=== PATIENT | male | born 1950 | race Caucasian/White ===

== ENCOUNTER 2016-09-24 12:22 | Emergency (ER) | payer OTHER ==
[2016-09-24] VITALS (16 sets, daily range): BP systolic 147–208; BP diastolic 94–175; PULSE 93–100; TEMP 36.8; O2SAT 94–99; Ht 172.7 cm; Wt 95.0 kg
[~2016-09-24] VITALS: Ht 172.7 cm; Wt 95.0 kg
[~2016-09-24 12:22] MED LIST: ACET-1256 PO; CARB25TA16 PO; CLON0.5T3 PO; CYAN10004 PO; DTRSR4 PO; FERR1TAB13 PO; FISHOIL PO; LISI-461 PO; METO25TA56 PO; NIAC500T8 PO; PRLSR20 PO; ROPI1TAB72 PO; ROPI4TAB3 PO; SNM/25100 PO; TAMS0.4C38 PO
[2016-09-24] MEDS ORDERED: SODIUM CHLORIDE 0.9% 500ML 500 ML IV STA (13:05)
[2016-09-24] MEDS ORDERED: PROPOFOL IV EMULSION 10 MG/ML 20 ML VIAL IV STA (13:05)
[2016-09-24] MEDS ORDERED: METOCLOPRAMIDE HCL INJ 5 MG/ML 2 ML VIAL IV STA (13:05)
[2016-09-24] MEDS ORDERED: FENTANYL CITRATE INJ 50 MCG/1 ML 2 ML VIAL IV STA ×2 (13:24→13:25)
--- NOTE | 2016-09-24 13:29 | DIAGNOSTIC IMAGING REPORT ---
RIGHT SHOULDER MIN 2 VIEWS ROUTINE CLINICAL HISTORY: Right shoulder pain COMPARISON: 08/23/2016 DISCUSSION: There is an anterior dislocation of the right shoulder. No fractures are visualized the provided images. IMPRESSION: Anterior dislocation. Electronically signed by: Sam Jordan M.D. 09/24/2016 1:27 PM Dictated Date/Time: 09/24/2016 1:25 PM
--- NOTE | 2016-09-24 13:33 | DIAGNOSTIC IMAGING REPORT ---
UPRIGHT AP CHEST RADIOGRAPH CLINICAL HISTORY: Right shoulder pain. Right shoulder dislocation COMPARISON STUDY: Chest radiograph June 27, 2016. FINDINGS: Electronic device is noted within the left hemithorax. Lung volumes are mildly diminished. No pneumothorax or pleural effusion is present. Cardiomediastinal silhouette is stable. A hiatal hernia is noted. There is no evidence of pulmonary edema. A suspected anterior right shoulder dislocation is better depicted on the right shoulder radiographs. IMPRESSION: 1. No acute cardiopulmonary findings. 2. Suspected anterior right shoulder dislocation, better depicted on the right shoulder radiographs. 3. Large hiatal hernia. Electronically signed by: Nilay Perdomo M.D. 09/24/2016 1:31 PM Dictated Date/Time: 09/24/2016 1:29 PM
--- NOTE | 2016-09-24 14:19 | DIAGNOSTIC IMAGING REPORT ---
RIGHT SHOULDER 1 VIEW CLINICAL HISTORY: POST REDUCTION Right. Right shoulder dislocation. COMPARISON STUDY: Right shoulder 09/24/2016. FINDINGS: Persistent anterior dislocation at the right shoulder. Large defect at the humeral head consistent with a Hill-Sachs impaction fracture remains unchanged. This is considered to be chronic. The clavicle is intact. IMPRESSION: No change in the right anterior shoulder dislocation. Electronically signed by: Sanket Kilpatrick M.D. 09/24/2016 2:17 PM Dictated Date/Time: 09/24/2016 2:15 PM
--- NOTE | 2016-09-24 14:29 | DIAGNOSTIC IMAGING REPORT ---
RIGHT SHOULDER 1 VIEW CLINICAL HISTORY: Pt c/o Rt shoulder pain Right. Postreduction. COMPARISON STUDY: Right shoulder 09/24/2016. FINDINGS: Status post reduction of the right anterior shoulder dislocation. Alignment is anatomic. There is a chronic Hill-Sachs impaction fracture. The right clavicle is intact. IMPRESSION: Status post reduction of the right anterior shoulder dislocation. Alignment is anatomic at this time. Electronically signed by: Sanket Kilpatrick M.D. 09/24/2016 2:27 PM Dictated Date/Time: 09/24/2016 2:26 PM
--- NOTE | 2016-09-24 14:38 | EMERGENCY ROOM VISIT NOTE ---
ED Visit Note I was asked by Dr. Maharaj to perform right shoulder reduction to an anterior dislocation. Dr. Maharaj provided conscious sedation. The patient was placed in a supine position. With scapular manipulation and manipulation of the arm, the shoulder was reduced. And initial post reduction film indicated that the shoulder was dislocated. An attempt was made again and the shoulder was easily reduced with manual manipulation. The patient tolerated the procedure well.
--- NOTE | 2016-10-29 18:18 | EMERGENCY ROOM VISIT NOTE ---
Post-Moderate Sedation Plan General Date of Moderate Sedation Sep 24, 2016. Review - Discharge Plan Post Moderate Sedation Plan: On clinical assessment, the patient appears to have tolerated the conscious sedation without complications. Patient is recovering as anticipated. Patient will continue to be monitored by nursing and may be discharged when conscious sedation discharge criteria are met.
--- NOTE | 2016-10-29 18:18 | EMERGENCY ROOM VISIT NOTE ---
Pre-Mod Sedation Assessment General Date of Moderate Sedation: Sep 24, 2016. Review Cardiovascular: regular rate, rhythm, no edema, no gallop, no JVD, no murmur, normal peripheral pulses Abdomen: normal bowel sounds, non tender, soft, no organomegaly, no pulsatile mass, normal rectal exam, occult blood negative Lungs: chest non-tender, lungs clear, normal breath sounds, no respiratory distress, no accessory muscle use Pre-Sedation Airway Assessment Oral Cavity: WNL Short Thick Neck: No Hx of Sleep Apnea: No Smoking Status: Unknown if Ever Smoked Mallampati Classification: Class I (Sft palate,uvula,fauces,pillar) ASA Classification: Class I Procedure Planning Contraindications-for Mod Sed: None Yes Notes The planned sedation has been discussed with the patient and consent obtained. I have identified the patient, determined the appropriateness of sedation and have assessed the patient immediately prior to the procedure. All medicine(s) and interventions are by my order.
--- NOTE | 2016-10-29 18:19 | EMERGENCY ROOM VISIT NOTE ---
History Report prepared by Oma: Fanny Arita Under the Supervision of: Dr. Karl Maharaj M.D. First contact with patient: 12:54 Chief Complaint: SHOULDER DISLOCATION Stated Complaint: DISLOCATED SHOULDER History of Present Illness The patient is a 66 year old male who presents to the Emergency Room for evaluation of a possible shoulder dislocation after propping his arm up on the refrigerator 2 hours prior to arrival. Currently, he rates his discomfort as an 8/10, and he is unable to move his right arm secondary to his discomfort. At the time of onset, the patient was leaning with his right arm propped up on the refrigerator when it suddenly gave out on him and felt like it dislocated from the socket. He has previously dislocated his right shoulder 4 other times, and his symptoms feel similar to that time. Patient has followed up with Dr. Man for his recurring shoulder dislocations but is not able to get an MRI secondary to stimulator placement for hx of Parkinson's. Patient denies other injuries or complaints at this time. 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 A total of 10 systems reviewed and were otherwise negative. Past Medical & Surgical Medical Problems: (1) COPD (chronic obstructive pulmonary disease) (2) Parkinson disease Family History Hypertension Kidney disease Kidney stones Social History Smoking Status: Former Smoker Alcohol Use: none Drug Use: none Housing Status: lives with family Occupation Status: disabled Current/Historical Medications Scheduled Clonazepam (Klonopin), 1 MG PO HS Cyanocobalamin (Vitamin B-12 1000 Mcg), 2,000 MCG PO DAILY Ferrous Sulfate (Kp Ferrous Sulfate), 1 TAB PO DAILY Fish Oil ([place]ine-3), 1 CAP PO BID Levodopa/Carbidopa (Sinemet 25MG/100MG), 1.5 TABS PO 6XD Levodopa/Carbidopa (Sinemet Cr 25MG/100MG), 1 TAB PO HS Lisinopril (Zestril), 10 MG PO DAILY Metoprolol Tartrate (Lopressor) (Lopressor), 25 MG PO BID Niacin (Niacin), 500 MG PO DAILY Omeprazole (Prilosec), 20 MG PO DAILY Ropinirole (Requip), 4 MG PO QID Ropinirole Hydrochloride (Ropinirole Er), 12 MG PO HS Tamsulosin Hcl (Flomax), 0.4 MG PO HS Tolterodine Tartrate (Detrol LA), 4 MG PO HS Scheduled PRN Acetaminophen (Tylenol), 1,000 MG PO Q6H PRN for Pain Allergies Coded Allergies: No Known Allergies (Unverified , 09/24/16) Physical Exam Vital Signs Date Time Temp Pulse Resp B/P Pulse Ox O2 Delivery O2 Flow Rate FiO2 09/24/16 15:04 99 18 161/101 94 Room Air 09/24/16 14:53 99 28 167/108 95 Room Air 09/24/16 14:48 98 28 173/105 98 Nasal Cannula 4.0 09/24/16 14:43 97 31 178/102 99 Nasal Cannula 4.0 09/24/16 14:38 98 26 164/107 99 Nasal Cannula 4.0 09/24/16 14:38 178/102 09/24/16 14:33 164/107 09/24/16 14:33 96 32 171/108 98 Nasal Cannula 4.0 09/24/16 14:29 171/108 09/24/16 14:28 97 32 147/98 97 Nasal Cannula 4.0 09/24/16 14:23 99 30 155/94 97 Nasal Cannula 4.0 09/24/16 14:23 147/98 09/24/16 14:22 98 22 97 09/24/16 14:18 95 34 156/98 96 Nasal Cannula 4.0 09/24/16 14:18 155/94 09/24/16 14:13 156/98 09/24/16 14:13 95 36 156/98 96 Nasal Cannula 4.0 09/24/16 14:08 95 30 168/101 96 Nasal Cannula 4.0 09/24/16 14:08 170/106 09/24/16 14:03 96 28 174/103 97 Nasal Cannula 4.0 09/24/16 14:03 168/101 09/24/16 14:01 174/103 09/24/16 13:58 98 24 208/175 95 Nasal Cannula 4.0 09/24/16 13:57 208/175 09/24/16 13:53 100 22 180/144 96 Nasal Cannula 4.0 09/24/16 13:52 102 40 180/144 95 09/24/16 13:50 70 09/24/16 13:43 166/99 09/24/16 13:43 93 36 166/99 97 Nasal Cannula 4.0 09/24/16 13:34 36.8 93 33 178/107 98 2.0 09/24/16 12:27 36.2 89 36 142/92 93 Room Air Physical Exam GENERAL: Patient is an elderly appearing 66 year old male. HEAD: Normocephalic atraumatic EYES: Ocular movements intact pupils equal and react to light OROPHARYNX mucous membranes are moist no exudates present no erythema or edema present NECK: Supple no nuchal rigidity CHEST: Good equal expansion LUNGS: Clear and equal to auscultation CARDIAC: Normal S1 and S2 ABDOMEN: Soft nontender no guarding BACK: No CVA tenderness EXTREMITIES: Right shoulder dislocated. NVI at the wrist. Good range of motion of the elbow and wrist. NEURO: Patient is following commands is answering questions appropriately. Alert and oriented x3 Cranial Nerves 2-12 grossly intact Medical Decision & Procedures ER Provider Diagnostic Interpretation: X-ray results as stated below per interpretation by me and the radiologist: RIGHT SHOULDER MIN 2 VIEWS ROUTINE CLINICAL HISTORY: Right shoulder pain COMPARISON: 08/23/2016 DISCUSSION: There is an anterior dislocation of the right shoulder. No fractures are visualized the provided images. IMPRESSION: Anterior dislocation. Electronically signed by: Sam Jordan M.D. 09/24/2016 1:27 PM Dictated Date/Time: 09/24/2016 1:25 PM UPRIGHT AP CHEST RADIOGRAPH CLINICAL HISTORY: Right shoulder pain. Right shoulder dislocation COMPARISON STUDY: Chest radiograph June 27, 2016. FINDINGS: Electronic device is noted within the left hemithorax. Lung volumes are mildly diminished. No pneumothorax or pleural effusion is present. Cardiomediastinal silhouette is stable. A hiatal hernia is noted. There is no evidence of pulmonary edema. A suspected anterior right shoulder dislocation is better depicted on the right shoulder radiographs. IMPRESSION: 1. No acute cardiopulmonary findings. 2. Suspected anterior right shoulder dislocation, better depicted on the right shoulder radiographs. 3. Large hiatal hernia. Electronically signed by: Nilay Perdomo M.D. 09/24/2016 1:31 PM Dictated Date/Time: 09/24/2016 1:29 PM RIGHT SHOULDER 1 VIEW CLINICAL HISTORY: POST REDUCTION Right. Right shoulder dislocation. COMPARISON STUDY: Right shoulder 09/24/2016. FINDINGS: Persistent anterior dislocation at the right shoulder. Large defect at the humeral head consistent with a Hill-Sachs impaction fracture remains unchanged. This is considered to be chronic. The clavicle is intact. IMPRESSION: No change in the right anterior shoulder dislocation. Electronically signed by: Sanket Kilpatrick M.D. 09/24/2016 2:17 PM Dictated Date/Time: 09/24/2016 2:15 PM RIGHT SHOULDER 1 VIEW CLINICAL HISTORY: Pt c/o Rt shoulder pain Right. Postreduction. COMPARISON STUDY: Right shoulder 09/24/2016. FINDINGS: Status post reduction of the right anterior shoulder dislocation. Alignment is anatomic. There is a chronic Hill-Sachs impaction fracture. The right clavicle is intact. IMPRESSION: Status post reduction of the right anterior shoulder dislocation. Alignment is anatomic at this time. Electronically signed by: Sanket Kilpatrick M.D. 09/24/2016 2:27 PM Dictated Date/Time: 09/24/2016 2:26 PM Medications Administered Medications (Trade) Dose Ordered Sig/Luz Route Start Time Stop Time Status Last Admin Dose Admin Metoclopramide HCl 10 mg 10 mg NOW STAT IV 09/24/16 13:05 09/24/16 13:07 DC 09/24/16 13:44 10 MG Sodium Chloride (Nss 500ml) 500 ml @ 999 mls/hr Q31M STAT IV 09/24/16 13:05 09/24/16 13:35 DC 09/24/16 13:45 999 MLS/HR Fentanyl Citrate (Fentanyl Inj) 100 mcg NOW STAT IV 09/24/16 13:25 09/24/16 13:27 DC 09/24/16 13:44 100 MCG Procedure Procedural Sedation Indication Shoulder dislocation. Total time: 30 minutes. Written consent was obtained after the risks and benefits were explained to the patient and , including, but not limited to aspiration, allergic reaction, breathing difficulties, cardiac complications, vomiting, pain, event recall, bleeding, and/or infection. Pre-sedation examination and paperwork completed. The patient was on 100% oxygen via NRB prior to the procedure. Continous end tidal CO2 monitoring, pulse oximetry, and cardiac monitoring were utilized. Suction, airway equipment, medications, respiratory equipment, and appropriate personnel were prepared prior to the initiation of the procedure. A time out was taken. Sedation was achieved utilizing 260 mg of Propofol in tritiated dosages of 20 mg. After I observed the patient had reached the appropriate level of sedation the main procedure was performed without complication. Sedation was discontinued and the monitoring continued. The patient recovered quickly from the effects of the medication without complication or adverse event. ED Course 1255: Past medical records reviewed. The patient was evaluated in room C8. A complete history and physical examination was performed. 1305: I discussed the reduction procedure and risks of conscious sedation with the patient and his . They verbalized their understanding and agreement with this. NSS 500 ml @ 999 mls/hr IV and Reglan 10 mg IV and Propofol 50 mg IV were ordered. 1324: Fentanyl Citrate 50 mcg IV and Fentanyl Citrate 100 mcg IV were ordered. 1345: Patient was consciously sedated at this time, and reduction was preformed with the help of Mary Russell PA-C. Refer to her note for procedure detail as well. 1420: Patient's shoulder was successfully reduced. Final x-rays will be obtained to make sure it is in proper place. 1430: I updated the patient on the results of his radiology reports. Additional discharge instructions were also discussed. He will be referred to orthopedics as an outpatient. He verbalized his understanding and agreement with the treatment plan, and he is now ready for disposition. Medical Decision Differential diagnosis: Etiologies such as fracture, dislocation, neurovascular compromise, compartment syndrome, soft tissue injury, as well as others were entertained. This is a 66-year-old male who presents emergency department complaining of. The shoulder was reduced by Mary Russell under conscious sedation as above. Please see her note. Patient will follow-up with orthopedics. Patient was in agreement with the treatment plan. Impression Primary Impression: Dislocation of right shoulder joint Scribe Attestation The scribe's documentation has been prepared under my direction and personally reviewed by me in its entirety. I confirm that the note above accurately reflects all work, treatment, procedures, and medical decision making performed by me. Departure Information Dispostion Home / Self-Care Referrals Miguel Angel Curran D.O. (PCP) Forms HOME CARE DOCUMENTATION FORM, IMPORTANT VISIT INFORMATION Patient Instructions My [facility] Additional Instructions Follow up with DR Vazquez's office You received narcotic or benzodiazepene medication while in the emergency room today. Do not drive, operate heavy machinery, or drink alcohol under the influence of this medication. You have been examined and treated today on an emergency basis only. This is not a substitute for, or an effort to provide, complete comprehensive medical care. It is impossible to recognize and treat all injuries or illnesses in a single emergency department visit. It is therefore important that you follow up closely with Dr Curran. Call as soon as possible for an appointment. Thank you for your time and consideration. I look forward to speaking with you again soon. Please don't hesitate to call us if you have any questions. Problem Qualifiers Primary Impression: Dislocation of right shoulder joint Encounter type: initial encounter Qualified Codes: S43.004A - Unspecified dislocation of right shoulder joint, initial encounter
[2016-12-10] MEDS ORDERED: CPR500 PO ×2 (14:24→14:25)
[2016-12-10] MEDS ORDERED: LCTX PO ×2 (14:24→14:25)
[2016-12-10] MEDS ORDERED: FLM4 PO ×2 (14:24→14:25)
[2017-03-21] MEDS ORDERED: VNCS250 PO (17:28)
[2017-03-21] MEDS ORDERED: CLON0.5T3 PO (17:28)
[2017-03-21] MEDS ORDERED: OXYC10SO PO (17:28)
[2017-03-21] MEDS ORDERED: LORA1TAB13 PO (17:28)
[2017-03-21] MEDS ORDERED: MLXC PO (17:28)
[2017-03-21] MEDS ORDERED: SCOP1DIS14 TD (17:28)
[2017-03-21] MEDS ORDERED: CLCUDL PO (17:28)
== END 2016-09-24 15:10 | disposition home or self-care (01) ==
LOC: C.EDB 12:24 → C.ED 15:10
DX: S43.004A Unspecified dislocation of right shoulder joint, initial encounter (principal); J44.9 Chronic obstructive pulmonary disease, unspecified; G20 Parkinson's disease; Z79.899 Other long term (current) drug therapy; Z87.891 Personal history of nicotine dependence; Z82.49 Family history of ischemic heart disease and other diseases of the circulatory system; Z84.1 Family history of disorders of kidney and ureter; X58.XXXA Exposure to other specified factors, initial encounter; Y99.8 Other external cause status

== ENCOUNTER 2016-12-08 11:27 | Inpatient (IN) | payer OTHER ==
[~2016-12-08] VITALS: Ht 172.7 cm; Wt 96.0 kg
[2016-12-08 12:22] LABS: BASO % 0.1 %; BASO ABS # 0.02 K/uL (0-0.2); COMPLETE YES; EOS % 0.6 %; HEMATOCRIT 35.3 % (42-52); IG% 0.3 %; LYMPH % 10.5 %; MEAN CELL VOLUME 80.6 fL (80-100); MEAN CORPUSCULAR HEMOGLOBIN 25.8 pg (25-34); MEAN PLATELET VOLUME 9.9 fL (7.4-10.4); MONO % 6.6 %; NEUT % 81.9 %; PLATELET COUNT 269 K/uL (130-400); RED BLOOD COUNT 4.38 M/uL (4.7-6.1); WHITE BLOOD COUNT 14.27 K/uL (4.8-10.8)
[2016-12-08 12:40] LABS: BUN/CREATININE RATIO 15.9 (10-20); CALCIUM 8.4 mg/dl (8.5-10.1); POTASSIUM 3.9 mmol/L (3.5-5.1)
[2016-12-08 13:36] LABS: URINE APPEARANCE CLOUDY (CLEAR); URINE BILIRUBIN NEG (NEG); URINE COLOR YELLOW; URINE EPITHELIAL CELL AUTO 0-5 /lpf (0-5); URINE NITRITE POS (NEG); UROBILINOGEN NEG (NEG); ZZUR CULT IF INDIC CLEAN CATCH YES
[2016-12-08] MEDS ORDERED: SODIUM CHLORIDE 0.9% 1000ML 1,000 ML IV STA (13:41)
[2016-12-08 13:57] LABS: MANUAL MICROSCOPIC REQUIRED? NO; REVIEW REQ? NO
[2016-12-08] MEDS ORDERED: CEFTRIAXONE SOD INJ 1 GM ADDVIAL IV STA (14:23)
--- NOTE | 2016-12-08 14:23 | DIAGNOSTIC IMAGING REPORT ---
CT OF THE ABDOMEN AND PELVIS WITHOUT CONTRAST, STONE PROTOCOL CLINICAL HISTORY: Inability to void. Dark urine. COMPARISON STUDY: CT of the abdomen and pelvis August 19, 2012. TECHNIQUE: Helical axial images of the abdomen and pelvis were obtained without IV or oral contrast according to renal stone protocol. FINDINGS: A moderate sized hiatal hernia is noted. Left renal calculi measure up to 2 mm. There are no ureteral calculi. There is a 2 mm calculus within the dependent aspect of the bladder. There is minimal infiltration adjacent to the bladder wall. Evaluation of the abdomen and pelvis is suboptimal on this unenhanced exam. A water attenuation 9.8 cm lesion arising from the lower pole of the left kidney likely reflects a cyst. Unenhanced images of the adrenal glands, liver, spleen and pancreas are normal. There is a small diverticulum arising from the second portion of the duodenum. There is no evidence for a bowel obstruction. There is colonic diverticulosis without evidence for acute diverticulitis. A 3 cm x 1.7 cm tubular fat containing structure along the anterior aspect of the mid descending colon is noted. There is a small fat-containing umbilical hernia. There is no lymphadenopathy. Note is made of a 1.1 cm diverticulum arising from the left lateral aspect of the bladder. No suspicious osseous lesions are present. IMPRESSION: 1. Punctate left renal calculi. No ureteral calculi or hydronephrosis. 2 mm bladder calculus. 2. 9.8 cm water attenuation left renal lesion. Although suboptimally assessed on this unenhanced exam, this likely reflects a cyst. 3. 3 cm x 1.7 cm tubular fat-containing abnormality along the anterior aspect of the mid descending colon. This represents epiploic appendagitis which may be subacute. 4. Minimal infiltration/irregularity of the bladder wall which could be correlated with urinalysis. Electronically signed by: Nilay Perdomo M.D. 12/08/2016 2:22 PM Dictated Date/Time: 12/08/2016 2:13 PM
--- NOTE | 2016-12-08 15:16 | EMERGENCY ROOM VISIT NOTE ---
History Report prepared by Oma: Manan Duarte Under the Supervision of: Dr. Hugo Evans M.D. First contact with patient: 11:38 Chief Complaint: UNABLE TO VOID Stated Complaint: CANNOT URINATE History of Present Illness The patient is a 66 year old male who presents to the Emergency Room with complaints of persistent difficulty urinating since yesterday. The patient has only been able to put out a few oz. of urine despite drinking a lot of fluid. The small amount of urine was dark. The patient's states that he drank 48 oz. of fluid since 0500 today. The patient has been feeling the urge to urinate but does not currently feel that way. The patient has never had trouble voiding before. He denies any recent bladder infections, UTIs, or urinary catheterizations. He is short of breath at baseline and has lymphedema at baseline per his . The patient denies any history of heart disease. He does have a history of Parkinson's. The patient follows up with [facility]. Patient denies LOC, headache, fevers, chills, diaphoresis, visual changes, neck pain, chest pain, breathing difficulties, nausea, vomiting, abdominal pain, back pain, melena, hematochezia, numbness, weakness, lymphadenopathy, rash, or other complaints. Source of History: patient, spouse/significant other Onset: yesterday Position: other (urinary ) Quality: other (difficulty voiding) Timing: other (persistent) Associated Symptoms: + urinary symptoms (dark) Review of Systems See HPI for pertinent positives and negatives. A total of ten systems were reviewed and were otherwise negative. Past Medical & Surgical Medical Problems: (1) COPD (chronic obstructive pulmonary disease) (2) Parkinson disease Family History Hypertension Kidney disease Kidney stones Social History Smoking Status: Former Smoker Alcohol Use: none Drug Use: none Housing Status: lives with family Occupation Status: disabled Current/Historical Medications Scheduled Clonazepam (Klonopin), 1 MG PO HS Cyanocobalamin (Vitamin B-12 1000 Mcg), 2,000 MCG PO DAILY Fish Oil ([place]-3), 1 CAP PO BID Levodopa/Carbidopa (Sinemet 25MG/100MG), 1.5 TABS PO 6XD Levodopa/Carbidopa (Sinemet Cr 25MG/100MG), 1 TAB PO HS Lisinopril (Zestril), 10 MG PO DAILY Metoprolol Tartrate (Lopressor) (Lopressor), 25 MG PO BID Niacin (Niacin), 500 MG PO DAILY Omeprazole (Prilosec), 20 MG PO DAILY Ropinirole (Requip), 4 MG PO QID Ropinirole Hydrochloride (Ropinirole Er), 12 MG PO HS Tamsulosin Hcl (Flomax), 0.4 MG PO HS Tolterodine Tartrate (Detrol LA), 4 MG PO HS Scheduled PRN Acetaminophen (Tylenol), 1,000 MG PO Q6H PRN for Pain Allergies Coded Allergies: Sulindac (Unverified Adverse Reaction, Intermediate, STOMACH IRRATION, ) Physical Exam Vital Signs Date Time Temp Pulse Resp B/P Pulse Ox O2 Delivery O2 Flow Rate FiO2 12/08/16 14:47 76 18 118/71 96 Room Air 12/08/16 13:56 86 20 125/74 96 Room Air 12/08/16 12:56 84 18 128/77 97 Room Air 12/08/16 11:33 37.0 95 22 130/67 93 Room Air Physical Exam GENERAL: Awake, alert, well-appearing, in no distress HENT: Normocephalic, atraumatic. Oropharynx unremarkable. EYES: Normal conjunctiva. Sclera non-icteric. NECK: Supple. No nuchal rigidity. FROM. No JVD. RESPIRATORY: Clear to auscultation. CARDIAC: Regular rate, normal rhythm. Extremities warm and well perfused. Pulses equal. ABDOMEN: Soft, non-distended. No tenderness to palpation. No rebound or guarding. No masses. RECTAL: Deferred. MUSCULOSKELETAL: Chest examination reveals no tenderness. The back is symmetrical on inspection without obvious abnormality. There is no CVA tenderness to palpation. No joint edema. LOWER EXTREMITIES: 1+ lower extremity edema. Calves are equal size bilaterally and non-tender. No discoloration. NEURO: Normal sensorium. No sensory or motor deficits noted. SKIN: No rash or jaundice noted. Medical Decision & Procedures ER Provider Diagnostic Interpretation: Radiology results as stated below per my review and radiologist interpretation CT OF THE ABDOMEN AND PELVIS WITHOUT CONTRAST, STONE PROTOCOL CLINICAL HISTORY: Inability to void. Dark urine. COMPARISON STUDY: CT of the abdomen and pelvis August 19, 2012. TECHNIQUE: Helical axial images of the abdomen and pelvis were obtained without IV or oral contrast according to renal stone protocol. FINDINGS: A moderate sized hiatal hernia is noted. Left renal calculi measure up to 2 mm. There are no ureteral calculi. There is a 2 mm calculus within the dependent aspect of the bladder. There is minimal infiltration adjacent to the bladder wall. Evaluation of the abdomen and pelvis is suboptimal on this unenhanced exam. A water attenuation 9.8 cm lesion arising from the lower pole of the left kidney likely reflects a cyst. Unenhanced images of the adrenal glands, liver, spleen and pancreas are normal. There is a small diverticulum arising from the second portion of the duodenum. There is no evidence for a bowel obstruction. There is colonic diverticulosis without evidence for acute diverticulitis. A 3 cm x 1.7 cm tubular fat containing structure along the anterior aspect of the mid descending colon is noted. There is a small fat-containing umbilical hernia. There is no lymphadenopathy. Note is made of a 1.1 cm diverticulum arising from the left lateral aspect of the bladder. No suspicious osseous lesions are present. IMPRESSION: 1. Punctate left renal calculi. No ureteral calculi or hydronephrosis. 2 mm bladder calculus. 2. 9.8 cm water attenuation left renal lesion. Although suboptimally assessed on this unenhanced exam, this likely reflects a cyst. 3. 3 cm x 1.7 cm tubular fat-containing abnormality along the anterior aspect of the mid descending colon. This represents epiploic appendagitis which may be subacute. 4. Minimal infiltration/irregularity of the bladder wall which could be correlated with urinalysis. Electronically signed by: Nilay Perdomo M.D. 12/08/2016 2:22 PM Dictated Date/Time: 12/08/2016 2:13 PM Laboratory Results 12/08/16 12:00 Red Blood Count 4.38, Mean Corpuscular Volume 80.6, Mean Corpuscular Hemoglobin 25.8, Mean Corpuscular Hemoglobin Concent 32.0, Mean Platelet Volume 9.9, Neutrophils (%) (Auto) 81.9, Lymphocytes (%) (Auto) 10.5, Monocytes (%) (Auto) 6.6, Eosinophils (%) (Auto) 0.6, Basophils (%) (Auto) 0.1, Neutrophils # (Auto) 11.69, Lymphocytes # (Auto) 1.50, Monocytes # (Auto) 0.94, Eosinophils # (Auto) 0.08, Basophils # (Auto) 0.02 12/08/16 12:00 Test 12/08/16 12:00 12/08/16 13:00 White Blood Count 14.27 K/uL (4.8-10.8) Red Blood Count 4.38 M/uL (4.7-6.1) Hemoglobin 11.3 g/dL (14.0-18.0) Hematocrit 35.3 % (42-52) Mean Corpuscular Volume 80.6 fL (80-100) Mean Corpuscular Hemoglobin 25.8 pg (25-34) Mean Corpuscular Hemoglobin Concent 32.0 g/dl (32-36) Platelet Count 269 K/uL (130-400) Mean Platelet Volume 9.9 fL (7.4-10.4) Neutrophils (%) (Auto) 81.9 % Lymphocytes (%) (Auto) 10.5 % Monocytes (%) (Auto) 6.6 % Eosinophils (%) (Auto) 0.6 % Basophils (%) (Auto) 0.1 % Neutrophils # (Auto) 11.69 K/uL (1.4-6.5) Lymphocytes # (Auto) 1.50 K/uL (1.2-3.4) Monocytes # (Auto) 0.94 K/uL (0.11-0.59) Eosinophils # (Auto) 0.08 K/uL (0-0.5) Basophils # (Auto) 0.02 K/uL (0-0.2) RDW Standard Deviation 47.3 fL (36.4-46.3) RDW Coefficient of Variation 16.2 % (11.5-14.5) Immature Granulocyte % (Auto) 0.3 % Immature Granulocyte # (Auto) 0.04 K/uL (0.00-0.02) Anion Gap 6.0 mmol/L (3-11) Est Creatinine Clear Calc Drug Dose 83.8 ml/min Estimated GFR () 91.8 Estimated GFR (Non- 79.2 BUN/Creatinine Ratio 15.9 (10-20) Calcium Level 8.4 mg/dl (8.5-10.1) Total Bilirubin 0.9 mg/dl (0.2-1) Direct Bilirubin 0.2 mg/dl (0-0.2) Aspartate Amino Transf (AST/SGOT) 24 U/L (15-37) Alanine Aminotransferase (ALT/SGPT) 11 U/L (12-78) Alkaline Phosphatase 56 U/L (45-117) Total Creatine Kinase 396 U/L (39-308) Total Protein 6.9 gm/dl (6.4-8.2) Albumin 3.3 gm/dl (3.4-5.0) Lipase 86 U/L (73-393) Urine Color YELLOW Urine Appearance CLOUDY (CLEAR) Urine pH 5.0 (4.5-7.5) Urine Specific [place] 1.020 (1.000-1.030) Urine Protein TRACE (NEG) Urine Glucose (UA) NEG (NEG) Urine Ketones TRACE (NEG) Urine Occult Blood NEG (NEG) Urine Nitrite POS (NEG) Urine Bilirubin NEG (NEG) Urine Urobilinogen NEG (NEG) Urine Leukocyte Esterase LARGE (NEG) Urine WBC (Auto) >30 /hpf (0-5) Urine RBC (Auto) 0-4 /hpf (0-4) Urine Hyaline Casts (Auto) 10-30 /lpf (0-5) Urine Epithelial Cells (Auto) 0-5 /lpf (0-5) Urine Bacteria (Auto) 4+ (NEG) Laboratory results reviewed by me Medications Administered Medications (Trade) Dose Ordered Sig/Luz Route Start Time Stop Time Status Last Admin Dose Admin Sodium Chloride (Nss 1000ml) 1,000 ml @ 200 mls/hr Q5H STAT IV 12/08/16 13:41 12/08/16 18:40 12/08/16 13:54 200 MLS/HR Ceftriaxone Sodium (Rocephin Inj) 1 gm NOW STAT IV 12/08/16 14:23 12/08/16 14:24 DC 12/08/16 14:43 1 GM ED Course 1154: The patient was evaluated in room C12b. A complete history and physical exam was performed. 1200: Portable ultrasound performed. 1341: NSS 1000 ml @ 200 mls/hr. 1400: Patient refused a catheter. 1423: Rocephin 1 gm IV. 1454: Discussed the case with Julienne Mejia PA-C, [facility] Hospitalist. The patient will be evaluated. Medical Decision Triage Nursing notes reviewed. The patient's presentation and history were concerning for inability urinate. Etiologies such as UTI, prostatitis, urinary retention, renal colic, kidney stone, obstruction, electrolyte abnormality, as well as others were entertained. The patient was evaluated. A bladder scan was performed and did not reveal a significant amount of urine. I did do a bedside ultrasound and there was some urine in the bladder. It was difficult to say the exact volume. The patient had a 14,000 white count on CBC. His kidney function was normal. His urinalysis was obtained and the patient had findings very concerning for infection. CT was performed and showed the cystitis as well as possible epiploic appendagitis. The bladder was mildly distended. The patient was refusing catheter drainage. He was only able to urinate small amounts in the Emergency Room. He was hydrated. He was given IV Rocephin. Due to the findings further management was felt to be appropriate in the hospital. Consultation was made with internal medicine. The patient was evaluated. T he chart was completed utilizing [employer] Speech voice recognition software. Grammatical errors, random word insertions, pronoun errors, and incomplete sentences are an occasional consequence of this system due to software limitations, ambient noise, and hardware issues. Any formal questions or concerns about the content, text, or information contained within the body of this dictation should be directly addressed to the physician for clarification. Consults Time Called: 1450 Consulting Physician: Julienne Mejia PA-C, [facility] Returned Call: [phone]: Discussed the case with Julienne Mejia PA-C, [facility]. The patient will be evaluated. Impression Primary Impression: UTI (urinary tract infection) Additional Impression: Urinary retention Scribe Attestation The scribe's documentation has been prepared under my direction and personally reviewed by me in its entirety. I confirm that the note above accurately reflects all work, treatment, procedures, and medical decision making performed by me. Departure Information Dispostion Being Evaluated By Hospitalist Referrals Miguel Angel Curran D.O. (PCP) Patient Instructions My [facility] Problem Qualifiers
[2016-12-08] MEDS ORDERED: ONDANSETRON INJ 2 MG/ML 2 ML VIAL IV PRN (15:45)
[2016-12-08] MEDS ORDERED: ACETAMINOPHEN 325 MG TAB PO PRN (15:45)
[2016-12-08] MEDS ORDERED: IV FLUIDS COMPLETED PRN (16:00)
[2016-12-08] MEDS ORDERED: METR0.7527 EXT (16:01)
--- NOTE | 2016-12-08 16:02 | Progress Note ---
Progress Note Date of Service Dec 08, 2016. Progress Note ATTENDING ADDENDUM care coordinated with ROS Mejia please refer to her notes for full details, I agree with her notes patient seen and examined, records reviewed by myself as well on exam, patient seen resting in bed, comfortable denies abdominal pain, nausea no chest pain, dyspnea respiration at baseline no other symptoms VS noted and reviewed oriented x 3, not in distress, speaks in sentences with no effort nor accessory muscle use normal rate, regular rhythm, no murmurs clear breath sounds bilaterally non distended, soft, nontender grade 1 lower leg edema, NO erythema, warmth no neuro deficits WBC 14.2 Crea 1.0 UA: indicative of UTI ASSESSMENT/PLAN> 66 year old male with history of Parkinson, Hypertension, BPH presenting with "not producing enough urine since yesterday". POSSIBLE UTI no previous cultures ff up urine cultures empiric Ceftriaxone IV OLIGURIA, STRAINING HISTORY OF BPH r/o URINARY RETENTION Bladder scan QS PRN Straight Cath HOLD Detrol start Flomax consult Urology (patient requesting [facility]) other diagnoses and plan of care as per ROS Mejia's notes John Villanueva MD
[2016-12-08] MEDS ORDERED: CARBIDOPA/LEVODOPA 25/100MG TAB PO SCH (16:15)
--- NOTE | 2016-12-08 16:36 | History and Physical ---
History & Physical Date & Time of Service: Dec 08, 2016 at 16:04 Chief Complaint: Cannot Urinate Primary Care Physician: Miguel Angel Curran D.O. History of Present Illness Source: patient, family, clinic records This is a 66 year old male with PMH of Parkinson's disease, HTN, venous insufficiency, history of overactive bladder, BPH, and other problems listed below who presents to the ED with oliguria starting yesterday. Patient reports baseline hesitancy and nocturia every hour while wearing compression devices for lymphedema. Then since yesterday is producing minimal urine. Has produced total of 4 oz since yesterday. Has associated dysuria, urgency, darkened urine. He refused catheterization in the ER. No worsening of chronic SOB and chronic BLLE edema from baseline. Has chronic slurred speech unchanged from baseline. Patient is wheelchair bound since June when he dislocated his right shoulder and could no longer use a walker. Has appointment with [facility] for shoulder. Patient denies fever, chills, dizziness, weakness, confusion, cough, chest pain, abdominal pain, flank pain, decreased appetite, N/V, diarrhea, hematuria. Denies history of prior UTI. States prior kidney stone passed spontaneously. He takes Detrol for OAB. Not on any BPH medications. Has seen Dr. Arthur back in 2014. Past Medical/Surgical History Medical Problems: (1) BPH (benign prostatic hypertrophy) Status: Chronic (2) Dyslipidemia Status: Chronic (3) GERD (gastroesophageal reflux disease) Status: Chronic (4) History of kidney stones Status: Chronic (5) HTN (hypertension) Status: Chronic (6) Iron deficiency anemia Status: Chronic (7) Overactive bladder Status: Chronic (8) Parkinson disease Status: Chronic (9) Venous insufficiency Status: Chronic Surgical Problems: (1) H/O inguinal hernia repair Status: Chronic (2) S/P deep brain stimulator placement Status: Chronic (3) S/p tonsil surgery Status: Chronic Family History Diabetes mellitus MOTHER FH: asthma FATHER FH: prostate cancer FATHER Hypertension FATHER SISTER Kidney disease Kidney stones Social History Smoking Status: Former Smoker (smoked as a teenager) Alcohol Use: none Drug Use: none Marital Status: Housing status: lives with significant other ( is his caretakers. has been able to care for him without issues.) Occupational Status: disabled Multi-Drug Resistant Organisms History of MDRO: No Allergies Coded Allergies: Sulindac (Unverified Adverse Reaction, Intermediate, STOMACH IRRATION, ) Home Medications Scheduled Clonazepam (Klonopin), 1 MG PO HS Cyanocobalamin (Vitamin B-12 1000 Mcg), 1,000 MCG PO DAILY Fish Oil ([place]-3), 1 CAP PO BID Levodopa/Carbidopa (Sinemet 25MG/100MG), 1.5 TABS PO 6XD Levodopa/Carbidopa (Sinemet Cr 25MG/100MG), 1 TAB PO HS Lisinopril (Zestril), 10 MG PO DAILY Metoprolol Tartrate (Lopressor) (Lopressor), 25 MG PO BID Metronidazole (Topical) (Metrogel), 1 APPLN EXT DAILY Niacin (Niacin), 500 MG PO DAILY Omeprazole (Prilosec), 20 MG PO DAILY Ropinirole (Requip), 4 MG PO QID Ropinirole Hydrochloride (Ropinirole Er), 12 MG PO HS Tolterodine Tartrate (Detrol LA), 4 MG PO HS Review of Systems Ten point ROS performed with pertinent positives and negatives noted in HPI. Physical Exam Vital Signs Date Time Temp Pulse Resp B/P Pulse Ox O2 Delivery O2 Flow Rate FiO2 12/08/16 14:47 76 18 118/71 96 Room Air 12/08/16 13:56 86 20 125/74 96 Room Air 12/08/16 12:56 84 18 128/77 97 Room Air 12/08/16 11:33 37.0 95 22 130/67 93 Room Air General Appearance: WD/WN, no apparent distress, + pertinent finding (pleasant alert 66 year old male, no distress) Head: normocephalic, atraumatic Eyes: normal inspection, PERRL, sclerae normal ENT: pharynx normal, + pertinent finding (hearing aids present) Neck: supple, trachea midline Respiratory/Chest: lungs clear, normal breath sounds, no respiratory distress, no accessory muscle use Cardiovascular: regular rate, rhythm, no murmur Abdomen/GI: normal bowel sounds, non tender, soft Back: no CVA tenderness Extremities/Musculoskelatal: no calf tenderness, + pedal edema (trace pretibial edema bilaterally), + pertinent finding (right upper extremity in sling) Neurologic/Psych: alert, normal mood/affect, oriented x 3, + pertinent finding (mildly slurred speech- at baseline per . no focal motor deficit.) Skin: normal color, warm/dry Diagnostics Laboratory Results Results Past 24 Hours Test 12/08/16 12:00 12/08/16 13:00 Range/Units White Blood Count 14.27 4.8-10.8 K/uL Red Blood Count 4.38 4.7-6.1 M/uL Hemoglobin 11.3 14.0-18.0 g/dL Hematocrit 35.3 42-52 % Mean Corpuscular Volume 80.6 80-100 fL Mean Corpuscular Hemoglobin 25.8 25-34 pg Mean Corpuscular Hemoglobin Concent 32.0 32-36 g/dl Platelet Count 269 130-400 K/uL Mean Platelet Volume 9.9 7.4-10.4 fL Neutrophils (%) (Auto) 81.9 % Lymphocytes (%) (Auto) 10.5 % Monocytes (%) (Auto) 6.6 % Eosinophils (%) (Auto) 0.6 % Basophils (%) (Auto) 0.1 % Neutrophils # (Auto) 11.69 1.4-6.5 K/uL Lymphocytes # (Auto) 1.50 1.2-3.4 K/uL Monocytes # (Auto) 0.94 0.11-0.59 K/uL Eosinophils # (Auto) 0.08 0-0.5 K/uL Basophils # (Auto) 0.02 0-0.2 K/uL RDW Standard Deviation 47.3 36.4-46.3 fL RDW Coefficient of Variation 16.2 11.5-14.5 % Immature Granulocyte % (Auto) 0.3 % Immature Granulocyte # (Auto) 0.04 0.00-0.02 K/uL Sodium Level 136 136-145 mmol/L Potassium Level 3.9 3.5-5.1 mmol/L Chloride Level 101 98-107 mmol/L Carbon Dioxide Level 29 21-32 mmol/L Anion Gap 6.0 3-11 mmol/L Blood Urea Nitrogen 16 7-18 mg/dl Creatinine 1.00 0.60-1.40 mg/dl Est Creatinine Clear Calc Drug Dose 83.8 ml/min Estimated GFR () 91.8 Estimated GFR (Non- 79.2 BUN/Creatinine Ratio 15.9 10-20 Random Glucose 99 70-99 mg/dl Calcium Level 8.4 8.5-10.1 mg/dl Total Bilirubin 0.9 0.2-1 mg/dl Direct Bilirubin 0.2 0-0.2 mg/dl Aspartate Amino Transf (AST/SGOT) 24 15-37 U/L Alanine Aminotransferase (ALT/SGPT) 11 12-78 U/L Alkaline Phosphatase 56 45-117 U/L Total Creatine Kinase 396 39-308 U/L Total Protein 6.9 6.4-8.2 gm/dl Albumin 3.3 3.4-5.0 gm/dl Lipase 86 73-393 U/L Urine Color YELLOW Urine Appearance CLOUDY CLEAR Urine pH 5.0 4.5-7.5 Urine Specific [place] 1.020 1.000-1.030 Urine Protein TRACE NEG Urine Glucose (UA) NEG NEG Urine Ketones TRACE NEG Urine Occult Blood NEG NEG Urine Nitrite POS NEG Urine Bilirubin NEG NEG Urine Urobilinogen NEG NEG Urine Leukocyte Esterase LARGE NEG Urine WBC (Auto) >30 0-5 /hpf Urine RBC (Auto) 0-4 0-4 /hpf Urine Hyaline Casts (Auto) 10-30 0-5 /lpf Urine Epithelial Cells (Auto) 0-5 0-5 /lpf Urine Bacteria (Auto) 4+ NEG Microbiology Results 12/08/16 Urine Culture, Received Pending Diagnostic Radiology CT OF THE ABDOMEN AND PELVIS WITHOUT CONTRAST, STONE PROTOCOL CLINICAL HISTORY: Inability to void. Dark urine. COMPARISON STUDY: CT of the abdomen and pelvis August 19, 2012. TECHNIQUE: Helical axial images of the abdomen and pelvis were obtained without IV or oral contrast according to renal stone protocol. FINDINGS: A moderate sized hiatal hernia is noted. Left renal calculi measure up to 2 mm. There are no ureteral calculi. There is a 2 mm calculus within the dependent aspect of the bladder. There is minimal infiltration adjacent to the bladder wall. Evaluation of the abdomen and pelvis is suboptimal on this unenhanced exam. A water attenuation 9.8 cm lesion arising from the lower pole of the left kidney likely reflects a cyst. Unenhanced images of the adrenal glands, liver, spleen and pancreas are normal. There is a small diverticulum arising from the second portion of the duodenum. There is no evidence for a bowel obstruction. There is colonic diverticulosis without evidence for acute diverticulitis. A 3 cm x 1.7 cm tubular fat containing structure along the anterior aspect of the mid descending colon is noted. There is a small fat-containing umbilical hernia. There is no lymphadenopathy. Note is made of a 1.1 cm diverticulum arising from the left lateral aspect of the bladder. No suspicious osseous lesions are present. IMPRESSION: 1. Punctate left renal calculi. No ureteral calculi or hydronephrosis. 2 mm bladder calculus. 2. 9.8 cm water attenuation left renal lesion. Although suboptimally assessed on this unenhanced exam, this likely reflects a cyst. 3. 3 cm x 1.7 cm tubular fat-containing abnormality along the anterior aspect of the mid descending colon. This represents epiploic appendagitis which may be subacute. 4. Minimal infiltration/irregularity of the bladder wall which could be correlated with urinalysis. Impression Assessment and Plan PROBABLE UTI UA + nitrite, large leuk esterase, WBC >30, bacteria 4+ Afebrile; + leukocytosis (WBC 14k); HR and BP stable Rocephin given in ER Continue empiric Rocephin Urine culture pending No prior cultures available OLIGURIA/ HESITANCY/ HX OF BPH Possible urinary retention CT a/p noted above Bladder scan QS; straight cath PRN Hold Detrol Start Flomax Consult urology- [facility] HYPERTENSION BP is stable Continue lisinopril and metoprolol PARKINSON'S DISEASE Continue Sinemet GERD Continue PPI DVT PROPHYLAXIS Lovenox SQ FULL CODE DISPOSITION Lives with who is his peoplesoft developer Follows with Dr. Miguel Angel Curran for primary care Patient seen in collaboration with Dr. Villanueva. Please see his addendum. VTE Prophylaxis VTE Risk Assessment Done? Y/N: Yes Risk Level: Moderate
[2016-12-08 16:38] LABS: INR 1.1 (0.9-1.1); PARTIAL THROMBOPLASTIN RATIO 1.2; PROTHROMBIN TIME (PATIENT) 11.3 SECONDS (9.0-12.0)
[2016-12-08 17:26] VITALS: BP 133/82; PULSE 73; TEMP 37.8; O2SAT 94; Ht 172.7 cm; Wt 96.0 kg
[2016-12-08] MEDS: SODIUM CHLORIDE 0.9% 1000ML 1,000 ML IV SCH (18:25)
[2016-12-08] MEDS: ROPINIROLE HCL 1 MG TAB PO SCH (18:26)
[2016-12-08] MEDS: CARBIDOPA/LEVODOPA 25/100MG TAB PO SCH (18:28)
[2016-12-08] MEDS: CLONAZEPAM 0.5 MG TAB PO SCH (21:29)
[2016-12-08] MEDS: TAMSULOSIN HCL 0.4 MG CAP PO SCH (21:29)
[2016-12-08] MEDS: METOPROLOL TARTRATE 25 MG TAB PO SCH (21:30)
[2016-12-08] MEDS: OMEGA-3 (PURIFIED FISH OIL) 1 GM CAP PO SCH (21:30)
[2016-12-08] MEDS: CARBIDOPA/LEVODOPA 25/100MG EXT REL TAB PO SCH (21:31)
[2016-12-08] MEDS: ENOXAPARIN 40 MG/0.4 ML SYR SQ SCH (21:32)
[2016-12-08 23:43] VITALS: BP 107/67; PULSE 62; TEMP 37; O2SAT 93
[2016-12-09] MEDS: SODIUM CHLORIDE 0.9% 1000ML 1,000 ML IV SCH (01:33)
[2016-12-09] MEDS: CARBIDOPA/LEVODOPA 25/100MG TAB PO SCH ×5 (05:26→16:49)
[2016-12-09] MEDS: ROPINIROLE HCL 1 MG TAB PO SCH ×4 (05:26→16:50)
[2016-12-09 07:11] VITALS: BP 118/74; PULSE 71; TEMP 36.5; O2SAT 94
[2016-12-09] MEDS: METOPROLOL TARTRATE 25 MG TAB PO SCH ×2 (08:57→20:46)
[2016-12-09] MEDS: NIACIN 500 MG TAB IMMEDIATE RELEASE PO SCH (08:57)
[2016-12-09] MEDS: OMEGA-3 (PURIFIED FISH OIL) 1 GM CAP PO SCH ×2 (08:57→20:46)
[2016-12-09] MEDS: PANTOprazole SOD 40 MG TAB PO SCH (08:59)
[2016-12-09] MEDS: CYANOCOBALAMIN 500 MCG TAB (VIT B-12) PO SCH (08:59)
[2016-12-09] MEDS: METRONIDAZOLE 0.75% TOPICAL GEL 45 GM TUBE TOP SCH (09:00)
[2016-12-09] MEDS: LISINOPRIL 10 MG TAB PO SCH (09:33)
[2016-12-09] MEDS: CEFTRIAXONE SOD INJ 1 GM in DEXTROSE 5% ADD-VANTAGE 50ML 50 ML IV SCH (13:29)
--- NOTE | 2016-12-09 13:56 | Urology Consultation ---
History General Date of Service: Dec 09, 2016. Chief Complaint: UTI Primary Care Physician: Miguel Angel Curran D.O. Pt seen a urologist before?: Yes (Dr. Arthur) History of Present Illness 66 yo male presents today presents to [facility] with c/o "dark urine" and difficulty urinating. consulted for this issue. The pt denies hx of UTI in the past. He has seen Dr. Arthur in the past for what sounds like BPH, but I do not have these records to review. Denies dysuria or gross hematuria. Denies baseline weak stream or hesitancy. + occasional urgency. Preliminary UC&S is growing e coli. He is currently on ceftriaxone. Last PVR noted to be 45ml. He has been started on Flomax. The pt reports a family hx of prostate cancer. Denies a recent PSA. He also reports a hx of nephrolithiasis. CT scan showing punctate left renal calculi. No ureteral stones or hydro seen. Also noted to have a large 9.8cm left renal cyst in addition to a small bladder diverticulum and bladder stone. Imaging Imaging: CT Laboratory Labs are available in the chart and at [facility] Problem List Medical Problems: (1) Anterior shoulder dislocation Status: Acute (2) Dehydration Status: Acute (3) Frequent falls Status: Acute (4) Hill Sachs deformity Status: Acute (5) Nausea, vomiting, and diarrhea Status: Acute (6) Urinary retention Status: Acute (7) UTI (urinary tract infection) Status: Acute Past History BPH, GERD, high cholesterol, hypertension, kidney stones, other (iron deficiency , anemia, OAB, Parkinson's Disease, venous insufficiency) Past Surgical History: tonsillectomy, other (inguinal hernia repair, deep brain stimulator placement) Family History Diabetes mellitus MOTHER FH: asthma FATHER FH: prostate cancer FATHER Hypertension FATHER SISTER Kidney disease Kidney stones Social History Hx Tobacco Use In Past Year?: No Smoking: other (former sloker as a teenager) Marital status: Housing status: lives with significant other ( is his caretakers. has been able to care for him without issues.) Occupation status: disabled History of MDRO No Allergies Coded Allergies: Sulindac (Unverified Adverse Reaction, Intermediate, STOMACH IRRATION, ) Medications Home Medications: Home Meds and Scripts Medications Dose Route/Sig Max Daily Dose Days Date Category Dose Instructions Metrogel (Metronidazole (Topical)) 0.75 % Gel 1 Appln EXT DAILY 12/08/16 Reported 1 application to face daily Detrol LA (Tolterodine Tartrate) 4 Mg Capcr 4 Mg PO HS 90 08/23/16 Reported Prilosec (Omeprazole) 20 Mg Capcr 20 Mg PO DAILY 08/23/16 Reported Zestril (Lisinopril) 10 Mg Tab 10 Mg PO DAILY 06/27/16 Reported Requip (Ropinirole HCl) 4 Mg Tab 4 Mg PO QID 06/27/16 Reported Ropinirole Er (Ropinirole Hydrochloride) 4 Mg Tab 12 Mg PO HS 06/27/16 Reported Lopressor (Metoprolol Tartrate) 25 Mg Tab 25 Mg PO BID 90 04/14/15 Reported Vitamin B-12 1000 Mcg (Cyanocobalamin) 1,000 Mcg Tab 1,000 Mcg PO DAILY 08/19/12 Reported Niacin 500 Mg Tab 500 Mg PO DAILY 08/19/12 Reported [place]-3 (Fish Oil) Oil 1 Cap PO BID 08/19/12 Reported Sinemet Cr 25MG/100MG (Carbidopa/Levodopa) 1 Ea Tabcr 1 Tab PO HS 08/19/12 Reported Sinemet 25MG/100MG (Carbidopa/Levodopa) 1 Ea Tab 1.5 Tabs PO 6XD 08/19/12 Reported Klonopin (Clonazepam) 0.5 Mg Tab 1 Mg PO HS 08/19/12 Reported Inpatient Medications: Current Inpatient Medications Medications (Trade) Dose Ordered Sig/Luz Route Start Time Stop Time Status Last Admin Dose Admin Enoxaparin Sodium (Lovenox Inj) 40 mg QPM SQ 12/08/16 21:00 01/07/17 15:44 12/08/16 21:32 40 MG Acetaminophen (Tylenol Tab) 650 mg Q4H PRN PO 12/08/16 15:45 01/07/17 15:44 Ondansetron HCl (Zofran Inj) 4 mg Q6H PRN IV 12/08/16 15:45 01/07/17 15:44 Miscellaneous 1 ea 1 ea PRN PRN N/A 12/08/16 16:00 12/08/17 15:59 Ceftriaxone Sodium/Dextrose (Rocephin Inj/ Dextrose Add-[place] 50ML) 50 ml @ 100 mls/hr Q24H IV 12/09/16 14:00 12/17/16 14:29 Clonazepam (Klonopin Tab) 1 mg HS PO 12/08/16 21:00 01/07/17 20:59 12/08/16 21:29 1 MG Cyanocobalamin (Vitamin B-12 Tab) 1,000 mcg DAILY PO 12/09/16 09:00 01/08/17 08:59 12/09/16 08:59 1,000 MCG Fish Oil ([place]-3 (Purified Fish Oil) Cap) 1 gm BID PO 12/08/16 21:00 01/07/17 20:59 12/09/16 08:57 1 GM Carbidopa/Levodopa (Sinemet Cr 25/ 100MG Tab) 1 tab HS PO 12/08/16 21:00 01/07/17 20:59 12/08/16 21:31 1 TAB Lisinopril (Zestril Tab) 10 mg DAILY PO 12/09/16 09:00 01/08/17 08:59 12/09/16 09:33 10 MG Metoprolol Tartrate (Lopressor Tab) 25 mg BID PO 12/08/16 21:00 01/07/17 20:59 12/09/16 08:57 25 MG Metronidazole HCl (Metrogel Topical Gel) 1 appln DAILY TOP 12/09/16 09:00 12/19/16 08:59 12/09/16 09:00 1 APPLN Niacin (Niacin Tab) 500 mg DAILY PO 12/09/16 09:00 01/08/17 08:59 12/09/16 08:57 500 MG Ropinirole HCl (Requip Tab) 4 mg QID@0500,0900,1300,1700 PO 12/08/16 18:00 01/07/17 17:59 12/09/16 08:58 4 MG Miscellaneous Information (Order Awaiting Action) 1 ea QS N/A 12/08/16 18:00 01/07/17 17:59 Pantoprazole Sodium (Protonix Tab) 40 mg QAM PO 12/09/16 09:00 01/08/17 08:59 12/09/16 08:59 40 MG Tamsulosin HCl (Flomax Cap) 0.4 mg HS PO 12/08/16 21:00 01/07/17 20:59 12/08/16 21:29 0.4 MG Carbidopa/Levodopa (Sinemet 25/ 100MG Tab) 1.5 tab 0500,0800,1100,1400,1700 PO 12/08/16 18:00 01/07/17 17:59 12/09/16 11:29 1.5 TAB Review of Systems Review of Systems Constitutional: No chills, No fever Eyes: No double vision Neurological: No dizzy Endocrine: No excessive thirst Gastrointestinal: No abdominal pain, No nausea, No vomiting Cardiovascular: No chest pain Respiratory: No shortness of breath Skin: No rash Musculoskeletal: + arthritis Male : No blood in urine, No painful urination Physical Exam Vital Signs: Vital Signs Past 12 Hours Date Time Temp Pulse Resp B/P Pulse Ox O2 Delivery O2 Flow Rate FiO2 12/09/16 07:45 Room Air 12/09/16 07:11 36.5 71 16 118/74 94 Room Air Physical Exam: General Appearance: no apparent distress Eyes: bilateral eyes normal inspection ENT: hearing grossly normal Neck: no JVD Respiratory/Chest: no respiratory distress, no accessory muscle use Cardiovascular: no JVD Extremities: normal inspection Neurologic/Psychiatric: alert, normal mood/affect, oriented x 3 Skin: normal color ( ) Assessment & Plan Assessment & Plan A/P: UTI, incomplete bladder emptying, bladder diverticulum, bladder calculus, nephrolithiasis, left renal cyst 1. UTI Continue ceftriaxone pending culture sensitivities. Would then consider treating the pt for possible prostatitis with 4 weeks of Bactrim DS or Cipro if sensitive. 2. Incomplete bladder emptying Continue Flomax. Continue to check PVRs qshift. Place mathews catheter for PVR >250ml. Will also check a PSA. 3. Nephrolithiasis Punctate stones on CT. Will observe for now. 3. Bladder calculus and bladder diverticulum Recommend outpatient cysto for further evaluation. 4. Left renal cyst Lesion appears most consistent with a cyst on CT. Consider a renal u/s or repeat CT in 6-12 months to check for stability. Thanks for the consult. Will continue to follow along with primary service at this time.
[2016-12-09 15:04] VITALS: BP 155/74; PULSE 72; TEMP 38.3; O2SAT 95
[2016-12-09 15:15] VITALS: BP 136/61; PULSE 78; TEMP 37.1; O2SAT 96
[2016-12-09 17:49] VITALS: BP 150/78; TEMP 37.3
--- NOTE | 2016-12-09 18:28 | Progress Note ---
Internal Med Progress Note Date of Service: Dec 09, 2016. Provider Documentation: SUBJECTIVE: denies any abdominal pain or pain while micturating afebrile eating ok no sob or cough wants to go home' OBJECTIVE: Vital Signs-as noted below Exam: General-alert and oriented Not in distress ENT-normal hearing Neck-no neck masses Lungs-cta b/l no wheezing no crackles Heart-s1 and s2 heard regular rate and rhythm no murmurs' Abdomen-soft bowel sounds present non tender no distension Extremities-no edema no erythema Neuro-alert and awake moves extremities Lab data as noted below. ASSESSMENT & PLAN: PROBABLE UTI e.coli await final cx' on Rocephin will continue opal OLIGURIA/ HESITANCY/ HX OF BPH Possible urinary retention CT a/p epiploic appendagitis and possible cystitis Bladder scan QS and straight cath PRN Holding Detrol Started Flomax Consulted urology- patient requests [facility] u[facility] HYPERTENSION BP is stable Continue lisinopril and metoprolol PARKINSON'S DISEASE Continue Sinemet GERD Continue PPI DVT PROPHYLAXIS Lovenox SQ FULL CODE DVT PROPHYLAXIS Lovenox DISPOSITION to be determined Vital Signs: Date Time Temp Pulse Resp B/P Pulse Ox O2 Delivery O2 Flow Rate FiO2 12/09/16 17:49 37.3 150/78 12/09/16 15:30 Room Air 12/09/16 15:04 38.3 72 18 155/74 95 Room Air 12/09/16 07:45 Room Air 12/09/16 07:11 36.5 71 16 118/74 94 Room Air 12/08/16 23:55 Room Air 12/08/16 23:43 37.0 62 16 107/67 93 Room Air Lab Results: Results Past 24 Hours Test 12/09/16 13:07 Range/Units Prostate Specific Antigen 18.200 0.000-4.000 ng/ml
[2016-12-09] MEDS: CLONAZEPAM 0.5 MG TAB PO SCH (20:43)
[2016-12-09] MEDS: CARBIDOPA/LEVODOPA 25/100MG EXT REL TAB PO SCH (20:44)
[2016-12-09] MEDS: ENOXAPARIN 40 MG/0.4 ML SYR SQ SCH (20:45)
[2016-12-09] MEDS: TAMSULOSIN HCL 0.4 MG CAP PO SCH (20:45)
[2016-12-09] MEDS ORDERED: ROPINIROLE HCL 12 MG PO SCH (21:00)
[2016-12-09 23:25] VITALS: BP 129/74; PULSE 73; TEMP 37.2; O2SAT 96
[2016-12-10] MEDS: ROPINIROLE HCL 1 MG TAB PO SCH ×3 (05:12→13:25)
[2016-12-10] MEDS: CARBIDOPA/LEVODOPA 25/100MG TAB PO SCH ×4 (05:12→13:25)
[2016-12-10 06:52] LABS: BASO % 0.2 %; BASO ABS # 0.01 K/uL (0-0.2); COMPLETE YES; EOS % 2.4 %; IG% 0.3 %; LYMPH % 13.1 %; LYMPH ABS # 0.87 K/uL (1.2-3.4); MEAN CELL VOLUME 82.9 fL (80-100); MEAN CORPUSCULAR HEMOGLOBIN 26.3 pg (25-34); MEAN CORPUSCULAR HGB CONC 31.8 g/dl (32-36); MEAN PLATELET VOLUME 10.2 fL (7.4-10.4); MONO % 16.8 %; NEUT % 67.2 %; PLATELET COUNT 244 K/uL (130-400); WHITE BLOOD COUNT 6.65 K/uL (4.8-10.8)
[2016-12-10 07:36] LABS: BUN/CREATININE RATIO 9.1 (10-20); CALCIUM 8.2 mg/dl (8.5-10.1); CREATININE 0.86 mg/dl (0.60-1.40); MAGNESIUM 2.2 mg/dl (1.8-2.4); POTASSIUM 3.6 mmol/L (3.5-5.1)
[2016-12-10 07:43] VITALS: BP 152/84; PULSE 68; TEMP 36.6; O2SAT 94
[2016-12-10] MEDS: LISINOPRIL 10 MG TAB PO SCH (08:36)
[2016-12-10] MEDS: PANTOprazole SOD 40 MG TAB PO SCH (08:36)
[2016-12-10] MEDS: CYANOCOBALAMIN 500 MCG TAB (VIT B-12) PO SCH (08:37)
[2016-12-10] MEDS: NIACIN 500 MG TAB IMMEDIATE RELEASE PO SCH (08:37)
[2016-12-10] MEDS: OMEGA-3 (PURIFIED FISH OIL) 1 GM CAP PO SCH (08:37)
[2016-12-10] MEDS: METOPROLOL TARTRATE 25 MG TAB PO SCH (08:37)
[2016-12-10] MEDS: METRONIDAZOLE 0.75% TOPICAL GEL 45 GM TUBE TOP SCH (08:38)
[2016-12-10 08:45] VITALS: O2SAT 94
--- NOTE | 2016-12-10 09:07 | Progress Note ---
Subjective Date of Service: Dec 10, 2016. (Marija Rodrigues CRNP) Subjective Pt evaluation today including: conversation w/ patient, chart review, lab review Voiding: no voiding problems 66 year old male admitted with UTI sepsis. Reviewed records - pt did have fever yesterday around 1500. Afebrile since then. Ecoli UTI receiving IV ceftriaxone. preliminary sensitivities - ricketts sensitive PSA was 18.02- could be elevated due to prostatitis. He has been voiding on his own with PVR 45 ml White count has normalized. Creatinine normal. Pt reports he is felling well. Vivian his fever broke and he is doing much better. Denies bothersome urinary symptoms. (Marija Rodrigues CRNP) Problem List Medical Problems: (1) Anterior shoulder dislocation Status: Acute (2) Dehydration Status: Acute (3) Frequent falls Status: Acute (4) Hill Sachs deformity Status: Acute (5) Nausea, vomiting, and diarrhea Status: Acute (6) Urinary retention Status: Acute (7) UTI (urinary tract infection) Status: Acute (Marija Rodrigues CRNP) Review of Systems Constitutional: No chills, No fever Eyes: No worsening of vision ENT: No hearing loss Respiratory: + shortness of breath (normal for pt), No cough Cardiac: No chest pain Abdomen: No constipation, No nausea, No pain Male : + see HPI, No dysuria, No hematuria, No incontinence, No urinary frequency Psychiatric: No depression symptoms Heme: No abnormal bleeding/bruising Endo: No fatigue (Marija Rodrigues CRNP) Objective Vital Signs Date Time Temp Pulse Resp B/P Pulse Ox O2 Delivery O2 Flow Rate FiO2 12/10/16 08:45 94 Room Air 12/10/16 07:43 36.6 68 31 152/84 94 Room Air 12/09/16 23:25 37.2 73 17 129/74 96 Room Air 12/09/16 23:20 Room Air 12/09/16 17:49 37.3 150/78 12/09/16 15:30 Room Air 12/09/16 15:04 38.3 72 18 155/74 95 Room Air (Marija Rodrigues CRNP) Physical Exam General Appearance: WD/WN, no apparent distress ENT: hearing grossly normal Respiratory/Chest: no respiratory distress, no accessory muscle use Abdomen: soft Neurologic/Psychiatric: alert, normal mood/affect, oriented x 3 Skin: normal color, warm/dry, no rash (Marija Rodrigues CRNP) Laboratory Results Last 24 Hours Test 12/09/16 13:07 12/10/16 06:08 Prostate Specific Antigen 18.200 ng/ml White Blood Count 6.65 K/uL Red Blood Count 4.10 M/uL Hemoglobin 10.8 g/dL Hematocrit 34.0 % Mean Corpuscular Volume 82.9 fL Mean Corpuscular Hemoglobin 26.3 pg Mean Corpuscular Hemoglobin Concent 31.8 g/dl Platelet Count 244 K/uL Mean Platelet Volume 10.2 fL Neutrophils (%) (Auto) 67.2 % Lymphocytes (%) (Auto) 13.1 % Monocytes (%) (Auto) 16.8 % Eosinophils (%) (Auto) 2.4 % Basophils (%) (Auto) 0.2 % Neutrophils # (Auto) 4.47 K/uL Lymphocytes # (Auto) 0.87 K/uL Monocytes # (Auto) 1.12 K/uL Eosinophils # (Auto) 0.16 K/uL Basophils # (Auto) 0.01 K/uL RDW Standard Deviation 49.9 fL RDW Coefficient of Variation 16.4 % Immature Granulocyte % (Auto) 0.3 % Immature Granulocyte # (Auto) 0.02 K/uL Sodium Level 140 mmol/L Potassium Level 3.6 mmol/L Chloride Level 103 mmol/L Carbon Dioxide Level 30 mmol/L Anion Gap 7.0 mmol/L Blood Urea Nitrogen 8 mg/dl Creatinine 0.86 mg/dl Est Creatinine Clear Calc Drug Dose 97.5 ml/min Estimated GFR () 106.2 Estimated GFR (Non- 91.6 BUN/Creatinine Ratio 9.1 Random Glucose 115 mg/dl Calcium Level 8.2 mg/dl Magnesium Level 2.2 mg/dl (Marija Rodrigues CRNP) Assessment and Plan 1. UTI Continue IV ceftriaxone until afebrile for 24 hours. Recommend treating the pt for possible prostatitis with 4 weeks of Bactrim DS or Cipro if sensitive. PSA of 18- will recheck in 2 months. Continue flomax as outpt. PVRs have been fine. No need for mathews. 2. Nephrolithiasis Punctate stones on CT. No acute treatment needed. Will follow up as outpt. 3. Bladder calculus and bladder diverticulum Recommend outpatient cysto for further evaluation. Our office to call and schedule. 4.. Left renal cyst Lesion appears most consistent with a cyst on CT. Consider a renal u/s or repeat CT in 6-12 months to check for stability. (Marija Rodrigues, EVANS) elevated psa suggests acute prostatitis and pt will need fu after 4 weeks of antibiotics with repeat psa (Jeronimo Hernandez M.D.)
[2016-12-10] MEDS ORDERED: CIPROFLOXACIN 500 MG TAB PO STA (12:41)
[2016-12-10] MEDS: CEFTRIAXONE SOD INJ 1 GM in DEXTROSE 5% ADD-VANTAGE 50ML 50 ML IV SCH (13:25)
[2016-12-10] MEDS ORDERED: FLM4 PO ×2 (14:24→14:25)
[2016-12-10] MEDS ORDERED: CPR500 PO ×2 (14:24→14:25)
[2016-12-10] MEDS ORDERED: LCTX PO ×2 (14:24→14:25)
--- NOTE | 2016-12-10 14:29 | Discharge Instructions ---
Discharge Instructions Date of Service Dec 10, 2016. Admission Reason for Admission: Urinary Retention, Uti Discharge Discharge Diagnosis / Problem: UTI, URINARY RETENTION Discharge Goals Goal(s): Decrease discomfort, Improve function Activity Recommendations Activity Limitations: resume your previous activity . Instructions / Follow-Up Instructions / Follow-Up FOLLOWUP WITH FAMILY DOCTOR Miguel Angel Sykes ON December AT 1:10PM FOLLOWUP WITH UROLOGY IN 2-3 WEEKS FOR PROSTATITIS AND BLADDER STONE AND DIVERTICULUM AND ELEVATED PSA REPEAT CT ABDOMEN/PELVIS OR RENAL ULTRASOUND IN 6-12 MONTHS FOR LEFT RENAL CYST Current Hospital Diet Patient's current hospital diet: AHA Diet (Heart Healthy) Discharge Diet Recommended Diet: AHA Diet (Heart Healthy) Pending Studies Studies pending at discharge: no Medical Emergencies . Who to Call and When: Medical Emergencies: If at any time you feel your situation is an emergency, please call 911 immediately. . Non-Emergent Contact Non-Emergency issues call your: Primary Care Provider . . "Provider Documentation" section prepared by Curry Wynn. VTE Core Measure Inpt VTE Proph given/why not?: Enoxaparin (Lovenox)SQ
[2016-12-10 14:53] VITALS: BP 131/73; PULSE 97; TEMP 37.2; O2SAT 93
--- NOTE | 2016-12-10 18:47 | Progress Note ---
Internal Med Progress Note Date of Service: Dec 10, 2016. Provider Documentation: SUBJECTIVE: resting comfortably afebrile eating fine no nausea or abdominal pain wants to go home. OBJECTIVE: Vital Signs-as noted below Exam: General-alert and oriented Not in distress ENT-normal hearing Neck-no neck masses Lungs-cta b/l no wheezing no crackles Heart-s1 and s2 heard regular rate and rhythm no murmurs' Abdomen-soft bowel sounds present non tender no distension Extremities-no edema no erythema Neuro-alert and awake moves extremities Lab data as noted below. ASSESSMENT & PLAN: PROBABLE UTI Prostatitis e.coli await final cx' on Rocephin ricketts sensitive e.coli discharged on 4 weeks of cipr per urology recommendation psa 18. elevated mostly from prostatitis and urology plans to repeat it later OLIGURIA/ HESITANCY/ HX OF BPH Possible urinary retention CT a/p epiploic appendagitis and possible cystitis Bladder scan QS and straight cath PRN Holding Detrol Started Flomax Consulted urology- patient requests [facility] [place] urology urology to follow up as out patient Left kidney cyst needs to followup with ct abd/pelvis or renal ultrasound in 6-12 months HYPERTENSION BP is stable Continue lisinopril and metoprolol PARKINSON'S DISEASE Continue Sinemet GERD Continue PPI Discharged home Vital Signs: Date Time Temp Pulse Resp B/P Pulse Ox O2 Delivery O2 Flow Rate FiO2 12/10/16 14:53 37.2 97 18 131/73 93 Room Air 12/10/16 14:37 36.6 68 31 94 Room Air 12/10/16 08:45 94 Room Air 12/10/16 07:45 Room Air 12/10/16 07:43 36.6 68 31 152/84 94 Room Air 12/09/16 23:25 37.2 73 17 129/74 96 Room Air 12/09/16 23:20 Room Air Lab Results: Results Past 24 Hours Test 12/10/16 06:08 Range/Units White Blood Count 6.65 4.8-10.8 K/uL Red Blood Count 4.10 4.7-6.1 M/uL Hemoglobin 10.8 14.0-18.0 g/dL Hematocrit 34.0 42-52 % Mean Corpuscular Volume 82.9 80-100 fL Mean Corpuscular Hemoglobin 26.3 25-34 pg Mean Corpuscular Hemoglobin Concent 31.8 32-36 g/dl Platelet Count 244 130-400 K/uL Mean Platelet Volume 10.2 7.4-10.4 fL Neutrophils (%) (Auto) 67.2 % Lymphocytes (%) (Auto) 13.1 % Monocytes (%) (Auto) 16.8 % Eosinophils (%) (Auto) 2.4 % Basophils (%) (Auto) 0.2 % Neutrophils # (Auto) 4.47 1.4-6.5 K/uL Lymphocytes # (Auto) 0.87 1.2-3.4 K/uL Monocytes # (Auto) 1.12 0.11-0.59 K/uL Eosinophils # (Auto) 0.16 0-0.5 K/uL Basophils # (Auto) 0.01 0-0.2 K/uL RDW Standard Deviation 49.9 36.4-46.3 fL RDW Coefficient of Variation 16.4 11.5-14.5 % Immature Granulocyte % (Auto) 0.3 % Immature Granulocyte # (Auto) 0.02 0.00-0.02 K/uL Sodium Level 140 136-145 mmol/L Potassium Level 3.6 3.5-5.1 mmol/L Chloride Level 103 98-107 mmol/L Carbon Dioxide Level 30 21-32 mmol/L Anion Gap 7.0 3-11 mmol/L Blood Urea Nitrogen 8 7-18 mg/dl Creatinine 0.86 0.60-1.40 mg/dl Est Creatinine Clear Calc Drug Dose 97.5 ml/min Estimated GFR () 106.2 Estimated GFR (Non- 91.6 BUN/Creatinine Ratio 9.1 10-20 Random Glucose 115 70-99 mg/dl Calcium Level 8.2 8.5-10.1 mg/dl Magnesium Level 2.2 1.8-2.4 mg/dl
--- NOTE | 2016-12-10 19:32 | Discharge Summary ---
Discharge Summary Date of Service Dec 10, 2016. Discharge Summary Admission Date: Dec 09, 2016 at 15:56 Discharge Date: Dec 10, 2016 Discharge Disposition: Home Principal Diagnosis: UTI PROSTATITIS URINARY RETENTION Secondary Diagnoses/Problems: (1) BPH (benign prostatic hypertrophy) Status: Chronic (2) Dyslipidemia Status: Chronic (3) GERD (gastroesophageal reflux disease) Status: Chronic (4) History of kidney stones Status: Chronic (5) HTN (hypertension) Status: Chronic (6) Iron deficiency anemia Status: Chronic (7) Overactive bladder Status: Chronic (8) Parkinson disease Status: Chronic (9) Venous insufficiency Status: Chronic Procedures: CT ABD/PELVIS: 1. Punctate left renal calculi. No ureteral calculi or hydronephrosis. 2 mm bladder calculus. 2. 9.8 cm water attenuation left renal lesion. Although suboptimally assessed on this unenhanced exam, this likely reflects a cyst. 3. 3 cm x 1.7 cm tubular fat-containing abnormality along the anterior aspect of the mid descending colon. This represents epiploic appendagitis which may be subacute. 4. Minimal infiltration/irregularity of the bladder wall which could be correlated with urinalysis. Consultations: UROLOGY Medication Reconciliation New Medications: Lactobacillus Acidophilus (Lactinex) Tab 1 TAB PO BID, #60 TAB Ciprofloxacin (Ciprofloxacin HCl) 500 Mg Tab 500 MG PO BID for 30 Days, #60 TAB Tamsulosin HCl (Tamsulosin HCl) 0.4 Mg Cap 0.4 MG PO HS for 30 Days, #30 CAP 1 Refill Continued Medications: Clonazepam (Klonopin) 0.5 Mg Tab 1 MG PO HS, TAB Cyanocobalamin (Vitamin B-12 1000 Mcg) 1,000 Mcg Tab 1000 MCG PO DAILY, TAB Fish Oil ([place]-3) Oil 1 CAP PO BID, CAP Levodopa/Carbidopa (Sinemet 25MG/100MG) 1 Ea Tab 1.5 TABS PO 6XD, TAB Levodopa/Carbidopa (Sinemet Cr 25MG/100MG) 1 Ea Tabcr 1 TAB PO HS, TAB Lisinopril (Zestril) 10 Mg Tab 10 MG PO DAILY, TAB Metoprolol Tartrate (Lopressor) (Lopressor) 25 Mg Tab 25 MG PO BID for 90 Days, #180 TAB 1 Refill Metronidazole (Topical) (Metrogel) 0.75 % Gel 1 APPLN EXT DAILY 1 application to face daily Niacin (Niacin) 500 Mg Tab 500 MG PO DAILY, TAB Omeprazole (Prilosec) 20 Mg Capcr 20 MG PO DAILY, CAP Ropinirole (Requip) 4 Mg Tab 4 MG PO QID, TAB Ropinirole Hydrochloride (Ropinirole Er) 4 Mg Tab 12 MG PO HS Tolterodine Tartrate (Detrol LA) 4 Mg Capcr 4 MG PO HS for 90 Days, CAP 3 Refills Admission Information HPI (per Admitting provider): This is a 66 year old male with PMH of Parkinson's disease, HTN, venous insufficiency, history of overactive bladder, BPH, and other problems listed below who presents to the ED with oliguria starting yesterday. Patient reports baseline hesitancy and nocturia every hour while wearing compression devices for lymphedema. Then since yesterday is producing minimal urine. Has produced total of 4 oz since yesterday. Has associated dysuria, urgency, darkened urine. He refused catheterization in the ER. No worsening of chronic SOB and chronic BLLE edema from baseline. Has chronic slurred speech unchanged from baseline. Patient is wheelchair bound since June when he dislocated his right shoulder and could no longer use a walker. Has appointment with [facility] for shoulder. Patient denies fever, chills, dizziness, weakness, confusion, cough, chest pain, abdominal pain, flank pain, decreased appetite, N/V, diarrhea, hematuria. Denies history of prior UTI. States prior kidney stone passed spontaneously. He takes Detrol for OAB. Not on any BPH medications. Has seen Dr. Arthur back in 2014. Physical Exam (per Admitting): General Appearance: WD/WN, no apparent distress, + pertinent finding ( pleasant alert 66 year old male, no distress) Head: normocephalic, atraumatic Eyes: normal inspection, PERRL, sclerae normal ENT: pharynx normal, + pertinent finding (hearing aids present) Neck: supple, trachea midline Respiratory/Chest: lungs clear, normal breath sounds, no respiratory distress, no accessory muscle use Cardiovascular: regular rate, rhythm, no murmur Abdomen/GI: normal bowel sounds, non tender, soft Back: no CVA tenderness Extremities/Musculoskelatal: no calf tenderness, + pedal edema (trace pretibial edema bilaterally), + pertinent finding (right upper extremity in sling) Neurologic/Psych: alert, normal mood/affect, oriented x 3, + pertinent finding (mildly slurred speech- at baseline per . no focal motor deficit.) Skin: normal color, warm/dry Hospital Course PROBABLE UTI Prostatitis e.coli await final cx' on Rocephin ricketts sensitive e.coli discharged on 4 weeks of cipr per urology recommendation psa 18. elevated mostly from prostatitis and urology plans to repeat it later OLIGURIA/ HESITANCY/ HX OF BPH Possible urinary retention CT a/p epiploic appendagitis and possible cystitis Bladder scan QS and straight cath PRN Holding Detrol Started Flomax Consulted urology- patient requests [facility] urology urology to follow up as out patient Left kidney cyst needs to followup with ct abd/pelvis or renal ultrasound in 6-12 months HYPERTENSION BP is stable Continue lisinopril and metoprolol PARKINSON'S DISEASE Continue Sinemet GERD Continue PPI Discharged home Total time spent on discharge = 35MINUTES This includes examination of the patient, discharge planning, medication reconciliation, and communication with other providers. Discharge Instructions Discharge Instructions Date of Service Dec 10, 2016. Admission Reason for Admission: Urinary Retention, Uti Discharge Discharge Diagnosis / Problem: UTI, URINARY RETENTION Discharge Goals Goal(s): Decrease discomfort, Improve function Activity Recommendations Activity Limitations: resume your previous activity . Instructions / Follow-Up Instructions / Follow-Up FOLLOWUP WITH FAMILY DOCTOR Miguel Angel Sykes ON December AT 1:10PM FOLLOWUP WITH UROLOGY IN 2-3 WEEKS FOR PROSTATITIS AND BLADDER STONE AND DIVERTICULUM AND ELEVATED PSA REPEAT CT ABDOMEN/PELVIS OR RENAL ULTRASOUND IN 6-12 MONTHS FOR LEFT RENAL CYST Current Hospital Diet Patient's current hospital diet: AHA Diet (Heart Healthy) Discharge Diet Recommended Diet: AHA Diet (Heart Healthy) Pending Studies Studies pending at discharge: no Medical Emergencies . Who to Call and When: Medical Emergencies: If at any time you feel your situation is an emergency, please call 911 immediately. . Non-Emergent Contact Non-Emergency issues call your: Primary Care Provider
[2016-12-10] MEDS ORDERED: CIPROFLOXACIN 500 MG TAB PO SCH (21:00)
[2017-03-21] MEDS ORDERED: CLCUDL PO (17:28)
[2017-03-21] MEDS ORDERED: VNCS250 PO (17:28)
[2017-03-21] MEDS ORDERED: OXYC10SO PO (17:28)
[2017-03-21] MEDS ORDERED: CLON0.5T3 PO (17:28)
[2017-03-21] MEDS ORDERED: MLXC PO (17:28)
[2017-03-21] MEDS ORDERED: SCOP1.5D2 TD (17:28)
[2017-03-21] MEDS ORDERED: LORA1TAB13 PO (17:28)
[2017-07-13] MEDS ORDERED: DXY100 PO (13:11)
[2017-07-13] MEDS ORDERED: PRD10 PO (13:11)
[2017-07-13] MEDS ORDERED: LCTX PO (13:11)
== END 2016-12-10 15:05 | disposition home or self-care (01) | DRG 690 ==
LOC: ENRESERVDT → ENRESERVTM → C.EDB 11:28 → C.MSW 15:40 → OBSVTOIN 12-09 15:56
PROVIDERS: ADMIT Internal Medicine; ATTEND Internal Medicine
DX: N39.0 Urinary tract infection, site not specified (principal); G20 Parkinson's disease; K21.9 Gastro-esophageal reflux disease without esophagitis; N20.0 Calculus of kidney; N40.1 Benign prostatic hyperplasia with lower urinary tract symptoms; B96.20 Unspecified Escherichia coli [E. coli] as the cause of diseases classified elsewhere; D72.829 Elevated white blood cell count, unspecified; D50.9 Iron deficiency anemia, unspecified; J44.9 Chronic obstructive pulmonary disease, unspecified; E78.5 Hyperlipidemia, unspecified; I10 Essential (primary) hypertension; R33.9 Retention of urine, unspecified; N28.1 Cyst of kidney, acquired; E78.00 Pure hypercholesterolemia, unspecified; R34 Anuria and oliguria; N32.81 Overactive bladder; I87.2 Venous insufficiency (chronic) (peripheral); N41.9 Inflammatory disease of prostate, unspecified; Z87.891 Personal history of nicotine dependence; Z99.3 Dependence on wheelchair; Z79.899 Other long term (current) drug therapy

== ENCOUNTER 2016-12-24 19:24 | Emergency (ER) | payer OTHER ==
[2016-12-24] VITALS (8 sets, daily range): BP systolic 130–177; BP diastolic 65–100; PULSE 71–84; TEMP 37.2; O2SAT 91–98
[~2016-12-24 19:24] MED LIST changes: -ACET-1256 PO; +CPR500 PO; -FERR1TAB13 PO; +FLM4 PO; +LCTX PO; +METR0.7527 EXT; -TAMS0.4C38 PO
--- NOTE | 2016-12-24 19:52 | EMERGENCY ROOM VISIT NOTE ---
History Report prepared by Oma: Fabricio Corbett Under the Supervision of: Dr. Alex Kulkarni D.O. First contact with patient: 19:46 Chief Complaint: SHOULDER PAIN Stated Complaint: DISLOCATED R SHOULDER History of Present Illness The patient is a 66 year old male who presents to the Emergency Room with complaints of constant right shoulder pain secondary to a shoulder dislocation that occurred just [employer]IST[employer]. He rates his pain a 10/10 in severity. The patient states he was standing up from the commode when his shoulder popped out of place. He has an extensive history of shoulder dislocations. Patient denies numbness, weakness, or any additional associated symptoms. Source of History: patient Onset: [employer] Position: shoulder (right) Symptom Intensity: 10/10 Timing: constant Modifying Factors (Relieving): other (None) Associated Symptoms: No numbness, No weakness Review of Systems See HPI for pertinent positives & negatives. A total of 10 systems reviewed and were otherwise negative. Past Medical & Surgical Medical Problems: (1) BPH (benign prostatic hypertrophy) (2) Dyslipidemia (3) GERD (gastroesophageal reflux disease) (4) History of kidney stones (5) HTN (hypertension) (6) Iron deficiency anemia (7) Overactive bladder (8) Parkinson disease (9) Venous insufficiency Surgical Problems: (1) H/O inguinal hernia repair (2) S/P deep brain stimulator placement (3) S/p tonsil surgery Family History Diabetes mellitus MOTHER FH: asthma FATHER FH: prostate cancer FATHER Hypertension FATHER SISTER Kidney disease Kidney stones Social History Smoking Status: Never Smoker Alcohol Use: none Drug Use: none Marital Status: Housing Status: lives with family Occupation Status: disabled Current/Historical Medications Scheduled Ciprofloxacin Hcl (Cipro), 500 MG PO BID Clonazepam (Klonopin), 1 MG PO HS Cyanocobalamin (Vitamin B-12 1000 Mcg), 1,000 MCG PO DAILY Fish Oil (Fish Oil), 1 GM PO DAILY Lactobacillus Acidophilus (Lactinex), 1 TAB PO BID Levodopa/Carbidopa (Sinemet 25MG/100MG), 1.5 TABS PO 6X DAILY Levodopa/Carbidopa (Sinemet Cr 25MG/100MG), 1 TAB PO HS Lisinopril (Zestril), 10 MG PO DAILY Metoprolol Tartrate (Lopressor) (Lopressor), 25 MG PO BID Metronidazole (Topical) (Metrogel), 1 APPLN EXT DAILY Niacin (Niacin), 500 MG PO DAILY Omeprazole (Prilosec), 20 MG PO DAILY Ropinirole (Requip), 4 MG PO QID Ropinirole Hydrochloride (Ropinirole Er), 12 MG PO HS Tamsulosin HCl (Tamsulosin HCl), 0.4 MG PO HS Allergies Coded Allergies: Sulindac (Verified Adverse Reaction, Intermediate, STOMACH IRRATION, ) Physical Exam Vital Signs Date Time Temp Pulse Resp B/P Pulse Ox O2 Delivery O2 Flow Rate FiO2 12/24/16 23:09 37.2 84 20 149/85 91 12/24/16 22:20 84 20 149/85 91 Room Air 12/24/16 22:15 160/76 12/24/16 22:10 83 24 157/82 91 12/24/16 22:05 147/81 12/24/16 22:00 163/85 12/24/16 21:55 163/92 12/24/16 21:50 161/89 12/24/16 21:45 158/85 12/24/16 21:40 79 22 157/86 89 12/24/16 21:35 162/84 12/24/16 21:30 163/89 12/24/16 21:25 172/83 12/24/16 21:25 79 20 172/83 94 Room Air 12/24/16 21:20 172/106 12/24/16 21:15 160/96 12/24/16 21:11 177/82 12/24/16 21:10 76 18 177/82 94 Room Air 12/24/16 21:10 76 91 12/24/16 21:05 75 20 130/77 93 Room Air 12/24/16 21:04 75 24 93 12/24/16 21:00 125/71 12/24/16 20:59 75 28 98 12/24/16 20:56 77 12/24/16 20:55 73 22 130/76 97 Nasal Cannula 2.0 12/24/16 20:55 130/76 12/24/16 20:54 73 25 97 12/24/16 20:52 72 20 138/75 97 Room Air 12/24/16 20:50 138/75 12/24/16 20:49 75 19 96 12/24/16 20:48 75 18 148/65 93 Nasal Cannula 4.0 12/24/16 20:47 148/65 12/24/16 20:44 79 22 95 12/24/16 20:43 74 20 157/74 95 Nasal Cannula 2.0 12/24/16 20:41 157/74 12/24/16 20:39 73 31 95 12/24/16 20:34 73 35 96 12/24/16 20:29 70 24 98 12/24/16 20:24 70 25 98 12/24/16 20:21 37.2 71 22 160/100 98 Room Air 12/24/16 20:20 160/100 12/24/16 19:44 36.6 67 20 168/95 95 Room Air Physical Exam GENERAL: Patient is awake and alert, but uncomfortable appearing. He appears to be experiencing moderate amount of pain. EYES: The conjunctivae are clear. The pupils are round and reactive. EARS, NOSE, MOUTH AND THROAT: The nose is without any evidence of any deformity. Mucous membranes are moist tongue is midline NECK: The neck is nontender and supple. RESPIRATORY: Normal respiratory effort is noted there is no evidence of wheezing rhonchi or rales CARDIOVASCULAR: Regular rate and rhythm noted there no murmurs rubs or gallops normal S1 normal S2 GASTROINTESTINAL: The abdomen is soft. Bowel sounds are present in all quadrants. Abdomen is nontender MUSCULOSKELETAL/EXTREMITIES: Right upper extremity held in internal rotation. Deltoid step off with anterior fullness noted, consisted with right shoulder dislocation. SKIN: Pedal edema noted bilaterally. There is no obvious evidence of any rash. There are no petechiae, pallor or cyanosis noted. NEUROLOGIC: Patient is awake alert and oriented x3. Appears at baseline per significant other. Medical Decision & Procedures ER Provider Diagnostic Interpretation: X-ray results as stated below per interpretation by me and the radiologist. RIGHT SHOULDER 3 VIEWS CLINICAL HISTORY: Postreduction examination. FINDINGS: 3 portable views of the right shoulder are compared to study dated 09/24/2016. The skeletal structures are osteopenic. There is a Hill-Sachs lesion identified in the humeral head, new from previous. No additional fracture is identified. Productive degenerative change is seen at the acromioclavicular joint. The glenohumeral articulation is in anatomic alignment. The overlying soft tissues are within normal limits. The visualized right lung parenchyma appears clear. IMPRESSION: 1. The glenohumeral articulation is in anatomic alignment. 2. There is a large Hill-Sachs lesion in the humeral head, new from 09/24/2016. 3. No additional acute fracture is identified. Electronically signed by: Jignesh Hernández M.D. 12/24/2016 9:34 PM Dictated Date/Time: 12/24/2016 9:32 PM Medications Administered Medications (Trade) Dose Ordered Sig/Luz Route Start Time Stop Time Status Last Admin Dose Admin Ondansetron HCl (Zofran Inj) 4 mg NOW STAT IV 12/24/16 20:05 12/24/16 20:07 DC 12/24/16 20:31 4 MG Morphine Sulfate 4 mg 4 mg Q15M PRN IV 12/24/16 20:15 12/24/16 23:22 DC 12/24/16 20:31 4 MG Sodium Chloride (Nss 1000ml) 1,000 ml @ 125 mls/hr Q8H STAT IV 12/24/16 20:05 12/24/16 23:22 DC 12/24/16 20:31 125 MLS/HR Propofol (Diprivan Iv Emulsion 20ml Vial) 200 mg STK-MED ONCE IV 12/24/16 20:31 12/24/16 20:32 DC 12/24/16 20:48 50 MG Procedure Procedural Sedation Indication Shoulder dislocation. Total time: 12 minutes. Written consent was obtained after the risks and benefits were explained to the patient and his , including, but not limited to aspiration, allergic reaction, breathing difficulties, cardiac complications, vomiting, pain, event recall, bleeding, and/or infection. Pre-sedation examination and paperwork completed. The patient was on 100% oxygen via NRB prior to the procedure. Continous end tidal CO2 monitoring, pulse oximetry, and cardiac monitoring were utilized. Suction, airway equipment, medications, respiratory equipment, and appropriate personnel were prepared prior to the initiation of the procedure. A time out was taken. Sedation was achieved utilizing 100 mg of Propofol. After I observed the patient had reached the appropriate level of sedation the main procedure was performed without complication. Sedation was discontinued and the monitoring continued. The patient recovered quickly from the effects of the medication without complication or adverse event. Anterior Shoulder Dislocation Reduction Indication: Right shoulder dislocation Verbal consent obtained. Risks and benefits were explained with the usual customary discussion. A time out was taken. Neurovascular examination before the procedure revealed symmetric pulses. The right shoulder glenohumeral dislocation was reduced by placing the patient prone and applying gentle downward inline traction on the humerus, with the elbow flexed at 90 degrees, while scapula manipulation was applied. This resulted in an easy reduction without complication. Neurovascular examination after the procedure revealed no change. The patient had significant pain relief and tolerated the procedure well. ED Course 1948: The patient was evaluated in room A9A. A complete history and physical examination were performed. 2005: Ordered Sodium Chloride 1,000 ml @ 125 mls/hr IV, Zofran Injection 4 mg IV. 2014: Ordered Propofol 1 dose IV, Morphine Sulfate 4 mg IV. 2039: I performed Procedural Sedation and Anterior Shoulder Dislocation Reduction procedures. Please see above procedure notes. 2100: Upon reevaluation, the patient is feeling much better. 2114: Upon reevaluation, the patient is resting more comfortably. I discussed the results and treatment plan with the patient and his . They verbalized agreement of the treatment plan. The patient was discharged home. Medical Decision Differential diagnosis: Etiologies such as fracture, dislocation, neurovascular compromise, compartment syndrome, soft tissue injury, as well as others were entertained. Nursing notes reviewed. Patient's previous electronic medical records reviewed. The patient is a 66-year-old male who presented to emergency department for evaluation of right shoulder pain. The patient had a history of physical exam consistent with an anterior right shoulder dislocation. Attempts are made to reduce the shoulder dislocation without sedation however the patient was able to tolerate this. For this reason he was given moderate sedation and using traction countertraction the shoulder was reduced without difficulty. Post reduction x-rays did reveal a significant Hill-Sachs deformity. The patient was placed in a shoulder immobilizer. He was encouraged to rest and avoid any strenuous activity. He was treated with IV pain medication IV fluids and IV antiemetics. On subsequent reevaluation he was feeling much better. He was encouraged to call his family to schedule a follow-up appointment as well as his primary orthopedic physician. Otherwise he was encouraged to return to the emergency department immediately if symptoms change worsen or the need arises. Impression Primary Impression: Anterior dislocation of right shoulder Scribe Attestation The scribe's documentation has been prepared under my direction and personally reviewed by me in its entirety. I confirm that the note above accurately reflects all work, treatment, procedures, and medical decision making performed by me. Departure Information Dispostion Home / Self-Care Referrals Miguel Angel Curran D.O. (PCP) Forms HOME CARE DOCUMENTATION FORM, IMPORTANT VISIT INFORMATION Patient Instructions [facility] Additional Instructions Continue to use your immobilizer as directed. Continue all medications as prescribed. Follow-up with your family DrIrasema as well as her primary orthopedic doctor soon as possible. I would recommend a clear liquid diet until morning. Problem Qualifiers Primary Impression: Anterior dislocation of right shoulder Encounter type: initial encounter Qualified Codes: S43.014A - Anterior dislocation of right humerus, initial encounter
[2016-12-24] MEDS ORDERED: SODIUM CHLORIDE 0.9% 1000ML 1,000 ML IV STA (20:05)
[2016-12-24] MEDS ORDERED: ONDANSETRON INJ 2 MG/ML 2 ML VIAL IV STA (20:05)
[2016-12-24] MEDS ORDERED: PROPOFOL IV EMULSION 10 MG/ML 100 ML VIAL IV PRN (20:15)
[2016-12-24] MEDS ORDERED: MoRPHine SULFATE 4 MG/ML 1 ML CARP\\VIAL IV PRN (20:15)
[2016-12-24] MEDS ORDERED: PROPOFOL IV EMULSION 10 MG/ML 20 ML VIAL IV ONE (20:31)
[2016-12-24] MEDS ORDERED: OMG3 PO (20:34)
[2016-12-24] MEDS ORDERED: FLM4 PO (20:34)
[2016-12-24] MEDS ORDERED: CIPR-255 PO (20:34)
[2016-12-24] MEDS ORDERED: LCTX PO (20:34)
--- NOTE | 2016-12-24 21:36 | DIAGNOSTIC IMAGING REPORT ---
RIGHT SHOULDER 3 VIEWS CLINICAL HISTORY: Postreduction examination. FINDINGS: 3 portable views of the right shoulder are compared to study dated 09/24/2016. The skeletal structures are osteopenic. There is a Hill-Sachs lesion identified in the humeral head, new from previous. No additional fracture is identified. Productive degenerative change is seen at the acromioclavicular joint. The glenohumeral articulation is in anatomic alignment. The overlying soft tissues are within normal limits. The visualized right lung parenchyma appears clear. IMPRESSION: 1. The glenohumeral articulation is in anatomic alignment. 2. There is a large Hill-Sachs lesion in the humeral head, new from 09/24/2016. 3. No additional acute fracture is identified. Electronically signed by: Jignesh Hernández M.D. 12/24/2016 9:34 PM Dictated Date/Time: 12/24/2016 9:32 PM
[2017-03-21] MEDS ORDERED: MLXC PO (17:28)
[2017-03-21] MEDS ORDERED: OXYC10SO PO (17:28)
[2017-03-21] MEDS ORDERED: CLON0.5T3 PO (17:28)
[2017-03-21] MEDS ORDERED: VNCS250 PO (17:28)
[2017-03-21] MEDS ORDERED: SCOP1.5D2 TD (17:28)
[2017-03-21] MEDS ORDERED: CLCUDL PO (17:28)
[2017-03-21] MEDS ORDERED: LORA1TAB13 PO (17:28)
[2017-07-13] MEDS ORDERED: DXY100 PO (13:11)
[2017-07-13] MEDS ORDERED: LCTX PO (13:11)
[2017-07-13] MEDS ORDERED: PRD10 PO (13:11)
== END 2016-12-24 23:11 | disposition home or self-care (01) ==
LOC: C.EDB 19:26 → C.EDA 23:11
DX: S43.014A Anterior dislocation of right humerus, initial encounter (principal); X58.XXXA Exposure to other specified factors, initial encounter; I10 Essential (primary) hypertension; E78.5 Hyperlipidemia, unspecified; K21.9 Gastro-esophageal reflux disease without esophagitis; N40.0 Benign prostatic hyperplasia without lower urinary tract symptoms; G20 Parkinson's disease; N32.81 Overactive bladder; Z87.442 Personal history of urinary calculi; Z98.890 Other specified postprocedural states; Z79.899 Other long term (current) drug therapy; Z88.8 Allergy status to other drugs, medicaments and biological substances; Z83.3 Family history of diabetes mellitus; Z82.49 Family history of ischemic heart disease and other diseases of the circulatory system; Z84.1 Family history of disorders of kidney and ureter; Z80.42 Family history of malignant neoplasm of prostate

== ENCOUNTER 2017-03-11 09:45 | Inpatient (IN) | payer OTHER ==
[~2017-03-11] VITALS: Ht 170.2 cm; Wt 93.3 kg
[~2017-03-11 09:45] MED LIST changes: +CIPR-255 PO; -CPR500 PO; -DTRSR4 PO; -FISHOIL PO; +OMG3 PO
--- NOTE | 2017-03-11 10:32 | EMERGENCY ROOM VISIT NOTE ---
History Report prepared by Oma: Ana Wilson Under the Supervision of: Dr. Derrick Hope M.D. First contact with patient: 10:09 Chief Complaint: HYPOTENSION Stated Complaint: LOW BLOOD PRESSURE History of Present Illness The patient is a 66 year old male who presents to the Emergency Room with complaints of constant hypotension beginning this morning. states that the patient's blood pressure was 73/28 and 80/46 at home today. The patient is complaining of feeling lightheaded. His notes that yesterday his blood pressure was elevated. He has been taking all of his medications as prescribed. The patient has been eating and drinking normally. He denies feeling short of breath. He has swelling in his legs that his states is chronic. The patient was at [facility] 6 days ago for urinary symptoms. He was started on an antibiotic for a suspected UTI at that time. He was called 4 days ago and told to discontinue the antibiotic because his urine cultures were negative. The patient denies any other recent changes to his medications. Source of History: patient Onset: this morning Position: other (global) Symptom Intensity: BP 73/28 Quality: other (hypotension) Timing: constant Associated Symptoms: No SOB Note: Pt notes lightheadedness. Review of Systems All systems have been listed, reviewed, and are negative other than those previously mentioned. Please see Additional Medical History Sheet. Past Medical & Surgical Medical Problems: (1) BPH (benign prostatic hypertrophy) (2) Dyslipidemia (3) GERD (gastroesophageal reflux disease) (4) History of kidney stones (5) HTN (hypertension) (6) Iron deficiency anemia (7) Overactive bladder (8) Parkinson disease (9) Venous insufficiency Surgical Problems: (1) H/O inguinal hernia repair (2) H/O shoulder surgery (3) S/P deep brain stimulator placement (4) S/p tonsil surgery Family History Diabetes mellitus MOTHER FH: asthma FATHER FH: prostate cancer FATHER Hypertension FATHER SISTER Kidney disease Kidney stones Social History Smoking Status: Former Smoker Alcohol Use: none Drug Use: none Marital Status: Housing Status: lives with family Occupation Status: disabled Current/Historical Medications Scheduled Carbidopa/Levodopa (Sinemet 25MG/100MG), 1.5 TAB PO 5XD Clonazepam (Klonopin), 1 MG PO HS Cyanocobalamin (Vitamin B-12 1000 Mcg), 1,000 MCG PO DAILY Fish Oil (Fish Oil), 1 GM PO DAILY Lactobacillus Acidophilus (Lactinex), 1 TAB PO BID Levodopa/Carbidopa (Sinemet Cr 25MG/100MG), 1 TAB PO HS Lisinopril (Zestril), 10 MG PO DAILY Metoprolol Tartrate (Lopressor) (Lopressor), 25 MG PO BID Niacin (Niacin), 500 MG PO DAILY Omeprazole (Prilosec), 20 MG PO DAILY Ropinirole (Requip), 4 MG PO QID Ropinirole Hydrochloride (Requip Xl), 12 MG PO HS Tamsulosin HCl (Tamsulosin HCl), 0.4 MG PO HS Allergies Coded Allergies: Sulindac (Verified Adverse Reaction, Intermediate, STOMACH IRRATION, ) Physical Exam Vital Signs Date Time Temp Pulse Resp B/P (MAP) Pulse Ox O2 Delivery O2 Flow Rate FiO2 03/11/17 11:45 77 24 146/95 94 Room Air 03/11/17 10:19 80 116/69 78 119/75 80 111/67 03/11/17 10:12 79 03/11/17 09:47 36.9 76 34 97/55 93 Room Air Physical Exam GENERAL: Patient awake, alert, oriented x 3, responsive. Speech is unclear due to some dysarthria. Patient follows commands. Patient does not appear toxic. Patient is adequately hydrated and well-nourished. SKIN: No erythema, pallor, cyanosis or rash HEENT: Normal head, pupils equal, reactive to light and accommodation. Oral cavity and posterior pharynx appear normal. Neck: Without adenopathy, no neck vein distention. LUNGS: Clear to auscultation. No wheezes, no rales, no rhonchi. HEART: No murmurs. No gallops. No rubs ABDOMEN: No masses, no rebound, no hepatomegaly or splenomegaly. EXTREMITIES: No signs of trauma. Patient has 3+ pitting edema. No calf or thigh tenderness. NEUROLOGIC: Cranial nerves II-XII within normal limits. No gross motor sensory function deficits. Medical Decision & Procedures ER Provider Diagnostic Interpretation: Radiology results as stated below per my review and radiologist interpretation: CHEST ONE VIEW PORTABLE CLINICAL HISTORY: Shortness of breath. Hypotension. COMPARISON STUDY: Chest radiograph September 24, 2016. FINDINGS: An electronic device projects over the left hemithorax. There is a right shoulder arthroplasty. Positioning on this exam was difficult. Elevation of the right hemidiaphragm is unchanged. A large hiatal hernia is again noted. Cardiac size is at the upper limits of normal. There is no pneumothorax or pleural effusion. There is no evidence of pulmonary edema. Mild left basilar opacity favors atelectasis. IMPRESSION: 1. No acute cardiopulmonary findings. No significant change in appearance of the chest. 2. Study compromised by motion artifact and difficulty positioning. Electronically signed by: Nilay Perdomo M.D. 03/11/2017 10:47 AM Dictated Date/Time: 03/11/2017 10:45 AM Laboratory Results 03/11/17 10:35 Red Blood Count 4.02, Mean Corpuscular Volume 79.1, Mean Corpuscular Hemoglobin 24.4, Mean Corpuscular Hemoglobin Concent 30.8, Mean Platelet Volume 9.2, Neutrophils (%) (Auto) 76.7, Lymphocytes (%) (Auto) 8.4, Monocytes (%) (Auto) 13.2, Eosinophils (%) (Auto) 1.2, Basophils (%) (Auto) 0.2, Neutrophils # (Auto ) 6.76, Lymphocytes # (Auto) 0.74, Monocytes # (Auto) 1.16, Eosinophils # (Auto ) 0.11, Basophils # (Auto) 0.02 03/11/17 10:35 Test 03/11/17 10:35 03/11/17 10:36 White Blood Count 8.82 K/uL (4.8-10.8) Red Blood Count 4.02 M/uL (4.7-6.1) Hemoglobin 9.8 g/dL (14.0-18.0) Hematocrit 31.8 % (42-52) Mean Corpuscular Volume 79.1 fL (80-100) Mean Corpuscular Hemoglobin 24.4 pg (25-34) Mean Corpuscular Hemoglobin Concent 30.8 g/dl (32-36) Platelet Count 325 K/uL (130-400) Mean Platelet Volume 9.2 fL (7.4-10.4) Neutrophils (%) (Auto) 76.7 % Lymphocytes (%) (Auto) 8.4 % Monocytes (%) (Auto) 13.2 % Eosinophils (%) (Auto) 1.2 % Basophils (%) (Auto) 0.2 % Neutrophils # (Auto) 6.76 K/uL (1.4-6.5) Lymphocytes # (Auto) 0.74 K/uL (1.2-3.4) Monocytes # (Auto) 1.16 K/uL (0.11-0.59) Eosinophils # (Auto) 0.11 K/uL (0-0.5) Basophils # (Auto) 0.02 K/uL (0-0.2) RDW Standard Deviation 45.4 fL (36.4-46.3) RDW Coefficient of Variation 15.4 % (11.5-14.5) Immature Granulocyte % (Auto) 0.3 % Immature Granulocyte # (Auto) 0.03 K/uL (0.00-0.02) Prothrombin Time 12.0 SECONDS (9.0-12.0) Prothromb Time International Ratio 1.1 (0.9-1.1) Activated Partial Thromboplast Time 27.2 SECONDS (21.0-31.0) Partial Thromboplastin Ratio 1.0 Anion Gap 3.0 mmol/L (3-11) Est Creatinine Clear Calc Drug Dose 86.3 ml/min Estimated GFR () 97.7 Estimated GFR (Non- 84.3 BUN/Creatinine Ratio 10.7 (10-20) Calcium Level 8.5 mg/dl (8.5-10.1) Total Bilirubin 0.5 mg/dl (0.2-1) Aspartate Amino Transf (AST/SGOT) 27 U/L (15-37) Alanine Aminotransferase (ALT/SGPT) 11 U/L (12-78) Alkaline Phosphatase 78 U/L (45-117) Troponin I 0.091 ng/ml (0-0.045) Total Protein 6.8 gm/dl (6.4-8.2) Albumin 3.1 gm/dl (3.4-5.0) Globulin 3.7 gm/dl (2.5-4.0) Albumin/Globulin Ratio 0.8 (0.9-2) Urine Color YELLOW Urine Appearance CLEAR (CLEAR) Urine pH 7.0 (4.5-7.5) Urine Specific [place] 1.015 (1.000-1.030) Urine Protein 2+ (NEG) Urine Glucose (UA) NEG (NEG) Urine Ketones NEG (NEG) Urine Occult Blood NEG (NEG) Urine Nitrite NEG (NEG) Urine Bilirubin NEG (NEG) Urine Urobilinogen NEG (NEG) Urine Leukocyte Esterase NEG (NEG) Urine WBC (Auto) 5-10 /hpf (0-5) Urine RBC (Auto) 0-4 /hpf (0-4) Urine Hyaline Casts (Auto) 5-10 /lpf (0-5) Urine Epithelial Cells (Auto) 10-20 /lpf (0-5) Urine Bacteria (Auto) NEG (NEG) Urine Renal Epithelial Cells /lpf (0-5) Urine Crystals CALCIUM OXALATE (NONE Urine Pathogenic Casts /lpf (0) Urine Mucus PRESENT (NONE PRSENT) Laboratory results as stated above per my review. ECG Indication: other (hypotension) Rate (beats per minute): 81 Rhythm: sinus rhythm Findings: PAC, no acute ischemic change, other (artifact due to stimulator ) ED Course 1009: Past medical records reviewed. The patient was evaluated in room A10. A complete history and physical examination was performed. 1208: I reassessed the patient at this time. He is resting comfortably. I discussed the results and treatment plan with the patient and his . I answered all pertaining questions that they had. They expressed understanding and verbalized agreement. 1218: I spoke with EVANS Rodriges. We discussed the patient's results and treatment plan. The patient will be evaluated by the [facility] for further management. 1234: I discussed the patient's case with Dr. Garber. Medical Decision Differential diagnoses includes hypotension, autonomic dysequilibrium, metabolic disorder, dehydration, orthostasis, CHF. The patient has a long history of Parkinson's disease he also has chronic peripheral edema. He is here today with documented hypotension. On arrival the blood pressure has already begun to rise. Multiple labs, EKG and imaging were obtained. Please see above. The patient's troponin is elevated. His hemoglobin/hematocrit are lower than they have been in the past. Blood pressure was managed with additional IV fluids. I discussed care with the patient, his and the hospitalist. In light of the patient's elevated troponin, low hemoglobin and multiple comorbid problems I believe that he requires further evaluation in the hospital. Medication Reconciliation: I attest that I have personally reviewed the patient' s current medication list. Blood Pressure Screening: Patient was found to have an elevated blood pressure and will need further management with the hospitalist service. Consults Time Called: 1212 Consulting Physician: EVANS Rodriges Returned Call: 1218 I spoke with EVANS Rodriges. We discussed the patient's results and treatment plan. The patient will be evaluated by the [facility] Group for further management. Additional Consults: Time Called: 1234 Consulted Physician: Dr. Garber Returned Call: 1234 Additional Comments: I discussed the patient's case with Dr. Garber. Impression Primary Impression: Elevated troponin Additional Impressions: Hypotension Anemia Hyponatremia Scribe Attestation The scribe's documentation has been prepared under my direction and personally reviewed by me in its entirety. I confirm that the note above accurately reflects all work, treatment, procedures, and medical decision making performed by me. Departure Information Dispostion Being Evaluated By Hospitalist Referrals Miguel Angel Curran, D.OIrasema (PCP) Patient Instructions [facility] Problem Qualifiers Additional Impressions: Hypotension Hypotension type: unspecified hypotension type Qualified Codes: I95.9 - Hypotension, unspecified Anemia Anemia type: unspecified type Qualified Codes: D64.9 - Anemia, unspecified
[2017-03-11 10:48] LABS: BASO % 0.2 %; BASO ABS # 0.02 K/uL (0-0.2); COMPLETE YES; EOS % 1.2 %; HEMATOCRIT 31.8 % (42-52); IG% 0.3 %; LYMPH % 8.4 %; LYMPH ABS # 0.74 K/uL (1.2-3.4); MEAN CELL VOLUME 79.1 fL (80-100); MEAN CORPUSCULAR HEMOGLOBIN 24.4 pg (25-34); MEAN CORPUSCULAR HGB CONC 30.8 g/dl (32-36); MEAN PLATELET VOLUME 9.2 fL (7.4-10.4); MONO % 13.2 %; NEUT % 76.7 %; PLATELET COUNT 325 K/uL (130-400); RED BLOOD COUNT 4.02 M/uL (4.7-6.1); WHITE BLOOD COUNT 8.82 K/uL (4.8-10.8)
--- NOTE | 2017-03-11 10:48 | DIAGNOSTIC IMAGING REPORT ---
CHEST ONE VIEW PORTABLE CLINICAL HISTORY: Shortness of breath. Hypotension. COMPARISON STUDY: Chest radiograph September 24, 2016. FINDINGS: An electronic device projects over the left hemithorax. There is a right shoulder arthroplasty. Positioning on this exam was difficult. Elevation of the right hemidiaphragm is unchanged. A large hiatal hernia is again noted. Cardiac size is at the upper limits of normal. There is no pneumothorax or pleural effusion. There is no evidence of pulmonary edema. Mild left basilar opacity favors atelectasis. IMPRESSION: 1. No acute cardiopulmonary findings. No significant change in appearance of the chest. 2. Study compromised by motion artifact and difficulty positioning. Electronically signed by: Nilay Perdomo M.D. 03/11/2017 10:47 AM Dictated Date/Time: 03/11/2017 10:45 AM
[2017-03-11 10:55] LABS: URINE APPEARANCE CLEAR (CLEAR); URINE BILIRUBIN NEG (NEG); URINE COLOR YELLOW; URINE NITRITE NEG (NEG); URINE SPECIFIC GRAVITY 1.015 (1.000-1.030); UROBILINOGEN NEG (NEG); ZZUR CULT IF INDIC CLEAN CATCH NO
[2017-03-11 10:57] LABS: INR 1.1 (0.9-1.1)
[2017-03-11 11:05] LABS: BUN/CREATININE RATIO 10.7 (10-20); CREATININE 0.95 mg/dl (0.60-1.40); POTASSIUM 4.7 mmol/L (3.5-5.1)
[2017-03-11 11:05] LABS: MANUAL MICROSCOPIC REQUIRED? NO; REVIEW REQ? YES
[2017-03-11 11:25] LABS: URINE MUCUS PRESENT (NONE PRSENT)
[2017-03-11 11:27] LABS: ALB/GLOB RATIO 0.8 (0.9-2); CALCIUM 8.5 mg/dl (8.5-10.1)
[2017-03-11 12:45] VITALS: O2SAT 94; Ht 170.2 cm; Wt 93.3 kg
[2017-03-11] MEDS ORDERED: ACETAMINOPHEN 325 MG TAB PO PRN (13:15)
[2017-03-11] MEDS ORDERED: ONDANSETRON INJ 2 MG/ML 2 ML VIAL IV PRN (13:15)
[2017-03-11] MEDS ORDERED: ROPI12TA PO (13:27)
[2017-03-11 13:54] VITALS: BP 146/88; PULSE 79; TEMP 36.9; O2SAT 93
[2017-03-11] MEDS ORDERED: IV FLUIDS COMPLETED PRN (14:00)
[2017-03-11] MEDS ORDERED: CARB25TA12 PO (14:33)
[2017-03-11 15:23] VITALS: BP 112/69; PULSE 87; TEMP 36.8; O2SAT 95
--- NOTE | 2017-03-11 15:51 | History and Physical ---
History & Physical Date & Time of Service: Mar 11, 2017 ~ 13:00 Chief Complaint: Low Blood Pressure Primary Care Physician: Miguel Angel Curran D.O. History of Present Illness 66 year old male who presents to the ER with low blood pressure. Patient has advanced Parkinson's disease, some history is obtained from the . She reports that the patient underwent right shoulder surgery about 8 weeks ago. She reports home health nursing has been in place since the surgery. She reports that they monitor his blood pressure during each visit. She reports that the past two days his blood pressure has been running high, around 170 systolically. Today the patient felt lightheaded and dizzy and his systolic blood pressure was in the 70s. No syncopal event. Patient denies chest pain, shortness of breath, nausea, and diaphoresis. Patient was seen at primary care about one week ago for UTI symptoms (dark urine with foul odor). He was placed on Cipro however culture was negative so the antibiotic has been stopped. Urine symptoms have resolved. reports the patient is wheelchair bound. He has not ambulated for the past 6 months due to right shoulder problems. reports that since he has had the surgery he has been working with therapy to start walking again. He is scheduled to have a brace made for his LLE. Patient reports his appetite has been good. He has chronic lower extremity edema which is unchanged. No abdominal pain, vomiting, or diarrhea. He denies fever or chills. In the ER, patient's BP has been improving on its own. Initial BP was 97 /55 and most recently was 148/88. Initial troponin 0.091. No EKG changes. Past Medical/Surgical History Medical Problems: (1) BPH (benign prostatic hypertrophy) Status: Chronic (2) Dyslipidemia Status: Chronic (3) GERD (gastroesophageal reflux disease) Status: Chronic (4) History of kidney stones Status: Chronic (5) HTN (hypertension) Status: Chronic (6) Iron deficiency anemia Status: Chronic (7) Overactive bladder Status: Chronic (8) Parkinson disease Status: Chronic (9) Venous insufficiency Status: Chronic Surgical Problems: (1) H/O inguinal hernia repair Status: Chronic (2) H/O shoulder surgery Status: Chronic (3) S/P deep brain stimulator placement Status: Chronic (4) S/p tonsil surgery Status: Chronic Family History Diabetes mellitus MOTHER FH: asthma FATHER FH: prostate cancer FATHER Hypertension FATHER SISTER Kidney disease Kidney stones Social History Smoking Status: Former Smoker Alcohol Use: none Marital Status: Housing status: lives with significant other Immunizations History of Influenza Vaccine: Yes Influenza Vaccine Date: Jul 27, 2016 History of Tetanus Vaccine?: Yes Tetanus Immunization Date: Jul 27, 2016 History of Pneumococcal: Yes Pneumococcal Date: Dec 15, 2012 Multi-Drug Resistant Organisms History of MDRO: No Allergies Coded Allergies: Sulindac (Verified Adverse Reaction, Intermediate, STOMACH IRRATION, ) Home Medications Scheduled Carbidopa/Levodopa (Sinemet 25MG/100MG), 1.5 TAB PO 5XD Clonazepam (Klonopin), 1 MG PO HS Cyanocobalamin (Vitamin B-12 1000 Mcg), 1,000 MCG PO DAILY Fish Oil (Fish Oil), 1 GM PO DAILY Lactobacillus Acidophilus (Lactinex), 1 TAB PO BID Levodopa/Carbidopa (Sinemet Cr 25MG/100MG), 1 TAB PO HS Lisinopril (Zestril), 10 MG PO DAILY Metoprolol Tartrate (Lopressor) (Lopressor), 25 MG PO BID Niacin (Niacin), 500 MG PO DAILY Omeprazole (Prilosec), 20 MG PO DAILY Ropinirole Hydrochloride (Requip Xl), 12 MG PO HS Tamsulosin HCl (Tamsulosin HCl), 0.4 MG PO HS Review of Systems ROS per HPI, all other systems reviewed and negative Physical Exam Vital Signs Date Time Temp Pulse Resp B/P (MAP) Pulse Ox O2 Delivery O2 Flow Rate FiO2 03/11/17 13:23 81 22 148/88 94 Room Air 03/11/17 12:45 94 Room Air 03/11/17 12:44 81 03/11/17 11:45 77 24 146/95 94 Room Air 03/11/17 10:19 80 116/69 78 119/75 80 111/67 03/11/17 10:12 79 03/11/17 09:47 36.9 76 34 97/55 93 Room Air General Appearance: no apparent distress Head: normocephalic Eyes: normal inspection ENT: hearing grossly normal Neck: supple, no JVD Respiratory/Chest: no respiratory distress, + decreased breath sounds Cardiovascular: regular rate, rhythm, + pertinent finding (+1-2 pitting edema BLLE) Abdomen/GI: normal bowel sounds, non tender, soft Extremities/Musculoskelatal: normal inspection, no calf tenderness Neurologic/Psych: alert, normal mood/affect, oriented x 3, + pertinent finding (flat affect, dysarthria, strong BLUE and BLLE ) Skin: normal color, warm/dry Diagnostics Laboratory Results Results Past 24 Hours Test 03/11/17 10:35 03/11/17 10:36 Range/Units White Blood Count 8.82 4.8-10.8 K/uL Red Blood Count 4.02 4.7-6.1 M/uL Hemoglobin 9.8 14.0-18.0 g/dL Hematocrit 31.8 42-52 % Mean Corpuscular Volume 79.1 80-100 fL Mean Corpuscular Hemoglobin 24.4 25-34 pg Mean Corpuscular Hemoglobin Concent 30.8 32-36 g/dl Platelet Count 325 130-400 K/uL Mean Platelet Volume 9.2 7.4-10.4 fL Neutrophils (%) (Auto) 76.7 % Lymphocytes (%) (Auto) 8.4 % Monocytes (%) (Auto) 13.2 % Eosinophils (%) (Auto) 1.2 % Basophils (%) (Auto) 0.2 % Neutrophils # (Auto) 6.76 1.4-6.5 K/uL Lymphocytes # (Auto) 0.74 1.2-3.4 K/uL Monocytes # (Auto) 1.16 0.11-0.59 K/uL Eosinophils # (Auto) 0.11 0-0.5 K/uL Basophils # (Auto) 0.02 0-0.2 K/uL RDW Standard Deviation 45.4 36.4-46.3 fL RDW Coefficient of Variation 15.4 11.5-14.5 % Immature Granulocyte % (Auto) 0.3 % Immature Granulocyte # (Auto) 0.03 0.00-0.02 K/uL Prothrombin Time 12.0 9.0-12.0 SECONDS Prothromb Time International Ratio 1.1 0.9-1.1 Activated Partial Thromboplast Time 27.2 21.0-31.0 SECONDS Partial Thromboplastin Ratio 1.0 Sodium Level 131 136-145 mmol/L Potassium Level 4.7 3.5-5.1 mmol/L Chloride Level 94 98-107 mmol/L Carbon Dioxide Level 34 21-32 mmol/L Anion Gap 3.0 3-11 mmol/L Blood Urea Nitrogen 10 7-18 mg/dl Creatinine 0.95 0.60-1.40 mg/dl Est Creatinine Clear Calc Drug Dose 86.3 ml/min Estimated GFR () 97.7 Estimated GFR (Non- 84.3 BUN/Creatinine Ratio 10.7 10-20 Random Glucose 80 70-99 mg/dl Calcium Level 8.5 8.5-10.1 mg/dl Total Bilirubin 0.5 0.2-1 mg/dl Aspartate Amino Transf (AST/SGOT) 27 15-37 U/L Alanine Aminotransferase (ALT/SGPT) 11 12-78 U/L Alkaline Phosphatase 78 45-117 U/L Troponin I 0.091 0-0.045 ng/ml Total Protein 6.8 6.4-8.2 gm/dl Albumin 3.1 3.4-5.0 gm/dl Globulin 3.7 2.5-4.0 gm/dl Albumin/Globulin Ratio 0.8 0.9-2 Urine Color YELLOW Urine Appearance CLEAR CLEAR Urine pH 7.0 4.5-7.5 Urine Specific [place] 1.015 1.000-1.030 Urine Protein 2+ NEG Urine Glucose (UA) NEG NEG Urine Ketones NEG NEG Urine Occult Blood NEG NEG Urine Nitrite NEG NEG Urine Bilirubin NEG NEG Urine Urobilinogen NEG NEG Urine Leukocyte Esterase NEG NEG Urine WBC (Auto) 5-10 0-5 /hpf Urine RBC (Auto) 0-4 0-4 /hpf Urine Hyaline Casts (Auto) 5-10 0-5 /lpf Urine Epithelial Cells (Auto) 10-20 0-5 /lpf Urine Bacteria (Auto) NEG NEG Urine Renal Epithelial Cells 0-5 /lpf Urine Crystals CALCIUM OXALATE NONE PRSENT Urine Pathogenic Casts 0 /lpf Urine Mucus PRESENT NONE PRSENT Diagnostic Radiology CXR IMPRESSION: 1. No acute cardiopulmonary findings. No significant change in appearance of the chest. 2. Study compromised by motion artifact and difficulty positioning. Impression Assessment and Plan EPISODIC HYPOTENSION, LIGHTHEADEDNESS - admit to tele - patient presenting with reported hypotension at home with systolic blood pressure in the 70s with associated lightheadedness and dizziness; upon arrival to the ER BP was 97/55 and improved to 148/88 without any intervention - suspect some component of autonomic dysfunction from Parkinson's - orthostatic BPs negative - no signs of infection or dehydration - continue to check orthostatic BPs - for now will continue home doses of Lisinopril and metoprolol - make adjustments as needed ELEVATED TROPONIN - suspect due to demand ischemia from hypotension - no reports of chest pain, EKG without acute ST changes - will check echo to evaluate for wall motion abnormalities ANEMIA - microcytic - chronic per review of outpatient chart - no obvious signs of bleeding - will check iron studies PARKINSON'S - brain stimulator in place - continue Sinemet and ropinirole DVT PROPHYLAXIS - SQ Lovenox CODE STATUS - Patient is a full code as per my discussion with him. DISPO - In my clinical judgment this beneficiary meets acute admission criteria, established by [facility], that includes being hospitalized through two midnights. ATTENDING ADDENDUM: I have seen and examined the patient above and agree with the assessment and plan as stated. Jcarlos, DO Advanced Directives Existing Living Will: Yes Existing Power of Back Wedger: Yes VTE Prophylaxis VTE Risk Assessment Done? Y/N: Yes Risk Level: Moderate
[2017-03-11 16:00] VITALS: O2SAT 94
[2017-03-11] MEDS ORDERED: REQUIP XL - ORDER AWAITING ACTION SCH (16:00)
[2017-03-11] MEDS ORDERED: CARBIDOPA/LEVODOPA 25/100MG TAB PO SCH (16:00)
[2017-03-11 16:38] LABS: FERRITIN 14.2 ng/ml (8.0-388.0)
[2017-03-11] MEDS: ROPINIROLE HCL 1 MG TAB PO SCH ×2 (16:58→20:32)
[2017-03-11] MEDS: CARBIDOPA/LEVODOPA 25/100MG TAB PO SCH (16:58)
[2017-03-11] MEDS ORDERED: NURSING VERBAL MED ORDER ONE (17:15)
[2017-03-11 18:52] VITALS: BP_SYST 122; BP_SYST 130; BP_DIAS 65; BP_DIAS 74; PULSE 80; TEMP 36.9; O2SAT 95
[2017-03-11] MEDS ORDERED: KETAMINE HCL INJ 50 MG/ML 10 ML VIAL IV ONE (19:37)
[2017-03-11] MEDS ORDERED: ROCURONIUM BROMIDE 10 MG/ML 10 ML VIAL IV ONE (19:37)
[2017-03-11 20:00] VITALS: O2SAT 87
[2017-03-11] MEDS: ENOXAPARIN 40 MG/0.4 ML SYR SC SCH (20:32)
[2017-03-11] MEDS: METOPROLOL TARTRATE 25 MG TAB PO SCH (20:33)
[2017-03-11] MEDS: TAMSULOSIN HCL 0.4 MG CAP PO SCH (20:34)
[2017-03-11] MEDS: CARBIDOPA/LEVODOPA 25/100MG EXT REL TAB PO SCH (20:34)
[2017-03-11] MEDS: LACTOBACILLUS ACIDOPHILUS (FLORANEX) TAB PO SCH (20:34)
[2017-03-11] MEDS: CLONAZEPAM 0.5 MG TAB PO SCH (20:40)
[2017-03-11] MEDS: ROPINIROLE HYDROCHLORIDE PO SCH (20:55)
[2017-03-12] VITALS (7 sets, daily range): BP systolic 105–160; BP diastolic 63–91; PULSE 65–95; TEMP 36.5–37.3; O2SAT 93–98
[2017-03-12] MEDS: CARBIDOPA/LEVODOPA 25/100MG TAB PO SCH ×5 (05:14→16:40)
[2017-03-12 06:30] LABS: HEMATOCRIT 30.3 % (42-52); MEAN CELL VOLUME 80.6 fL (80-100); MEAN CORPUSCULAR HEMOGLOBIN 23.9 pg (25-34); MEAN CORPUSCULAR HGB CONC 29.7 g/dl (32-36); MEAN PLATELET VOLUME 9.2 fL (7.4-10.4); PLATELET COUNT 314 K/uL (130-400); RED BLOOD COUNT 3.76 M/uL (4.7-6.1); WHITE BLOOD COUNT 5.12 K/uL (4.8-10.8)
[2017-03-12 07:03] LABS: BUN/CREATININE RATIO 10.9 (10-20); CALCIUM 8.3 mg/dl (8.5-10.1); CREATININE 0.86 mg/dl (0.60-1.40); POTASSIUM 4.6 mmol/L (3.5-5.1)
[2017-03-12] MEDS: LACTOBACILLUS ACIDOPHILUS (FLORANEX) TAB PO SCH ×2 (08:29→21:49)
[2017-03-12] MEDS: LISINOPRIL 10 MG TAB PO SCH (08:29)
[2017-03-12] MEDS: CYANOCOBALAMIN 500 MCG TAB (VIT B-12) PO SCH (08:29)
[2017-03-12] MEDS: PANTOprazole SOD 40 MG TAB PO SCH (08:30)
[2017-03-12] MEDS: OMEGA-3 (PURIFIED FISH OIL) 1 GM CAP PO SCH (08:30)
[2017-03-12] MEDS: NIACIN 500 MG TAB IMMEDIATE RELEASE PO SCH (08:30)
[2017-03-12] MEDS: METOPROLOL TARTRATE 25 MG TAB PO SCH ×2 (08:30→21:49)
[2017-03-12] MEDS ORDERED: ROPI4TAB3 PO (08:37)
[2017-03-12] MEDS ORDERED: ROPINIROLE HCL 1 MG TAB PO SCH (09:00)
[2017-03-12] MEDS ORDERED: NURSING VERBAL MED ORDER ONE (10:15)
[2017-03-12] MEDS: ROPINIROLE HCL 1 MG TAB PO SCH ×2 (13:00→16:40)
[2017-03-12] MEDS ORDERED: OPTIRAY 320 IV PRN (13:30)
--- NOTE | 2017-03-12 14:33 | DIAGNOSTIC IMAGING REPORT ---
CT ANGIOGRAPHY OF THE CHEST, PULMONARY EMBOLUS PROTOCOL CLINICAL HISTORY: Elevated d-dimer and hypoxia. COMPARISON STUDY: Chest radiograph March 11, 2017. TECHNIQUE: Following IV administration of 93 mL of Optiray-320, helical axial images of the chest were obtained utilizing the pulmonary embolus protocol. Maximal intensity projections and sagittal and coronal reformats were viewed on an independent 3D workstation. IV contrast was administered without complication. CT DOSE: 676.69 mGy.cm FINDINGS: No pulmonary emboli are identified. The heart is mildly enlarged. There is no evidence of thoracic aortic dissection. There is a moderate sized hiatal hernia. No pneumothorax is present. There are trace bilateral pleural effusions. There is no consolidation to suggest pneumonia. Subpleural opacities represent atelectasis or scarring. Bony thorax is remarkable. Mild bronchial wall thickening is noted, most evident within the lower lobes. Visualized portions of the upper abdomen are unremarkable. IMPRESSION: 1. No pulmonary emboli identified. 2. Trace bilateral pleural effusions. 3. Subpleural opacities suggestive of atelectasis or scarring. No consolidation to suggest pneumonia. Mild bronchial wall thickening. 3. Moderate sized hiatal hernia. 4. Mild cardiomegaly. No thoracic aortic dissection. Electronically signed by: Nilay Perdomo M.D. 03/12/2017 2:31 PM Dictated Date/Time: 03/12/2017 2:22 PM
--- NOTE | 2017-03-12 18:25 | Progress Note ---
Medicine Progress Note Date & Time of Visit: Mar 12, 2017 at 11:56. Subjective 66 yo M with severe Parkinson's disease who is s/p shoulder surgery presenting with episodic hypotension and lightheadedness -pt denies any symptoms, including no lightheadedness, chest pain or SOB -he is mentating at baseline per who is at bedside -he is tolerating PO Objective Last 8 Hrs Date Time Temp Pulse Resp B/P (MAP) Pulse Ox O2 Delivery O2 Flow Rate FiO2 03/12/17 08:00 Nasal Cannula 2.0 03/12/17 07:36 37.3 95 19 141/83 (102) 93 Nasal Cannula 2.0 03/12/17 04:00 Nasal Cannula 2.0 Physical Exam: GEN: WNWD, in no acute distress, alert and appropriate HEENT: NC/AT, normal sclerae CARDIO: reg rate, S1/2 heard without m/g/r LUNGS: CTA bilaterally, no crackles, rales or wheezes, good diaphragmatic excursion ABD: soft, non-tender, non-distended, no rebound or guarding, +BS EXTREMITY: warm and well-perfused NEURO: no acute focal deficit is apparent, speech is garbled (chronic) SKIN: warm and dry Laboratory Results: 03/12/17 05:31 03/12/17 05:31 Test 03/11/17 10:35 03/11/17 10:36 03/11/17 16:05 03/11/17 16:06 Immature Granulocyte % (Auto) 0.3 % White Blood Count 8.82 K/uL (4.8-10.8) Red Blood Count 4.02 M/uL (4.7-6.1) Hemoglobin 9.8 g/dL (14.0-18.0) Hematocrit 31.8 % (42-52) Mean Corpuscular Volume 79.1 fL (80-100) Mean Corpuscular Hemoglobin 24.4 pg (25-34) Mean Corpuscular Hemoglobin Concent 30.8 g/dl (32-36) Platelet Count 325 K/uL (130-400) Mean Platelet Volume 9.2 fL (7.4-10.4) Neutrophils (%) (Auto) 76.7 % Lymphocytes (%) (Auto) 8.4 % Monocytes (%) (Auto) 13.2 % Eosinophils (%) (Auto) 1.2 % Basophils (%) (Auto) 0.2 % Neutrophils # (Auto) 6.76 K/uL (1.4-6.5) Lymphocytes # (Auto) 0.74 K/uL (1.2-3.4) Monocytes # (Auto) 1.16 K/uL (0.11-0.59) Eosinophils # (Auto) 0.11 K/uL (0-0.5) Basophils # (Auto) 0.02 K/uL (0-0.2) Immature Granulocyte # (Auto) 0.03 K/uL (0.00-0.02) Prothrombin Time 12.0 SECONDS (9.0-12.0) Prothromb Time International Ratio 1.1 (0.9-1.1) Activated Partial Thromboplast Time 27.2 SECONDS (21.0-31.0) Partial Thromboplastin Ratio 1.0 Total Bilirubin 0.5 mg/dl (0.2-1) Aspartate Amino Transf (AST/SGOT) 27 U/L (15-37) Alanine Aminotransferase (ALT/SGPT) 11 U/L (12-78) Alkaline Phosphatase 78 U/L (45-117) Total Protein 6.8 gm/dl (6.4-8.2) Albumin 3.1 gm/dl (3.4-5.0) Globulin 3.7 gm/dl (2.5-4.0) Albumin/Globulin Ratio 0.8 (0.9-2) Urine Color YELLOW Urine Appearance CLEAR (CLEAR) Urine pH 7.0 (4.5-7.5) Urine Specific [place] 1.015 (1.000-1.030) Urine Protein 2+ (NEG) Urine Glucose (UA) NEG (NEG) Urine Ketones NEG (NEG) Urine Occult Blood NEG (NEG) Urine Nitrite NEG (NEG) Urine Bilirubin NEG (NEG) Urine Urobilinogen NEG (NEG) Urine Leukocyte Esterase NEG (NEG) Urine WBC (Auto) 5-10 /hpf (0-5) Urine RBC (Auto) 0-4 /hpf (0-4) Urine Hyaline Casts (Auto) 5-10 /lpf (0-5) Urine Epithelial Cells (Auto) 10-20 /lpf (0-5) Urine Bacteria (Auto) NEG (NEG) Urine Renal Epithelial Cells /lpf (0-5) Urine Crystals CALCIUM OXALATE (NONE Urine Pathogenic Casts /lpf (0) Urine Mucus PRESENT (NONE PRSENT) Absolute Reticulocyte Count 0.04 10^6/uL (0.02-0.10) Percent Reticulocyte Count 0.9 % (0.5-2.0) Iron Level 13 mcg/dl (35-175) Total Iron Binding Capacity 375 mcg/dl (250-450) Transferrin 272 mg/dl (200-360) Transferrin % Saturation 3 % (20-50) Ferritin 14.2 ng/ml (8.0-388.0) Vitamin B12 Level 1355 pg/mL (211-911) Folate > 24.00 ng/mL (>5.38) Test 03/11/17 22:00 03/11/17 22:18 03/12/17 05:31 03/12/17 12:07 Creatine Kinase MB Ratio (0-3.0) Creatine Kinase MB 3.0 ng/ml (0.5-3.6) Troponin I 0.042 ng/ml (0-0.045) Red Blood Count 3.76 M/uL (4.7-6.1) Mean Corpuscular Volume 80.6 fL (80-100) Mean Corpuscular Hemoglobin 23.9 pg (25-34) Mean Corpuscular Hemoglobin Concent 29.7 g/dl (32-36) RDW Standard Deviation 46.1 fL (36.4-46.3) RDW Coefficient of Variation 15.7 % (11.5-14.5) Mean Platelet Volume 9.2 fL (7.4-10.4) Anion Gap 3.0 mmol/L (3-11) Est Creatinine Clear Calc Drug Dose 96.1 ml/min Estimated GFR () 106.2 Estimated GFR (Non- 91.6 BUN/Creatinine Ratio 10.9 (10-20) Calcium Level 8.3 mg/dl (8.5-10.1) D-Dimer 1370 ug/L FEU (0-500) Last 24 Hours Test 03/11/17 15:36 03/11/17 16:05 03/11/17 16:06 03/11/17 22:00 Transferrin % Saturation % 3 % Absolute Reticulocyte Count 0.04 10^6/uL Percent Reticulocyte Count 0.9 % Iron Level 13 mcg/dl Total Iron Binding Capacity 375 mcg/dl Transferrin 272 mg/dl Ferritin 14.2 ng/ml Creatine Kinase MB 3.3 ng/ml Creatine Kinase MB Ratio Troponin I 0.060 ng/ml Vitamin B12 Level 1355 pg/mL Folate > 24.00 ng/mL Test 03/11/17 22:18 03/12/17 05:31 03/12/17 11:43 Creatine Kinase MB 3.0 ng/ml Troponin I 0.042 ng/ml White Blood Count 5.12 K/uL Red Blood Count 3.76 M/uL Hemoglobin 9.0 g/dL Hematocrit 30.3 % Mean Corpuscular Volume 80.6 fL Mean Corpuscular Hemoglobin 23.9 pg Mean Corpuscular Hemoglobin Concent 29.7 g/dl RDW Standard Deviation 46.1 fL RDW Coefficient of Variation 15.7 % Platelet Count 314 K/uL Mean Platelet Volume 9.2 fL Sodium Level 136 mmol/L Potassium Level 4.6 mmol/L Chloride Level 97 mmol/L Carbon Dioxide Level 36 mmol/L Anion Gap 3.0 mmol/L Blood Urea Nitrogen 9 mg/dl Creatinine 0.86 mg/dl Est Creatinine Clear Calc Drug Dose 96.1 ml/min Estimated GFR () 106.2 Estimated GFR (Non- 91.6 BUN/Creatinine Ratio 10.9 Random Glucose 86 mg/dl Calcium Level 8.3 mg/dl Assessment & Plan 66 yo M with severe Parkinson's disease who is s/p shoulder surgery presenting with episodic hypotension and lightheadedness 1. Hypotension-BP has remained stable during admission, and lightheadedness has resolved. Orthostatics are difficult on him as he is bedbound and wheelchair bound and is not weight bearing at this time. No signis of infection or dehydration. Poss autonomic dysfunction contributing. With persistent hypoxia in sedentary post op state, PE workup was performed and was negative. Cont home BP meds. 2. Hypoxia-persistent, likely 2/2 atelectasis in setting of chronic shallow breathing "from my Parkinson's". Workup negative for PE. Need dispo plan and poss outpatient follow-up. Appreciate pulmonary evaluation prior to discharge. 3. Elevated troponin-mild elevation that resolved to normal levels. TTE performed this morning-awaiting reading. No CP or SOB was ever present. EKGs reveal sinus rhythm. One with reading of afib but suspect this was error 2/2 artifact from neurostimulator. 4. Microcytic anemia-iron deficient on labwork. Will start iron supplementation. Needs outpatient follow-up. 5. Parkinson's-chronic, stable, cont Sinemet and Ropironole DVT PROPHYLAXIS - SQ Lovenox CODE STATUS: FULL DISPO-cont tele overnight, awaiting formal PT recs. DO [facility] Hospitalist Consultants: Pulm Current Inpatient Medications: Current Inpatient Medications Medications (Trade) Dose Ordered Sig/Luz Route Start Time Stop Time Status Last Admin Dose Admin Enoxaparin Sodium (Lovenox Inj) 40 mg Q24H SC 03/11/17 21:00 04/10/17 20:59 03/11/17 20:32 40 MG Acetaminophen (Tylenol Tab) 650 mg Q4H PRN PO 03/11/17 13:15 04/10/17 13:14 Ondansetron HCl (Zofran Inj) 4 mg Q6H PRN IV 03/11/17 13:15 04/10/17 13:14 Miscellaneous (Iv Fluids Completed) 1 ea PRN PRN N/A 03/11/17 14:00 03/11/18 13:59 Clonazepam (Klonopin Tab) 1 mg HS PO 03/11/17 21:00 04/10/17 20:59 03/11/17 20:40 0.5 MG Cyanocobalamin (Vitamin B-12 Tab) 1,000 mcg DAILY PO 03/12/17 09:00 04/11/17 08:59 03/12/17 08:29 1,000 MCG Fish Oil ([place]-3 (Purified Fish Oil) Cap) 1 gm DAILY PO 03/12/17 09:00 04/11/17 08:59 03/12/17 08:30 1 GM Lactobacillus Acidophilus (Floranex Tab) 1 tab BID PO 03/11/17 21:00 04/10/17 20:59 03/12/17 08:29 1 TAB Carbidopa/Levodopa (Sinemet Cr 25/ 100MG Tab) 1 tab HS PO 03/11/17 21:00 04/10/17 20:59 03/11/17 20:34 1 TAB Lisinopril (Zestril Tab) 10 mg DAILY PO 03/12/17 09:00 04/11/17 08:59 03/12/17 08:29 10 MG Metoprolol Tartrate (Lopressor Tab) 25 mg BID PO 03/11/17 21:00 04/10/17 20:59 03/12/17 08:30 25 MG Niacin (Niacin Tab) 500 mg DAILY PO 03/12/17 09:00 04/11/17 08:59 03/12/17 08:30 500 MG Tamsulosin HCl (Flomax Cap) 0.4 mg HS PO 03/11/17 21:00 04/10/17 20:59 03/11/17 20:34 0.4 MG Pantoprazole Sodium (Protonix Tab) 40 mg DAILY PO 03/12/17 09:00 04/11/17 08:59 03/12/17 08:30 40 MG Carbidopa/Levodopa (Sinemet 25/ 100MG Tab) 1.5 tab 0500,0800,1100,1400,1700 PO 03/11/17 17:00 04/10/17 16:59 03/12/17 11:20 1.5 TAB Ropinirole HCl (Ropinirole Er) 12 mg HS PO 03/11/17 21:00 04/10/17 20:59 03/11/17 20:55 12 MG Ropinirole HCl (Requip Tab) 4 mg QID@0500,0900,1300,1700 PO 03/12/17 13:00 04/11/17 12:59
--- NOTE | 2017-03-12 21:46 | DIAGNOSTIC IMAGING REPORT ---
BILATERAL LOWER EXTREMITY VENOUS DOPPLER CLINICAL HISTORY: Elevated d-dimer. COMPARISON STUDY: No previous studies for comparison. TECHNIQUE: Sonography of the deep venous system of the bilateral lower extremities was performed. Compression and augmentation were evaluated. FINDINGS: This exam was compromised due to difficulty positioning. The common femoral, superficial femoral and popliteal veins were compressible. Augmentation was normal. Flow was shown within the deep calf vessels. IMPRESSION: Technically difficult exam but no evidence of deep venous thrombus within the bilateral lower extremities. Electronically signed by: Nilay Perdomo M.D. 03/12/2017 9:45 PM Dictated Date/Time: 03/12/2017 9:44 PM
[2017-03-12] MEDS: ENOXAPARIN 40 MG/0.4 ML SYR SC SCH (21:49)
[2017-03-12] MEDS: CARBIDOPA/LEVODOPA 25/100MG EXT REL TAB PO SCH (21:50)
[2017-03-12] MEDS: TAMSULOSIN HCL 0.4 MG CAP PO SCH (21:50)
[2017-03-12] MEDS: ROPINIROLE HYDROCHLORIDE PO SCH (21:50)
[2017-03-12] MEDS: CLONAZEPAM 0.5 MG TAB PO SCH (21:52)
[2017-03-13] VITALS (12 sets, daily range): BP systolic 119–159; BP diastolic 68–92; PULSE 65–88; TEMP 36.3–36.9; O2SAT 85–100
[2017-03-13] MEDS ORDERED: LORAZEPAM 2 MG/ML 1 ML VIAL ONE ×2 (02:09→15:14)
[2017-03-13] MEDS ORDERED: LORAZEPAM 2 MG/ML 1 ML VIAL IV ONE (02:15)
[2017-03-13] MEDS ORDERED: ALBUT/IPRATROP 3MG/0.5MG NEB 3 ML VIAL INH ONE (04:43)
[2017-03-13] MEDS ORDERED: ALBUT/IPRATROP 3MG/0.5MG NEB 3 ML VIAL INH PRN (04:45)
[2017-03-13] MEDS: ROPINIROLE HCL 1 MG TAB PO SCH ×5 (05:00→17:00)
[2017-03-13] MEDS: CARBIDOPA/LEVODOPA 25/100MG TAB PO SCH ×7 (05:00→20:32)
--- NOTE | 2017-03-13 07:39 | Pulmonary Consultation ---
History General Date of Service: Mar 13, 2017. Stated Complaint: Hypotension HPI The patient is a 66 year old male who presents to [facility] with complaints of Hypotension. The patient's primary care provider is Miguel Angel Curran D.O.. He came to the emergency room on March 11. It had been noticed that his blood pressure at home was much lower than normal. Usually he has some hypertension. 2 days before admission his blood pressure systolically have been 170 and on the day of admission at home his blood pressure had been as low as 73/28. The patient was relatively asymptomatic. He was having some lightheadedness and dizziness slightly. There was no report of any true syncopal episode. The patient does have Parkinson's disease and has been essentially wheelchair bound without ambulation for about 6 months. Pulmonary consultation is requested regarding hypoxia. His oxygen saturation in the emergency room on room air had been 87%. He has been placed on oxygen since admission. On a number of occasions the staff had taken the oxygen off to see how his saturations would be. They were intermittently running as low as the mid 80s. The patient himself does not complain of any shortness of breath. He is a poor historian however. He is actually quite difficult to understand his speech due to his Parkinson's disease. He does breathe with rapid rates intermittently. In spite of this he doesn't seem to complain. He states that he does cough. He indicates this occurs especially with swallowing. The patient was asked by myself if he had difficulty swallowing liquids and his answer was "somewhat". He gave me the same answer for swallowing solids and he actually gave me that answer for many questions and thus I am not certain about how valid his history is. He denied coughing up any phlegm. He doesn't feel like he has a cold. He denies having chest pains. There is been no hemoptysis. He denied having prior pulmonary problems. Apparently he used to smoke in the past. I could not determine from him when he quit or how much she used to smoke. To the best of my knowledge he has not been on any breathing medicines at home. No family members were present when I was examining him. As part of his workup the patient had a chest x-ray on March 11 that showed no active findings. He did undergo a CT angiogram of the chest on March 12. This showed no evidence of pulmonary embolic disease. There were trace effusions noted bilaterally. There were areas of subpleural atelectasis or scars especially at the left lung base. He has at least a moderate sized hiatal hernia with part of the stomach being in the chest. Review of Systems The review of systems was extremely difficult to obtain. The patient is not a good historian. His speech is very garbled. The patient did admit that his legs feel somewhat weak. Otherwise the review of systems was only as noted in my history of present illness. I could simply not getting answers to many questions associated with the multiple systems. Past Medical History Past Medical History: BPH Kidney stones Hyperlipidemia GERD Hypertension Anemia related to iron deficiency Parkinson's disease Venous insufficiency Past Medical History: BPH, GERD, high cholesterol, hypertension, kidney stones , other Past Surgical History: Hernia repair Right shoulder surgery approximately 2 months ago Insertion of a brain stimulator Tonsillectomy Past Surgical History: tonsillectomy, other Family History Diabetes mellitus MOTHER FH: asthma FATHER FH: prostate cancer FATHER Hypertension FATHER SISTER Kidney disease Kidney stones Social History Hx Tobacco Use In Past Year?: No Smoking Status: Former Smoker Marital status: Housing status: lives with significant other Immunizations History of Influenza Vaccine: Yes Influenza Vaccine Date: Jul 27, 2016 History of Tetanus Vaccine?: Yes Tetanus Immunization Date: Jul 27, 2016 History of Pneumococcal: Yes Pneumococcal Date: Dec 15, 2012 History of MDRO History of MDRO: No Allergies Coded Allergies: Sulindac (Verified Adverse Reaction, Intermediate, STOMACH IRRATION, ) Current Medications Reported Home Medications Medications Dose Route/Sig Max Daily Dose Days Date Category Requip (Ropinirole HCl) 4 Mg Tab 4 Mg PO QID 03/12/17 Reported Sinemet 25MG/100MG (Carbidopa/Levodopa) Tab 1.5 Tab PO 5XD 03/11/17 Reported Requip Xl (Ropinirole Hydrochloride) 12 Mg Tab 12 Mg PO HS 03/11/17 Reported Tamsulosin HCl 0.4 Mg Cap 0.4 Mg PO HS 12/24/16 Reported Lactinex (Lactobacillus Acidophilus) Tab 1 Tab PO BID 12/24/16 Reported Fish Oil 1 Gm Cap 1 Gm PO DAILY 12/24/16 Reported Prilosec (Omeprazole) 20 Mg Capcr 20 Mg PO DAILY 08/23/16 Reported Zestril (Lisinopril) 10 Mg Tab 10 Mg PO DAILY 06/27/16 Reported Lopressor (Metoprolol Tartrate) 25 Mg Tab 25 Mg PO BID 90 04/14/15 Reported Vitamin B-12 1000 Mcg (Cyanocobalamin) 1,000 Mcg Tab 1,000 Mcg PO DAILY 08/19/12 Reported Niacin 500 Mg Tab 500 Mg PO DAILY 08/19/12 Reported Sinemet Cr 25MG/100MG (Carbidopa/Levodopa) 1 Ea Tabcr 1 Tab PO HS 08/19/12 Reported Klonopin (Clonazepam) 0.5 Mg Tab 1 Mg PO HS 08/19/12 Reported Physical Physical Exam Vital Signs: Date Time Temp Pulse Resp B/P (MAP) Pulse Ox O2 Delivery O2 Flow Rate FiO2 03/13/17 04:00 Room Air 03/13/17 03:32 36.8 73 26 124/68 (86) 92 Nasal Cannula 2.0 03/13/17 00:00 Room Air 03/12/17 23:48 36.9 71 16 116/72 (87) 94 2.0 03/12/17 20:00 Nasal Cannula 2.0 03/12/17 19:16 36.5 75 26 154/89 (110) 98 Nasal Cannula 3.0 03/12/17 16:00 Nasal Cannula 2.0 03/12/17 15:33 36.9 80 24 160/91 (114) 98 Nasal Cannula 2.0 03/12/17 12:14 36.7 74 19 105/64 (78) 96 Nasal Cannula 2.0 03/12/17 12:00 Nasal Cannula 2.0 03/12/17 08:00 Nasal Cannula 2.0 03/12/17 07:36 37.3 95 19 141/83 (102) 93 Nasal Cannula 2.0 The patient is a 66-year-old male who was awake and fairly alert. He was cooperative. His speech was garbled. He did follow commands. He did not appear in any distress. Pupils were reactive to light. Nasal passages were mildly congested. Nasal cannula oxygen was in place. Mouth exam revealed that he has numerous teeth missing. Pharynx was a malum pottery grade 2. Palpation of the neck reveals no lymph nodes or masses. His face had some degree of asymmetry. The chest showed a mild kyphosis. The cardiac rhythm was irregularly irregular. Cardiac rate was 73 bpm. Blood pressure this morning is 124/68. The patient has a very irregular breathing pattern. At times his respiratory rates will be 30+ per minute and then he will suddenly slowed down. I did not notice episodes of apnea but he was awake. Nursing staff did not specifically note apnea during the nighttime as per my conversation with them. Auscultation of the lung chacon reveals end-expiratory wheezing. This was heard with the patient sitting in the upright position and taking deeper breaths. There was no accessory muscle use. The abdomen was soft. Bowel sounds were well heard. There was no tenderness to palpation, masses, or organomegaly. The right leg appeared slightly larger than the left leg. There was no definitive edema cyanosis or clubbing. Diagnostics Labs Results Past 24 Hours Test 03/12/17 12:07 Range/Units D-Dimer 1370 0-500 ug/L FEU White blood cell count done March 12 is 5.12. The hemoglobin is 9.0. Hematocrit is 30.3. Platelets are 314,000. Coags are normal urinalysis showed +2 protein with 5-10 WBCs. No bacteria was seen. Electrolytes showed a sodium of 136 potassium 4.6 chloride 97 and bicarbonate 36. The patient's admission troponin have been slightly elevated at 0.091. Follow-up was 0.060. Impression Assessment and Plan Impression: #1 hypoxia-uncertain etiology #2 wheezing heard on exam-rule out underlying chronic lung disease #3 elevated carbon dioxide on electrolytes-rule out hypercarbia #4 mild basilar atelectasis #5 severe Parkinson's disease #6 possible aspiration/dysphagia Comments and recommendations: The patient does not seem clinically ill. However he has mild wheezing on examination. He has hypoxia. He has an elevated CO2 on electrolytes. It could be that he has underlying chronic lung disease that has not been appreciated. Certainly the patient would not be able to do pulmonary function testing I don't believe. The CTA has ruled out pulmonary embolism. He clearly has an irregular breathing pattern. I suspect this may be related to his Parkinson's disease. It would not be totally unsuspected that the patient could have sleep apnea. For now I would like to do an arterial blood gas to determine the actual levels of his arterial PCO2. I will initiate nebulizer treatments on a regular basis rather than just when necessary. He does have an irregular rhythm. The exact underlying rhythm is not determined. Hopefully the bronchodilators will not precipitate a worsening arrhythmia.
[2017-03-13 08:34] LABS: ALLEN TEST POS (POS); ARTERIAL BLD GAS O2 SATURATION 93.3 % (90-95); ARTERIAL BLOOD GAS BASE EXCESS 10.7 mEq/L (-9-1.8); ARTERIAL BLOOD GAS HCO3 39 mmol/L (19-24); ARTERIAL BLOOD GAS PO2 80 mm/Hg (80-95); ARTERIAL BLOOD GAS pH 7.31 (7.35-7.45); O2 ADMINISTRATION 2 L
[2017-03-13] MEDS: FERROUS SULFATE 325 MG TAB PO SCH ×3 (08:44→16:45)
[2017-03-13] MEDS: LACTOBACILLUS ACIDOPHILUS (FLORANEX) TAB PO SCH ×2 (08:44→20:33)
[2017-03-13] MEDS: NIACIN 500 MG TAB IMMEDIATE RELEASE PO SCH (08:44)
[2017-03-13] MEDS: CYANOCOBALAMIN 500 MCG TAB (VIT B-12) PO SCH (08:45)
[2017-03-13] MEDS: LISINOPRIL 10 MG TAB PO SCH (08:46)
[2017-03-13] MEDS: PANTOprazole SOD 40 MG TAB PO SCH (08:47)
[2017-03-13] MEDS: OMEGA-3 (PURIFIED FISH OIL) 1 GM CAP PO SCH (08:47)
[2017-03-13] MEDS: METOPROLOL TARTRATE 25 MG TAB PO SCH ×2 (08:47→20:33)
--- NOTE | 2017-03-13 09:30 | ECHOCARDIOGRAM REPORT ---
*NOTICE TO RECEIVING CONSTITUTION PARTY AGENCY This information is strictly Confidential and protected under [place] law. [place] law prohibits you from making any further disclosure of this information unless further disclosure is expressly permitted by the written consent of the person to whom it pertains or is authorized by law. A general authorization for the release of medical or other information is not sufficient for this purpose. Hospital accepts no responsibility if the information is made available to any other person, INCLUDING THE PATIENT. Interpretation Summary * Name: FELIBERTO VASQUEZ Study Date: 03/12/2017 01:13 PM BP: 112/68 mmHg * Patient Location: .2T\S\E219\S\1 HR: 82 * : 1950 (M/d/yyy) Gender: Male Height: 67 in * Age: 66 yrs Ethnicity: CA Weight: 209 lb * Ordering Physician: Jenny Dalal * Referring Physician: Self, Referred * Performed By: Raf Germain RDCS * * Reason For Study: Elevated troponin * BSA: 2.1 m2 * -- Conclusions -- * The left ventricle is normal in size. * Left ventricular systolic function is normal. * Ejection Fraction = 60-65%. * The right ventricular systolic function is normal. * The left atrial size is normal. * Right atrial size is normal. * There is moderate tricuspid regurgitation. Procedure Details * A complete two-dimensional transthoracic echocardiogram was performed (2D, M-mode, Doppler and color flow Doppler). * The study was technically difficult. * There were technical limitations due to patient'sbody habitus * A contrast injection of Definity was performed to improve assessment of LV function. * Contrast was injected into an intravenous site in the left arm. * One vial of Definity ultrasound contrast was diluted in normal saline to a total volume of 10 ml. A total of '6' ml of solution was administered during imaging. * Lot # [id number] of Definity utilized for procedure. * Expiration date UL. * The attending nurse who injected the contrast agent was DENNY Lee. Left Ventricle * The left ventricle is normal in size. * There is normal left ventricular wall thickness. * Left ventricular systolic function is normal. * Ejection Fraction = 60-65%. * The left ventricular wall motion is normal. Right Ventricle * The right ventricle is normal size. * The right ventricular systolic function is normal. Atria * The left atrial size is normal. * Right atrial size is normal. * The interatrial septum is intact with no evidence for an atrial septal defect. Mitral Valve * The mitral valve is grossly normal. * Significant mitral regurgitation is absent. Tricuspid Valve * The tricuspid valve anatomy is normal. * There is moderate tricuspid regurgitation. Aortic Valve * The aortic valve is trileaflet. * Trace aortic regurgitation. Pulmonic Valve * The pulmonic valve is not well visualized. Great Vessels * The aortic root and proximal ascending aorta are normal sized. Pericardium/Pleural * There is no pericardial effusion. MMode 2D Measurements and Calculations IVSd 1.1 cm IVSs 1.7 cm LVIDd 5.0 cm LVIDs 2.9 cm LVPWd 1.1 cm LVPWs 1.8 cm IVS/LVPW 0.97 FS 41.2 % EDV(Teich) 119.1 ml ESV(Teich) 33.5 ml EF(Teich) 71.9 % EDV(cubed) 126.1 ml ESV(cubed) 25.6 ml EF(cubed) 79.7 % % IVS thick 62.5 % % LVPW thick 59.3 % LV mass(C)d 204.7 grams LV mass(C)dI 99.4 grams/m\S\2 LV mass(C)s 202.0 grams LV mass(C)sI 98.0 grams/m\S\2 SV(Teich) 85.6 ml SI(Teich) 41.5 ml/m\S\2 SV(cubed) 100.5 ml SI(cubed) 48.8 ml/m\S\2 EPSS 0.69 cm Ao root diam 3.1 cm Ao root area 7.4 cm\S\2 ACS 2.1 cm LA dimension 3.7 cm asc Aorta Diam 3.9 cm LA/Ao 1.2 LVOT diam 2.1 cm LVOT area 3.5 cm\S\2 LVAd ap4 34.6 cm\S\2 LVLd ap4 8.3 cm EDV(MOD-sp4) 121.0 ml LVAs ap4 18.5 cm\S\2 LVLs ap4 6.0 cm ESV(MOD-sp4) 46.0 ml EF(MOD-sp4) 62.0 % LVAd ap2 34.1 cm\S\2 LVLd ap2 7.9 cm EDV(MOD-sp2) 124.0 ml LVAs ap2 17.8 cm\S\2 LVLs ap2 5.8 cm ESV(MOD-sp2) 46.0 ml EF(MOD-sp2) 62.9 % SV(MOD-sp4) 75.0 ml SI(MOD-sp4) 36.4 ml/m\S\2 SV(MOD-sp2) 78.0 ml SI(MOD-sp2) 37.9 ml/m\S\2 Doppler Measurements and Calculations MV E max avery 130.2 cm/sec MV A max avery 100.6 cm/sec MV E/A 1.3 MV dec time 0.17 sec Ao V2 max 203.0 cm/sec Ao max PG 16.5 mmHg Ao max PG (full) 7.4 mmHg MAU(V,A) 2.6 cm\S\2 MAU(V,D) 2.6 cm\S\2 AI max avery 324.0 cm/sec AI max PG 42.0 mmHg AI dec slope 155.0 cm/sec\S\2 AI P1/2t 612.2 msec LV V1 max PG 9.0 mmHg LV V1 max 150.4 cm/sec TR max avery 333.0 cm/sec
[2017-03-13] MEDS: ALBUT/IPRATROP 3MG/0.5MG NEB 3 ML VIAL INH SCH ×4 (11:12→19:26)
[2017-03-13] MEDS ORDERED: LORAZEPAM 2 MG/ML 1 ML VIAL IV STA (15:12)
[2017-03-13 15:49] LABS: ARTERIAL BLD GAS O2 SATURATION 85.5 % (90-95); ARTERIAL BLOOD GAS BASE EXCESS 12.5 mEq/L (-9-1.8); ARTERIAL BLOOD GAS HCO3 40 mmol/L (19-24); ARTERIAL BLOOD GAS PO2 55 mm/Hg (80-95); ARTERIAL BLOOD GAS pH 7.34 (7.35-7.45)
[2017-03-13 15:51] LABS: ALLEN TEST POS (POS); O2 ADMINISTRATION 2 LITERS O2
--- NOTE | 2017-03-13 17:33 | Progress Note ---
Medicine Progress Note Date & Time of Visit: Mar 13, 2017 at 17:21. Subjective 66 yo M with severe Parkinson's disease who is s/p shoulder surgery presenting with episodic hypotension and lightheadedness, which has resolved. Now with hypoxia and CO2 retention requiring oxygen. -BIPAP trial started -on initial exam patient appeared oriented and stated that he didn't want the BIPAP but would think about it -denies any pain or other issues. -agitated overnight requiring 2mg Ativan with good response -pt was up and walking the floors after being wheelchair-bound 6 months ago. Objective Last 8 Hrs Date Time Temp Pulse Resp B/P (MAP) Pulse Ox O2 Delivery O2 Flow Rate FiO2 03/13/17 16:00 Nasal Cannula 2.0 BiPAP 03/13/17 15:56 36.5 88 24 119/72 (88) 100 Nasal Cannula 2.0 03/13/17 15:11 72 28 85 Room Air 03/13/17 12:00 Nasal Cannula 2.0 BiPAP 03/13/17 11:48 66 96 40 03/13/17 11:24 36.9 65 20 150/92 (111) 92 03/13/17 11:13 66 22 Nasal Cannula 2.0 Physical Exam: GEN: WNWD, delirious and states that he wants to leave, oxygen is off, is at bedside and states that she won't take him home, agitated and pulling off clothes and wires. HEENT: NC/AT, normal sclerae CARDIO: reg rate, S1/2 heard without m/g/r LUNGS: CTA bilaterally, no crackles, rales or wheezes, good diaphragmatic excursion ABD: soft, non-tender, non-distended, no rebound or guarding, +BS EXTREMITY: warm and well-perfused NEURO: no acute focal deficit is apparent, speech is garbled (chronic) SKIN: warm and dry Laboratory Results: 03/12/17 05:31 03/12/17 05:31 Test 03/11/17 10:35 03/11/17 10:36 03/11/17 16:05 03/11/17 16:06 Immature Granulocyte % (Auto) 0.3 % White Blood Count 8.82 K/uL (4.8-10.8) Red Blood Count 4.02 M/uL (4.7-6.1) Hemoglobin 9.8 g/dL (14.0-18.0) Hematocrit 31.8 % (42-52) Mean Corpuscular Volume 79.1 fL (80-100) Mean Corpuscular Hemoglobin 24.4 pg (25-34) Mean Corpuscular Hemoglobin Concent 30.8 g/dl (32-36) Platelet Count 325 K/uL (130-400) Mean Platelet Volume 9.2 fL (7.4-10.4) Neutrophils (%) (Auto) 76.7 % Lymphocytes (%) (Auto) 8.4 % Monocytes (%) (Auto) 13.2 % Eosinophils (%) (Auto) 1.2 % Basophils (%) (Auto) 0.2 % Neutrophils # (Auto) 6.76 K/uL (1.4-6.5) Lymphocytes # (Auto) 0.74 K/uL (1.2-3.4) Monocytes # (Auto) 1.16 K/uL (0.11-0.59) Eosinophils # (Auto) 0.11 K/uL (0-0.5) Basophils # (Auto) 0.02 K/uL (0-0.2) Immature Granulocyte # (Auto) 0.03 K/uL (0.00-0.02) Prothrombin Time 12.0 SECONDS (9.0-12.0) Prothromb Time International Ratio 1.1 (0.9-1.1) Activated Partial Thromboplast Time 27.2 SECONDS (21.0-31.0) Partial Thromboplastin Ratio 1.0 Total Bilirubin 0.5 mg/dl (0.2-1) Aspartate Amino Transf (AST/SGOT) 27 U/L (15-37) Alanine Aminotransferase (ALT/SGPT) 11 U/L (12-78) Alkaline Phosphatase 78 U/L (45-117) Total Protein 6.8 gm/dl (6.4-8.2) Albumin 3.1 gm/dl (3.4-5.0) Globulin 3.7 gm/dl (2.5-4.0) Albumin/Globulin Ratio 0.8 (0.9-2) Urine Color YELLOW Urine Appearance CLEAR (CLEAR) Urine pH 7.0 (4.5-7.5) Urine Specific G[place]ard 1.015 (1.000-1.030) Urine Protein 2+ (NEG) Urine Glucose (UA) NEG (NEG) Urine Ketones NEG (NEG) Urine Occult Blood NEG (NEG) Urine Nitrite NEG (NEG) Urine Bilirubin NEG (NEG) Urine Urobilinogen NEG (NEG) Urine Leukocyte Esterase NEG (NEG) Urine WBC (Auto) 5-10 /hpf (0-5) Urine RBC (Auto) 0-4 /hpf (0-4) Urine Hyaline Casts (Auto) 5-10 /lpf (0-5) Urine Epithelial Cells (Auto) 10-20 /lpf (0-5) Urine Bacteria (Auto) NEG (NEG) Urine Renal Epithelial Cells /lpf (0-5) Urine Crystals CALCIUM OXALATE (NONE Urine Pathogenic Casts /lpf (0) Urine Mucus PRESENT (NONE PRSENT) Absolute Reticulocyte Count 0.04 10^6/uL (0.02-0.10) Percent Reticulocyte Count 0.9 % (0.5-2.0) Iron Level 13 mcg/dl (35-175) Total Iron Binding Capacity 375 mcg/dl (250-450) Transferrin 272 mg/dl (200-360) Transferrin % Saturation 3 % (20-50) Ferritin 14.2 ng/ml (8.0-388.0) Vitamin B12 Level 1355 pg/mL (211-911) Folate > 24.00 ng/mL (>5.38) Test 03/11/17 22:00 03/11/17 22:18 03/12/17 05:31 03/12/17 12:07 Creatine Kinase MB Ratio (0-3.0) Creatine Kinase MB 3.0 ng/ml (0.5-3.6) Troponin I 0.042 ng/ml (0-0.045) Red Blood Count 3.76 M/uL (4.7-6.1) Mean Corpuscular Volume 80.6 fL (80-100) Mean Corpuscular Hemoglobin 23.9 pg (25-34) Mean Corpuscular Hemoglobin Concent 29.7 g/dl (32-36) RDW Standard Deviation 46.1 fL (36.4-46.3) RDW Coefficient of Variation 15.7 % (11.5-14.5) Mean Platelet Volume 9.2 fL (7.4-10.4) Anion Gap 3.0 mmol/L (3-11) Est Creatinine Clear Calc Drug Dose 96.1 ml/min Estimated GFR () 106.2 Estimated GFR (Non- 91.6 BUN/Creatinine Ratio 10.9 (10-20) Calcium Level 8.3 mg/dl (8.5-10.1) D-Dimer 1370 ug/L FEU (0-500) Test 03/13/17 15:41 Arterial Blood pH 7.34 (7.35-7.45) Arterial Blood Partial Pressure CO2 76 mmHg (35-46) Arterial Blood Partial Pressure O2 55 mm/Hg (80-95) Arterial Blood HCO3 40 mmol/L (19-24) Arterial Blood Oxygen Saturation 85.5 % (90-95) Arterial Blood Base Excess 12.5 mEq/L (-9-1.8) Arterial Blood Gas Delivery 2 LITERS O2 Luigi Test POS (POS) Last 24 Hours Test 03/13/17 07:42 03/13/17 15:41 Arterial Blood pH 7.31 7.34 Arterial Blood Partial Pressure CO2 79 mmHg 76 mmHg Arterial Blood Partial Pressure O2 80 mm/Hg 55 mm/Hg Arterial Blood HCO3 39 mmol/L 40 mmol/L Arterial Blood Oxygen Saturation 93.3 % 85.5 % Arterial Blood Base Excess 10.7 mEq/L 12.5 mEq/L Arterial Blood Gas Delivery 2 L 2 LITERS O2 Luigi Test POS POS Assessment & Plan 66 yo M with severe Parkinson's disease who is s/p shoulder surgery presenting with episodic hypotension and lightheadedness 1. Acute respiratory failure with CO2 retention and hypoxia-the patient is agitated likely from CO2 retention and will not keep BIPAP in place. ABG after a couple hours of BIPAP was not changed very much, and it is possible that he is a chronic CO2 retainer poss 2/2 YOON. He has poor posture and shallow breathing from the Parkinson's and is on alot of sedating medication, especially the ropirinole. Gave Ativan for agitation overnight with good response, and will give again now. Recheck ABG reveals CO2 76 and O2 level 55. Pt fell asleep in response to the medication and the BIPAP was placed on him again. Will make him NPO for now until he calms down. was at bedside and agrees with current plan. BIPAP qHS. Atelectasis likely contributing to hypoxia. Apprec pulm recs. 2. Hypotension-BP has remained stable during admission, and lightheadedness has resolved. Cont home BP meds. 3. Elevated troponin-mild elevation that resolved to normal levels. TTE performed yesterday with no acute wall motion abnormalities. 4. Microcytic anemia-iron deficient on labwork. Will start iron supplementation. Needs outpatient follow-up. 5. Parkinson's-chronic, stable, cont Sinemet and Ropironole. Of note, patient was up and walking around last night after being bedbound and wheelchair bound for 6 months. Cont PT DVT PROPHYLAXIS - SQ Lovenox CODE STATUS: FULL DISPO-cont tele overnight, awaiting formal PT recs. [facility] Hospital[facility] Consultants: Pulm Current Inpatient Medications: Current Inpatient Medications Medications (Trade) Dose Ordered Sig/Lzu Route Start Time Stop Time Status Last Admin Dose Admin Enoxaparin Sodium (Lovenox Inj) 40 mg Q24H SC 03/11/17 21:00 04/10/17 20:59 03/12/17 21:49 40 MG Acetaminophen (Tylenol Tab) 650 mg Q4H PRN PO 03/11/17 13:15 04/10/17 13:14 Ondansetron HCl (Zofran Inj) 4 mg Q6H PRN IV 03/11/17 13:15 04/10/17 13:14 Miscellaneous (Iv Fluids Completed) 1 ea PRN PRN N/A 03/11/17 14:00 03/11/18 13:59 Clonazepam (Klonopin Tab) 1 mg HS PO 03/11/17 21:00 04/10/17 20:59 03/12/17 21:52 0.5 MG Cyanocobalamin (Vitamin B-12 Tab) 1,000 mcg DAILY PO 03/12/17 09:00 04/11/17 08:59 03/13/17 08:45 1,000 MCG Fish Oil ([place]-3 (Purified Fish Oil) Cap) 1 gm DAILY PO 03/12/17 09:00 04/11/17 08:59 03/13/17 08:47 1 GM Lactobacillus Acidophilus (Floranex Tab) 1 tab BID PO 03/11/17 21:00 04/10/17 20:59 03/13/17 08:44 1 TAB Carbidopa/Levodopa (Sinemet Cr 25/ 100MG Tab) 1 tab HS PO 03/11/17 21:00 04/10/17 20:59 03/12/17 21:50 1 TAB Lisinopril (Zestril Tab) 10 mg DAILY PO 03/12/17 09:00 04/11/17 08:59 03/13/17 08:46 10 MG Metoprolol Tartrate (Lopressor Tab) 25 mg BID PO 03/11/17 21:00 04/10/17 20:59 03/13/17 08:47 25 MG Niacin (Niacin Tab) 500 mg DAILY PO 03/12/17 09:00 04/11/17 08:59 03/13/17 08:44 500 MG Tamsulosin HCl (Flomax Cap) 0.4 mg HS PO 03/11/17 21:00 04/10/17 20:59 03/12/17 21:50 0.4 MG Pantoprazole Sodium (Protonix Tab) 40 mg DAILY PO 03/12/17 09:00 04/11/17 08:59 03/13/17 08:47 40 MG Carbidopa/Levodopa (Sinemet 25/ 100MG Tab) 1.5 tab 0500,0800,1100,1400,1700 PO 03/11/17 17:00 04/10/17 16:59 03/13/17 14:25 1.5 TAB Ropinirole HCl (Ropinirole Er) 12 mg HS PO 03/11/17 21:00 04/10/17 20:59 03/12/17 21:50 12 MG Ropinirole HCl (Requip Tab) 4 mg QID@0500,0900,1300,1700 PO 03/12/17 13:00 04/11/17 12:59 03/13/17 14:00 4 MG Ioversol (Optiray 320) 111 ml UD PRN IV 03/12/17 13:30 03/16/17 13:29 Ferrous Sulfate (Feosol Tab) 325 mg TIDM PO 03/13/17 07:30 04/12/17 07:29 03/13/17 11:30 325 MG Albuterol/ Ipratropium (Duoneb) 3 ml Q2H PRN INH 03/13/17 04:45 04/12/17 04:44 Albuterol/ Ipratropium (Duoneb) 3 ml QIDR INH 03/13/17 08:00 04/12/17 07:59 03/13/17 15:11 3 ML
[2017-03-13] MEDS: TAMSULOSIN HCL 0.4 MG CAP PO SCH (20:32)
[2017-03-13] MEDS: CLONAZEPAM 0.5 MG TAB PO SCH (20:33)
[2017-03-13] MEDS: CARBIDOPA/LEVODOPA 25/100MG EXT REL TAB PO SCH ×2 (20:34→20:42)
[2017-03-13] MEDS: ROPINIROLE HYDROCHLORIDE PO SCH (20:35)
[2017-03-13] MEDS: ENOXAPARIN 40 MG/0.4 ML SYR SC SCH (20:35)
[2017-03-14] VITALS (67 sets, daily range): BP systolic 63–173; BP diastolic 43–118; PULSE 67–116; TEMP 35.5–38.4; O2SAT 80–100
[2017-03-14] MEDS ORDERED: LEVALBUTEROL/IPRATROPIUM NEB INH STA (04:44)
[2017-03-14] MEDS ORDERED: LEVALBUTEROL/IPRATROPIUM NEB INH PRN (04:45)
[2017-03-14] MEDS ORDERED: RAPID SEQUENCE INDUCTION BAG ONE ×2 (04:57→13:09)
[2017-03-14] MEDS ORDERED: LEVALBUTEROL 1.25MG/0.5ML NEB INH STA (04:59)
[2017-03-14] MEDS ORDERED: IPRATROPIUM BROMIDE NEB SOLN 0.02% 2.5 ML VIAL INH STA (04:59)
[2017-03-14] MEDS: ROPINIROLE HCL 1 MG TAB PO SCH (05:00)
[2017-03-14] MEDS ORDERED: LEVALBUTEROL 1.25MG/0.5ML NEB INH PRN (05:00)
[2017-03-14] MEDS ORDERED: IPRATROPIUM BROMIDE NEB SOLN 0.02% 2.5 ML VIAL INH PRN (05:00)
[2017-03-14] MEDS ORDERED: METHYLPREDNISOLONE IV 40 MG in SYRINGE 0 ML IV ONE (05:05)
--- NOTE | 2017-03-14 05:11 | Progress Note ---
Internal Med Progress Note Date of Service: Mar 14, 2017. Provider Documentation: SUBJECTIVE: Made aware by RN around 440AM of decreased patient responsiveness. Px was was found to have O2 sats 80s on nasal cannula. PX patient noted to be hypothermic. As per RN account, BiPAP had to be removed earlier around 12:45 AM after a period of emesis. BiPAP re-applied promptly by staff w/ note of px obtunded state. Neb treatment given.. Patient noted to be apneic despite BiPAP. CODE BLUE called. Ambu bagging initiated. OBJECTIVE: Vital Signs-as noted below Exam: General-responds to suctioning, obese HEENT -pale palp conjunctivae, dried oral secretions over the mouth Neck-supple Lungs-rhonchi left Heart-tachycardic Abdomen-distension Extremities-min LE edema, no tenderness NE decreased responsiveness CXR infiltrate left ABG pH. 7, pCO2 130s, pO2 76 on 80% A/P Respiratory arrest secondary to worsening hypoxemic, hypercapnic respiratory failure secondary to aspiration pneumonia Respiratory acidosis secondary to above possible sepsis 2 to aspiration pneumonia Emergent endotracheal intubation via Glidescope done at bedside by SCOTT Paige. ICU transfer Vent management Solu-Medrol 1 dose Cultures, check lactic acid Zosyn. Upon arrival at the ICU, I was notified by RN of hypotension SBP 60s. IVF bolus given. hold anti HTN meds Add Vancomycin to Zosyn for possible severe sepsis. Dr. Potter inside sales account manager control panel assembler was made aware of ICU admission. Attempted to update patient's of developments over the phone over the phone. No answer. Left message for call back. Total critical care time was 50 minutes. Vital Signs: Date Time Temp Pulse Resp B/P (MAP) Pulse Ox O2 Delivery O2 Flow Rate FiO2 03/14/17 06:04 97 20 147/92 100 03/14/17 05:39 110 20 102/68 100 03/14/17 05:20 80 03/14/17 05:14 36.6 116 20 79/50 (60) 99 Mechanical Ventilator 80 63/43 (50) 03/14/17 04:50 102 92 80 03/14/17 04:50 102 14 92 BiPAP/CPAP 80 03/14/17 04:04 35.5 102 22 135/61 (85) 86 Nasal Cannula 4.0 03/14/17 03:47 37.2 112 18 135/61 (85) 80 Nasal Cannula 3.0 03/14/17 00:30 96 BiPAP 03/14/17 00:18 36.9 67 18 130/65 (86) 94 BiPAP 03/13/17 23:24 72 95 40 03/13/17 20:00 96 BiPAP 03/13/17 19:35 73 94 40 03/13/17 19:34 73 30 94 BiPAP/CPAP 40 03/13/17 19:18 36.8 80 24 159/81 (107) 96 BiPAP 03/13/17 16:00 Nasal Cannula 2.0 BiPAP 03/13/17 15:56 36.5 88 24 119/72 (88) 100 Nasal Cannula 2.0 03/13/17 15:11 72 28 85 Room Air 03/13/17 12:00 Nasal Cannula 2.0 BiPAP 03/13/17 11:48 66 96 40 03/13/17 11:24 36.9 65 20 150/92 (111) 92 03/13/17 11:13 66 22 Nasal Cannula 2.0 03/13/17 08:11 Nasal Cannula 2.0 03/13/17 07:18 36.3 83 24 153/88 (109) 91 2.0 Lab Results: Results Past 24 Hours Test 03/13/17 07:42 03/13/17 15:41 03/14/17 04:36 03/14/17 05:11 Range/Units Arterial Blood pH 7.31 7.34 7.35-7.45 Arterial Blood Partial Pressure CO2 79 76 35-46 mmHg Arterial Blood Partial Pressure O2 80 55 80-95 mm/Hg Arterial Blood HCO3 39 40 19-24 mmol/L Arterial Blood Oxygen Saturation 93.3 85.5 90-95 % Arterial Blood Base Excess 10.7 12.5 -9-1.8 mEq/L Arterial Blood Gas Delivery 2 L 2 LITERS O2 Luigi Test POS POS POS Bedside Glucose 170 70-99 mg/dl Activated Partial Thromboplast Time 26.3 21.0-31.0 SECONDS Partial Thromboplastin Ratio 1.0 Sodium Level 137 136-145 mmol/L Potassium Level 5.9 3.5-5.1 mmol/L Chloride Level 95 98-107 mmol/L Carbon Dioxide Level 43 21-32 mmol/L Anion Gap -1.0 3-11 mmol/L Blood Urea Nitrogen 12 7-18 mg/dl Creatinine 1.00 0.60-1.40 mg/dl Est Creatinine Clear Calc Drug Dose 81.5 ml/min Estimated GFR () 91.8 Estimated GFR (Non- 79.2 BUN/Creatinine Ratio 11.9 10-20 Random Glucose 172 70-99 mg/dl Calcium Level 8.2 8.5-10.1 mg/dl Magnesium Level 2.5 1.8-2.4 mg/dl Test 03/14/17 06:01 Range/Units Blood Gas Sample Site R Radial Bedside Blood Gas pH (LAB) 7.36 7.35-7.45 Bedside Blood Gas pCO2 (LAB) 71 35-46 mmHg Bedside Blood Gas pO2 (LAB) 61 80-95 mmHg Bedside Blood Gas HCO3 (LAB) 40 19-24 meq/L Bedside Blood Gas Total CO2 > 40 24-31 mEq/l Bedside Blood Gas Base Excess (LAB) 15.0 -9-1.8 meq/L Bedside Blood Gas O2 Saturation 89.0 90-95 % Luigi Test Pass Oxygen Delivery Device Ventilator Bedside Oxygen Rate (breaths/min) 20 Blood Gas Minute Ventilation 9.5 Bedside FiO2 80 % Blood Gas Tidal Volume 500 Blood Gas PEEP 5 Lactic Acid Level 0.8 0.4-2.0 mmol/L Microbiology Results 03/14/17 Blood Culture, Received Pending 03/14/17 Blood Culture, Received Pending 03/14/17 MRSA DNA Surveillance Screen, Received Pending
[2017-03-14] MEDS ORDERED: PIPERACILLIN/TAZOBACTAM 4.5 GM/100ML D5W IV STA (05:20)
--- NOTE | 2017-03-14 05:21 | EMERGENCY ROOM VISIT NOTE ---
ED Visit Note Code Hansel was called as Pt stopped breathing. I presented to bedside. Patient never lost pulses. He is apneic and being bagged. Oral airway in place. Intermittent vomiting. Per report from nursing staff patient is a full code. As he was unresponsive in the decision to intubate him. Last potassium the i- STAT was 5.8. 1.2 mg/kg of Carlos along with 2mg/kg of ketamine as the patient was clearly not protecting his airway and was apneic. GEN: Unresponsive, ill-appearing OROPHARYNX: oral airway in place with dark vomit CHEST: good chest rise w/ bagging HEART: +S1/+S2 UPPER Extremity: laceration over right shoulder EM PROCEDURE NOTE - Endotracheal Intubation PROCEDURE NOTE: Informed consent was not obtained by the patient. Verify Correct Patient: yes Procedure: Endotracheal intubation Indication: resp failure The procedure was done emergently. Description of the Procedure: The patient was seen and properly identified. The patient was pre-oxygenated and intubated after rapid sequence induction with meds: Carlos and ketamine. Intubation was performed using glidescope 3 blade. The tube was visualized going through the cords and secured with the 23cm dane at the lips. The patient had good bilateral breath sounds in the axillae with good chest rise. Proper ET tube placement was confirmed by end tidal CO2 detector. The patient tolerated the procedure well. Dr. Diaz will follow up on CXR which we did call for.
[2017-03-14] MEDS ORDERED: CONSULT PHARMACY STA (05:27)
[2017-03-14] MEDS ORDERED: SODIUM CHLORIDE 0.9% 1000ML 1,000 ML IV STA (05:27)
[2017-03-14] MEDS ORDERED: PIPERACILL/TAZOBAC CONSULT ACTIVE PRN (05:30)
[2017-03-14] MEDS: LEValbuterol HFA 15GM INHALER INH SCH ×4 (05:42→19:30)
[2017-03-14] MEDS: IPRATROPIUM BROMIDE HFA INHALER INH SCH ×4 (05:42→19:30)
[2017-03-14 05:46] LABS: BUN/CREATININE RATIO 11.9 (10-20); CALCIUM 8.2 mg/dl (8.5-10.1); MAGNESIUM 2.5 mg/dl (1.8-2.4); POTASSIUM 5.9 mmol/L (3.5-5.1)
[2017-03-14] MEDS: FAMOTIDINE IV INJ 20 MG in DEXTROSE 5% 100ML 100 ML IV SCH ×2 (05:53→17:05)
[2017-03-14] MEDS ORDERED: VANCOMYCIN CONSULT ACTIVE PRN (06:00)
[2017-03-14] MEDS ORDERED: VANCOMYCIN INJ 2,300 MG in SODIUM CHLORIDE 0.9% 500ML 500 ML IV ONE (06:00)
[2017-03-14] MEDS ORDERED: VANCOMYCIN INJ 2,300 MG in SODIUM CHLORIDE 0.9% 500ML 500 ML IV SCH (06:00)
[2017-03-14 06:12] LABS: ISTAT ALLEN TEST Pass; ISTAT ARTERIAL BLOOD GAS HCO3 40 meq/L (19-24); ISTAT ARTERIAL BLOOD GAS PCO2 71 mmHg (35-46); ISTAT ARTERIAL BLOOD GAS PO2 61 mmHg (80-95); ISTAT ARTERIAL BLOOD GAS pH 7.36 (7.35-7.45); ISTAT CARBON DIOXIDE > 40 mEq/l (24-31); ISTAT DELIVERY SYSTEM Ventilator; ISTAT FIO2 80 %; ISTAT PEEP 5; ISTAT RATE 20; ISTAT SITE R Radial; VE 9.5; Vt 500
[2017-03-14] MEDS ORDERED: INSULIN GLARGINE SOLOSTAR 100 UNITS/ML 3 ML PEN SC ONE (06:15)
[2017-03-14] MEDS ORDERED: CALCIUM GLUCONATE 10% 1,000 MG in SODIUM CHLORIDE 0.9% 50ML 50 ML IV ONE (06:30)
[2017-03-14] MEDS ORDERED: SODIUM CHLORIDE 0.9% 1000ML 1,000 ML IV SCH ×2 (06:30→06:45)
[2017-03-14] MEDS ORDERED: LANTUS PER UNIT CHARGE SQ ONE (06:30)
[2017-03-14 07:33] LABS: HEMATOCRIT 34.4 % (42-52); MEAN CELL VOLUME 86.6 fL (80-100); MEAN CORPUSCULAR HEMOGLOBIN 24.2 pg (25-34); MEAN CORPUSCULAR HGB CONC 27.9 g/dl (32-36); MEAN PLATELET VOLUME 9.6 fL (7.4-10.4); PLATELET COUNT 358 K/uL (130-400); RED BLOOD COUNT 3.97 M/uL (4.7-6.1); WHITE BLOOD COUNT 11.64 K/uL (4.8-10.8)
[2017-03-14] MEDS: LORAZEPAM 2 MG/ML 1 ML VIAL IV PRN ×3 (07:49→13:01)
--- NOTE | 2017-03-14 07:55 | DIAGNOSTIC IMAGING REPORT ---
CHEST ONE VIEW PORTABLE CLINICAL HISTORY: Respiratory failure COMPARISON STUDY: 03/14/2017 FINDINGS: There is an endotracheal tube 23 mm above the cory. There is left lung volume loss. There is a developing left paramediastinal upper lung zone opacity. There is a probable left pleural effusion with left basilar atelectasis/consolidation. There is a left-sided generator pack with electrodes extending cephalad. This likely represents a neurostimulator. IMPRESSION: 1. Interval placement of endotracheal tube 23 mm above the cory 2. Progressive left-sided volume loss with a developing left para mediastinal lung zone opacity Electronically signed by: Sam Jordan M.D. 03/14/2017 7:53 AM Dictated Date/Time: 03/14/2017 7:49 AM
[2017-03-14] MEDS: ROPINIROLE HCL 1 MG TAB NG SCH ×4 (07:58→20:11)
[2017-03-14] MEDS ORDERED: PHARMACY GLYCEMIC MGMT CONSULT PRN (08:42)
[2017-03-14] MEDS ORDERED: DEXTROSE 50% 50 ML SYR IV PRN (08:45)
[2017-03-14] MEDS ORDERED: GLUCOSE 10 TABS/TUBE PO PRN (08:45)
[2017-03-14] MEDS ORDERED: GLUCOSE 40% GEL 15 GM TUBE PO PRN (08:45)
[2017-03-14] MEDS ORDERED: GLUCAGON FOR INJ 1 MG VIAL SQ PRN (08:45)
[2017-03-14] MEDS: INSULIN ASPART 100 UNITS/ML 3 ML PEN SC SCH ×4 (09:00→23:36)
[2017-03-14] MEDS ORDERED: LEVALBUTEROL/IPRATROPIUM NEB INH SCH (09:00)
[2017-03-14] MEDS ORDERED: IPRATROPIUM BROMIDE NEB SOLN 0.02% 2.5 ML VIAL INH SCH (09:00)
[2017-03-14] MEDS ORDERED: LEVALBUTEROL 1.25MG/0.5ML NEB INH SCH (09:00)
[2017-03-14 09:10] LABS: ANISOCYTOSIS PRESENT; BASO % 0.2 %; BASO ABS # 0.02 K/uL (0-0.2); COMPLETE YES; EOS % 0.7 %; HYPOCHROMIA PRESENT; IG% 0.3 %; LYMPH % 6.4 %; LYMPH ABS # 0.74 K/uL (1.2-3.4); MONO % 5.2 %; NEUT % 87.2 %; POLYCHROMASIA 1+; STOMATOCYTE 1+
--- NOTE | 2017-03-14 09:26 | Pharmacy Progress Note ---
Pharmacy Abx Initial Consult Date of Service Mar 14, 2017. Pharmacy Dosing Scope Date of Consult: 03/14/17 Consultation requested by: Dr. Yang Pharmacy is consulted to initiate Vancomycin/Zosyn IV dosing therapy, order appropriate labs and adjust drug dose/frequency. Subjective The patient is a 66 year old male admitted on Mar 11, 2017 at 12:37. Objective Height (Feet): 5 Height (Inches): 7.00 Weight (Kilograms): 95.300 Vital Signs (Past 12Hrs) Vital Signs Past 12 Hours Date Time Temp Pulse Resp B/P (MAP) Pulse Ox O2 Delivery O2 Flow Rate FiO2 03/14/17 07:10 100 03/14/17 06:04 97 20 147/92 100 03/14/17 05:39 110 20 102/68 100 03/14/17 05:20 80 03/14/17 05:14 36.6 116 20 79/50 (60) 99 Mechanical Ventilator 80 63/43 (50) 03/14/17 04:50 102 92 80 03/14/17 04:50 102 14 92 BiPAP/CPAP 80 03/14/17 04:04 35.5 102 22 135/61 (85) 86 Nasal Cannula 4.0 03/14/17 03:47 37.2 112 18 135/61 (85) 80 Nasal Cannula 3.0 03/14/17 00:30 96 BiPAP 03/14/17 00:18 36.9 67 18 130/65 (86) 94 BiPAP 03/13/17 23:24 72 95 40 Lab Results (24Hrs) Laboratory Tests (24 Hours) Test 03/14/17 05:11 03/14/17 06:01 White Blood Count 11.64 K/uL (4.8-10.8) H Red Blood Count 3.97 M/uL (4.7-6.1) L Hemoglobin 9.6 g/dL (14.0-18.0) L Hematocrit 34.4 % (42-52) L Mean Corpuscular Volume 86.6 fL (80-100) # Mean Corpuscular Hemoglobin 24.2 pg (25-34) L Mean Corpuscular Hemoglobin Concent 27.9 g/dl (32-36) L Platelet Count 358 K/uL (130-400) Mean Platelet Volume 9.6 fL (7.4-10.4) Neutrophils (%) (Auto) 87.2 % Lymphocytes (%) (Auto) 6.4 % Monocytes (%) (Auto) 5.2 % Eosinophils (%) (Auto) 0.7 % Basophils (%) (Auto) 0.2 % Neutrophils # (Auto) 10.16 K/uL (1.4-6.5) H Lymphocytes # (Auto) 0.74 K/uL (1.2-3.4) L Monocytes # (Auto) 0.61 K/uL (0.11-0.59) H Eosinophils # (Auto) 0.08 K/uL (0-0.5) Basophils # (Auto) 0.02 K/uL (0-0.2) Lactic Acid Level 0.8 mmol/L (0.4-2.0) Micro Results Date/Time Source Procedure Growth Status 03/14/17 06:01 Blood Blood Culture Pending Received 03/14/17 05:58 Blood Blood Culture Pending Received 03/14/17 05:19 Nasal MRSA DNA Surveillance Screen - Final Specimen Positive for MRSA by DNA Probe Complete Risk Factors for Resistance * Antimicrobial use within the last 90 days: Cipro PO for suspected UTI ( discontinued half way through course due to negative cultures) Assessment & Plan Assessment 66 year old male initiated on Vancomycin/Zosyn IV for suspected aspiration pneumonia. Blood cultures pending. MRSA swab positive. Bronch planned in the next 24 hrs. Plan Vancomycin IV * Loading dose: 2300 mg (25 mg/kg) * Maintenance dose: 1500 mg IV (15 mg/kg) every 12 hours * Goal trough level for pulmonary source: 15 to 20 mcg/mL * Trough level ordered for 03/16/17 prior to the 0600 dose. * Need to watch Scr closely and change dosing if necessary Piperacillin/tazobactam * 4.5 g bolus administered over 30 minutes, then 3.375 g IV extended infusion every 8 hours for CrCl greater than 20 mL/min Pharmacy will continue to follow and will adjust dose/frequency as necessary. Thank you.
--- NOTE | 2017-03-14 09:27 | DIAGNOSTIC IMAGING REPORT ---
CHEST ONE VIEW PORTABLE CLINICAL HISTORY: ogo tube tube position COMPARISON STUDY: 03/14/2017 5:26 AM FINDINGS: The left hemithorax is now opacified. Minimal infiltrative change right midlung. Endotracheal tube 2 cm both cory. Placement of a nasogastric tube which follows a somewhat tortuous course and most likely is inferior to the diaphragm the gastric fundus. IMPRESSION: 1. Interval opacification left hemithorax. 2. Cardiomediastinal silhouette shift to the left presumably on a compensatory basis. 3. Endotracheal tube 2 cm below the cory. 4. Nasogastric tube most likely within the gastric fundus Electronically signed by: Yobany Hernandez M.D. 03/14/2017 9:26 AM Dictated Date/Time: 03/14/2017 9:24 AM
--- NOTE | 2017-03-14 09:37 | Pharmacy Progress Note ---
Glycemic Control Intl Consult Date of Service Mar 14, 2017. Scope Glycemic Pharmacist consulted by Dr Birch on 03/14/17 for glycemic control and to write orders per [facility] inpatient glycemic control protocol Objective Weight (Kilograms): 95.300 Accuchecks BSG (last 24hrs): Test 03/14/17 04:36 03/14/17 05:11 Bedside Glucose 170 mg/dl (70-99) Random Glucose 172 mg/dl (70-99) Laboratory Data (last 24hrs) Test 03/14/17 05:11 03/14/17 08:00 Anion Gap -1.0 mmol/L BUN/Creatinine Ratio 11.9 Blood Urea Nitrogen 12 mg/dl Creatinine 1.00 mg/dl Potassium Level 5.9 mmol/L Sodium Level 137 mmol/L White Blood Count 11.64 K/uL Red Blood Count 3.97 M/uL Hemoglobin 9.6 g/dL Hematocrit 34.4 % Mean Corpuscular Volume 86.6 fL Mean Corpuscular Hemoglobin 24.2 pg Mean Corpuscular Hemoglobin Concent 27.9 g/dl Platelet Count 358 K/uL Mean Platelet Volume 9.6 fL Neutrophils (%) (Auto) 87.2 % Lymphocytes (%) (Auto) 6.4 % Monocytes (%) (Auto) 5.2 % Eosinophils (%) (Auto) 0.7 % Basophils (%) (Auto) 0.2 % Neutrophils # (Auto) 10.16 K/uL Lymphocytes # (Auto) 0.74 K/uL Monocytes # (Auto) 0.61 K/uL Eosinophils # (Auto) 0.08 K/uL Basophils # (Auto) 0.02 K/uL Recent Pertinent Medications Outpatient Anti-diabetic Regimen: * N/A The patient is currently receiving: * Basal insulin: Lantus 5 units X 1 per MD this AM Risk Factors for Insulin Resistance: * Steroids: Solumedrol 40 mg IV X 1 given this AM; no plans to continue steroids * Infection: Vancomycin + Zosyn for lung source * Diet: Initiating Tube feeds this AM * Mechanical Ventilation: YES Assessment & Plan ASSESSMENT: * 66 yo M admitted to ICU s/p respiratory failure/code blue * Pt now mechanically ventilated and initiated on Vancomycin/Zosyn for aspiration pneumonia * Solumedrol 40 mg IV X 1 given during code, but no plans to continue this AM * Overnight MD gave Lantus 5 units X 1 this AM for BSG 170 mg/dL * Patient is not a known diabetic, will follow up with A1c tomorrow * My plan will be to hold any further basal insulin until sustained BSGs >180 and continue with correctional Novolog only * Tube feeds to start today at trickle rate which may increase insulin needs- continue to monitor * ADA & AACE recommend a goal blood sugar range 140-180 mg/dl for the majority of critically ill & non-critically ill patients. However, more stringent targets may be selected in individual cases. PLAN FOR INPATIENT GLYCEMIC CONTROL: * Correctional Insulin with NOVOLOG per scale ACHS or Q6hrs while NPO * Goal Range: Low 140 mg/dL - High 180 mg/dL * Correction Factor: 25 mg/dL/unit * Nutritional / Prandial insulin per carb ratio of 1 unit per -- grams CHO consumed * Please note that the plan above was derived based on current level of insulin resistance and hospital stress. These recommendations are appropriate for inpatient admission only. Plan of care upon discharge will need to be reassessed to avoid potential outpatient hypo/hyperglycemia. Thank you.
[2017-03-14] MEDS: MIDAZOLAM HCL 1 MG/ML 2ML VIAL IV PRN ×3 (09:49→23:36)
[2017-03-14] MEDS: PIPERACILL/TAZOBAC IV 3.375 GM in DEXTROSE 5% 100ML IV SCH ×2 (09:49→18:16)
[2017-03-14] MEDS: MULTIVITAMINS W/MINERALS 15ML UDP NG SCH (09:49)
--- NOTE | 2017-03-14 10:51 | DIAGNOSTIC IMAGING REPORT ---
CHEST ONE VIEW PORTABLE CLINICAL HISTORY: low o2 COMPARISON STUDY: Chest CT 03/12/2017, Chest radiograph 03/11/2017 TECHNIQUE: Upright AP view of the chest. FINDINGS: A battery pack electronic device of the left hemithorax is redemonstrated. Cardiac silhouette is mildly enlarged. The lungs are hypoinflated. There is no pneumothorax. Small layering pleural effusions are present bilaterally. Large hiatal hernia is redemonstrated. There is mild pulmonary vascular congestion with scattered perihilar and left upper lobe alveolar opacities which have slightly progressed. Prior right shoulder arthroplasty. IMPRESSION: 1. Slight progression of alveolar opacities within the left upper lobe may reflect atelectasis or pneumonia. 2. Remainder of the exam appears unchanged. Electronically signed by: Marek Malhotra 03/14/2017 8:19 AM Dictated Date/Time: 03/14/2017 8:01 AM
[2017-03-14] MEDS: CARBIDOPA/LEVODOPA 25/100MG TAB NG SCH ×4 (11:18→20:11)
[2017-03-14] MEDS: FENTANYL CITRATE INJ 50 MCG/1 ML 2 ML VIAL IV PRN ×3 (11:35→23:36)
[2017-03-14] MEDS ORDERED: PROPOFOL IV EMULSION 10 MG/ML 100 ML VIAL IV ONE (12:45)
--- NOTE | 2017-03-14 13:44 | Procedure Note ---
Procedure Note Date of Service Mar 14, 2017. Procedure Note Procedure date: 03/14/2017 Procedure: fiberoptic bronchoscopy Pre-procedure Diagnosis: Respiratory failure, left lobe pneumonia Post-procedure Diagnosis: same as above Prior to Procedure: Informed Consent: The risks, benefits, indications, potential complications, and alternatives were explained to the patient/family and informed consent obtained. Attending Staff: Catrachita Birch DO Resident/APC: Not applicable Skin Prep: Not applicable Anesthesia: Continuous IV sedation Indications: Patient is a 66-year-old male with possible neurologic disorder breathing secondary to Parkinson's, and hypercarbic hypoxic respiratory failure who aspirated gastric contents while being on noninvasive ventilation.. The identity of the patient was confirmed and a bedside time out was performed. Description of Procedure: Fiberoptic bronchoscopy was performed via endotracheal tube. Bronchioalveolar lavage of the left lower lobe was performed. Findings included: Thick white purulent secretions in the left upper and lower lobes primarily. Right lung appeared grossly normal Complications: None Specimens: Bronchial washings sent for culture and Gram stain, cytology, fungal elements, and AFB stain and culture. Estimated blood loss: Zero
[2017-03-14] MEDS: FIBERSOURCE HN 1000ML BAG PO PRN ×2 (13:52)
[2017-03-14] MEDS ORDERED: NURSING VERBAL MED ORDER ONE (14:00)
[2017-03-14] MEDS ORDERED: ROCURONIUM BROMIDE 10 MG/ML 10 ML VIAL IV ONE (14:15)
[2017-03-14] MEDS ORDERED: FENTANYL CITRATE INJ 50 MCG/1 ML 2 ML VIAL IV ONE (14:15)
[2017-03-14] MEDS ORDERED: ACETAMINOPHEN IV 100 ML IV PRN (14:15)
--- NOTE | 2017-03-14 14:31 | Progress Note ---
Medicine Progress Note Date & Time of Visit: Mar 14, 2017 at 0900. Subjective 66 yo M with severe Parkinson's disease who is s/p shoulder surgery presenting with episodic hypotension and lightheadedness. He never became hypotensive during this admission, but was hypoxic and unable to be weaned off. He underwent a CT PE in light of bedbound status and recent shoulder surgery 8 weeks ago, which was negative for PE with some atelectasis present. The following morning, pulm saw him and an ABG revealed hypercapnia with a CO2 79. BIPAP was started but he couldn't tolerate so he was taken off. A few hours later he became agitated and trying to leave his room, puling off his oxygen, etc. A repeat ABG revealed persistent CO2 of 76 and he was given Ativan and put back on the BIPAP and made NPO. Around 8pm he was taken off BIPAP per resp and after one hour of normal mentation and proving he could swallow pills, the nurse requested food for him and he was allowed to eat. Later that night he was put back on the BIPAP and vomited with aspiration and subsequent intubation. He remains in the ICU and is awake off sedation. Plan is for bronchoscopy. -unable to obtain ROS today as pt intubated, however, he shakes his head no when asked if in pain -he is able to squeeze my fingers on command. Objective Last 8 Hrs Date Time Temp Pulse Resp B/P (MAP) Pulse Ox O2 Delivery O2 Flow Rate FiO2 03/14/17 13:50 38.4 03/14/17 11:40 36.7 96 20 135/77 (96) 96 Mechanical Ventilator 100 03/14/17 11:30 100 03/14/17 11:30 Mechanical Ventilator 100 03/14/17 11:30 100 03/14/17 10:00 94 20 104/76 92 03/14/17 09:31 92 20 113/61 92 03/14/17 09:30 110 20 83 03/14/17 09:30 35.5 89 20 158/101 (120) 96 Mechanical Ventilator 100 03/14/17 09:01 91 20 99/61 91 03/14/17 09:00 97 20 92 03/14/17 08:31 85 20 110/73 93 03/14/17 08:30 87 20 90 03/14/17 08:01 94 20 155/100 03/14/17 08:00 86 20 03/14/17 07:31 88 20 173/107 96 03/14/17 07:30 37.1 89 20 166/118 (134) 96 Mechanical Ventilator 100 03/14/17 07:30 77 20 99 03/14/17 07:30 100 03/14/17 07:30 100 Mechanical Ventilator 4.0 100 03/14/17 07:30 Mechanical Ventilator 100 03/14/17 07:10 100 03/14/17 07:01 94 20 166/118 100 03/14/17 07:00 87 20 100 Physical Exam: GEN: intubated, partially sedated, WNWD in no acute distress HEENT: NC/AT, ETT in place CARDIO: reg rate, S1/2 heard without m/g/r LUNGS: crackles heard bilaterally ABD: soft, non-tender, non-distended, no rebound or guarding, +BS EXTREMITY: warm and well-perfused SKIN: warm and dry Laboratory Results: 03/14/17 05:11 Red Blood Count 3.97, Mean Corpuscular Volume 86.6 #, Mean Corpuscular Hemoglobin 24.2, Mean Corpuscular Hemoglobin Concent 27.9, Mean Platelet Volume 9.6, Neutrophils (%) (Auto) 87.2, Lymphocytes (%) (Auto) 6.4, Monocytes (%) ( Auto) 5.2, Eosinophils (%) (Auto) 0.7, Basophils (%) (Auto) 0.2, Neutrophils # ( Auto) 10.16, Lymphocytes # (Auto) 0.74, Monocytes # (Auto) 0.61, Eosinophils # ( Auto) 0.08, Basophils # (Auto) 0.02 03/14/17 05:11 03/14/17 11:15 Test 03/11/17 10:35 03/11/17 10:36 03/11/17 16:05 03/11/17 16:06 Prothrombin Time 12.0 SECONDS (9.0-12.0) Prothromb Time International Ratio 1.1 (0.9-1.1) Total Bilirubin 0.5 mg/dl (0.2-1) Aspartate Amino Transf (AST/SGOT) 27 U/L (15-37) Alanine Aminotransferase (ALT/SGPT) 11 U/L (12-78) Alkaline Phosphatase 78 U/L (45-117) Total Protein 6.8 gm/dl (6.4-8.2) Albumin 3.1 gm/dl (3.4-5.0) Globulin 3.7 gm/dl (2.5-4.0) Albumin/Globulin Ratio 0.8 (0.9-2) Urine Color YELLOW Urine Appearance CLEAR (CLEAR) Urine pH 7.0 (4.5-7.5) Urine Specific [place] 1.015 (1.000-1.030) Urine Protein 2+ (NEG) Urine Glucose (UA) NEG (NEG) Urine Ketones NEG (NEG) Urine Occult Blood NEG (NEG) Urine Nitrite NEG (NEG) Urine Bilirubin NEG (NEG) Urine Urobilinogen NEG (NEG) Urine Leukocyte Esterase NEG (NEG) Urine WBC (Auto) 5-10 /hpf (0-5) Urine RBC (Auto) 0-4 /hpf (0-4) Urine Hyaline Casts (Auto) 5-10 /lpf (0-5) Urine Epithelial Cells (Auto) 10-20 /lpf (0-5) Urine Bacteria (Auto) NEG (NEG) Urine Renal Epithelial Cells /lpf (0-5) Urine Crystals CALCIUM OXALATE (NONE Urine Pathogenic Casts /lpf (0) Urine Mucus PRESENT (NONE PRSENT) Absolute Reticulocyte Count 0.04 10^6/uL (0.02-0.10) Percent Reticulocyte Count 0.9 % (0.5-2.0) Iron Level 13 mcg/dl (35-175) Total Iron Binding Capacity 375 mcg/dl (250-450) Transferrin 272 mg/dl (200-360) Transferrin % Saturation 3 % (20-50) Ferritin 14.2 ng/ml (8.0-388.0) Vitamin B12 Level 1355 pg/mL (211-911) Folate > 24.00 ng/mL (>5.38) Test 03/11/17 22:00 03/11/17 22:18 03/12/17 12:07 03/13/17 15:41 Creatine Kinase MB Ratio (0-3.0) Creatine Kinase MB 3.0 ng/ml (0.5-3.6) Troponin I 0.042 ng/ml (0-0.045) D-Dimer 1370 ug/L FEU (0-500) Arterial Blood pH 7.34 (7.35-7.45) Arterial Blood Partial Pressure CO2 76 mmHg (35-46) Arterial Blood Partial Pressure O2 55 mm/Hg (80-95) Arterial Blood HCO3 40 mmol/L (19-24) Arterial Blood Oxygen Saturation 85.5 % (90-95) Arterial Blood Base Excess 12.5 mEq/L (-9-1.8) Arterial Blood Gas Delivery 2 LITERS O2 Luigi Test POS (POS) Test 03/14/17 05:11 03/14/17 06:01 03/14/17 09:23 White Blood Count 11.64 K/uL (4.8-10.8) Red Blood Count 3.97 M/uL (4.7-6.1) Hemoglobin 9.6 g/dL (14.0-18.0) Hematocrit 34.4 % (42-52) Mean Corpuscular Volume 86.6 fL (80-100) Mean Corpuscular Hemoglobin 24.2 pg (25-34) Mean Corpuscular Hemoglobin Concent 27.9 g/dl (32-36) Platelet Count 358 K/uL (130-400) Mean Platelet Volume 9.6 fL (7.4-10.4) Neutrophils (%) (Auto) 87.2 % Lymphocytes (%) (Auto) 6.4 % Monocytes (%) (Auto) 5.2 % Eosinophils (%) (Auto) 0.7 % Basophils (%) (Auto) 0.2 % Neutrophils # (Auto) 10.16 K/uL (1.4-6.5) Lymphocytes # (Auto) 0.74 K/uL (1.2-3.4) Monocytes # (Auto) 0.61 K/uL (0.11-0.59) Eosinophils # (Auto) 0.08 K/uL (0-0.5) Basophils # (Auto) 0.02 K/uL (0-0.2) RDW Standard Deviation 51.2 fL (36.4-46.3) RDW Coefficient of Variation 16.0 % (11.5-14.5) Immature Granulocyte % (Auto) 0.3 % Immature Granulocyte # (Auto) 0.03 K/uL (0.00-0.02) Polychromasia 1+ Hypochromasia PRESENT Basophilic Stippling 1+ Anisocytosis PRESENT Stomatocytes 1+ Activated Partial Thromboplast Time 26.3 SECONDS (21.0-31.0) Partial Thromboplastin Ratio 1.0 Anion Gap -1.0 mmol/L (3-11) Est Creatinine Clear Calc Drug Dose 81.5 ml/min Estimated GFR () 91.8 Estimated GFR (Non- 79.2 BUN/Creatinine Ratio 11.9 (10-20) Calcium Level 8.2 mg/dl (8.5-10.1) Magnesium Level 2.5 mg/dl (1.8-2.4) Blood Gas Sample Site R Radial Bedside Blood Gas pH (LAB) 7.36 (7.35-7.45) Bedside Blood Gas pCO2 (LAB) 71 mmHg (35-46) Bedside Blood Gas pO2 (LAB) 61 mmHg (80-95) Bedside Blood Gas HCO3 (LAB) 40 meq/L (19-24) Bedside Blood Gas Total CO2 > 40 mEq/l (24-31) Bedside Blood Gas Base Excess (LAB) 15.0 meq/L (-9-1.8) Bedside Blood Gas O2 Saturation 89.0 % (90-95) Luigi Test Pass Oxygen Delivery Device Ventilator Bedside Oxygen Rate (breaths/min) 20 Blood Gas Minute Ventilation 9.5 Bedside FiO2 80 % Blood Gas Tidal Volume 500 Blood Gas PEEP 5 Lactic Acid Level 0.8 mmol/L (0.4-2.0) Bedside Glucose 131 mg/dl (70-99) Date/Time Source Procedure Growth Status 03/14/17 06:01 Blood Blood Culture Pending Received 03/14/17 05:19 Nasal MRSA DNA Surveillance Screen - Final Specimen Positive for MRSA by DNA Probe Complete 03/14/17 00:00 Bronchial Washings Left Lower Lobe Acid Fast Stain Pending Received 03/14/17 00:00 Bronchial Washings Left Lower Lobe Mycobacterial Culture Pending Received Last 24 Hours Test 03/13/17 15:41 03/14/17 04:36 03/14/17 05:11 03/14/17 06:01 Arterial Blood pH 7.34 Arterial Blood Partial Pressure CO2 76 mmHg Arterial Blood Partial Pressure O2 55 mm/Hg Arterial Blood HCO3 40 mmol/L Arterial Blood Oxygen Saturation 85.5 % Arterial Blood Base Excess 12.5 mEq/L Arterial Blood Gas Delivery 2 LITERS O2 Luigi Test POS Pass Bedside Glucose 170 mg/dl White Blood Count 11.64 K/uL Red Blood Count 3.97 M/uL Hemoglobin 9.6 g/dL Hematocrit 34.4 % Mean Corpuscular Volume 86.6 fL Mean Corpuscular Hemoglobin 24.2 pg Mean Corpuscular Hemoglobin Concent 27.9 g/dl Platelet Count 358 K/uL Mean Platelet Volume 9.6 fL Neutrophils (%) (Auto) 87.2 % Lymphocytes (%) (Auto) 6.4 % Monocytes (%) (Auto) 5.2 % Eosinophils (%) (Auto) 0.7 % Basophils (%) (Auto) 0.2 % Neutrophils # (Auto) 10.16 K/uL Lymphocytes # (Auto) 0.74 K/uL Monocytes # (Auto) 0.61 K/uL Eosinophils # (Auto) 0.08 K/uL Basophils # (Auto) 0.02 K/uL RDW Standard Deviation 51.2 fL RDW Coefficient of Variation 16.0 % Immature Granulocyte % (Auto) 0.3 % Immature Granulocyte # (Auto) 0.03 K/uL Polychromasia 1+ Hypochromasia PRESENT Basophilic Stippling 1+ Anisocytosis PRESENT Stomatocytes 1+ Activated Partial Thromboplast Time 26.3 SECONDS Partial Thromboplastin Ratio 1.0 Sodium Level 137 mmol/L Potassium Level 5.9 mmol/L Chloride Level 95 mmol/L Carbon Dioxide Level 43 mmol/L Anion Gap -1.0 mmol/L Blood Urea Nitrogen 12 mg/dl Creatinine 1.00 mg/dl Est Creatinine Clear Calc Drug Dose 81.5 ml/min Estimated GFR () 91.8 Estimated GFR (Non- 79.2 BUN/Creatinine Ratio 11.9 Random Glucose 172 mg/dl Calcium Level 8.2 mg/dl Magnesium Level 2.5 mg/dl Blood Gas Sample Site R Radial Bedside Blood Gas pH (LAB) 7.36 Bedside Blood Gas pCO2 (LAB) 71 mmHg Bedside Blood Gas pO2 (LAB) 61 mmHg Bedside Blood Gas HCO3 (LAB) 40 meq/L Bedside Blood Gas Total CO2 > 40 mEq/l Bedside Blood Gas Base Excess (LAB) 15.0 meq/L Bedside Blood Gas O2 Saturation 89.0 % Oxygen Delivery Device Ventilator Bedside Oxygen Rate (breaths/min) 20 Blood Gas Minute Ventilation 9.5 Bedside FiO2 80 % Blood Gas Tidal Volume 500 Blood Gas PEEP 5 Lactic Acid Level 0.8 mmol/L Test 03/14/17 09:23 03/14/17 11:15 Bedside Glucose 131 mg/dl Potassium Level 4.8 mmol/L Date/Time Source Procedure Growth Status 03/14/17 06:01 Blood Blood Culture Pending Received 03/14/17 05:58 Blood Blood Culture Pending Received 03/14/17 05:19 Nasal MRSA DNA Surveillance Screen - Final Specimen Positive for MRSA by DNA Probe Complete 03/14/17 00:00 Bronchial Washings Left Lower Lobe Acid Fast Stain Pending Received 03/14/17 00:00 Bronchial Washings Left Lower Lobe Mycobacterial Culture Pending Received 03/14/17 00:00 Bronchial Washings Left Lower Lobe Gram Stain Pending Received 03/14/17 00:00 Bronchial Washings Left Lower Lobe Bronchoalveolar Lavage Culture Pending Received Diagnostic Imaging: CHEST ONE VIEW PORTABLE CLINICAL HISTORY: ogo tube tube position COMPARISON STUDY: 03/14/2017 5:26 AM FINDINGS: The left hemithorax is now opacified. Minimal infiltrative change right midlung. Endotracheal tube 2 cm both cory. Placement of a nasogastric tube which follows a somewhat tortuous course and most likely is inferior to the diaphragm the gastric fundus. IMPRESSION: 1. Interval opacification left hemithorax. 2. Cardiomediastinal silhouette shift to the left presumably on a compensatory basis. 3. Endotracheal tube 2 cm below the cory. 4. Nasogastric tube most likely within the gastric fundus Assessment & Plan 66 yo M with severe Parkinson's disease who is s/p shoulder surgery presenting with episodic hypotension and lightheadedness. He never became hypotensive during this admission, but was hypoxic and unable to be weaned off. He underwent a CT PE in light of bedbound status and recent shoulder surgery 8 weeks ago, which was negative for PE with some atelectasis present. The following morning, pulm saw him and an ABG revealed hypercapnia with a CO2 79. BIPAP was started but he couldn't tolerate so he was taken off. A few hours later he became agitated and trying to leave his room, puling off his oxygen, etc. A repeat ABG revealed persistent CO2 of 76 and he was given Ativan and put back on the BIPAP and made NPO. Around 8pm he was taken off BIPAP per resp and after one hour of normal mentation and proving he could swallow pills, the nurse requested food for him and he was allowed to eat. Later that night he was put back on the BIPAP and vomited with aspiration and subsequent intubation. He remains in the ICU and is awake off sedation. Plan is for bronchoscopy. 1. Acute hypercarbic respiratory failure-pt remains intubated in the ICU. With recent aspiration, the plan is for him to undergo a bronch later today Cont per ICU team. 2. Aspiration pneumonia-cont ventilatory support and Vanc, Zosyn per ICU team. 3. Hypertension-off antihypertensives at this time and on sedation in ICU. Cont to monitor. 4. Elevated troponin-mild elevation that resolved to normal levels. TTE performed this admission with no acute wall motion abnormalities. 5. Microcytic anemia-iron deficient on labwork. Iron supplementation was started this admission but held in light of intubation. Needs outpatient follow -up. 6. Parkinson's-chronic, stable, cont Sinemet and Requip. DVT PROPHYLAXIS - SQ Lovenox GI prophylaxis -Pepcid CODE STATUS: FULL DISPO-cont ICU while intubated. DO [facility] Hospitalist Consultants: Pulm, ICU Current Inpatient Medications: Current Inpatient Medications Medications (Trade) Dose Ordered Sig/Luz Route Start Time Stop Time Status Last Admin Dose Admin Enoxaparin Sodium (Lovenox Inj) 40 mg Q24H SC 03/11/17 21:00 04/10/17 20:59 03/13/17 20:35 40 MG Lorazepam (Ativan Inj) 1 mg UD PRN IV 03/14/17 05:30 04/13/17 05:29 03/14/17 13:01 1 MG Famotidine 20 mg/ Dextrose 102 ml @ 200 mls/hr Q12@0600,1800 IV 03/14/17 06:00 04/13/17 05:59 03/14/17 05:53 200 MLS/HR Piperacillin Sod/ Tazobactam Sod (Consult) 1 ea UD PRN N/A 03/14/17 05:30 04/13/17 05:29 Levalbuterol (Xopenex Hfa Inhaler) 4 puffs Q6R INH 03/14/17 06:00 04/13/17 05:59 03/14/17 07:19 4 PUFFS Ipratropium [place] (Atrovent Hfa Inhaler) 4 puffs Q6R INH 03/14/17 06:00 04/13/17 05:59 03/14/17 07:19 4 PUFFS Vancomycin HCl 1500 mg/Sodium Chloride 530 ml @ 200 mls/hr Q12H IV 03/14/17 18:00 03/21/17 17:59 Vancomycin HCl (Consult) 1 ea UD PRN N/A 03/14/17 06:00 04/13/17 05:59 Carbidopa/Levodopa (Sinemet 25/ 100MG Tab) 1.5 tab 0500,0800,1100,1400,1700 NG 03/14/17 11:00 04/10/17 10:59 03/14/17 11:18 1.5 TAB Ropinirole HCl (Requip Tab) 4 mg QID@0500,0900,1300,1700 NG 03/14/17 09:00 04/11/17 12:59 03/14/17 07:58 4 MG Carbidopa/Levodopa (Sinemet 25/ 100MG Tab) 1 tab HS NG 03/14/17 21:00 04/13/17 20:59 Piperacillin Sod/ Tazobactam Sod 3.375 gm/Dextrose 115 ml @ 28.75 mls/ hr Q8H IV 03/14/17 10:00 03/21/17 09:59 03/14/17 09:49 28.75 MLS/HR Ropinirole HCl (Requip Tab) 6 mg HS NG 03/14/17 21:00 04/13/17 20:59 Enteral Nutritional Formula (Fibersource HN) 1,000 ml DAILY PRN PO 03/14/17 09:00 04/13/17 08:59 03/14/17 13:52 1,000 ML Insulin Aspart (novoLOG ASPART) SLIDING SCALE Q6 SC 03/14/17 09:00 04/13/17 08:59 Glucose (Glucose 40% Gel) 15-30 GRAMS 15 GRAMS... UD PRN PO 03/14/17 08:45 04/13/17 08:44 Glucose (Glucose Chew Tab) 4-8 Tablets 4 Tabl... UD PRN PO 03/14/17 08:45 04/13/17 08:44 Dextrose (Dextrose 50% 50ML Syringe) 25-50ML OF 50% DW IV FOR... UD PRN IV 03/14/17 08:45 04/13/17 08:44 Glucagon (Glucagon Inj) 1 mg UD PRN SQ 03/14/17 08:45 04/13/17 08:44 Miscellaneous Information (Consult Glycemic Management Pharmacy) 1 ea UD PRN N/A 03/14/17 08:42 04/13/17 08:41 Multivitamins Therapeutic (Cerovite Liquid) 15 ml QAM NG 03/14/17 09:00 04/13/17 08:59 03/14/17 09:49 15 ML Midazolam HCl (Versed Inj) 2 mg Q2H PRN IV 03/14/17 09:00 04/13/17 08:59 03/14/17 11:17 2 MG Fentanyl Citrate (Fentanyl Inj) 50 mcg Q2H PRN IV 03/14/17 09:00 03/28/17 08:59 03/14/17 11:35 50 MCG Propofol (Diprivan Iv Emulsion 100ml Vial) 1 dose UD IV 03/14/17 13:30 03/17/17 13:29 Acetaminophen 100 ml @ 400 mls/hr Q8H PRN IV 03/14/17 14:15 04/13/17 14:14 UNV
[2017-03-14] MEDS: PROPOFOL IV EMULSION 10 MG/ML 100 ML VIAL IV SCH (15:28)
--- NOTE | 2017-03-14 15:59 | Critical Care Consultation ---
Critical Care Consultation Date of Consultation: Mar 14, 2017. Attending Physician: Estephania Garber DO Reason for Consultation: Hypoxic hypercarbic respiratory failure requiring intubation, aspiration History of Present Illness History is as obtained from prior medical records and the attending hospitalist. Patient is a 66-year-old male with significant past medical history of end- stage Parkinson's disease status post deep brain stimulator. The patient underwent right shoulder surgery about 8 weeks ago. He was seen by his primary care physician about one week ago and placed on Cipro, however he had a culture negative urinalysis and this was stopped. She reported that he has not ambulated in 6 months due to right shoulder problems and underwent surgery in hopes to start walking again. He presents to the emergency department because he felt lightheaded and dizzy and had a low systolic blood pressure in the 70s. Normally his blood pressure had been running high up into the 170s systolic. While in the hospital he was found to have hypoxic respiratory failure. He had bilateral basilar atelectasis, elevated carbon dioxide on his basic metabolic panel, wheezing on exam, and possible aspiration secondary to Parkinson's disease. Patient received a CTA which largely ruled out pulmonary embolism, pulmonary [place] he has an irregular breathing pattern. Structural lung disease cannot be excluded at this time. Patient was placed on noninvasive ventilation overnight. Nose report that the BiPAP had to be removed at approximately 12:45 AM after an episode of emesis. Ultimately patient was a CODE BLUE secondary to respiratory arrest at approximately 0440 this morning. He was transferred to the ICU for further stabilization. I have reviewed the chest x-ray, in the interval and OG tube had been placed and a repeat chest x- ray was performed, findings indicated worsening atelectasis and infiltrates of the left lung field. Patient underwent a bronchoscopy for mucous removal and organism identification Family History Diabetes mellitus MOTHER FH: asthma FATHER FH: prostate cancer FATHER Hypertension FATHER SISTER Kidney disease Kidney stones Social History Smoking Status: Former Smoker Alcohol Use: none Marital Status: Housing Status: lives with family Allergies Coded Allergies: Sulindac (Verified Adverse Reaction, Intermediate, STOMACH IRRATION, ) Home Medications Scheduled Carbidopa/Levodopa (Sinemet 25MG/100MG), 1.5 TAB PO 5XD Clonazepam (Klonopin), 1 MG PO HS Cyanocobalamin (Vitamin B-12 1000 Mcg), 1,000 MCG PO DAILY Fish Oil (Fish Oil), 1 GM PO DAILY Lactobacillus Acidophilus (Lactinex), 1 TAB PO BID Levodopa/Carbidopa (Sinemet Cr 25MG/100MG), 1 TAB PO HS Lisinopril (Zestril), 10 MG PO DAILY Metoprolol Tartrate (Lopressor) (Lopressor), 25 MG PO BID Niacin (Niacin), 500 MG PO DAILY Omeprazole (Prilosec), 20 MG PO DAILY Ropinirole (Requip), 4 MG PO QID Ropinirole Hydrochloride (Requip Xl), 12 MG PO HS Tamsulosin HCl (Tamsulosin HCl), 0.4 MG PO HS Current Inpatient Medications Current Inpatient Medications Medications (Trade) Dose Ordered Sig/Luz Route Start Time Stop Time Status Last Admin Dose Admin Enoxaparin Sodium (Lovenox Inj) 40 mg Q24H SC 03/11/17 21:00 04/10/17 20:59 03/13/17 20:35 40 MG Lorazepam (Ativan Inj) 1 mg UD PRN IV 03/14/17 05:30 04/13/17 05:29 03/14/17 13:01 1 MG Famotidine 20 mg/ Dextrose 102 ml @ 200 mls/hr Q12@0600,1800 IV 03/14/17 06:00 04/13/17 05:59 03/14/17 05:53 200 MLS/HR Piperacillin Sod/ Tazobactam Sod (Consult) 1 ea UD PRN N/A 03/14/17 05:30 04/13/17 05:29 Levalbuterol (Xopenex Hfa Inhaler) 4 puffs Q6R INH 03/14/17 06:00 04/13/17 05:59 03/14/17 13:25 4 PUFFS Ipratropium Rosalie (Atrovent Hfa Inhaler) 4 puffs Q6R INH 03/14/17 06:00 04/13/17 05:59 03/14/17 13:25 4 PUFFS Vancomycin HCl 1500 mg/Sodium Chloride 530 ml @ 200 mls/hr Q12H IV 03/14/17 18:00 03/21/17 17:59 Vancomycin HCl (Consult) 1 ea UD PRN N/A 03/14/17 06:00 04/13/17 05:59 Carbidopa/Levodopa (Sinemet 25/ 100MG Tab) 1.5 tab 0500,0800,1100,1400,1700 NG 03/14/17 11:00 04/10/17 10:59 03/14/17 14:57 1.5 TAB Ropinirole HCl (Requip Tab) 4 mg QID@0500,0900,1300,1700 NG 03/14/17 09:00 04/11/17 12:59 03/14/17 14:58 4 MG Carbidopa/Levodopa (Sinemet 25/ 100MG Tab) 1 tab HS NG 03/14/17 21:00 04/13/17 20:59 Piperacillin Sod/ Tazobactam Sod 3.375 gm/Dextrose 115 ml @ 28.75 mls/ hr Q8H IV 03/14/17 10:00 03/21/17 09:59 03/14/17 09:49 28.75 MLS/HR Ropinirole HCl (Requip Tab) 6 mg HS NG 03/14/17 21:00 04/13/17 20:59 Enteral Nutritional Formula (Fibersource HN) 1,000 ml DAILY PRN PO 03/14/17 09:00 04/13/17 08:59 03/14/17 13:52 1,000 ML Insulin Aspart (novoLOG ASPART) SLIDING SCALE Q6 SC 03/14/17 09:00 04/13/17 08:59 Glucose (Glucose 40% Gel) 15-30 GRAMS 15 GRAMS... UD PRN PO 03/14/17 08:45 04/13/17 08:44 Glucose (Glucose Chew Tab) 4-8 Tablets 4 Tabl... UD PRN PO 03/14/17 08:45 04/13/17 08:44 Dextrose (Dextrose 50% 50ML Syringe) 25-50ML OF 50% DW IV FOR... UD PRN IV 03/14/17 08:45 04/13/17 08:44 Glucagon (Glucagon Inj) 1 mg UD PRN SQ 03/14/17 08:45 04/13/17 08:44 Miscellaneous Information (Consult Glycemic Management Pharmacy) 1 ea UD PRN N/A 03/14/17 08:42 04/13/17 08:41 Multivitamins Therapeutic (Cerovite Liquid) 15 ml QAM NG 03/14/17 09:00 8/2/17 08:59 03/14/17 09:49 15 ML Midazolam HCl (Versed Inj) 2 mg Q2H PRN IV 03/14/17 09:00 04/13/17 08:59 03/14/17 11:17 2 MG Fentanyl Citrate (Fentanyl Inj) 50 mcg Q2H PRN IV 03/14/17 09:00 03/28/17 08:59 03/14/17 11:35 50 MCG Propofol (Diprivan Iv Emulsion 100ml Vial) 1 dose UD IV 03/14/17 13:30 03/17/17 13:29 03/14/17 15:28 1 DOSE Acetaminophen 100 ml @ 400 mls/hr Q8H PRN IV 03/14/17 14:15 04/13/17 14:14 03/14/17 14:49 400 MLS/HR Review of Systems Unable to be obtained secondary to patient condition Physical Exam Date Time Temp Pulse Resp B/P (MAP) Pulse Ox O2 Delivery O2 Flow Rate FiO2 03/14/17 15:35 70 03/14/17 14:35 87 20 100 03/14/17 14:30 88 20 116/71 100 03/14/17 14:20 86 20 100 03/14/17 14:15 86 20 115/71 100 03/14/17 14:05 90 20 99 03/14/17 14:05 100 03/14/17 14:00 88 20 110/64 99 03/14/17 13:50 38.4 03/14/17 13:50 89 20 99 03/14/17 13:45 88 20 106/65 99 03/14/17 13:40 86 20 104/63 99 03/14/17 13:26 88 20 103/60 100 03/14/17 13:23 91 20 103/55 100 03/14/17 13:20 89 4 87/54 03/14/17 13:18 96 20 117/69 100 03/14/17 13:15 103 20 96/66 98 03/14/17 13:14 95 20 105/62 99 03/14/17 13:11 94 20 120/70 98 03/14/17 13:08 100 20 111/58 98 03/14/17 13:00 88 20 98 03/14/17 12:51 93 20 134/76 97 03/14/17 12:45 98 20 96 03/14/17 12:30 94 20 139/86 95 03/14/17 12:15 89 20 96 03/14/17 12:00 95 20 134/80 96 03/14/17 11:45 92 20 96 03/14/17 11:40 36.7 96 20 135/77 (96) 96 Mechanical Ventilator 100 03/14/17 11:31 93 14 138/84 95 03/14/17 11:30 100 03/14/17 11:30 Mechanical Ventilator 100 03/14/17 11:30 90 14 99 03/14/17 11:30 100 03/14/17 10:00 94 20 104/76 92 03/14/17 09:31 92 20 113/61 92 03/14/17 09:30 110 20 83 03/14/17 09:30 35.5 89 20 158/101 (120) 96 Mechanical Ventilator 100 03/14/17 09:01 91 20 99/61 91 03/14/17 09:00 97 20 92 03/14/17 08:31 85 20 110/73 93 03/14/17 08:30 87 20 90 03/14/17 08:01 94 20 155/100 03/14/17 08:00 86 20 03/14/17 07:31 88 20 173/107 96 03/14/17 07:30 37.1 89 20 166/118 (134) 96 Mechanical Ventilator 100 03/14/17 07:30 77 20 99 03/14/17 07:30 100 03/14/17 07:30 100 Mechanical Ventilator 4.0 100 03/14/17 07:30 Mechanical Ventilator 100 03/14/17 07:10 100 03/14/17 07:01 94 20 166/118 100 03/14/17 07:00 87 20 100 03/14/17 06:04 97 20 147/92 100 03/14/17 05:39 110 20 102/68 100 03/14/17 05:20 80 03/14/17 05:14 36.6 116 20 79/50 (60) 99 Mechanical Ventilator 80 63/43 (50) 03/14/17 04:50 102 92 80 03/14/17 04:50 102 14 92 BiPAP/CPAP 80 03/14/17 04:04 35.5 102 22 135/61 (85) 86 Nasal Cannula 4.0 03/14/17 03:47 37.2 112 18 135/61 (85) 80 Nasal Cannula 3.0 03/14/17 00:30 96 BiPAP 03/14/17 00:18 36.9 67 18 130/65 (86) 94 BiPAP 03/13/17 23:24 72 95 40 03/13/17 20:00 96 BiPAP 03/13/17 19:35 73 94 40 03/13/17 19:34 73 30 94 BiPAP/CPAP 40 03/13/17 19:18 36.8 80 24 159/81 (107) 96 BiPAP 03/13/17 16:00 Nasal Cannula 2.0 BiPAP 03/13/17 15:56 36.5 88 24 119/72 (88) 100 Nasal Cannula 2.0 General Appearance: WD/WN, uncomfortable Head: normocephalic, atraumatic Eyes: PERRLA ENT: other (endotracheal tube present) Respiratory: rhonchi, other (dullness and crackles in left lung field) Cardiovasular: irregular rate (tachycardic) Abdomen: non tender, no masses Genitourinary - Male: other (Oliver present) Neuro: alert (not following commands GCS 9T) Laboratory Results Last 24 Hours Test 03/14/17 04:36 03/14/17 05:11 03/14/17 06:01 03/14/17 09:23 Bedside Glucose 170 mg/dl 131 mg/dl White Blood Count 11.64 K/uL Red Blood Count 3.97 M/uL Hemoglobin 9.6 g/dL Hematocrit 34.4 % Mean Corpuscular Volume 86.6 fL Mean Corpuscular Hemoglobin 24.2 pg Mean Corpuscular Hemoglobin Concent 27.9 g/dl Platelet Count 358 K/uL Mean Platelet Volume 9.6 fL Neutrophils (%) (Auto) 87.2 % Lymphocytes (%) (Auto) 6.4 % Monocytes (%) (Auto) 5.2 % Eosinophils (%) (Auto) 0.7 % Basophils (%) (Auto) 0.2 % Neutrophils # (Auto) 10.16 K/uL Lymphocytes # (Auto) 0.74 K/uL Monocytes # (Auto) 0.61 K/uL Eosinophils # (Auto) 0.08 K/uL Basophils # (Auto) 0.02 K/uL RDW Standard Deviation 51.2 fL RDW Coefficient of Variation 16.0 % Immature Granulocyte % (Auto) 0.3 % Immature Granulocyte # (Auto) 0.03 K/uL Polychromasia 1+ Hypochromasia PRESENT Basophilic Stippling 1+ Anisocytosis PRESENT Stomatocytes 1+ Activated Partial Thromboplast Time 26.3 SECONDS Partial Thromboplastin Ratio 1.0 Sodium Level 137 mmol/L Potassium Level 5.9 mmol/L Chloride Level 95 mmol/L Carbon Dioxide Level 43 mmol/L Anion Gap -1.0 mmol/L Blood Urea Nitrogen 12 mg/dl Creatinine 1.00 mg/dl Est Creatinine Clear Calc Drug Dose 81.5 ml/min Estimated GFR () 91.8 Estimated GFR (Non- 79.2 BUN/Creatinine Ratio 11.9 Random Glucose 172 mg/dl Calcium Level 8.2 mg/dl Magnesium Level 2.5 mg/dl Blood Gas Sample Site R Radial Bedside Blood Gas pH (LAB) 7.36 Bedside Blood Gas pCO2 (LAB) 71 mmHg Bedside Blood Gas pO2 (LAB) 61 mmHg Bedside Blood Gas HCO3 (LAB) 40 meq/L Bedside Blood Gas Total CO2 > 40 mEq/l Bedside Blood Gas Base Excess (LAB) 15.0 meq/L Bedside Blood Gas O2 Saturation 89.0 % Luigi Test Pass Oxygen Delivery Device Ventilator Bedside Oxygen Rate (breaths/min) 20 Blood Gas Minute Ventilation 9.5 Bedside FiO2 80 % Blood Gas Tidal Volume 500 Blood Gas PEEP 5 Lactic Acid Level 0.8 mmol/L Test 03/14/17 11:15 Potassium Level 4.8 mmol/L Diagnostic Results I reviewed the x-rays dated 03/14/2017 as well as the independent radiology report, I reviewed the report for the venous Doppler study as well as the CTA dated 03/12/2017. I have reviewed the echo results from this admission. Assessment & Plan Reason Critically Ill: Hypoxic respiratory failure PLAN: Neuro: Severe Parkinson's disease * Continue Parkinson's medication * Immediate release form ordered via OG tube Resp: Hypoxic respiratory failure with hypercarbia * I suspect there is a chronic component to this given the elevation of the bicarbonate * I suspect there is a neuromuscular component * Broad-spectrum antibiotics to cover aspiration organisms * Bronchoscopy today, weaning FiO2 and ventilatory requirements * Patient at increased risk for a tracheostomy given a neuromuscular disease CV: Sinus tachycardia on monitor for arrhythmias Fluids/Renal: Monitor GFR, hyaline casts seen on UA. * Potassium rechecked and was 4.8 within normal limits, suspect technique of lab draw causing air previously ID: Left lobe pneumonia, probable aspiration * Continue Zosyn and vancomycin GI/Nutrition: Start tube feeds and continue oral medications * Fiber source 1.2, goal 45 ML's Heme: Microcytic anemia, likely anemia of chronic disease reviewed anemia studies * DVT prophylaxis with Lovenox 40 mg Endocrine: Patient given one time dose of steroids, will hold additional steroids at this point CODE STATUS: Full resuscitation I have personally spent 65 minutes of critical care time in the direct management of this patient. This is a life/limb threatening event. This includes time spent evaluating patient, direct bedside care, chart review, placing orders, interpretation of diagnostic studies, discussion with consultants, patient, and family members, as well as other required patient management activities. This time is exclusive of all separately billable procedures, and teaching time and separate from and in addition to any other critical care service time.
--- NOTE | 2017-03-14 16:24 | Critical Care Progress Note ---
Critical Care Progress Note Date of Service Mar 14, 2017. ICU Day ICU Day Number: [address] Birch Subjective No significant complaint, no chest pain feels much improved compared to yesterday Objective General: Well-nourished well-developed HEENT: Pupils are equally round and reactive to light, no scleral icterus, oral mucosa moist. Neck: No adenopathy, no bruits Heart: regular, no murmurs noted Abdomen: No hepatosplenomegaly, no tenderness to palpation Neuro: CAM assessment is negative Current SOFA Score SOFA Score Response (Comments) Value SaO2 / FIO2 221 - 301 1 Platelets (x10) > 150 0 Bilirubin (mg/dL) < 1.2 0 Chema Coma Score 15 0 Level of Hypotension No Hypotension 0 Creatinine (mg/dL) < 1.2 0 Total 1 Assessment & Plan Plan: Neuro: Morphine for pain. Continue neuro checks. Pulmonary: Significant improvement with treatments yesterday, doubts pneumonia higher in the differential is acute flash pulmonary edema Cardiovascular: Went to the [facility] with cardiology, concern for worsening disease. Cardiology will attempt to transfer to higher level of care. Infectious disease: The procalcitonin is elevated at 3.42, we will treat with a total of 5 days of Levaquin for possible community-acquired pneumonia. GI: Maintain nothing by mouth status with the exception of medications until after cardiac catheterization. Proton pump inhibitor for GI prophylaxis. When necessary Zofran. Renal: Follow electrolytes and continue diuresis. Appropriate dose medications and avoid nephrotoxins. Endocrine: Sliding scale insulin Heme: Subcutaneous heparin for DVT prophylaxis for now. Anticipate transfer to [facility] where patient had prior procedures completed Consults & Procedures Consultants: Cardiology: Dr. Waller Procedures: Cardiac catheterization: 03/14/2017 Data Medications: Current Inpatient Medications Medications (Trade) Dose Ordered Sig/Luz Route Start Time Stop Time Status Last Admin Dose Admin Enoxaparin Sodium (Lovenox Inj) 40 mg Q24H SC 03/11/17 21:00 04/10/17 20:59 03/13/17 20:35 40 MG Lorazepam (Ativan Inj) 1 mg UD PRN IV 03/14/17 05:30 04/13/17 05:29 03/14/17 13:01 1 MG Famotidine 20 mg/ Dextrose 102 ml @ 200 mls/hr Q12@0600,1800 IV 03/14/17 06:00 04/13/17 05:59 03/14/17 05:53 200 MLS/HR Piperacillin Sod/ Tazobactam Sod (Consult) 1 ea UD PRN N/A 03/14/17 05:30 04/13/17 05:29 Levalbuterol (Xopenex Hfa Inhaler) 4 puffs Q6R INH 03/14/17 06:00 04/13/17 05:59 03/14/17 13:25 4 PUFFS Ipratropium Magna (Atrovent Hfa Inhaler) 4 puffs Q6R INH 03/14/17 06:00 04/13/17 05:59 03/14/17 13:25 4 PUFFS Vancomycin HCl 1500 mg/Sodium Chloride 530 ml @ 200 mls/hr Q12H IV 03/14/17 18:00 03/21/17 17:59 Vancomycin HCl (Consult) 1 ea UD PRN N/A 03/14/17 06:00 04/13/17 05:59 Carbidopa/Levodopa (Sinemet 25/ 100MG Tab) 1.5 tab 0500,0800,1100,1400,1700 NG 03/14/17 11:00 04/10/17 10:59 03/14/17 14:57 1.5 TAB Ropinirole HCl (Requip Tab) 4 mg QID@0500,0900,1300,1700 NG 03/14/17 09:00 04/11/17 12:59 03/14/17 14:58 4 MG Carbidopa/Levodopa (Sinemet 25/ 100MG Tab) 1 tab HS NG 03/14/17 21:00 04/13/17 20:59 Piperacillin Sod/ Tazobactam Sod 3.375 gm/Dextrose 115 ml @ 28.75 mls/ hr Q8H IV 03/14/17 10:00 03/21/17 09:59 03/14/17 09:49 28.75 MLS/HR Ropinirole HCl (Requip Tab) 6 mg HS NG 03/14/17 21:00 04/13/17 20:59 Enteral Nutritional Formula (Fibersource HN) 1,000 ml DAILY PRN PO 03/14/17 09:00 04/13/17 08:59 03/14/17 13:52 1,000 ML Insulin Aspart (novoLOG ASPART) SLIDING SCALE Q6 SC 03/14/17 09:00 04/13/17 08:59 Glucose (Glucose 40% Gel) 15-30 GRAMS 15 GRAMS... UD PRN PO 03/14/17 08:45 04/13/17 08:44 Glucose (Glucose Chew Tab) 4-8 Tablets 4 Tabl... UD PRN PO 03/14/17 08:45 04/13/17 08:44 Dextrose (Dextrose 50% 50ML Syringe) 25-50ML OF 50% DW IV FOR... UD PRN IV 03/14/17 08:45 04/13/17 08:44 Glucagon (Glucagon Inj) 1 mg UD PRN SQ 03/14/17 08:45 04/13/17 08:44 Miscellaneous Information (Consult Glycemic Management Pharmacy) 1 ea UD PRN N/A 03/14/17 08:42 04/13/17 08:41 Multivitamins Therapeutic (Cerovite Liquid) 15 ml QAM NG 03/14/17 09:00 04/13/17 08:59 03/14/17 09:49 15 ML Midazolam HCl (Versed Inj) 2 mg Q2H PRN IV 03/14/17 09:00 04/13/17 08:59 03/14/17 11:17 2 MG Fentanyl Citrate (Fentanyl Inj) 50 mcg Q2H PRN IV 03/14/17 09:00 03/28/17 08:59 03/14/17 11:35 50 MCG Propofol (Diprivan Iv Emulsion 100ml Vial) 1 dose UD IV 03/14/17 13:30 03/17/17 13:29 03/14/17 15:28 1 DOSE Acetaminophen 100 ml @ 400 mls/hr Q8H PRN IV 03/14/17 14:15 04/13/17 14:14 03/14/17 14:49 400 MLS/HR I & O: 24-Hour Column 03/15/17 08:00 Intake Total 1656 ml Output Total 750 ml Balance 906 ml Vital Signs: Date Time Temp Pulse Resp B/P (MAP) Pulse Ox O2 Delivery O2 Flow Rate FiO2 03/14/17 15:35 70 03/14/17 14:35 87 20 100 03/14/17 14:30 88 20 116/71 100 03/14/17 14:20 86 20 100 03/14/17 14:15 86 20 115/71 100 03/14/17 14:05 90 20 99 03/14/17 14:05 100 03/14/17 14:00 88 20 110/64 99 03/14/17 13:50 38.4 03/14/17 13:50 89 20 99 03/14/17 13:45 88 20 106/65 99 03/14/17 13:40 86 20 104/63 99 03/14/17 13:26 88 20 103/60 100 03/14/17 13:23 91 20 103/55 100 03/14/17 13:20 89 4 87/54 03/14/17 13:18 96 20 117/69 100 03/14/17 13:15 103 20 96/66 98 03/14/17 13:14 95 20 105/62 99 03/14/17 13:11 94 20 120/70 98 03/14/17 13:08 100 20 111/58 98 03/14/17 13:00 88 20 98 03/14/17 12:51 93 20 134/76 97 03/14/17 12:45 98 20 96 03/14/17 12:30 94 20 139/86 95 03/14/17 12:15 89 20 96 03/14/17 12:00 95 20 134/80 96 03/14/17 11:45 92 20 96 03/14/17 11:40 36.7 96 20 135/77 (96) 96 Mechanical Ventilator 100 03/14/17 11:31 93 14 138/84 95 03/14/17 11:30 100 03/14/17 11:30 Mechanical Ventilator 100 03/14/17 11:30 90 14 99 03/14/17 11:30 100 03/14/17 10:00 94 20 104/76 92 03/14/17 09:31 92 20 113/61 92 03/14/17 09:30 110 20 83 03/14/17 09:30 35.5 89 20 158/101 (120) 96 Mechanical Ventilator 100 03/14/17 09:01 91 20 99/61 91 03/14/17 09:00 97 20 92 03/14/17 08:31 85 20 110/73 93 03/14/17 08:30 87 20 90 03/14/17 08:01 94 20 155/100 03/14/17 08:00 86 20 03/14/17 07:31 88 20 173/107 96 03/14/17 07:30 37.1 89 20 166/118 (134) 96 Mechanical Ventilator 100 03/14/17 07:30 77 20 99 03/14/17 07:30 100 03/14/17 07:30 100 Mechanical Ventilator 4.0 100 03/14/17 07:30 Mechanical Ventilator 100 03/14/17 07:10 100 03/14/17 07:01 94 20 166/118 100 03/14/17 07:00 87 20 100 03/14/17 06:04 97 20 147/92 100 03/14/17 05:39 110 20 102/68 100 03/14/17 05:20 80 03/14/17 05:14 36.6 116 20 79/50 (60) 99 Mechanical Ventilator 80 63/43 (50) 03/14/17 04:50 102 92 80 03/14/17 04:50 102 14 92 BiPAP/CPAP 80 03/14/17 04:04 35.5 102 22 135/61 (85) 86 Nasal Cannula 4.0 03/14/17 03:47 37.2 112 18 135/61 (85) 80 Nasal Cannula 3.0 03/14/17 00:30 96 BiPAP 03/14/17 00:18 36.9 67 18 130/65 (86) 94 BiPAP 03/13/17 23:24 72 95 40 03/13/17 20:00 96 BiPAP 03/13/17 19:35 73 94 40 03/13/17 19:34 73 30 94 BiPAP/CPAP 40 03/13/17 19:18 36.8 80 24 159/81 (107) 96 BiPAP Laboratory Results: Last 24 Hours Test 03/14/17 04:36 03/14/17 05:11 03/14/17 06:01 03/14/17 09:23 Bedside Glucose 170 mg/dl 131 mg/dl White Blood Count 11.64 K/uL Red Blood Count 3.97 M/uL Hemoglobin 9.6 g/dL Hematocrit 34.4 % Mean Corpuscular Volume 86.6 fL Mean Corpuscular Hemoglobin 24.2 pg Mean Corpuscular Hemoglobin Concent 27.9 g/dl Platelet Count 358 K/uL Mean Platelet Volume 9.6 fL Neutrophils (%) (Auto) 87.2 % Lymphocytes (%) (Auto) 6.4 % Monocytes (%) (Auto) 5.2 % Eosinophils (%) (Auto) 0.7 % Basophils (%) (Auto) 0.2 % Neutrophils # (Auto) 10.16 K/uL Lymphocytes # (Auto) 0.74 K/uL Monocytes # (Auto) 0.61 K/uL Eosinophils # (Auto) 0.08 K/uL Basophils # (Auto) 0.02 K/uL RDW Standard Deviation 51.2 fL RDW Coefficient of Variation 16.0 % Immature Granulocyte % (Auto) 0.3 % Immature Granulocyte # (Auto) 0.03 K/uL Polychromasia 1+ Hypochromasia PRESENT Basophilic Stippling 1+ Anisocytosis PRESENT Stomatocytes 1+ Activated Partial Thromboplast Time 26.3 SECONDS Partial Thromboplastin Ratio 1.0 Sodium Level 137 mmol/L Potassium Level 5.9 mmol/L Chloride Level 95 mmol/L Carbon Dioxide Level 43 mmol/L Anion Gap -1.0 mmol/L Blood Urea Nitrogen 12 mg/dl Creatinine 1.00 mg/dl Est Creatinine Clear Calc Drug Dose 81.5 ml/min Estimated GFR () 91.8 Estimated GFR (Non- 79.2 BUN/Creatinine Ratio 11.9 Random Glucose 172 mg/dl Calcium Level 8.2 mg/dl Magnesium Level 2.5 mg/dl Blood Gas Sample Site R Radial Bedside Blood Gas pH (LAB) 7.36 Bedside Blood Gas pCO2 (LAB) 71 mmHg Bedside Blood Gas pO2 (LAB) 61 mmHg Bedside Blood Gas HCO3 (LAB) 40 meq/L Bedside Blood Gas Total CO2 > 40 mEq/l Bedside Blood Gas Base Excess (LAB) 15.0 meq/L Bedside Blood Gas O2 Saturation 89.0 % Luigi Test Pass Oxygen Delivery Device Ventilator Bedside Oxygen Rate (breaths/min) 20 Blood Gas Minute Ventilation 9.5 Bedside FiO2 80 % Blood Gas Tidal Volume 500 Blood Gas PEEP 5 Lactic Acid Level 0.8 mmol/L Test 03/14/17 11:15 Potassium Level 4.8 mmol/L
[2017-03-14] MEDS: VANCOMYCIN INJ 1,500 MG in SODIUM CHLORIDE 0.9% 500ML 500 ML IV SCH (17:05)
[2017-03-14] MEDS: ENOXAPARIN 40 MG/0.4 ML SYR SC SCH (20:11)
[2017-03-14] MEDS ORDERED: ROPINIROLE HYDROCHLORIDE PO SCH (21:00)
[2017-03-14] MEDS ORDERED: CARBIDOPA/LEVODOPA 25-250 1 EA TAB PO SCH (21:00)
[2017-03-15] VITALS (33 sets, daily range): BP systolic 96–147; BP diastolic 59–86; PULSE 61–82; TEMP 36.6–37.4; O2SAT 92–99
[2017-03-15] MEDS: PROPOFOL IV EMULSION 10 MG/ML 100 ML VIAL IV SCH ×6 (00:52→22:43)
[2017-03-15] MEDS: PIPERACILL/TAZOBAC IV 3.375 GM in DEXTROSE 5% 100ML IV SCH ×3 (01:35→20:00)
[2017-03-15] MEDS: LEValbuterol HFA 15GM INHALER INH SCH ×4 (02:34→19:41)
[2017-03-15] MEDS: IPRATROPIUM BROMIDE HFA INHALER INH SCH ×4 (02:34→19:41)
[2017-03-15] MEDS: FAMOTIDINE IV INJ 20 MG in DEXTROSE 5% 100ML 100 ML IV SCH ×2 (05:20→16:59)
[2017-03-15] MEDS: VANCOMYCIN INJ 1,500 MG in SODIUM CHLORIDE 0.9% 500ML 500 ML IV SCH ×2 (05:20→16:59)
[2017-03-15] MEDS: INSULIN ASPART 100 UNITS/ML 3 ML PEN SC SCH ×4 (05:21→23:11)
[2017-03-15] MEDS: ROPINIROLE HCL 1 MG TAB NG SCH ×5 (05:58→20:00)
[2017-03-15] MEDS: CARBIDOPA/LEVODOPA 25/100MG TAB NG SCH ×6 (05:58→20:00)
[2017-03-15] MEDS: FENTANYL CITRATE INJ 50 MCG/1 ML 2 ML VIAL IV PRN ×5 (05:58→23:11)
[2017-03-15] MEDS: MIDAZOLAM HCL 1 MG/ML 2ML VIAL IV PRN (05:58)
[2017-03-15 07:31] LABS: BUN/CREATININE RATIO 14.2 (10-20); CALCIUM 8.1 mg/dl (8.5-10.1); CREATININE 0.92 mg/dl (0.60-1.40); PHOSPHORUS 1.6 mg/dl (2.5-4.9); POTASSIUM 3.8 mmol/L (3.5-5.1)
[2017-03-15 07:57] LABS: HEMATOCRIT 27.9 % (42-52); MEAN CELL VOLUME 77.5 fL (80-100); MEAN CORPUSCULAR HEMOGLOBIN 23.9 pg (25-34); MEAN CORPUSCULAR HGB CONC 30.8 g/dl (32-36); MEAN PLATELET VOLUME 9.6 fL (7.4-10.4); PLATELET COUNT 295 K/uL (130-400); WHITE BLOOD COUNT 10.66 K/uL (4.8-10.8)
[2017-03-15 07:58] LABS: ESTIMATED AVERAGE GLUCOSE 140 mg/dl; HA1C FLAG Normal (Normal)
[2017-03-15] MEDS: MULTIVITAMINS W/MINERALS 15ML UDP NG SCH (08:18)
[2017-03-15 08:23] LABS: BASO % 0.2 %; BASO ABS # 0.02 K/uL (0-0.2); COMPLETE YES; IG% 0.2 %; LYMPH % 7.2 %; LYMPH ABS # 0.77 K/uL (1.2-3.4); NEUT % 83.4 %; POIKILOCYTOSIS PRESENT
[2017-03-15] MEDS ORDERED: NORMOSOL R 1,000 ML IV SCH (08:45)
--- NOTE | 2017-03-15 08:47 | Critical Care Progress Note ---
Critical Care Progress Note Date of Service Mar 15, 2017. ICU Day ICU Day Number: [address] Birch Subjective Intubated and sedated, spontaneous breathing trial attempted this morning, patient became tachycardic and decreased sats into the high 80s. Objective General Appearance: WD/WN, uncomfortable Head: normocephalic, atraumatic Eyes: PERRLA ENT: other (endotracheal tube present) Respiratory: rhonchi, other (dullness and crackles in left lung field) Cardiovascular: Regular rate and rhythm Abdomen: non tender, no masses Genitourinary - Male: other (Oliver present) Current SOFA Score SOFA Score Response (Comments) Value Platelets (x10) > 150 0 Bilirubin (mg/dL) < 1.2 0 [place] Coma Score 6 - 9 (9T) 3 Level of Hypotension No Hypotension 0 Creatinine (mg/dL) < 1.2 0 Total 3 Assessment & Plan Reason Critically Ill: Hypoxic respiratory failure PLAN: Neuro: Severe Parkinson's disease * Continue Parkinson's medication * Immediate release form ordered via OG tube * Sedation with propofol, may transition to precedex and 24 hours for possible extubation Resp: Hypoxic respiratory failure with hypercarbia * Left lung infiltrates consistent with pneumonia * Broad-spectrum antibiotics to cover aspiration organisms * Lavage culture still pending * Improved aeration via chest x-ray * Patient at increased risk for a tracheostomy given a neuromuscular disease CV: Sinus tachycardia on monitor for arrhythmias Fluids/Renal: Monitor GFR, hyaline casts seen on UA. * Likely euvolemic * Adding additional phosphorus, tubes feeds should reach goal today ID: Left lobe pneumonia, probable aspiration * Continue Zosyn and vancomycin GI/Nutrition: Start tube feeds and continue oral medications * Fiber source 1.2, goal 45 ML's Heme: Microcytic anemia, likely anemia of chronic disease reviewed anemia studies * DVT prophylaxis with Lovenox 40 mg Endocrine: Patient given one time dose of steroids, will hold additional steroids at this point CODE STATUS: Full resuscitation Patient still has considerable secretion burden, would anticipate improvement with another 24 hours of antibiotics. Will de-escalate as soon as organism identified off BAL. Continue present care I have personally spent 40 minutes of critical care time in the direct management of this patient. This is a life/limb threatening event. This includes time spent evaluating patient, direct bedside care, chart review, placing orders, interpretation of diagnostic studies, discussion with consultants, patient, and family members, as well as other required patient management activities. This time is exclusive of all separately billable procedures, and teaching time and separate from and in addition to any other critical care service time. Consults & Procedures Consultants: Pulmonary: Dr. conklin Procedures: Bronchoscopy March 14 Data Medications: Current Inpatient Medications Medications (Trade) Dose Ordered Sig/Luz Route Start Time Stop Time Status Last Admin Dose Admin Enoxaparin Sodium (Lovenox Inj) 40 mg Q24H SC 03/11/17 21:00 04/10/17 20:59 03/14/17 20:11 40 MG Lorazepam (Ativan Inj) 1 mg UD PRN IV 03/14/17 05:30 04/13/17 05:29 03/14/17 13:01 1 MG Famotidine 20 mg/ Dextrose 102 ml @ 200 mls/hr Q12@0600,1800 IV 03/14/17 06:00 04/13/17 05:59 03/15/17 05:20 200 MLS/HR Piperacillin Sod/ Tazobactam Sod (Consult) 1 ea UD PRN N/A 03/14/17 05:30 04/13/17 05:29 Levalbuterol (Xopenex Hfa Inhaler) 4 puffs Q6R INH 03/14/17 06:00 04/13/17 05:59 03/15/17 07:15 4 PUFFS Ipratropium [place] (Atrovent Hfa Inhaler) 4 puffs Q6R INH 03/14/17 06:00 04/13/17 05:59 03/15/17 07:14 4 PUFFS Vancomycin HCl 1500 mg/Sodium Chloride 530 ml @ 200 mls/hr Q12H IV 03/14/17 18:00 03/21/17 17:59 03/15/17 05:20 200 MLS/HR Vancomycin HCl (Consult) 1 ea UD PRN N/A 03/14/17 06:00 04/13/17 05:59 Carbidopa/Levodopa (Sinemet 25/ 100MG Tab) 1.5 tab 0500,0800,1100,1400,1700 NG 03/14/17 11:00 04/10/17 10:59 03/15/17 08:18 1.5 TAB Ropinirole HCl (Requip Tab) 4 mg QID@0500,0900,1300,1700 NG 03/14/17 09:00 04/11/17 12:59 03/15/17 08:18 4 MG Carbidopa/Levodopa (Sinemet 25/ 100MG Tab) 1 tab HS NG 03/14/17 21:00 04/13/17 20:59 03/14/17 20:11 1 TAB Piperacillin Sod/ Tazobactam Sod 3.375 gm/Dextrose 115 ml @ 28.75 mls/ hr Q8H IV 03/14/17 10:00 03/21/17 09:59 03/15/17 01:35 28.75 MLS/HR Ropinirole HCl (Requip Tab) 6 mg HS NG 03/14/17 21:00 04/13/17 20:59 03/14/17 20:11 6 MG Enteral Nutritional Formula (Fibersource HN) 1,000 ml DAILY PRN PO 03/14/17 09:00 04/13/17 08:59 03/14/17 13:52 1,000 ML Insulin Aspart (novoLOG ASPART) SLIDING SCALE Q6 SC 03/14/17 09:00 04/13/17 08:59 Glucose (Glucose 40% Gel) 15-30 GRAMS 15 GRAMS... UD PRN PO 03/14/17 08:45 04/13/17 08:44 Glucose (Glucose Chew Tab) 4-8 Tablets 4 Tabl... UD PRN PO 03/14/17 08:45 04/13/17 08:44 Dextrose (Dextrose 50% 50ML Syringe) 25-50ML OF 50% DW IV FOR... UD PRN IV 03/14/17 08:45 04/13/17 08:44 Glucagon (Glucagon Inj) 1 mg UD PRN SQ 03/14/17 08:45 04/13/17 08:44 Miscellaneous Information (Consult Glycemic Management Pharmacy) 1 ea UD PRN N/A 03/14/17 08:42 04/13/17 08:41 Multivitamins Therapeutic (Cerovite Liquid) 15 ml QAM NG 03/14/17 09:00 04/13/17 08:59 03/15/17 08:18 15 ML Midazolam HCl (Versed Inj) 2 mg Q2H PRN IV 03/14/17 09:00 04/13/17 08:59 03/15/17 05:58 2 MG Fentanyl Citrate (Fentanyl Inj) 50 mcg Q2H PRN IV 03/14/17 09:00 03/28/17 08:59 03/15/17 05:58 50 MCG Propofol (Diprivan Iv Emulsion 100ml Vial) 1 dose UD IV 03/14/17 13:30 03/17/17 13:29 03/15/17 08:23 1 DOSE Acetaminophen 100 ml @ 400 mls/hr Q8H PRN IV 03/14/17 14:15 04/13/17 14:14 03/14/17 14:49 400 MLS/HR Vital Signs: Date Time Temp Pulse Resp B/P (MAP) Pulse Ox O2 Delivery O2 Flow Rate FiO2 03/15/17 07:15 30 03/15/17 07:01 76 20 118/77 93 03/15/17 06:00 79 20 96/59 95 03/15/17 05:42 30 03/15/17 05:00 81 20 124/80 95 03/15/17 04:01 80 20 116/79 95 03/15/17 04:00 30 03/15/17 04:00 36.9 03/15/17 04:00 94 Mechanical Ventilator 30 03/15/17 03:01 77 20 112/61 93 03/15/17 02:34 30 03/15/17 02:01 70 20 130/75 96 03/15/17 01:01 69 20 132/75 95 03/15/17 00:00 73 20 114/76 93 03/14/17 23:59 30 03/14/17 23:59 95 Mechanical Ventilator 30 03/14/17 23:59 36.6 03/14/17 23:30 75 20 92 03/14/17 23:02 40 03/14/17 23:00 71 20 130/76 95 03/14/17 22:30 68 20 95 03/14/17 22:01 68 20 116/66 95 03/14/17 21:31 77 20 119/71 94 03/14/17 21:00 70 20 123/72 95 03/14/17 20:30 85 20 131/97 96 03/14/17 20:01 80 20 125/88 92 03/14/17 20:00 36.6 03/14/17 20:00 40 03/14/17 20:00 96 Mechanical Ventilator 40 03/14/17 19:31 79 20 112/72 92 73/17 19:30 40 7/17 19:01 80 20 126/69 95 7/17 18:01 37.6 85 20 122/72 96 7/17 18:00 80 20 96 7/17 17:57 40 717 17:55 70 717 17:30 85 20 131/71 99 717 17:00 88 20 126/84 100 73/17 16:30 82 20 132/85 99 7/17 16:00 83 20 132/86 99 17 15:35 70 7 15:30 37.3 83 20 134/76 (95) 99 Mechanical Ventilator 70 03/14/17 15:30 70 03/14/17 15:30 Mechanical Ventilator 100 03/14/17 14:35 87 20 100 03/14/17 14:30 88 20 116/71 100 03/14/17 14:20 86 20 100 03/14/ 14:15 86 20 115/71 100 03/14/ 14:05 90 20 99 03/14/ 14:05 100 03/14/17 14:00 88 20 110/64 99 03/14/ 13:50 38.4 03/14/17 13:50 89 20 99 //17 13:45 88 20 106/65 99 //17 13:40 86 20 104/63 99 03/14/17 13:26 88 20 103/60 100 03/14/17 13:23 91 20 103/55 100 03/14/17 13:20 89 4 87/54 03/14/17 13:18 96 20 117/69 100 3/17 13:15 103 20 96/66 98 3/17 13:14 95 20 105/62 99 /3/17 13:11 94 20 120/70 98 3/17 13:08 100 20 111/58 98 /3/17 13:00 88 20 98 /3/17 12:51 93 20 134/76 97 03/14/17 12:45 98 20 96 73/17 12:30 94 20 139/86 95 7/3/17 12:15 89 20 96 03/14/17 12:00 95 20 134/80 96 03/14/17 11:45 92 20 96 03/14/17 11:40 36.7 96 20 135/77 (96) 96 Mechanical Ventilator 100 03/14/17 11:31 93 14 138/84 95 03/14/17 11:30 100 03/14/17 11:30 Mechanical Ventilator 100 03/14/17 11:30 90 14 99 03/14/17 11:30 100 03/14/17 10:00 94 20 104/76 92 03/14/17 09:31 92 20 113/61 92 03/14/17 09:30 110 20 83 03/14/17 09:30 35.5 89 20 158/101 (120) 96 Mechanical Ventilator 100 03/14/17 09:01 91 20 99/61 91 03/14/17 09:00 97 20 92 Laboratory Results: Last 24 Hours Test 03/14/17 09:23 03/14/17 11:15 03/14/17 11:23 03/14/17 15:37 Bedside Glucose 131 mg/dl 129 mg/dl 129 mg/dl Potassium Level 4.8 mmol/L Test 03/14/17 23:28 03/15/17 05:19 03/15/17 06:45 Bedside Glucose 120 mg/dl 100 mg/dl White Blood Count 10.66 K/uL Red Blood Count 3.60 M/uL Hemoglobin 8.6 g/dL Hematocrit 27.9 % Mean Corpuscular Volume 77.5 fL Mean Corpuscular Hemoglobin 23.9 pg Mean Corpuscular Hemoglobin Concent 30.8 g/dl Platelet Count 295 K/uL Mean Platelet Volume 9.6 fL Neutrophils (%) (Auto) 83.4 % Lymphocytes (%) (Auto) 7.2 % Monocytes (%) (Auto) 8.0 % Eosinophils (%) (Auto) 1.0 % Basophils (%) (Auto) 0.2 % Neutrophils # (Auto) 8.89 K/uL Lymphocytes # (Auto) 0.77 K/uL Monocytes # (Auto) 0.85 K/uL Eosinophils # (Auto) 0.11 K/uL Basophils # (Auto) 0.02 K/uL RDW Standard Deviation 45.8 fL RDW Coefficient of Variation 16.0 % Immature Granulocyte % (Auto) 0.2 % Immature Granulocyte # (Auto) 0.02 K/uL Poikilocytosis PRESENT Sodium Level 137 mmol/L Potassium Level 3.8 mmol/L Chloride Level 101 mmol/L Carbon Dioxide Level 32 mmol/L Anion Gap 4.0 mmol/L Blood Urea Nitrogen 13 mg/dl Creatinine 0.92 mg/dl Est Creatinine Clear Calc Drug Dose 90.2 ml/min Estimated GFR () 101.5 Estimated GFR (Non- 87.6 BUN/Creatinine Ratio 14.2 Random Glucose 109 mg/dl Estimated Average Glucose 140 mg/dl Hemoglobin A1c 6.5 % Calcium Level 8.1 mg/dl Phosphorus Level 1.6 mg/dl Magnesium Level 2.0 mg/dl
--- NOTE | 2017-03-15 10:00 | DIAGNOSTIC IMAGING REPORT ---
SINGLE VIEW CHEST CLINICAL HISTORY: Respiratory failure. Intubation. FINDINGS: An AP, portable, upright chest radiograph is compared to study dated 03/14/2017 and correlated with chest CT dated 03/12/2017. The examination is significantly degraded by portable technique and patient rotation. Endotracheal and enteric tubes are unchanged in position. An electronic device largely obscures the left mid chest with leads extending the neck. This is unchanged from previous. The heart is enlarged and there is atherosclerotic calcification of the thoracic aorta. Pulmonary vascular congestion persists. There are layering pleural effusions, left larger than right with bibasilar consolidation. There is significant improved aeration of the left lung as compared to yesterday. No pneumothorax is seen. The skeletal structures are osteopenic. The bony thorax is grossly intact. A right shoulder arthroplasty is in place. IMPRESSION: 1. Stable lines and tubes. 2. There is significantly improved aeration of the left lung as compared to yesterday. 3. Cardiomegaly with evidence of mild pulmonary vascular congestion. 4. Layering pleural effusions with bibasilar consolidation. This likely represents atelectasis. Clinical correlation will be required. Electronically signed by: Jignesh Hernández M.D. 03/15/2017 9:59 AM Dictated Date/Time: 03/15/2017 9:55 AM
--- NOTE | 2017-03-15 11:49 | Progress Note ---
Internal Med Progress Note Date of Service: Mar 15, 2017. Provider Documentation: SUBJECTIVE: Patient remains intubated. Unable to wean off today Sedated OBJECTIVE: Vital Signs-as noted below Exam: General Appearance: Sedated Head: normocephalic, atraumatic Eyes: PERRLA ENT: other (endotracheal tube present) Respiratory: rhonchi, other (dullness and crackles in left lung field) Cardiovascular: Regular rate and rhythm Abdomen: non tender, no masses Genitourinary - Male: other (Oliver present) Lab data as noted below. ASSESSMENT & PLAN: 66 year old M with severe Parkinson's disease who is S/P Shoulder surgery presenting with episodic hypotension and lightheadedness. He never became hypotensive during this admission, but was hypoxic and unable to be weaned off. He underwent a CT PE in light of bedbound status and recent shoulder surgery 8 weeks ago, which was negative for PE with some atelectasis present. The following morning, pulm saw him and an ABG revealed hypercapnia with a CO2 79. BIPAP was started but he couldn't tolerate so he was taken off. A few hours later he became agitated and trying to leave his room, puling off his oxygen, etc. A repeat ABG revealed persistent CO2 of 76 and he was given Ativan and put back on the BIPAP and made NPO. Around 8pm he was taken off BIPAP per resp and after one hour of normal mentation and proving he could swallow pills, the nurse requested food for him and he was allowed to eat. Later that night he was put back on the BIPAP and vomited with aspiration and subsequent intubation. ASSESSMENT AND PLAN : ACUTE HYPERCAPNIC RESPIRATORY FAILURE : -Secondary to pneumonia, left sided, probably aspiration -S/P Intubation -S/P Bronchoscopy - secretions + cultures sent -IV antibiotics - Vancomycin, Zosyn -Work up- CXR, cultures -Appreciate pulmonary inputs ELEVATED TROPONIN Mild elevation, trended down. Likely demand ischemia -TTE- no acute wall motion abnormalities MICROCYTIC ANEMIA- Iron deficient -On iron supplement which were started this admission PARKINSONS DISEASE, CHRONIC - On Sinemet and Requip. DVT PROPHYLAXIS - SQ Lovenox GI PROPHYLAXIS -Pepcid CODE STATUS: FULL DISPOSITION Continue with ICU monitoring Manager Web on board Vital Signs: Date Time Temp Pulse Resp B/P (MAP) Pulse Ox O2 Delivery O2 Flow Rate FiO2 03/15/17 11:20 36.6 78 20 128/73 (91) 95 Mechanical Ventilator 30 03/15/17 11:20 30 03/15/17 11:20 Mechanical Ventilator 30 03/15/17 11:17 30 03/15/17 11:00 78 20 130/86 97 03/15/17 10:00 72 20 128/73 94 03/15/17 09:37 73 20 116/70 (85) 96 Mechanical Ventilator 30 03/15/17 09:01 74 20 116/70 96 03/15/17 09:00 71 20 96 03/15/17 08:01 70 20 127/78 93 03/15/17 08:00 72 20 92 03/15/17 07:30 36.9 68 20 127/78 (94) 96 Mechanical Ventilator 30 03/15/17 07:30 30 03/15/17 07:30 Mechanical Ventilator 30 03/15/17 07:15 30 03/15/17 07:01 76 20 118/77 93 03/15/17 07:01 76 20 118/77 93 03/15/17 07:00 77 20 93 03/15/17 06:00 79 20 96/59 95 03/15/17 05:42 30 03/15/17 05:00 81 20 124/80 95 03/15/17 04:01 80 20 116/79 95 03/15/17 04:00 30 03/15/17 04:00 36.9 03/15/17 04:00 94 Mechanical Ventilator 30 03/15/17 03:01 77 20 112/61 93 03/15/17 02:34 30 03/15/17 02:01 70 20 130/75 96 03/15/17 01:01 69 20 132/75 95 03/15/17 00:00 73 20 114/76 93 03/14/17 23:59 30 03/14/17 23:59 95 Mechanical Ventilator 30 03/14/17 23:59 36.6 03/14/17 23:30 75 20 92 03/14/17 23:02 40 03/14/17 23:00 71 20 130/76 95 03/14/17 22:30 68 20 95 03/14/17 22:01 68 20 116/66 95 03/14/17 21:31 77 20 119/71 94 03/14/17 21:00 70 20 123/72 95 03/14/17 20:30 85 20 131/97 96 03/14/17 20:01 80 20 125/88 92 03/14/17 20:00 36.6 03/14/17 20:00 40 03/14/17 20:00 96 Mechanical Ventilator 40 03/14/17 19:31 79 20 112/72 92 03/14/17 19:30 40 03/14/17 19:01 80 20 126/69 95 03/14/17 18:01 37.6 85 20 122/72 96 03/14/17 18:00 80 20 96 03/14/17 17:57 40 03/14/17 17:55 70 03/14/17 17:30 85 20 131/71 99 03/14/17 17:00 88 20 126/84 100 03/14/17 16:30 82 20 132/85 99 03/14/17 16:00 83 20 132/86 99 03/14/17 15:35 70 03/14/17 15:30 37.3 83 20 134/76 (95) 99 Mechanical Ventilator 70 03/14/17 15:30 70 03/14/17 15:30 Mechanical Ventilator 100 03/14/17 14:35 87 20 100 03/14/17 14:30 88 20 116/71 100 03/14/17 14:20 86 20 100 03/14/17 14:15 86 20 115/71 100 03/14/17 14:05 90 20 99 03/14/17 14:05 100 03/14/17 14:00 88 20 110/64 99 03/14/17 13:50 38.4 03/14/17 13:50 89 20 99 03/14/17 13:45 88 20 106/65 99 03/14/17 13:40 86 20 104/63 99 03/14/17 13:26 88 20 103/60 100 03/14/17 13:23 91 20 103/55 100 03/14/17 13:20 89 4 87/54 03/14/17 13:18 96 20 117/69 100 03/14/17 13:15 103 20 96/66 98 03/14/17 13:14 95 20 105/62 99 03/14/17 13:11 94 20 120/70 98 03/14/17 13:08 100 20 111/58 98 7/3/17 13:00 88 20 98 03/14/17 12:51 93 20 134/76 97 03/14/17 12:45 98 20 96 03/14/17 12:30 94 20 139/86 95 03/14/17 12:15 89 20 96 03/14/17 12:00 95 20 134/80 96 03/14/17 11:45 92 20 96 03/14/17 11:40 36.7 96 20 135/77 (96) 96 Mechanical Ventilator 100 Lab Results: Results Past 24 Hours Test 03/14/17 15:37 03/14/17 23:28 03/15/17 05:19 03/15/17 06:45 Range/Units Bedside Glucose 129 120 100 70-99 mg/dl White Blood Count 10.66 4.8-10.8 K/uL Red Blood Count 3.60 4.7-6.1 M/uL Hemoglobin 8.6 14.0-18.0 g/dL Hematocrit 27.9 42-52 % Mean Corpuscular Volume 77.5 80-100 fL Mean Corpuscular Hemoglobin 23.9 25-34 pg Mean Corpuscular Hemoglobin Concent 30.8 32-36 g/dl Platelet Count 295 130-400 K/uL Mean Platelet Volume 9.6 7.4-10.4 fL Neutrophils (%) (Auto) 83.4 % Lymphocytes (%) (Auto) 7.2 % Monocytes (%) (Auto) 8.0 % Eosinophils (%) (Auto) 1.0 % Basophils (%) (Auto) 0.2 % Neutrophils # (Auto) 8.89 1.4-6.5 K/uL Lymphocytes # (Auto) 0.77 1.2-3.4 K/uL Monocytes # (Auto) 0.85 0.11-0.59 K/uL Eosinophils # (Auto) 0.11 0-0.5 K/uL Basophils # (Auto) 0.02 0-0.2 K/uL RDW Standard Deviation 45.8 36.4-46.3 fL RDW Coefficient of Variation 16.0 11.5-14.5 % Immature Granulocyte % (Auto) 0.2 % Immature Granulocyte # (Auto) 0.02 0.00-0.02 K/uL Poikilocytosis PRESENT Sodium Level 137 136-145 mmol/L Potassium Level 3.8 3.5-5.1 mmol/L Chloride Level 101 98-107 mmol/L Carbon Dioxide Level 32 21-32 mmol/L Anion Gap 4.0 3-11 mmol/L Blood Urea Nitrogen 13 7-18 mg/dl Creatinine 0.92 0.60-1.40 mg/dl Est Creatinine Clear Calc Drug Dose 90.2 ml/min Estimated GFR () 101.5 Estimated GFR (Non- 87.6 BUN/Creatinine Ratio 14.2 10-20 Random Glucose 109 70-99 mg/dl Estimated Average Glucose 140 mg/dl Hemoglobin A1c 6.5 4.5-5.6 % Calcium Level 8.1 8.5-10.1 mg/dl Phosphorus Level 1.6 2.5-4.9 mg/dl Magnesium Level 2.0 1.8-2.4 mg/dl Test 03/15/17 10:55 Range/Units Bedside Glucose 108 70-99 mg/dl
[2017-03-15] MEDS: FIBERSOURCE HN 1000ML BAG PO PRN ×2 (16:31)
[2017-03-15] MEDS: ENOXAPARIN 40 MG/0.4 ML SYR SC SCH (20:00)
[2017-03-16] VITALS (30 sets, daily range): BP systolic 103–199; BP diastolic 62–113; PULSE 59–90; TEMP 36.6–37.3; O2SAT 90–100
[2017-03-16] MEDS: PIPERACILL/TAZOBAC IV 3.375 GM in DEXTROSE 5% 100ML IV SCH ×2 (00:58→10:19)
[2017-03-16] MEDS: PROPOFOL IV EMULSION 10 MG/ML 100 ML VIAL IV SCH ×6 (02:01→22:00)
[2017-03-16] MEDS: LEValbuterol HFA 15GM INHALER INH SCH ×4 (02:35→19:51)
[2017-03-16] MEDS: IPRATROPIUM BROMIDE HFA INHALER INH SCH ×4 (02:35→19:51)
[2017-03-16] MEDS: FAMOTIDINE IV INJ 20 MG in DEXTROSE 5% 100ML 100 ML IV SCH ×2 (05:11→18:26)
[2017-03-16] MEDS: CARBIDOPA/LEVODOPA 25/100MG TAB NG SCH ×6 (05:11→20:53)
[2017-03-16] MEDS: ROPINIROLE HCL 1 MG TAB NG SCH ×5 (05:11→20:53)
[2017-03-16] MEDS ORDERED: VANCOMYCIN TROUGH SCH (05:30)
[2017-03-16] MEDS: INSULIN ASPART 100 UNITS/ML 3 ML PEN SC SCH ×3 (05:40→18:00)
[2017-03-16] MEDS: VANCOMYCIN INJ 1,500 MG in SODIUM CHLORIDE 0.9% 500ML 500 ML IV SCH (05:40)
[2017-03-16 05:53] LABS: BASO % 0.2 %; BASO ABS # 0.02 K/uL (0-0.2); COMPLETE YES; EOS % 2.1 %; HEMATOCRIT 29.1 % (42-52); IG% 0.3 %; LYMPH % 12.9 %; LYMPH ABS # 1.17 K/uL (1.2-3.4); MEAN CELL VOLUME 76.8 fL (80-100); MEAN CORPUSCULAR HEMOGLOBIN 23.7 pg (25-34); MEAN CORPUSCULAR HGB CONC 30.9 g/dl (32-36); MEAN PLATELET VOLUME 9.1 fL (7.4-10.4); MONO % 9.3 %; NEUT % 75.2 %; PLATELET COUNT 298 K/uL (130-400); RED BLOOD COUNT 3.79 M/uL (4.7-6.1); WHITE BLOOD COUNT 9.04 K/uL (4.8-10.8)
[2017-03-16 06:02] LABS: ISTAT ALLEN TEST Pass; ISTAT ARTERIAL BLOOD GAS HCO3 30 meq/L (19-24); ISTAT ARTERIAL BLOOD GAS PCO2 43 mmHg (35-46); ISTAT ARTERIAL BLOOD GAS PO2 67 mmHg (80-95); ISTAT ARTERIAL BLOOD GAS pH 7.46 (7.35-7.45); ISTAT CARBON DIOXIDE 31 mEq/l (24-31); ISTAT DELIVERY SYSTEM Ventilator; ISTAT FIO2 30 %; ISTAT PEEP 5; ISTAT RATE 20; ISTAT SITE R Radial; VE 9.3; Vt 500
[2017-03-16 06:30] LABS: BUN/CREATININE RATIO 10.8 (10-20); CALCIUM 8.2 mg/dl (8.5-10.1); MAGNESIUM 2.3 mg/dl (1.8-2.4); PHOSPHORUS 1.8 mg/dl (2.5-4.9); POTASSIUM 3.9 mmol/L (3.5-5.1)
[2017-03-16] MEDS ORDERED: SODIUM PHOSPHATE 3 MMOL/1 ML INFUSION IV STA (06:44)
--- NOTE | 2017-03-16 06:53 | DIAGNOSTIC IMAGING REPORT ---
CHEST ONE VIEW PORTABLE CLINICAL HISTORY: Respiratory failure COMPARISON STUDY: 03/15/2017 FINDINGS: There is an endotracheal tube is in addition approximate 5 cm above the cory. There is a nasogastric tube which passes into the stomach. The heart is enlarged. There are bilateral pleural effusions with associated bibasal airspace opacities. There is radiographic evidence of congestive failure. The generator pack projects over the left chest. This likely is secondary to a neurostimulator. Postsurgical changes involve the right shoulder.[ IMPRESSION: Congestive heart failure pattern. Bilateral pleural effusions with associated bibasal airspace opacities. Electronically signed by: Sam Jordan M.D. 03/16/2017 6:51 AM Dictated Date/Time: 03/16/2017 6:50 AM
[2017-03-16] MEDS ORDERED: SODIUM PHOSPHATE INJ 21 MMOL in SODIUM CHLORIDE 0.9% 500ML 500 ML IV SCH (07:00)
[2017-03-16] MEDS: MULTIVITAMINS W/MINERALS 15ML UDP NG SCH (08:06)
[2017-03-16] MEDS: FENTANYL CITRATE INJ 50 MCG/1 ML 2 ML VIAL IV PRN ×4 (08:46→21:59)
[2017-03-16] MEDS ORDERED: DexMEDEtomidine IV DRIP IV STA (08:54)
[2017-03-16] MEDS ORDERED: DOCUSATE SODIUM 100 MG/10 ML UDC PO PRN (09:00)
[2017-03-16] MEDS ORDERED: PEPTAMEN INTENSE VHP 1000ML BAG OG PRN (09:15)
[2017-03-16] MEDS: METOPROLOL TARTRATE 25 MG TAB PO SCH ×2 (10:19→20:53)
--- NOTE | 2017-03-16 10:39 | Procedure Note ---
Procedure Note Date of Service Mar 16, 2017. Procedure Note Procedure date: 03/16/2017 Procedure: fiberoptic bronchoscopy Pre-procedure Diagnosis: Hypoxic respiratory failure, left lung pneumonia Post-procedure Diagnosis: same as above Prior to Procedure: Informed Consent: The risks, benefits, indications, potential complications, and alternatives were explained to the patient/family and informed consent obtained. Attending Staff: Catrachita Birch DO Resident/APC: Not applicable Skin Prep: Not applicable Anesthesia: Propofol infusion, 100 mg of lidocaine instilled down the endotracheal tube Indications: Persistent hypoxic respiratory failure, concern for mucous impaction. The identity of the patient was confirmed and a bedside time out was performed. Description of Procedure: Fiberoptic bronchoscopy was performed via endotracheal tube. Bronchioalveolar lavage was not performed. Findings included : Thick tenacious mucoid secretions in the proximal airways were suctioned, examination of the lower airways revealed largely unremarkable distal airways. Complications: None Specimens: None Estimated blood loss: Zero
--- NOTE | 2017-03-16 10:46 | Critical Care Progress Note ---
Critical Care Progress Note Date of Service Mar 16, 2017. ICU Day ICU Day Number: [address] Birch Subjective Intubated and sedated, failed spontaneous breathing trial this morning: Became agitated fighting tube desaturations and tachycardia Objective General Appearance: WD/WN, Head: normocephalic, atraumatic Eyes: PERRLA ENT: other (endotracheal tube present) Respiratory: rhonchi, scattered Cardiovascular: Regular rate and rhythm Abdomen: non tender, no masses Genitourinary - Male: other (Oliver present) Current SOFA Score SOFA Score Response (Comments) Value Platelets (x10) > 150 0 Bilirubin (mg/dL) < 1.2 0 Ramer Coma Score 6 - 9 (9T) 3 Level of Hypotension No Hypotension 0 Creatinine (mg/dL) < 1.2 0 Total 3 Previous SOFA Scores 3 03/15/2017 Assessment & Plan Reason Critically Ill: Hypoxic respiratory failure PLAN: Neuro: Severe Parkinson's disease * Continue Parkinson's medication * Immediate release form ordered via OG tube * Transition to precedex for better sedation leading to liver aeration from mechanical ventilation Resp: Hypoxic respiratory failure with hypercarbia * Probable aspiration * Lavage culture: Light normal lauren * Patient at increased risk for a tracheostomy given a neuromuscular disease CV: Sinus rhythm with occasional PVC on monitor for arrhythmias Fluids/Renal: Monitor GFR, hyaline casts seen on UA. * Likely euvolemic ID: Left lobe pneumonia, probable aspiration * Continue Zosyn and vancomycin * Will discontinue antibiotics given light normal lauren, and lack of findings on repeat bronchoscopy in distal airways GI/Nutrition: Start tube feeds and continue oral medications * Converting to Peptamen per nutrition for higher protein concent Heme: Microcytic anemia, likely anemia of chronic disease reviewed anemia studies * DVT prophylaxis with Lovenox 40 mg Endocrine: Patient given one time dose of steroids, will hold additional steroids at this point CODE STATUS: Full resuscitation Hypoxia likely related to aspiration pneumonitis, we will discontinue antibiotics I have personally spent 40 minutes of critical care time in the direct management of this patient. This is a life/limb threatening event. This includes time spent evaluating patient, direct bedside care, chart review, placing orders, interpretation of diagnostic studies, discussion with consultants, patient, and family members, as well as other required patient management activities. This time is exclusive of all separately billable procedures, and teaching time and separate from and in addition to any other critical care service time. Consults & Procedures Consultants: Pulmonary: Cable Procedures: Bronchoscopy March 14, March 16 Data Medications: Current Inpatient Medications Medications (Trade) Dose Ordered Sig/Luz Route Start Time Stop Time Status Last Admin Dose Admin Enoxaparin Sodium (Lovenox Inj) 40 mg Q24H SC 03/11/17 21:00 04/10/17 20:59 03/15/17 20:00 40 MG Famotidine 20 mg/ Dextrose 102 ml @ 200 mls/hr Q12@0600,1800 IV 03/14/17 06:00 04/13/17 05:59 03/16/17 05:11 200 MLS/HR Piperacillin Sod/ Tazobactam Sod (Consult) 1 ea UD PRN N/A 03/14/17 05:30 04/13/17 05:29 Levalbuterol (Xopenex Hfa Inhaler) 4 puffs Q6R INH 03/14/17 06:00 04/13/17 05:59 03/16/17 07:25 4 PUFFS Ipratropium [place] (Atrovent Hfa Inhaler) 4 puffs Q6R INH 03/14/17 06:00 04/13/17 05:59 03/16/17 07:25 4 PUFFS Vancomycin HCl 1500 mg/Sodium Chloride 530 ml @ 200 mls/hr Q12H IV 03/14/17 18:00 03/21/17 17:59 03/16/17 05:40 200 MLS/HR Vancomycin HCl (Consult) 1 ea UD PRN N/A 03/14/17 06:00 04/13/17 05:59 Carbidopa/Levodopa (Sinemet 25/ 100MG Tab) 1.5 tab 0500,0800,1100,1400,1700 NG 03/14/17 11:00 04/10/17 10:59 03/16/17 10:19 1.5 TAB Ropinirole HCl (Requip Tab) 4 mg QID@0500,0900,1300,1700 NG 03/14/17 09:00 04/11/17 12:59 03/16/17 08:06 4 MG Carbidopa/Levodopa (Sinemet 25/ 100MG Tab) 1 tab HS NG 03/14/17 21:00 04/13/17 20:59 03/15/17 20:00 1 TAB Piperacillin Sod/ Tazobactam Sod 3.375 gm/Dextrose 115 ml @ 28.75 mls/ hr Q8H IV 03/14/17 10:00 03/21/17 09:59 03/16/17 10:19 28.75 MLS/HR Ropinirole HCl (Requip Tab) 6 mg HS NG 03/14/17 21:00 04/13/17 20:59 03/15/17 20:00 6 MG Insulin Aspart (novoLOG ASPART) SLIDING SCALE Q6 SC 03/14/17 09:00 04/13/17 08:59 Glucose (Glucose 40% Gel) 15-30 GRAMS 15 GRAMS... UD PRN PO 03/14/17 08:45 04/13/17 08:44 Glucose (Glucose Chew Tab) 4-8 Tablets 4 Tabl... UD PRN PO 03/14/17 08:45 04/13/17 08:44 Dextrose (Dextrose 50% 50ML Syringe) 25-50ML OF 50% DW IV FOR... UD PRN IV 03/14/17 08:45 04/13/17 08:44 Glucagon (Glucagon Inj) 1 mg UD PRN SQ 03/14/17 08:45 04/13/17 08:44 Miscellaneous Information (Consult Glycemic Management Pharmacy) 1 ea UD PRN N/A 03/14/17 08:42 04/13/17 08:41 Multivitamins Therapeutic (Cerovite Liquid) 15 ml QAM NG 03/14/17 09:00 04/13/17 08:59 03/16/17 08:06 15 ML Fentanyl Citrate (Fentanyl Inj) 50 mcg Q2H PRN IV 03/14/17 09:00 03/28/17 08:59 03/16/17 08:46 50 MCG Propofol (Diprivan Iv Emulsion 100ml Vial) 1 dose UD IV 03/14/17 13:30 03/17/17 13:29 03/16/17 08:05 1 DOSE Acetaminophen 100 ml @ 400 mls/hr Q8H PRN IV 03/14/17 14:15 04/13/17 14:14 03/14/17 14:49 400 MLS/HR Dexmedetomidine HCl 200 mcg/ Sodium Chloride 50 ml @ 0 mls/hr Q0M PRN IV 03/16/17 09:00 03/20/17 08:59 Metoprolol Tartrate (Lopressor Tab) 25 mg BID PO 03/16/17 09:00 04/15/17 08:59 03/16/17 10:19 25 MG Docusate Sodium (coLACE SYRUP) 100 mg BID PRN PO 03/16/17 09:00 04/15/17 08:59 03/16/17 10:20 100 MG Enteral Nutritional Formula (Peptamen Intense VHP) 1,000 ml UD PRN OG 03/16/17 09:15 04/15/17 09:14 Vital Signs: Date Time Temp Pulse Resp B/P (MAP) Pulse Ox O2 Delivery O2 Flow Rate FiO2 03/16/17 07:25 30 03/16/17 06:01 71 20 146/76 97 03/16/17 05:14 30 03/16/17 05:01 75 20 150/97 100 03/16/17 04:01 87 20 130/86 95 03/16/17 04:00 36.8 03/16/17 04:00 95 Mechanical Ventilator 30 03/16/17 04:00 30 03/16/17 03:01 75 20 112/75 95 03/16/17 02:35 40 03/16/17 02:01 73 20 134/82 91 03/16/17 01:14 78 20 110/80 97 03/16/17 00:01 81 20 103/62 90 03/15/17 23:59 30 03/15/17 23:59 96 Mechanical Ventilator 30 03/15/17 23:59 36.8 03/15/17 23:01 79 20 116/75 97 03/15/17 22:25 30 03/15/17 22:01 61 20 147/76 93 03/15/17 21:01 66 20 123/73 93 03/15/17 20:00 79 20 138/75 95 03/15/17 20:00 99 Mechanical Ventilator 30 03/15/17 20:00 36.9 03/15/17 20:00 30 03/15/17 19:41 30 03/15/17 19:01 79 20 124/66 95 03/15/17 15:16 30 03/15/17 15:16 36.6 78 20 128/73 (91) 99 Mechanical Ventilator 30 03/15/17 15:16 Mechanical Ventilator 30 03/15/17 15:00 65 20 128/70 97 03/15/17 14:10 30 03/15/17 14:01 82 20 106/65 93 03/15/17 14:00 82 20 93 03/15/17 13:52 37.4 74 20 127/72 (90) 99 Mechanical Ventilator 30 03/15/17 13:01 77 20 127/72 95 03/15/17 13:00 76 20 95 03/15/17 12:00 68 20 122/76 95 03/15/17 11:20 36.6 78 20 128/73 (91) 95 Mechanical Ventilator 30 03/15/17 11:20 30 03/15/17 11:20 Mechanical Ventilator 30 03/15/17 11:17 30 03/15/17 11:00 78 20 130/86 97 03/15/17 11:00 78 20 130/86 97 Laboratory Results: Last 24 Hours Test 03/15/17 10:55 03/15/17 16:06 03/16/17 05:36 03/16/17 05:39 Bedside Glucose 108 mg/dl 110 mg/dl 119 mg/dl White Blood Count 9.04 K/uL Red Blood Count 3.79 M/uL Hemoglobin 9.0 g/dL Hematocrit 29.1 % Mean Corpuscular Volume 76.8 fL Mean Corpuscular Hemoglobin 23.7 pg Mean Corpuscular Hemoglobin Concent 30.9 g/dl Platelet Count 298 K/uL Mean Platelet Volume 9.1 fL Neutrophils (%) (Auto) 75.2 % Lymphocytes (%) (Auto) 12.9 % Monocytes (%) (Auto) 9.3 % Eosinophils (%) (Auto) 2.1 % Basophils (%) (Auto) 0.2 % Neutrophils # (Auto) 6.79 K/uL Lymphocytes # (Auto) 1.17 K/uL Monocytes # (Auto) 0.84 K/uL Eosinophils # (Auto) 0.19 K/uL Basophils # (Auto) 0.02 K/uL RDW Standard Deviation 45.4 fL RDW Coefficient of Variation 16.3 % Immature Granulocyte % (Auto) 0.3 % Immature Granulocyte # (Auto) 0.03 K/uL Sodium Level 142 mmol/L Potassium Level 3.9 mmol/L Chloride Level 107 mmol/L Carbon Dioxide Level 31 mmol/L Anion Gap 4.0 mmol/L Blood Urea Nitrogen 11 mg/dl Creatinine 1.00 mg/dl Est Creatinine Clear Calc Drug Dose 82.8 ml/min Estimated GFR () 91.8 Estimated GFR (Non- 79.2 BUN/Creatinine Ratio 10.8 Random Glucose 104 mg/dl Calcium Level 8.2 mg/dl Phosphorus Level 1.8 mg/dl Magnesium Level 2.3 mg/dl Vancomycin Level Trough 17.8 mcg/ml Test 03/16/17 05:50 03/16/17 10:26 Blood Gas Sample Site R Radial Bedside Blood Gas pH (LAB) 7.46 Bedside Blood Gas pCO2 (LAB) 43 mmHg Bedside Blood Gas pO2 (LAB) 67 mmHg Bedside Blood Gas HCO3 (LAB) 30 meq/L Bedside Blood Gas Total CO2 31 mEq/l Bedside Blood Gas Base Excess (LAB) 6.0 meq/L Bedside Blood Gas O2 Saturation 94.0 % Luigi Test Pass Oxygen Delivery Device Ventilator Bedside Oxygen Rate (breaths/min) 20 Blood Gas Minute Ventilation 9.3 Bedside FiO2 30 % Blood Gas Tidal Volume 500 Blood Gas PEEP 5
--- NOTE | 2017-03-16 11:49 | Progress Note ---
Internal Med Progress Note Date of Service: Mar 16, 2017. Provider Documentation: SUBJECTIVE: Patient remains intubated. Unable to wean off Sedated- changed to IV Precedex OBJECTIVE: Vital Signs-as noted below Exam: General Appearance: Sedated Head: normocephalic, atraumatic Eyes: PERRLA ENT: other (endotracheal tube present) Respiratory: rhonchi, other (dullness and crackles in left lung field) Cardiovascular: Regular rate and rhythm Abdomen: non tender, no masses Genitourinary - Male: other (Oliver present) Lab data as noted below. ASSESSMENT & PLAN: 66 year old M with severe Parkinson's disease who is S/P Shoulder surgery presenting with episodic hypotension and lightheadedness. He never became hypotensive during this admission, but was hypoxic and unable to be weaned off. He underwent a CT PE in light of bedbound status and recent shoulder surgery 8 weeks ago, which was negative for PE with some atelectasis present. The following morning, pulm saw him and an ABG revealed hypercapnia with a CO2 79. BIPAP was started but he couldn't tolerate so he was taken off. A few hours later he became agitated and trying to leave his room, puling off his oxygen, etc. A repeat ABG revealed persistent CO2 of 76 and he was given Ativan and put back on the BIPAP and made NPO. Around 8pm he was taken off BIPAP per resp and after one hour of normal mentation and proving he could swallow pills, the nurse requested food for him and he was allowed to eat. Later that night he was put back on the BIPAP and vomited with aspiration and subsequent intubation. ASSESSMENT AND PLAN : ACUTE HYPERCAPNIC RESPIRATORY FAILURE : -Secondary to pneumonia, left sided, probably aspiration in setting of chronic parkinsons disease -S/P Intubation - difficult to wean him off. May need to consider tracheostomy -S/P Bronchoscopy - secretions + cultures sent x 2. Last one today 03/16/17 -IV antibiotics - Vancomycin, Zosyn- discontinued as cultures from bronchoscopy negative -Work up- CXR, cultures- negative so far -Appreciate pulmonary inputs ELEVATED TROPONIN Mild elevation, trended down. Likely demand ischemia -TTE- no acute wall motion abnormalities MICROCYTIC ANEMIA- Iron deficient -On iron supplement which were started this admission PARKINSONS DISEASE, CHRONIC - On Sinemet and Requip. DVT PROPHYLAXIS - SQ Lovenox GI PROPHYLAXIS -Pepcid CODE STATUS: FULL DISPOSITION Continue with ICU monitoring Bobbin Dumper on board. Discussed with him Vital Signs: Date Time Temp Pulse Resp B/P (MAP) Pulse Ox O2 Delivery O2 Flow Rate FiO2 03/16/17 11:01 30 03/16/17 07:25 30 03/16/17 06:01 71 20 146/76 97 03/16/17 05:14 30 03/16/17 05:01 75 20 150/97 100 03/16/17 04:01 87 20 130/86 95 03/16/17 04:00 36.8 03/16/17 04:00 95 Mechanical Ventilator 30 03/16/17 04:00 30 03/16/17 03:01 75 20 112/75 95 03/16/17 02:35 40 03/16/17 02:01 73 20 134/82 91 03/16/17 01:14 78 20 110/80 97 03/16/17 00:01 81 20 103/62 90 03/15/17 23:59 30 03/15/17 23:59 96 Mechanical Ventilator 30 03/15/17 23:59 36.8 03/15/17 23:01 79 20 116/75 97 03/15/17 22:25 30 03/15/17 22:01 61 20 147/76 93 03/15/17 21:01 66 20 123/73 93 03/15/17 20:00 79 20 138/75 95 03/15/17 20:00 99 Mechanical Ventilator 30 03/15/17 20:00 36.9 03/15/17 20:00 30 03/15/17 19:41 30 03/15/17 19:01 79 20 124/66 95 03/15/17 15:16 30 03/15/17 15:16 36.6 78 20 128/73 (91) 99 Mechanical Ventilator 30 03/15/17 15:16 Mechanical Ventilator 30 03/15/17 15:00 65 20 128/70 97 03/15/17 14:10 30 03/15/17 14:01 82 20 106/65 93 03/15/17 14:00 82 20 93 03/15/17 13:52 37.4 74 20 127/72 (90) 99 Mechanical Ventilator 30 03/15/17 13:01 77 20 127/72 95 03/15/17 13:00 76 20 95 03/15/17 12:00 68 20 122/76 95 Lab Results: Results Past 24 Hours Test 03/15/17 16:06 03/16/17 05:36 03/16/17 05:39 03/16/17 05:50 Range/Units Bedside Glucose 110 119 70-99 mg/dl White Blood Count 9.04 4.8-10.8 K/uL Red Blood Count 3.79 4.7-6.1 M/uL Hemoglobin 9.0 14.0-18.0 g/dL Hematocrit 29.1 42-52 % Mean Corpuscular Volume 76.8 80-100 fL Mean Corpuscular Hemoglobin 23.7 25-34 pg Mean Corpuscular Hemoglobin Concent 30.9 32-36 g/dl Platelet Count 298 130-400 K/uL Mean Platelet Volume 9.1 7.4-10.4 fL Neutrophils (%) (Auto) 75.2 % Lymphocytes (%) (Auto) 12.9 % Monocytes (%) (Auto) 9.3 % Eosinophils (%) (Auto) 2.1 % Basophils (%) (Auto) 0.2 % Neutrophils # (Auto) 6.79 1.4-6.5 K/uL Lymphocytes # (Auto) 1.17 1.2-3.4 K/uL Monocytes # (Auto) 0.84 0.11-0.59 K/uL Eosinophils # (Auto) 0.19 0-0.5 K/uL Basophils # (Auto) 0.02 0-0.2 K/uL RDW Standard Deviation 45.4 36.4-46.3 fL RDW Coefficient of Variation 16.3 11.5-14.5 % Immature Granulocyte % (Auto) 0.3 % Immature Granulocyte # (Auto) 0.03 0.00-0.02 K/uL Sodium Level 142 136-145 mmol/L Potassium Level 3.9 3.5-5.1 mmol/L Chloride Level 107 98-107 mmol/L Carbon Dioxide Level 31 21-32 mmol/L Anion Gap 4.0 3-11 mmol/L Blood Urea Nitrogen 11 7-18 mg/dl Creatinine 1.00 0.60-1.40 mg/dl Est Creatinine Clear Calc Drug Dose 82.8 ml/min Estimated GFR () 91.8 Estimated GFR (Non- 79.2 BUN/Creatinine Ratio 10.8 10-20 Random Glucose 104 70-99 mg/dl Calcium Level 8.2 8.5-10.1 mg/dl Phosphorus Level 1.8 2.5-4.9 mg/dl Magnesium Level 2.3 1.8-2.4 mg/dl Vancomycin Level Trough 17.8 SEE COMMENT mcg/ml Blood Gas Sample Site R Radial Bedside Blood Gas pH (LAB) 7.46 7.35-7.45 Bedside Blood Gas pCO2 (LAB) 43 35-46 mmHg Bedside Blood Gas pO2 (LAB) 67 80-95 mmHg Bedside Blood Gas HCO3 (LAB) 30 19-24 meq/L Bedside Blood Gas Total CO2 31 24-31 mEq/l Bedside Blood Gas Base Excess (LAB) 6.0 -9-1.8 meq/L Bedside Blood Gas O2 Saturation 94.0 90-95 % Luigi Test Pass Oxygen Delivery Device Ventilator Bedside Oxygen Rate (breaths/min) 20 Blood Gas Minute Ventilation 9.3 Bedside FiO2 30 % Blood Gas Tidal Volume 500 Blood Gas PEEP 5 Test 03/16/17 10:26 Range/Units
[2017-03-16] MEDS: DexMEDEtomidine HCL INJ 200 MCG in SODIUM CHLORIDE 0.9% 50ML 48 ML IV PRN ×3 (12:22→17:24)
[2017-03-16] MEDS: HydrALAZINE HCL 20 MG/ML VIAL IV. PRN ×3 (16:04→22:21)
[2017-03-16] MEDS ORDERED: FENTANYL CITRATE INJ 50 MCG/1 ML 2 ML VIAL IV PRN (17:00)
[2017-03-16] MEDS ORDERED: NURSING VERBAL MED ORDER ONE ×3 (17:00→18:45)
[2017-03-16] MEDS ORDERED: PROPOFOL IV EMULSION 10 MG/ML 100 ML VIAL IV ONE (17:27)
[2017-03-16] MEDS ORDERED: DexMEDEtomidine HCL INJ 1,000 MCG in SODIUM CHLORIDE 0.9% 250ML 240 ML IV PRN (19:00)
--- NOTE | 2017-03-16 19:53 | DIAGNOSTIC IMAGING REPORT ---
CHEST ONE VIEW PORTABLE CLINICAL HISTORY: Aspiration. COMPARISON STUDY: Chest radiograph March 16, 2017 6:29 AM. FINDINGS: The tip of the endotracheal tube is 3.8 cm above the cory. The tip of the nasogastric tube is slightly coiled and projects over the gastroesophageal junction. There is no pneumothorax. Electronic device projects of the left hemithorax. There are persistent bilateral pleural effusions with bibasilar opacities. Interstitial thickening persists. Cardiomediastinal silhouette is stable. IMPRESSION: 1. Satisfactory positioning of the endotracheal tube. 2. Tip of nasogastric tube is slightly coiled and projects over the gastroesophageal junction. 3. Findings suggestive of persistent pulmonary edema with bilateral pleural effusions and bibasilar opacities which could reflect consolidation or atelectasis. Electronically signed by: Nilay Perdomo M.D. 03/16/2017 7:51 PM Dictated Date/Time: 03/16/2017 7:49 PM
[2017-03-16] MEDS: ENOXAPARIN 40 MG/0.4 ML SYR SC SCH (20:55)
[2017-03-16] MEDS ORDERED: HydrALAZINE HCL 20 MG/ML VIAL IV. STA (22:15)
[2017-03-17] VITALS (19 sets, daily range): BP systolic 91–158; BP diastolic 57–90; PULSE 55–96; TEMP 36.6–37.2; O2SAT 92–97
[2017-03-17] MEDS: PROPOFOL IV EMULSION 10 MG/ML 100 ML VIAL IV SCH ×4 (01:13→11:51)
[2017-03-17] MEDS: LEValbuterol HFA 15GM INHALER INH SCH ×4 (01:28→21:00)
[2017-03-17] MEDS: IPRATROPIUM BROMIDE HFA INHALER INH SCH ×4 (01:28→21:00)
[2017-03-17] MEDS: CARBIDOPA/LEVODOPA 25/100MG TAB NG SCH ×6 (04:47→17:02)
[2017-03-17] MEDS: FAMOTIDINE IV INJ 20 MG in DEXTROSE 5% 100ML 100 ML IV SCH (04:48)
[2017-03-17] MEDS: ROPINIROLE HCL 1 MG TAB NG SCH ×6 (04:48→21:00)
[2017-03-17 05:21] LABS: BASO % 0.3 %; BASO ABS # 0.02 K/uL (0-0.2); EOS % 3.5 %; IG% 0.1 %; LYMPH % 10.9 %; LYMPH ABS # 0.74 K/uL (1.2-3.4); MEAN CELL VOLUME 74.9 fL (80-100); MEAN CORPUSCULAR HGB CONC 30.6 g/dl (32-36); MEAN PLATELET VOLUME 9.2 fL (7.4-10.4); MONO % 10.2 %; PLATELET COUNT 331 K/uL (130-400); RED BLOOD COUNT 4.27 M/uL (4.7-6.1); WHITE BLOOD COUNT 6.79 K/uL (4.8-10.8)
[2017-03-17 05:47] LABS: BUN/CREATININE RATIO 11.2 (10-20); CALCIUM 7.8 mg/dl (8.5-10.1); COMPLETE YES; CREATININE 0.88 mg/dl (0.60-1.40); ECHINOCYTES 1+; MAGNESIUM 2.2 mg/dl (1.8-2.4); OVALOCYTES 1+; POTASSIUM 3.8 mmol/L (3.5-5.1)
[2017-03-17 05:48] LABS: PHOSPHORUS 3.2 mg/dl (2.5-4.9)
[2017-03-17] MEDS: INSULIN ASPART 100 UNITS/ML 3 ML PEN SC SCH ×3 (05:59→18:00)
--- NOTE | 2017-03-17 07:03 | DIAGNOSTIC IMAGING REPORT ---
CHEST ONE VIEW PORTABLE CLINICAL HISTORY: intubation tube position COMPARISON STUDY: 03/16/2017 FINDINGS: Endotracheal tube 3 cm above the cory. Nasogastric tube remains at the gastroesophageal junction. Bilateral pleural effusions similar as compared to the prior study. Mild bilateral lower lobe consolidative changes also similar. Components of cardiac failure versus pulmonary edema are similar. IMPRESSION: Similar study. Endotracheal tube 3 cm above the cory. Radiographic findings of pulmonary edema unchanged Electronically signed by: Yobany Hernandez M.D. 03/17/2017 7:02 AM Dictated Date/Time: 03/17/2017 6:56 AM
[2017-03-17] MEDS ORDERED: BISACODYL 5 MG TABEC PO PRN (08:00)
[2017-03-17] MEDS ORDERED: MAGNESIUM HYDROXIDE SUSP 30 ML UDC PO PRN (08:00)
[2017-03-17] MEDS ORDERED: BISACODYL 5 MG TABEC PO ONE (08:00)
[2017-03-17] MEDS: MULTIVITAMINS W/MINERALS 15ML UDP NG SCH (08:36)
[2017-03-17] MEDS: METOPROLOL TARTRATE 25 MG TAB PO SCH ×2 (08:37→21:59)
--- NOTE | 2017-03-17 08:46 | Critical Care Progress Note ---
Critical Care Progress Note Date of Service Mar 17, 2017. ICU Day ICU Day Number: [address] Birch Subjective Intubated and sedated, no significant events overnight Objective General Appearance: WD/WN, Head: normocephalic, atraumatic Eyes: PERRLA ENT: other (endotracheal tube present) Respiratory: rhonchi, scattered Cardiovascular: Regular rate and rhythm Abdomen: non tender, no masses Genitourinary - Male: other (Oliver present) Current SOFA Score SOFA Score Response (Comments) Value Platelets (x10) > 150 0 Bilirubin (mg/dL) < 1.2 0 [place] Coma Score 6 - 9 (9T) 3 Level of Hypotension No Hypotension 0 Creatinine (mg/dL) < 1.2 0 Total 3 Previous SOFA Scores 3 03/15/2017 Assessment & Plan Reason Critically Ill: Hypoxic respiratory failure PLAN: Neuro: Severe Parkinson's disease * Continue Parkinson's medication * Immediate release form ordered via OG tube * Precedex did not supply adequate sedation, converted back to propofol * Sedation holiday and likely terminal extubation today Resp: Hypoxic respiratory failure with hypercarbia * Probable aspiration * Lavage culture: Light normal lauren * Patient at increased risk for a tracheostomy given a neuromuscular disease * Had long discussion with the patient's , will likely attempts extubation today and base goals of care on progress of respiratory status CV: Sinus rhythm with occasional PVC on monitor for arrhythmias Fluids/Renal: * Starting maintenance fluids half NSS with 20 in each Q potassium at 75 ML's per hour ID: Aspiration pneumonitis * Discontinued antibiotics based on bronchoscopy findings of distal airways and negative pro calcitonin GI/Nutrition: Possible aspiration yesterday, tube feeds on hold pending extubation today Heme: Microcytic anemia, likely anemia of chronic disease reviewed anemia studies * DVT prophylaxis with Lovenox 40 mg Endocrine: Blood glucose within acceptable limits CODE STATUS: Full resuscitation, will have additional discussion with [facility] and regarding goals of care. Currently she reports the patient has been wheelchair bound for 6 months and this is predominantly an unacceptable life to him. He underwent soled shoulder surgery in attempts to regain mobility which has not occurred. He has made numerous statements that he does not want to be kept alive dominant machines, and has recently told his family and several physicians that he is on the way out. This point I think it is reasonable to intent extubation and not reintubate for future respiratory failure. I have personally spent 50 minutes of critical care time in the direct management of this patient. This is a life/limb threatening event. This includes time spent evaluating patient, direct bedside care, chart review, placing orders, interpretation of diagnostic studies, discussion with consultants, patient, and family members, as well as other required patient management activities. This time is exclusive of all separately billable procedures, and teaching time and separate from and in addition to any other critical care service time. I had an extensive discussion with the patient's , stepdaughter, and patient 's sister regarding his current medical status, goals of care, and living will. It is clear the patient does not want to be kept alive by her relative or artificial means, this includes feeding tubes and ventilators. It appears that the patient is an end-stage Parkinson's disease which is now affecting his ability to swallow and adequately ventilate. Patient recently aspirated and continues to have issues with aspiration. In attempting to liberate him from the ventilator he becomes very agitated with lightening of sedation and am unable to adequately tell his parameters to see if he would be able to safely extubate and clear his secretions. Additionally I think his ability to clear secretions will be compromised by his Parkinson's disease. Options for terminal extubation after his optimization and excepting the results if he proceeds to respiratory failure and allow natural versus a tracheostomy as a temporizing procedure to safely liberate the patient from the mechanical ventilator were discussed. All are in agreement is not in accordance with the patient's wishes to undergo a tracheostomy as this will not correct his underlying neuromuscular disorder and will continue to be at risk for subsequent aspiration and pneumonia's. Accordingly I believe the patient is an end-stage condition without a reasonable chance and meaningful recovery that would be acceptable to the patient. We will extubate the patient after his optimization today, with the understanding we will not replace the breathing tube should he fail. His CODE STATUS has been updated to DO NOT RESUSCITATE and DO NOT INTUBATE. At this point were waiting for the patient's daughter to arrive and any additional family members. Patient's is appropriately grieving and has additional family members for support. I discussed this case with the hospitalist Dr. Carter Consults & Procedures Consultants: Pulmonary: Cable Procedures: Bronchoscopy March 14, March 16 Data Medications: Current Inpatient Medications Medications (Trade) Dose Ordered Sig/Luz Route Start Time Stop Time Status Last Admin Dose Admin Enoxaparin Sodium (Lovenox Inj) 40 mg Q24H SC 03/11/17 21:00 04/10/17 20:59 03/16/17 20:55 40 MG Famotidine 20 mg/ Dextrose 102 ml @ 200 mls/hr Q12@0600,1800 IV 03/14/17 06:00 04/13/17 05:59 03/17/17 04:48 200 MLS/HR Piperacillin Sod/ Tazobactam Sod (Consult) 1 ea UD PRN N/A 03/14/17 05:30 04/13/17 05:29 Future Hold Levalbuterol (Xopenex Hfa Inhaler) 4 puffs Q6R INH 03/14/17 06:00 04/13/17 05:59 03/17/17 07:17 4 PUFFS Ipratropium [place] (Atrovent Hfa Inhaler) 4 puffs Q6R INH 03/14/17 06:00 04/13/17 05:59 03/17/17 07:17 4 PUFFS Vancomycin HCl 1500 mg/Sodium Chloride 530 ml @ 200 mls/hr Q12H IV 03/14/17 18:00 03/21/17 17:59 Future Hold 03/16/17 05:40 200 MLS/HR Vancomycin HCl (Consult) 1 [facility] PRN N/A 03/14/17 06:00 04/13/17 05:59 Future Hold Carbidopa/Levodopa (Sinemet 25/ 100MG Tab) 1.5 tab 0500,0800,1100,1400,1700 NG 03/14/17 11:00 04/10/17 10:59 03/17/17 04:47 1.5 TAB Ropinirole HCl (Requip Tab) 4 mg QID@0500,0900,1300,1700 NG 03/14/17 09:00 04/11/17 12:59 03/17/17 04:48 4 MG Carbidopa/Levodopa (Sinemet 25/ 100MG Tab) 1 tab HS NG 03/14/17 21:00 04/13/17 20:59 03/16/17 20:53 1 TAB Piperacillin Sod/ Tazobactam Sod 3.375 gm/Dextrose 115 ml @ 28.75 mls/ hr Q8H IV 03/14/17 10:00 03/21/17 09:59 Future Hold 03/16/17 10:19 28.75 MLS/HR Ropinirole HCl (Requip Tab) 6 mg HS NG 03/14/17 21:00 04/13/17 20:59 03/16/17 20:53 6 MG Insulin Aspart (novoLOG ASPART) SLIDING SCALE Q6 SC 03/14/17 09:00 04/13/17 08:59 Glucose (Glucose 40% Gel) 15-30 GRAMS 15 GRAMS... UD PRN PO 03/14/17 08:45 04/13/17 08:44 Glucose (Glucose Chew Tab) 4-8 Tablets 4 Tabl... UD PRN PO 03/14/17 08:45 04/13/17 08:44 Dextrose (Dextrose 50% 50ML Syringe) 25-50ML OF 50% DW IV FOR... UD PRN IV 03/14/17 08:45 04/13/17 08:44 Glucagon (Glucagon Inj) 1 mg UD PRN SQ 03/14/17 08:45 04/13/17 08:44 Miscellaneous Information (Consult Glycemic Management Pharmacy) 1 ea UD PRN N/A 03/14/17 08:42 04/13/17 08:41 Multivitamins Therapeutic (Cerovite Liquid) 15 ml QAM NG 03/14/17 09:00 04/13/17 08:59 03/16/17 08:06 15 ML Fentanyl Citrate (Fentanyl Inj) 50 mcg Q2H PRN IV 03/14/17 09:00 03/28/17 08:59 03/16/17 21:59 50 MCG Acetaminophen 100 ml @ 400 mls/hr Q8H PRN IV 03/14/17 14:15 04/13/17 14:14 03/14/17 14:49 400 MLS/HR Metoprolol Tartrate (Lopressor Tab) 25 mg BID PO 03/16/17 09:00 04/15/17 08:59 03/16/17 20:53 25 MG Docusate Sodium (coLACE SYRUP) 100 mg BID PRN PO 03/16/17 09:00 04/15/17 08:59 03/16/17 10:20 100 MG Enteral Nutritional Formula (Peptamen Intense VHP) 1,000 ml UD PRN OG 03/16/17 09:15 04/15/17 09:14 Hydralazine HCl (HydrALAZINE INJ) 10 mg Q6 PRN IV. 03/16/17 15:00 04/15/17 14:59 03/16/17 22:21 10 MG Propofol (Diprivan Iv Emulsion 100ml Vial) 1 dose UD IV 03/16/17 17:45 03/19/17 17:44 03/17/17 05:19 1 DOSE Dexmedetomidine HCl 1000 mcg/ Sodium Chloride 250 ml @ 0 mls/hr Q0M PRN IV 03/16/17 19:00 03/20/17 18:59 03/16/17 19:24 35.7 MLS/HR Bisacodyl (Dulcolax Tab) 5 mg BID PRN PO 03/17/17 08:00 04/16/17 07:59 Magnesium Hydroxide (Milk Of Magnesia Susp) 30 ml Q6H PRN PO 03/17/17 08:00 04/16/17 07:59 Vital Signs: Date Time Temp Pulse Resp B/P (MAP) Pulse Ox O2 Delivery O2 Flow Rate FiO2 03/17/17 07:18 30 03/17/17 05:03 30 03/17/17 04:16 56 20 128/57 (80) 95 Mechanical Ventilator 03/17/17 04:01 36.6 55 20 108/71 (83) 95 Mechanical Ventilator 03/17/17 04:00 95 Mechanical Ventilator 03/17/17 04:00 30 03/17/17 03:46 56 20 96/63 (74) 94 Mechanical Ventilator 03/17/17 03:31 61 20 107/58 (74) 95 Mechanical Ventilator 03/17/17 03:16 61 20 94/57 (69) 95 Mechanical Ventilator 03/17/17 03:05 69 26 114/64 (81) 96 Mechanical Ventilator 03/17/17 02:46 64 23 98/62 (74) 96 Mechanical Ventilator 03/17/17 02:37 63 22 93/59 (70) 96 Mechanical Ventilator 03/17/17 02:16 55 20 106/69 (81) 96 Mechanical Ventilator 03/17/17 02:01 55 20 91/78 (82) 95 Mechanical Ventilator 03/17/17 01:55 55 20 92/63 (73) 95 Mechanical Ventilator 30 03/17/17 01:28 30 03/17/17 01:09 63 20 106/70 (82) 94 Mechanical Ventilator 30 03/17/17 00:01 30 03/17/17 00:01 95 Mechanical Ventilator 30 03/17/17 00:01 36.6 59 20 122/70 (87) 92 Mechanical Ventilator 30 03/16/17 23:01 59 20 122/70 (87) 91 Mechanical Ventilator 30 03/16/17 22:38 30 03/16/17 22:32 61 20 135/79 (97) 92 Mechanical Ventilator 30 03/16/17 22:12 61 20 178/98 (124) 94 Mechanical Ventilator 30 03/16/17 22:01 59 20 184/102 (129) 96 Mechanical Ventilator 30 03/16/17 21:44 62 20 183/99 (127) 96 Mechanical Ventilator 30 03/16/17 21:01 61 20 188/101 (130) 95 Mechanical Ventilator 30 03/16/17 20:01 36.7 64 20 181/100 (127) 95 Mechanical Ventilator 30 03/16/17 20:00 30 03/16/17 20:00 95 Mechanical Ventilator 30 03/16/17 19:51 30 03/16/17 19:09 66 20 177/104 (128) 93 Mechanical Ventilator 30 03/16/17 19:01 65 20 176/100 (125) 93 Mechanical Ventilator 30 03/16/17 18:35 67 20 174/100 (124) 93 03/16/17 18:01 68 20 170/111 (130) 93 03/16/17 18:00 68 20 93 03/16/17 17:38 30 03/16/17 17:01 73 20 129/71 (90) 93 03/16/17 17:00 73 20 94 03/16/17 16:18 68 20 154/96 (115) 95 03/16/17 16:01 66 20 191/113 (139) 98 03/16/17 16:00 64 20 98 03/16/17 16:00 30 03/16/17 16:00 37.3 90 20 199/110 (139) 97 Mechanical Ventilator 30 03/16/17 16:00 97 Mechanical Ventilator 30 03/16/17 14:32 30 03/16/17 12:00 30 03/16/17 12:00 36.6 62 20 151/93 (112) 97 Mechanical Ventilator 30 03/16/17 12:00 97 Mechanical Ventilator 30 03/16/17 11:01 30 03/16/17 10:01 74 20 122/71 (88) 95 Laboratory Results: Last 24 Hours Test 03/16/17 10:26 03/16/17 12:17 03/16/17 18:20 03/17/17 00:06 Procalcitonin 0.21 ng/ml Bedside Glucose 103 mg/dl 105 mg/dl 99 mg/dl Test 03/17/17 02:20 03/17/17 04:49 03/17/17 05:58 Troponin I 0.016 ng/ml White Blood Count 6.79 K/uL Red Blood Count 4.27 M/uL Hemoglobin 9.8 g/dL Hematocrit 32.0 % Mean Corpuscular Volume 74.9 fL Mean Corpuscular Hemoglobin 23.0 pg Mean Corpuscular Hemoglobin Concent 30.6 g/dl Platelet Count 331 K/uL Mean Platelet Volume 9.2 fL Neutrophils (%) (Auto) 75.0 % Lymphocytes (%) (Auto) 10.9 % Monocytes (%) (Auto) 10.2 % Eosinophils (%) (Auto) 3.5 % Basophils (%) (Auto) 0.3 % Neutrophils # (Auto) 5.09 K/uL Lymphocytes # (Auto) 0.74 K/uL Monocytes # (Auto) 0.69 K/uL Eosinophils # (Auto) 0.24 K/uL Basophils # (Auto) 0.02 K/uL RDW Standard Deviation 44.8 fL RDW Coefficient of Variation 16.4 % Immature Granulocyte % (Auto) 0.1 % Immature Granulocyte # (Auto) 0.01 K/uL Ovalocytes 1+ Echinocytes 1+ Sodium Level 143 mmol/L Potassium Level 3.8 mmol/L Chloride Level 109 mmol/L Carbon Dioxide Level 27 mmol/L Anion Gap 7.0 mmol/L Blood Urea Nitrogen 10 mg/dl Creatinine 0.88 mg/dl Est Creatinine Clear Calc Drug Dose 94.1 ml/min Estimated GFR () 105.2 Estimated GFR (Non- 90.8 BUN/Creatinine Ratio 11.2 Random Glucose 84 mg/dl Calcium Level 7.8 mg/dl Phosphorus Level 3.2 mg/dl Magnesium Level 2.2 mg/dl Procalcitonin 0.16 ng/ml Bedside Glucose 96 mg/dl
[2017-03-17] MEDS: SODIUM CHLOR 0.45% + 20MEQ KCL 1,000 ML IV SCH ×2 (10:11→22:16)
--- NOTE | 2017-03-17 10:30 | Palliative Care Consultation ---
Consultation Date of Consultation: Mar 17, 2017. Requesting Physician: Dr. Birch Attending Physician: Dr. Martha Carter Reason for Consultation: Goals of care History of Present Illness This 66 year old male patient presented to the ED with c/o low blood pressure. Patient has a history of advanced Parkinson's disease with deep brain stimulator and others listed below. He recently had shoulder surgery in attempt to increase his mobility, as recently he has been essentially wheelchair bound with an overall decline in condition. Here in hospital, patient noted to be in respiratory failure and had an episode a few days ago possibly related to aspiration secondary to Parkinson's, and was ultimately a code blue with intubation. The patient was difficult to wean from sedation and ventilatory, likely due to neuromuscular disease with some potential underlying chronic respiratory disease. There was discussion of trach, PEG, and aggressive treatment. Palliative consulted and present for extensive family meeting between patient's Dominique, sister Emma, [id number] Fernando and step-daughter/POA Flavia Medina. Dr. Birch discussed at length the patient's medical conditions (see critical care progress note) and potential treatments. We reviewed the patient's living will with all family present in which he was quite clear that he would not want to be kept alive by machines or feeding tube. Ultimately, the family made the decision to make patient a DNR/DNI, wean sedation, extubate patient, and given supportive care. If patient declined, they would make him comfort measures only. Past Medical/Surgical History Medical History: BPH (benign prostatic hypertrophy) Dyslipidemia GERD (gastroesophageal reflux disease) History of kidney stones HTN (hypertension) Iron deficiency anemia Overactive bladder Parkinson disease Venous insufficiency Surgical Problems: H/O inguinal hernia repair H/O shoulder surgery S/P deep brain stimulator placement S/p tonsil surgery Social History Smoking Status: Former Smoker History of Alcohol Use: No Marital Status: Housing Status: lives with significant other Review of Systems unable to obtain Allergies Coded Allergies: Sulindac (Verified Adverse Reaction, Intermediate, STOMACH IRRATION, ) Medications Current Inpatient Medications Medications (Trade) Dose Ordered Sig/Luz Route Start Time Stop Time Status Last Admin Dose Admin Enoxaparin Sodium (Lovenox Inj) 40 mg Q24H SC 03/11/17 21:00 04/10/17 20:59 03/16/17 20:55 40 MG Famotidine 20 mg/ Dextrose 102 ml @ 200 mls/hr Q12@0600,1800 IV 03/14/17 06:00 04/13/17 05:59 03/17/17 04:48 200 MLS/HR Levalbuterol (Xopenex Hfa Inhaler) 4 puffs Q6R INH 03/14/17 06:00 04/13/17 05:59 03/17/17 07:17 4 PUFFS Ipratropium [place] (Atrovent Hfa Inhaler) 4 puffs Q6R INH 03/14/17 06:00 04/13/17 05:59 03/17/17 07:17 4 PUFFS Carbidopa/Levodopa (Sinemet 25/ 100MG Tab) 1.5 tab 0500,0800,1100,1400,1700 NG 03/14/17 11:00 04/10/17 10:59 03/17/17 08:36 1.5 TAB Ropinirole HCl (Requip Tab) 4 mg QID@0500,0900,1300,1700 NG 03/14/17 09:00 04/11/17 12:59 03/17/17 08:36 4 MG Carbidopa/Levodopa (Sinemet 25/ 100MG Tab) 1 tab HS NG 03/14/17 21:00 04/13/17 20:59 03/16/17 20:53 1 TAB Ropinirole HCl (Requip Tab) 6 mg HS NG 03/14/17 21:00 04/13/17 20:59 03/16/17 20:53 6 MG Glucose (Glucose 40% Gel) 15-30 GRAMS 15 GRAMS... UD PRN PO 03/14/17 08:45 04/13/17 08:44 Glucose (Glucose Chew Tab) 4-8 Tablets 4 Tabl... UD PRN PO 03/14/17 08:45 04/13/17 08:44 Dextrose (Dextrose 50% 50ML Syringe) 25-50ML OF 50% DW IV FOR... UD PRN IV 03/14/17 08:45 04/13/17 08:44 Glucagon (Glucagon Inj) 1 mg UD PRN SQ 03/14/17 08:45 04/13/17 08:44 Miscellaneous Information (Consult Glycemic Management Pharmacy) 1 ea UD PRN N/A 03/14/17 08:42 04/13/17 08:41 Multivitamins Therapeutic (Cerovite Liquid) 15 ml QAM NG 03/14/17 09:00 04/13/17 08:59 03/17/17 08:36 15 ML Fentanyl Citrate (Fentanyl Inj) 50 mcg Q2H PRN IV 03/14/17 09:00 03/28/17 08:59 03/16/17 21:59 50 MCG Acetaminophen 100 ml @ 400 mls/hr Q8H PRN IV 03/14/17 14:15 04/13/17 14:14 03/14/17 14:49 400 MLS/HR Metoprolol Tartrate (Lopressor Tab) 25 mg BID PO 03/16/17 09:00 04/15/17 08:59 03/17/17 08:37 25 MG Docusate Sodium (coLACE SYRUP) 100 mg BID PRN PO 03/16/17 09:00 04/15/17 08:59 03/16/17 10:20 100 MG Enteral Nutritional Formula (Peptamen Intense VHP) 1,000 ml UD PRN OG 03/16/17 09:15 04/15/17 09:14 Hydralazine HCl (HydrALAZINE INJ) 10 mg Q6 PRN IV. 03/16/17 15:00 04/15/17 14:59 03/16/17 22:21 10 MG Propofol (Diprivan Iv Emulsion 100ml Vial) 1 dose UD IV 03/16/17 17:45 03/19/17 17:44 03/17/17 08:47 1 DOSE Bisacodyl (Dulcolax Tab) 5 mg BID PRN PO 03/17/17 08:00 04/16/17 07:59 Magnesium Hydroxide (Milk Of Magnesia Susp) 30 ml Q6H PRN PO 03/17/17 08:00 04/16/17 07:59 Potassium Chloride/Sodium Chloride 1,000 ml @ 75 mls/hr [id number] IV 03/17/17 08:45 04/16/17 08:44 03/17/17 10:11 75 MLS/HR Insulin Aspart (novoLOG ASPART) SLIDING SCALE Q12H SC 03/17/17 18:00 04/16/17 17:59 Physical Exam Date Time Temp Pulse Resp B/P (MAP) Pulse Ox O2 Delivery O2 Flow Rate FiO2 03/17/17 07:18 30 03/17/17 05:03 30 03/17/17 04:16 56 20 128/57 (80) 95 Mechanical Ventilator 30 03/17/17 04:01 36.6 55 20 108/71 (83) 95 Mechanical Ventilator 03/17/17 04:00 95 Mechanical Ventilator 03/17/17 04:00 30 03/17/17 03:46 56 20 96/63 (74) 94 Mechanical Ventilator 03/17/17 03:31 61 20 107/58 (74) 95 Mechanical Ventilator 30 03/17/17 03:16 61 20 94/57 (69) 95 Mechanical Ventilator 30 03/17/17 03:05 69 26 114/64 (81) 96 Mechanical Ventilator 30 03/17/17 02:46 64 23 98/62 (74) 96 Mechanical Ventilator 03/17/17 02:37 63 22 93/59 (70) 96 Mechanical Ventilator 03/17/17 02:16 55 20 106/69 (81) 96 Mechanical Ventilator 03/17/17 02:01 55 20 91/78 (82) 95 Mechanical Ventilator 03/17/17 01:55 55 20 92/63 (73) 95 Mechanical Ventilator 03/17/17 01:28 30 03/17/17 01:09 63 20 106/70 (82) 94 Mechanical Ventilator 03/17/17 00:01 30 03/17/17 00:01 95 Mechanical Ventilator 03/17/17 00:01 36.6 59 20 122/70 (87) 92 Mechanical Ventilator 03/16/17 23:01 59 20 122/70 (87) 91 Mechanical Ventilator 03/16/17 22:38 30 03/16/17 22:32 61 20 135/79 (97) 92 Mechanical Ventilator 03/16/17 22:12 61 20 178/98 (124) 94 Mechanical Ventilator 03/16/17 22:01 59 20 184/102 (129) 96 Mechanical Ventilator 03/16/17 21:44 62 20 183/99 (127) 96 Mechanical Ventilator 03/16/17 21:01 61 20 188/101 (130) 95 Mechanical Ventilator 03/16/17 20:01 36.7 64 20 181/100 (127) 95 Mechanical Ventilator 03/16/17 20:00 30 03/16/17 20:00 95 Mechanical Ventilator 30 03/16/17 19:51 30 03/16/17 19:09 66 20 177/104 (128) 93 Mechanical Ventilator 30 03/16/17 19:01 65 20 176/100 (125) 93 Mechanical Ventilator 30 03/16/17 18:35 67 20 174/100 (124) 93 03/16/17 18:01 68 20 170/111 (130) 93 03/16/17 18:00 68 20 93 03/16/17 17:38 30 03/16/17 17:01 73 20 129/71 (90) 93 03/16/17 17:00 73 20 94 03/16/17 16:18 68 20 154/96 (115) 95 03/16/17 16:01 66 20 191/113 (139) 98 03/16/17 16:00 64 20 98 03/16/17 16:00 30 03/16/17 16:00 37.3 90 20 199/110 (139) 97 Mechanical Ventilator 30 03/16/17 16:00 97 Mechanical Ventilator 30 03/16/17 14:32 30 03/16/17 12:00 30 03/16/17 12:00 36.6 62 20 151/93 (112) 97 Mechanical Ventilator 30 03/16/17 12:00 97 Mechanical Ventilator 30 03/16/17 11:01 30 General Appearance: no apparent distress Neck: no JVD Respiratory: + rhonchi (coarse throughout), + pertinent finding (mechanically ventilated at this time) Cardiovascular: regular rate, rhythm (with PACs, PVCs) Abdomen: normal bowel sounds, + distended Neurologic/Psychiatric: + pertinent finding (sedated, intubated) Skin: normal color Laboratory Results Last 24 Hours Test 03/16/17 12:17 03/16/17 18:20 03/17/17 00:06 03/17/17 02:20 Bedside Glucose 103 mg/dl 105 mg/dl 99 mg/dl Troponin I 0.016 ng/ml Test 03/17/17 04:49 03/17/17 05:58 White Blood Count 6.79 K/uL Red Blood Count 4.27 M/uL Hemoglobin 9.8 g/dL Hematocrit 32.0 % Mean Corpuscular Volume 74.9 fL Mean Corpuscular Hemoglobin 23.0 pg Mean Corpuscular Hemoglobin Concent 30.6 g/dl Platelet Count 331 K/uL Mean Platelet Volume 9.2 fL Neutrophils (%) (Auto) 75.0 % Lymphocytes (%) (Auto) 10.9 % Monocytes (%) (Auto) 10.2 % Eosinophils (%) (Auto) 3.5 % Basophils (%) (Auto) 0.3 % Neutrophils # (Auto) 5.09 K/uL Lymphocytes # (Auto) 0.74 K/uL Monocytes # (Auto) 0.69 K/uL Eosinophils # (Auto) 0.24 K/uL Basophils # (Auto) 0.02 K/uL RDW Standard Deviation 44.8 fL RDW Coefficient of Variation 16.4 % Immature Granulocyte % (Auto) 0.1 % Immature Granulocyte # (Auto) 0.01 K/uL Ovalocytes 1+ Echinocytes 1+ Sodium Level 143 mmol/L Potassium Level 3.8 mmol/L Chloride Level 109 mmol/L Carbon Dioxide Level 27 mmol/L Anion Gap 7.0 mmol/L Blood Urea Nitrogen 10 mg/dl Creatinine 0.88 mg/dl Est Creatinine Clear Calc Drug Dose 94.1 ml/min Estimated GFR () 105.2 Estimated GFR (Non- 90.8 BUN/Creatinine Ratio 11.2 Random Glucose 84 mg/dl Calcium Level 7.8 mg/dl Phosphorus Level 3.2 mg/dl Magnesium Level 2.2 mg/dl Procalcitonin 0.16 ng/ml Bedside Glucose 96 mg/dl Assessment & Plan Palliative Performance Scale: 10 % Problem list: Hypotension with lightheadedness Elevated troponin SOB upon arrival to hospital Anemia Parkinson's, advanced/end-stage Dysphagia and aspiration Respiratory failure 2/2 aspiration, s/p intubation Aspiration pneumonia Goals of care (Z51.5) Palliative care recommendations: -After long discussion between Dr. Birch, patient's Dominique, sister Emma, [id number] Bill, step-daughter/POA Flavia Adam, and myself, the decision was made to make patient a DNR/DNI. This decision was made based on the acute events, the patient's end-stage Parkinson's now with dysphagia/ aspiration/respiratory failure, and the fact that his living will very clearly outlines his wishes to not receive any heroic measures once he is at end-stage disease. He specifically would not want CPR, intubation, artificial hydration/ nutrition, dialysis and others. Copy of living will is on chart. -Family is all in agreement that they would like the sedation weaned off, patient to be extubated, with no plans of reintubation or trach. No feeding tube. Thank you kindly this consult. I will follow.
--- NOTE | 2017-03-17 10:39 | Pharmacy Progress Note ---
Glycemic: Assessment & Plan Date of Service Mar 17, 2017. Assessment & Plan Assessment: * The patient is currently receiving 0 units of insulin per day. BSGs ranging 84 - 119 mg/dl over the past 24hrs. * Current Regimen: * Bolus Insulin: * NovoLog Correction per scale every 6 hours while NPO - Goal Range: Low 140 mg/dL - High 180 mg/dL - Correction Factor: 25 mg/dL/unit - carb ratio of 1 unit per -- grams CHO consumed Plan: * BSGs continue to below goal range without insulin administration. * Plan for extubation (and thus stopping of tube feeds today). * Likely no insulin will be required so will reduce Accu-checks to q12 hours for comfort of patient. * Pharmacy will continue to monitor patient daily and write orders per [facility] inpatient glycemic control protocol. Thanks. * Please note that the plan above was derived based on current level of insulin resistance and hospital stress. These recommendations are appropriate for inpatient admission only. Plan of care upon discharge will need to be reassessed to avoid potential outpatient hypo/hyperglycemia.
[2017-03-17] MEDS ORDERED: METOCLOPRAMIDE HCL INJ 5 MG/ML 2 ML VIAL IV STA (10:44)
[2017-03-17] MEDS ORDERED: AZITHROMYCIN IV 250 MG in DEXTROSE 5% 250ML 250 ML IV ONE (11:00)
--- NOTE | 2017-03-17 11:02 | Progress Note ---
Internal Med Progress Note Date of Service: Mar 17, 2017. Provider Documentation: SUBJECTIVE : Patient remains intubated and sedated. Unable to wean off OBJECTIVE: Vital Signs-as noted below Exam: General Appearance: Sedated Head: normocephalic, atraumatic Eyes: PERRLA ENT: other (endotracheal tube present) Respiratory: rhonchi, other (dullness and crackles in left lung field) Cardiovascular: Regular rate and rhythm Abdomen: non tender, no masses Genitourinary - Male: other (Oliver present) Lab data as noted below. ASSESSMENT & PLAN: 66 year old M with severe Parkinson's disease who is S/P Shoulder surgery presenting with episodic hypotension and lightheadedness. He never became hypotensive during this admission, but was hypoxic and unable to be weaned off. He underwent a CT PE in light of bedbound status and recent shoulder surgery 8 weeks ago, which was negative for PE with some atelectasis present. The following morning, pulm saw him and an ABG revealed hypercapnia with a CO2 79. BIPAP was started but he couldn't tolerate so he was taken off. A few hours later he became agitated and trying to leave his room, puling off his oxygen, etc. A repeat ABG revealed persistent CO2 of 76 and he was given Ativan and put back on the BIPAP and made NPO. Around 8pm he was taken off BIPAP per resp and after one hour of normal mentation and proving he could swallow pills, the nurse requested food for him and he was allowed to eat. Later that night he was put back on the BIPAP and vomited with aspiration and subsequent intubation. ASSESSMENT AND PLAN : ACUTE HYPERCAPNIC RESPIRATORY FAILURE : -Secondary to pneumonia, left sided, probably aspiration in setting of chronic end stage parkinsons disease -S/P Intubation - difficult to wean him off with End stage parkinsons disease -S/P Bronchoscopy - secretions + cultures sent x 2. Last one 03/16/17 -S/P IV antibiotics - Vancomycin, Zosyn- discontinued as cultures from bronchoscopy negative -Work up- CXR, cultures- negative so far -Discussed with Assistive Technology Trainer. Had a family meeting with patient's , palliative care about terminal extubation vs tracheostomy given his end stage parkinsons disease and ongoing issues with swallowing/aspiration. Family leaning towards it but awaiting family members to help make her decision. ELEVATED TROPONIN Mild elevation, trended down. Likely demand ischemia -TTE- no acute wall motion abnormalities MICROCYTIC ANEMIA- Iron deficient PARKINSONS DISEASE, CHRONIC - On Sinemet and Requip at home. DVT PROPHYLAXIS - SQ Lovenox GI PROPHYLAXIS -Pepcid CODE STATUS: FULL DISPOSITION Continue with ICU monitoring Assistive Technology Trainer on board. Discussed with him Decision about terminal extubation vs tracheostomy pending Vital Signs: Date Time Temp Pulse Resp B/P (MAP) Pulse Ox O2 Delivery O2 Flow Rate FiO2 03/17/17 07:18 30 03/17/17 05:03 30 03/17/17 04:16 56 20 128/57 (80) 95 Mechanical Ventilator 03/17/17 04:01 36.6 55 20 108/71 (83) 95 Mechanical Ventilator 03/17/17 04:00 95 Mechanical Ventilator 03/17/17 04:00 03/17/17 03:46 56 20 96/63 (74) 94 Mechanical Ventilator 03/17/17 03:31 61 20 107/58 (74) 95 Mechanical Ventilator 03/17/17 03:16 61 20 94/57 (69) 95 Mechanical Ventilator 03/17/17 03:05 69 26 114/64 (81) 96 Mechanical Ventilator 03/17/17 02:46 64 23 98/62 (74) 96 Mechanical Ventilator 03/17/17 02:37 63 22 93/59 (70) 96 Mechanical Ventilator 03/17/17 02:16 55 20 106/69 (81) 96 Mechanical Ventilator 03/17/17 02:01 55 20 91/78 (82) 95 Mechanical Ventilator 03/17/17 01:55 55 20 92/63 (73) 95 Mechanical Ventilator 03/17/17 01:28 30 03/17/17 01:09 63 20 106/70 (82) 94 Mechanical Ventilator 03/17/17 00:01 30 03/17/17 00:01 95 Mechanical Ventilator 03/17/17 00:01 36.6 59 20 122/70 (87) 92 Mechanical Ventilator 03/16/17 23:01 59 20 122/70 (87) 91 Mechanical Ventilator 03/16/17 22:38 30 03/16/17 22:32 61 20 135/79 (97) 92 Mechanical Ventilator 03/16/17 22:12 61 20 178/98 (124) 94 Mechanical Ventilator 30 03/16/17 22:01 59 20 184/102 (129) 96 Mechanical Ventilator 30 03/16/17 21:44 62 20 183/99 (127) 96 Mechanical Ventilator 30 03/16/17 21:01 61 20 188/101 (130) 95 Mechanical Ventilator 30 03/16/17 20:01 36.7 64 20 181/100 (127) 95 Mechanical Ventilator 30 03/16/17 20:00 30 03/16/17 20:00 95 Mechanical Ventilator 30 03/16/17 19:51 30 03/16/17 19:09 66 20 177/104 (128) 93 Mechanical Ventilator 30 03/16/17 19:01 65 20 176/100 (125) 93 Mechanical Ventilator 30 03/16/17 18:35 67 20 174/100 (124) 93 03/16/17 18:01 68 20 170/111 (130) 93 03/16/17 18:00 68 20 93 03/16/17 17:38 30 03/16/17 17:01 73 20 129/71 (90) 93 03/16/17 17:00 73 20 94 03/16/17 16:18 68 20 154/96 (115) 95 03/16/17 16:01 66 20 191/113 (139) 98 03/16/17 16:00 64 20 98 03/16/17 16:00 30 03/16/17 16:00 37.3 90 20 199/110 (139) 97 Mechanical Ventilator 30 03/16/17 16:00 97 Mechanical Ventilator 30 03/16/17 14:32 30 03/16/17 12:00 30 03/16/17 12:00 36.6 62 20 151/93 (112) 97 Mechanical Ventilator 30 03/16/17 12:00 97 Mechanical Ventilator 30 03/16/17 11:01 30 Lab Results: Results Past 24 Hours Test 03/16/17 12:17 03/16/17 18:20 03/17/17 00:06 03/17/17 02:20 Range/Units Bedside Glucose 103 105 99 70-99 mg/dl Troponin I 0.016 0-0.045 ng/ml Test 03/17/17 04:49 03/17/17 05:58 Range/Units White Blood Count 6.79 4.8-10.8 K/uL Red Blood Count 4.27 4.7-6.1 M/uL Hemoglobin 9.8 14.0-18.0 g/dL Hematocrit 32.0 42-52 % Mean Corpuscular Volume 74.9 80-100 fL Mean Corpuscular Hemoglobin 23.0 25-34 pg Mean Corpuscular Hemoglobin Concent 30.6 32-36 g/dl Platelet Count 331 130-400 K/uL Mean Platelet Volume 9.2 7.4-10.4 fL Neutrophils (%) (Auto) 75.0 % Lymphocytes (%) (Auto) 10.9 % Monocytes (%) (Auto) 10.2 % Eosinophils (%) (Auto) 3.5 % Basophils (%) (Auto) 0.3 % Neutrophils # (Auto) 5.09 1.4-6.5 K/uL Lymphocytes # (Auto) 0.74 1.2-3.4 K/uL Monocytes # (Auto) 0.69 0.11-0.59 K/uL Eosinophils # (Auto) 0.24 0-0.5 K/uL Basophils # (Auto) 0.02 0-0.2 K/uL RDW Standard Deviation 44.8 36.4-46.3 fL RDW Coefficient of Variation 16.4 11.5-14.5 % Immature Granulocyte % (Auto) 0.1 % Immature Granulocyte # (Auto) 0.01 0.00-0.02 K/uL Ovalocytes 1+ Echinocytes 1+ Sodium Level 143 136-145 mmol/L Potassium Level 3.8 3.5-5.1 mmol/L Chloride Level 109 98-107 mmol/L Carbon Dioxide Level 27 21-32 mmol/L Anion Gap 7.0 3-11 mmol/L Blood Urea Nitrogen 10 7-18 mg/dl Creatinine 0.88 0.60-1.40 mg/dl Est Creatinine Clear Calc Drug Dose 94.1 ml/min Estimated GFR () 105.2 Estimated GFR (Non- 90.8 BUN/Creatinine Ratio 11.2 10-20 Random Glucose 84 70-99 mg/dl Calcium Level 7.8 8.5-10.1 mg/dl Phosphorus Level 3.2 2.5-4.9 mg/dl Magnesium Level 2.2 1.8-2.4 mg/dl Procalcitonin 0.16 0-0.5 ng/ml Bedside Glucose 96 70-99 mg/dl
[2017-03-17] MEDS: FENTANYL CITRATE INJ 50 MCG/1 ML 2 ML VIAL IV PRN (12:30)
[2017-03-17] MEDS: SCOPOLAMINE 1.5 MG TDSY TD SCH (14:25)
--- NOTE | 2017-03-17 15:23 | Critical Care Progress Note ---
Critical Care Progress Note Date of Service Mar 17, 2017. Critical Care Progress Note The patient has been successfully extubated. He is having some difficulty bringing up his secretions and requires occasional suctioning. I discussed the patient's prognosis, treatment plan, and advanced directives with him, his , his sister, his step daughter, and son all present at the bedside. He is resolute in his decision to not want feeding tubes nor tracheostomy. Additionally he initially refused reintubation, however, was brought to my attention later that he was reconsidering reintubation if necessary. When I went to the patient's bedside and discussed the particulars of the case, the increased risk of pneumonia associated with tracheostomy, the fact it won't preclude aspiration into the airways nor help with his neuromuscular breathing disorder he reaffirmed that he does not want reintubation in event of respiratory events. His focus is on quality of life remaining and not quantity of life. Accordingly he is a DNR/DNI. I discussed this with the hospitalist and the patient will be transitioned to palliative care and is stable for downgrade out of intensive care.
[2017-03-17] MEDS: CHECK SCOPOLAMINE PATCH PLACEMENT SCH (16:22)
[2017-03-17] MEDS ORDERED: NURSING VERBAL MED ORDER ONE ×2 (16:45→20:45)
[2017-03-17] MEDS: LORAZEPAM INJ 0.5 MG in SYRINGE 0.75 ML IV PRN (17:13)
[2017-03-17] MEDS ORDERED: CARBIDOPA/LEVODOPA 25/100MG EXT REL TAB PO SCH (21:45)
[2017-03-17] MEDS ORDERED: ROPINIROLE HYDROCHLORIDE PO ONE (22:15)
[2017-03-18] VITALS (8 sets, daily range): BP systolic 165–178; BP diastolic 84–93; PULSE 82–98; TEMP 36.8; O2SAT 94–98
[2017-03-18] MEDS: CHECK SCOPOLAMINE PATCH PLACEMENT SCH ×3 (00:01→15:43)
[2017-03-18] MEDS: LEValbuterol HFA 15GM INHALER INH SCH (03:00)
[2017-03-18] MEDS: IPRATROPIUM BROMIDE HFA INHALER INH SCH (03:00)
[2017-03-18] MEDS: ALBUT/IPRATROP 3MG/0.5MG NEB 3 ML VIAL INH SCH ×5 (04:07→19:15)
[2017-03-18] MEDS: ROPINIROLE HCL 1 MG TAB NG SCH ×6 (05:17→20:21)
[2017-03-18] MEDS: CARBIDOPA/LEVODOPA 25/100MG TAB NG SCH ×6 (05:18→17:00)
[2017-03-18] MEDS: INSULIN ASPART 100 UNITS/ML 3 ML PEN SC SCH (06:00)
[2017-03-18] MEDS: MULTIVITAMINS W/MINERALS 15ML UDP NG SCH (08:11)
[2017-03-18] MEDS: VANCOMYCIN HCL 250 MG/5 ML SOLN PO SCH ×4 (08:11→20:21)
[2017-03-18] MEDS: METOPROLOL TARTRATE 25 MG TAB PO SCH ×2 (08:12→20:21)
[2017-03-18] MEDS: RASPBERRY SYRUP 5 ML UDP PO SCH ×4 (08:14→20:21)
[2017-03-18] MEDS ORDERED: LEValbuterol HFA 15GM INHALER INH SCH (09:00)
[2017-03-18] MEDS ORDERED: IPRATROPIUM BROMIDE HFA INHALER INH SCH (09:00)
[2017-03-18] MEDS: SODIUM CHLOR 0.45% + 20MEQ KCL 1,000 ML IV SCH (09:52)
[2017-03-18] MEDS ORDERED: NURSING VERBAL MED ORDER ONE (10:00)
--- NOTE | 2017-03-18 11:22 | Progress Note ---
Internal Med Progress Note Date of Service: Mar 18, 2017. Provider Documentation: SUBJECTIVE : Patient is off oxymask and on nasal cannula at 5 L. Breathing fast, but it is near his baseline now. Able to do non verbal conversations but not much verbal Able to comprehend and express himself non verbally OBJECTIVE: Vital Signs-as noted below Exam: General Appearance: Awake, difficult to communicate verbally Head: normocephalic, atraumatic Respiratory: AEBE decreased, Rhonchi +, Crackles + Cardiovascular: Regular rate and rhythm Abdomen: non tender, no masses Genitourinary - Male: other (Oliver present) Lab data as noted below. ASSESSMENT & PLAN: 66 year old M with severe Parkinson's disease who is S/P Shoulder surgery presenting with episodic hypotension and lightheadedness. He never became hypotensive during this admission, but was hypoxic and unable to be weaned off. He underwent a CT PE in light of bedbound status and recent shoulder surgery 8 weeks ago, which was negative for PE with some atelectasis present. The following morning, pulm saw him and an ABG revealed hypercapnia with a CO2 79. BIPAP was started but he couldn't tolerate so he was taken off. A few hours later he became agitated and trying to leave his room, puling off his oxygen, etc. A repeat ABG revealed persistent CO2 of 76 and he was given Ativan and put back on the BIPAP and made NPO. Around 8pm he was taken off BIPAP per resp and after one hour of normal mentation and proving he could swallow pills, the nurse requested food for him and he was allowed to eat. Later that night he was put back on the BIPAP and vomited with aspiration and subsequent intubation. Unable to wean him off the ventilator. Palliative care was consulted--family decided to make him comfort care, no re intubation. ASSESSMENT AND PLAN : HOSPICE CARE Patient remained intubated, unable to wean him off. Discussion by Continuous Washer Operator, Palliative care with family on 03/17/17- tracheostomy vs terminal extubation. Poor prognosis given end stage parkinsons disease, continuous risk of aspiration as parkinsons to the extent that unable to swallow. Family opted for hospice care -Continue with suctioning as needed -Oxygen as needed -Not in pain ACUTE HYPERCAPNIC RESPIRATORY FAILURE : -Secondary to pneumonia, left sided, probably aspiration in setting of chronic end stage parkinsons disease -S/P Intubation - difficult to wean him off with End stage parkinsons disease -- > Decision was made to terminally extubate and not re intubate which patient/ were agreeable to. Palliative care consulted. Family decided to go for hospice care. -S/P Bronchoscopy - secretions + cultures sent x 2. Last one 03/16/17 -S/P IV antibiotics - Vancomycin, Zosyn- discontinued as cultures from bronchoscopy negative -Work up- CXR, cultures- negative. C DIFF COLITIS Developed diarrhea overnight, C diff came back positive -Vancomycin QID started (Day 09/21) ELEVATED TROPONIN Mild elevation, trended down. Likely demand ischemia -TTE- no acute wall motion abnormalities MICROCYTIC ANEMIA- Iron deficient PARKINSONS DISEASE, CHRONIC (END STAGE) With a poor baseline as mentioned below - On Sinemet and Requip at home. DVT PROPHYLAXIS - SQ Lovenox- discontinued with hospice care GI PROPHYLAXIS -Pepcid CODE STATUS: FULL DISPOSITION Hospice care. Discussed with by bedside, would want hospice care at a facility SS involved. OKAY TO DISCHARGE FROM MEDICAL POINT OF VIEW. AWAITING PLACEMENT Vital Signs: Date Time Temp Pulse Resp B/P (MAP) Pulse Ox O2 Delivery O2 Flow Rate FiO2 03/18/17 08:00 98 Diffusion Mask 10.0 03/18/17 07:21 36.8 97 36 178/93 (121) 98 03/18/17 06:54 93 26 95 Diffusion Mask 10.0 03/18/17 04:08 95 28 98 Diffusion Mask 13.0 03/17/17 23:45 Oxymask 12.0 03/17/17 22:50 37.1 93 26 158/90 (112) 97 Oxymask 12.0 03/17/17 16:00 Oxymask 12.0 03/17/17 14:46 96 20 94 Mask 10.0 03/17/17 12:00 30 03/17/17 12:00 96 Mechanical Ventilator 30 03/17/17 12:00 36.9 83 24 141/87 (105) 96 Mechanical Ventilator Lab Results: Results Past 24 Hours Test 03/17/17 18:16 03/18/17 06:04 Range/Units Bedside Glucose 107 124 70-99 mg/dl Microbiology Results 03/18/17 C.difficile Toxin B Gene (PCR) - Final, Complete Positive for C. difficile toxin B gene
[2017-03-18] MEDS ORDERED: ALUMINUM/MAGNESIUM SUSP 30 ML UDC ONE (11:29)
[2017-03-18] MEDS: LORAZEPAM INJ 0.5 MG in SYRINGE 0.75 ML IV PRN ×2 (16:25→20:51)
[2017-03-18] MEDS: MoRPHine SULFATE 2 MG/ML CARP IV PRN ×2 (18:15→22:46)
[2017-03-19 01:00] VITALS: PULSE 96; O2SAT 96
[2017-03-19] MEDS: MoRPHine SULFATE 2 MG/ML CARP IV PRN (03:50)
[2017-03-19] MEDS: CARBIDOPA/LEVODOPA 25/100MG TAB NG SCH ×5 (05:00→16:39)
[2017-03-19] MEDS: ROPINIROLE HCL 1 MG TAB NG SCH ×5 (05:00→21:13)
[2017-03-19] MEDS: ALUMINUM/MAGNESIUM SUSP 30 ML UDC PO PRN ×3 (05:13→23:14)
[2017-03-19] MEDS: LORAZEPAM INJ 0.5 MG in SYRINGE 0.75 ML IV PRN ×3 (05:19→17:16)
[2017-03-19 07:04] VITALS: PULSE 96; O2SAT 93
[2017-03-19] MEDS: ALBUT/IPRATROP 3MG/0.5MG NEB 3 ML VIAL INH SCH (07:04)
[2017-03-19 07:19] VITALS: BP 155/80; PULSE 96; TEMP 37.1; O2SAT 93
[2017-03-19] MEDS: RASPBERRY SYRUP 5 ML UDP PO SCH ×4 (08:14→21:12)
[2017-03-19] MEDS: VANCOMYCIN HCL 250 MG/5 ML SOLN PO SCH ×4 (08:14→21:13)
[2017-03-19] MEDS: MULTIVITAMINS W/MINERALS 15ML UDP NG SCH ×2 (08:15→10:46)
[2017-03-19] MEDS: METOPROLOL TARTRATE 25 MG TAB PO SCH ×3 (08:15→22:08)
[2017-03-19] MEDS: CHECK SCOPOLAMINE PATCH PLACEMENT SCH ×4 (08:16→23:41)
--- NOTE | 2017-03-19 09:50 | Progress Note ---
Internal Med Progress Note Date of Service: Mar 19, 2017. Provider Documentation: SUBJECTIVE : Patient is doing much better. On 3 L oxygen. Fast and shallow breathing + Able to do non verbal conversations but not much verbal Able to comprehend and express himself non verbally OBJECTIVE: Vital Signs-as noted below Exam: General Appearance: Awake, difficult to communicate verbally Head: normocephalic, atraumatic Respiratory: AEBE decreased, Rhonchi +, Crackles + Cardiovascular: Regular rate and rhythm Abdomen: non tender, no masses Genitourinary - Male: other (Oliver present) Lab data as noted below. ASSESSMENT & PLAN: 66 year old M with severe Parkinson's disease who is S/P Shoulder surgery presenting with episodic hypotension and lightheadedness. He never became hypotensive during this admission, but was hypoxic and unable to be weaned off. CT for PE came back negative. Following morning, pulmonary evaluated patient, ABGs were ordered - showed acute respiratory acidosis. BIPAP was started, but could not tolerate it. Later aspirated, went in to acute respiratory distress requiring intubation. Transferred to ICU. Unable to wean him off due to continuous aspiration/End stage parkinsons disease. Family meeting done by Paper Ruler/Palliative care. Family decided to terminally extubate, not re intubate and opted for hospice care. Patient was later transferred to floor with hospice care. ASSESSMENT AND PLAN : HOSPICE CARE Patient was intubated, unable to wean him off. Discussion by Paper Ruler, Palliative care with family on 03/17/17- tracheostomy vs terminal extubation. Poor prognosis given end stage parkinsons disease, continuous risk of aspiration as parkinsons to the extent that unable to swallow. Family opted for hospice care. -Continue with suctioning as needed -Oxygen as needed -IV morphine PRN -IV Ativan PRN ACUTE HYPERCAPNIC RESPIRATORY FAILURE : -Secondary to pneumonia, left sided, probably aspiration in setting of chronic end stage parkinsons disease -S/P Intubation - difficult to wean him off with End stage parkinsons disease -- > Decision was made to terminally extubate and not re intubate which patient/ were agreeable to. Palliative care consulted. Family decided to go for hospice care. -S/P Bronchoscopy - secretions + cultures sent x 2. Last one 03/16/17 -S/P IV antibiotics - Vancomycin, Zosyn- discontinued as cultures from bronchoscopy negative -Work up- CXR, cultures- negative. C DIFF COLITIS Developed diarrhea overnight, C diff came back positive -Vancomycin QID started (Day 10/22) ELEVATED TROPONIN Mild elevation, trended down. Likely demand ischemia -TTE- no acute wall motion abnormalities MICROCYTIC ANEMIA- Iron deficient PARKINSONS DISEASE, CHRONIC (END STAGE) With a poor baseline as mentioned below - On Sinemet and Requip at home. DVT PROPHYLAXIS - SQ Lovenox- discontinued with hospice care GI PROPHYLAXIS -Pepcid CODE STATUS: FULL DISPOSITION Hospice care. Discussed with by bedside, would want hospice care at a facility SS involved OKAY TO DISCHARGE FROM MEDICAL POINT OF VIEW. AWAITING PLACEMENT- Likely [facility] with hospice care on Tuesday Vital Signs: Date Time Temp Pulse Resp B/P (MAP) Pulse Ox O2 Delivery O2 Flow Rate FiO2 03/19/17 07:19 37.1 96 24 155/80 (105) 93 Nasal Cannula 3.0 03/19/17 07:04 96 22 93 Nasal Cannula 2.0 03/19/17 01:00 96 96 Nasal Cannula 3.0 03/19/17 00:35 Nasal Cannula 3.0 03/18/17 19:15 98 24 96 Nasal Cannula 3.0 03/18/17 16:00 Nasal Cannula 2.0 03/18/17 15:23 92 30 94 Nasal Cannula 2.0 03/18/17 13:00 165/84 (111) 03/18/17 11:28 82 26 97 Nasal Cannula 5.0
[2017-03-19 10:40] VITALS: BP 160/78; PULSE 96
[2017-03-19] MEDS ORDERED: ALBUT/IPRATROP 3MG/0.5MG NEB 3 ML VIAL INH PRN (12:00)
[2017-03-19 22:08] VITALS: BP 133/79; PULSE 87
[2017-03-19 23:02] VITALS: BP 136/67; PULSE 66; TEMP 36.7; O2SAT 91
[2017-03-20] MEDS: ONDANSETRON 4MG OD TAB PO PRN ×3 (01:26→14:18)
[2017-03-20] MEDS: ROPINIROLE HCL 1 MG TAB NG SCH ×5 (05:12→22:18)
[2017-03-20] MEDS: CARBIDOPA/LEVODOPA 25/100MG TAB NG SCH ×5 (05:12→16:51)
[2017-03-20] MEDS: MULTIVITAMINS W/MINERALS 15ML UDP NG SCH (08:26)
[2017-03-20] MEDS: METOPROLOL TARTRATE 25 MG TAB PO SCH ×2 (08:27→22:22)
[2017-03-20] MEDS: VANCOMYCIN HCL 250 MG/5 ML SOLN PO SCH ×4 (08:28→22:22)
[2017-03-20] MEDS: RASPBERRY SYRUP 5 ML UDP PO SCH ×4 (08:28→22:22)
[2017-03-20 08:29] VITALS: BP 120/77; PULSE 91
[2017-03-20] MEDS: CHECK SCOPOLAMINE PATCH PLACEMENT SCH ×3 (08:55→23:02)
--- NOTE | 2017-03-20 09:50 | Progress Note ---
Internal Med Progress Note Date of Service: Mar 20, 2017. Provider Documentation: SUBJECTIVE : Patient is doing much better. On 3 L oxygen. Able to do non verbal conversations but not much verbal Able to comprehend and express himself non verbally OBJECTIVE: Vital Signs-as noted below Exam: General Appearance: Awake, difficult to communicate verbally Head: normocephalic, atraumatic Respiratory: AEBE decreased, Rhonchi +, Crackles + Cardiovascular: Regular rate and rhythm Abdomen: non tender, no masses Genitourinary - Male: other (Oliver present) Lab data as noted below. ASSESSMENT & PLAN: 66 year old M with severe Parkinson's disease who is S/P Shoulder surgery presenting with episodic hypotension and lightheadedness. He never became hypotensive during this admission, but was hypoxic and unable to be weaned off. CT for PE came back negative. Following morning, pulmonary evaluated patient, ABGs were ordered - showed acute respiratory acidosis. BIPAP was started, but could not tolerate it. Later aspirated, went in to acute respiratory distress requiring intubation. Transferred to ICU. Unable to wean him off due to continuous aspiration/End stage parkinsons disease. Family meeting done by Inspector Multifocal Lens/Palliative care. Family decided to terminally extubate, not re intubate and opted for hospice care. Patient was later transferred to floor with hospice care. ASSESSMENT AND PLAN : HOSPICE CARE Patient was intubated, unable to wean him off. Discussion by Inspector Multifocal Lens, Palliative care with family on 03/17/17- tracheostomy vs terminal extubation. Poor prognosis given end stage parkinsons disease, continuous risk of aspiration as parkinsons to the extent that unable to swallow. Family opted for hospice care. -Continue with suctioning as needed -Oxygen as needed -IV morphine PRN -IV Ativan PRN ACUTE HYPERCAPNIC RESPIRATORY FAILURE : -Secondary to pneumonia, left sided, probably aspiration in setting of chronic end stage parkinsons disease -S/P Intubation - difficult to wean him off with End stage parkinsons disease -- > Decision was made to terminally extubate and not re intubate which patient/ were agreeable to. Palliative care consulted. Family decided to go for hospice care. -S/P Bronchoscopy - secretions + cultures sent x 2. Last one 03/16/17 -S/P IV antibiotics - Vancomycin, Zosyn- discontinued as cultures from bronchoscopy negative -Work up- CXR, cultures- negative. C DIFF COLITIS Developed diarrhea overnight, C diff came back positive -Vancomycin QID started (Day 10/22) ELEVATED TROPONIN Mild elevation, trended down. Likely demand ischemia -TTE- no acute wall motion abnormalities MICROCYTIC ANEMIA- Iron deficient PARKINSONS DISEASE, CHRONIC (END STAGE) With a poor baseline as mentioned below - On Sinemet and Requip at home. DVT PROPHYLAXIS - SQ Lovenox- discontinued with hospice care GI PROPHYLAXIS -Pepcid CODE STATUS: FULL DISPOSITION Hospice care. Discussed with by bedside. SS involved OKAY TO DISCHARGE FROM MEDICAL POINT OF VIEW. AWAITING PLACEMENT- Likely [facility] with hospice care on Tuesday Vital Signs: Date Time Temp Pulse Resp B/P (MAP) Pulse Ox O2 Delivery O2 Flow Rate FiO2 03/20/17 08:29 91 120/77 (91) 03/20/17 08:00 Nasal Cannula 3.0 03/20/17 00:00 Nasal Cannula 3.0 03/19/17 22:08 87 133/79 (97) 03/19/17 20:00 Nasal Cannula 3.0 03/19/17 16:00 Nasal Cannula 3.0 03/19/17 10:40 96 160/78 (105)
[2017-03-20] MEDS: SCOPOLAMINE 1.5 MG TDSY TD SCH (11:16)
[2017-03-20] MEDS ORDERED: FENTANYL CITRATE INJ 50 MCG/1 ML 2 ML VIAL IV ONE (19:41)
[2017-03-20] MEDS ORDERED: VECURONIUM BROMIDE 10 MG VIAL IV ONE (19:41)
[2017-03-20] MEDS: LORAZEPAM INJ 0.5 MG in SYRINGE 0.75 ML IV PRN (22:22)
[2017-03-20 22:28] VITALS: BP 113/70; PULSE 83; TEMP 37.2; O2SAT 95
[2017-03-21] VITALS: O2SAT 95
[2017-03-21] MEDS ORDERED: hydrOXYzine HCL 25 MG TAB PO STA (02:40)
[2017-03-21] MEDS: ROPINIROLE HCL 1 MG TAB NG SCH ×4 (05:31→16:43)
[2017-03-21] MEDS: CARBIDOPA/LEVODOPA 25/100MG TAB NG SCH ×5 (05:32→16:44)
[2017-03-21] MEDS: LORAZEPAM INJ 0.5 MG in SYRINGE 0.75 ML IV PRN ×3 (06:30→17:49)
[2017-03-21 06:54] VITALS: BP 123/73; PULSE 90; TEMP 37.4; O2SAT 92
[2017-03-21] MEDS: ONDANSETRON 4MG OD TAB PO PRN ×2 (07:39→16:51)
[2017-03-21] MEDS: RASPBERRY SYRUP 5 ML UDP PO SCH ×3 (08:09→16:45)
[2017-03-21] MEDS: VANCOMYCIN HCL 250 MG/5 ML SOLN PO SCH ×3 (08:09→16:45)
[2017-03-21] MEDS: METOPROLOL TARTRATE 25 MG TAB PO SCH (08:10)
[2017-03-21] MEDS: MULTIVITAMINS W/MINERALS 15ML UDP NG SCH (08:11)
[2017-03-21] MEDS: CHECK SCOPOLAMINE PATCH PLACEMENT SCH ×2 (08:18→15:55)
--- NOTE | 2017-03-21 09:19 | Progress Note ---
Internal Med Progress Note Date of Service: Mar 21, 2017. Provider Documentation: SUBJECTIVE : Patient more agitated today. At night had a fall, did not hit head. Able to do non verbal conversations but not much verbal Able to comprehend and express himself non verbally OBJECTIVE: Vital Signs-as noted below Exam: General Appearance: Awake, difficult to communicate verbally Head: normocephalic, atraumatic Respiratory: AEBE decreased, Rhonchi +, Crackles + Cardiovascular: Regular rate and rhythm Abdomen: non tender, no masses Genitourinary - Male: other (Oliver present) Lab data as noted below. ASSESSMENT & PLAN: 66 year old M with severe Parkinson's disease who is S/P Shoulder surgery presenting with episodic hypotension and lightheadedness. He never became hypotensive during this admission, but was hypoxic and unable to be weaned off. CT for PE came back negative. Following morning, pulmonary evaluated patient, ABGs were ordered - showed acute respiratory acidosis. BIPAP was started, but could not tolerate it. Later aspirated, went in to acute respiratory distress requiring intubation. Transferred to ICU. Unable to wean him off due to continuous aspiration/End stage parkinsons disease. Family meeting done by Compounding Technician/Palliative care. Family decided to terminally extubate, not re intubate and opted for hospice care. Patient was later transferred to floor with hospice care. ASSESSMENT AND PLAN : HOSPICE CARE Patient was intubated, unable to wean him off. Discussion by Compounding Technician, Palliative care with family on 03/17/17- tracheostomy vs terminal extubation. Poor prognosis given end stage parkinsons disease, continuous risk of aspiration as parkinsons to the extent that unable to swallow. Family opted for hospice care. -Continue with suctioning as needed -Oxygen as needed -IV morphine PRN -IV Ativan PRN ACUTE HYPERCAPNIC RESPIRATORY FAILURE : -Secondary to pneumonia, left sided, probably aspiration in setting of chronic end stage parkinsons disease -S/P Intubation - difficult to wean him off with End stage parkinsons disease -- > Decision was made to terminally extubate and not re intubate which patient/ were agreeable to. Palliative care consulted. Family decided to go for hospice care. -S/P Bronchoscopy - secretions + cultures sent x 2. Last one 03/16/17 -S/P IV antibiotics - Vancomycin, Zosyn- discontinued as cultures from bronchoscopy negative -Work up- CXR, cultures- negative. C DIFF COLITIS Developed diarrhea overnight, C diff came back positive -Vancomycin QID started (Day 12/20) ELEVATED TROPONIN Mild elevation, trended down. Likely demand ischemia -TTE- no acute wall motion abnormalities MICROCYTIC ANEMIA- Iron deficient PARKINSONS DISEASE, CHRONIC (END STAGE) With a poor baseline as mentioned below - On Sinemet and Requip at home. DVT PROPHYLAXIS - SQ Lovenox- discontinued with hospice care GI PROPHYLAXIS -Pepcid CODE STATUS: FULL DISPOSITION Hospice care. Discussed with by bedside. SS involved OKAY TO DISCHARGE FROM MEDICAL POINT OF VIEW. AWAITING PLACEMENT- Likely [facility] with hospice care on Tuesday Vital Signs: Date Time Temp Pulse Resp B/P (MAP) Pulse Ox O2 Delivery O2 Flow Rate FiO2 03/21/17 06:54 37.4 90 20 123/73 (90) 92 Nasal Cannula 3.0 03/21/17 00:00 95 Nasal Cannula 3.0 30 03/20/17 22:28 37.2 83 20 113/70 (84) 95 3.0 03/20/17 16:00 Nasal Cannula 3.0
[2017-03-21 13:07] VITALS: BP 130/79; PULSE 86; TEMP 37; O2SAT 95
[2017-03-21] MEDS ORDERED: NURSING VERBAL MED ORDER ONE (13:15)
[2017-03-21] MEDS ORDERED: LORA1TAB13 PO (17:28)
[2017-03-21] MEDS ORDERED: MLXC PO (17:28)
[2017-03-21] MEDS ORDERED: OXYC10SO PO (17:28)
[2017-03-21] MEDS ORDERED: VNCS250 PO (17:28)
[2017-03-21] MEDS ORDERED: CLCUDL PO (17:28)
[2017-03-21] MEDS ORDERED: SCOP1DIS14 TD (17:28)
[2017-03-21] MEDS ORDERED: CLON0.5T3 PO (17:28)
--- NOTE | 2017-03-21 17:30 | Discharge Instructions ---
Discharge Instructions Date of Service Mar 21, 2017. Admission Reason for Admission: Hypotension Discharge Discharge Diagnosis / Problem: 1. Acute hypoxic respiratory failure 2 . Pneumonia 3. End stage parkinson Discharge Goals Goal(s): Decrease discomfort Activity Recommendations Activity Limitations: resume your previous activity (bedridden) . Instructions / Follow-Up Instructions / Follow-Up HOSPICE CARE -Needs frequent suctioning for increased secretions -Pleasure feeds as tolerated -Lorazepam/Morphine PRN -Scopolamine patch as directed -Oliver catheter in situ FOLLOW UP 1. Follow up with hospice team Current Hospital Diet Patient's current hospital diet: AHA Diet (Heart Healthy) Discharge Diet Recommended Diet: Regular Diet (pureed consistency as tolerated /pleasure feeds ) Pending Studies Studies pending at discharge: no Laboratory Results Hemoglobin A1c Test 03/15/17 06:45 Range/Units Estimated Average Glucose 140 mg/dl Hemoglobin A1c 6.5 H 4.5-5.6 % Medical Emergencies . Who to Call and When: Medical Emergencies: If at any time you feel your situation is an emergency, please call 911 immediately. . Non-Emergent Contact Non-Emergency issues call your: Specialist (Hospice team) . . "Provider Documentation" section prepared by Martha Carter. . VTE Core Measure Inpt VTE Proph given/why not?: Edison Gomez, SCD's
--- NOTE | 2017-03-21 17:33 | Discharge Summary ---
Discharge Summary Date of Service Mar 21, 2017. Discharge Summary Admission Date: Mar 11, 2017 at 12:37 Discharge Date: Mar 21, 2017 Discharge Disposition: [facility] facility ([facility] WITH HOSPICE CARE) Principal Diagnosis: 1. Acute hypercapneic respiratory failure requiring intubation 2. Pneumonia 3. C diff colitis 4 End stage parkinsons disease 5. Hospice care Secondary Diagnoses/Problems: 1. Iron deficiency anemia 2. Physical deconditioning/Ambulatory dysfunction Procedures: ICU monitoring Intubation - terminal extubation done IV antibiotics Serial CXR CT chest Venous duplex Foleys in situ Consultations: Pulm, ICU Pending Studies/Follow-Up: Instructions / Follow-Up Instructions / Follow-Up HOSPICE CARE -Needs frequent suctioning for increased secretions -Pleasure feeds as tolerated -Lorazepam/Morphine PRN -Scopolamine patch as directed -Oliver catheter in situ FOLLOW UP 1. Follow up with hospice team Medication Reconciliation New Medications: Lorazepam (Lorazepam) 1 Mg Tab 1 TAB PO TID PRN for Anxiety/Agitation for 30 Days, #30 TAB Oxycodone Oral Soln (Roxicodone Oral Soln) 5 Mg/5 Ml Soln 2.5 MG PO Q6 PRN for pain/SOB for 20 Days Aluminum/Magnesium/Simeth (Mag-Al 200-200 mg/5Ml) 30 Ml Susp 30 ML PO Q6H PRN for HEART BURN for 20 Days Docusate Sodium (Diocto) 100 Mg/10 Ml Syrp 100 MG PO BID PRN for Constipation for 20 Days Scopolamine (Transderm-Scop) 1 Mg/3 Days Dis 1.5 MG TD Q72H, #10 PATCH Vancomycin HCl (Vancomycin HCl) 250 Mg/5 Ml Susp 250 MG PO QID for 16 Days Continued Medications: Carbidopa/Levodopa (Sinemet 25MG/100MG) Tab 1.5 TAB PO 5XD, TAB Clonazepam (Klonopin) 0.5 Mg Tab 1 MG PO HS for 30 Days, #20 TAB (This prescription has been renewed) Levodopa/Carbidopa (Sinemet Cr 25MG/100MG) 1 Ea Tabcr 1 TAB PO HS, TAB Metoprolol Tartrate (Lopressor) (Lopressor) 25 Mg Tab 25 MG PO BID for 90 Days, #180 TAB 1 Refill Ropinirole (Requip) 4 Mg Tab 4 MG PO QID Ropinirole Hydrochloride (Requip Xl) 12 Mg Tab 12 MG PO HS Tamsulosin HCl (Tamsulosin HCl) 0.4 Mg Cap 0.4 MG PO HS Discontinued Medications: Cyanocobalamin (Vitamin B-12 1000 Mcg) 1,000 Mcg Tab 1000 MCG PO DAILY, TAB Fish Oil (Fish Oil) 1 Gm Cap 1 GM PO DAILY Lactobacillus Acidophilus (Lactinex) Tab 1 TAB PO BID, TAB Lisinopril (Zestril) 10 Mg Tab 10 MG PO DAILY, TAB Niacin (Niacin) 500 Mg Tab 500 MG PO DAILY, TAB Omeprazole (Prilosec) 20 Mg Capcr 20 MG PO DAILY, CAP Admission Information HPI (per Admitting provider): 66 year old male who presents to the ER with low blood pressure. Patient has advanced Parkinson's disease, some history is obtained from the . She reports that the patient underwent right shoulder surgery about 8 weeks ago. She reports home health nursing has been in place since the surgery. She reports that they monitor his blood pressure during each visit. She reports that the past two days his blood pressure has been running high, around 170 systolically. Today the patient felt lightheaded and dizzy and his systolic blood pressure was in the 70s. No syncopal event. Patient denies chest pain, shortness of breath, nausea, and diaphoresis. Patient was seen at primary care about one week ago for UTI symptoms (dark urine with foul odor). He was placed on Cipro however culture was negative so the antibiotic has been stopped. Urine symptoms have resolved. reports the patient is wheelchair bound. He has not ambulated for the past 6 months due to right shoulder problems. reports that since he has had the surgery he has been working with therapy to start walking again. He is scheduled to have a brace made for his LLE. Patient reports his appetite has been good. He has chronic lower extremity edema which is unchanged. No abdominal pain, vomiting, or diarrhea. He denies fever or chills. In the ER, patient's BP has been improving on its own. Initial BP was 97 /55 and most recently was 148/88. Initial troponin 0.091. No EKG changes. Physical Exam (per Admitting): General Appearance: no apparent distress Head: normocephalic Eyes: normal inspection ENT: hearing grossly normal Neck: supple, no JVD Respiratory/Chest: no respiratory distress, + decreased breath sounds Cardiovascular: regular rate, rhythm, + pertinent finding (+1-2 pitting edema BLLE) Abdomen/GI: normal bowel sounds, non tender, soft Extremities/Musculoskelatal: normal inspection, no calf tenderness Neurologic/Psych: alert, normal mood/affect, oriented x 3, + pertinent finding (flat affect, dysarthria, strong BLUE and BLLE ) Skin: normal color, warm/dry Hospital Course 66 year old M with severe Parkinson's disease who is S/P Shoulder surgery presenting with episodic hypotension and lightheadedness. He never became hypotensive during this admission, but was hypoxic and unable to be weaned off. CT for PE came back negative. Following morning, pulmonary evaluated patient, ABGs were ordered - showed acute respiratory acidosis. BIPAP was started, but could not tolerate it. Later aspirated, went in to acute respiratory distress requiring intubation. Transferred to ICU. Unable to wean him off due to continuous aspiration/End stage parkinsons disease. Family meeting done by Paper Cap Machine Operator/Palliative care. Family decided to terminally extubate, not re intubate and opted for hospice care. Patient was later transferred to floor with hospice care. ASSESSMENT AND PLAN : HOSPICE CARE Patient was intubated, unable to wean him off. Discussion by Paper Cap Machine Operator, Palliative care with family on 03/17/17- tracheostomy vs terminal extubation. Poor prognosis given end stage parkinsons disease, continuous risk of aspiration as parkinsons to the extent that unable to swallow. Family opted for hospice care. -Continue with suctioning as needed -Oxygen as needed -IV morphine PRN -IV Ativan PRN ACUTE HYPERCAPNIC RESPIRATORY FAILURE : -Secondary to pneumonia, left sided, probably aspiration in setting of chronic end stage parkinsons disease -S/P Intubation - difficult to wean him off with End stage parkinsons disease -- > Decision was made to terminally extubate and not re intubate which patient/ were agreeable to. Palliative care consulted. Family decided to go for hospice care. -S/P Bronchoscopy - secretions + cultures sent x 2. Last one 03/16/17 -S/P IV antibiotics - Vancomycin, Zosyn- discontinued as cultures from bronchoscopy negative -Work up- CXR, cultures- negative. C DIFF COLITIS Developed diarrhea overnight, C diff came back positive -Vancomycin QID started (Day 12/20) ELEVATED TROPONIN Mild elevation, trended down. Likely demand ischemia -TTE- no acute wall motion abnormalities MICROCYTIC ANEMIA- Iron deficient PARKINSONS DISEASE, CHRONIC (END STAGE) With a poor baseline as mentioned below - On Sinemet and Requip at home. DVT PROPHYLAXIS - SQ Lovenox- discontinued with hospice care GI PROPHYLAXIS -Pepcid CODE STATUS: FULL DISPOSITION Hospice care. Discussed with by bedside. SS involved OKAY TO DISCHARGE FROM MEDICAL POINT OF VIEW. AWAITING PLACEMENT- Likely [place] with hospice care on Tuesday Total time spent on discharge = 35 MINUTES This includes examination of the patient, discharge planning, medication reconciliation, and communication with other providers. Discharge Instructions Discharge Goals Goal(s): Decrease discomfort Activity Recommendations Activity Limitations: resume your previous activity (bedridden) . Instructions / Follow-Up Instructions / Follow-Up HOSPICE CARE -Needs frequent suctioning for increased secretions -Pleasure feeds as tolerated -Lorazepam/Morphine PRN -Scopolamine patch as directed -Oliver catheter in situ FOLLOW UP 1. Follow up with hospice team Current Hospital Diet Patient's current hospital diet: AHA Diet (Heart Healthy) Discharge Diet Recommended Diet: Regular Diet (pureed consistency as tolerated /pleasure feeds ) Pending Studies Studies pending at discharge: no Laboratory Results Hemoglobin A1c Test 03/15/17 06:45 Range/Units Estimated Average Glucose 140 mg/dl Hemoglobin A1c 6.5 H 4.5-5.6 % Medical Emergencies . Who to Call and When: Medical Emergencies: If at any time you feel your situation is an emergency, please call 911 immediately. . Non-Emergent Contact Non-Emergency issues call your: Specialist (Hospice team) . . "Provider Documentation" section prepared by Martha Carter. . VTE Core Measure Inpt VTE Proph given/why not?: Edison Gomez, SCD's
[2017-03-21 17:36] VITALS: BP 130/79; PULSE 86; TEMP 37; O2SAT 95
[2017-03-21] MEDS ORDERED: OLANZAPINE 10 MG/2.1 ML SDV IM ONE (20:00)
--- NOTE | 2017-04-01 06:15 | EDITING REQUIRED CODING QUERY ---
CODING QUERY To promote full compliance with coding requirements relating to patient care, provider participation is requested in all cases of remote inpatient coder uncertainty. Please assist us with the question(s) below: Left lower lobe, added to note Coding Question: Can you please specify the location of the bronch done on 03/16? You documented "proximal airways", but I need the specific area (trachea, cory, RUL/EUFEMIA bronchus etc_) in order to code it. Thank you for your help! Physician's Response: Thank you! Julienne Vuong Principal Diagnosis: "_that condition established after study, to be chiefly responsible for occasioning the admission of the patient to the hospital for care." Co-Existing Principal Diagnosis: "_when two or more diagnoses equally meet the criteria for principal diagnosis as determined by the circumstances of admission, diagnostic work up, and/or therapy provided, and the Alphabetic Index, Tabular List, or another coding guideline does not provide sequencing direction, any one of the diagnoses may be sequenced first." "When the physician has documented what appears to be a current diagnosis in the body of the record, but has not included the diagnosis in the final diagnostic statement, the physician should be asked whether the diagnosis should be added." (Source Coding [facility] 2 QTR90. p3-4)
== END 2017-03-21 19:50 | disposition hospice, inpatient (51) | DRG 166 ==
LOC: C.EDA 09:46 → C.2T 12:37 → ENRESERV 13:06 → C.MSICU 03-14 05:12 → ENRESERV 03-17 15:31 → C.MS2W 03-17 16:01
PROVIDERS: ADMIT Hospitalist; ATTEND Internal Medicine
PROC: 0BH17EZ Insertion of Endotracheal Airway into Trachea, Via Natural or Artificial Opening (ICD-10-PCS; principal; 2017-03-14)
PROC: 5A1945Z Respiratory Ventilation, 24-96 Consecutive Hours (ICD-10-PCS; 2017-03-14)
PROC: 0B9J8ZZ Drainage of Left Lower Lung Lobe, Via Natural or Artificial Opening Endoscopic (ICD-10-PCS; 2017-03-14)
PROC: 0B9J8ZX Drainage of Left Lower Lung Lobe, Via Natural or Artificial Opening Endoscopic, Diagnostic (ICD-10-PCS; 2017-03-14)
PROC: 0BCB8ZZ Extirpation of Matter from Left Lower Lobe Bronchus, Via Natural or Artificial Opening Endoscopic (ICD-10-PCS; 2017-03-16)
DX: J69.0 Pneumonitis due to inhalation of food and vomit (principal); J96.01 Acute respiratory failure with hypoxia; J96.02 Acute respiratory failure with hypercapnia; A04.7 Enterocolitis due to Clostridium difficile; I95.9 Hypotension, unspecified; E78.5 Hyperlipidemia, unspecified; K21.9 Gastro-esophageal reflux disease without esophagitis; I10 Essential (primary) hypertension; G20 Parkinson's disease; N40.0 Benign prostatic hyperplasia without lower urinary tract symptoms; D50.9 Iron deficiency anemia, unspecified; Z51.5 Encounter for palliative care; Z66 Do not resuscitate; Z79.899 Other long term (current) drug therapy

== ENCOUNTER 2017-07-05 10:40 | Inpatient (IN) | payer OTHER ==
[2017-07-05] VITALS (9 sets, daily range): BP systolic 104–125; BP diastolic 66–79; PULSE 80–98; TEMP 36.5–37; O2SAT 91–100; Ht 172.7 cm; Wt 95.0 kg
[~2017-07-05] VITALS: Ht 172.7 cm; Wt 95.0 kg
[~2017-07-05 10:40] MED LIST changes: +CARB25TA12 PO; -CIPR-255 PO; +CLCUDL PO; -CYAN10004 PO; -LCTX PO; -LISI-461 PO; -METR0.7527 EXT; +MLXC PO; -NIAC500T8 PO; -OMG3 PO; +OXYC10SO PO; -PRLSR20 PO; +ROPI12TA PO; -ROPI1TAB72 PO; +SCOP1.5D2 TD; -SNM/25100 PO; +VNCS250 PO
--- NOTE | 2017-07-05 11:16 | DIAGNOSTIC IMAGING REPORT ---
CHEST ONE VIEW PORTABLE CLINICAL HISTORY: Sepsis COMPARISON STUDY: 03/17/2017 FINDINGS: The cardiac and mediastinal contours remain stable. There is a left-sided generator with electrodes extending to the head likely representing a neurostimulator. Mild pulmonary venous hypertension is suspected. There is a small right pleural effusion. Basilar opacities are likely atelectatic[ IMPRESSION: 1. Bony venous hypertension 2. Small right pleural effusion 3. Bibasilar opacities likely atelectatic Electronically signed by: Sam Jordan M.D. 07/05/2017 11:14 AM Dictated Date/Time: 07/05/2017 11:13 AM
--- NOTE | 2017-07-05 11:25 | EMERGENCY ROOM VISIT NOTE ---
History Report prepared by Oma: Arline Minor Under the Supervision of: Dr. Alex Kulkarni D.O. First contact with patient: 10:53 Chief Complaint: SHORTNESS OF BREATH Stated Complaint: BREATHING DIFFICULTY History of Present Illness The patient is a 67 year old male who presents to the Emergency Room with complaints of persistent breathing difficulties that began several days ago. Per the patient's , the patient has been sick with a cold since Tuesday. The patient's states that the patient's oxygen saturation has dropped as low as 44% and dropped to 66% on Tuesday night. She states that the patient's breathing exercises have helped his symptoms. The patient's states that the patient was placed on nasal cannula oxygen at home and on steroids and antibiotics on Tuesday. She states that the patient slept through the night last evening and states that she could not wake the patient this morning. The patient states that a similar event occurred in the past, noting that the patient retained CO2. She states that the patient was placed on a ventilator and c-pap, but notes that he would not want that in the future. The patient's states that the patient has a history of Parkinson's disease. She notes swelling to the patient's bilateral lower extremities, but additionally notes that he has chronic lymphedema. Source of History: spouse/significant other () Onset: several days ago Position: other (global) Quality: other (breathing difficulties) Timing: other (persistent) Modifying Factors (Relieving): other (nasal cannula oxygen) Note: Associated Symptoms: bilateral lower extremity swelling Review of Systems See HPI for pertinent positives & negatives. A total of 10 systems reviewed and were otherwise negative. Past Medical & Surgical Medical Problems: (1) BPH (benign prostatic hypertrophy) (2) Dyslipidemia (3) GERD (gastroesophageal reflux disease) (4) History of kidney stones (5) HTN (hypertension) (6) Hypercapnic respiratory failure (7) Iron deficiency anemia (8) Overactive bladder (9) Parkinson disease (10) Venous insufficiency Surgical Problems: (1) H/O inguinal hernia repair (2) H/O shoulder surgery (3) S/P deep brain stimulator placement (4) S/p tonsil surgery Family History Diabetes mellitus MOTHER FH: asthma FATHER FH: prostate cancer FATHER Hypertension FATHER SISTER Kidney disease Kidney stones Social History Smoking Status: Former Smoker Alcohol Use: none Marital Status: Housing Status: lives with family Current/Historical Medications Scheduled Amoxicillin & Pot Clavulanate (Augmentin 875-125 mg), 1 TAB PO BID Carbidopa/Levodopa (Sinemet 25MG/100MG), 1.5 TAB PO 5XD Carbidopa/Levodopa (Sinemet Cr 25MG/100MG), 1 TAB PO HS Clonazepam (Klonopin), 1 MG PO HS Cyanocobalamin (Vitamin B-12), 1,500 MCG PO DAILY Ferrous Sulfate (Kp Ferrous Sulfate), 325 MG PO BID Fish Oil ([place]-3), 1,000 MG PO DAILY Lisinopril (Prinivil), 10 MG PO DAILY Metoprolol Tartrate (Lopressor) (Lopressor), 25 MG PO BID Niacin (Niacin), 500 MG PO DAILY Omeprazole (Prilosec), 20 MG PO DAILY Prednisone (Prednisone), 1 TAB PO UD Ropinirole (Requip), 4 MG PO QID Ropinirole Hydrochloride (Ropinirole Er), 1 TAB PO HS Scopolamine (Transderm-Scop), 1.5 MG TD Q72H Tamsulosin HCl (Tamsulosin HCl), 0.4 MG PO HS Allergies Coded Allergies: Sulindac (Verified Adverse Reaction, Intermediate, STOMACH IRRATION, 07/05) Physical Exam Vital Signs Date Time Temp Pulse Resp B/P (MAP) Pulse Ox O2 Delivery O2 Flow Rate FiO2 07/05/17 13:48 80 94 60 07/05/17 13:47 69 24 130/70 95 Nasal Cannula 2.0 07/05/17 12:14 64 24 116/73 96 Nasal Cannula 2.0 07/05/17 11:00 95 Nasal Cannula 2.0 07/05/17 10:53 37.1 57 25 105/73 95 Nasal Cannula 07/05/17 10:53 95 Nasal Cannula 07/05/17 10:49 66 Physical Exam GENERAL: Patient is listless and slow to answer questions, responds to loud verbal stimuli. EYES: The conjunctivae are clear. The pupils are round and reactive. EARS, NOSE, MOUTH AND THROAT: The nose is without any evidence of any deformity. Mucous membranes are moist tongue is midline NECK: The neck is nontender and supple. RESPIRATORY: Breath sounds are diminished throuhgout with rales in all lung chacon, shallow respirations noted, ineffective respirations noted. CARDIOVASCULAR: Regular rate and rhythm noted there no murmurs rubs or gallops normal S1 normal S2 GASTROINTESTINAL: The abdomen is soft. Bowel sounds are present in all quadrants. Abdomen is nontender MUSCULOSKELETAL/EXTREMITIES: There is no evidence of gross deformity full range of motion is noted in the hips and shoulders SKIN: Pedal edema noted bilaterally, no signs of cellulitis noted. NEUROLOGIC: Patient answers questions and follows commands appropriately, slow to answer questions, apperas to be at baseline otherwise according to significant other. Medical Decision & Procedures ER Provider Diagnostic Interpretation: Radiology results as stated below per my review and radiologist interpretation: CHEST ONE VIEW PORTABLE CLINICAL HISTORY: Sepsis COMPARISON STUDY: 03/17/2017 FINDINGS: The cardiac and mediastinal contours remain stable. There is a left-sided generator with electrodes extending to the head likely representing a neurostimulator. Mild pulmonary venous hypertension is suspected. There is a small right pleural effusion. Basilar opacities are likely atelectatic[ IMPRESSION: 1. Bony venous hypertension 2. Small right pleural effusion 3. Bibasilar opacities likely atelectatic Electronically signed by: Sam Jordan M.D. 07/05/2017 11:14 AM Dictated Date/Time: 07/05/2017 11:[address] HEAD WITHOUT CONTRAST (CT) CLINICAL HISTORY: Altered mental status COMPARISON STUDY: No previous studies for comparison. TECHNIQUE: Axial CT of the brain is performed from the vertex to the skull base. IV contrast was not administered for this examination. A dose lowering technique was utilized adhering to the principles of ALARA. CT DOSE: 847.48 mGycm FINDINGS: No intra or extra-axial mass lesions are visualized. There is no CT evidence of acute cortical infarction. There is no evidence of midline shift. There is no acute hemorrhage. No calvarial fractures are visualized. There are bilateral deep brain stimulators. There is mild encephalomalacia surrounding the left stimulator lead. There is no evidence of pathologic ventricular dilatation. There is pansinus mucosal thickening. IMPRESSION: 1. No acute intracranial findings 2. Bilateral deep brain stimulators with encephalomalacia surrounding the left stimulator lead 3. Pansinus disease Electronically signed by: Sam Jordan M.D. 07/05/2017 12:15 PM Dictated Date/Time: 07/05/2017 12:13 PM Laboratory Results 07/05/17 11:33 Red Blood Count 4.87, Mean Corpuscular Volume 91.8, Mean Corpuscular Hemoglobin 27.9, Mean Corpuscular Hemoglobin Concent 30.4, Mean Platelet Volume 9.4, Neutrophils (%) (Auto) 89.9, Lymphocytes (%) (Auto) 3.2, Monocytes (%) (Auto) 6.4, Eosinophils (%) (Auto) 0.1, Basophils (%) (Auto) 0.1, Neutrophils # (Auto) 9.20, Lymphocytes # (Auto) 0.33, Monocytes # (Auto) 0.66, Eosinophils # (Auto) 0.01, Basophils # (Auto) 0.01 07/05/17 11:33 Test 07/05/17 11:33 07/05/17 11:50 White Blood Count 10.24 K/uL (4.8-10.8) Red Blood Count 4.87 M/uL (4.7-6.1) Hemoglobin 13.6 g/dL (14.0-18.0) Hematocrit 44.7 % (42-52) Mean Corpuscular Volume 91.8 fL (80-100) Mean Corpuscular Hemoglobin 27.9 pg (25-34) Mean Corpuscular Hemoglobin Concent 30.4 g/dl (32-36) Platelet Count 238 K/uL (130-400) Mean Platelet Volume 9.4 fL (7.4-10.4) Neutrophils (%) (Auto) 89.9 % Lymphocytes (%) (Auto) 3.2 % Monocytes (%) (Auto) 6.4 % Eosinophils (%) (Auto) 0.1 % Basophils (%) (Auto) 0.1 % Neutrophils # (Auto) 9.20 K/uL (1.4-6.5) Lymphocytes # (Auto) 0.33 K/uL (1.2-3.4) Monocytes # (Auto) 0.66 K/uL (0.11-0.59) Eosinophils # (Auto) 0.01 K/uL (0-0.5) Basophils # (Auto) 0.01 K/uL (0-0.2) RDW Standard Deviation 62.9 fL (36.4-46.3) RDW Coefficient of Variation 18.5 % (11.5-14.5) Immature Granulocyte % (Auto) 0.3 % Immature Granulocyte # (Auto) 0.03 K/uL (0.00-0.02) Erythrocyte Sedimentation Rate 15 mm/hr (0-14) Prothrombin Time 11.9 SECONDS (9.0-12.0) Prothromb Time International Ratio 1.1 (0.9-1.1) Activated Partial Thromboplast Time 28.2 SECONDS (21.0-31.0) Partial Thromboplastin Ratio 1.1 Venous Blood pH 7.22 (7.36-7.41) Venous Blood Partial Pressure CO2 100 mmHg (38.0-50.0) Venous Blood Partial Pressure O2 34 mmHg Venous Blood HCO3 40 mmol/L Venous Blood Oxygen Saturation 60.3 % Venous Blood Base Excess 7.8 mEq/L Anion Gap 1.0 mmol/L (3-11) Est Creatinine Clear Calc Drug Dose 96.6 ml/min Estimated GFR () 106.5 Estimated GFR (Non- 91.9 BUN/Creatinine Ratio 14.7 (10-20) Calcium Level 8.0 mg/dl (8.5-10.1) Phosphorus Level 3.9 mg/dl (2.5-4.9) Magnesium Level 2.2 mg/dl (1.8-2.4) Total Bilirubin 0.3 mg/dl (0.2-1) Aspartate Amino Transf (AST/SGOT) 13 U/L (15-37) Alanine Aminotransferase (ALT/SGPT) < 6 U/L (12-78) Alkaline Phosphatase 76 U/L (45-117) Total Creatine Kinase 47 U/L (39-308) Creatine Kinase MB 2.4 ng/ml (0.5-3.6) Creatine Kinase MB Ratio 5.1 (0-3.0) Troponin I 0.087 ng/ml (0-0.045) C-Reactive Protein 0.67 mg/dl (0-0.29) Pro-B-Type Natriuretic Peptide 1762 pg/ml (0-900) Total Protein 6.7 gm/dl (6.4-8.2) Albumin 3.0 gm/dl (3.4-5.0) Globulin 3.7 gm/dl (2.5-4.0) Albumin/Globulin Ratio 0.8 (0.9-2) Lipase 91 U/L (73-393) Bedside Lactic Acid Venous 0.86 mmol/L (0.90-1.70) Laboratory results per my review. Medications Administered Medications (Trade) Dose Ordered Sig/Luz Route Start Time Stop Time Status Last Admin Dose Admin Lorazepam (Ativan Inj) 0.5 mg NOW ONCE IV 07/05/17 13:30 07/05/17 13:44 DC 07/05/17 13:53 0.5 MG Ondansetron HCl (Zofran Inj) 4 mg NOW STAT IV 07/05/17 13:34 07/05/17 13:35 DC 07/05/17 13:43 4 MG ECG Indication: SOB/dyspnea Rate (beats per minute): 61 Rhythm: normal sinus Findings: T-wave inversion (diffuse), no acute ischemic change, no ectopy Comparison ECG Date: 03/17/17 Change: no significant change ED Course 1059: The patient was evaluated in room C8. A complete history and physical examination were performed. 1243: I reevaluated the patient and he is resting. I discussed the exam findings with the patients and I discussed the treatment plan. She verbalized complete understanding and agreement. The patient will be evaluated for further treatment. 1304: I discussed the patient's case with Kat Enamorado. She is going to evaluate the patient for further treatment. Medical Decision Differential diagnosis: Etiologies such as infections, reactive airway disease, pneumonia, pneumothorax , COPD, CHF, cardiac ischemia, pulmonary embolism, musculoskeletal, gastrointestinal, as well as others were entertained. Nursing notes reviewed. The patient is a 67-year-old male who presented to the emergency department for altered mental status. The patient has a history of obstructive sleep apnea. The patient was found have a very elevated carbon dioxide level on venous blood gas. I do feel this explains the patient's symptoms. I discussed the patient's laboratory radiographic studies with the significant other. They do not wish to have any intubation or a C-peptide at this time because the patient developed aspiration the last time. I discussed the case with the on-call [facility] is. They have agreed to evaluate the patient in the emergency apartment for further management and disposition. Medication Reconcilliation Current Medication List: was personally reviewed by me Consults Time Called: 1240 Consulting Physician: Kta Enamorado Returned Call: [phone] I discussed the patient's case with Kat Enamorado. She is going to evaluate the patient for further treatment. Impression Primary Impression: Altered mental status Additional Impressions: Respiratory acidosis Obstructive sleep apnea Scribe Attestation The scribe's documentation has been prepared under my direction and personally reviewed by me in its entirety. I confirm that the note above accurately reflects all work, treatment, procedures, and medical decision making performed by me. Departure Information Dispostion Being Evaluated By Hospitalist Referrals Miguel Angel Curran D.O. (PCP) Problem Qualifiers
[2017-07-05 11:45] LABS: VEN BLD GAS O2 SATURATION 60.3 %; VEN BLOOD GAS BASE EXCESS 7.8 mEq/L
[2017-07-05] MEDS ORDERED: FERR1TAB13 PO (11:47)
[2017-07-05] MEDS ORDERED: PRLSR20 PO (11:47)
[2017-07-05] MEDS ORDERED: OMEG10007 PO (11:47)
[2017-07-05] MEDS ORDERED: CYAN1TAB18 PO (11:47)
[2017-07-05] MEDS ORDERED: NIAC500T11 PO (11:47)
[2017-07-05] MEDS ORDERED: CARB25TA16 PO (11:47)
[2017-07-05] MEDS ORDERED: LISI10TA PO (11:47)
[2017-07-05 11:59] LABS: BASO % 0.1 %; BASO ABS # 0.01 K/uL (0-0.2); COMPLETE YES; EOS % 0.1 %; HEMATOCRIT 44.7 % (42-52); IG% 0.3 %; LYMPH % 3.2 %; LYMPH ABS # 0.33 K/uL (1.2-3.4); MEAN CELL VOLUME 91.8 fL (80-100); MEAN CORPUSCULAR HEMOGLOBIN 27.9 pg (25-34); MEAN CORPUSCULAR HGB CONC 30.4 g/dl (32-36); MEAN PLATELET VOLUME 9.4 fL (7.4-10.4); MONO % 6.4 %; NEUT % 89.9 %; PLATELET COUNT 238 K/uL (130-400); RED BLOOD COUNT 4.87 M/uL (4.7-6.1); WHITE BLOOD COUNT 10.24 K/uL (4.8-10.8)
[2017-07-05 12:08] LABS: INR 1.1 (0.9-1.1); PARTIAL THROMBOPLASTIN RATIO 1.1; PROTHROMBIN TIME (PATIENT) 11.9 SECONDS (9.0-12.0)
--- NOTE | 2017-07-05 12:16 | DIAGNOSTIC IMAGING REPORT ---
CT HEAD WITHOUT CONTRAST (CT) CLINICAL HISTORY: Altered mental status COMPARISON STUDY: No previous studies for comparison. TECHNIQUE: Axial CT of the brain is performed from the vertex to the skull base. IV contrast was not administered for this examination. A dose lowering technique was utilized adhering to the principles of ALARA. CT DOSE: 847.48 mGycm FINDINGS: No intra or extra-axial mass lesions are visualized. There is no CT evidence of acute cortical infarction. There is no evidence of midline shift. There is no acute hemorrhage. No calvarial fractures are visualized. There are bilateral deep brain stimulators. There is mild encephalomalacia surrounding the left stimulator lead. There is no evidence of pathologic ventricular dilatation. There is pansinus mucosal thickening. IMPRESSION: 1. No acute intracranial findings 2. Bilateral deep brain stimulators with encephalomalacia surrounding the left stimulator lead 3. Pansinus disease Electronically signed by: Sam Jordan M.D. 07/05/2017 12:15 PM Dictated Date/Time: 07/05/2017 12:13 PM
[2017-07-05 12:20] LABS: ALT/SGPT < 6 U/L (12-78); BLOOD UREA NITROGEN 12 mg/dl (7-18); BUN/CREATININE RATIO 14.7 (10-20); C-REACTIVE PROTEIN 0.67 mg/dl (0-0.29); CARBON DIOXIDE 38 mmol/L (21-32); CHLORIDE 94 mmol/L (98-107); CREATININE 0.84 mg/dl (0.60-1.40); GLUCOSE 104 mg/dl (70-99); MAGNESIUM 2.2 mg/dl (1.8-2.4); POTASSIUM 5.2 mmol/L (3.5-5.1); SODIUM 133 mmol/L (136-145)
[2017-07-05 12:38] LABS: ALB/GLOB RATIO 0.8 (0.9-2); ALKALINE PHOSPHATASE 76 U/L (45-117); AST/SGOT 13 U/L (15-37); CKMB/CK RATIO 5.1 (0-3.0); PHOSPHORUS 3.9 mg/dl (2.5-4.9)
[2017-07-05] MEDS ORDERED: LORAZEPAM 2 MG/ML 1 ML VIAL IV ONE (13:30)
[2017-07-05] MEDS ORDERED: ONDANSETRON INJ 2 MG/ML 2 ML VIAL IV STA (13:34)
[2017-07-05] MEDS ORDERED: CYAN10005 PO (13:44)
[2017-07-05] MEDS ORDERED: PRD20 PO (13:44)
[2017-07-05] MEDS ORDERED: AMOX875T PO (13:44)
[2017-07-05] MEDS ORDERED: ROPI1TAB PO (13:44)
--- NOTE | 2017-07-05 14:08 | History and Physical ---
History & Physical Date & Time of Service: Jul 05, 2017 at 14:07 Chief Complaint: Breathing Difficulty Primary Care Physician: Miguel Angel Curran D.OIrasema History of Present Illness Source: spouse, clinic records, hospital records This is a 67yo M with a PMH of advanced Parkinson's disease (s/p brain stimulator), HTN, who presents with respiratory distress beginning a few days ago. Per , patient has been sick with a URI since Jun 23 with symptoms of cough, chills, nasal congestion. Was started on azithromycin. This past Tuesday, patient started to have difficulty breathing at home and O2 saturation was in 66 %, per . Borrowed oxygen over the weekend. Saw PCP again yesterday and was started on home oxygen, oral prednisone and switched to Augmentin for aspiration PNA coverage. PCP note documents hypoxia to 86% in office. Prompted to go to ER, but patient refused. When went to wake patient this morning, he seemed lethargic, so she brought him in to ER for further evaluation. Patient drowsy and essentially non-verbal during interview, so HPI is limited. Did speak occasionally but is dysarthric. Was arousable to loud stimuli and cooperative with commands. Per , patient was experiencing nasal congestion, chills, cough, malaise starting a few weeks ago. Dyspnea,SOB and wheezing began on Tuesday. Denies any CP, palpitations, nausea/vomiting. Of note, patient was admitted in February of this year for hypoxic respiratory failure possible due to aspiration PNA 2/2 Parkinson's. While on Bipap, patient had an episode of emesis that further complicated respiratory status, requiring intubation and ventilator placement. Noted after that visit that he did not want to be on a vent again, per . Past Medical/Surgical History Medical Problems: (1) BPH (benign prostatic hypertrophy) Status: Chronic (2) Dyslipidemia Status: Chronic (3) GERD (gastroesophageal reflux disease) Status: Chronic (4) History of kidney stones Status: Chronic (5) HTN (hypertension) Status: Chronic (6) Iron deficiency anemia Status: Chronic (7) Overactive bladder Status: Chronic (8) Parkinson disease Status: Chronic (9) Venous insufficiency Status: Chronic Surgical Problems: (1) H/O inguinal hernia repair Status: Chronic (2) H/O shoulder surgery Status: Chronic (3) S/P deep brain stimulator placement Status: Chronic (4) S/p tonsil surgery Status: Chronic Family History Diabetes mellitus MOTHER FH: asthma FATHER FH: prostate cancer FATHER Hypertension FATHER SISTER Kidney disease Kidney stones Social History Smoking Status: Former Smoker Marital Status: Housing status: lives with significant other Immunizations History of Influenza Vaccine: Yes Influenza Vaccine Date: Jul 27, 2016 History of Tetanus Vaccine?: Yes Tetanus Immunization Date: Jul 27, 2016 History of Pneumococcal: Yes Pneumococcal Date: Dec 15, 2012 Multi-Drug Resistant Organisms History of MDRO: Yes Type of MDRO: MRSA Allergies Coded Allergies: Sulindac (Verified Adverse Reaction, Intermediate, STOMACH IRRATION, 07/05) Home Medications Scheduled Amoxicillin & Pot Clavulanate (Augmentin 875-125 mg), 1 TAB PO BID Carbidopa/Levodopa (Sinemet 25MG/100MG), 1.5 TAB PO 5XD Carbidopa/Levodopa (Sinemet Cr 25MG/100MG), 1 TAB PO HS Clonazepam (Klonopin), 1 MG PO HS Cyanocobalamin (Vitamin B-12), 1,500 MCG PO DAILY Ferrous Sulfate (Kp Ferrous Sulfate), 325 MG PO BID Fish Oil (Fiatt-3), 1,000 MG PO DAILY Lisinopril (Prinivil), 10 MG PO DAILY Metoprolol Tartrate (Lopressor) (Lopressor), 25 MG PO BID Niacin (Niacin), 500 MG PO DAILY Omeprazole (Prilosec), 20 MG PO DAILY Prednisone (Prednisone), 1 TAB PO UD Ropinirole (Requip), 4 MG PO QID Ropinirole Hydrochloride (Ropinirole Er), 1 TAB PO HS Scopolamine (Transderm-Scop), 1.5 MG TD Q72H Tamsulosin HCl (Tamsulosin HCl), 0.4 MG PO HS Physical Exam Vital Signs Date Time Temp Pulse Resp B/P (MAP) Pulse Ox O2 Delivery O2 Flow Rate FiO2 07/05/17 13:48 80 94 60 07/05/17 13:47 69 24 130/70 95 Nasal Cannula 2.0 07/05/17 12:14 64 24 116/73 96 Nasal Cannula 2.0 07/05/17 11:00 95 Nasal Cannula 2.0 07/05/17 10:53 37.1 57 25 105/73 95 Nasal Cannula 07/05/17 10:53 95 Nasal Cannula 10/24/17 10:49 66 General Appearance: + moderate distress, + pertinent finding (Kyphotic, lethargic, in respiratory distress but still arousable to loud auditory stimuli ) Head: normocephalic, atraumatic Eyes: normal inspection, PERRL, EOMI, sclerae normal (conjunctiva normal ) ENT: normal ENT inspection, hearing grossly normal, pharynx normal, + nasal congestion Neck: supple, no adenopathy, trachea midline Respiratory/Chest: chest non-tender, + decreased breath sounds (R>L), + accessory muscle use, + wheezing (Expiratory wheezing appreciated in upper left lung field ) Cardiovascular: regular rate, rhythm, no murmur, normal peripheral pulses Abdomen/GI: normal bowel sounds, non tender, soft, no organomegaly Back: normal inspection Extremities/Musculoskelatal: no calf tenderness, + pertinent finding (1-2+ edema in bilateral LE to knee (chronic) ) Neurologic/Psych: no motor/sensory deficits (Unable to assess motor function 2/ 2 altered status. Able to ambulate with walker at baseline, per ), normal mood/affect (Flattened affect ), + pertinent finding (Lethargic, dysarthric. ) Skin: normal color, warm/dry, no rash Diagnostics Laboratory Results Results Past 24 Hours Test 07/05/17 11:33 07/05/17 11:50 Range/Units White Blood Count 10.24 4.8-10.8 K/uL Red Blood Count 4.87 4.7-6.1 M/uL Hemoglobin 13.6 14.0-18.0 g/dL Hematocrit 44.7 42-52 % Mean Corpuscular Volume 91.8 80-100 fL Mean Corpuscular Hemoglobin 27.9 25-34 pg Mean Corpuscular Hemoglobin Concent 30.4 32-36 g/dl Platelet Count 238 130-400 K/uL Mean Platelet Volume 9.4 7.4-10.4 fL Neutrophils (%) (Auto) 89.9 % Lymphocytes (%) (Auto) 3.2 % Monocytes (%) (Auto) 6.4 % Eosinophils (%) (Auto) 0.1 % Basophils (%) (Auto) 0.1 % Neutrophils # (Auto) 9.20 1.4-6.5 K/uL Lymphocytes # (Auto) 0.33 1.2-3.4 K/uL Monocytes # (Auto) 0.66 0.11-0.59 K/uL Eosinophils # (Auto) 0.01 0-0.5 K/uL Basophils # (Auto) 0.01 0-0.2 K/uL RDW Standard Deviation 62.9 36.4-46.3 fL RDW Coefficient of Variation 18.5 11.5-14.5 % Immature Granulocyte % (Auto) 0.3 % Immature Granulocyte # (Auto) 0.03 0.00-0.02 K/uL Erythrocyte Sedimentation Rate 15 0-14 mm/hr Prothrombin Time 11.9 9.0-12.0 SECONDS Prothromb Time International Ratio 1.1 0.9-1.1 Activated Partial Thromboplast Time 28.2 21.0-31.0 SECONDS Partial Thromboplastin Ratio 1.1 Venous Blood pH 7.22 7.36-7.41 Venous Blood Partial Pressure CO2 100 38.0-50.0 mmHg Venous Blood Partial Pressure O2 34 mmHg Venous Blood HCO3 40 mmol/L Venous Blood Oxygen Saturation 60.3 % Venous Blood Base Excess 7.8 mEq/L Sodium Level 133 136-145 mmol/L Potassium Level 5.2 3.5-5.1 mmol/L Chloride Level 94 98-107 mmol/L Carbon Dioxide Level 38 21-32 mmol/L Anion Gap 1.0 3-11 mmol/L Blood Urea Nitrogen 12 7-18 mg/dl Creatinine 0.84 0.60-1.40 mg/dl Est Creatinine Clear Calc Drug Dose 96.6 ml/min Estimated GFR () 106.5 Estimated GFR (Non- 91.9 BUN/Creatinine Ratio 14.7 10-20 Random Glucose 104 70-99 mg/dl Calcium Level 8.0 8.5-10.1 mg/dl Phosphorus Level 3.9 2.5-4.9 mg/dl Magnesium Level 2.2 1.8-2.4 mg/dl Total Bilirubin 0.3 0.2-1 mg/dl Aspartate Amino Transf (AST/SGOT) 13 15-37 U/L Alanine Aminotransferase (ALT/SGPT) < 6 12-78 U/L Alkaline Phosphatase 76 45-117 U/L Total Creatine Kinase 47 39-308 U/L Creatine Kinase MB 2.4 0.5-3.6 ng/ml Creatine Kinase MB Ratio 5.1 0-3.0 Troponin I 0.087 0-0.045 ng/ml C-Reactive Protein 0.67 0-0.29 mg/dl Pro-B-Type Natriuretic Peptide 1762 0-900 pg/ml Total Protein 6.7 6.4-8.2 gm/dl Albumin 3.0 3.4-5.0 gm/dl Globulin 3.7 2.5-4.0 gm/dl Albumin/Globulin Ratio 0.8 0.9-2 Lipase 91 73-393 U/L Bedside Lactic Acid Venous 0.86 0.90-1.70 mmol/L Microbiology Results 07/05/17 Blood Culture, Received Pending 07/05/17 Blood Culture, Received Pending Diagnostic Radiology Head CT: IMPRESSION: 1. No acute intracranial findings 2. Bilateral deep brain stimulators with encephalomalacia surrounding the left stimulator lead 3. Pansinus disease CXR: IMPRESSION: 1. Bony venous hypertension 2. Small right pleural effusion 3. Bibasilar opacities likely atelectatic EKG Normal sinus rhythm T wave abnormality, consider anterolateral ischemia No change from prior EKG Impression Assessment and Plan This is a 67yo M with a PMH of advanced Parkinson's disease (s/p brain stimulator), HTN, who presents with respiratory distress beginning a few days ago. Acute hypercapnic respiratory failure: -VBG pH of 7.2, pco2 of 100 -Likely 2/2 aspiration PNA in the setting of adv PD. -Also a likely component of obesity hypoventilation syndrome -Per pulm note from previous admission, likely has an underlying chronic lung pathology but unable to tolerate PFTs -Unasyn initiated for coverage of aspiration PNA, bilateral sinusitis -CXR with presence of bibasilar opacities, likely atelectasis -Pulm consulted. Appreciate recs -Initiated BiPap -Strict NPO, scheduled anti-emetics -ABG in Q4H Hypercapnic encephalopathy: -Lethargic -Head CT with no acute intracranial findings -On Bipap, ABG Q4H -Neuro checks Advanced Parkinson's Disease: end stage -S/p brain stimulator -Hold Sinemet and Requip until Bipap removed Elevated troponin: -H/o elevated troponin on previous admissions -Denies any CP -EKG with T wave inversion suggestive of anteriolateral ischemia -No significant change since previous EKG findings in February -Trend troponin -Consider echo Microcytic anemia: -Iron deficiency -Supplements currently held financial services manager/dispo: -Palliative care consult placed in the setting of end stage PD -Patient with recurrent bouts of aspiration PNA 2/2 PD -Has verbalized to that he does not want mechanical ventilation -Would appreciate input in reassessing code status -PT/OT evals -financial services manager for dispo DVT Ppx: Lovenox Code status: FULL, no mech ventilation (per my discussion with patient's ) PCP: [facility] Dispo: SW consulted to help with discharge placement Patient seen in collaboration with Dr. Garber. Please see addendum. ADDENDUM: I have seen and evaluated the patient and agree with the assessment and plan as above. Per my exam, the patient was clearly somnolent and nonverbal which is his baseline. Per his , he was adamantly refusing BIPAP because of being scared of aspiration like what happened during his last admission. and I talked him into trying the BIPAP for the severe CO2 retention and strict NPO status was communicated to all nursing staff. Also scheduled Zofran while BIPAP in place to avoid nausea as a trigger to vomit with the mask in place. Initial ABG on 23/01 revealed a worsened pH. Dr. Oliver adjusted settings to 20/8 with clinical improvement in level of alertness and increased pH and decreased CO2 on repeat ABG. Per pulm he is to stay on this overnight with no changes. This was communicated to the nighttime respiratory therapist. Ativan given for anxiety. Case was discussed with the nursing staff for better understanding of goals. Palliative care team consulted to further discuss code status with them. Three different providers discussed code status with he and his and the consistent response was full code without mech ventilation. They had it explained clearly by myself and Dr. Oliver that if the BIPAP doesn't work, there may not be another option for treatment if mechanical ventilation is not allowed. The patient and his both understand. On my exam he is afebrile and hemodynamically stable. Lung exam was severely limited with patient not taking deep breaths and having severe kyphosis. Some wheezing heard in L lung field and diminished breath sounds throughout. Cont BIPAP and maintenance IVF while NPO. Unasyn for sinusitis vs aspiration PNA. Strict NPO. Jcarlos, DO Level of Care Telemetry Resuscitation Status FULL NO MECH VENTILATION VTE Prophylaxis VTE Risk Assessment Done? Y/N: Yes Risk Level: Moderate Given or contraindicated: Enoxaparin (Lovenox)SQ
--- NOTE | 2017-07-05 15:45 | Palliative Care Progress Note ---
Palliative Care Progress Note Date of Service Jul 05, 2017. Subjective Consult received. Spoke with Lise Crook PA-C. Will see patient and family tomorrow 07/06.
[2017-07-05] MEDS ORDERED: D5NSS + 20MEQ KCL 1,000 ML IV SCH (17:00)
[2017-07-05 17:08] LABS: URINE APPEARANCE CLEAR (CLEAR); URINE BILIRUBIN NEG (NEG); URINE COLOR YELLOW; URINE NITRITE NEG (NEG); URINE PH 5.5 (4.5-7.5); URINE SPECIFIC GRAVITY 1.012 (1.000-1.030); UROBILINOGEN NEG (NEG); ZZURINE CULT IF INDIC CATH NO
[2017-07-05 17:10] LABS: MANUAL MICROSCOPIC REQUIRED? NO; REVIEW REQ? NO
[2017-07-05] MEDS: AMPICILLIN/SULBACTAM SOD INJ 3,000 MG in SODIUM CHLORIDE 0.9% 100ML 100 ML IV SCH ×2 (17:11→21:38)
[2017-07-05] MEDS: ONDANSETRON INJ 2 MG/ML 2 ML VIAL IV SCH ×2 (17:12→21:38)
[2017-07-05 17:21] LABS: ALLEN TEST POS (POS); ARTERIAL BLD GAS O2 SATURATION 92.6 % (90-95); ARTERIAL BLOOD GAS BASE EXCESS 6.7 mEq/L (-9-1.8); ARTERIAL BLOOD GAS HCO3 40 mmol/L (19-24); ARTERIAL BLOOD GAS PO2 77 mm/Hg (80-95); O2 ADMINISTRATION 40%
[2017-07-05 17:22] LABS: ARTERIAL BLOOD GAS pH 7.16 (7.35-7.45)
--- NOTE | 2017-07-05 18:53 | Pulmonary Consultation ---
History General Date of Service: Jul 05, 2017. Stated Complaint: Hypercapnic Respiratory Failure HPI The patient is a 67 year old male who presents to [facility] with complaints of Hypercapnic Respiratory Failure. The patient's primary care provider is Miguel Angel Curran D.O. Mr. Lynn is a 67-year-old male with history of severe Parkinson's disease who presents with worsening altered mental status. Per patient's he had an upper respiratory tract infection since Jun 23 with symptoms of cough, chills , nasal congestion and empirically started on azithromycin by primary care physician. On Tuesday, he became dyspneic, and had worsening cough and wheezing. She noted the patient had decreased oxygen saturation on Tuesday evening to low as 44% which improved with breathing exercises. This happened again on Tuesday night as well. They borrowed oxygen over the weekend. They visited primary care physician on 07/04/2017 and was started on home oxygen, oral prednisone and switched to Augmentin for aspiration pneumonia coverage. PCP note documents hypoxia to 86% in office. Prompted to go to ER, but patient refused. When went to wake patient this morning, he seemed lethargic, so she brought him in to ER for further evaluation. Per patient slept well through the night but was difficult to arouse this morning. He would awake intermittently and just off back to sleep. She states that he had a similar presentation with hypercarbic respiratory failure in February of this year and was subsequently intubated. Patient has history of bilateral lower extremity edema. Mrs. Lynn states that she has had similar URI symptoms for the last 6 weeks and feels that he may have contracted something from her. Initial vital signs in the ER showed a temperature 37.1, pulse 57, respiratory rate of 25, blood pressure 105/73, pulse oximetry 95% on 2 L nasal cannula. Initial laboratory data showed a white blood cell count is 10, hemoglobin of 13 , platelet count 238. ESR 15, CRP 0.67. Chemistry showed sodium of 133, potassium 5.2, chloride 94, carbon dioxide of 38 , BUN 12, creatinine 0.84. Lactate 0.86. Troponin 0.087, proBNP 1767. Total protein 6.7, albumin 3. Blood cultures were drawn and are pending. He was admitted for acute on chronic hypercapnic respiratory failure. Historian: patient, other Onset: last week Severity: severe Review of Systems Constitutional: reports: as stated in HPI Eyes: reports: as stated in HPI ENT: reports: as stated in HPI Cardiovascular: reports: as stated in HPI Respiratory: reports: as stated in HPI Gastrointestinal: reports: as stated in HPI Genitourinary - Male: reports: as stated in HPI Musculoskeletal: reports: as stated in HPI Integumentary: reports: as stated in HPI Neurologic: reports: as stated in HPI Psychiatric: reports: as stated in HPI Endocrine: as stated in HPI Hematologic / Lymphatic: as stated in HPI Allergic / Immunologic: as stated in HPI All Other Symptoms All Other Systems: Reviewed and Negative Past Medical History Past Medical History: BPH, GERD, high cholesterol, hypertension, kidney stones , other Past Surgical History: tonsillectomy, other Family History Diabetes mellitus MOTHER FH: asthma FATHER FH: prostate cancer FATHER Hypertension FATHER SISTER Kidney disease Kidney stones Social History Hx Tobacco Use In Past Year?: No Smoking Status: Never Smoker Marital status: Housing status: lives with significant other Immunizations History of Influenza Vaccine: Yes Influenza Vaccine Date: Jul 27, 2016 History of Tetanus Vaccine?: Yes Tetanus Immunization Date: Jul 27, 2016 History of Pneumococcal: Yes Pneumococcal Date: Dec 15, 2012 History of MDRO History of MDRO: Yes Type of MDRO: MRSA Allergies Coded Allergies: Sulindac (Verified Adverse Reaction, Intermediate, STOMACH IRRATION, 07/05) Current Medications Reported Home Medications Medications Dose Route/Sig Max Daily Dose Days Date Category Dose Instructions Prednisone 20 Mg Tab 1 Tab PO UD 07/05/17 Reported 1 tab 3 times a day for 3 days, then 1 tab 2 times a day for 3 days, then 1 tab daily for 3 days. Augmentin 875-125 mg (Amoxicillin & Pot Clavulanate) 1 Tab Tab 1 Tab PO BID 07/05/17 Reported Ropinirole Er (Ropinirole Hydrochloride) 12 Mg Tab 1 Tab PO HS 07/05/17 Reported Vitamin B-12 (Cyanocobalamin) 1,000 Mcg Tab 1,500 Mcg PO DAILY 07/05/17 Reported Sinemet Cr 25MG/100MG (Carbidopa/Levodopa) Tabcr 1 Tab PO HS 07/05/17 Reported [place]-3 (Fish Oil) 1 Ea Cap 1,000 Mg PO DAILY 07/05/17 Reported Niacin 500 Mg Tab 500 Mg PO DAILY 07/05/17 Reported Prinivil (Lisinopril) 10 Mg Tab 10 Mg PO DAILY 07/05/17 Reported Prilosec (Omeprazole) 20 Mg Capcr 20 Mg PO DAILY 07/05/17 Reported Kp Ferrous Sulfate (Ferrous Sulfate) 325 Mg Tab 325 Mg PO BID 30 07/05/17 Reported Transderm-Scop (Scopolamine) 1 Mg/3 Days Dis 1.5 Mg TD Q72H 03/21/17 Rx Klonopin (Clonazepam) 0.5 Mg Tab 1 Mg PO HS 30 03/21/17 Rx Requip (Ropinirole HCl) 4 Mg Tab 4 Mg PO QID 03/12/17 Reported Sinemet 25MG/100MG (Carbidopa/Levodopa) Tab 1.5 Tab PO 5XD 03/11/17 Reported Tamsulosin HCl 0.4 Mg Cap 0.4 Mg PO HS 12/24/16 Reported Lopressor (Metoprolol Tartrate) 25 Mg Tab 25 Mg PO BID 90 04/14/15 Reported Physical Physical Exam Vital Signs: Date Time Temp Pulse Resp B/P (MAP) Pulse Ox O2 Delivery O2 Flow Rate FiO2 07/05/17 15:36 82 96 40 07/05/17 15:31 36.6 80 18 105/74 98 BiPAP 60 07/05/17 14:40 36.5 88 20 104/66 (79) 91 BiPAP 60 07/05/17 13:48 80 94 60 07/05/17 13:47 69 24 130/70 95 Nasal Cannula 2.0 07/05/17 12:14 64 24 116/73 96 Nasal Cannula 2.0 07/05/17 11:00 95 Nasal Cannula 2.0 07/05/17 10:53 37.1 57 25 105/73 95 Nasal Cannula 07/05/17 10:53 95 Nasal Cannula 07/05/17 10:49 66 General Appearance: WELL-APPEARING, NO APPARENT DISTRESS, obese, other (on BiPAP. ) Head: NORMOCEPHALIC, ATRAUMATIC Eyes: PERRLA, SCLERAE NORMAL ENT: other (unable to examine as patient is on BiPAP.) Neck: NO TENDERNESS, TRACHEA MIDLINE, NO STRIDOR, SUPPLE Respiratory: other (diminished breath sounds bilaterally.) Cardiovasular: REGULAR RATE/RHYTHM, NORMAL S1S2, NO M/G/R Abdomen: NON TENDER, NORMAL BOWEL SOUNDS, NO REBOUND, NO MASSES Back: NORMAL INSPECTION Upper Extremities: NO EDEMA, NO DEFORMITY, other (no cyanosis, no clubbing) Lower Extremities: NO EDEMA, NO DEFORMITY Neuro: lethargic, other (Minimally responsive to painful stimuli but then able to squeeze hand upon command bilaterally.) Diagnostics Labs Results Past 24 Hours Test 07/05/17 11:33 07/05/17 11:50 07/05/17 16:55 07/05/17 16:58 Range/Units White Blood Count 10.24 4.8-10.8 K/uL Red Blood Count 4.87 4.7-6.1 M/uL Hemoglobin 13.6 14.0-18.0 g/dL Hematocrit 44.7 42-52 % Mean Corpuscular Volume 91.8 80-100 fL Mean Corpuscular Hemoglobin 27.9 25-34 pg Mean Corpuscular Hemoglobin Concent 30.4 32-36 g/dl Platelet Count 238 130-400 K/uL Mean Platelet Volume 9.4 7.4-10.4 fL Neutrophils (%) (Auto) 89.9 % Lymphocytes (%) (Auto) 3.2 % Monocytes (%) (Auto) 6.4 % Eosinophils (%) (Auto) 0.1 % Basophils (%) (Auto) 0.1 % Neutrophils # (Auto) 9.20 1.4-6.5 K/uL Lymphocytes # (Auto) 0.33 1.2-3.4 K/uL Monocytes # (Auto) 0.66 0.11-0.59 K/uL Eosinophils # (Auto) 0.01 0-0.5 K/uL Basophils # (Auto) 0.01 0-0.2 K/uL RDW Standard Deviation 62.9 36.4-46.3 fL RDW Coefficient of Variation 18.5 11.5-14.5 % Immature Granulocyte % (Auto) 0.3 % Immature Granulocyte # (Auto) 0.03 0.00-0.02 K/uL Erythrocyte Sedimentation Rate 15 0-14 mm/hr Prothrombin Time 11.9 9.0-12.0 SECONDS Prothromb Time International Ratio 1.1 0.9-1.1 Activated Partial Thromboplast Time 28.2 21.0-31.0 SECONDS Partial Thromboplastin Ratio 1.1 Venous Blood pH 7.22 7.36-7.41 Venous Blood Partial Pressure CO2 100 38.0-50.0 mmHg Venous Blood Partial Pressure O2 34 mmHg Venous Blood HCO3 40 mmol/L Venous Blood Oxygen Saturation 60.3 % Venous Blood Base Excess 7.8 mEq/L Sodium Level 133 136-145 mmol/L Potassium Level 5.2 3.5-5.1 mmol/L Chloride Level 94 98-107 mmol/L Carbon Dioxide Level 38 21-32 mmol/L Anion Gap 1.0 3-11 mmol/L Blood Urea Nitrogen 12 7-18 mg/dl Creatinine 0.84 0.60-1.40 mg/dl Est Creatinine Clear Calc Drug Dose 96.6 ml/min Estimated GFR () 106.5 Estimated GFR (Non- 91.9 BUN/Creatinine Ratio 14.7 10-20 Random Glucose 104 70-99 mg/dl Calcium Level 8.0 8.5-10.1 mg/dl Phosphorus Level 3.9 2.5-4.9 mg/dl Magnesium Level 2.2 1.8-2.4 mg/dl Total Bilirubin 0.3 0.2-1 mg/dl Aspartate Amino Transf (AST/SGOT) 13 15-37 U/L Alanine Aminotransferase (ALT/SGPT) < 6 12-78 U/L Alkaline Phosphatase 76 45-117 U/L Total Creatine Kinase 47 39-308 U/L Creatine Kinase MB 2.4 0.5-3.6 ng/ml Creatine Kinase MB Ratio 5.1 0-3.0 Troponin I 0.087 0-0.045 ng/ml C-Reactive Protein 0.67 0-0.29 mg/dl Pro-B-Type Natriuretic Peptide 1762 0-900 pg/ml Total Protein 6.7 6.4-8.2 gm/dl Albumin 3.0 3.4-5.0 gm/dl Globulin 3.7 2.5-4.0 gm/dl Albumin/Globulin Ratio 0.8 0.9-2 Lipase 91 73-393 U/L Bedside Lactic Acid Venous 0.86 0.90-1.70 mmol/L Urine Color YELLOW Urine Appearance CLEAR CLEAR Urine pH 5.5 4.5-7.5 Urine Specific [place] 1.012 1.000-1.030 Urine Protein NEG NEG Urine Glucose (UA) NEG NEG Urine Ketones NEG NEG Urine Occult Blood NEG NEG Urine Nitrite NEG NEG Urine Bilirubin NEG NEG Urine Urobilinogen NEG NEG Urine Leukocyte Esterase NEG NEG Urine WBC (Auto) 1-5 0-5 /hpf Urine RBC (Auto) 0-4 0-4 /hpf Urine Hyaline Casts (Auto) 5-10 0-5 /lpf Urine Epithelial Cells (Auto) 5-10 0-5 /lpf Urine Bacteria (Auto) NEG NEG Arterial Blood pH 7.16 7.35-7.45 Arterial Blood Partial Pressure CO2 114 35-46 mmHg Arterial Blood Partial Pressure O2 77 80-95 mm/Hg Arterial Blood HCO3 40 19-24 mmol/L Arterial Blood Oxygen Saturation 92.6 90-95 % Arterial Blood Base Excess 6.7 -9-1.8 mEq/L Arterial Blood Gas Delivery 40% Luigi Test POS POS Test 07/05/17 17:30 Range/Units Microbiology Results 07/05/17 Blood Culture, Received Pending 07/05/17 Blood Culture, Received Pending Diagnostic Radiology CHEST ONE VIEW PORTABLE CLINICAL HISTORY: Sepsis COMPARISON STUDY: 03/17/2017 FINDINGS: The cardiac and mediastinal contours remain stable. There is a left-sided generator with electrodes extending to the head likely representing a neurostimulator. Mild pulmonary venous hypertension is suspected. There is a small right pleural effusion. Basilar opacities are likely atelectatic. IMPRESSION: 1. Mild pulmonary venous hypertension 2. Small right pleural effusion 3. Bibasilar opacities likely atelectatic CT HEAD WITHOUT CONTRAST (CT) CLINICAL HISTORY: Altered mental status COMPARISON STUDY: No previous studies for comparison. TECHNIQUE: Axial CT of the brain is performed from the vertex to the skull base. IV contrast was not administered for this examination. A dose lowering technique was utilized adhering to the principles of ALARA. CT DOSE: 847.48 mGycm FINDINGS: No intra or extra-axial mass lesions are visualized. There is no CT evidence of acute cortical infarction. There is no evidence of midline shift. There is no acute hemorrhage. No calvarial fractures are visualized. There are bilateral deep brain stimulators. There is mild encephalomalacia surrounding the left stimulator lead. There is no evidence of pathologic ventricular dilatation. There is pansinus mucosal thickening. IMPRESSION: 1. No acute intracranial findings 2. Bilateral deep brain stimulators with encephalomalacia surrounding the left stimulator lead 3. Pansinus disease EKG EKG 07/05/2017 Normal sinus rhythm with ventricular rate of 61 bpm T wave abnormality, consider anterolateral ischemia Abnormal ECG Impression Assessment and Plan Acute on chronic hypoxemic hypercapnic respiratory failure-etiology unknown Possible aspiration pneumonia Severe Parkinson's disease Acute hypoxic hypercapnic respiratory failure, Etiology unknown. It may be secondary to medications, underlying infectious etiology or progression of Parkinson's disease, a neuromuscular disorder. Initial VBG was 7.22/100/34/40 saturating 60.3% on room air. Baseline CO2 from previous ABG is around 70. In the ER he was placed on BiPAP for hypercapnic respiratory failure. His initial settings were12/5, FiO2 40% , respiratory rate of 15. I was informed by nursing staff that repeat ABG showed 7.16/114/77/40/92%. The patient was minimally responsive to painful stimuli. I increased his settings to BiPAP 20/8, FiO2 of 40% and a respiratory rate of 15. Tidal volumes 500-700 mL. I spoke to at great length and explained that he does state was quite critical. That if he did not respond with BiPAP he probably would not survive the night without intubation. Tearfully she expressed full understanding but states that his wishes with her not to be on mechanical ventilation. I also explained to her that if his heart should stop the likelihood of his survival with a full code and will be unlikely without intubation. At the current time I would continue with BiPAP at the current settings as he is becoming more arousable to verbal stimuli. Keep him NPO for now. I would repeat ABG within the next hour to see if we need to adjust settings any further. I would avoid all sedatives or narcotics at this time as this can exacerbate CO2 retention. Continue with empiric antibiotics to cover for possible aspiration. Plan patient is clinically more clinically stable cane consider CT chest with contrast to rule out pulmonary embolism. Again TTE to document EF and to evaluate for pulmonary hypertension in the setting of markedly elevated troponin and elevated BNP. Obtain lower extremity Dopplers. Continue with DVT prophylaxis. I also discussed case with hospitalist Dr. Garber.
[2017-07-05 19:52] LABS: ARTERIAL BLD GAS O2 SATURATION 93.5 % (90-95); ARTERIAL BLOOD GAS BASE EXCESS 7.7 mEq/L (-9-1.8); ARTERIAL BLOOD GAS HCO3 39 mmol/L (19-24); ARTERIAL BLOOD GAS PO2 76 mm/Hg (80-95); ARTERIAL BLOOD GAS pH 7.23 (7.35-7.45)
[2017-07-05 19:53] LABS: ALLEN TEST POS (POS); O2 ADMINISTRATION 40%
[2017-07-05] MEDS: LORAZEPAM 2 MG/ML 1 ML VIAL IV PRN (20:57)
[2017-07-05] MEDS: ENOXAPARIN 40 MG/0.4 ML SYR SC SCH (21:38)
[2017-07-06] VITALS (18 sets, daily range): BP systolic 85–180; BP diastolic 52–87; PULSE 78–101; TEMP 36.3–37.4; O2SAT 92–98
[2017-07-06] MEDS ORDERED: D5W AND NSS 1,000 ML IV SCH
[2017-07-06] MEDS: AMPICILLIN/SULBACTAM SOD INJ 3,000 MG in SODIUM CHLORIDE 0.9% 100ML 100 ML IV SCH ×4 (03:48→21:42)
[2017-07-06] MEDS: LORAZEPAM 2 MG/ML 1 ML VIAL IV PRN ×2 (04:57→14:58)
[2017-07-06] MEDS: ONDANSETRON INJ 2 MG/ML 2 ML VIAL IV SCH ×3 (06:04→21:42)
[2017-07-06 07:04] LABS: ARTERIAL BLD GAS O2 SATURATION 93.1 % (90-95); ARTERIAL BLOOD GAS BASE EXCESS 10.3 mEq/L (-9-1.8); ARTERIAL BLOOD GAS HCO3 41 mmol/L (19-24); ARTERIAL BLOOD GAS PO2 73 mm/Hg (80-95); ARTERIAL BLOOD GAS pH 7.27 (7.35-7.45)
[2017-07-06 07:04] LABS: HEMATOCRIT 42.6 % (42-52); MEAN CELL VOLUME 93.6 fL (80-100); MEAN CORPUSCULAR HEMOGLOBIN 28.4 pg (25-34); MEAN CORPUSCULAR HGB CONC 30.3 g/dl (32-36); MEAN PLATELET VOLUME 9.4 fL (7.4-10.4); PLATELET COUNT 208 K/uL (130-400); RED BLOOD COUNT 4.55 M/uL (4.7-6.1); WHITE BLOOD COUNT 8.61 K/uL (4.8-10.8)
[2017-07-06 07:05] LABS: ALLEN TEST POS (POS); O2 ADMINISTRATION 15 L
[2017-07-06 07:13] LABS: INR 1.1 (0.9-1.1); PROTHROMBIN TIME (PATIENT) 12.3 SECONDS (9.0-12.0)
[2017-07-06 07:34] LABS: CALCIUM 7.9 mg/dl (8.5-10.1); CREATININE 0.81 mg/dl (0.60-1.40); POTASSIUM 4.8 mmol/L (3.5-5.1)
[2017-07-06] MEDS ORDERED: MoRPHine SULFATE 2 MG/ML CARP IV ONE (09:15)
--- NOTE | 2017-07-06 10:20 | Progress Note ---
Medicine Progress Note Date & Time of Visit: Jul 06, 2017 at 10:20 . Subjective No fever. Restless throughout the night. Pulled off BiPAP mask several times. Increasing chest congestion and wheezing this morning. Confused. Patient unable to respond appropriately to any questions. at bedside. . Objective Last 8 Hrs Date Time Temp Pulse Resp B/P (MAP) Pulse Ox O2 Delivery O2 Flow Rate FiO2 07/06/17 08:00 98 Oxymask 15.0 07/06/17 07:50 36.3 78 20 85/53 (64) 96 BiPAP 07/06/17 05:06 37.4 101 22 120/72 (88) 96 BiPAP 07/06/17 04:00 96 BiPAP 40 Physical Exam: General- restless, no acute distress Eyes- anicteric Neck- + JVD Lungs- scattered rhonchi, diffuse wheezing Heart- RRR Abdomen- + BS, soft, nontender Extremities- no pretibial edema or calf tenderness Neuro- somnolent, restless, follows simple commands . Laboratory Results: Last 24 Hours Test 07/05/17 11:33 07/05/17 11:50 07/05/17 16:55 07/05/17 16:58 White Blood Count 10.24 K/uL Red Blood Count 4.87 M/uL Hemoglobin 13.6 g/dL Hematocrit 44.7 % Mean Corpuscular Volume 91.8 fL Mean Corpuscular Hemoglobin 27.9 pg Mean Corpuscular Hemoglobin Concent 30.4 g/dl Platelet Count 238 K/uL Mean Platelet Volume 9.4 fL Neutrophils (%) (Auto) 89.9 % Lymphocytes (%) (Auto) 3.2 % Monocytes (%) (Auto) 6.4 % Eosinophils (%) (Auto) 0.1 % Basophils (%) (Auto) 0.1 % Neutrophils # (Auto) 9.20 K/uL Lymphocytes # (Auto) 0.33 K/uL Monocytes # (Auto) 0.66 K/uL Eosinophils # (Auto) 0.01 K/uL Basophils # (Auto) 0.01 K/uL RDW Standard Deviation 62.9 fL RDW Coefficient of Variation 18.5 % Immature Granulocyte % (Auto) 0.3 % Immature Granulocyte # (Auto) 0.03 K/uL Erythrocyte Sedimentation Rate 15 mm/hr Prothrombin Time 11.9 SECONDS Prothromb Time International Ratio 1.1 Activated Partial Thromboplast Time 28.2 SECONDS Partial Thromboplastin Ratio 1.1 Venous Blood pH 7.22 Venous Blood Partial Pressure CO2 100 mmHg Venous Blood Partial Pressure O2 34 mmHg Venous Blood HCO3 40 mmol/L Venous Blood Oxygen Saturation 60.3 % Venous Blood Base Excess 7.8 mEq/L Sodium Level 133 mmol/L Potassium Level 5.2 mmol/L Chloride Level 94 mmol/L Carbon Dioxide Level 38 mmol/L Anion Gap 1.0 mmol/L Blood Urea Nitrogen 12 mg/dl Creatinine 0.84 mg/dl Est Creatinine Clear Calc Drug Dose 96.6 ml/min Estimated GFR () 106.5 Estimated GFR (Non- 91.9 BUN/Creatinine Ratio 14.7 Random Glucose 104 mg/dl Calcium Level 8.0 mg/dl Phosphorus Level 3.9 mg/dl Magnesium Level 2.2 mg/dl Total Bilirubin 0.3 mg/dl Aspartate Amino Transf (AST/SGOT) 13 U/L Alanine Aminotransferase (ALT/SGPT) < 6 U/L Alkaline Phosphatase 76 U/L Total Creatine Kinase 47 U/L Creatine Kinase MB 2.4 ng/ml Creatine Kinase MB Ratio 5.1 Troponin I 0.087 ng/ml C-Reactive Protein 0.67 mg/dl Pro-B-Type Natriuretic Peptide 1762 pg/ml Total Protein 6.7 gm/dl Albumin 3.0 gm/dl Globulin 3.7 gm/dl Albumin/Globulin Ratio 0.8 Lipase 91 U/L Bedside Lactic Acid Venous 0.86 mmol/L Urine Color YELLOW Urine Appearance CLEAR Urine pH 5.5 Urine Specific [place] 1.012 Urine Protein NEG Urine Glucose (UA) NEG Urine Ketones NEG Urine Occult Blood NEG Urine Nitrite NEG Urine Bilirubin NEG Urine Urobilinogen NEG Urine Leukocyte Esterase NEG Urine WBC (Auto) 1-5 /hpf Urine RBC (Auto) 0-4 /hpf Urine Hyaline Casts (Auto) 5-10 /lpf Urine Epithelial Cells (Auto) 5-10 /lpf Urine Bacteria (Auto) NEG Arterial Blood pH 7.16 Arterial Blood Partial Pressure CO2 114 mmHg Arterial Blood Partial Pressure O2 77 mm/Hg Arterial Blood HCO3 40 mmol/L Arterial Blood Oxygen Saturation 92.6 % Arterial Blood Base Excess 6.7 mEq/L Arterial Blood Gas Delivery 40% Luigi Test POS Test 07/05/17 19:30 07/05/17 19:35 07/05/17 23:16 07/06/17 06:48 Troponin I 0.048 ng/ml 0.066 ng/ml 0.076 ng/ml Arterial Blood pH 7.23 Arterial Blood Partial Pressure CO2 95 mmHg Arterial Blood Partial Pressure O2 76 mm/Hg Arterial Blood HCO3 39 mmol/L Arterial Blood Oxygen Saturation 93.5 % Arterial Blood Base Excess 7.7 mEq/L Arterial Blood Gas Delivery 40% Luigi Test POS White Blood Count 8.61 K/uL Red Blood Count 4.55 M/uL Hemoglobin 12.9 g/dL Hematocrit 42.6 % Mean Corpuscular Volume 93.6 fL Mean Corpuscular Hemoglobin 28.4 pg Mean Corpuscular Hemoglobin Concent 30.3 g/dl RDW Standard Deviation 61.1 fL RDW Coefficient of Variation 17.7 % Platelet Count 208 K/uL Mean Platelet Volume 9.4 fL Prothrombin Time 12.3 SECONDS Prothromb Time International Ratio 1.1 Sodium Level 138 mmol/L Potassium Level 4.8 mmol/L Chloride Level 97 mmol/L Carbon Dioxide Level 40 mmol/L Anion Gap 1.0 mmol/L Blood Urea Nitrogen 10 mg/dl Creatinine 0.81 mg/dl Est Creatinine Clear Calc Drug Dose 101.2 ml/min Estimated GFR () 108.1 Estimated GFR (Non- 93.3 BUN/Creatinine Ratio 12.0 Random Glucose 96 mg/dl Calcium Level 7.9 mg/dl Test 07/06/17 06:55 Arterial Blood pH 7.27 Arterial Blood Partial Pressure CO2 90 mmHg Arterial Blood Partial Pressure O2 73 mm/Hg Arterial Blood HCO3 41 mmol/L Arterial Blood Oxygen Saturation 93.1 % Arterial Blood Base Excess 10.3 mEq/L Arterial Blood Gas Delivery 15 L Luigi Test POS Date/Time Source Procedure Growth Status 07/05/17 11:40 Blood Blood Culture Pending Received 07/05/17 11:33 Blood Blood Culture Pending Received Assessment & Plan ACUTE HYPOXIC AND HYPERCAPNIC RESPIRATORY FAILURE Oxygen saturation 66% at home prior to admission. ABG demonstrated PCO2 as high as 114. Primary Medicine consulted. BiPAP being used intermittently immensely support, but patient unable to tolerate a for long present time. Spouse reinforces that patient does not wish to be intubated again under any circumstances. Suspected underlying aspiration pneumonia. Very bronchospastic today. Add IV methylprednisolone and ipratropium/levalbuterol nebs. Continue BiPAP as tolerated, titrate supplemental oxygen to maintain sats in the high 80s - low 90s. PNEUMONIA Suspected aspiration pneumonia. Continue ampicillin/sulbactam. At risk for MRSA pneumonia due to prior history of MRSA. Add vancomycin for MRSA coverage. Add doxycycline for atypical coverage. RIGHT PLEURAL EFFUSION Right pleural effusion noted on chest x-ray. Management per Primary Medicine. May be difficult to perform thoracentesis safely at this time. ELEVATED SERUM TROPONIN Likely nonspecific elevation secondary to pneumonia/respiratory failure. Doubt acute coronary syndrome. ENCEPHALOPATHY Probably secondary to infection/hypercapnia. Management of specific problems as outlined above. PARKINSON'S DISEASE Advanced Parkinson's disease. Resume usual medications when able to swallow oral medications safely. VTE PROPHYLAXIS SQ enoxaparin. RESUSCITATION STATUS Reviewed with today. Palliative Care Team consulted. Patient has a living will. He has advanced Parkinson's disease with a poor long-term prognosis. He has clearly indicated when he was well that he did not wish to undergo intubation/mechanical ventilation again under any circumstances. If the patient's condition deteriorates and he suffers a cardiac arrest, the arrest would most likely be secondary to worsening respiratory status and a chance of meaningful recovery would be extremely low without intubation and ventilatory support. His indicates that he would prefer a natural passing rather than undergoing resuscitation efforts with a very low likelihood of a satisfactory outcome. Code status changed to "Level 5" (DNR). DISPOSITION Patient is critically ill and prognosis is guarded. Likely that he will need skilled care if his condition improves. . Current Inpatient Medications: Current Inpatient Medications Medications (Trade) Dose Ordered Sig/Luz Route Start Time Stop Time Status Last Admin Dose Admin Ondansetron HCl (Zofran Inj) 4 mg Q8 IV 07/05/17 14:00 08/04/17 13:59 07/06/17 06:04 4 MG Enoxaparin Sodium (Lovenox Inj) 40 mg Q24H SC 07/05/17 21:00 08/04/17 13:59 07/05/17 21:38 40 MG Ampicillin Sodium/ Sulbactam Sodium 3000 mg/Sodium Chloride 108 ml @ 200 mls/hr Q6H IV 07/05/17 16:00 07/12/17 15:59 07/06/17 09:50 200 MLS/HR Lorazepam (Ativan Inj) 0.5 mg Q6H PRN IV 07/05/17 20:45 08/04/17 20:44 07/06/17 04:57 0.5 MG
[2017-07-06] MEDS: LORAZEPAM INJ 1 MG in SYRINGE 0.5 ML IV PRN ×2 (10:43→18:03)
[2017-07-06] MEDS ORDERED: METHYLPREDNISOLONE IV 80 MG in SYRINGE 0 ML IV ONE (10:45)
--- NOTE | 2017-07-06 10:58 | DIAGNOSTIC IMAGING REPORT ---
CHEST ONE VIEW PORTABLE CLINICAL HISTORY: Respiratory failure COMPARISON STUDY: 07/05/2017 FINDINGS: The heart remains enlarged. There is a left-sided generator with electrodes extending to the head likely representing a neurostimulator. There are low lung volumes. There is increasing right pleural effusion with associated right basilar airspace opacities.[ IMPRESSION: Low lung volumes. Increasing right pleural effusion with associated right mid and lower lung zone airspace opacities Electronically signed by: Sam Jordan M.D. 07/06/2017 10:56 AM Dictated Date/Time: 07/06/2017 10:55 AM
[2017-07-06] MEDS ORDERED: VANCOMYCIN CONSULT ACTIVE PRN (11:00)
[2017-07-06] MEDS ORDERED: VANCOMYCIN INJ 2,250 MG in SODIUM CHLORIDE 0.9% 500ML 500 ML IV ONE (11:30)
[2017-07-06] MEDS ORDERED: LEVALBUTEROL 0.63MG/3 ML NEB INH PRN (11:30)
[2017-07-06] MEDS: DOXYCYCLINE IV 100 MG in DEXTROSE 5% 100ML 100 ML IV SCH (11:32)
[2017-07-06] MEDS: OLANZAPINE ZYDIS 5 MG ORALLY DIS. TAB PO PRN (11:33)
[2017-07-06] MEDS ORDERED: IPRATROPIUM BROMIDE NEB SOLN 0.02% 2.5 ML VIAL INH ONE (12:00)
[2017-07-06] MEDS: MoRPHine SULFATE 2 MG/ML CARP IV PRN (13:08)
--- NOTE | 2017-07-06 14:06 | Palliative Care Consultation ---
Consultation Date of Consultation: Jul 06, 2017. Requesting Physician: Lise Crook PA-C Attending Physician: Dr. Conley Reason for Consultation: Goals of care History of Present Illness This 67 year old male patient with PMH advanced Parkinson's Disease, deep brain stimulator, hx respiratory failure, and others listed below, presented to the hospital yesterday with cough, congestion, SOB, and altered mental status. History obtained from and record. Patient last admitted to [facility] in February- March 2017 with respiratory failure at which time he was intubated and successfully extubated. After hospitalization, patient went to [facility] for rehab for 21 days. He returned home with his and has been doing fairly well since then. At patient's baseline, he is oriented with some forgetfulness, walks with a walker, is able to still do things such as write checks per the . Last week, patient started with symptoms of a cold, wanted to bring him to hospital, but patient refused. Finally patient did come to ED when he was worsening yesterday. CT head showed nothing acute, CXR showed small right pleural effusion and bibasilar opacities. CXR is slightly worse today. He was attempted to be placed on bipap last night, but did not tolerate well. He is confused, was frequently pulling at mask and restless in the bed. He received IV Ativan twice-- first dose seemed to help a little, second dose did not. He received IV morphine. But again, not tolerating bipap. Patient's stated he was not to be intubated, in accordance with patient's wishes. However, she did still want him to have compressions if his heart stopped. Palliative care has been consulted to establish goals of care and provide extra layer of support to patient and family. I met with the patient and patient's , Dominique, in room 219. Patient is restless in bed, not coherent or answering questions. Oxymask is on. Patient's , myself, and Dr. Conley met in consultation room. Dominique states that patient was in his normal state of health until late last week when he developed a cold. He was doing rather well at home recently, but his care is still quite exhausting for her. Dr. Conley carefully explained patient's medical conditions and talked about code status. verbalized understanding and agreed that no resuscitation efforts should be made in the case of his heart stopping or if he stops breathing. For now, plan is to continue patient's current plan of care and wait to see if there is improvement. She reiterated over and over that patient is not to be intubated. She was concerned that he is not able to get his Parkinson's medications, but she does not want a feeding tube to be placed. She understands that patient must be able to swallow in order to get his meds. Dominique and I also discussed again what the patient's living will states: that in the case of end-stage condition, patient would want no heroic measures to keep him alive. Instead, he would like to be made comfortable and allow natural . She agreed. Past Medical/Surgical History Medical History: BPH Dyslipidemia GERD Kidney stones Htn Iron deficiency anemia Overactive bladder Parkinson's disease, advanced Venous insufficiency Inguinal hernia with repair Shoulder surgery Deep brain stimulator Tonsillectomy Social History Smoking Status: Never Smoker History of Alcohol Use: No Marital Status: Housing Status: lives with significant other Review of Systems unable to obtain ROS due to patient's altered mental status Allergies Coded Allergies: Sulindac (Verified Adverse Reaction, Intermediate, STOMACH IRRATION, 07/05) Medications Current Inpatient Medications Medications (Trade) Dose Ordered Sig/Luz Route Start Time Stop Time Status Last Admin Dose Admin Ondansetron HCl (Zofran Inj) 4 mg Q8 IV 07/05/17 14:00 08/04/17 13:59 07/06/17 06:04 4 MG Enoxaparin Sodium (Lovenox Inj) 40 mg Q24H SC 07/05/17 21:00 08/04/17 13:59 07/05/17 21:38 40 MG Ampicillin Sodium/ Sulbactam Sodium 3000 mg/Sodium Chloride 108 ml @ 200 mls/hr Q6H IV 07/05/17 16:00 07/12/17 15:59 07/06/17 09:50 200 MLS/HR Lorazepam 1 mg/ Syringe 1 ml @ 0.5 mls/min Q4H PRN IV 07/06/17 10:30 08/05/17 10:29 07/06/17 10:43 0.5 MLS/MIN Olanzapine (Zyprexa Zydis Od Tab) 2.5 mg Q6H PRN PO 07/06/17 10:30 08/05/17 10:29 Morphine Sulfate (MoRPHine SULFATE INJ) 2 mg Q2H PRN IV 07/06/17 10:30 07/20/17 10:29 Vancomycin HCl / Sodium Chloride 500 ml @ 200 mls/hr UD IV 07/06/17 10:45 07/13/17 10:44 UNV Doxycycline Hyclate 100 mg/ Dextrose 110 ml @ 50 mls/hr Q12H IV 07/06/17 12:00 07/13/17 11:59 Famotidine 20 mg/ Syringe 5 ml @ 2.5 mls/min Q12 IV 07/06/17 21:00 08/05/17 20:59 Lorazepam (Ativan Inj) 1 mg Q4H PRN IV 07/06/17 10:45 08/05/17 10:44 Vancomycin HCl (Consult) 1 ea UD PRN N/A 07/06/17 11:00 08/05/17 10:59 Physical Exam Date Time Temp Pulse Resp B/P (MAP) Pulse Ox O2 Delivery O2 Flow Rate FiO2 07/06/17 10:58 96 Oxymask 8.0 07/06/17 08:00 98 Oxymask 15.0 07/06/17 07:50 36.3 78 20 85/53 (64) 96 BiPAP 07/06/17 05:06 37.4 101 22 120/72 (88) 96 BiPAP 07/06/17 04:00 96 BiPAP 40 07/06/17 01:59 94 93 40 07/06/17 00:06 36.8 85 20 92/52 (65) 96 BiPAP 07/06/17 00:00 96 BiPAP 40 07/05/17 23:25 98 95 40 07/05/17 21:28 90 100 40 07/05/17 20:00 95 BiPAP 40 07/05/17 19:51 37.0 83 22 125/79 (94) 99 BiPAP 07/05/17 16:00 96 BiPAP 40 07/05/17 15:36 82 96 40 07/05/17 15:31 36.6 80 18 105/74 98 BiPAP 60 07/05/17 14:40 36.5 88 20 104/66 (79) 91 BiPAP 60 07/05/17 13:48 80 94 60 07/05/17 13:47 69 24 130/70 95 Nasal Cannula 2.0 07/05/17 12:14 64 24 116/73 96 Nasal Cannula 2.0 General Appearance: + pertinent finding (appears restless and somewhat agitated in bed) ENT: hearing grossly normal Neck: supple, no JVD Respiratory: no respiratory distress, + decreased breath sounds (bilateral bases), + rhonchi (coarse throughout upper lobes), + pertinent finding (no crackles ausculatated) Cardiovascular: regular rate, rhythm, no edema, + normal peripheral pulses Abdomen: normal bowel sounds, soft, + distended (mild) Neurologic/Psychiatric: + disoriented Skin: normal color Laboratory Results Last 24 Hours Test 07/05/17 11:33 07/05/17 11:50 07/05/17 16:55 07/05/17 16:58 White Blood Count 10.24 K/uL Red Blood Count 4.87 M/uL Hemoglobin 13.6 g/dL Hematocrit 44.7 % Mean Corpuscular Volume 91.8 fL Mean Corpuscular Hemoglobin 27.9 pg Mean Corpuscular Hemoglobin Concent 30.4 g/dl Platelet Count 238 K/uL Mean Platelet Volume 9.4 fL Neutrophils (%) (Auto) 89.9 % Lymphocytes (%) (Auto) 3.2 % Monocytes (%) (Auto) 6.4 % Eosinophils (%) (Auto) 0.1 % Basophils (%) (Auto) 0.1 % Neutrophils # (Auto) 9.20 K/uL Lymphocytes # (Auto) 0.33 K/uL Monocytes # (Auto) 0.66 K/uL Eosinophils # (Auto) 0.01 K/uL Basophils # (Auto) 0.01 K/uL RDW Standard Deviation 62.9 fL RDW Coefficient of Variation 18.5 % Immature Granulocyte % (Auto) 0.3 % Immature Granulocyte # (Auto) 0.03 K/uL Erythrocyte Sedimentation Rate 15 mm/hr Prothrombin Time 11.9 SECONDS Prothromb Time International Ratio 1.1 Activated Partial Thromboplast Time 28.2 SECONDS Partial Thromboplastin Ratio 1.1 Venous Blood pH 7.22 Venous Blood Partial Pressure CO2 100 mmHg Venous Blood Partial Pressure O2 34 mmHg Venous Blood HCO3 40 mmol/L Venous Blood Oxygen Saturation 60.3 % Venous Blood Base Excess 7.8 mEq/L Sodium Level 133 mmol/L Potassium Level 5.2 mmol/L Chloride Level 94 mmol/L Carbon Dioxide Level 38 mmol/L Anion Gap 1.0 mmol/L Blood Urea Nitrogen 12 mg/dl Creatinine 0.84 mg/dl Est Creatinine Clear Calc Drug Dose 96.6 ml/min Estimated GFR () 106.5 Estimated GFR (Non- 91.9 BUN/Creatinine Ratio 14.7 Random Glucose 104 mg/dl Calcium Level 8.0 mg/dl Phosphorus Level 3.9 mg/dl Magnesium Level 2.2 mg/dl Total Bilirubin 0.3 mg/dl Aspartate Amino Transf (AST/SGOT) 13 U/L Alanine Aminotransferase (ALT/SGPT) < 6 U/L Alkaline Phosphatase 76 U/L Total Creatine Kinase 47 U/L Creatine Kinase MB 2.4 ng/ml Creatine Kinase MB Ratio 5.1 Troponin I 0.087 ng/ml C-Reactive Protein 0.67 mg/dl Pro-B-Type Natriuretic Peptide 1762 pg/ml Total Protein 6.7 gm/dl Albumin 3.0 gm/dl Globulin 3.7 gm/dl Albumin/Globulin Ratio 0.8 Lipase 91 U/L Bedside Lactic Acid Venous 0.86 mmol/L Urine Color YELLOW Urine Appearance CLEAR Urine pH 5.5 Urine Specific [place] 1.012 Urine Protein NEG Urine Glucose (UA) NEG Urine Ketones NEG Urine Occult Blood NEG Urine Nitrite NEG Urine Bilirubin NEG Urine Urobilinogen NEG Urine Leukocyte Esterase NEG Urine WBC (Auto) 1-5 /hpf Urine RBC (Auto) 0-4 /hpf Urine Hyaline Casts (Auto) 5-10 /lpf Urine Epithelial Cells (Auto) 5-10 /lpf Urine Bacteria (Auto) NEG Arterial Blood pH 7.16 Arterial Blood Partial Pressure CO2 114 mmHg Arterial Blood Partial Pressure O2 77 mm/Hg Arterial Blood HCO3 40 mmol/L Arterial Blood Oxygen Saturation 92.6 % Arterial Blood Base Excess 6.7 mEq/L Arterial Blood Gas Delivery 40% Luigi Test POS Test 07/05/17 19:30 07/05/17 19:35 07/05/17 23:16 07/06/17 06:48 Troponin I 0.048 ng/ml 0.066 ng/ml 0.076 ng/ml Arterial Blood pH 7.23 Arterial Blood Partial Pressure CO2 95 mmHg Arterial Blood Partial Pressure O2 76 mm/Hg Arterial Blood HCO3 39 mmol/L Arterial Blood Oxygen Saturation 93.5 % Arterial Blood Base Excess 7.7 mEq/L Arterial Blood Gas Delivery 40% Luigi Test POS White Blood Count 8.61 K/uL Red Blood Count 4.55 M/uL Hemoglobin 12.9 g/dL Hematocrit 42.6 % Mean Corpuscular Volume 93.6 fL Mean Corpuscular Hemoglobin 28.4 pg Mean Corpuscular Hemoglobin Concent 30.3 g/dl RDW Standard Deviation 61.1 fL RDW Coefficient of Variation 17.7 % Platelet Count 208 K/uL Mean Platelet Volume 9.4 fL Prothrombin Time 12.3 SECONDS Prothromb Time International Ratio 1.1 Sodium Level 138 mmol/L Potassium Level 4.8 mmol/L Chloride Level 97 mmol/L Carbon Dioxide Level 40 mmol/L Anion Gap 1.0 mmol/L Blood Urea Nitrogen 10 mg/dl Creatinine 0.81 mg/dl Est Creatinine Clear Calc Drug Dose 101.2 ml/min Estimated GFR () 108.1 Estimated GFR (Non- 93.3 BUN/Creatinine Ratio 12.0 Random Glucose 96 mg/dl Calcium Level 7.9 mg/dl Test 07/06/17 06:55 Arterial Blood pH 7.27 Arterial Blood Partial Pressure CO2 90 mmHg Arterial Blood Partial Pressure O2 73 mm/Hg Arterial Blood HCO3 41 mmol/L Arterial Blood Oxygen Saturation 93.1 % Arterial Blood Base Excess 10.3 mEq/L Arterial Blood Gas Delivery 15 L Luigi Test POS Assessment & Plan Palliative Performance Scale: 30 % (at this time) Problem list: SOB Altered mental status Respiratory failure, hypoxemia and hypercapnic- 2/2 infectious process vs. progression of Parkinson's Parkinson's disease, advanced Goals of care (Z51.5) Palliative care recs: discussed with patient's Dominique, and Dr. Conley. -Patient is now level 5/DNR. DNI. This was in accordance with patient's wishes and per the . -For now, continue current medical care. Wait for improvement. -Per , goal is for patient to get better, get to rehab and eventually back to their home. However, is incredibly exhausted from patient's intensive care at home. She is debating at this point whether or not she would be able to take him home after rehab/SNF stay. She states she now has medical assistance in order and patient should be able to stay at SNF if needed. -Use IV Ativan and morphine with caution due to tenuous respiratory status. - is concerned about patient not getting Parkinson's meds, but does not want any sort of feeding tube placed for feeding or med administration. Once patient able to swallow, his normal meds will be resumed. Thank you kindly for this consult. I will follow.
--- NOTE | 2017-07-06 14:25 | Pharmacy Progress Note ---
Pharmacy Antibiotic Consult Date of Service: Jul 06, 2017. Pharmacy Dosing Scope Pharmacy is consulted to initiate Vancomycin IV dosing therapy, order appropriate labs and adjust drug dose/frequency. Patient is also on Unasyn and Doxycycline IV. Subjective The patient is a 67 year old male admitted on Jul 05, 2017 at 13:17. Objective Height (Feet): 5 Height (Inches): 8.00 Weight (Kilograms): 94.100 Lab Results (24hrs): Test 07/05/17 16:55 07/05/17 19:35 07/05/17 23:16 07/06/17 06:48 Urine Color YELLOW Urine Appearance CLEAR (CLEAR) Urine pH 5.5 (4.5-7.5) Urine Specific [place] 1.012 (1.000-1.030) Urine Protein NEG (NEG) Urine Glucose (UA) NEG (NEG) Urine Ketones NEG (NEG) Urine Occult Blood NEG (NEG) Urine Nitrite NEG (NEG) Urine Bilirubin NEG (NEG) Urine Urobilinogen NEG (NEG) Urine Leukocyte Esterase NEG (NEG) Urine WBC (Auto) 1-5 /hpf (0-5) Urine RBC (Auto) 0-4 /hpf (0-4) Urine Hyaline Casts (Auto) 5-10 /lpf (0-5) Urine Epithelial Cells (Auto) 5-10 /lpf (0-5) Urine Bacteria (Auto) NEG (NEG) Arterial Blood pH 7.23 (7.35-7.45) Arterial Blood Partial Pressure CO2 95 mmHg (35-46) Arterial Blood Partial Pressure O2 76 mm/Hg (80-95) Arterial Blood HCO3 39 mmol/L (19-24) Arterial Blood Oxygen Saturation 93.5 % (90-95) Arterial Blood Base Excess 7.7 mEq/L (-9-1.8) Arterial Blood Gas Delivery 40% Luigi Test POS (POS) Troponin I 0.066 ng/ml (0-0.045) 0.076 ng/ml (0-0.045) White Blood Count 8.61 K/uL (4.8-10.8) Red Blood Count 4.55 M/uL (4.7-6.1) Hemoglobin 12.9 g/dL (14.0-18.0) Hematocrit 42.6 % (42-52) Mean Corpuscular Volume 93.6 fL (80-100) Mean Corpuscular Hemoglobin 28.4 pg (25-34) Mean Corpuscular Hemoglobin Concent 30.3 g/dl (32-36) RDW Standard Deviation 61.1 fL (36.4-46.3) RDW Coefficient of Variation 17.7 % (11.5-14.5) Platelet Count 208 K/uL (130-400) Mean Platelet Volume 9.4 fL (7.4-10.4) Prothrombin Time 12.3 SECONDS (9.0-12.0) Prothromb Time International Ratio 1.1 (0.9-1.1) Sodium Level 138 mmol/L (136-145) Potassium Level 4.8 mmol/L (3.5-5.1) Chloride Level 97 mmol/L (98-107) Carbon Dioxide Level 40 mmol/L (21-32) Anion Gap 1.0 mmol/L (3-11) Blood Urea Nitrogen 10 mg/dl (7-18) Creatinine 0.81 mg/dl (0.60-1.40) Est Creatinine Clear Calc Drug Dose 101.2 ml/min Estimated GFR () 108.1 Estimated GFR (Non- 93.3 BUN/Creatinine Ratio 12.0 (10-20) Random Glucose 96 mg/dl (70-99) Calcium Level 7.9 mg/dl (8.5-10.1) Test 07/06/17 06:55 Arterial Blood pH 7.27 (7.35-7.45) Arterial Blood Partial Pressure CO2 90 mmHg (35-46) Arterial Blood Partial Pressure O2 73 mm/Hg (80-95) Arterial Blood HCO3 41 mmol/L (19-24) Arterial Blood Oxygen Saturation 93.1 % (90-95) Arterial Blood Base Excess 10.3 mEq/L (-9-1.8) Arterial Blood Gas Delivery 15 L Luigi Test POS (POS) Assessment & Plan Assessment Mr. Lynn is a 67-year-old male with history of severe Parkinson's disease who presented with worsening altered mental status. He reportedly had an upper respiratory tract infection since Jun 23 with symptoms of cough, chills, nasal congestion and empirically started on azithromycin by primary care physician. On Tuesday, he became dyspneic, and had worsening cough and wheezing. Vancomycin is being initiated for pneumonia. Source unclear at this time however it is suspected to be aspiration pneumonia. Dosing will be based on the following PK parameters: Estimated half-life= 8 hours Ke=0.087 Goal trough for pulmonary indication: 15-20 mcg/mL Renal function appears stable. MRSA nasal swab ordered to aid in deescalation. Plan Vancomycin: * Loading dose: (26 mg/kg) 2250 mg IV X 1 dose then: (13mg/kg) 1250 mg IV every 10 hours. * Trough level ordered for 07/07 @1530 Pharmacy will continue to follow and will adjust dose/frequency as necessary. Thank you
[2017-07-06] MEDS: LEVALBUTEROL 1.25MG/0.5ML NEB INH SCH ×2 (16:00→19:21)
[2017-07-06] MEDS: IPRATROPIUM BROMIDE NEB SOLN 0.02% 2.5 ML VIAL INH SCH ×2 (16:01→19:21)
--- NOTE | 2017-07-06 16:41 | Pulmonology Progress Note ---
Pulmonary Progress Note Date of Service Jul 06, 2017. Attending Dr. Oliver Subjective Patient seen and examined at bedside. Per nursing staff and Dr. Conley, patient did not tolerate BiPAP last night. He became agitated and was given ativan several times throughout the night and this morning. ABG showed improvement in acidosis and he was switched to oxymask. At the time of my evaluation, patient on BIPAP and tolerating well. Currently on a 1:1 observation. is at beside. Objective VS reviewed. Gen: patient on BiPAP 20/8, RR 15, FIo2 40%, appears calm CVS: S1, S2, RRR Lungs:diminished breath sounds bilaterally R>>L Abd: soft/NT/ND/BS+ Ext: trace edema bilaterally, no cyanosis, no clubbing Labs reviewed. ABG 07/06/2017- 04/07//73/41/93%. Troponins 0.048, 0.066, 0.076. Blood cultures 07/05/2017--pending Medications reviewed. Currently on Vancomycin 1.25 mg q10h, [id number] mg q12h and Unasyn 3g q6h, Xopenex/Ipratropium nebq2h prn, morphine sulfate 2 mg q2h prn, Ativan 1 mg q4h prn, Zyprexa 2.5 mg daily, Lovenox 40 mg q24 SC.. He was given solumedrol 80 mg x 1 dose this am. Imaging viewed and reviewed by me. CXR 07/06/2017--appears to have increase in right side pleural effusion. Small lung volumes bilaterally. Assessment & Plan Acute on chronic hypoxic hypercapnic respiratory failure. Possible pneumonia. Severe Parkinson's disease. Failure to thrive. Tropinemia. Patient respiratory status remains tenuous. ABG improved slightly from this morning, however he is not at his baseline mental status. CXR shows bilateral low volumes, most likely secondary to muscular weakness and poor patient effort. Infiltrates seen on the right lung may be pneumonia vs atelectasis. It also shows an increase in right pleural effusion. I performed bedside thoracic ultrasound. There does appear to be an adequate window. However patient is intermittently agitated and feel that is unsafe to perform procedure safely at this time. I will reevaluate possible thoracentesis in the AM. Continue with empiric antibiotics, nebulizers prn. Continue with BIPAP. I will order ABG to access his acid base status. Be judicious with sedatives and narcotics as this can decrease respiratory drive. Palliative care is on board and following. Data Medications: Current Inpatient Medications Medications (Trade) Dose Ordered Sig/Luz Route Start Time Stop Time Status Last Admin Dose Admin Ondansetron HCl (Zofran Inj) 4 mg Q8 IV 07/05/17 14:00 08/04/17 13:59 07/06/17 14:19 4 MG Enoxaparin Sodium (Lovenox Inj) 40 mg Q24H SC 07/05/17 21:00 08/04/17 13:59 07/05/17 21:38 40 MG Ampicillin Sodium/ Sulbactam Sodium 3000 mg/Sodium Chloride 108 ml @ 200 mls/hr Q6H IV 07/05/17 16:00 07/12/17 15:59 07/06/17 09:50 200 MLS/HR Lorazepam 1 mg/ Syringe 1 ml @ 0.5 mls/min Q4H PRN IV 07/06/17 10:30 08/05/17 10:29 07/06/17 10:43 0.5 MLS/MIN Olanzapine (Zyprexa Zydis Od Tab) 2.5 mg Q6H PRN PO 07/06/17 10:30 08/05/17 10:29 07/06/17 11:33 2.5 MG Morphine Sulfate (MoRPHine SULFATE INJ) 2 mg Q2H PRN IV 07/06/17 10:30 07/20/17 10:29 07/06/17 13:08 2 MG Vancomycin HCl 1250 mg/Sodium Chloride 275 ml @ 125 mls/hr Q10H IV 07/06/17 20:00 07/13/17 19:59 Doxycycline Hyclate 100 mg/ Dextrose 110 ml @ 50 mls/hr Q12H IV 07/06/17 12:00 07/13/17 11:59 07/06/17 11:32 50 MLS/HR Famotidine 20 mg/ Syringe 5 ml @ 2.5 mls/min Q12 IV 07/06/17 21:00 08/05/17 20:59 Lorazepam (Ativan Inj) 1 mg Q4H PRN IV 07/06/17 10:45 08/05/17 10:44 07/06/17 14:58 1 MG Vancomycin HCl (Consult) 1 ea UD PRN N/A 07/06/17 11:00 08/05/17 10:59 Ipratropium [place] (Atrovent 0.02% 0.5MG/2.5ML Neb) 0.5 mg QIDR INH 07/06/17 16:00 08/05/17 15:59 07/06/17 16:01 0.5 MG Levalbuterol (Xopenex 1.25MG/ 0.5ML Neb) 1.25 mg QIDR INH 07/06/17 12:00 08/05/17 11:59 07/06/17 16:00 1.25 MG Levalbuterol (Xopenex 0.63 Mg/ 3 Ml Neb) 0.63 mg Q2H PRN INH 07/06/17 11:30 08/05/17 11:29 I & O: 24-Hour Column 07/07/17 08:00 Intake Total 1032 ml Output Total 500 ml Balance 532 ml Vital Signs: Date Time Temp Pulse Resp B/P (MAP) Pulse Ox O2 Delivery O2 Flow Rate FiO2 07/06/17 16:03 88 96 40 07/06/17 16:02 88 16 96 BiPAP/CPAP 40 07/06/17 12:00 98 Oxymask 15.0 07/06/17 11:34 36.3 81 22 132/80 (97) 97 07/06/17 10:58 96 Oxymask 8.0 07/06/17 08:00 98 Oxymask 15.0 07/06/17 07:50 36.3 78 20 85/53 (64) 96 BiPAP 07/06/17 05:06 37.4 101 22 120/72 (88) 96 BiPAP 07/06/17 04:00 96 BiPAP 40 07/06/17 01:59 94 93 40 07/06/17 00:06 36.8 85 20 92/52 (65) 96 BiPAP 07/06/17 00:00 96 BiPAP 40 07/05/17 23:25 98 95 40 07/05/17 21:28 90 100 40 07/05/17 20:00 95 BiPAP 40 07/05/17 19:51 37.0 83 22 125/79 (94) 99 BiPAP Laboratory Results: Last 24 Hours Test 07/05/17 16:55 07/05/17 16:58 07/05/17 19:30 07/05/17 19:35 Urine Color YELLOW Urine Appearance CLEAR Urine pH 5.5 Urine Specific [place] 1.012 Urine Protein NEG Urine Glucose (UA) NEG Urine Ketones NEG Urine Occult Blood NEG Urine Nitrite NEG Urine Bilirubin NEG Urine Urobilinogen NEG Urine Leukocyte Esterase NEG Urine WBC (Auto) 1-5 /hpf Urine RBC (Auto) 0-4 /hpf Urine Hyaline Casts (Auto) 5-10 /lpf Urine Epithelial Cells (Auto) 5-10 /lpf Urine Bacteria (Auto) NEG Arterial Blood pH 7.16 7.23 Arterial Blood Partial Pressure CO2 114 mmHg 95 mmHg Arterial Blood Partial Pressure O2 77 mm/Hg 76 mm/Hg Arterial Blood HCO3 40 mmol/L 39 mmol/L Arterial Blood Oxygen Saturation 92.6 % 93.5 % Arterial Blood Base Excess 6.7 mEq/L 7.7 mEq/L Arterial Blood Gas Delivery 40% 40% Luigi Test POS POS Troponin I 0.048 ng/ml Test 07/05/17 23:16 07/06/17 06:48 07/06/17 06:55 Troponin I 0.066 ng/ml 0.076 ng/ml White Blood Count 8.61 K/uL Red Blood Count 4.55 M/uL Hemoglobin 12.9 g/dL Hematocrit 42.6 % Mean Corpuscular Volume 93.6 fL Mean Corpuscular Hemoglobin 28.4 pg Mean Corpuscular Hemoglobin Concent 30.3 g/dl RDW Standard Deviation 61.1 fL RDW Coefficient of Variation 17.7 % Platelet Count 208 K/uL Mean Platelet Volume 9.4 fL Prothrombin Time 12.3 SECONDS Prothromb Time International Ratio 1.1 Sodium Level 138 mmol/L Potassium Level 4.8 mmol/L Chloride Level 97 mmol/L Carbon Dioxide Level 40 mmol/L Anion Gap 1.0 mmol/L Blood Urea Nitrogen 10 mg/dl Creatinine 0.81 mg/dl Est Creatinine Clear Calc Drug Dose 101.2 ml/min Estimated GFR () 108.1 Estimated GFR (Non- 93.3 BUN/Creatinine Ratio 12.0 Random Glucose 96 mg/dl Calcium Level 7.9 mg/dl Arterial Blood pH 7.27 Arterial Blood Partial Pressure CO2 90 mmHg Arterial Blood Partial Pressure O2 73 mm/Hg Arterial Blood HCO3 41 mmol/L Arterial Blood Oxygen Saturation 93.1 % Arterial Blood Base Excess 10.3 mEq/L Arterial Blood Gas Delivery 15 L Luigi Test POS
[2017-07-06 17:03] LABS: ARTERIAL BLD GAS O2 SATURATION 91.6 % (90-95); ARTERIAL BLOOD GAS BASE EXCESS 10.3 mEq/L (-9-1.8); ARTERIAL BLOOD GAS HCO3 39 mmol/L (19-24); ARTERIAL BLOOD GAS PO2 64 mm/Hg (80-95); ARTERIAL BLOOD GAS pH 7.33 (7.35-7.45)
[2017-07-06 17:04] LABS: ALLEN TEST POS (POS); O2 ADMINISTRATION 40%
[2017-07-06] MEDS: FAMOTIDINE IV INJ 20 MG in SYRINGE 3 ML IV SCH (20:41)
[2017-07-06] MEDS: ENOXAPARIN 40 MG/0.4 ML SYR SC SCH (20:45)
[2017-07-06] MEDS: VANCOMYCIN INJ 1,250 MG in SODIUM CHLORIDE 0.9% 250ML 250 ML IV SCH (20:45)
[2017-07-06] MEDS ORDERED: INSULIN ASPART 100 UNITS/ML 3 ML PEN SC ONE (21:30)
[2017-07-06] MEDS: D5W AND 1/2NSS 1,000 ML IV SCH (21:42)
[2017-07-06] MEDS: METHYLPREDNISOLONE IV 40 MG in SYRINGE 0 ML IV SCH (21:48)
[2017-07-07] VITALS (13 sets, daily range): BP systolic 149–190; BP diastolic 68–102; PULSE 79–99; TEMP 36.4–36.8; O2SAT 89–96
[2017-07-07] MEDS: LORAZEPAM 2 MG/ML 1 ML VIAL IV PRN ×2 (00:41→08:45)
[2017-07-07] MEDS: DOXYCYCLINE IV 100 MG in DEXTROSE 5% 100ML 100 ML IV SCH ×2 (00:41→12:20)
[2017-07-07] MEDS: MoRPHine SULFATE 2 MG/ML CARP IV PRN ×2 (03:47→06:41)
[2017-07-07] MEDS: AMPICILLIN/SULBACTAM SOD INJ 3,000 MG in SODIUM CHLORIDE 0.9% 100ML 100 ML IV SCH ×4 (04:17→21:37)
[2017-07-07] MEDS: METHYLPREDNISOLONE IV 40 MG in SYRINGE 0 ML IV SCH ×3 (06:40→21:35)
[2017-07-07] MEDS: VANCOMYCIN INJ 1,250 MG in SODIUM CHLORIDE 0.9% 250ML 250 ML IV SCH ×2 (06:40→18:24)
[2017-07-07] MEDS: ONDANSETRON INJ 2 MG/ML 2 ML VIAL IV SCH ×3 (06:40→21:38)
[2017-07-07] MEDS: LEVALBUTEROL 1.25MG/0.5ML NEB INH SCH ×4 (07:00→19:37)
[2017-07-07] MEDS: IPRATROPIUM BROMIDE NEB SOLN 0.02% 2.5 ML VIAL INH SCH ×4 (07:00→19:37)
[2017-07-07 07:48] LABS: BUN/CREATININE RATIO 15.3 (10-20); CALCIUM 8.3 mg/dl (8.5-10.1); CREATININE 0.76 mg/dl (0.60-1.40); POTASSIUM 4.1 mmol/L (3.5-5.1)
[2017-07-07] MEDS: INSULIN ASPART 100 UNITS/ML 3 ML PEN SC SCH ×4 (08:07→20:56)
[2017-07-07] MEDS: FAMOTIDINE IV INJ 20 MG in SYRINGE 3 ML IV SCH ×2 (08:09→21:34)
[2017-07-07] MEDS: D5W AND 1/2NSS 1,000 ML IV SCH ×2 (08:10→21:34)
[2017-07-07] MEDS: OLANZAPINE ZYDIS 5 MG ORALLY DIS. TAB PO PRN (08:53)
[2017-07-07] MEDS ORDERED: OLANZAPINE ZYDIS 5 MG ORALLY DIS. TAB PO PRN (10:00)
[2017-07-07] MEDS ORDERED: HALOPERIDOL LACTATE 5 MG/ML 1 ML VIAL IV STA (10:01)
[2017-07-07] MEDS ORDERED: HALOPERIDOL LACTATE 5 MG/ML 1 ML VIAL IV PRN (13:00)
[2017-07-07] MEDS ORDERED: VANCOMYCIN TROUGH ONE (15:30)
--- NOTE | 2017-07-07 16:00 | Palliative Care Progress Note ---
Palliative Care Progress Note Date of Service Jul 07, 2017. Subjective Saw patient briefly this morning around 1100. He was thrashing in bed, has a 1: 1 sitter at bedside. Very agitated and disoriented. I was unable to perform ROS or physical exam at the time I saw him. Per report, patient was able to wear Bipap for most of yesterday afternoon/ evening. Last night about 5pm pH was 7.33, CO2 76 (improved). Current medical management continues at this time. then came to bedside. She denied any questions/concerns. I will continue to follow.
--- NOTE | 2017-07-07 16:57 | Pulmonology Progress Note ---
Pulmonary Progress Note Date of Service Jul 07, 2017. Attending Dr. Oliver Subjective Patient continues to be agitated and lethargic, but improved from yesterday. I interviewed the patient along with Dr. Oliver who felt that the patient is doing slightly better. He was taken off of BiPAP this morning, and is now on 1 L via nasal cannula and overall saturating in the low 90s. Patient's is at the bedside. He does respond what seems to be appropriately to questions and stimuli , but with garbles speech that is hard to understand. He does follow some commands. Labs reviewed: Creatinine 0.76 BUN 12 Bicarb 38 Meds reviewed: Haldol, SoluMedrol 40 mg Q8h, Vancomycin, Atrovent, Doxycycline, Xopenex, Ativan , Unasyn ROS unreliable due to patient state. Blood cultures showing NGTD. MRSA Screen positive Objective VS reviewed: BP 149/68 RR 22 HR 86 Chest X-Ray reviewed today. Viewed by me. Low lung volumes. Increasing pleural effusion noted on the right side. General: Patient is agitated and lethargic. He does respond appropriately to some commands and uses garbled speech. Head: Normocephalic, Atraumatic. ENT: Eyes close. No nasal discharge Neck: No stridor. Trachea midline. Respiratory: Decreased breath sounds throughout, especially on left. Some coarse breath sounds noted on right. Nasal cannula o2 in place- 1L on exam. Cardiovascular: Regular rate and rhythm. Abdomen: Normal bowel sounds hear throughout. Abdomen is soft. Extremities: Trace edema of B/L LE. Neuro: Lethargic. Agitated. Assessment & Plan Acute on chronic hypoxic hypercapnic respiratory failure. Possible pneumonia. Severe Parkinson's disease. Failure to thrive. Patient appears to be very slightly improved today. Continue agitation. He was changed from BiPAP this morning to nasal cannula this morning. Will repeat blood gas today. Patient may benefit from a thoracentesis of the right-sided pleural effusion, but unfortunately his level of agitation would make this procedure technically difficult right now. If the patient improves, may consider. Also would consider CTA of the chest to R/O PE, but once again, patient would not tolerate at the current time. Continue BiPAP PRN for worsening symptoms. Continue to monitor SaO2 and keep between 88-92% ideally to avoid over oxygenation and carbon dioxide retention. Palliative care is following. Continue with currently antibiotic therapy pending further improvement. Continue to be judicious regarding sedatives and narcotics due to concern for respiratory depression from these medications. Palliative care following. Data Medications: Current Inpatient Medications Medications (Trade) Dose Ordered Sig/Luz Route Start Time Stop Time Status Last Admin Dose Admin Ondansetron HCl (Zofran Inj) 4 mg Q8 IV 07/05/17 14:00 08/04/17 13:59 07/07/17 14:19 4 MG Enoxaparin Sodium (Lovenox Inj) 40 mg Q24H SC 07/05/17 21:00 08/04/17 13:59 07/06/17 20:45 40 MG Ampicillin Sodium/ Sulbactam Sodium 3000 mg/Sodium Chloride 108 ml @ 200 mls/hr Q6H IV 07/05/17 16:00 07/12/17 15:59 07/07/17 10:54 200 MLS/HR Morphine Sulfate (MoRPHine SULFATE INJ) 2 mg Q2H PRN IV 07/06/17 10:30 07/20/17 10:29 07/07/17 06:41 2 MG Vancomycin HCl 1250 mg/Sodium Chloride 275 ml @ 125 mls/hr Q10H IV 07/06/17 20:00 07/13/17 19:59 07/07/17 06:40 125 MLS/HR Doxycycline Hyclate 100 mg/ Dextrose 110 ml @ 50 mls/hr Q12H IV 07/06/17 12:00 07/13/17 11:59 07/07/17 12:20 50 MLS/HR Famotidine 20 mg/ Syringe 5 ml @ 2.5 mls/min Q12 IV 07/06/17 21:00 08/05/17 20:59 07/07/17 08:09 2.5 MLS/MIN Lorazepam (Ativan Inj) 1 mg Q4H PRN IV 07/06/17 10:45 08/05/17 10:44 07/07/17 08:45 1 MG Vancomycin HCl (Consult) 1 ea UD PRN N/A 07/06/17 11:00 08/05/17 10:59 Ipratropium [place] (Atrovent 0.02% 0.5MG/2.5ML Neb) 0.5 mg QIDR INH 07/06/17 16:00 08/05/17 15:59 07/07/17 15:19 0.5 MG Levalbuterol (Xopenex 1.25MG/ 0.5ML Neb) 1.25 mg QIDR INH 07/06/17 12:00 08/05/17 11:59 07/07/17 15:19 1.25 MG Levalbuterol (Xopenex 0.63 Mg/ 3 Ml Neb) 0.63 mg Q2H PRN INH 07/06/17 11:30 08/05/17 11:29 Methylprednisolone Sodium Succinate 40 mg/Syringe 0.64 ml @ 1.5 mls/min Q8H IV 07/06/17 22:00 08/05/17 21:59 07/07/17 14:19 1.5 MLS/MIN Dextrose/Sodium Chloride 1,000 ml @ 100 mls/hr Q10H IV 07/06/17 21:15 08/05/17 21:14 07/07/17 08:10 100 MLS/HR Insulin Aspart (novoLOG ASPART) SLIDING SCALE G... ACHS SC 07/07/17 07:00 08/06/17 06:59 Olanzapine (Zyprexa Zydis Od Tab) 5 mg Q12H PRN PO 07/07/17 10:00 08/06/17 09:59 Haloperidol Lactate (Haldol Inj) 0.5 mg Q1H PRN IV 07/07/17 13:00 08/06/17 12:59 I & O: 24-Hour Column 07/08/17 08:00 Intake Total 794 ml Output Total 300 ml Balance 494 ml Vital Signs: Date Time Temp Pulse Resp B/P (MAP) Pulse Ox O2 Delivery O2 Flow Rate FiO2 07/07/17 16:00 91 Nasal Cannula 1.0 07/07/17 15:19 86 22 91 Nasal Cannula 1.0 07/07/17 12:00 Nasal Cannula 1.0 07/07/17 11:26 36.8 88 18 149/68 (95) 92 07/07/17 11:02 90 24 92 Nasal Cannula 1.0 07/07/17 08:00 92 BiPAP 20.0 40 07/07/17 07:00 98 92 40 07/07/17 07:00 98 32 92 BiPAP/CPAP 40 07/07/17 05:31 85 96 40 07/07/17 05:30 36.6 79 22 176/89 (118) 95 BiPAP 07/07/17 04:00 BiPAP 40 07/07/17 02:50 85 22 179/102 (127) 94 BiPAP 07/07/17 01:33 99 95 40 07/06/17 23:59 BiPAP 40 07/06/17 23:10 36.9 87 20 180/87 (118) 95 BiPAP 07/06/17 22:21 84 96 40 07/06/17 19:25 89 92 40 07/06/17 19:24 89 14 92 BiPAP/CPAP 40 07/06/17 19:12 37.1 100 25 160/86 (110) 98 BiPAP 40 Laboratory Results: Last 24 Hours Test 07/06/17 16:54 07/06/17 21:50 07/07/17 06:44 07/07/17 07:14 Arterial Blood pH 7.33 Arterial Blood Partial Pressure CO2 76 mmHg Arterial Blood Partial Pressure O2 64 mm/Hg Arterial Blood HCO3 39 mmol/L Arterial Blood Oxygen Saturation 91.6 % Arterial Blood Base Excess 10.3 mEq/L Arterial Blood Gas Delivery 40% Luigi Test POS Bedside Glucose 121 mg/dl 117 mg/dl Sodium Level 140 mmol/L Potassium Level 4.1 mmol/L Chloride Level 98 mmol/L Carbon Dioxide Level 38 mmol/L Anion Gap 4.0 mmol/L Blood Urea Nitrogen 12 mg/dl Creatinine 0.76 mg/dl Est Creatinine Clear Calc Drug Dose 107.4 ml/min Estimated GFR () 111.0 Estimated GFR (Non- 95.7 BUN/Creatinine Ratio 15.3 Random Glucose 130 mg/dl Calcium Level 8.3 mg/dl Test 07/07/17 11:43 07/07/17 16:12 07/07/17 16:29 Bedside Glucose 138 mg/dl 129 mg/dl
[2017-07-07 18:04] LABS: ALLEN TEST POS (POS); ARTERIAL BLD GAS O2 SATURATION 86.3 % (90-95); ARTERIAL BLOOD GAS BASE EXCESS 12.5 mEq/L (-9-1.8); ARTERIAL BLOOD GAS HCO3 39 mmol/L (19-24); ARTERIAL BLOOD GAS PO2 54 mm/Hg (80-95); ARTERIAL BLOOD GAS pH 7.43 (7.35-7.45); O2 ADMINISTRATION 2 L
[2017-07-07] MEDS: ENOXAPARIN 40 MG/0.4 ML SYR SC SCH (21:32)
--- NOTE | 2017-07-07 22:02 | Progress Note ---
Medicine Progress Note Date & Time of Visit: Jul 07, 2017 at 09:30 . Subjective Very agitated this morning. Trying to get out of med. Responds to some questions, but very confused. No fever. Unable to obtain review of systems. . Objective Last 8 Hrs Date Time Temp Pulse Resp B/P (MAP) Pulse Ox O2 Delivery O2 Flow Rate FiO2 07/07/17 19:33 95 22 89 Nasal Cannula 2.0 07/07/17 17:15 36.5 85 20 167/86 (113) 90 BiPAP 07/07/17 16:00 91 Nasal Cannula 1.0 07/07/17 15:19 86 22 91 Nasal Cannula 1.0 Physical Exam: General- very restless Eyes- anicteric Neck- + JVD Lungs- fewer rhonchi, less wheezing Heart- RRR Abdomen- + BS, soft, nontender Extremities- no pretibial edema or calf tenderness Neuro- somnolent, restless, follows simple commands, dyskinesia . Laboratory Results: Last 24 Hours Test 07/07/17 06:44 07/07/17 07:14 07/07/17 11:43 07/07/17 16:29 Sodium Level 140 mmol/L Potassium Level 4.1 mmol/L Chloride Level 98 mmol/L Carbon Dioxide Level 38 mmol/L Anion Gap 4.0 mmol/L Blood Urea Nitrogen 12 mg/dl Creatinine 0.76 mg/dl Est Creatinine Clear Calc Drug Dose 107.4 ml/min Estimated GFR () 111.0 Estimated GFR (Non- 95.7 BUN/Creatinine Ratio 15.3 Random Glucose 130 mg/dl Calcium Level 8.3 mg/dl Bedside Glucose 117 mg/dl 138 mg/dl 129 mg/dl Test 07/07/17 17:55 07/07/17 20:08 Arterial Blood pH 7.43 Arterial Blood Partial Pressure CO2 61 mmHg Arterial Blood Partial Pressure O2 54 mm/Hg Arterial Blood HCO3 39 mmol/L Arterial Blood Oxygen Saturation 86.3 % Arterial Blood Base Excess 12.5 mEq/L Arterial Blood Gas Delivery 2 L Luigi Test POS Bedside Glucose 131 mg/dl Assessment & Plan ACUTE HYPOXIC AND HYPERCAPNIC RESPIRATORY FAILURE Oxygen saturation 66% at home prior to admission. ABG demonstrated PCO2 as high as 114. Primary Medicine consulted. BiPAP being used intermittently for ventilatory support. Spouse reinforced that patient does not wish to be intubated again under any circumstances. Suspected underlying aspiration pneumonia. Very bronchospastic yesterday. Received IV methylprednisolone and ipratropium/levalbuterol nebs with improvement. Continue BiPAP as tolerated, titrate supplemental oxygen to maintain sats in the high 80s - low 90s. PNEUMONIA Suspected aspiration pneumonia. Receiving ampicillin/sulbactam. At risk for MRSA pneumonia due to + MRSA screen. Added vancomycin for MRSA coverage and doxycycline for atypical coverage. RIGHT PLEURAL EFFUSION Right pleural effusion noted on chest x-ray. Management per Primary Medicine. May be difficult to perform thoracentesis safely at this time. ELEVATED SERUM TROPONIN Likely nonspecific elevation secondary to pneumonia/respiratory failure. Doubt acute coronary syndrome. ENCEPHALOPATHY / DELIRIUM Probably secondary to infection/hypercapnia. Try IV haloperidol with caution. Management of specific problems as outlined above. PARKINSON'S DISEASE Advanced Parkinson's disease. Resume usual medications when able to swallow oral medications safely. VTE PROPHYLAXIS SQ enoxaparin. RESUSCITATION STATUS "Level 5" (DNR) as documented 08/06/17. DISPOSITION Patient is critically ill and prognosis is guarded. Likely that he will need skilled care if his condition improves. . Current Inpatient Medications: Current Inpatient Medications Medications (Trade) Dose Ordered Sig/Luz Route Start Time Stop Time Status Last Admin Dose Admin Ondansetron HCl (Zofran Inj) 4 mg Q8 IV 07/05/17 14:00 08/04/17 13:59 07/07/17 21:38 4 MG Enoxaparin Sodium (Lovenox Inj) 40 mg Q24H SC 07/05/17 21:00 08/04/17 13:59 07/07/17 21:32 40 MG Ampicillin Sodium/ Sulbactam Sodium 3000 mg/Sodium Chloride 108 ml @ 200 mls/hr Q6H IV 07/05/17 16:00 07/12/17 15:59 07/07/17 21:37 200 MLS/HR Morphine Sulfate (MoRPHine SULFATE INJ) 2 mg Q2H PRN IV 07/06/17 10:30 07/20/17 10:29 07/07/17 06:41 2 MG Vancomycin HCl 1250 mg/Sodium Chloride 275 ml @ 125 mls/hr Q10H IV 07/06/17 20:00 07/13/17 19:59 07/07/17 18:24 125 MLS/HR Doxycycline Hyclate 100 mg/ Dextrose 110 ml @ 50 mls/hr Q12H IV 07/06/17 12:00 07/13/17 11:59 07/07/17 12:20 50 MLS/HR Famotidine 20 mg/ Syringe 5 ml @ 2.5 mls/min Q12 IV 07/06/17 21:00 08/05/17 20:59 07/07/17 21:34 2.5 MLS/MIN Lorazepam (Ativan Inj) 1 mg Q4H PRN IV 07/06/17 10:45 08/05/17 10:44 07/07/17 08:45 1 MG Vancomycin HCl (Consult) 1 ea UD PRN N/A 07/06/17 11:00 08/05/17 10:59 Ipratropium [place] (Atrovent 0.02% 0.5MG/2.5ML Neb) 0.5 mg QIDR INH 07/06/17 16:00 08/05/17 15:59 07/07/17 19:37 0.5 MG Levalbuterol (Xopenex 1.25MG/ 0.5ML Neb) 1.25 mg QIDR INH 07/06/17 12:00 08/05/17 11:59 07/07/17 19:37 1.25 MG Levalbuterol (Xopenex 0.63 Mg/ 3 Ml Neb) 0.63 mg Q2H PRN INH 07/06/17 11:30 08/05/17 11:29 Methylprednisolone Sodium Succinate 40 mg/Syringe 0.64 ml @ 1.5 mls/min Q8H IV 07/06/17 22:00 08/05/17 21:59 07/07/17 21:35 1.5 MLS/MIN Dextrose/Sodium Chloride 1,000 ml @ 100 mls/hr Q10H IV 07/06/17 21:15 08/05/17 21:14 07/07/17 21:34 100 MLS/HR Insulin Aspart (novoLOG ASPART) SLIDING SCALE G... ACHS SC 07/07/17 07:00 08/06/17 06:59 Olanzapine (Zyprexa Zydis Od Tab) 5 mg Q12H PRN PO 07/07/17 10:00 08/06/17 09:59 Haloperidol Lactate (Haldol Inj) 0.5 mg Q1H PRN IV 07/07/17 13:00 08/06/17 12:59
[2017-07-08] VITALS (16 sets, daily range): BP systolic 115–195; BP diastolic 65–125; PULSE 70–100; TEMP 36.4–37.1; O2SAT 85–95
[2017-07-08] MEDS: DOXYCYCLINE IV 100 MG in DEXTROSE 5% 100ML 100 ML IV SCH (00:10)
[2017-07-08 03:28] LABS: HEMATOCRIT 43.5 % (42-52); MEAN CORPUSCULAR HGB CONC 31.5 g/dl (32-36); MEAN PLATELET VOLUME 9.5 fL (7.4-10.4); PLATELET COUNT 189 K/uL (130-400); RED BLOOD COUNT 4.89 M/uL (4.7-6.1); WHITE BLOOD COUNT 6.68 K/uL (4.8-10.8)
[2017-07-08] MEDS ORDERED: VANCOMYCIN TROUGH ONE (03:30)
[2017-07-08 03:48] LABS: CREATININE 0.72 mg/dl (0.60-1.40)
[2017-07-08] MEDS: AMPICILLIN/SULBACTAM SOD INJ 3,000 MG in SODIUM CHLORIDE 0.9% 100ML 100 ML IV SCH ×4 (04:22→21:43)
[2017-07-08] MEDS: VANCOMYCIN INJ 1,250 MG in SODIUM CHLORIDE 0.9% 250ML 250 ML IV SCH ×2 (04:22→13:45)
[2017-07-08] MEDS: HydrALAZINE HCL 20 MG/ML VIAL IV. PRN (05:26)
[2017-07-08] MEDS: ONDANSETRON INJ 2 MG/ML 2 ML VIAL IV SCH ×3 (05:54→22:05)
[2017-07-08] MEDS: METHYLPREDNISOLONE IV 20 MG in SYRINGE 0 ML IV SCH ×3 (05:54→21:43)
[2017-07-08] MEDS: INSULIN ASPART 100 UNITS/ML 3 ML PEN SC SCH ×4 (07:00→21:44)
[2017-07-08 07:05] LABS: BLOOD UREA NITROGEN 14 mg/dl (7-18); CALCIUM 8.6 mg/dl (8.5-10.1); CARBON DIOXIDE 38 mmol/L (21-32); CHLORIDE 99 mmol/L (98-107); CREATININE 0.79 mg/dl (0.60-1.40); GLUCOSE 116 mg/dl (70-99); SODIUM 141 mmol/L (136-145)
[2017-07-08] MEDS: IPRATROPIUM BROMIDE NEB SOLN 0.02% 2.5 ML VIAL INH SCH ×4 (07:19→19:33)
[2017-07-08] MEDS: LEVALBUTEROL 1.25MG/0.5ML NEB INH SCH ×4 (07:19→19:33)
[2017-07-08] MEDS: D5W AND 1/2NSS 1,000 ML IV SCH ×2 (07:30→21:39)
[2017-07-08] MEDS: METOPROLOL TARTRATE 25 MG TAB PO SCH ×2 (07:30→21:40)
[2017-07-08] MEDS: CARBIDOPA/LEVODOPA 25/100MG TAB PO SCH ×4 (07:32→21:42)
[2017-07-08] MEDS: PANTOprazole SOD 40 MG TAB PO SCH (07:34)
[2017-07-08] MEDS: ROPINIROLE HCL 1 MG TAB PO SCH ×4 (07:35→21:41)
[2017-07-08] MEDS: FAMOTIDINE IV INJ 20 MG in SYRINGE 3 ML IV SCH ×2 (08:02→21:39)
[2017-07-08] MEDS ORDERED: TAMSULOSIN HCL 0.4 MG CAP PO SCH (09:00)
--- NOTE | 2017-07-08 09:28 | Pharmacy Progress Note ---
Pharmacy Antibiotic Prog Note Date of Service Jul 08, 2017. Subjective The patient is currently receiving vancomycin 1250 mg iv q 10 hrs for pneumonia. The patient is currently on day # 3 of IV therapy. Objective Height (Feet): 5 Height (Inches): 8.00 Weight (Kilograms): 93.400 Levels: Item Value Date Time Vancomycin Level Trough 16.8 mcg/ml 07/08/17 0322 Lab Results (24hrs): Test 07/07/17 17:55 07/07/17 20:08 07/08/17 03:22 07/08/17 06:07 Arterial Blood pH 7.43 (7.35-7.45) Arterial Blood Partial Pressure CO2 61 mmHg (35-46) Arterial Blood Partial Pressure O2 54 mm/Hg (80-95) Arterial Blood HCO3 39 mmol/L (19-24) Arterial Blood Oxygen Saturation 86.3 % (90-95) Arterial Blood Base Excess 12.5 mEq/L (-9-1.8) Arterial Blood Gas Delivery 2 L Luigi Test POS (POS) Bedside Glucose 131 mg/dl (70-99) White Blood Count 6.68 K/uL (4.8-10.8) Red Blood Count 4.89 M/uL (4.7-6.1) Hemoglobin 13.7 g/dL (14.0-18.0) Hematocrit 43.5 % (42-52) Mean Corpuscular Volume 89.0 fL (80-100) Mean Corpuscular Hemoglobin 28.0 pg (25-34) Mean Corpuscular Hemoglobin Concent 31.5 g/dl (32-36) RDW Standard Deviation 58.4 fL (36.4-46.3) RDW Coefficient of Variation 17.7 % (11.5-14.5) Platelet Count 189 K/uL (130-400) Mean Platelet Volume 9.5 fL (7.4-10.4) Creatinine 0.72 mg/dl (0.60-1.40) 0.79 mg/dl (0.60-1.40) Est Creatinine Clear Calc Drug Dose 113.4 ml/min 103.4 ml/min Estimated GFR () 113.5 109.2 Estimated GFR (Non- 97.9 94.2 Vancomycin Level Trough 16.8 mcg/ml (SEE COMMENT) Sodium Level 141 mmol/L (136-145) Potassium Level mmol/L (3.5-5.1) Chloride Level 99 mmol/L (98-107) Carbon Dioxide Level 38 mmol/L (21-32) Anion Gap 4.0 mmol/L (3-11) Blood Urea Nitrogen 14 mg/dl (7-18) BUN/Creatinine Ratio 18.0 (10-20) Random Glucose 116 mg/dl (70-99) Calcium Level 8.6 mg/dl (8.5-10.1) Test 07/08/17 06:22 07/08/17 07:18 Bedside Glucose 106 mg/dl (70-99) Potassium Level 4.0 mmol/L (3.5-5.1) Assessment & Plan Patient on vancomycin for possible pneumonia. BC x 2 are no growth. MRSA nasal swab is positive. Pulmonology is consulted to follow patient. Vancomycin: * Trough level this am was therapeutic at ~17 mcg/ml (goal 15-20 mcg/ml for PNA) ; however, expect true trough to be slightly lower since previous dose given late. * Will continue with current regimen for now and recheck in about 2-3 days if vancomycin is to be continued * Per Pulmonology notes, pt may benefit from thoracentesis of right sided pleural effusion however difficult to obtain at this time due to patient agitation Pharmacy will continue to follow and will adjust dose/frequency as necessary. Thank you
--- NOTE | 2017-07-08 10:30 | Pulmonology Progress Note ---
Pulmonary Progress Note Date of Service Jul 08, 2017. Attending Dr. Oliver Subjective Patient is slightly improved overall this morning. He is alert but still slightly groggy. He is no longer agitated this morning. He does answer questions appropriately this morning, but his ROS is still of quesitonable reliability due to confusion. Labs reviewed: ABG yesterday evening: pH 7.43 pCO2 61 pO2 54 HCO3 39 O2 saturation 86.3 on 2 L WBC 6.68 Hgb 13.7 Creatinine 0.79 BUN 14 Bicarb serum 38 Meds reviewed: SoluMedrol 20 mg Q8h Xopenex, Atrovent Vancomycin Doxycycline Unasyn ROS unreliable. Objective VS reviewed: HR 87 RR 18 BP 151/82 SaO2 95% on 2 L nasal cannula General: Patient is much more alert today. He does make some brief conversation that is understandable but still of questionable reliability. Head: Normocephalic, Atraumatic. ENT: No discharge or erythema of the eyes. Neck: No stridor. Trachea midline. Respiratory: Rhonchi noted in the upper lobes. Decreased breath sounds b/l bases. Thoracic U/S performed during exam- note fluid at the right lung base but also what appears to be tacked up lung versus loculated effusion Cardiovascular: Regular rate and rhythm. Abdomen: Normal bowel sounds hear throughout. Abdomen is soft. Extremities: Trace edema of B/L LE. Neuro: Slight confusion. Speaks more clearly today during exam. Answers questions with brief answers. Assessment & Plan Acute on chronic hypoxic hypercapnic respiratory failure. Possible pneumonia. Right pleural effusion Severe Parkinson's disease. Patient appears to be slightly improved today. Agitation has overall subsided. Patient continues in 09-12. Blood gas was improved. Thoracic U/S showed fluid on exam, but also may have tacked lung. Will discuss with Dr. Oliver for possible thoracentesis. Continue with supplemental O2 to keep patient between 88-92% SaO2 ideally. Add BiPAP PRN for worsening symptoms. Continue current antibiotic therapy pending further improvement. Consider CTA of the chest today or tomorrow to further evaluate patient's chest. Continue to be judicious regarding sedatives and narcotics due to concern for respiratory depression from these medications. Data Medications: Current Inpatient Medications Medications (Trade) Dose Ordered Sig/Luz Route Start Time Stop Time Status Last Admin Dose Admin Ondansetron HCl (Zofran Inj) 4 mg Q8 IV 10/24/17 14:00 08/04/17 13:59 07/08/17 05:54 4 MG Enoxaparin Sodium (Lovenox Inj) 40 mg Q24H SC 07/05/17 21:00 08/04/17 13:59 07/07/17 21:32 40 MG Ampicillin Sodium/ Sulbactam Sodium 3000 mg/Sodium Chloride 108 ml @ 200 mls/hr Q6H IV 07/05/17 16:00 07/12/17 15:59 07/08/17 04:22 200 MLS/HR Morphine Sulfate (MoRPHine SULFATE INJ) 2 mg Q2H PRN IV 07/06/17 10:30 07/20/17 10:29 07/07/17 06:41 2 MG Vancomycin HCl 1250 mg/Sodium Chloride 275 ml @ 125 mls/hr Q10H IV 07/06/17 20:00 07/13/17 19:59 07/08/17 04:22 125 MLS/HR Doxycycline Hyclate 100 mg/ Dextrose 110 ml @ 50 mls/hr Q12H IV 07/06/17 12:00 07/13/17 11:59 07/08/17 00:10 50 MLS/HR Famotidine 20 mg/ Syringe 5 ml @ 2.5 mls/min Q12 IV 07/06/17 21:00 08/05/17 20:59 07/08/17 08:02 2.5 MLS/MIN Vancomycin HCl (Consult) 1 ea UD PRN N/A 07/06/17 11:00 08/05/17 10:59 Ipratropium [place] (Atrovent 0.02% 0.5MG/2.5ML Neb) 0.5 mg QIDR INH 07/06/17 16:00 08/05/17 15:59 07/08/17 07:19 0.5 MG Levalbuterol (Xopenex 1.25MG/ 0.5ML Neb) 1.25 mg QIDR INH 07/06/17 12:00 08/05/17 11:59 07/08/17 07:19 1.25 MG Levalbuterol (Xopenex 0.63 Mg/ 3 Ml Neb) 0.63 mg Q2H PRN INH 07/06/17 11:30 08/05/17 11:29 Dextrose/Sodium Chloride 1,000 ml @ 100 mls/hr Q10H IV 07/06/17 21:15 08/05/17 21:14 07/08/17 07:30 100 MLS/HR Insulin Aspart (novoLOG ASPART) SLIDING SCALE G... ACHS SC 07/07/17 07:00 08/06/17 06:59 Olanzapine (Zyprexa Zydis Od Tab) 5 mg Q12H PRN PO 07/07/17 10:00 08/06/17 09:59 Haloperidol Lactate (Haldol Inj) 0.5 mg Q1H PRN IV 07/07/17 13:00 08/06/17 12:59 Methylprednisolone Sodium Succinate 20 mg/Syringe 0.32 ml @ 1.5 mls/min Q8 IV 07/08/17 06:00 08/07/17 05:59 07/08/17 05:54 1.5 MLS/MIN Hydralazine HCl (HydrALAZINE INJ) 10 mg Q6H PRN IV. 07/08/17 05:00 08/07/17 04:59 07/08/17 05:26 10 MG Carbidopa/Levodopa (Sinemet 25/ 100MG Tab) 1.5 tab DAILY@0600,1000,1400,1800,2200 PO 07/08/17 10:00 08/07/17 09:59 07/08/17 07:32 1.5 TAB Carbidopa/Levodopa (Sinemet Cr 25/ 100MG Tab) 1 tab HS PO 07/08/17 21:00 08/07/17 20:59 Clonazepam (Klonopin Tab) 1 mg HS PO 07/08/17 21:00 08/07/17 20:59 Metoprolol Tartrate (Lopressor Tab) 25 mg BID PO 07/08/17 09:00 08/07/17 08:59 07/08/17 07:30 25 MG Ropinirole HCl (Requip Tab) 4 mg QID PO 07/08/17 09:00 08/07/17 08:59 07/08/17 07:35 4 MG Tamsulosin HCl (Flomax Cap) 0.4 mg HS PO 07/08/17 21:00 08/07/17 20:59 Pantoprazole Sodium (Protonix Tab) 40 mg QAM PO 07/08/17 09:00 08/07/17 08:59 07/08/17 07:34 40 MG Tamsulosin HCl (Flomax Cap) 0.4 mg 0900 PO 07/08/17 09:00 07/08/17 10:00 07/08/17 07:34 0.4 MG Vital Signs: Date Time Temp Pulse Resp B/P (MAP) Pulse Ox O2 Delivery O2 Flow Rate FiO2 07/08/17 08:00 95 Room Air 2.0 07/08/17 07:19 87 18 95 Mask 2.0 07/08/17 07:02 36.4 88 20 151/82 (105) 94 Mechanical Ventilator 2.0 07/08/17 06:03 174/74 (107) 07/08/17 04:47 181/116 (137) 07/08/17 04:30 36.5 76 18 195/125 (148) 95 07/08/17 04:00 Nasal Cannula 1.0 07/07/17 23:59 Nasal Cannula 1.0 07/07/17 23:27 36.4 83 18 159/91 (113) 94 07/07/17 20:00 Nasal Cannula 1.0 07/07/17 19:33 95 22 89 Nasal Cannula 2.0 07/07/17 17:15 36.5 85 20 167/86 (113) 90 BiPAP 07/07/17 16:00 91 Nasal Cannula 1.0 07/07/17 15:19 86 22 91 Nasal Cannula 1.0 07/07/17 12:00 Nasal Cannula 1.0 07/07/17 11:26 36.8 88 18 149/68 (95) 92 07/07/17 11:02 90 24 92 Nasal Cannula 1.0 Laboratory Results: Last 24 Hours Test 07/07/17 11:43 07/07/17 16:29 07/07/17 17:55 07/07/17 20:08 Bedside Glucose 138 mg/dl 129 mg/dl 131 mg/dl Arterial Blood pH 7.43 Arterial Blood Partial Pressure CO2 61 mmHg Arterial Blood Partial Pressure O2 54 mm/Hg Arterial Blood HCO3 39 mmol/L Arterial Blood Oxygen Saturation 86.3 % Arterial Blood Base Excess 12.5 mEq/L Arterial Blood Gas Delivery 2 L Luigi Test POS Test 07/08/17 03:22 07/08/17 06:07 07/08/17 06:22 07/08/17 07:18 White Blood Count 6.68 K/uL Red Blood Count 4.89 M/uL Hemoglobin 13.7 g/dL Hematocrit 43.5 % Mean Corpuscular Volume 89.0 fL Mean Corpuscular Hemoglobin 28.0 pg Mean Corpuscular Hemoglobin Concent 31.5 g/dl RDW Standard Deviation 58.4 fL RDW Coefficient of Variation 17.7 % Platelet Count 189 K/uL Mean Platelet Volume 9.5 fL Creatinine 0.72 mg/dl 0.79 mg/dl Est Creatinine Clear Calc Drug Dose 113.4 ml/min 103.4 ml/min Estimated GFR () 113.5 109.2 Estimated GFR (Non- 97.9 94.2 Vancomycin Level Trough 16.8 mcg/ml Sodium Level 141 mmol/L Potassium Level mmol/L 4.0 mmol/L Chloride Level 99 mmol/L Carbon Dioxide Level 38 mmol/L Anion Gap 4.0 mmol/L Blood Urea Nitrogen 14 mg/dl BUN/Creatinine Ratio 18.0 Random Glucose 116 mg/dl Calcium Level 8.6 mg/dl Bedside Glucose 106 mg/dl
--- NOTE | 2017-07-08 12:20 | Procedure Note ---
Procedure Note Date of Service Jul 08, 2017. Procedure Note Procedures: Right sided Thoracentesis Consent: obtained via the patient and placed into the chart Pre-Procedural Dx: Right pleural effusion Post-Procedural Dx: Right sided loculated Analgesia: 8cc of 1% Liquid Lidocaine Procedure: The patient was placed in an upright position and thoracic US was used to select a spot for the procedure. A spot along the posterior axillary line was marked in the 7th intercostal space. The patient was then draped and prepped in a sterile fashion. A modified Seldinger technique was then used for catheter placement. Flowing this approximately 2cc straw colored pleural fluid was removed. The patient was then cleaned and placed at a 60 degree angle in the bed were the US was used to evaluate for possible pneumothorax. The US showed good lung sliding and starry night sign. EBL: < 5 cc Complications: none
--- NOTE | 2017-07-08 12:52 | DIAGNOSTIC IMAGING REPORT ---
CHEST ONE VIEW PORTABLE HISTORY: 67 years-old Male S/P Right Thoracentesis status post right thoracentesis with respiratory failure and pleural effusion COMPARISON: Chest radiograph 07/06/2017 TECHNIQUE: Portable upright AP view of the chest FINDINGS: Cardiac silhouette is mildly enlarged. Pulmonary vascular congestion. Left-sided battery pack with electrodes extending superiorly towards the head suggest a neurostimulator. There is decreased size of right pleural effusion. Small bilateral pleural effusions persist with hazy subsegmental bibasilar opacities suggesting atelectasis. No pneumothorax status post procedural. Reverse right shoulder arthroplasty noted. Degenerative changes of the spine and left shoulder noted. IMPRESSION: Decreased size of right pleural effusion status post thoracentesis without postprocedural pneumothorax. The above report was generated using voice recognition software. It may contain grammatical, syntax or spelling errors. Electronically signed by: Marek Malhotra M.D. 07/08/2017 12:51 PM Dictated Date/Time: 07/08/2017 12:49 PM
[2017-07-08] MEDS ORDERED: CLONAZEPAM 1 MG TAB PO SCH (21:00)
[2017-07-08] MEDS ORDERED: CARBIDOPA/LEVODOPA 25/100MG EXT REL TAB PO SCH (21:00)
[2017-07-08] MEDS: DOXYCYCLINE HYCLATE 100 MG CAP PO SCH (21:39)
[2017-07-08] MEDS: ENOXAPARIN 40 MG/0.4 ML SYR SC SCH (21:40)
[2017-07-08] MEDS: TAMSULOSIN HCL 0.4 MG CAP PO SCH (22:01)
--- NOTE | 2017-07-08 22:20 | Progress Note ---
Medicine Progress Note Date & Time of Visit: Jul 08, 2017 at 15:50 . Subjective More alert this morning. Delirium improved. No fever. Occasional cough. No chest pain. No nausea, vomiting, diarrhea. Oliver cath removed. . Objective Last 8 Hrs Date Time Temp Pulse Resp B/P (MAP) Pulse Ox O2 Delivery O2 Flow Rate FiO2 07/08/17 19:33 95 20 88 Nasal Cannula 3.0 07/08/17 19:18 37.0 100 22 142/78 (99) 86 Nasal Cannula 1.0 07/08/17 16:00 90 07/08/17 15:52 90 18 90 Room Air 07/08/17 15:35 36.8 88 22 115/65 (82) 85 Room Air Physical Exam: General- no distress Eyes- anicteric Neck- + JVD Lungs- diffuse mild wheezing; decreased breath sounds right base Heart- RRR Abdomen- + BS, soft, nontender Extremities- trace pretibial edema; no calf tenderness Neuro- alert, cooperative, follows commands . Laboratory Results: Last 24 Hours Test 07/08/17 03:22 07/08/17 06:07 07/08/17 06:22 07/08/17 07:18 White Blood Count 6.68 K/uL Red Blood Count 4.89 M/uL Hemoglobin 13.7 g/dL Hematocrit 43.5 % Mean Corpuscular Volume 89.0 fL Mean Corpuscular Hemoglobin 28.0 pg Mean Corpuscular Hemoglobin Concent 31.5 g/dl RDW Standard Deviation 58.4 fL RDW Coefficient of Variation 17.7 % Platelet Count 189 K/uL Mean Platelet Volume 9.5 fL Creatinine 0.72 mg/dl 0.79 mg/dl Est Creatinine Clear Calc Drug Dose 113.4 ml/min 103.4 ml/min Estimated GFR () 113.5 109.2 Estimated GFR (Non- 97.9 94.2 Vancomycin Level Trough 16.8 mcg/ml Sodium Level 141 mmol/L Potassium Level mmol/L 4.0 mmol/L Chloride Level 99 mmol/L Carbon Dioxide Level 38 mmol/L Anion Gap 4.0 mmol/L Blood Urea Nitrogen 14 mg/dl BUN/Creatinine Ratio 18.0 Random Glucose 116 mg/dl Calcium Level 8.6 mg/dl Bedside Glucose 106 mg/dl Test 07/08/17 11:03 07/08/17 16:29 07/08/17 20:16 Bedside Glucose 141 mg/dl 111 mg/dl 126 mg/dl Assessment & Plan ACUTE HYPOXIC AND HYPERCAPNIC RESPIRATORY FAILURE Oxygen saturation 66% at home prior to admission. ABG demonstrated PCO2 as high as 114. Pulmonary Medicine consulted. BiPAP used intermittently for ventilatory support. Spouse reinforced that patient does not wish to be intubated again under any circumstances. Suspected underlying aspiration pneumonia. Received IV methylprednisolone and ipratropium/levalbuterol nebs with improvement. Taper steroids as able. Continue BiPAP as tolerated, titrate supplemental oxygen to maintain sats in the high 80s - low 90s. PNEUMONIA Suspected aspiration pneumonia. At risk for MRSA pneumonia due to + MRSA screen. Must also cover atypical organisms. Best to avoid fluoroquinolones due to delirium. Received IV vancomycin. Blood cultures negative. DC vancomycin. Continue ampicillin/sulbactam, doxycycline. RIGHT PLEURAL EFFUSION Right pleural effusion noted on chest x-ray. Management per Primary Medicine. ELEVATED SERUM TROPONIN Likely nonspecific elevation secondary to pneumonia/respiratory failure. Doubt acute coronary syndrome. ENCEPHALOPATHY / DELIRIUM Probably secondary to infection/hypercapnia. IV haloperidol PRN with caution. Management of specific underlying problems as outlined above. PARKINSON'S DISEASE Advanced Parkinson's disease. Was NPO due to delirium and high aspiration risk, now more alert. Resume usual medications. 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 VTE PROPHYLAXIS SQ enoxaparin. RESUSCITATION STATUS "Level 5" (DNR) as documented 08/06/17. DISPOSITION Anticipated need for skilled care or inpatient rehab. PT / OT evals. Family Medicine follow-up with Dr. Miguel Angel Curran. . Current Inpatient Medications: Current Inpatient Medications Medications (Trade) Dose Ordered Sig/Luz Route Start Time Stop Time Status Last Admin Dose Admin Ondansetron HCl (Zofran Inj) 4 mg Q8 IV 07/05/17 14:00 08/04/17 13:59 07/08/17 22:05 4 MG Enoxaparin Sodium (Lovenox Inj) 40 mg Q24H SC 07/05/17 21:00 08/04/17 13:59 07/08/17 21:40 40 MG Ampicillin Sodium/ Sulbactam Sodium 3000 mg/Sodium Chloride 108 ml @ 200 mls/hr Q6H IV 07/05/17 16:00 07/12/17 15:59 07/08/17 21:43 200 MLS/HR Morphine Sulfate (MoRPHine SULFATE INJ) 2 mg Q2H PRN IV 07/06/17 10:30 07/20/17 10:29 07/07/17 06:41 2 MG Famotidine 20 mg/ Syringe 5 ml @ 2.5 mls/min Q12 IV 07/06/17 21:00 08/05/17 20:59 07/08/17 21:39 2.5 MLS/MIN Ipratropium [place] (Atrovent 0.02% 0.5MG/2.5ML Neb) 0.5 mg QIDR INH 07/06/17 16:00 08/05/17 15:59 07/08/17 19:33 0.5 MG Levalbuterol (Xopenex 1.25MG/ 0.5ML Neb) 1.25 mg QIDR INH 07/06/17 12:00 08/05/17 11:59 07/08/17 19:33 1.25 MG Levalbuterol (Xopenex 0.63 Mg/ 3 Ml Neb) 0.63 mg Q2H PRN INH 07/06/17 11:30 08/05/17 11:29 Insulin Aspart (novoLOG ASPART) SLIDING SCALE G... ACHS SC 07/07/17 07:00 08/06/17 06:59 Olanzapine (Zyprexa Zydis Od Tab) 5 mg Q12H PRN PO 07/07/17 10:00 08/06/17 09:59 Haloperidol Lactate (Haldol Inj) 0.5 mg Q1H PRN IV 07/07/17 13:00 08/06/17 12:59 Hydralazine HCl (HydrALAZINE INJ) 10 mg Q6H PRN IV. 07/08/17 05:00 08/07/17 04:59 07/08/17 05:26 10 MG Metoprolol Tartrate (Lopressor Tab) 25 mg BID PO 07/08/17 09:00 08/07/17 08:59 07/08/17 21:40 25 MG Tamsulosin HCl (Flomax Cap) 0.4 mg HS PO 07/08/17 21:00 08/07/17 20:59 07/08/17 22:01 0.4 MG Pantoprazole Sodium (Protonix Tab) 40 mg QAM PO 07/08/17 09:00 08/07/17 08:59 07/08/17 07:34 40 MG Doxycycline Hyclate (Vibramycin Cap) 100 mg BID PO 07/08/17 21:00 07/13/17 20:59 07/08/17 21:39 100 MG Non-Formulary Medication (ropinirole ER) 12 mg HS PO 07/09/17 22:00 08/08/17 21:59 UNV Ropinirole HCl (Requip Tab) 4 mg Q4@0600,1000,1400,1800 PO 07/09/17 06:00 08/08/17 05:59 UNV Carbidopa/Levodopa (Sinemet 25/ 100MG Tab) 1.5 tab DAILY@0600,0900,1200,1500,1800 PO 07/09/17 06:00 08/08/17 05:59 UNV Clonazepam (Klonopin Tab) 1 mg DAILY@2200 PO 07/09/17 22:00 08/08/17 21:59 UNV
[2017-07-09] VITALS (15 sets, daily range): BP systolic 109–179; BP diastolic 61–100; PULSE 64–89; TEMP 36.4–37.1; O2SAT 88–95
[2017-07-09] MEDS: AMPICILLIN/SULBACTAM SOD INJ 3,000 MG in SODIUM CHLORIDE 0.9% 100ML 100 ML IV SCH ×4 (03:39→21:28)
[2017-07-09] MEDS: ROPINIROLE HCL 1 MG TAB PO SCH ×4 (05:06→18:20)
[2017-07-09] MEDS: CARBIDOPA/LEVODOPA 25/100MG TAB PO SCH ×5 (05:07→18:21)
[2017-07-09] MEDS: ONDANSETRON INJ 2 MG/ML 2 ML VIAL IV SCH (05:09)
[2017-07-09] MEDS: LEVALBUTEROL 1.25MG/0.5ML NEB INH SCH ×4 (07:00→19:20)
[2017-07-09] MEDS: IPRATROPIUM BROMIDE NEB SOLN 0.02% 2.5 ML VIAL INH SCH ×4 (07:00→19:20)
--- NOTE | 2017-07-09 07:17 | DIAGNOSTIC IMAGING REPORT ---
CHEST ONE VIEW PORTABLE CLINICAL HISTORY: resp failure dyspnea COMPARISON STUDY: 07/08/2017 FINDINGS: Minimal prominence of the cardiac silhouette. Small left effusion improved from the prior study. Mild improvement in aeration right base with improved visibility right hemidiaphragm. Postoperative changes as had been noted previously. IMPRESSION: Mildly improved exam with improved aeration right base. Small persistent left basilar increase in density. No significant pneumothorax. The above report was generated using voice recognition software. It may contain grammatical, syntax or spelling errors. Electronically signed by: Yobany Hernandez M.D. 07/09/2017 7:16 AM Dictated Date/Time: 07/09/2017 7:15 AM
[2017-07-09 08:21] LABS: BUN/CREATININE RATIO 21.8 (10-20); CALCIUM 8.6 mg/dl (8.5-10.1); CREATININE 0.88 mg/dl (0.60-1.40); POTASSIUM 3.9 mmol/L (3.5-5.1)
[2017-07-09] MEDS: METOPROLOL TARTRATE 25 MG TAB PO SCH ×2 (08:27→20:35)
[2017-07-09] MEDS: PANTOprazole SOD 40 MG TAB PO SCH (08:27)
[2017-07-09] MEDS: FAMOTIDINE IV INJ 20 MG in SYRINGE 3 ML IV SCH (08:27)
[2017-07-09] MEDS: DOXYCYCLINE HYCLATE 100 MG CAP PO SCH ×2 (09:25→20:35)
--- NOTE | 2017-07-09 14:26 | Pulmonology Progress Note ---
Pulmonary Progress Note Date of Service Jul 09, 2017. Attending Dr. Oliver Subjective Patient seen and examined this morning. He states that he is doing well. He is eating lunch and has no complaints. Currently on room air and speaking in full sentences. Objective VS reviewed: Tm 37, P 120/61-166/88, P 89/69, RR 18-25, SaO2 88-95% on RA to 1.5 L General: Patient is awake and alert today. Head: Normocephalic, Atraumatic. ENT: No discharge or erythema of the eyes. Neck: No stridor. Trachea midline. Respiratory: Rhonchi noted in the upper lobes. Decreased breath sounds b/l bases. Cardiovascular: Regular rate and rhythm. Abdomen: Normal bowel sounds hear throughout. Abdomen is soft. Extremities: Trace edema of B/L LE. Neuro: He is orientated today. Assessment & Plan Acute on chronic hypoxic hypercapnic respiratory failure. Possible pneumonia. Right pleural effusion Severe Parkinson's disease. Mr. Lynn has made a remarkable improvement since his admission, especially from a respiratory standpoint. His blood gas has improved and hypercapnic encephalopathy has resolved. Attempted bedside thoracentesis, but showed fluid appears to be somewhat loculated. Nonetheless, appears to decreasing. At the current, time I feel that he is doing well. I would continue with current management per primary team. I will sign off of his case today. Please contact me if you have any further questions or concerns. Data Medications: Current Inpatient Medications Medications (Trade) Dose Ordered Sig/Luz Route Start Time Stop Time Status Last Admin Dose Admin Enoxaparin Sodium (Lovenox Inj) 40 mg Q24H SC 07/05/17 21:00 08/04/17 13:59 07/08/17 21:40 40 MG Ampicillin Sodium/ Sulbactam Sodium 3000 mg/Sodium Chloride 108 ml @ 200 mls/hr Q6H IV 07/05/17 16:00 07/12/17 15:59 07/09/17 09:27 200 MLS/HR Morphine Sulfate (MoRPHine SULFATE INJ) 2 mg Q2H PRN IV 07/06/17 10:30 07/20/17 10:29 07/07/17 06:41 2 MG Famotidine 20 mg/ Syringe 5 ml @ 2.5 mls/min Q12 IV 07/06/17 21:00 08/05/17 20:59 07/09/17 08:27 2.5 MLS/MIN Ipratropium [place] (Atrovent 0.02% 0.5MG/2.5ML Neb) 0.5 mg QIDR INH 07/06/17 16:00 08/05/17 15:59 07/09/17 11:28 0.5 MG Levalbuterol (Xopenex 1.25MG/ 0.5ML Neb) 1.25 mg QIDR INH 07/06/17 12:00 08/05/17 11:59 07/09/17 11:28 1.25 MG Levalbuterol (Xopenex 0.63 Mg/ 3 Ml Neb) 0.63 mg Q2H PRN INH 07/06/17 11:30 08/05/17 11:29 Olanzapine (Zyprexa Zydis Od Tab) 5 mg Q12H PRN PO 07/07/17 10:00 08/06/17 09:59 Haloperidol Lactate (Haldol Inj) 0.5 mg Q1H PRN IV 07/07/17 13:00 08/06/17 12:59 07/09/17 01:11 0.5 MG Hydralazine HCl (HydrALAZINE INJ) 10 mg Q6H PRN IV. 07/08/17 05:00 08/07/17 04:59 07/08/17 05:26 10 MG Metoprolol Tartrate (Lopressor Tab) 25 mg BID PO 07/08/17 09:00 08/07/17 08:59 07/09/17 08:27 25 MG Tamsulosin HCl (Flomax Cap) 0.4 mg HS PO 07/08/17 21:00 08/07/17 20:59 07/08/17 22:01 0.4 MG Pantoprazole Sodium (Protonix Tab) 40 mg QAM PO 07/08/17 09:00 08/07/17 08:59 07/09/17 08:27 40 MG Doxycycline Hyclate (Vibramycin Cap) 100 mg BID PO 07/08/17 21:00 07/13/17 20:59 07/09/17 09:25 100 MG Ropinirole HCl (Requip Tab) 4 mg Q4@0600,1000,1400,1800 PO 07/09/17 06:00 08/08/17 05:59 07/09/17 09:26 4 MG Carbidopa/Levodopa (Sinemet 25/ 100MG Tab) 1.5 tab DAILY@0600,0900,1200,1500,1800 PO 07/09/17 06:00 08/08/17 05:59 07/09/17 12:27 1.5 TAB Clonazepam (Klonopin Tab) 1 mg DAILY@2200 PO 07/09/17 22:00 08/08/17 21:59 Prednisone (PredniSONE TAB) 40 mg DAILY PO 07/09/17 09:00 08/08/17 08:59 07/09/17 08:27 40 MG Ropinirole HCl (Ropinirole Er) 12 mg HS PO 07/09/17 21:00 08/08/17 20:59 UNV I & O: 24-Hour Column 07/10/17 08:00 Intake Total 320 ml Output Total 550 ml Balance -230 ml Vital Signs: Date Time Temp Pulse Resp B/P (MAP) Pulse Ox O2 Delivery O2 Flow Rate FiO2 07/09/17 12:00 Room Air 07/09/17 11:28 89 18 95 Nasal Cannula 1.5 07/09/17 11:25 37.0 77 20 120/61 (80) 91 07/09/17 08:00 36.8 76 20 129/76 (93) 91 Nasal Cannula 1.5 07/09/17 08:00 Nasal Cannula 1.5 07/09/17 07:04 87 20 88 Room Air 07/09/17 04:00 91 Nasal Cannula 1.5 07/09/17 03:45 36.9 69 25 166/88 (114) 92 Nasal Cannula 1.5 07/09/17 00:00 91 Nasal Cannula 1.5 07/08/17 22:56 37.1 70 28 128/78 (95) 91 Nasal Cannula 1.5 07/08/17 20:00 85 Nasal Cannula 1.0 07/08/17 19:33 95 20 88 Nasal Cannula 3.0 07/08/17 19:18 37.0 100 22 142/78 (99) 86 Nasal Cannula 1.0 07/08/17 16:00 90 07/08/17 15:52 90 18 90 Room Air 07/08/17 15:35 36.8 88 22 115/65 (82) 85 Room Air Laboratory Results: Last 24 Hours Test 07/08/17 16:29 07/08/17 20:16 07/09/17 05:45 07/09/17 07:40 Bedside Glucose 111 mg/dl 126 mg/dl 126 mg/dl Sodium Level 142 mmol/L Potassium Level 3.9 mmol/L Chloride Level 102 mmol/L Carbon Dioxide Level 37 mmol/L Anion Gap 4.0 mmol/L Blood Urea Nitrogen 19 mg/dl Creatinine 0.88 mg/dl Est Creatinine Clear Calc Drug Dose 93.0 ml/min Estimated GFR () 104.5 Estimated GFR (Non- 90.1 BUN/Creatinine Ratio 21.8 Random Glucose 112 mg/dl Calcium Level 8.6 mg/dl Test 07/09/17 11:11 Bedside Glucose 101 mg/dl
[2017-07-09] MEDS: HydrALAZINE HCL 20 MG/ML VIAL IV. PRN (15:32)
[2017-07-09] MEDS: ROPINIROLE HYDROCHLORIDE PO SCH (20:35)
[2017-07-09] MEDS: ENOXAPARIN 40 MG/0.4 ML SYR SC SCH (20:35)
[2017-07-09] MEDS: TAMSULOSIN HCL 0.4 MG CAP PO SCH (20:35)
[2017-07-09] MEDS: FAMOTIDINE 20 MG TAB PO SCH (20:35)
[2017-07-09] MEDS: CLONAZEPAM 1 MG TAB PO SCH (21:28)
[2017-07-09] MEDS ORDERED: ROPINIROLE 12 MG PO SCH (22:00)
--- NOTE | 2017-07-09 22:05 | Progress Note ---
Medicine Progress Note Date & Time of Visit: Jul 09, 2017 at 18:30 . Subjective Confused during the night, better today. Generally improved. No fever. Occasional cough. Denies SOB. No chest pain. No nausea, vomiting, diarrhea. Voiding without difficulty. . Objective Vital Signs Label Value Date Time Patient Temperature 36.8 C. 07/09/17799 Temperature Source Oral 07/09/17799 Pulse 76 07/09/17799 Location Finger Blood Pressure Assessment 129/76 (93) 07/09/17799 Location Right Arm Source NIBP Position Supine Bedside Pulse Oximetry 91 % 07/09/17799 Item Value Date Time Oxygen Delivery Method Nasal Cannula 07/09/17799 Oxygen Flow Rate 1.5 L/min 07/09/17799 Physical Exam: General- no distress Eyes- anicteric Neck- + JVD Lungs- diffuse mild wheezing; decreased breath sounds right base; needs encouragement to take deep inspiration Heart- RRR Abdomen- + BS, soft, nontender Extremities- trace pretibial edema; no calf tenderness Neuro- alert . Laboratory Results: Last 24 Hours Test 07/09/17 05:45 07/09/17 07:40 07/09/17 11:11 07/09/17 16:05 Bedside Glucose 126 mg/dl 101 mg/dl 109 mg/dl Sodium Level 142 mmol/L Potassium Level 3.9 mmol/L Chloride Level 102 mmol/L Carbon Dioxide Level 37 mmol/L Anion Gap 4.0 mmol/L Blood Urea Nitrogen 19 mg/dl Creatinine 0.88 mg/dl Est Creatinine Clear Calc Drug Dose 93.0 ml/min Estimated GFR () 104.5 Estimated GFR (Non- 90.1 BUN/Creatinine Ratio 21.8 Random Glucose 112 mg/dl Calcium Level 8.6 mg/dl Test 07/09/17 20:05 Assessment & Plan ACUTE HYPOXIC AND HYPERCAPNIC RESPIRATORY FAILURE Oxygen saturation 66% at home prior to admission. ABG demonstrated PCO2 as high as 114. Pulmonary Medicine consulted. BiPAP used intermittently for ventilatory support. Spouse reinforced that patient does not wish to be intubated again under any circumstances. Suspected underlying aspiration pneumonia. Received IV methylprednisolone and ipratropium/levalbuterol nebs with improvement. Taper steroids as able. PNEUMONIA Suspected aspiration pneumonia. At risk for MRSA pneumonia due to + MRSA screen. Must also cover atypical organisms. Best to avoid fluoroquinolones due to delirium. Received IV vancomycin. Blood cultures negative. Stopped vancomycin. Continue ampicillin/sulbactam, doxycycline. RIGHT PLEURAL EFFUSION Right pleural effusion noted on chest x-ray. Pulmonary Medicine attempted thoracentesis, but effusion loculated and minimal fluid was aspirated. ELEVATED SERUM TROPONIN Likely nonspecific elevation secondary to pneumonia/respiratory failure. Doubt acute coronary syndrome. ENCEPHALOPATHY / DELIRIUM Probably secondary to infection/hypercapnia. IV haloperidol PRN with caution. Management of specific underlying problems as outlined above. Improved. PARKINSON'S DISEASE Advanced Parkinson's disease. Was NPO due to delirium and high aspiration risk and meds had to be held. Now back on usual regimen. 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 VTE PROPHYLAXIS SQ enoxaparin. RESUSCITATION STATUS "Level 5" (DNR) as documented 08/06/17. DISPOSITION Anticipated need for skilled care or inpatient rehab. He has been at [facility] previously which is close to his home. Case Management consulted. PT / OT evals. Family Medicine follow-up with Dr. Miguel Angel Curran. . Current Inpatient Medications: Current Inpatient Medications Medications (Trade) Dose Ordered Sig/Luz Route Start Time Stop Time Status Last Admin Dose Admin Enoxaparin Sodium (Lovenox Inj) 40 mg Q24H SC 07/05/17 21:00 08/04/17 13:59 07/09/17 20:35 40 MG Ampicillin Sodium/ Sulbactam Sodium 3000 mg/Sodium Chloride 108 ml @ 200 mls/hr Q6H IV 07/05/17 16:00 07/12/17 15:59 07/09/17 21:28 200 MLS/HR Morphine Sulfate (MoRPHine SULFATE INJ) 2 mg Q2H PRN IV 07/06/17 10:30 07/20/17 10:29 07/07/17 06:41 2 MG Ipratropium [place] (Atrovent 0.02% 0.5MG/2.5ML Neb) 0.5 mg QIDR INH 07/06/17 16:00 08/05/17 15:59 07/09/17 19:20 0.5 MG Levalbuterol (Xopenex 1.25MG/ 0.5ML Neb) 1.25 mg QIDR INH 07/06/17 12:00 08/05/17 11:59 07/09/17 19:20 1.25 MG Levalbuterol (Xopenex 0.63 Mg/ 3 Ml Neb) 0.63 mg Q2H PRN INH 07/06/17 11:30 08/05/17 11:29 Olanzapine (Zyprexa Zydis Od Tab) 5 mg Q12H PRN PO 07/07/17 10:00 08/06/17 09:59 Haloperidol Lactate (Haldol Inj) 0.5 mg Q1H PRN IV 07/07/17 13:00 08/06/17 12:59 07/09/17 01:11 0.5 MG Hydralazine HCl (HydrALAZINE INJ) 10 mg Q6H PRN IV. 07/08/17 05:00 08/07/17 04:59 07/09/17 15:32 10 MG Metoprolol Tartrate (Lopressor Tab) 25 mg BID PO 07/08/17 09:00 08/07/17 08:59 07/09/17 20:35 25 MG Tamsulosin HCl (Flomax Cap) 0.4 mg HS PO 07/08/17 21:00 08/07/17 20:59 07/09/17 20:35 0.4 MG Pantoprazole Sodium (Protonix Tab) 40 mg QAM PO 07/08/17 09:00 08/07/17 08:59 07/09/17 08:27 40 MG Doxycycline Hyclate (Vibramycin Cap) 100 mg BID PO 07/08/17 21:00 07/13/17 20:59 07/09/17 20:35 100 MG Ropinirole HCl (Requip Tab) 4 mg Q4@0600,1000,1400,1800 PO 07/09/17 06:00 08/08/17 05:59 07/09/17 18:20 4 MG Carbidopa/Levodopa (Sinemet 25/ 100MG Tab) 1.5 tab DAILY@0600,0900,1200,1500,1800 PO 07/09/17 06:00 08/08/17 05:59 07/09/17 18:21 1.5 TAB Clonazepam (Klonopin Tab) 1 mg DAILY@2200 PO 07/09/17 22:00 08/08/17 21:59 07/09/17 21:28 1 MG Prednisone (PredniSONE TAB) 40 mg DAILY PO 07/09/17 09:00 08/08/17 08:59 07/09/17 08:27 40 MG Ropinirole HCl (Ropinirole Er) 12 mg HS PO 07/09/17 21:00 08/08/17 20:59 07/09/17 20:35 12 MG Famotidine (Pepcid Tab) 20 mg BID PO 07/09/17 21:00 08/08/17 20:59 07/09/17 20:35 20 MG
[2017-07-10] VITALS (17 sets, daily range): BP systolic 145–177; BP diastolic 72–103; PULSE 67–88; TEMP 36.7–37.1; O2SAT 88–92
[2017-07-10] MEDS: AMPICILLIN/SULBACTAM SOD INJ 3,000 MG in SODIUM CHLORIDE 0.9% 100ML 100 ML IV SCH ×4 (04:32→21:33)
[2017-07-10] MEDS: HydrALAZINE HCL 20 MG/ML VIAL IV. PRN ×2 (05:01→16:55)
[2017-07-10] MEDS: ROPINIROLE HCL 1 MG TAB PO SCH ×4 (05:36→17:59)
[2017-07-10] MEDS: CARBIDOPA/LEVODOPA 25/100MG TAB PO SCH ×5 (05:37→17:58)
[2017-07-10 06:49] LABS: BLOOD UREA NITROGEN 19 mg/dl (7-18); BUN/CREATININE RATIO 21.3 (10-20); CALCIUM 8.4 mg/dl (8.5-10.1); CARBON DIOXIDE 35 mmol/L (21-32); CHLORIDE 102 mmol/L (98-107); CREATININE 0.89 mg/dl (0.60-1.40); GLUCOSE 80 mg/dl (70-99); SODIUM 142 mmol/L (136-145)
[2017-07-10] MEDS: IPRATROPIUM BROMIDE NEB SOLN 0.02% 2.5 ML VIAL INH SCH ×4 (06:59→20:12)
[2017-07-10] MEDS: LEVALBUTEROL 1.25MG/0.5ML NEB INH SCH ×4 (07:00→20:12)
[2017-07-10] MEDS: FAMOTIDINE 20 MG TAB PO SCH ×2 (08:04→21:26)
[2017-07-10] MEDS: METOPROLOL TARTRATE 25 MG TAB PO SCH ×2 (08:04→21:26)
[2017-07-10] MEDS: DOXYCYCLINE HYCLATE 100 MG CAP PO SCH ×2 (08:04→21:27)
[2017-07-10] MEDS: PANTOprazole SOD 40 MG TAB PO SCH (08:05)
--- NOTE | 2017-07-10 15:12 | Progress Note ---
Medicine Progress Note Date & Time of Visit: Jul 10, 2017 at 15:00 . Subjective asking if he may resume scopolamine patch for drooling. Overall, doing well. Rare cough, no SOB. No chest pain. No nausea or vomiting. Passing formed stool. No reported confusion last night. . Objective Last 8 Hrs Date Time Temp Pulse Resp B/P (MAP) Pulse Ox O2 Delivery O2 Flow Rate FiO2 07/10/17 12:00 Room Air 07/10/17 11:19 86 18 89 Room Air 07/10/17 11:00 36.8 82 20 149/76 (100) 92 07/10/17 08:00 Room Air Physical Exam: General- sitting in chair; no distress Eyes- anicteric Neck- + JVD Lungs- diffuse mild wheezing Heart- RRR Abdomen- + BS, soft, nontender Extremities- trace pretibial edema; no calf tenderness Neuro- alert . Laboratory Results: Last 24 Hours Test 07/09/17 16:05 07/09/17 20:05 07/10/17 05:32 07/10/17 06:30 Bedside Glucose 109 mg/dl 96 mg/dl Sodium Level 142 mmol/L Potassium Level mmol/L Chloride Level 102 mmol/L Carbon Dioxide Level 35 mmol/L Anion Gap 5.0 mmol/L Blood Urea Nitrogen 19 mg/dl Creatinine 0.89 mg/dl Est Creatinine Clear Calc Drug Dose 92.5 ml/min Estimated GFR () 104.0 Estimated GFR (Non- 89.7 BUN/Creatinine Ratio 21.3 Random Glucose 80 mg/dl Calcium Level 8.4 mg/dl Test 07/10/17 06:55 07/10/17 11:20 Potassium Level 3.9 mmol/L Bedside Glucose 107 mg/dl Assessment & Plan ACUTE HYPOXIC AND HYPERCAPNIC RESPIRATORY FAILURE Oxygen saturation 66% at home prior to admission. ABG demonstrated PCO2 as high as 114. Pulmonary Medicine consulted. BiPAP used intermittently for ventilatory support. Spouse reinforced that patient does not wish to be intubated again under any circumstances. Suspected underlying aspiration pneumonia. Received IV methylprednisolone and ipratropium/levalbuterol nebs with improvement. Transitioned to oral steroid therapy with prednisone; taper as able. PNEUMONIA Suspected aspiration pneumonia. At risk for MRSA pneumonia due to + MRSA screen. Must also cover atypical organisms. Best to avoid fluoroquinolones due to delirium. Received IV vancomycin. Blood cultures negative. Stopped vancomycin. Continue ampicillin/sulbactam, doxycycline. RIGHT PLEURAL EFFUSION Right pleural effusion noted on chest x-ray. Pulmonary Medicine attempted thoracentesis, but effusion loculated and minimal fluid was aspirated. ELEVATED SERUM TROPONIN Likely nonspecific elevation secondary to pneumonia/respiratory failure. Doubt acute coronary syndrome. ENCEPHALOPATHY / DELIRIUM Probably secondary to infection/hypercapnia. IV haloperidol PRN with caution. Management of specific underlying problems as outlined above. Improved. Avoid meds with anticholinergic side effects. PARKINSON'S DISEASE Advanced Parkinson's disease. Was NPO due to delirium and high aspiration risk and meds had to be held. Now back on usual regimen. DROOLING Best to avoid scopolamine patch due to earlier problems with delirium. 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 Aspiration precautions. VTE PROPHYLAXIS SQ enoxaparin. RESUSCITATION STATUS "Level 5" (DNR) as documented 08/06/17. DISPOSITION Anticipated need for skilled care or inpatient rehab. [facility] has been at [facility] which is close to his home. Case Management consulted. PT / OT evals. Family Medicine follow-up with Dr. Miguel Angel Curran. Medically improved. Transfer to Med-Surg Unit. . Current Inpatient Medications: Current Inpatient Medications Medications (Trade) Dose Ordered Sig/Luz Route Start Time Stop Time Status Last Admin Dose Admin Enoxaparin Sodium (Lovenox Inj) 40 mg Q24H SC 07/05/17 21:00 08/04/17 13:59 07/09/17 20:35 40 MG Ampicillin Sodium/ Sulbactam Sodium 3000 mg/Sodium Chloride 108 ml @ 200 mls/hr Q6H IV 07/05/17 16:00 07/12/17 15:59 07/10/17 09:22 200 MLS/HR Morphine Sulfate (MoRPHine SULFATE INJ) 2 mg Q2H PRN IV 07/06/17 10:30 07/20/17 10:29 07/07/17 06:41 2 MG Ipratropium [place] (Atrovent 0.02% 0.5MG/2.5ML Neb) 0.5 mg QIDR INH 07/06/17 16:00 08/05/17 15:59 07/10/17 11:17 0.5 MG Levalbuterol (Xopenex 1.25MG/ 0.5ML Neb) 1.25 mg QIDR INH 07/06/17 12:00 08/05/17 11:59 07/10/17 11:18 1.25 MG Levalbuterol (Xopenex 0.63 Mg/ 3 Ml Neb) 0.63 mg Q2H PRN INH 07/06/17 11:30 08/05/17 11:29 Olanzapine (Zyprexa Zydis Od Tab) 5 mg Q12H PRN PO 07/07/17 10:00 08/06/17 09:59 Haloperidol Lactate (Haldol Inj) 0.5 mg Q1H PRN IV 07/07/17 13:00 08/06/17 12:59 07/09/17 01:11 0.5 MG Hydralazine HCl (HydrALAZINE INJ) 10 mg Q6H PRN IV. 07/08/17 05:00 08/07/17 04:59 07/10/17 05:01 10 MG Metoprolol Tartrate (Lopressor Tab) 25 mg BID PO 07/08/17 09:00 08/07/17 08:59 07/10/17 08:04 25 MG Tamsulosin HCl (Flomax Cap) 0.4 mg HS PO 07/08/17 21:00 08/07/17 20:59 07/09/17 20:35 0.4 MG Pantoprazole Sodium (Protonix Tab) 40 mg QAM PO 07/08/17 09:00 08/07/17 08:59 07/10/17 08:05 40 MG Doxycycline Hyclate (Vibramycin Cap) 100 mg BID PO 07/08/17 21:00 07/13/17 20:59 07/10/17 08:04 100 MG Ropinirole HCl (Requip Tab) 4 mg Q4@0600,1000,1400,1800 PO 07/09/17 06:00 08/08/17 05:59 07/10/17 14:51 4 MG Carbidopa/Levodopa (Sinemet 25/ 100MG Tab) 1.5 tab DAILY@0600,0900,1200,1500,1800 PO 07/09/17 06:00 08/08/17 05:59 07/10/17 14:34 1.5 TAB Clonazepam (Klonopin Tab) 1 mg DAILY@2200 PO 07/09/17 22:00 08/08/17 21:59 07/09/17 21:28 1 MG Prednisone (PredniSONE TAB) 40 mg DAILY PO 07/09/17 09:00 08/08/17 08:59 07/10/17 08:05 40 MG Ropinirole HCl (Ropinirole Er) 12 mg HS PO 07/09/17 21:00 08/08/17 20:59 07/09/17 20:35 12 MG Famotidine (Pepcid Tab) 20 mg BID PO 07/09/17 21:00 08/08/17 20:59 07/10/17 08:04 20 MG
[2017-07-10] MEDS: ENOXAPARIN 40 MG/0.4 ML SYR SC SCH (21:24)
[2017-07-10] MEDS: TAMSULOSIN HCL 0.4 MG CAP PO SCH (21:25)
[2017-07-10] MEDS: ROPINIROLE HYDROCHLORIDE PO SCH (21:27)
[2017-07-10] MEDS: CLONAZEPAM 1 MG TAB PO SCH (21:31)
[2017-07-11] VITALS (9 sets, daily range): BP systolic 156–185; BP diastolic 84–109; PULSE 66–82; TEMP 37–37.5; O2SAT 84–94
[2017-07-11] MEDS: AMPICILLIN/SULBACTAM SOD INJ 3,000 MG in SODIUM CHLORIDE 0.9% 100ML 100 ML IV SCH ×4 (03:46→21:49)
[2017-07-11] MEDS: CARBIDOPA/LEVODOPA 25/100MG TAB PO SCH ×5 (05:48→18:16)
[2017-07-11] MEDS: ROPINIROLE HCL 1 MG TAB PO SCH ×4 (05:51→18:16)
[2017-07-11] MEDS: IPRATROPIUM BROMIDE NEB SOLN 0.02% 2.5 ML VIAL INH SCH ×4 (06:28→19:25)
[2017-07-11] MEDS: LEVALBUTEROL 1.25MG/0.5ML NEB INH SCH ×4 (06:28→19:26)
[2017-07-11 07:09] LABS: HEMATOCRIT 42.3 % (42-52); MEAN CELL VOLUME 86.7 fL (80-100); MEAN CORPUSCULAR HEMOGLOBIN 27.5 pg (25-34); MEAN CORPUSCULAR HGB CONC 31.7 g/dl (32-36); MEAN PLATELET VOLUME 9.6 fL (7.4-10.4); PLATELET COUNT 181 K/uL (130-400); RED BLOOD COUNT 4.88 M/uL (4.7-6.1)
[2017-07-11 07:41] LABS: BUN/CREATININE RATIO 17.7 (10-20); CALCIUM 8.1 mg/dl (8.5-10.1); CREATININE 0.93 mg/dl (0.60-1.40); POTASSIUM 3.7 mmol/L (3.5-5.1)
[2017-07-11] MEDS: METOPROLOL TARTRATE 25 MG TAB PO SCH ×2 (07:45→21:47)
[2017-07-11] MEDS: DOXYCYCLINE HYCLATE 100 MG CAP PO SCH ×2 (07:46→21:48)
[2017-07-11] MEDS: FAMOTIDINE 20 MG TAB PO SCH ×2 (07:48→21:48)
[2017-07-11] MEDS: PANTOprazole SOD 40 MG TAB PO SCH (07:55)
[2017-07-11] MEDS ORDERED: LISINOPRIL 2.5 MG TAB PO ONE (12:45)
--- NOTE | 2017-07-11 13:19 | DIAGNOSTIC IMAGING REPORT ---
VIDEO SWALLOW CLINICAL HISTORY: 67 years-old Male with r/o aspiration. Acute cough with concern for aspiration TECHNIQUE: Video fluoroscopic evaluation of swallowing was performed in the AP and lateral projections by the speech pathology staff. The patient is fed nectar-thick and thin liquid barium, a barium coated wafer, and barium pudding. FLUOROSCOPY TIME: 2.1 minutes. COMPARISON STUDY: Chest radiograph 07/09/2017. FINDINGS: Silent aspiration with thin liquid. Silent aspiration with nectar thick liquid. Retrograde motion of solids and liquid noted within the oral pharynx. There is increased kyphosis of the thoracic spine. IMPRESSION: 1. Aspiration with thin and nectar thick liquids. 2. Please see the speech pathologist report for detailed findings and recommendations. Electronically signed by: Marek Malhotra M.D. 07/11/2017 1:17 PM Dictated Date/Time: 07/11/2017 1:14 PM
[2017-07-11] MEDS: ROPINIROLE HYDROCHLORIDE PO SCH (21:48)
[2017-07-11] MEDS: TAMSULOSIN HCL 0.4 MG CAP PO SCH (21:48)
[2017-07-11] MEDS: CLONAZEPAM 1 MG TAB PO SCH (21:49)
[2017-07-11] MEDS: ENOXAPARIN 40 MG/0.4 ML SYR SC SCH (21:49)
--- NOTE | 2017-07-11 23:28 | Progress Note ---
Medicine Progress Note Date & Time of Visit: Jul 11, 2017 at 11:40 . Subjective Video fluoroscopic swallowing evaluation done today. No fever. Occasional cough; denies SOB. No chest pain. No nausea, vomiting, diarrhea. Voiding with some hesitancy. . Objective Vital Signs Label Value Date Time Patient Temperature 37.5 C. 07/11/17 0656 Pulse 80 07/11/17 0656 Location Apical Respiratory Rate 20 07/11/17 0656 Blood Pressure Assessment 166/84 (111) 07/11/17 0656 Location Left Arm Source NIBP Position Supine Physical Exam: General- sitting in chair; no distress Eyes- anicteric Neck- + JVD Lungs- diffuse mild wheezing Heart- RRR Abdomen- + BS, soft, nontender Extremities- trace pretibial edema; no calf tenderness Neuro- alert, dysarthric . Laboratory Results: Last 24 Hours Test 07/11/17 06:51 07/11/17 07:50 White Blood Count 7.50 K/uL Red Blood Count 4.88 M/uL Hemoglobin 13.4 g/dL Hematocrit 42.3 % Mean Corpuscular Volume 86.7 fL Mean Corpuscular Hemoglobin 27.5 pg Mean Corpuscular Hemoglobin Concent 31.7 g/dl RDW Standard Deviation 57.6 fL RDW Coefficient of Variation 17.9 % Platelet Count 181 K/uL Mean Platelet Volume 9.6 fL Sodium Level 143 mmol/L Potassium Level 3.7 mmol/L Chloride Level 104 mmol/L Carbon Dioxide Level 34 mmol/L Anion Gap 5.0 mmol/L Blood Urea Nitrogen 16 mg/dl Creatinine 0.93 mg/dl Est Creatinine Clear Calc Drug Dose 88.5 ml/min Estimated GFR () 99.5 Estimated GFR (Non- 85.8 BUN/Creatinine Ratio 17.7 Random Glucose 87 mg/dl Calcium Level 8.1 mg/dl Bedside Glucose 74 mg/dl Assessment & Plan ACUTE HYPOXIC AND HYPERCAPNIC RESPIRATORY FAILURE Oxygen saturation 66% at home prior to admission. ABG demonstrated PCO2 as high as 114. Pulmonary Medicine consulted. BiPAP used intermittently for ventilatory support. Spouse reinforced that patient does not wish to be intubated again under any circumstances. Suspected underlying aspiration pneumonia. Received IV methylprednisolone and ipratropium/levalbuterol nebs with improvement. Transitioned to oral steroid therapy with prednisone; taper as able. PNEUMONIA Suspected aspiration pneumonia. At risk for MRSA pneumonia due to + MRSA screen. Fluoroquinolones not utilized due to delirium. Initially received IV vancomycin, ampicillin/sulbactam, doxycycline. Blood cultures negative. Stopped vancomycin. Continue ampicillin/sulbactam, doxycycline to complete 7-10 day course of therapy. RIGHT PLEURAL EFFUSION Right pleural effusion noted on chest x-ray. Pulmonary Medicine attempted thoracentesis, but effusion loculated and minimal fluid was aspirated. ELEVATED SERUM TROPONIN Likely nonspecific elevation secondary to pneumonia/respiratory failure. Doubt acute coronary syndrome. ENCEPHALOPATHY / DELIRIUM Probably secondary to infection/hypercapnia. IV haloperidol PRN with caution. Management of specific underlying problems as outlined above. Improved. Avoid meds with anticholinergic side effects. PARKINSON'S DISEASE Advanced Parkinson's disease. Was NPO due to delirium and high aspiration risk and meds had to be held. Now back on usual regimen. DROOLING Best to avoid scopolamine patch due to earlier problems with delirium. SUSPECTED ASPIRATION GLASS SAGGER consulted. Video fluoroscopic swallowing evaluation performed and demonstrated aspiration as detailed in report. Findings and implication discussed with patient and his . He enjoys eating and drinking. He understands and accepts the risks of continued oral intake. He does not want a feeding tube (it would not eliminate the risk of aspiration anyway). Continue aspiration precautions. VTE PROPHYLAXIS SQ enoxaparin. RESUSCITATION STATUS "Level 5" (DNR) as documented 08/06/17. DISPOSITION Anticipated need for skilled care or inpatient rehab. He has been at [facility] previously which is close to his home. Case Management consulted. PT / OT evals. Family Medicine follow-up with Dr. Miguel Angel Curran. . Current Inpatient Medications: Current Inpatient Medications Medications (Trade) Dose Ordered Sig/Luz Route Start Time Stop Time Status Last Admin Dose Admin Enoxaparin Sodium (Lovenox Inj) 40 mg Q24H SC 07/05/17 21:00 08/04/17 13:59 07/11/17 21:49 40 MG Ampicillin Sodium/ Sulbactam Sodium 3000 mg/Sodium Chloride 108 ml @ 200 mls/hr Q6H IV 07/05/17 16:00 07/12/17 15:59 07/11/17 21:49 200 MLS/HR Morphine Sulfate (MoRPHine SULFATE INJ) 2 mg Q2H PRN IV 07/06/17 10:30 07/20/17 10:29 07/07/17 06:41 2 MG Ipratropium [place] (Atrovent 0.02% 0.5MG/2.5ML Neb) 0.5 mg QIDR INH 07/06/17 16:00 08/05/17 15:59 07/11/17 19:25 0.5 MG Levalbuterol (Xopenex 1.25MG/ 0.5ML Neb) 1.25 mg QIDR INH 07/06/17 12:00 08/05/17 11:59 07/11/17 19:26 1.25 MG Levalbuterol (Xopenex 0.63 Mg/ 3 Ml Neb) 0.63 mg Q2H PRN INH 07/06/17 11:30 08/05/17 11:29 Olanzapine (Zyprexa Zydis Od Tab) 5 mg Q12H PRN PO 07/07/17 10:00 08/06/17 09:59 Hydralazine HCl (HydrALAZINE INJ) 10 mg Q6H PRN IV. 07/08/17 05:00 08/07/17 04:59 07/10/17 16:55 10 MG Metoprolol Tartrate (Lopressor Tab) 25 mg BID PO 07/08/17 09:00 08/07/17 08:59 07/11/17 21:47 25 MG Tamsulosin HCl (Flomax Cap) 0.4 mg HS PO 07/08/17 21:00 08/07/17 20:59 07/11/17 21:48 0.4 MG Pantoprazole Sodium (Protonix Tab) 40 mg QAM PO 07/08/17 09:00 08/07/17 08:59 07/11/17 07:55 40 MG Doxycycline Hyclate (Vibramycin Cap) 100 mg BID PO 07/08/17 21:00 07/13/17 20:59 07/11/17 21:48 100 MG Ropinirole HCl (Requip Tab) 4 mg Q4@0600,1000,1400,1800 PO 07/09/17 06:00 08/08/17 05:59 07/11/17 18:16 4 MG Carbidopa/Levodopa (Sinemet 25/ 100MG Tab) 1.5 tab DAILY@0600,0900,1200,1500,1800 PO 07/09/17 06:00 08/08/17 05:59 07/11/17 18:16 1.5 TAB Clonazepam (Klonopin Tab) 1 mg DAILY@2200 PO 07/09/17 22:00 08/08/17 21:59 07/11/17 21:49 1 MG Prednisone (PredniSONE TAB) 40 mg DAILY PO 07/09/17 09:00 08/08/17 08:59 07/11/17 07:45 40 MG Ropinirole HCl (Ropinirole Er) 12 mg HS PO 07/09/17 21:00 08/08/17 20:59 07/11/17 21:48 12 MG Famotidine (Pepcid Tab) 20 mg BID PO 07/09/17 21:00 08/08/17 20:59 07/11/17 21:48 20 MG Lisinopril (Zestril Tab) 5 mg QAM PO 07/12/17 09:00 08/11/17 08:59
[2017-07-12] VITALS (8 sets, daily range): BP systolic 148–184; BP diastolic 79–112; PULSE 59–84; TEMP 36.8–37.1; O2SAT 91–95
[2017-07-12] MEDS: AMPICILLIN/SULBACTAM SOD INJ 3,000 MG in SODIUM CHLORIDE 0.9% 100ML 100 ML IV SCH ×2 (03:58→09:34)
[2017-07-12] MEDS: CARBIDOPA/LEVODOPA 25/100MG TAB PO SCH ×5 (06:09→17:27)
[2017-07-12] MEDS: ROPINIROLE HCL 1 MG TAB PO SCH ×4 (06:09→17:26)
[2017-07-12] MEDS: IPRATROPIUM BROMIDE NEB SOLN 0.02% 2.5 ML VIAL INH SCH ×4 (07:29→20:29)
[2017-07-12] MEDS: LEVALBUTEROL 1.25MG/0.5ML NEB INH SCH ×4 (07:29→20:29)
[2017-07-12] MEDS: LISINOPRIL 5 MG TAB PO SCH (07:44)
[2017-07-12] MEDS: METOPROLOL TARTRATE 25 MG TAB PO SCH ×2 (07:45→20:53)
[2017-07-12] MEDS: PANTOprazole SOD 40 MG TAB PO SCH (07:45)
[2017-07-12] MEDS: DOXYCYCLINE HYCLATE 100 MG CAP PO SCH ×2 (07:45→20:53)
[2017-07-12] MEDS: FAMOTIDINE 20 MG TAB PO SCH ×2 (08:31→20:53)
--- NOTE | 2017-07-12 13:37 | Progress Note ---
Internal Med Progress Note Date of Service: Jul 12, 2017. Provider Documentation: SUBJECTIVE: The patient was seen and examined OOB in a chair without any oxygen Generally weak DEnies any symptoms OBJECTIVE: Vital Signs-as noted below Exam: General-No distress at rest Eyes-normal ENT-normal Neck-supple Lungs-clear to ausucltate bilaterally Heart-Regular,no murmur appreciated Abdomen-Benign,no masses,bowel sound present Extremities-trace edema basilaterally Neuro-AAOx3 Generally weak and lethargic Lab data as noted below. ASSESSMENT & PLAN: ACUTE HYPOXIC AND HYPERCAPNIC RESPIRATORY FAILURE Oxygen saturation 66% at home prior to admission. ABG demonstrated PCO2 as high as 114. BiPAP used intermittently for ventilatory support. Spouse reinforced that patient does not wish to be intubated again under any circumstances. Received IV methylprednisolone and ipratropium/levalbuterol nebs with improvement. Transitioned to oral steroid therapy with prednisone; taper as able. Pulmonary consulted -appreciate input Clinically a lot better 2 steps before discharge PNEUMONIA Suspected aspiration pneumonia. At risk for MRSA pneumonia due to + MRSA screen. Fluoroquinolones not utilized due to delirium. Initially received IV vancomycin, ampicillin/sulbactam, doxycycline. Blood cultures negative.Stopped vancomycin. Continue ampicillin/sulbactam, doxycycline to complete 7-10 day course of therapy. Appreciate Speech Therapy recommendation Patient wants to continue with Regular diet ENCEPHALOPATHY / DELIRIUM Probably secondary to infection/hypercapnia. IV haloperidol PRN with caution. Management of specific underlying problems as outlined above. Improved to baseline Avoid meds with anticholinergic side effects. RIGHT PLEURAL EFFUSION Right pleural effusion noted on chest x-ray. Pulmonary Medicine attempted thoracentesis, but effusion loculated and minimal fluid was aspirated. ELEVATED SERUM TROPONIN Likely nonspecific elevation secondary to pneumonia/respiratory failure. Doubt acute coronary syndrome. Remains asymptomatic PARKINSON'S DISEASE Advanced Parkinson's disease. Was NPO due to delirium and high aspiration risk and meds had to be held. Now back on usual regimen. Wants to continue regular food Best to avoid scopolamine patch due to earlier problems with delirium. No more Drooling SUSPECTED ASPIRATION SLUICE TENDER consulted. Video fluoroscopic swallowing evaluation performed and demonstrated aspiration as detailed in report. Findings and implication discussed with patient and his . He enjoys eating and drinking. He understands and accepts the risks of continued oral intake. He does not want a feeding tube (it would not eliminate the risk of aspiration anyway). Continue aspiration precautions. VTE PROPHYLAXIS SQ enoxaparin. RESUSCITATION STATUS "Level 5" (DNR) as documented 08/06/17. DISPOSITION Anticipated need for skilled care or inpatient rehab. He has been at [facility] previously which is close to his home. Case Management consulted. PT / OT evals. Family Medicine follow-up with Dr. Miguel Angel Curran. Likely back to tomorrow Discussed with the Vital Signs: Date Time Temp Pulse Resp B/P (MAP) Pulse Ox O2 Delivery O2 Flow Rate FiO2 07/12/17 11:15 73 18 93 Room Air 07/12/17 08:00 Room Air 07/12/17 07:30 71 18 93 Room Air 07/12/17 07:28 36.9 65 20 184/97 (126) 91 Room Air 177/112 (133) 07/12/17 00:09 36.9 59 20 148/79 (102) 95 Room Air 07/12/17 00:00 Room Air 07/11/17 21:46 72 156/89 (111) 07/11/17 19:28 72 18 92 Room Air 07/11/17 16:00 94 Room Air 07/11/17 15:19 66 18 94 Room Air 07/11/17 15:07 37.0 82 20 185/100 (128) 93 Room Air 07/11/17 14:35 74 180/84 (116)
[2017-07-12] MEDS: CLONAZEPAM 1 MG TAB PO SCH (20:53)
[2017-07-12] MEDS: ENOXAPARIN 40 MG/0.4 ML SYR SC SCH (20:53)
[2017-07-12] MEDS: TAMSULOSIN HCL 0.4 MG CAP PO SCH (20:53)
[2017-07-12] MEDS: ROPINIROLE HYDROCHLORIDE PO SCH (20:54)
[2017-07-13] MEDS: CARBIDOPA/LEVODOPA 25/100MG TAB PO SCH ×3 (05:51→11:33)
[2017-07-13] MEDS: ROPINIROLE HCL 1 MG TAB PO SCH ×3 (05:51→13:27)
[2017-07-13] MEDS: LISINOPRIL 5 MG TAB PO SCH (07:15)
[2017-07-13] MEDS: DOXYCYCLINE HYCLATE 100 MG CAP PO SCH (07:15)
[2017-07-13] MEDS: METOPROLOL TARTRATE 25 MG TAB PO SCH (07:16)
[2017-07-13] MEDS: FAMOTIDINE 20 MG TAB PO SCH (07:16)
[2017-07-13] MEDS: PANTOprazole SOD 40 MG TAB PO SCH (07:16)
[2017-07-13] MEDS: IPRATROPIUM BROMIDE NEB SOLN 0.02% 2.5 ML VIAL INH SCH ×2 (07:30→11:28)
[2017-07-13] MEDS: LEVALBUTEROL 1.25MG/0.5ML NEB INH SCH ×2 (07:30→11:28)
[2017-07-13 11:29] VITALS: PULSE 75; O2SAT 95
--- NOTE | 2017-07-13 13:06 | Progress Note ---
Internal Med Progress Note Date of Service: Jul 13, 2017. Provider Documentation: SUBJECTIVE: The patient was seen and examined OOB in a chair without any oxygen Generally weak otherwise OK Denies any symptoms again today Saturating well on RA OBJECTIVE: Vital Signs-as noted below Exam: General-No distress at rest Eyes-normal ENT-normal Neck-supple Lungs-clear to ausucltate bilaterally With decreased breath sound bilaterally Heart-Regular,no murmur appreciated Abdomen-Benign,no masses,bowel sound present Extremities-trace edema basilaterally Neuro-AAOx3 Generally weak and lethargic Lab data as noted below. ASSESSMENT & PLAN: ACUTE HYPOXIC AND HYPERCAPNIC RESPIRATORY FAILURE Oxygen saturation 66% at home prior to admission. ABG demonstrated PCO2 as high as 114. BiPAP used intermittently for ventilatory support. Spouse reinforced that patient does not wish to be intubated again under any circumstances. Received IV methylprednisolone and ipratropium/levalbuterol nebs with improvement. Transitioned to oral steroid therapy with prednisone; taper as able. Pulmonary consulted -appreciate input Clinically a lot better Does not require 2 step before discharge Will go to [facility] this afternoon PNEUMONIA Suspected aspiration pneumonia. At risk for MRSA pneumonia due to + MRSA screen. Fluoroquinolones not utilized due to delirium. Initially received IV vancomycin, ampicillin/sulbactam, doxycycline. Blood cultures negative.Stopped vancomycin. Continue ampicillin/sulbactam, doxycycline to complete 7-10 day course of therapy. Appreciate Speech Therapy recommendation Patient wants to continue with Regular diet Advised to precaution to prevent aspiration ENCEPHALOPATHY / DELIRIUM Probably secondary to infection/hypercapnia. IV haloperidol PRN with caution. Management of specific underlying problems as outlined above. Improved to baseline Avoid meds with anticholinergic side effects. RIGHT PLEURAL EFFUSION Right pleural effusion noted on chest x-ray. Pulmonary Medicine attempted thoracentesis, but effusion loculated and minimal fluid was aspirated. ELEVATED SERUM TROPONIN Likely nonspecific elevation secondary to pneumonia/respiratory failure. Doubt acute coronary syndrome. Remains asymptomatic PARKINSON'S DISEASE Advanced Parkinson's disease. Was NPO due to delirium and high aspiration risk and meds had to be held. Now back on usual regimen. Wants to continue regular food Best to avoid scopolamine patch due to earlier problems with delirium. No more Drooling Remains stable SUSPECTED ASPIRATION HOOK TENDER consulted. Video fluoroscopic swallowing evaluation performed and demonstrated aspiration as detailed in report. Findings and implication discussed with patient and his . He enjoys eating and drinking. He understands and accepts the risks of continued oral intake. He does not want a feeding tube (it would not eliminate the risk of aspiration anyway). Continue aspiration precautions. VTE PROPHYLAXIS SQ enoxaparin. RESUSCITATION STATUS "Level 5" (DNR) as documented 08/06/17. DISPOSITION Anticipated need for skilled care or inpatient rehab. He has been at [facility] previously which is close to his home. Case Management consulted. PT / OT evals. Family Medicine follow-up with Dr. Miguel Angel Curran. Likely back to tomorrow Discussed with the Vital Signs: Date Time Temp Pulse Resp B/P (MAP) Pulse Ox O2 Delivery O2 Flow Rate FiO2 07/13/17 11:29 75 18 95 Room Air 07/13/17 08:00 Room Air 07/13/17 00:00 Room Air 07/12/17 23:11 37.1 61 20 152/80 (104) 93 Room Air 07/12/17 20:29 75 18 95 Room Air 07/12/17 20:00 Room Air 07/12/17 16:02 36.8 84 18 164/101 (122) 94 Room Air 07/12/17 16:00 Room Air 07/12/17 15:15 69 18 94 Room Air
[2017-07-13] MEDS ORDERED: DXY100 PO (13:11)
[2017-07-13] MEDS ORDERED: PRD10 PO (13:11)
[2017-07-13] MEDS ORDERED: LCTX PO (13:11)
--- NOTE | 2017-07-13 13:14 | Discharge Instructions ---
Discharge Instructions Date of Service Jul 13, 2017. Admission Reason for Admission: Hypercapnic Respiratory Failure Discharge Discharge Diagnosis / Problem: Respiratory failure,Parkinson disease Discharge Goals Goal(s): Prevent Disease Progression Activity Recommendations Activity Level: Assistance Required Therapies: Physical Therapy, Occupational Therapy, Speech Therapy . Additional Information Patient informed of condition: Yes Advance Directives: No DNR: Yes Level of Care: Skilled Communicable Disease: No Prognosis: Stable Oxygen at (LPM): 2 liter/min via NC as needed Oliver Catheter: No Instructions / Follow-Up Instructions / Follow-Up Please take precaution to avoid fall Current Hospital Diet Patient's current hospital diet: AHA Diet (Heart Healthy) Discharge Diet Recommended Diet: AHA Diet (Heart Healthy) Pending Studies Studies pending at discharge: no Medical Emergencies . Who to Call and When: Medical Emergencies: If at any time you feel your situation is an emergency, please call 911 immediately. . Non-Emergent Contact Non-Emergency issues call your: Primary Care Provider . Past History Medical & Surgical History: (1) Altered mental status (2) Obstructive sleep apnea (3) Hypercapnic respiratory failure (4) Parkinson disease (5) BPH (benign prostatic hypertrophy) (6) History of kidney stones (7) Iron deficiency anemia (8) Venous insufficiency (9) HTN (hypertension) (10) GERD (gastroesophageal reflux disease) (11) S/P deep brain stimulator placement (12) H/O inguinal hernia repair (13) S/p tonsil surgery (14) H/O shoulder surgery (15) Hypotension . "Provider Documentation" section prepared by Haleigh Becker. . Marketing Professor Recommendations Marketing Professor Recommendations: In my clinical judgment this beneficiary meets acute admission criteria, established by [facility], that includes being hospitalized through two midnights. Core Measure Problem Core Measures: None
[2017-07-13 13:57] VITALS: BP 152/80; PULSE 75; TEMP 37.1; O2SAT 95
--- NOTE | 2017-07-13 17:49 | Discharge Summary ---
Discharge Summary Date of Service Jul 13, 2017. Discharge Summary Admission Date: Jul 05, 2017 at 13:17 Discharge Date: Jul 13, 2017 [facility]charge Disposition: [facility] facility Principal Diagnosis: Respiratory failure,Parkinson disease Secondary Diagnoses/Problems: Please see H&P and Hospital Progress note Consultations: Pulmonary Medication Reconciliation New Medications: Lactobacillus Acidophilus (Lactinex) Tab 2 TAB PO BID, #30 TAB Doxycycline Hyclate (Doxycycline Hyclate) 100 Mg Cap 100 MG PO BID for 2 Days, #4 CAP Prednisone (Prednisone) 10 Mg Tab 10 MG PO UD for 12 Days, #30 TAB 3 PO daily for 3 days,2 po Daily for 3 days,1 po daily for 3 days and then 1 po daily for 3 days Continued Medications: Carbidopa/Levodopa (Sinemet 25MG/100MG) Tab 1.5 TAB PO 5XD, TAB Carbidopa/Levodopa (Sinemet Cr 25MG/100MG) Tabcr 1 TAB PO HS, TAB Clonazepam (Klonopin) 0.5 Mg Tab 1 MG PO HS for 30 Days, #20 TAB Cyanocobalamin (Vitamin B-12) 1,000 Mcg Tab 1500 MCG PO DAILY, TAB Ferrous Sulfate (Kp Ferrous Sulfate) 325 Mg Tab 325 MG PO BID for 30 Days, #60 TAB 3 Refills Fish Oil ([place]-3) 1 Ea Cap 1000 MG PO DAILY, CAP Lisinopril (Prinivil) 10 Mg Tab 10 MG PO DAILY, TAB Metoprolol Tartrate (Lopressor) (Lopressor) 25 Mg Tab 25 MG PO BID for 90 Days, #180 TAB 1 Refill Niacin (Niacin) 500 Mg Tab 500 MG PO DAILY, TAB Omeprazole (Prilosec) 20 Mg Capcr 20 MG PO DAILY, CAP Ropinirole (Requip) 4 Mg Tab 4 MG PO QID Ropinirole Hydrochloride (Ropinirole Er) 12 Mg Tab 1 TAB PO HS Scopolamine (Transderm-Scop) 1 Mg/3 Days Dis 1.5 MG TD Q72H, #10 PATCH Tamsulosin HCl (Tamsulosin HCl) 0.4 Mg Cap 0.4 MG PO HS Discontinued Medications: Amoxicillin & Pot Clavulanate (Augmentin 875-125 mg) 1 Tab Tab 1 TAB PO BID, #14 TAB Prednisone (Prednisone) 20 Mg Tab 1 TAB PO UD 1 tab 3 times a day for 3 days, then 1 tab 2 times a day for 3 days, then 1 tab daily for 3 days. Admission Information HPI (per Admitting provider): This is a 67yo M with a PMH of advanced Parkinson's disease (s/p brain stimulator), HTN, who presents with respiratory distress beginning a few days ago. Per , patient has been sick with a URI since Jun 23 with symptoms of cough, chills, nasal congestion. Was started on azithromycin. This past Tuesday, patient started to have difficulty breathing at home and O2 saturation was in 66 %, per . Borrowed oxygen over the weekend. Saw PCP again yesterday and was started on home oxygen, oral prednisone and switched to Augmentin for aspiration PNA coverage. PCP note documents hypoxia to 86% in office. Prompted to go to ER, but patient refused. When went to wake patient this morning, he seemed lethargic, so she brought him in to ER for further evaluation. Patient drowsy and essentially non-verbal during interview, so HPI is limited. Did speak occasionally but is dysarthric. Was arousable to loud stimuli and cooperative with commands. Per , patient was experiencing nasal congestion, chills, cough, malaise starting a few weeks ago. Dyspnea,SOB and wheezing began on Tuesday. Denies any CP, palpitations, nausea/vomiting. Of note, patient was admitted in February of this year for hypoxic respiratory failure possible due to aspiration PNA 2/2 Parkinson's. While on Bipap, patient had an episode of emesis that further complicated respiratory status, requiring intubation and ventilator placement. Noted after that visit that he did not want to be on a vent again, per . Past Medical/Surgical History Medical Problems: (1) BPH (benign prostatic hypertrophy) Status: Chronic (2) Dyslipidemia Status: Chronic (3) GERD (gastroesophageal reflux disease) Status: Chronic (4) History of kidney stones Status: Chronic (5) HTN (hypertension) Status: Chronic (6) Iron deficiency anemia Status: Chronic (7) Overactive bladder Status: Chronic (8) Parkinson disease Status: Chronic (9) Venous insufficiency Status: Chronic Surgical Problems: (1) H/O inguinal hernia repair Status: Chronic (2) H/O shoulder surgery Status: Chronic (3) S/P deep brain stimulator placement Status: Chronic (4) S/p tonsil surgery Status: Chronic Family History Diabetes mellitus MOTHER FH: asthma FATHER FH: prostate cancer FATHER Hypertension FATHER SISTER Kidney disease Kidney stones Social History Smoking Status: Former Smoker Marital Status: Housing status: lives with significant other Immunizations History of Influenza Vaccine: Yes Influenza Vaccine Date: Jul 27, 2016 History of Tetanus Vaccine?: Yes Tetanus Immunization Date: Jul 27, 2016 History of Pneumococcal: Yes Pneumococcal Date: Dec 15, 2012 Multi-Drug Resistant Organisms History of MDRO: Yes Type of MDRO: MRSA Allergies Coded Allergies: Sulindac (Verified Adverse Reaction, Intermediate, STOMACH IRRATION, 07/05) Home Medications Scheduled Amoxicillin & Pot Clavulanate (Augmentin 875-125 mg), 1 TAB PO BID Carbidopa/Levodopa (Sinemet 25MG/100MG), 1.5 TAB PO 5XD Carbidopa/Levodopa (Sinemet Cr 25MG/100MG), 1 TAB PO HS Clonazepam (Klonopin), 1 MG PO HS Cyanocobalamin (Vitamin B-12), 1,500 MCG PO DAILY Ferrous Sulfate (Kp Ferrous Sulfate), 325 MG PO BID Fish Oil ([place]-3), 1,000 MG PO DAILY Lisinopril (Prinivil), 10 MG PO DAILY Metoprolol Tartrate (Lopressor) (Lopressor), 25 MG PO BID Niacin (Niacin), 500 MG PO DAILY Omeprazole (Prilosec), 20 MG PO DAILY Prednisone (Prednisone), 1 TAB PO UD Ropinirole (Requip), 4 MG PO QID Ropinirole Hydrochloride (Ropinirole Er), 1 TAB PO HS Scopolamine (Transderm-Scop), 1.5 MG TD Q72H Tamsulosin HCl (Tamsulosin HCl), 0.4 MG PO HS Physical Ex - H&P Physical Exam Vital Signs Date Time Temp Pulse Resp B/P (MAP) Pulse Ox O2 Delivery O2 Flow Rate FiO2 07/05/17 13:48 80 94 60 07/05/17 13:47 69 24 130/70 95 Nasal Cannula 2.0 07/05/17 12:14 64 24 116/73 96 Nasal Cannula 2.0 07/05/17 11:00 95 Nasal Cannula 2.0 07/05/17 10:53 37.1 57 25 105/73 95 Nasal Cannula 07/05/17 10:53 95 Nasal Cannula 07/05/17 10:49 66 General Appearance: + moderate distress, + pertinent finding (Kyphotic, lethargic, in respiratory distress but still arousable to loud auditory stimuli ) Head: normocephalic, atraumatic Eyes: normal inspection, PERRL, EOMI, sclerae normal (conjunctiva normal ) ENT: normal ENT inspection, hearing grossly normal, pharynx normal, + nasal congestion Neck: supple, no adenopathy, trachea midline Respiratory/Chest: chest non-tender, + decreased breath sounds (R>L), + accessory muscle use, + wheezing (Expiratory wheezing appreciated in upper left lung field ) Cardiovascular: regular rate, rhythm, no murmur, normal peripheral pulses Abdomen/GI: normal bowel sounds, non tender, soft, no organomegaly Back: normal inspection Extremities/Musculoskelatal: no calf tenderness, + pertinent finding (1-2+ edema in bilateral LE to knee (chronic) ) Neurologic/Psych: no motor/sensory deficits (Unable to assess motor function 2/ 2 altered status. Able to ambulate with walker at baseline, per ), normal mood/affect (Flattened affect ), + pertinent finding (Lethargic, dysarthric. ) Skin: normal color, warm/dry, no rash Diagnostics - H&P Diagnostics Laboratory Results Results Past 24 Hours Test 07/05/17 11:33 07/05/17 11:50 Range/Units White Blood Count 10.24 4.8-10.8 K/uL Red Blood Count 4.87 4.7-6.1 M/uL Hemoglobin 13.6 14.0-18.0 g/dL Hematocrit 44.7 42-52 % Mean Corpuscular Volume 91.8 80-100 fL Mean Corpuscular Hemoglobin 27.9 25-34 pg Mean Corpuscular Hemoglobin Concent 30.4 32-36 g/dl Platelet Count 238 130-400 K/uL Mean Platelet Volume 9.4 7.4-10.4 fL Neutrophils (%) (Auto) 89.9 % Lymphocytes (%) (Auto) 3.2 % Monocytes (%) (Auto) 6.4 % Eosinophils (%) (Auto) 0.1 % Basophils (%) (Auto) 0.1 % Neutrophils # (Auto) 9.20 1.4-6.5 K/uL Lymphocytes # (Auto) 0.33 1.2-3.4 K/uL Monocytes # (Auto) 0.66 0.11-0.59 K/uL Eosinophils # (Auto) 0.01 0-0.5 K/uL Basophils # (Auto) 0.01 0-0.2 K/uL RDW Standard Deviation 62.9 36.4-46.3 fL RDW Coefficient of Variation 18.5 11.5-14.5 % Immature Granulocyte % (Auto) 0.3 % Immature Granulocyte # (Auto) 0.03 0.00-0.02 K/uL Erythrocyte Sedimentation Rate 15 0-14 mm/hr Prothrombin Time 11.9 9.0-12.0 SECONDS Prothromb Time International Ratio 1.1 0.9-1.1 Activated Partial Thromboplast Time 28.2 21.0-31.0 SECONDS Partial Thromboplastin Ratio 1.1 Venous Blood pH 7.22 7.36-7.41 Venous Blood Partial Pressure CO2 100 38.0-50.0 mmHg Venous Blood Partial Pressure O2 34 mmHg Venous Blood HCO3 40 mmol/L Venous Blood Oxygen Saturation 60.3 % Venous Blood Base Excess 7.8 mEq/L Sodium Level 133 136-145 mmol/L Potassium Level 5.2 3.5-5.1 mmol/L Chloride Level 94 98-107 mmol/L Carbon Dioxide Level 38 21-32 mmol/L Anion Gap 1.0 3-11 mmol/L Blood Urea Nitrogen 12 7-18 mg/dl Creatinine 0.84 0.60-1.40 mg/dl Est Creatinine Clear Calc Drug Dose 96.6 ml/min Estimated GFR () 106.5 Estimated GFR (Non- 91.9 BUN/Creatinine Ratio 14.7 10-20 Random Glucose 104 70-99 mg/dl Calcium Level 8.0 8.5-10.1 mg/dl Phosphorus Level 3.9 2.5-4.9 mg/dl Magnesium Level 2.2 1.8-2.4 mg/dl Total Bilirubin 0.3 0.2-1 mg/dl Aspartate Amino Transf (AST/SGOT) 13 15-37 U/L Alanine Aminotransferase (ALT/SGPT) < 6 12-78 U/L Alkaline Phosphatase 76 45-117 U/L Total Creatine Kinase 47 39-308 U/L Creatine Kinase MB 2.4 0.5-3.6 ng/ml Creatine Kinase MB Ratio 5.1 0-3.0 Troponin I 0.087 0-0.045 ng/ml C-Reactive Protein 0.67 0-0.29 mg/dl Pro-B-Type Natriuretic Peptide 1762 0-900 pg/ml Total Protein 6.7 6.4-8.2 gm/dl Albumin 3.0 3.4-5.0 gm/dl Globulin 3.7 2.5-4.0 gm/dl Albumin/Globulin Ratio 0.8 0.9-2 Lipase 91 73-393 U/L Bedside Lactic Acid Venous 0.86 0.90-1.70 mmol/L Microbiology Results 07/05/17 Blood Culture, Received Pending 07/05/17 Blood Culture, Received Pending Diagnostic Radiology Head CT: IMPRESSION: 1. No acute intracranial findings 2. Bilateral deep brain stimulators with encephalomalacia surrounding the left stimulator lead 3. Pansinus disease CXR: IMPRESSION: 1. Bony venous hypertension 2. Small right pleural effusion 3. Bibasilar opacities likely atelectatic EKG Normal sinus rhythm T wave abnormality, consider anterolateral ischemia No change from prior EKG Impression - H&P Impression Assessment and Plan This is a 67yo M with a PMH of advanced Parkinson's disease (s/p brain stimulator), HTN, who presents with respiratory distress beginning a few days ago. Acute hypercapnic respiratory failure: -VBG pH of 7.2, pco2 of 100 -Likely 2/2 aspiration PNA in the setting of adv PD. -Also a likely component of obesity hypoventilation syndrome -Per pulm note from previous admission, likely has an underlying chronic lung pathology but unable to tolerate PFTs -Unasyn initiated for coverage of aspiration PNA, bilateral sinusitis -CXR with presence of bibasilar opacities, likely atelectasis -Pulm consulted. Appreciate recs -Initiated BiPap -Strict NPO, scheduled anti-emetics -ABG in Q4H Hypercapnic encephalopathy: -Lethargic -Head CT with no acute intracranial findings -On Bipap, ABG Q4H -Neuro checks Advanced Parkinson's Disease: end stage -S/p brain stimulator -Hold Sinemet and Requip until Bipap removed Elevated troponin: -H/o elevated troponin on previous admissions -Denies any CP -EKG with T wave inversion suggestive of anteriolateral ischemia -No significant change since previous EKG findings in February -Trend troponin -Consider echo Microcytic anemia: -Iron deficiency -Supplements currently held vp marketing services and skin/dispo: -Palliative care consult placed in the setting of end stage PD -Patient with recurrent bouts of aspiration PNA 2/2 PD -Has verbalized to that he does not want mechanical ventilation -Would appreciate input in reassessing code status -PT/OT evals -vp marketing services and skin for dispo DVT Ppx: Lovenox Code status: FULL, no mech ventilation (per my discussion with patient's ) PCP: Bina Dispo: SW consulted to help with discharge placement Patient seen in collaboration with Dr. Garber. Please see addendum. ADDENDUM: I have seen and evaluated the patient and agree with the assessment and plan as above. Per my exam, the patient was clearly somnolent and nonverbal which is his baseline. Per his , he was adamantly refusing BIPAP because of being scared of aspiration like what happened during his last admission. and I talked him into trying the BIPAP for the severe CO2 retention and strict NPO status was communicated to all nursing staff. Also scheduled Zofran while BIPAP in place to avoid nausea as a trigger to vomit with the mask in place. Initial ABG on 23/01 revealed a worsened pH. Dr. Oliver adjusted settings to 20/8 with clinical improvement in level of alertness and increased pH and decreased CO2 on repeat ABG. Per pulm he is to stay on this overnight with no changes. This was communicated to the nighttime respiratory therapist. Ativan given for anxiety. Case was discussed with the nursing staff for better understanding of goals. Palliative care team consulted to further discuss code status with them. Three different providers discussed code status with he and his and the consistent response was full code without mech ventilation. They had it explained clearly by myself and Dr. Oliver that if the BIPAP doesn't work, there may not be another option for treatment if mechanical ventilation is not allowed. The patient and his both understand. On my exam he is afebrile and hemodynamically stable. Lung exam was severely limited with patient not taking deep breaths and having severe kyphosis. Some wheezing heard in L lung field and diminished breath sounds throughout. Cont BIPAP and maintenance IVF while NPO. Unasyn for sinusitis vs aspiration PNA. Strict NPO. DO Jcarlos Level of Care Telemetry Resuscitation Status FULL NO MECH VENTILATION VTE Prophylaxis VTE Risk Assessment Done? Y/N: Yes Risk Level: Moderate Given or contraindicated: Enoxaparin (Lovenox)SQ Physical Exam (per Admitting): General Appearance: + moderate distress, + pertinent finding (Kyphotic, lethargic, in respiratory distress but still arousable to loud auditory stimuli ) Head: normocephalic, atraumatic Eyes: normal inspection, PERRL, EOMI, sclerae normal (conjunctiva normal ) ENT: normal ENT inspection, hearing grossly normal, pharynx normal, + nasal congestion Neck: supple, no adenopathy, trachea midline Respiratory/Chest: chest non-tender, + decreased breath sounds (R>L), + accessory muscle use, + wheezing (Expiratory wheezing appreciated in upper left lung field ) Cardiovascular: regular rate, rhythm, no murmur, normal peripheral pulses Abdomen/GI: normal bowel sounds, non tender, soft, no organomegaly Back: normal inspection Extremities/Musculoskelatal: no calf tenderness, + pertinent finding (1-2+ edema in bilateral LE to knee (chronic) ) Neurologic/Psych: no motor/sensory deficits (Unable to assess motor function 2/2 altered status. Able to ambulate with walker at baseline, per ), normal mood/affect (Flattened affect ), + pertinent finding (Lethargic, dysarthric. ) Skin: normal color, warm/dry, no rash Hospital Course ACUTE HYPOXIC AND HYPERCAPNIC RESPIRATORY FAILURE Oxygen saturation 66% at home prior to admission. ABG demonstrated PCO2 as high as 114. BiPAP used intermittently for ventilatory support. Spouse reinforced that patient does not wish to be intubated again under any circumstances. Received IV methylprednisolone and ipratropium/levalbuterol nebs with improvement. Transitioned to oral steroid therapy with prednisone; taper as able. Pulmonary consulted -appreciate input Clinically a lot better Does not require 2 step before discharge Will go to [facility] this afternoon PNEUMONIA Suspected aspiration pneumonia. At risk for MRSA pneumonia due to + MRSA screen. Fluoroquinolones not utilized due to delirium. Initially received IV vancomycin, ampicillin/sulbactam, doxycycline. Blood cultures negative.Stopped vancomycin. Continue ampicillin/sulbactam, doxycycline to complete 7-10 day course of therapy. Appreciate Speech Therapy recommendation Patient wants to continue with Regular diet Advised to precaution to prevent aspiration ENCEPHALOPATHY / DELIRIUM Probably secondary to infection/hypercapnia. IV haloperidol PRN with caution. Management of specific underlying problems as outlined above. Improved to baseline Avoid meds with anticholinergic side effects. RIGHT PLEURAL EFFUSION Right pleural effusion noted on chest x-ray. Pulmonary Medicine attempted thoracentesis, but effusion loculated and minimal fluid was aspirated. ELEVATED SERUM TROPONIN Likely nonspecific elevation secondary to pneumonia/respiratory failure. Doubt acute coronary syndrome. Remains asymptomatic PARKINSON'S DISEASE Advanced Parkinson's disease. Was NPO due to delirium and high aspiration risk and meds had to be held. Now back on usual regimen. Wants to continue regular food Best to avoid scopolamine patch due to earlier problems with delirium. No more Drooling Remains stable SUSPECTED ASPIRATION MOLD PREPARER consulted. Video fluoroscopic swallowing evaluation performed and demonstrated aspiration as detailed in report. Findings and implication discussed with patient and his . He enjoys eating and drinking. He understands and accepts the risks of continued oral intake. He does not want a feeding tube (it would not eliminate the risk of aspiration anyway). Continue aspiration precautions. VTE PROPHYLAXIS SQ enoxaparin. RESUSCITATION STATUS "Level 5" (DNR) as documented 08/06/17. DISPOSITION Anticipated need for skilled care or inpatient rehab. He has been at [facility] previously which is close to his home. Case Management consulted. PT / OT diego. Family Medicine follow-up with Dr. Miguel Angel Curran. Likely back to tomorrow Discussed with the Total time spent on discharge = 35 minutes This includes examination of the patient, discharge planning, medication reconciliation, and communication with other providers. Discharge Instructions Date of Service Jul 13, 2017. Admission Reason for Admission: Hypercapnic Respiratory Failure Discharge Discharge Diagnosis / Problem: Respiratory failure,Parkinson disease Discharge Goals Goal(s): Prevent Disease Progression Activity Recommendations Activity Level: Assistance Required Therapies: Physical Therapy, Occupational Therapy, Speech Therapy . Additional Information Patient informed of condition: Yes Advance Directives: No DNR: Yes Level of Care: Skilled Communicable Disease: No Prognosis: Stable Oxygen at (LPM): 2 liter/min via NC as needed Oliver Catheter: No Instructions / Follow-Up Instructions / Follow-Up Please take precaution to avoid fall Current Hospital Diet Patient's current hospital diet: AHA Diet (Heart Healthy) Discharge Diet Recommended Diet: AHA Diet (Heart Healthy) Pending Studies Studies pending at discharge: no Medical Emergencies . Who to Call and When: Medical Emergencies: If at any time you feel your situation is an emergency, please call 911 immediately. . Non-Emergent Contact Non-Emergency issues call your: Primary Care Provider . Past History Medical & Surgical History: (1) Altered mental status (2) Obstructive sleep apnea (3) Hypercapnic respiratory failure (4) Parkinson disease (5) BPH (benign prostatic hypertrophy) (6) History of kidney stones (7) Iron deficiency anemia (8) Venous insufficiency (9) HTN (hypertension) (10) GERD (gastroesophageal reflux disease) (11) S/P deep brain stimulator placement (12) H/O inguinal hernia repair (13) S/p tonsil surgery (14) H/O shoulder surgery (15) Hypotension . "Provider Documentation" section prepared by Haleigh Becker. . Ethnoarchaeologist Recommendations Ethnoarchaeologist Recommendations: In my clinical judgment this beneficiary meets acute admission criteria, established by CMS, that includes being hospitalized through two midnights. Core Measure Problem Core Measures: None <Electronically signed by Haleigh Becker M.D.> Additional Copies To Miugel Angel Curran D.O.
== END 2017-07-13 14:15 | DRG 177 ==
LOC: EDBD 10:40 → C.EDC 10:41 → C.2T 13:17 → ENRESERV 13:58 → C.MED 07-10 16:14
PROVIDERS: ADMIT Hospitalist; ATTEND Internal Medicine
PROC: 0W993ZZ Drainage of Right Pleural Cavity, Percutaneous Approach (ICD-10-PCS; principal; 2017-07-08)
DX: J69.0 Pneumonitis due to inhalation of food and vomit (principal); J96.01 Acute respiratory failure with hypoxia; J96.02 Acute respiratory failure with hypercapnia; G04.90 Encephalitis and encephalomyelitis, unspecified; E87.2 Acidosis; Z51.5 Encounter for palliative care; J90 Pleural effusion, not elsewhere classified; E66.2 Morbid (severe) obesity with alveolar hypoventilation; N40.0 Benign prostatic hyperplasia without lower urinary tract symptoms; E78.5 Hyperlipidemia, unspecified; K21.9 Gastro-esophageal reflux disease without esophagitis; I10 Essential (primary) hypertension; G20 Parkinson's disease; D50.9 Iron deficiency anemia, unspecified; Z87.891 Personal history of nicotine dependence; Z83.3 Family history of diabetes mellitus; Z80.42 Family history of malignant neoplasm of prostate; Z82.49 Family history of ischemic heart disease and other diseases of the circulatory system; Z84.1 Family history of disorders of kidney and ureter

== ENCOUNTER 2017-08-24 00:45 | Emergency (ER) | payer OTHER ==
[~2017-08-24 00:45] MED LIST changes: -CLCUDL PO; +CYAN10005 PO; +DXY100 PO; +FERR1TAB13 PO; +LCTX PO; +LISI10TA PO; -MLXC PO; +NIAC500T11 PO; +OMEG10007 PO; -OXYC10SO PO; +PRD10 PO; +PRLSR20 PO; -ROPI12TA PO; +ROPI1TAB PO; -VNCS250 PO
--- NOTE | 2017-08-24 00:53 | EMERGENCY ROOM VISIT NOTE ---
History Report prepared by Oma: Yair Marrero Under the Supervision of: Dr. Blair Quintero M.D. First contact with patient: 00:47 Stated Complaint: FLANK PAIN History of Present Illness The patient is a 67 year old male who presents to the Emergency Room with complaints of resolved right flank pain that began earlier today. He has a past medical history of Parkinson's disease and kidney stones. He is currently not experiencing any pain. Earlier, he described his pain as sudden onset radiating into his groin. He said it felt just like a kidney stone. He denies any shortness of breath or any other abnormal symptoms. Source of History: patient Onset: earlier today Position: other (Right flank) Symptom Intensity: minimal Quality: sharp Timing: resolved Associated Symptoms: No SOB Note: At the time of his pain, it was radiating into his groin. He denies any other symptoms. Review of Systems See HPI for pertinent positives & negatives. A total of 10 systems reviewed and were otherwise negative. Past Medical & Surgical Medical Problems: (1) BPH (benign prostatic hypertrophy) (2) Dyslipidemia (3) GERD (gastroesophageal reflux disease) (4) History of kidney stones (5) HTN (hypertension) (6) Hypercapnic respiratory failure (7) Iron deficiency anemia (8) Overactive bladder (9) Parkinson disease (10) Venous insufficiency Surgical Problems: (1) H/O inguinal hernia repair (2) H/O shoulder surgery (3) S/P deep brain stimulator placement (4) S/p tonsil surgery Family History Diabetes mellitus MOTHER FH: asthma FATHER FH: prostate cancer FATHER Hypertension FATHER SISTER Kidney disease Kidney stones Social History Smoking Status: Never Smoker Alcohol Use: none Marital Status: Housing Status: lives with family Current/Historical Medications Scheduled Carbidopa/Levodopa (Sinemet 25MG/100MG), 1.5 TAB PO 5XD Carbidopa/Levodopa (Sinemet Cr 25MG/100MG), 1 TAB PO HS Clonazepam (Klonopin), 1 MG PO HS Cyanocobalamin (Vitamin B-12), 1,500 MCG PO DAILY Ferrous Sulfate (Kp Ferrous Sulfate), 325 MG PO BID Fish Oil (Pioneer-3), 1,000 MG PO DAILY Lisinopril (Prinivil), 10 MG PO DAILY Metoprolol Tartrate (Lopressor) (Lopressor), 25 MG PO BID Niacin (Niacin), 500 MG PO DAILY Omeprazole (Prilosec), 20 MG PO DAILY Ropinirole (Requip), 4 MG PO QID Ropinirole Hydrochloride (Ropinirole Er), 1 TAB PO HS Scopolamine (Transderm-Scop), 1.5 MG TD Q72H Tamsulosin HCl (Tamsulosin HCl), 0.4 MG PO HS Allergies Coded Allergies: Sulindac (Verified Adverse Reaction, Intermediate, STOMACH IRRATION, 08/24) Physical Exam Vital Signs Date Time Temp Pulse Resp B/P (MAP) Pulse Ox O2 Delivery O2 Flow Rate FiO2 08/24/17 03:16 36.9 100 18 128/77 96 Room Air 08/24/17 03:14 36.9 08/24/17 01:50 92 18 140/88 96 Room Air 08/24/17 01:01 37.3 105 18 154/106 91 Room Air Physical Exam GENERAL: Patient is chronically unwell appearing and in no acute distress. Parkinson's findings. HEENT: No acute trauma, normocephalic atraumatic, mucous membranes moist, no nasal congestion, no scleral icterus. NECK: No stridor, no adenopathy, no meningismus, trachea is midline. LUNGS: No dyspnea. Clear to auscultation and equal bilaterally. No wheeze, no rhonchi. HEART: Regular rate and rhythm. No murmurs, rubs, gallops appreciated. ABDOMEN: Soft, nontender, bowel sounds positive, no masses appreciated, no peritonitis. BACK: No midline tenderness, no CVA tenderness EXTREMITIES: Normal motion all extremities, no cyanosis, no edema. NEUROLOGIC: Alert and answers questions, continuous tremor, no acute motor or sensory deficits, no focal weakness, cranial nerves grossly intact. SKIN: No rash, no jaundice, no diaphoresis. Medical Decision & Procedures Laboratory Results 08/24/17 00:08 Red Blood Count 5.47, Mean Corpuscular Volume 86.1, Mean Corpuscular Hemoglobin 29.1, Mean Corpuscular Hemoglobin Concent 33.8, Mean Platelet Volume 10.7, Neutrophils (%) (Auto) 72.0, Lymphocytes (%) (Auto) 11.8, Monocytes (%) (Auto) 12.5, Eosinophils (%) (Auto) 2.4, Basophils (%) (Auto) 0.2, Neutrophils # (Auto ) 9.42, Lymphocytes # (Auto) 1.55, Monocytes # (Auto) 1.64, Eosinophils # (Auto ) 0.32, Basophils # (Auto) 0.02 08/24/17 00:08 Test 08/24/17 00:08 08/24/17 00:56 White Blood Count 13.09 K/uL (4.8-10.8) Red Blood Count 5.47 M/uL (4.7-6.1) Hemoglobin 15.9 g/dL (14.0-18.0) Hematocrit 47.1 % (42-52) Mean Corpuscular Volume 86.1 fL (80-100) Mean Corpuscular Hemoglobin 29.1 pg (25-34) Mean Corpuscular Hemoglobin Concent 33.8 g/dl (32-36) Platelet Count 265 K/uL (130-400) Mean Platelet Volume 10.7 fL (7.4-10.4) Neutrophils (%) (Auto) 72.0 % Lymphocytes (%) (Auto) 11.8 % Monocytes (%) (Auto) 12.5 % Eosinophils (%) (Auto) 2.4 % Basophils (%) (Auto) 0.2 % Neutrophils # (Auto) 9.42 K/uL (1.4-6.5) Lymphocytes # (Auto) 1.55 K/uL (1.2-3.4) Monocytes # (Auto) 1.64 K/uL (0.11-0.59) Eosinophils # (Auto) 0.32 K/uL (0-0.5) Basophils # (Auto) 0.02 K/uL (0-0.2) RDW Standard Deviation 50.0 fL (36.4-46.3) RDW Coefficient of Variation 15.8 % (11.5-14.5) Immature Granulocyte % (Auto) 1.1 % Immature Granulocyte # (Auto) 0.14 K/uL (0.00-0.02) Anion Gap 6.0 mmol/L (3-11) Estimated GFR () 92.2 Estimated GFR (Non- 79.6 BUN/Creatinine Ratio 20.7 (10-20) Calcium Level 8.4 mg/dl (8.5-10.1) Total Bilirubin 0.4 mg/dl (0.2-1) Direct Bilirubin mg/dl (0-0.2) Aspartate Amino Transf (AST/SGOT) 13 U/L (15-37) Alanine Aminotransferase (ALT/SGPT) 12 U/L (12-78) Alkaline Phosphatase 77 U/L (45-117) Total Protein 7.2 gm/dl (6.4-8.2) Albumin 3.5 gm/dl (3.4-5.0) Lipase 112 U/L (73-393) Chemistry Specimen Hemolysis Urine Color YELLOW Urine Appearance CLEAR (CLEAR) Urine pH 5.0 (4.5-7.5) Urine Specific [place] 1.024 (1.000-1.030) Urine Protein NEG (NEG) Urine Glucose (UA) NEG (NEG) Urine Ketones NEG (NEG) Urine Occult Blood NEG (NEG) Urine Nitrite NEG (NEG) Urine Bilirubin NEG (NEG) Urine Urobilinogen NEG (NEG) Urine Leukocyte Esterase NEG (NEG) Urine WBC (Auto) 1-5 /hpf (0-5) Urine RBC (Auto) 0-4 /hpf (0-4) Urine Hyaline Casts (Auto) 0 /lpf (0-5) Urine Epithelial Cells (Auto) 5-10 /lpf (0-5) Urine Bacteria (Auto) NEG (NEG) Medications Administered Medications (Trade) Dose Ordered Sig/Luz Route Start Time Stop Time Status Last Admin Dose Admin Sodium Chloride 500 ml @ 999 mls/hr Q31M STAT IV 08/24/17 01:51 08/24/17 02:21 DC 08/24/17 01:51 999 MLS/HR ED Course 0047: The patient was evaluated in room A11B. A complete history and physical exam was performed. Medical Decision Differential: Renal Colic, Pyelonephritis, Hydronephrosis, Appendicitis, Diverticulitis, Retroperitoneal Bleed/Infection, Aortic Pathology, MSK, Neurologic Pathology, amongst other pathologies entertained. 67 yr old male arrives for evaluation of right flank pain at home which resolved after dose of morphine. Now pain free and feeling much better. He has significant parkinsons, periodically uses [place] O2 and is quite limited in movements. Denies any current symptoms. Labs remarkable for mildly elevated WBC and UA without significant blood nor infection. As wbc elevation in setting of right flank pain did seem reasonable doing CT abdo which was unremarkable. He is breathing comfortably, no distress and wants to go home. He does not want to be in department. I noted some mild erythema left lower leg which notes has been there before and that if worsening will see us or PCP. Reviewed symptoms requiring RTED. Medication Reconcilliation Current Medication List: was personally reviewed by me Impression Primary Impression: Right flank pain Scribe Attestation The scribe's documentation has been prepared under my direction and personally reviewed by me in its entirety. I confirm that the note above accurately reflects all work, treatment, procedures, and medical decision making performed by me. Departure Information Dispostion Home / Self-Care Referrals Miguel Angel Curran D.Glenn. (PCP) Additional Instructions Your labs and CT scan revealed no acute findings other than a slightly elevated White Blood Cell count. This can be seen in pain, but also can be due to infection. There is no evidence of infection in your abdomen or urine. Return immediately if fevers, vomiting, increasing pain, cough or other concerns. We are always here to help. Follow up with your primary care provider for repeat check. You have been examined and treated today on an emergency basis only. This is not a substitute for, or an effort to provide, complete comprehensive medical care. It is impossible to recognize and treat all injuries or illnesses in a single emergency department visit. It is therefore important that you follow up closely with your Primary Physician. Call as soon as possible for an appointment so you can review all labs, imaging and other testing that you had. Return to Emergency Department, call 911 or seek immediate medical attention if you feel your symptoms are worsening.
[2017-08-24 01:01] LABS: BASO % 0.2 %; BASO ABS # 0.02 K/uL (0-0.2); COMPLETE YES; EOS % 2.4 %; HEMATOCRIT 47.1 % (42-52); IG% 1.1 %; LYMPH % 11.8 %; LYMPH ABS # 1.55 K/uL (1.2-3.4); MEAN CELL VOLUME 86.1 fL (80-100); MEAN CORPUSCULAR HEMOGLOBIN 29.1 pg (25-34); MEAN CORPUSCULAR HGB CONC 33.8 g/dl (32-36); MEAN PLATELET VOLUME 10.7 fL (7.4-10.4); MONO % 12.5 %; PLATELET COUNT 265 K/uL (130-400); RED BLOOD COUNT 5.47 M/uL (4.7-6.1); WHITE BLOOD COUNT 13.09 K/uL (4.8-10.8)
[2017-08-24 01:11] LABS: URINE APPEARANCE CLEAR (CLEAR); URINE BILIRUBIN NEG (NEG); URINE COLOR YELLOW; URINE NITRITE NEG (NEG); URINE SPECIFIC GRAVITY 1.024 (1.000-1.030); UROBILINOGEN NEG (NEG); ZZUR CULT IF INDIC CLEAN CATCH NO
[2017-08-24 01:18] LABS: MANUAL MICROSCOPIC REQUIRED? NO; REVIEW REQ? NO
[2017-08-24 01:45] LABS: BLOOD UREA NITROGEN 20 mg/dl (7-18); BUN/CREATININE RATIO 20.7 (10-20); CALCIUM 8.4 mg/dl (8.5-10.1); CARBON DIOXIDE 30 mmol/L (21-32); CHLORIDE 101 mmol/L (98-107); CREATININE 0.99 mg/dl (0.60-1.40); GLUCOSE 109 mg/dl (70-99); POTASSIUM 3.9 mmol/L (3.5-5.1); SODIUM 137 mmol/L (136-145)
[2017-08-24 01:46] LABS: ALKALINE PHOSPHATASE 77 U/L (45-117); ALT/SGPT 12 U/L (12-78); AST/SGOT 13 U/L (15-37)
[2017-08-24] MEDS ORDERED: SODIUM CHLORIDE 0.9% 500ML 500 ML IV STA (01:51)
[2017-08-24] MEDS ORDERED: OPTIRAY 320 IV PRN (02:00)
[2017-08-24 03:16] VITALS: BP 128/77; PULSE 100; TEMP 36.9; O2SAT 96
--- NOTE | 2017-08-24 07:31 | DIAGNOSTIC IMAGING REPORT ---
ABDOMEN AND PELVIS CT WITH IV CONTRAST CT DOSE: 1206.95 mGy.cm HISTORY: right flank pain, elevated WBC TECHNIQUE: Multiaxial CT images of the abdomen and pelvis were performed following the use of intravenous contrast. A dose lowering technique was utilized adhering to the principles of ALARA. COMPARISON STUDY: Abdomen and pelvis CT 12/08/2016. FINDINGS: Elevated right hemidiaphragm. Left basilar linear densities favor subsegmental atelectasis. No pneumoperitoneum. No pneumatosis. No fractures within the visualized osseous structures. Hiatus hernia is again noted. The visualized liver, pancreas, spleen, gallbladder, and adrenal glands are unremarkable. Punctate stone within the lower pole the left kidney. No ureteral stones. No hydronephrosis. No retroperitoneal lymphadenopathy. Small diverticulum at the second portion of the duodenum. A 1 cm diverticulum along the left side of the bladder. No bladder wall thickening. Colonic diverticulosis. No bowel wall thickening or obstruction. Normal appendix. A 10 cm cyst within the lower pole the left kidney. A few additional bilateral subcentimeter renal hypodense lesions are too small to characterize but statistically represent cysts. IMPRESSION: 1. No bowel wall thickening or obstruction. 2. Colonic diverticulosis. 3. Normal appendix. 4. Left-sided nephrolithiasis. No hydronephrosis. 5. Additional stable findings as described above. Electronically signed by: Sanket Kilpatrick M.D. 08/24/2017 7:30 AM Dictated Date/Time: 08/24/2017 7:24 AM
== END 2017-08-24 03:23 | disposition home or self-care (01) ==
LOC: EDBD 00:45 → C.EDA 00:46
DX: R10.9 Unspecified abdominal pain (principal); G20 Parkinson's disease; I10 Essential (primary) hypertension; E78.5 Hyperlipidemia, unspecified; N40.0 Benign prostatic hyperplasia without lower urinary tract symptoms; K21.9 Gastro-esophageal reflux disease without esophagitis; Z87.442 Personal history of urinary calculi; Z98.890 Other specified postprocedural states; Z83.3 Family history of diabetes mellitus; Z82.49 Family history of ischemic heart disease and other diseases of the circulatory system; Z82.5 Family history of asthma and other chronic lower respiratory diseases; Z84.1 Family history of disorders of kidney and ureter; Z80.42 Family history of malignant neoplasm of prostate; Z79.899 Other long term (current) drug therapy

== ENCOUNTER 2018-04-20 22:30 | Emergency (ER) | payer OTHER ==
[~2018-04-20 22:30] MED LIST changes: -CLON0.5T3 PO; +CLON0.5T9 PO; -DXY100 PO; -LCTX PO; -PRD10 PO
[2018-04-20 22:33] VITALS: TEMP 36.9; Ht 171.5 cm
[2018-04-20 23:31] LABS: BASO % 0.2 %; BASO ABS # 0.01 K/uL (0-0.2); EOS % 2.5 %; EOS ABS # 0.15 K/uL (0-0.5); HEMOGLOBIN 14.7 g/dL (14.0-18.0); IG# 0.01 K/uL (0.00-0.02); LYMPH % 18.1 %; MEAN CELL VOLUME 88.5 fL (80-100); MEAN CORPUSCULAR HEMOGLOBIN 29.6 pg (25-34); MEAN CORPUSCULAR HGB CONC 33.4 g/dl (32-36); MEAN PLATELET VOLUME 9.9 fL (7.4-10.4); MONO % 11.4 %; MONO ABS # 0.69 K/uL (0.11-0.59); NEUT % 67.6 %; NEUT ABS # 4.11 K/uL (1.4-6.5); PLATELET COUNT 220 K/uL (130-400); RED CELL DISTRIBUTION WIDTH CV 14.9 % (11.5-14.5); RED CELL DISTRIBUTION WIDTH SD 48.2 fL (36.4-46.3); WHITE BLOOD COUNT 6.07 K/uL (4.8-10.8)
[2018-04-20] MEDS ORDERED: CLON1TAB10 PO (23:37)
[2018-04-20 23:45] LABS: PTT PATIENT 26.2 SECONDS (21.0-31.0)
[2018-04-20 23:59] LABS: ALBUMIN 3.8 gm/dl (3.4-5.0); ALKALINE PHOSPHATASE 72 U/L (45-117); ALT/SGPT 11 U/L (12-78); AST/SGOT 17 U/L (15-37); BLOOD UREA NITROGEN 13 mg/dl (7-18); CALCIUM 8.9 mg/dl (8.5-10.1); CARBON DIOXIDE 30 mmol/L (21-32); CREATININE 0.91 mg/dl (0.60-1.40); GLUCOSE 97 mg/dl (70-99); LIPASE 102 U/L (73-393); POTASSIUM 3.9 mmol/L (3.5-5.1); SODIUM 138 mmol/L (136-145); TOTAL PROTEIN 7.3 gm/dl (6.4-8.2)
[2018-04-21] MEDS ORDERED: CEPHALEXIN 500MG HOME PACK 1 EA BTL PO ONE (01:45)
[2018-04-21] MEDS ORDERED: CEFTRIAXONE SOD INJ 1 GM ADDVIAL IV STA (01:45)
[2018-04-21] MEDS ORDERED: CEPH500C PO (01:50)
[2018-04-21 02:18] VITALS: BP 164/108; PULSE 60; O2SAT 96
--- NOTE | 2018-04-21 02:28 | EMERGENCY ROOM VISIT NOTE ---
History Report prepared by Oma: Bharath Reddy Under the Supervision of: Dr. Hugo Evans M.D. First contact with patient: 22:57 Chief Complaint: HYPERTENSION Stated Complaint: HIGH BLOOD PRESSURE History of Present Illness The patient is a 67 year old male who presents to the Emergency Room with complaints of an elevated blood pressure of 201/135 measured at 21:36 tonight, and waxing and waning blood pressure throughout the day. Family reports that the patient had his blood pressure taken at 11:00 this morning by his physical therapist, which showed a pressure of 95/67. She states that the patient's therapist called his home health nurse, who also measured it to be low. The patient reports that he was not lightheaded at this time. He had no ill feelings. She reports that the patient's pressure was measured throughout the day, and was found to be 159/141 at 14:00, 133/97 at 16:00, 153/105 at 18:00, and 201/135 at 21:36. The patient reports that he currently feels no different from baseline with the exception of experiencing urinary frequency. He notes dizziness with standing up and difficulty breathing that are both no different from baseline. Family states that he has a good appetite. She notes swelling to the patient's left leg, but states that this is chronic. The patient reports that he took Metoprol at 15:00 today. Pt denies LOC, headache, fevers, chills, diaphoresis, visual changes, neck pain , chest pain, nausea, vomiting, abdominal pain, back pain, melena, hematochezia , numbness, weakness, lymphadenopathy, rash, or other complaints. Source of History: patient Onset: 21:36 Position: other (global) Symptom Intensity: 201/135 Quality: other (elevated blood pressure) Timing: waxes/wanes Associated Symptoms: + urinary symptoms (frequency) Review of Systems See HPI for pertinent positives and negatives. A total of ten systems were reviewed and were otherwise negative. Past Medical & Surgical Medical Problems: (1) BPH (benign prostatic hypertrophy) (2) Dyslipidemia (3) GERD (gastroesophageal reflux disease) (4) History of kidney stones (5) HTN (hypertension) (6) Hypercapnic respiratory failure (7) Iron deficiency anemia (8) Overactive bladder (9) Parkinson disease (10) Venous insufficiency Surgical Problems: (1) H/O inguinal hernia repair (2) H/O shoulder surgery (3) S/P deep brain stimulator placement (4) S/p tonsil surgery Family History Diabetes mellitus MOTHER FH: asthma FATHER FH: prostate cancer FATHER Hypertension FATHER SISTER Kidney disease Kidney stones Social History Smoking Status: Former Smoker Alcohol Use: none Marital Status: Housing Status: lives with family Current/Historical Medications Scheduled Carbidopa/Levodopa (Sinemet 25MG/100MG), 1.5 TAB PO 5XD Cephalexin Monohydrate (Keflex), 500 MG PO QID Clonazepam (Klonopin), 1 MG PO HS Cyanocobalamin (Vitamin B-12), 1,500 MCG PO DAILY Ferrous Sulfate (Kp Ferrous Sulfate), 325 MG PO BID Lisinopril (Prinivil), 10 MG PO DAILY Metoprolol Tartrate (Lopressor) (Lopressor), 25 MG PO BID Omeprazole (Prilosec), 20 MG PO DAILY Ropinirole (Requip), 4 MG PO QID Ropinirole Hydrochloride (Ropinirole Er), 1 TAB PO HS Tamsulosin HCl (Tamsulosin HCl), 0.4 MG PO HS Allergies Coded Allergies: Sulindac (Verified Adverse Reaction, Intermediate, STOMACH IRRATION, 08/24) Physical Exam Vital Signs Date Time Temp Pulse Resp B/P (MAP) Pulse Ox O2 Delivery O2 Flow Rate FiO2 04/21/18 01:36 64 24 04/21/18 01:31 169/87 04/21/18 01:06 67 27 04/21/18 01:00 151/97 04/21/18 00:36 65 18 04/21/18 00:31 142/89 04/21/18 00:30 60 22 04/21/18 00:01 04/21/18 00:01 69 18 155/100 04/21/18 00:00 65 30 04/20/18 23:39 164/119 04/20/18 23:37 153/87 04/20/18 23:37 61 20 153/87 94 69 148/121 83 164/119 04/20/18 23:31 168/110 04/20/18 23:30 64 27 04/20/18 23:28 66 04/20/18 23:19 175/106 04/20/18 22:33 36.9 65 20 172/92 95 Room Air Physical Exam GENERAL: Awake, alert, well-appearing, in no distress HENT: Normocephalic, atraumatic. Oropharynx unremarkable. EYES: Normal conjunctiva. Sclera non-icteric. NECK: Supple. No nuchal rigidity. FROM. No masses. RESPIRATORY: Clear to auscultation. No wheezes. No rales. Normal respiratory effort. CARDIAC: Normal rate. Normal rhythm. No murmurs. No rubs. Extremities warm and well perfused. Pulses equal. No JVD. GI: Soft, non-distended. No tenderness to palpation. No rebound or guarding. No masses. RECTAL: Deferred. MUSCULOSKELETAL: Atraumatic. Chest examination reveals no tenderness. The back is symmetrical on inspection without obvious abnormality. There is no CVA tenderness to palpation. No joint edema. LOWER EXTREMITIES: Calves are non-tender. Trace edema on the right leg, 1+ edema on the left (patient states the left leg is chronically larger than the right). No discoloration. NEURO: Normal sensorium. No sensory or motor deficits noted. Speech is soft. Masked facies of Parkinson's SKIN: No rash or jaundice noted. Medical Decision & Procedures ER Provider Diagnostic Interpretation: Radiology results as stated below per my review and radiologist interpretation: Chest x-ray. Findings: A chest x-ray was performed and revealed no pneumothorax , effusion, infiltrate, pulmonary edema, free air under the diaphragm, or wide mediastinum. Laboratory Results 04/20/18 23:15 Red Blood Count 4.97, Mean Corpuscular Volume 88.5, Mean Corpuscular Hemoglobin 29.6, Mean Corpuscular Hemoglobin Concent 33.4, Mean Platelet Volume 9.9, Neutrophils (%) (Auto) 67.6, Lymphocytes (%) (Auto) 18.1, Monocytes (%) (Auto) 11.4, Eosinophils (%) (Auto) 2.5, Basophils (%) (Auto) 0.2, Neutrophils # (Auto ) 4.11, Lymphocytes # (Auto) 1.10, Monocytes # (Auto) 0.69, Eosinophils # (Auto ) 0.15, Basophils # (Auto) 0.01 04/20/18 23:15 Test 04/20/18 23:15 04/21/18 00:40 White Blood Count 6.07 K/uL (4.8-10.8) Red Blood Count 4.97 M/uL (4.7-6.1) Hemoglobin 14.7 g/dL (14.0-18.0) Hematocrit 44.0 % (42-52) Mean Corpuscular Volume 88.5 fL (80-100) Mean Corpuscular Hemoglobin 29.6 pg (25-34) Mean Corpuscular Hemoglobin Concent 33.4 g/dl (32-36) Platelet Count 220 K/uL (130-400) Mean Platelet Volume 9.9 fL (7.4-10.4) Neutrophils (%) (Auto) 67.6 % Lymphocytes (%) (Auto) 18.1 % Monocytes (%) (Auto) 11.4 % Eosinophils (%) (Auto) 2.5 % Basophils (%) (Auto) 0.2 % Neutrophils # (Auto) 4.11 K/uL (1.4-6.5) Lymphocytes # (Auto) 1.10 K/uL (1.2-3.4) Monocytes # (Auto) 0.69 K/uL (0.11-0.59) Eosinophils # (Auto) 0.15 K/uL (0-0.5) Basophils # (Auto) 0.01 K/uL (0-0.2) RDW Standard Deviation 48.2 fL (36.4-46.3) RDW Coefficient of Variation 14.9 % (11.5-14.5) Immature Granulocyte % (Auto) 0.2 % Immature Granulocyte # (Auto) 0.01 K/uL (0.00-0.02) Prothrombin Time 10.6 SECONDS (9.0-12.0) Prothromb Time International Ratio 1.0 (0.9-1.1) Activated Partial Thromboplast Time 26.2 SECONDS (21.0-31.0) Partial Thromboplastin Ratio 1.0 Anion Gap 7.0 mmol/L (3-11) Estimated GFR () 102.1 Estimated GFR (Non- 88.1 BUN/Creatinine Ratio 13.7 (10-20) Calcium Level 8.9 mg/dl (8.5-10.1) Magnesium Level 2.2 mg/dl (1.8-2.4) Total Bilirubin 0.6 mg/dl (0.2-1) Direct Bilirubin 0.1 mg/dl (0-0.2) Aspartate Amino Transf (AST/SGOT) 17 U/L (15-37) Alanine Aminotransferase (ALT/SGPT) 11 U/L (12-78) Alkaline Phosphatase 72 U/L (45-117) Troponin I < 0.015 ng/ml (0-0.045) Total Protein 7.3 gm/dl (6.4-8.2) Albumin 3.8 gm/dl (3.4-5.0) Lipase 102 U/L (73-393) Thyroid Stimulating Hormone (TSH) 1.300 uIu/ml (0.300-4.500) Urine Color YELLOW Urine Appearance CLEAR (CLEAR) Urine pH 7.5 (4.5-7.5) Urine Specific [place] 1.005 (1.000-1.030) Urine Protein NEG (NEG) Urine Glucose (UA) NEG (NEG) Urine Ketones NEG (NEG) Urine Occult Blood NEG (NEG) Urine Nitrite NEG (NEG) Urine Bilirubin NEG (NEG) Urine Urobilinogen NEG (NEG) Urine Leukocyte Esterase MODERATE (NEG) Urine WBC (Auto) >30 /hpf (0-5) Urine RBC (Auto) 0-4 /hpf (0-4) Urine Hyaline Casts (Auto) 0 /lpf (0-5) Urine Epithelial Cells (Auto) 0-5 /lpf (0-5) Urine Bacteria (Auto) 1+ (NEG) Laboratory results reviewed by me Medications Administered Medications (Trade) Dose Ordered Sig/Luz Route Start Time Stop Time Status Last Admin Dose Admin Cephalexin Monohydrate (Keflex 500MG Home Pack) 1 homepack NOW ONCE PO 04/21/18 01:45 04/21/18 01:46 DC 04/21/18 01:51 1 HOMEPACK Ceftriaxone Sodium (Rocephin Inj) 1 gm NOW STAT IV 04/21/18 01:45 04/21/18 01:46 DC 04/21/18 01:51 1 GM ECG Per My Interpretation Indication: other (elevated blood pressure) Rate (beats per minute): 86 Rhythm: other (regular rhythm) Findings: other (Poor baseline data secondary to interference of deep brain stimulator. No obvious ectopy.) ED Course 2311: The patient was evaluated in room A4B. A complete history and physical exam was performed. 0054: I updated with the patient. He states he is currently feeling okay. 0132: I reevaluated the patient. Discussed results and discharge instructions: He verbalized understanding and agreement. The patient is ready for discharge. 0145: Ordered Rocephin 1 gm IV, Keflex 500 MG 1 homepack PO. Medical Decision Prior records/ancillary studies reviewed and summarized above. Nursing notes reviewed and agree them. Additional history obtained from the patient's . The patient's history was concerning for fluctuating blood pressures weakness. Differential diagnosis: Etiologies such as hypertension, hypertensive emergency, metabolic, infection, hypo/hyperglycemia, electrolyte abnormalities, cardiac sources, intracerebral event, toxicologic, neurologic, as well as others were entertained. Physical examination: As above. The patient was hypertensive but this was getting better without intervention. He was not orthostatic. He had a benign abdomen. He has some lower extremity edema but the states this is chronic and unchanged. The patient agrees. ER treatment provided: IV Lock IV Rocephin Keflex home pack On reassessment the patient felt better. Diagnostics interpretation by me: ECG: Difficult to interpret due to his brain stimulator. There was a regular rhythm. No ectopy noted. Patient was not having any chest pain. The labs revealed unremarkable laboratory findings except his urinalysis was concerning for bacteria and pyuria. Imaging studies: Chest x-ray as above Patient is doing well. On detailed history he did note some urinary frequency. He has some bacteria and pyuria noted. He has been hypertensive all day today except for 1 episode. He was asymptomatic at that time. He is not orthostatic. He is without complaints. I discussed treatment for possible UTI. He was given a dose of Rocephin here and will be prescribed Keflex. The patient and feel comfortable with going home and following up as an outpatient. They were advised if he worsens in any way that he would need to be brought back to the emergency department for reevaluation. The patient and feel very comfortable with this plan. I gave my usual and customary discussion regarding this issue. By the evaluation outlined above other emergent etiologies such as those listed in the differential, as well as others, were deemed relatively unlikely. The patient was educated about the findings as listed above. All questions were answered and the patient was pleased with the treatment. Return instructions were outlined and the patient was discharged in stable condition. The patient was referred to his PCP for follow-up for a recheck of the current condition. Medication Reconcilliation Current Medication List: was personally reviewed by me Blood Pressure Screening Patient's blood pressure: Elevated blood pressure Blood pressure disposition: Referred to PCP Impression Primary Impression: HTN (hypertension) Additional Impression: UTI (urinary tract infection) Scribe Attestation The scribe's documentation has been prepared under my direction and personally reviewed by me in its entirety. I confirm that the note above accurately reflects all work, treatment, procedures, and medical decision making performed by me. Departure Information Dispostion Home / Self-Care Prescriptions Cephalexin Monohydrate (Keflex) 500 Mg Cap 500 MG PO QID, #24 CAP Prov: Hugo Evans MD 04/21/18 Referrals Miguel Angel Curran, D.Tom (PCP) Patient Instructions [facility] Additional Instructions Cephalexin(Keflex) 500mg: Take one pill four times daily for 7 days for your urine infection. All antibiotics can cause diarrhea. If this occurs and you feel worse or it does not resolve in 1-2 days follow up with your doctor or return to the Emergency Department as this could be signs of serious underlying problems. Any medication can cause an allergic reaction, stop the pills immediately and return to the ER for rash, hives, breathing difficulties, or swelling. Ibuprofen(Motrin, Advil) may be used for fever or pain. Use 600mg every six hours as needed. Take with food. Avoid using more than 2400mg in a 24 hour period. Do not use 2400mg per day for more than three consecutive days without physician direction. Prolonged inappropriate use can lead to stomach upset or ulcers. (AND/OR) Acetaminophen(Tylenol) may be used for fever or pain. Use 1000mg every six hours as needed. Avoid using more than 4000mg in a 24 hour period. Rest and drink plenty of fluids. Continue current medications. Return to the ER immediately for abdominal pain, back pain, vomiting, fevers, back or flank pain, blood pressure problems, lightheadedness, passing out, worsening of your condition, or as needed. Follow up with your primary physician first thing next week for a recheck of the current condition. Problem Qualifiers
--- NOTE | 2018-04-21 07:02 | DIAGNOSTIC IMAGING REPORT ---
CHEST ONE VIEW PORTABLE CLINICAL HISTORY: 67 years-old Male presenting with EVALUATE WEAKNESS. TECHNIQUE: Portable upright AP view of the chest was obtained. COMPARISON: 07/09/2017. FINDINGS: An implanted stimulator device projects over the left hemithorax. Cardiomediastinal silhouette normal. Prominence of Central pulmonary vasculature. Mildly low lung volumes. Minimal opacity at the left lung base. It is difficult to exclude trace pleural effusions. No pneumothorax. Right shoulder arthroplasty. Degenerative changes of the left glenohumeral joint. Suspected hiatal hernia. IMPRESSION: 1. Left basilar opacity. This may represent infection or aspiration. Less likely this may represent asymmetric pulmonary edema. Dedicated PA and lateral views recommended. 2. Findings also suggest volume overload. Electronically signed by: Michael Bailey M.D. 04/21/2018 7:00 AM Dictated Date/Time: 04/21/2018 6:58 AM
== END 2018-04-21 02:19 | disposition home or self-care (01) ==
LOC: C.EDB 22:31 → C.EDA 04-21 02:19
DX: I10 Essential (primary) hypertension (principal); N39.0 Urinary tract infection, site not specified; N40.0 Benign prostatic hyperplasia without lower urinary tract symptoms; E78.5 Hyperlipidemia, unspecified; K21.9 Gastro-esophageal reflux disease without esophagitis; Z87.442 Personal history of urinary calculi; N32.81 Overactive bladder; Z83.3 Family history of diabetes mellitus; Z80.42 Family history of malignant neoplasm of prostate; Z82.49 Family history of ischemic heart disease and other diseases of the circulatory system; Z84.1 Family history of disorders of kidney and ureter; Z82.5 Family history of asthma and other chronic lower respiratory diseases; Z87.891 Personal history of nicotine dependence; Z79.899 Other long term (current) drug therapy; Z88.8 Allergy status to other drugs, medicaments and biological substances

== ENCOUNTER 2020-01-21 04:39 | Inpatient (IN) ==
[2020-01-21] MEDS ORDERED: SODIUM CHLORIDE 0.9% 1000ML 1,000 ML IV SCH (05:00)
--- NOTE | 2020-01-21 05:04 | Emergency Department Note ---
History of Present Illness General Chief complaint: Shortness of Breath/Dyspnea Stated complaint: breathing difficulty Time Seen by Provider: 01/21/20 04:41 History of Present Illness This is a 69-year-old male presenting to the emergency department for evaluation of worsening shortness of breath symptoms over the past 1 day. The patient arrives via ambulance from home where his is the primary caregiver. The patient's reports that he has a history of Parkinson's disease and this has been causing him breathing difficulties throughout the years, including intubation and extubation in February 2017. His does have a pulse ox at home, and normally he is in the 90s. When he does go low she will put him on nasal cannula oxygen, however tonight his oxygen dipped into the mid 80s. The patient has not had fevers or chills. He has baseline ambulatory dysfunction because of the Parkinson's, and has not left the house except maybe twice in the past 2 weeks. He has not had any fever or chills. No abdominal pain is reported. The patient did start a rescue pack of amoxicillin and prednisone yesterday. Evidently the patient was more lethargic than normal tonight. Home Medications Home Medications Medication Instructions Recorded Confirmed Type albuterol sulfate 2.5 mg INHALATION UD PRN 01/21/20 01/21/20 History carbidopa-levodopa 1 tab PO HS 01/21/20 01/21/20 History carbidopa-levodopa 1.5 tab PO 6XD 01/21/20 01/21/20 History cyanocobalamin (vitamin B-12) 1,500 mcg PO DAILY 01/21/20 01/21/20 History ferrous sulfate 325 mg PO BID 01/21/20 01/21/20 History fluticasone propionate 2 spray INTRANASAL DAILY 01/21/20 01/21/20 History furosemide 20 mg PO DAILY 01/21/20 01/21/20 History hydrocortisone [Proctosol HC] 1 applic [place] BID PRN 01/21/20 01/21/20 History lisinopril 10 mg PO DAILY 01/21/20 01/21/20 History metoprolol tartrate 25 mg PO BID 01/21/20 01/21/20 History omeprazole 20 mg PO QAM 01/21/20 01/21/20 History prednisone 40 mg PO DAILY PRN 01/21/20 01/21/20 History ropinirole 4 mg PO QID 01/21/20 01/21/20 History ropinirole 12 mg PO HS 01/21/20 01/21/20 History sildenafil 100 mg PO DAILY PRN 01/21/20 01/21/20 History sodium chloride [Saline Nasal Mist] 1 spray INTRANASAL DAILY PRN 01/21/20 01/21/20 History tamsulosin 0.4 mg PO HS 01/21/20 01/21/20 History trazodone 50 mg PO HS 01/21/20 01/21/20 History triamcinolone acetonide 1 applic TOPICAL BID 01/21/20 01/21/20 History Allergies Allergy/AdvReac Type Severity Reaction Status Date / Time sulindac AdvReac Intermediate STOMACH Verified 01/21/20 05:28 IRRATION Past Med/Surg History Medical History (Updated 01/21/20 @ 06:55 by Maurice Ayers PA-C) History of kidney stones (Chronic) HTN (hypertension) (Chronic) Hypercapnic respiratory failure Parkinson disease (Chronic) Surgical History (Updated 01/21/20 @ 05:03 by Maurice Ayers PA-C) H/O inguinal hernia repair (Chronic) H/O shoulder surgery (Chronic) S/P deep brain stimulator placement (Chronic) Social History Feels Safe at Home: Yes Smoking Status: Former smoker Review of Systems A total of 10 systems reviewed and were otherwise negative Physical Exam Vital Signs Vital Signs - 24 hr 01/21/20 04:49 01/21/20 05:00 01/21/20 05:01 Temperature 37.3 C Temperature Source Oral Pulse Rate 71 77 Pulse Rate [Right Finger] Pulse Rate from SpO2 Sensor 76 Pulse Rhythm Regular Pulse Strength Normal Respiratory Rate 24 23 Respiratory Effort / Characteristics Non-Labored Spontaneous Respiratory Depth Normal Respiratory Pattern Regular Blood Pressure 135/79 135/79 Blood Pressure Mean 97 93 Blood Pressure Position Lying Pulse Oximetry 87 L 100 100 Oxygen Delivery Method Room Air Nasal Cannula Nasal Cannula Oxygen Flow Rate 6 5 Sepsis Recent Fever Within 48 Hours No Sepsis Action Taken by Nursing No Action Required 01/21/20 05:02 01/21/20 05:30 01/21/20 06:00 Temperature Temperature Source Pulse Rate 80 77 Pulse Rate [Right Finger] Pulse Rate from SpO2 Sensor 81 82 Pulse Rhythm Pulse Strength Respiratory Rate 23 26 H 32 H Respiratory Effort / Characteristics Non-Labored Spontaneous Respiratory Depth Normal Respiratory Pattern Regular Blood Pressure 122/67 115/70 Blood Pressure Mean 90 81 Blood Pressure Position Pulse Oximetry 97 100 99 Oxygen Delivery Method Nasal Cannula Nasal Cannula Nasal Cannula Oxygen Flow Rate 5 3 3 Sepsis Recent Fever Within 48 Hours Sepsis Action Taken by Nursing 01/21/20 06:12 Temperature Temperature Source Pulse Rate Pulse Rate [Right Finger] 80 Pulse Rate from SpO2 Sensor Pulse Rhythm Pulse Strength Respiratory Rate 26 H Respiratory Effort / Characteristics Non-Labored Respiratory Depth Respiratory Pattern Blood Pressure Blood Pressure Mean Blood Pressure Position Pulse Oximetry 99 Oxygen Delivery Method Nasal Cannula Oxygen Flow Rate 3.5 Sepsis Recent Fever Within 48 Hours Sepsis Action Taken by Nursing VITALS: Vitals are noted on the nurse's note and reviewed by myself. Vital signs with hypoxia GENERAL: Chronically ill-appearing white male who is distinctly wheezing upon my arrival into the room HEAD: Normocephalic atraumatic. NECK: Supple without nuchal rigidity. No lymphadenopathy. No thyromegaly. Cervical spine is nontender. HEART: Regular rate and rhythm LUNGS: Scattered wheezing and rhonchi throughout ABDOMEN: Positive normal bowel sounds x 4. Soft, nontender, without masses or organomegaly. No guarding or rebound tenderness. MUSCULOSKELETAL: Erythema and edema to the bilateral lower extremities. Chronic wounds are noted to the bilateral legs. NEURO: Patient was alert and oriented to person place and time. Course Administered Medications Discontinued Medications Albuterol (Duoneb) 3 ml NEB NOW STA Stop: 01/21/20 05:54 Last Admin: 01/21/20 06:10 Dose: 3 ml Documented by: [id number] Sodium Chloride (Nss 1000ml) 1,000 mls @ 125 mls/hr IV .Q8H [facility] Stop: 02/20/20 04:59 Last Admin: 01/21/20 06:46 Dose: Not Given Documented by: [id number] Methylprednisolone (Solumedrol) 40 mg IV NOW STA Stop: 01/21/20 06:00 Last Admin: 01/21/20 06:42 Dose: 40 mg Documented by: [id number] Critical Care Time I have personally spent greater than 32 minutes of critical care time in the direct management of this patient. This includes bedside care, interpretation of diagnostic studies, and testing, discussion with consultants, patient, and family members, and other required patient management activities. This 32 minutes is in excess of all separately billable procedures. Medical Decision Making Differential Diagnosis Differential diagnosis: Etiologies such as infections, reactive airway disease, COPD, pneumonia, pleural effusion, pulmonary edema, ARDS, pneumothorax, CHF, cardiac ischemia, cardiac tamponade, dysrhythmia, anemia, pulmonary embolism, musculoskeletal, ga strointestinal process, as well as others were entertained. Laboratory Data Result diagrams: 01/21/20 04:52 01/21/20 04:52 Lab Results 01/21/20 01/21/20 01/21/20 Range/Units 04:52 04:52 04:52 WBC 5.76 (4.8-10.8) K/uL RBC 4.11 L (4.7-6.1) M/uL Hgb 12.1 L (14.0-18.0) g/dL Hct 38.1 L (42-52) % MCV 92.7 (80-100) fL MCH 29.4 (25-34) pg MCHC 31.8 L (32-36) g/dL RDW Std Deviation 47.9 H (36.4-46.3) fL RDW Coeff of Helen 14.2 (11.5-14.5) % Plt Count 228 (130-400) K/uL MPV 9.8 (7.4-10.4) fL Immature Gran % (Auto) 0.2 % Neut % (Auto) 92.2 % Lymph % (Auto) 5.0 % Garden % (Auto) 2.6 % Eos % (Auto) 0.0 % Baso % (Auto) 0.0 % Immature Gran # (Auto) 0.01 (0.00-0.02) K/uL Neut # (Auto) 5.31 (1.4-6.5) K/uL Lymph # (Auto) 0.29 L (1.2-3.4) K/uL Garden # (Auto) 0.15 (0.11-0.59) K/uL Eos # (Auto) 0.00 (0-0.5) K/uL Baso # (Auto) 0.00 (0-0.2) K/uL PT (9.0-12.0) Seconds INR (0.9-1.1) APTT (21.0-31.0) Seconds PTT Ratio VBG pH (7.36-7.41) VBG pCO2 (38-50) mmHg VBG pO2 mmHg VBG HCO3 mmol/L VBG O2 Saturation % VBG Base Excess mEq/L Barometric Pressure mm/Hg Sodium 129 L (136-145) mmol/L Potassium 4.9 (3.5-5.1) mmol/L Chloride 89 L (98-107) mmol/L Carbon Dioxide 37 H (21-32) mmol/L Anion Gap 3.0 (3-11) BUN 10 (7-18) mg/dl Creatinine 0.71 (0.6-1.4) mg/dl Est Cr Clr Drug Dosing Not Reportable Est GFR ( Amer) 112.5 Est GFR (Non-Af Amer) 97.1 BUN/Creatinine Ratio 14.1 (10-20) Glucose 124 H (70-99) mg/dl Lactate 0.6 (0.4-2.0) mmol/L Calcium 7.6 L (8.5-10.1) mg/dl Magnesium 2.0 (1.8-2.4) mg/dl Total Bilirubin 0.4 (0.2-1) mg/dl AST 23 (15-37) U/L ALT 11 L (12-78) U/L Alkaline Phosphatase 65 (45-117) U/L Troponin I < 0.015 (0-0.045) ng/ml NT-Pro-B Natriuret Pep 584 (0-900) pg/ml Total Protein 6.1 L (6.4-8.2) gm/dl Albumin 3.0 L (3.4-5.0) gm/dl Globulin 3.1 (2.5-4.0) gm/dl Albumin/Globulin Ratio 1.0 (0.9-2) Lipase 66 L (73-393) U/L Procalcitonin (0-0.5) ng/ml Urine Color Urine Appearance (Clear) Urine pH (4.5-7.5) Ur Specific [place] (1.000-1.030) Urine Protein (Negative) Urine Glucose (UA) (Negative) Urine Ketones (Negative) Urine Blood (Negative) Urine Nitrite (Negative) Urine Bilirubin (Negative) Urine Urobilinogen (Negative) Ur Leukocyte Esterase (Negative) Urine WBC (Auto) (0-5) /hpf Urine RBC (Auto) (0-4) /hpf U Hyaline Cast (Auto) (0-5) /lpf U Epithel Cells (Auto) (0-5) /lpf Urine Bacteria (Auto) (Negative) Urine Mucus (None Prsent) Influenza Type A (PCR) (Neg) Influenza Type B (PCR) (Neg) 01/21/20 01/21/20 01/21/20 Range/Units 04:52 04:52 05:00 WBC (4.8-10.8) K/uL RBC (4.7-6.1) M/uL Hgb (14.0-18.0) g/dL Hct (42-52) % MCV (80-100) fL MCH (25-34) pg MCHC (32-36) g/dL RDW Std Deviation (36.4-46.3) fL RDW Coeff of Helen (11.5-14.5) % Plt Count (130-400) K/uL MPV (7.4-10.4) fL Immature Gran % (Auto) % Neut % (Auto) % Lymph % (Auto) % Garden % (Auto) % Eos % (Auto) % Baso % (Auto) % Immature Gran # (Auto) (0.00-0.02) K/uL Neut # (Auto) (1.4-6.5) K/uL Lymph # (Auto) (1.2-3.4) K/uL [place] # (Auto) (0.11-0.59) K/uL Eos # (Auto) (0-0.5) K/uL Baso # (Auto) (0-0.2) K/uL PT 11.9 (9.0-12.0) Seconds INR 1.1 (0.9-1.1) APTT 30.1 (21.0-31.0) Seconds PTT Ratio 1.1 VBG pH 7.18 L (7.36-7.41) VBG pCO2 101 H (38-50) mmHg VBG pO2 77 mmHg VBG HCO3 37 mmol/L VBG O2 Saturation 93.2 % VBG Base Excess 5.5 mEq/L Barometric Pressure 728.4 mm/Hg Sodium (136-145) mmol/L Potassium (3.5-5.1) mmol/L Chloride (98-107) mmol/L Carbon Dioxide (21-32) mmol/L Anion Gap (3-11) BUN (7-18) mg/dl Creatinine (0.6-1.4) mg/dl Est Cr Clr Drug Dosing Est GFR ( Amer) Est GFR (Non-Af Amer) BUN/Creatinine Ratio (10-20) Glucose (70-99) mg/dl Lactate (0.4-2.0) mmol/L Calcium (8.5-10.1) mg/dl Magnesium (1.8-2.4) mg/dl Total Bilirubin (0.2-1) mg/dl AST (15-37) U/L ALT (12-78) U/L Alkaline Phosphatase (45-117) U/L Troponin I (0-0.045) ng/ml NT-Pro-B Natriuret Pep (0-900) pg/ml Total Protein (6.4-8.2) gm/dl Albumin (3.4-5.0) gm/dl Globulin (2.5-4.0) gm/dl Albumin/Globulin Ratio (0.9-2) Lipase (73-393) U/L Procalcitonin < 0.05 (0-0.5) ng/ml Urine Color Urine Appearance (Clear) Urine pH (4.5-7.5) Ur Specific [place] (1.000-1.030) Urine Protein (Negative) Urine Glucose (UA) (Negative) Urine Ketones (Negative) Urine Blood (Negative) Urine Nitrite (Negative) Urine Bilirubin (Negative) Urine Urobilinogen (Negative) Ur Leukocyte Esterase (Negative) Urine WBC (Auto) (0-5) /hpf Urine RBC (Auto) (0-4) /hpf U Hyaline Cast (Auto) (0-5) /lpf U Epithel Cells (Auto) (0-5) /lpf Urine Bacteria (Auto) (Negative) Urine Mucus (None Prsent) Influenza Type A (PCR) (Neg) Influenza Type B (PCR) (Neg) 01/21/20 01/21/20 Range/Units 05:00 05:20 WBC (4.8-10.8) K/uL RBC (4.7-6.1) M/uL Hgb (14.0-18.0) g/dL Hct (42-52) % MCV (80-100) fL MCH (25-34) pg MCHC (32-36) g/dL RDW Std Deviation (36.4-46.3) fL RDW Coeff of Helen (11.5-14.5) % Plt Count (130-400) K/uL MPV (7.4-10.4) fL Immature Gran % (Auto) % Neut % (Auto) % Lymph % (Auto) % Garden % (Auto) % Eos % (Auto) % Baso % (Auto) % Immature Gran # (Auto) (0.00-0.02) K/uL Neut # (Auto) (1.4-6.5) K/uL Lymph # (Auto) (1.2-3.4) K/uL [place] # (Auto) (0.11-0.59) K/uL Eos # (Auto) (0-0.5) K/uL Baso # (Auto) (0-0.2) K/uL PT (9.0-12.0) Seconds INR (0.9-1.1) APTT (21.0-31.0) Seconds PTT Ratio VBG pH (7.36-7.41) VBG pCO2 (38-50) mmHg VBG pO2 mmHg VBG HCO3 mmol/L VBG O2 Saturation % VBG Base Excess mEq/L Barometric Pressure mm/Hg Sodium (136-145) mmol/L Potassium (3.5-5.1) mmol/L Chloride (98-107) mmol/L Carbon Dioxide (21-32) mmol/L Anion Gap (3-11) BUN (7-18) mg/dl Creatinine (0.6-1.4) mg/dl Est Cr Clr Drug Dosing Est GFR ( Amer) Est GFR (Non-Af Amer) BUN/Creatinine Ratio (10-20) Glucose (70-99) mg/dl Lactate (0.4-2.0) mmol/L Calcium (8.5-10.1) mg/dl Magnesium (1.8-2.4) mg/dl Total Bilirubin (0.2-1) mg/dl AST (15-37) U/L ALT (12-78) U/L Alkaline Phosphatase (45-117) U/L Troponin I (0-0.045) ng/ml NT-Pro-B Natriuret Pep (0-900) pg/ml Total Protein (6.4-8.2) gm/dl Albumin (3.4-5.0) gm/dl Globulin (2.5-4.0) gm/dl Albumin/Globulin Ratio (0.9-2) Lipase (73-393) U/L Procalcitonin (0-0.5) ng/ml Urine Color Yellow Urine Appearance Clear (Clear) Urine pH 5.5 (4.5-7.5) Ur Specific [place] 1.023 (1.000-1.030) Urine Protein Trace H (Negative) Urine Glucose (UA) Negative (Negative) Urine Ketones Trace H (Negative) Urine Blood Negative (Negative) Urine Nitrite Negative (Negative) Urine Bilirubin Negative (Negative) Urine Urobilinogen Negative (Negative) Ur Leukocyte Esterase 1+ H (Negative) Urine WBC (Auto) >30 H (0-5) /hpf Urine RBC (Auto) 0-4 (0-4) /hpf U Hyaline Cast (Auto) 5-10 H (0-5) /lpf U Epithel Cells (Auto) 0-5 (0-5) /lpf Urine Bacteria (Auto) 1+ H (Negative) Urine Mucus Present A (None Prsent) Influenza Type A (PCR) Neg for Influ A (Neg) Influenza Type B (PCR) Neg for Influ B (Neg) ECG Data Attestation: I personally reviewed and interpreted this ECG as follows: Indication: + SOB/dyspnea Additional Comments: Sinus rhythm with Premature supraventricular complexes @76 bpm Otherwise normal ECG When compared with ECG of 20-APR-2018 23:08, Premature supraventricular c omplexes are now Present ST no longer depressed in Inferior leads MDM Narrative Physical exam and history were performed. Nursing notes, EMR, and Medication List were personally reviewed. Patient appears to have shortness of breath and hypoxia. On exam he does appear quite ill, and his saturation is in the low to mid 80s. The patient was immedi ately evaluated upon his arrival to the department and placed on 5 L nasal cannula. This did improve his saturation to 98 and 99%. The patient is audibly wheezing upon my arrival to the room, and does have a past history of hypercapnic respiratory failure with intubation. IV access was established and labs were obtained. Chest x-ray was performed. Case was discussed with my attending who remained involved in care and decision making. Patient's blood work is as above and was reviewed. He does not have a significantly elevated white blood cell count. He is mildly anemic at 12.1. His VBG does show acidosis at 7.18 with a PCO2 of 101. Sodium is low at 129. Glucose is 124. Lactic acid is negative with blood cultures pending. Transaminases are not diagnostic. Troponin x1 is negative. Urine is somewhat dirty with culture pending. Influenza swab is negative. Chest x-ray was revi ewed by myself and my attending, does not appear to show distinct pneumonia, but may have some heart failure. BNP was normal. Procalcitonin is undetected. An order was placed for continuous cardiac monitoring. The monitor shows a rate of 80 with primarily normal sinus with occasional PVCs. The patient was reevaluated multiple times at the course of his stay. He does seem improved now that he is on higher flow oxygen. The patient may be a good candidate for BiPAP, however he has failed this in the past, to the point where he is aspirated on his emesis while on BiPAP. At this time the patient does not seem well for discharge home. The patient was discussed with the [facility] hospitalist who agreed to evaluate him here in the ER. Please see their dictation for further patient course, plan, and disposition. The chart was completed utilizing [employer] Speech Voice Recognition Software. Grammatical errors, random word insertions, pronoun errors, and incomplete sentences are an occasional consequence of this system due to software limitations, ambient noise, and hardware issues. Any formal questions or concerns about the content, text, or information contained within the body of this dictation should be directly addressed to the provider for clarification. . Impression & Plan Acute respiratory acidosis, Shortness of breath, Hypoxia Discharge Plan Visit Data Chief Complaint: Shortness of Breath/Dyspnea Stated Complaint: breathing difficulty ED Provider: Blair Quintero ED Midlevel Provider: Maurice Ayers Discharge Problem: Acute respiratory acidosis, Shortness of breath, Hypoxia Patient Disposition: Admitted As Inpatient Prescriptions Prescriptions: No Action carbidopa-levodopa 50-200 mg tablet extended release 1 tab PO HS RF: 0 tamsulosin 0.4 mg capsule 0.4 mg PO HS RF: 0 trazodone 50 mg tablet 50 mg PO HS RF: 0 lisinopril 10 mg tablet 10 mg PO DAILY RF: 0 omeprazole 20 mg capsule,delayed release(DR/EC) 20 mg PO QAM RF: 0 carbidopa-levodopa 25-100 mg tablet 1.5 tab PO 6XD RF: 0 ferrous sulfate 325 mg (65 mg iron) tablet 325 mg PO BID RF: 0 furosemide 20 mg tablet 20 mg PO DAILY RF: 0 ropinirole 4 mg tablet 4 mg PO QID RF: 0 metoprolol tartrate 25 mg tablet 25 mg PO BID RF: 0 ropinirole 12 mg tablet extended release 24 hr 12 mg PO HS RF: 0 albuterol sulfate 2.5 mg /3 mL (0.083 %) Solution For Nebulization 2.5 mg INHALATION UD PRN (Reason: Shortness Of Breath Or Wheezing) RF: 0 prednisone 20 mg tablet 40 mg PO DAILY PRN (Reason: rescue kit) RF: 0 cyanocobalamin (vitamin B-12) 1,000 mcg Tablet 1,500 mcg PO DAILY RF: 0 sildenafil 100 mg Tablet 100 mg PO DAILY PRN (Reason: Erectile Dysfunction) RF: 0 triamcinolone acetonide 0.1 % cream 1 applic TOPICAL BID RF: 0 hydrocortisone [Proctosol HC] 2.5 % Cream With Perineal Applicator 1 applic [place] BID PRN (Reason: Hemorrhoids) RF: 0 fluticasone propionate 50 mcg/actuation spray,suspension 2 spray INTRANASAL DAILY RF: 0 sodium chloride [Saline Nasal Mist] 0.65 % Aerosol,[place] 1 spray INTRANASAL DAILY PRN (Reason: Nasal Congestion) RF: 0 Referrals Referrals: Miguel Angel Curran DO [Primary Care Provider] -
[2020-01-21 05:11] LABS: Hematocrit (blood only) 38.1 % (42-52); Hemoglobin 12.1 g/dL (14.0-18.0); Immature Granulocytes # (auto) 0.01 K/uL (0.00-0.02); Immature Granulocytes % (auto) 0.2 %; Lymphocytes # (auto) 0.29 K/uL (1.2-3.4); Mean Corpuscular Hemoglobin 29.4 pg (25-34); Mean Corpuscular Hgb Conc 31.8 g/dL (32-36); Mean Corpuscular Volume 92.7 fL (80-100); Mean Platelet Volume 9.8 fL (7.4-10.4); Monocytes # (auto) 0.15 K/uL (0.11-0.59); Monocytes % (auto) 2.6 %; Neutrophils # (auto) 5.31 K/uL (1.4-6.5); Neutrophils % (auto) 92.2 %; Platelet Count 228 K/uL (130-400); RDW Coefficient of Variation 14.2 % (11.5-14.5); RDW Standard Deviation 47.9 fL (36.4-46.3); Red Blood Count 4.11 M/uL (4.7-6.1); White Blood Count 5.76 K/uL (4.8-10.8)
[2020-01-21 05:24] LABS: INR 1.1 (0.9-1.1); Partial Thromboplastin Ratio 1.1; Partial Thromboplastin Time 30.1 Seconds (21.0-31.0); Prothrombin Time 11.9 Seconds (9.0-12.0)
[2020-01-21 05:31] LABS: Base Excess VBG 5.5 mEq/L; Oxygen Saturation VBG 93.2 %; pH VBG 7.18 (7.36-7.41)
[2020-01-21 05:31] LABS: Alanine Aminotransferase 11 U/L (12-78); Aspartate Aminotransferase 23 U/L (15-37); BUN Creatinine Ratio 14.1 (10-20); Blood Urea Nitrogen 10 mg/dl (7-18); Calcium 7.6 mg/dl (8.5-10.1); Carbon Dioxide 37 mmol/L (21-32); Chloride 89 mmol/L (98-107); Est GFR (African American) 112.5; Est GFR (Non-African American) 97.1; Glucose 124 mg/dl (70-99); Lipase 66 U/L (73-393); Potassium 4.9 mmol/L (3.5-5.1); Sodium 129 mmol/L (136-145)
[2020-01-21 05:36] LABS: Alkaline Phosphatase 65 U/L (45-117); Bilirubin,Total 0.4 mg/dl (0.2-1); Globulin 3.1 gm/dl (2.5-4.0); Total Protein 6.1 gm/dl (6.4-8.2); Troponin I < 0.015 ng/ml (0-0.045)
[2020-01-21 05:38] LABS: Appearance Urine Clear (Clear); Bilirubin Urine Negative (Negative); Blood Urine Negative (Negative); Color Urine Yellow; Epithelial Cell Urine Auto 0-5 /lpf (0-5); Glucose Urine UA Negative (Negative); Ketones Urine Trace (Negative); Leukocyte Esterase Urine 1+ (Negative); Nitrite Urine Negative (Negative); Protein Urine Trace (Negative); RBC Urine Automated 0-4 /hpf (0-4); Specific Gravity Urine 1.023 (1.000-1.030); Urobilinogen Urine Negative (Negative); WBC Urine Automated >30 /hpf (0-5); pH Urine 5.5 (4.5-7.5)
[2020-01-21 05:47] LABS: Mucus Urine Present (None Prsent)
[2020-01-21 05:47] LABS: Influenza A virus by PCR Neg for Influ A (Neg); Influenza B virus by PCR Neg for Influ B (Neg)
[2020-01-21 05:48] LABS: Bacteria Urine Automated 1+ (Negative)
[2020-01-21 05:51] LABS: NT Pro B Type Natriuretic Pept 584 pg/ml (0-900)
[2020-01-21] MEDS ORDERED: ALBUT/IPRATROP 3MG/0.5MG NEB 3 ML VIAL NEB STA (05:53)
--- NOTE | 2020-01-21 06:44 | History & Physical Report ---
Date of Service January 21, 2020 Assessment & Plan (1) Hypercapnic respiratory failure: Multifactorial : Acute on chronic Likely underlying OHS (possible YOON as per records) History of BiPAP intolerance Secondary to COPD/RLD exacerbation CAP poss aspiration pneumonitis (known aspiration risk as per ) No overt sepsis for now. ? Right-sided heart failure/pulmonary hypertension given pulmonary congestion/leg swelling (increased lymphedema) in the setting of normal BNP hx Parkinson's disease status post deep brain stimulator placement hypertension, stable New onset anemia ? Blood loss from hemorrhoidal bleed as per patient ? Dilutional from fluid retention from CHF Worsening leg swelling with wound drainage hx chronic lymphedema Rule out DVT Hyperglycemia rule out DM hx PVD as per records past tobacco abuse hx of MRSA Medical telemetry NIPPV Doxycycline, Zosyn for pulmonary/leg infection Aspiration precautions, swallow eval Nebs, steroid course Followup ABG post BiPAP Lasix 1 dose TTE RE possible right-sided heart failure, portal hypertension Anemia work-up, transfuse PRBC if hemoglobin less than 8 and or for symptomatic anemia (hx PVD as per records) Leg wound cultures Wound care nurse consult Re: Leg wounds LE venous Dopplers rule out DVT Check hemoglobin A1c DVT prophylaxis. SCDs RE hemorrhoidal bleed causing anemia DNR Patient adamantly refusing BiPAP for severe respiratory acidosis despite being counseled about potential worsening of condition culminating in . Patient/ accept potential consequence of decision. Agreeable to medical therapy next 24 to 48 hours. They will consider comfort measures if no improvement thereafter. Patient's requesting updates from providers. Dominique Lynn, contact #[phone]. Total critical time was 45 minutes. Text document was generated using [employer] voice recognition software. It may contain grammatical or spelling errors. Kindly contact undersigned for clarification of any documentation item in question. History of Present Illness Chief Complaint: Shortness of breath, cough Primary Care Provider: Miguel Angel Curran, History obtained from patient, family, and records. Limited history from patient secondary lethargy. Medical history significant for chronic respiratory failure, COPD/restrictive lung disease as per records, possible YOON as per records, BiPAP intolerance as per records, Parkinson's disease status post deep brain stimulator placement, hypertension, PVD as per records, BPH as per records, past tobacco abuse, hx of MRSA, chronic lymphedema as per , known aspiration risk. Recent confinement July 2017 for hypercapnic respiratory failure. Intermittent BiPAP during confinement although patient intolerant as per . Patient initially discharged to [facility] for rehab then transitioned to home. 1 month history of worsening LE lymphedema swelling with some yellow drainage. No fever, no chills. Outpatient antibiotic Rx and as needed Lasix ordered. Patient denies chest pain or S OB. Last two days patient noted worsening shortness of breath and cough symptoms. Coughing if not careful with meals/water intake as per . Patient noted to be increasingly lethargic. Patient denies abdominal pain symptoms. Intermittent hemorrhoidal bleed as per patient . Patient brought to the ER for evaluation. Medical History as above Surgical History : Craniotomy for deep brain stimulator placement, hernia repair, tonsil tag removal, shoulder surgery Family History : Parkinson's disease, diabetes, heart disease, prostate cancer Personal/Social history : Past tobacco abuse, no EtOH intake, disabled Allergies Allergy/AdvReac Type Severity Reaction Status Date / Time sulindac AdvReac Intermediate STOMACH Verified 01/21/20 05:28 IRRATION Home Medications Home Medications Medication Instructions Recorded Confirmed Type albuterol sulfate 2.5 mg INHALATION UD PRN 01/21/20 01/21/20 History carbidopa-levodopa 1 tab PO HS 01/21/20 01/21/20 History carbidopa-levodopa 1.5 tab PO 6XD 01/21/20 01/21/20 History cyanocobalamin (vitamin B-12) 1,500 mcg PO DAILY 01/21/20 01/21/20 History ferrous sulfate 325 mg PO BID 01/21/20 01/21/20 History fluticasone propionate 2 spray INTRANASAL DAILY 01/21/20 01/21/20 History furosemide 20 mg PO DAILY 01/21/20 01/21/20 History hydrocortisone [Proctosol HC] 1 applic [place] BID PRN 01/21/20 01/21/20 History lisinopril 10 mg PO DAILY 01/21/20 01/21/20 History metoprolol tartrate 25 mg PO BID 01/21/20 01/21/20 History omeprazole 20 mg PO QAM 01/21/20 01/21/20 History prednisone 40 mg PO DAILY PRN 01/21/20 01/21/20 History ropinirole 4 mg PO QID 01/21/20 01/21/20 History ropinirole 12 mg PO HS 01/21/20 01/21/20 History sildenafil 100 mg PO DAILY PRN 01/21/20 01/21/20 History sodium chloride [Saline Nasal Mist] 1 spray INTRANASAL DAILY PRN 01/21/20 01/21/20 History tamsulosin 0.4 mg PO HS 01/21/20 01/21/20 History trazodone 50 mg PO HS 01/21/20 01/21/20 History triamcinolone acetonide 1 applic TOPICAL BID 01/21/20 01/21/20 History Past Med/Surg History Medical History (Updated 01/21/20 @ 11:41 by Laith Estrada MD) History of kidney stones (Chronic) HTN (hypertension) (Chronic) Hypercapnic respiratory failure Parkinson disease (Chronic) Surgical History (Updated 01/21/20 @ 05:03 by Maurice Ayers PA-C) H/O inguinal hernia repair (Chronic) H/O shoulder surgery (Chronic) S/P deep brain stimulator placement (Chronic) Social History Preferred Language: Somali Communication Ability: Impaired Communication Ability Comment: 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 Beliefs That Will Affect Care: None Current Living Situation: Spouse Feels Safe at Home: Yes Safety Concerns: Feels Safe At This Time Smoking Status: Unknown if ever smoked Hx Alcohol Use: No Hx Substance Use: No Review of Systems Review of Systems: Could not be reliably obtained Physical Exam Physical Exam: GENERAL: Lethargic, minimal respiratory distress, obese SKIN: Pallor , warm HEENT: Pale palpebral conjunctivae, no ptosis, dry buccal mucosa, nasal cannula in place NECK : Supple, short neck, no tenderness CHEST : Decreased breath sounds, occasional expiratory wheezes , no tenderness HEART : RRR, no obvious murmurs ABDOMEN: Some distention, nontender EXTREMITIES : Bilateral LE swelling with minimal erythema and tenderness, dressing over wounds on lower extremities, no other conspicuous deformities noted NEUROLOGIC : Coherent, no facial asymmetry, no other gross focality Results & Data Results & [facility]) Vital Signs (Past 12 Hours) Vital Signs Temp Pulse Pulse Resp BP Pulse Ox 01/21/20 06:12 80 26 H 99 01/21/20 06:00 77 32 H 115/70 99 01/21/20 05:30 80 26 H 122/67 100 01/21/20 05:02 23 97 01/21/20 05:01 100 01/21/20 05:00 77 23 135/79 100 01/21/20 04:49 37.3 C 71 24 135/79 87 L Laboratory Results Laboratory Results WBC 5.76 K/uL (4.8-10.8) 01/21/20 04:52 RBC 4.11 M/uL (4.7-6.1) L 01/21/20 04:52 Hgb 12.1 g/dL (14.0-18.0) L 01/21/20 04:52 Hct 38.1 % (42-52) L 01/21/20 04:52 MCV 92.7 fL (80-100) 01/21/20 04:52 MCH 29.4 pg (25-34) 01/21/20 04:52 MCHC 31.8 g/dL (32-36) L 01/21/20 04:52 RDW Std Deviation 47.9 fL (36.4-46.3) H 01/21/20 04:52 RDW Coeff of Helen 14.2 % (11.5-14.5) 01/21/20 04:52 Plt Count 228 K/uL (130-400) 01/21/20 04:52 MPV 9.8 fL (7.4-10.4) 01/21/20 04:52 Immature Gran % (Auto) 0.2 % 01/21/20 04:52 Neut % (Auto) 92.2 % 01/21/20 04:52 Lymph % (Auto) 5.0 % 01/21/20 04:52 [place] % (Auto) 2.6 % 01/21/20 04:52 Eos % (Auto) 0.0 % 01/21/20 04:52 Baso % (Auto) 0.0 % 01/21/20 04:52 Immature Gran # (Auto) 0.01 K/uL (0.00-0.02) 01/21/20 04:52 Neut # (Auto) 5.31 K/uL (1.4-6.5) 01/21/20 04:52 Lymph # (Auto) 0.29 K/uL (1.2-3.4) L 01/21/20 04:52 [place] # (Auto) 0.15 K/uL (0.11-0.59) 01/21/20 04:52 Eos # (Auto) 0.00 K/uL (0-0.5) 01/21/20 04:52 Baso # (Auto) 0.00 K/uL (0-0.2) 01/21/20 04:52 PT 11.9 Seconds (9.0-12.0) 01/21/20 04:52 INR 1.1 (0.9-1.1) 01/21/20 04:52 APTT 30.1 Seconds (21.0-31.0) 01/21/20 04:52 PTT Ratio 1.1 01/21/20 04:52 VBG pH 7.18 (7.36-7.41) L 01/21/20 05:00 VBG pCO2 101 mmHg (38-50) H 01/21/20 05:00 VBG pO2 77 mmHg 01/21/20 05:00 VBG HCO3 37 mmol/L 01/21/20 05:00 VBG O2 Saturation 93.2 % 01/21/20 05:00 VBG Base Excess 5.5 mEq/L 01/21/20 05:00 Barometric Pressure 728.4 mm/Hg 01/21/20 05:00 Sodium 129 mmol/L (136-145) L 01/21/20 04:52 Potassium 4.9 mmol/L (3.5-5.1) 01/21/20 04:52 Chloride 89 mmol/L (98-107) L 01/21/20 04:52 Carbon Dioxide 37 mmol/L (21-32) H 01/21/20 04:52 Anion Gap 3.0 (3-11) 01/21/20 04:52 BUN 10 mg/dl (7-18) 01/21/20 04:52 Creatinine 0.71 mg/dl (0.6-1.4) 01/21/20 04:52 Est Cr Clr Drug Dosing Not Reportable 01/21/20 04:52 Est GFR ( Amer) 112.5 01/21/20 04:52 Est GFR (Non-Af Amer) 97.1 01/21/20 04:52 BUN/Creatinine Ratio 14.1 (10-20) 01/21/20 04:52 Glucose 124 mg/dl (70-99) H 01/21/20 04:52 Lactate 0.6 mmol/L (0.4-2.0) 01/21/20 04:52 Calcium 7.6 mg/dl (8.5-10.1) L 01/21/20 04:52 Magnesium 2.0 mg/dl (1.8-2.4) 01/21/20 04:52 Total Bilirubin 0.4 mg/dl (0.2-1) 01/21/20 04:52 AST 23 U/L (15-37) 01/21/20 04:52 ALT 11 U/L (12-78) L 01/21/20 04:52 Alkaline Phosphatase 65 U/L (45-117) 01/21/20 04:52 Troponin I < 0.015 ng/ml (0-0.045) 01/21/20 04:52 NT-Pro-B Natriuret Pep 584 pg/ml (0-900) 01/21/20 04:52 Total Protein 6.1 gm/dl (6.4-8.2) L 01/21/20 04:52 Albumin 3.0 gm/dl (3.4-5.0) L 01/21/20 04:52 Globulin 3.1 gm/dl (2.5-4.0) 01/21/20 04:52 Albumin/Globulin Ratio 1.0 (0.9-2) 01/21/20 04:52 Lipase 66 U/L (73-393) L 01/21/20 04:52 Procalcitonin < 0.05 ng/ml (0-0.5) 01/21/20 04:52 Urine Color Yellow 01/21/20 05:20 Urine Appearance Clear (Clear) 01/21/20 05:20 Urine pH 5.5 (4.5-7.5) 01/21/20 05:20 Ur Specific [place] 1.023 (1.000-1.030) 01/21/20 05:20 Urine Protein Trace (Negative) H 01/21/20 05:20 Urine Glucose (UA) Negative (Negative) 01/21/20 05:20 Urine Ketones Trace (Negative) H 01/21/20 05:20 Urine Blood Negative (Negative) 01/21/20 05:20 Urine Nitrite Negative (Negative) 01/21/20 05:20 Urine Bilirubin Negative (Negative) 01/21/20 05:20 Urine Urobilinogen Negative (Negative) 01/21/20 05:20 Ur Leukocyte Esterase 1+ (Negative) H 01/21/20 05:20 Urine WBC (Auto) >30 /hpf (0-5) H 01/21/20 05:20 Urine RBC (Auto) 0-4 /hpf (0-4) 01/21/20 05:20 U Hyaline Cast (Auto) 5-10 /lpf (0-5) H 01/21/20 05:20 U Epithel Cells (Auto) 0-5 /lpf (0-5) 01/21/20 05:20 Urine Bacteria (Auto) 1+ (Negative) H 01/21/20 05:20 Urine Mucus Present (None Prsent) A 01/21/20 05:20 Influenza Type A (PCR) Neg for Influ A (Neg) 01/21/20 05:00 Influenza Type B (PCR) Neg for Influ B (Neg) 01/21/20 05:[address] head: 1. No acute intracranial abnormality. 2. Bilateral deep brain stimulators redemonstrated. Chest x-ray : 1. Cardiomegaly with volume overload and advanced congestive change. 2. Bibasilar atelectasis. EKG as per my interpretation : Rate 75, NSR, normal axis, T wave flattening inferior leads, PVCs
[2020-01-21] MEDS ORDERED: PIPERACILLIN/TAZOBACTAM 4.5 GM/120 ML BAG IV ONE (06:45)
[2020-01-21] MEDS ORDERED: DOXYCYCLINE HYCLATE 100 MG in DEXTROSE 5% 100 ML IV STA (06:45)
[2020-01-21] MEDS ORDERED: PIPERACILL/TAZOBAC CONSULT ACTIVE PRN (06:45)
[2020-01-21 07:52] LABS: Estimated Average Glucose 126 mg/dl
--- NOTE | 2020-01-21 07:52 | XRay Report ---
XR chest 1V portable CLINICAL HISTORY: 69 years-old Male presenting with SOB, wheezing. TECHNIQUE: Portable upright AP view of the chest was obtained. COMPARISON: 04/20/2018. FINDINGS: A stimulator device courses to the left neck and projects over the left midlung. Atherosclerosis of t he aortic arch. Cardiac silhouette moderately enlarged. Pulmonary vascular and interstitial prominenc e. Mildly low lung volumes with elevation of the right hemidiaphragm. Minimal basilar opacities. No p leural effusion or pneumothorax. Degenerative changes of the left glenohumeral joint. Right shoulder arthroplasty. Hiatal hernia may be present. IMPRESSION: 1. Cardiomegaly with volume overload and advanced congestive change. 2. Bibasilar atelectasis. ACT 112: Negative or not required by law. Electronically signed by: Michael Bailey M.D. 01/21/2020 7:50 AM
[2020-01-21] MEDS ORDERED: FUROSEMIDE 40 MG/4 ML VIAL IV STA (07:56)
[2020-01-21] MEDS ORDERED: FUROSEMIDE 40 MG/4 ML VIAL IV ONE (08:01)
--- NOTE | 2020-01-21 08:26 | CT Scan Report ---
CT head/brain wo con CLINICAL HISTORY: 69 years-old Male with lethargy. Acutely altered mental status TECHNIQUE: Multiple axial CT images of the head were obtained without contrast. A dose lowering tech nique was utilized adhering to the principles of ALARA. CT DOSE: 614.27 mGy.cm COMPARISON: Head CT 07/05/2017 FINDINGS: No acute intracranial hemorrhage, midline shift, intracranial mass, hydrocephalus, territorial ischem ia or abnormal extra-axial collection. Bilateral neuro stimulators are noted with distal tips project ed over the cerebral peduncles and thalami. Encephalomalacia is again noted surrounding the left lead within the left frontal lobe. Streak artifact from the leads limits evaluation of the adjacent brain parenchyma. Age-related involutional changes. Mild patchy white matter hypodensities suggest chronic microvascular ischemic disease. Cerebral vascular calcifications. The calvarium is intact. Mild mucosal thickening of the maxillary sinuses. Mastoid air cells are kelle ar. Soft tissues and orbits are unremarkable. IMPRESSION: 1. No acute intracranial abnormality. 2. Bilateral deep brain stimulators redemonstrated. ACT 112: Negative or not required by law. The above report was generated using voice recognition software. It may contain grammatical, syntax o r spelling errors. Electronically signed by: Marek Malhotra M.D. 01/21/2020 8:25 AM
[2020-01-21] MEDS ORDERED: INSULIN ASPART 100 UNITS/ML 3 ML PEN SC SCH (09:15)
[2020-01-21] MEDS ORDERED: GLUCOSE 40% GEL 15 GM TUBE PO PRN (09:15)
[2020-01-21] MEDS ORDERED: PROMETHAZINE HCL 12.5 MG in SODIUM CHLORIDE 0.9% 50 ML IV PRN (09:15)
[2020-01-21] MEDS ORDERED: DEXTROSE 50% 50 ML SYRINGE IV PRN (09:15)
[2020-01-21] MEDS ORDERED: GLUCOSE 10 TABS/TUBE PO PRN (09:15)
[2020-01-21] MEDS ORDERED: ACETAMINOPHEN 325 MG TAB PO PRN (09:15)
[2020-01-21] MEDS ORDERED: CARBOHYDRATES FOR HYPOGLYCEMIA PO PRN (09:15)
[2020-01-21] MEDS ORDERED: GLUCAGON FOR INJ 1 MG VIAL SQ PRN (09:15)
[2020-01-21] MEDS ORDERED: Nursing to Pharmacy Communication ONE ×2 (11:00→23:14)
--- NOTE | 2020-01-21 11:05 | Ultrasound Report ---
BILATERAL LOWER EXTREMITY VENOUS DOPPLER HISTORY: Acute pain and swelling of the bilateral lower extremities leg swelling COMPARISON STUDY: Duplex venous Doppler study 03/12/2017 FINDINGS: There is normal compressibility, flow, and augmentation within the bilateral lower extremit y deep venous systems. Subcutaneous edema of the lower extremities. IMPRESSION: No DVT within the right or left lower extremity. ACT 112: Negative or not required by law. Electronically signed by: Marek Malhotra M.D. 01/21/2020 11:04 AM
[2020-01-21 11:29] LABS: Hematocrit (blood only) 40.7 % (42-52); Hemoglobin 13.1 g/dL (14.0-18.0); Reticulocyte % 1.2 % (0.5-2.0); Reticulocytes # 0.05 10^6/uL (0.02-0.10)
[2020-01-21 11:33] LABS: Base Excess ABG 10.5 mEq/L (-9-1.8); HCO3 ABG 40 mmol/L (19-24); PCO2 ABG 84 mmHg (35-46); PO2 ABG 81 mmHg (80-95)
[2020-01-21 11:34] LABS: Allen Test Pos (Pos)
--- NOTE | 2020-01-21 11:43 | Pulmonary Consultation ---
Date of Consultation January 21, 2020 Assessment & Plan (1) Acute respiratory failure with hypercapnia: Chest x-ray 01/21/2020: Portable film, poor inspiratory effort, bilateral costophrenic angles are clean, retrocardiac is not clearly visualized. Increased hilar vascular markings. --Acute hypercapnic respiratory failure Etiology is most likely restrictive secondary to underlying Parkinson's disease In patients will have advanced Parkinson's disease diaphragmatic muscle as well as expiratory muscles are also involved, this was a time when they need noninvasive ventilation Patient needs noninvasive ventilation [id number] and as needed after that Importance of using noninvasive ventilation was explained to the patient in depth but he still refuses to use it even for a little bit. I doubt there is underlying pneumonia --Chronic lower extremity edema Etiology is quite unclear, Doppler negative for DVT Patient has history of lymphedema bilateral lower extremities Could be secondary to pulmonary hypertension Follow-up 2D echo, BNP is within normal limit Diuresis as tolerated --Parkinson's disease Care as per primary team. --Hyponatremia Hypervolemic Hypotonic Treatment as per primary team Plan: No need for steroids. Will discontinue it Given the patient's refusal to use noninvasive ventilation unfortunately there is not much to offer from pulmonary perspective. High flow has shown to decrease PCO2 to some extent in a patient who are only hypercapnic. I am giving to give high flow trying this patient has refusing BiPAP. Continue oxygen supplementation to keep oxygen saturation between 88 to 92%. Recommend comfort measures if there is no clinical improvement in patient status. Please note the above document was generated using voice recognition software. It may contain grammatical, syntax or spelling errors. (2) Shortness of breath: (3) Parkinson disease: History of Present Illness Attending Physician: Anusha Saldaña MD History of Present Illness 69-year-old male with past medical history of severe Parkinson's disease status post brain stimulator placement, chronic hypoxic hypercapnic respiratory failure, questionable restrictive lung disease as per records, hypertension, chronic lymphedema and known aspiration risk was brought to the hospital because of worsening shortness of breath which is been going on since the last couple of days associated with cough-like symptoms. Coughing is usually with meals. Pulmonology was consulted for his underlying hypercapnia and lower extremity edema. At the time of examination today patient was still complaining of shortness of breath. He denied any chest pain, no dizziness, no headache, no nausea, no vomiting. Denies any dysuria, denies any diarrhea. No dizziness. He said that shortness of breath has been gradual since last week . He has been compliant with his medication except for last couple of days. At the time of examination patient was saturating 91% on 5 L nasal cannula with heart rate of 88 at rest. Patient is a poor historian history was obtained from previous chart. Allergies Allergy/AdvReac Type Severity Reaction Status Date / Time sulindac AdvReac Intermediate STOMACH Verified 01/21/20 05:28 IRRATION Home Medications Home Medications Medication Instructions Recorded Confirmed Type albuterol sulfate 2.5 mg INHALATION UD PRN 01/21/20 01/21/20 History carbidopa-levodopa 1 tab PO HS 01/21/20 01/21/20 History carbidopa-levodopa 1.5 tab PO 6XD 01/21/20 01/21/20 History cyanocobalamin (vitamin B-12) 1,500 mcg PO DAILY 01/21/20 01/21/20 History ferrous sulfate 325 mg PO BID 01/21/20 01/21/20 History fluticasone propionate 2 spray INTRANASAL DAILY 01/21/20 01/21/20 History furosemide 20 mg PO DAILY 01/21/20 01/21/20 History hydrocortisone [Proctosol HC] 1 applic [place] BID PRN 01/21/20 01/21/20 History lisinopril 10 mg PO DAILY 01/21/20 01/21/20 History metoprolol tartrate 25 mg PO BID 01/21/20 01/21/20 History omeprazole 20 mg PO QAM 01/21/20 01/21/20 History prednisone 40 mg PO DAILY PRN 01/21/20 01/21/20 History ropinirole 4 mg PO QID 01/21/20 01/21/20 History ropinirole 12 mg PO HS 01/21/20 01/21/20 History sildenafil 100 mg PO DAILY PRN 01/21/20 01/21/20 History sodium chloride [Saline Nasal Mist] 1 spray INTRANASAL DAILY PRN 01/21/20 01/21/20 History tamsulosin 0.4 mg PO HS 01/21/20 01/21/20 History trazodone 50 mg PO HS 01/21/20 01/21/20 History triamcinolone acetonide 1 applic TOPICAL BID 01/21/20 01/21/20 History Patient History Medical History (Updated 01/21/20 @ 11:41 by Laith Estrada MD) History of kidney stones (Chronic) HTN (hypertension) (Chronic) Hypercapnic respiratory failure Parkinson disease (Chronic) Surgical History (Updated 01/21/20 @ 05:03 by Maurice Ayers PA-C) H/O inguinal hernia repair (Chronic) H/O shoulder surgery (Chronic) S/P deep brain stimulator placement (Chronic) Social History Preferred Language: Spanish Communication Ability: Impaired Communication Ability Comment: garbeled speech Carding Utility Tender Required: No Beliefs That Will Affect Care: None Current Living Situation: Spouse Feels Safe at Home: Yes Safety Concerns: Feels Safe At This Time Smoking Status: Unknown if ever smoked Hx Alcohol Use: No Hx Substance Use: No Review of Systems Review of Systems: All systems reviewed & are unremarkable except as noted in HPI & below Physical Exam Physical Exam: Constitutional: No acute distress HEENT: EOMI, PERRLA, torticollis to the left Respiratory system: Decreased air entry bilateral lower lobes, no wheeze, no rhonchi, no crackles CVS: S1-S2 positive, no murmurs or gallops, accentuated P2 Abdomen: Soft, nontender, nondistended, positive bowel sounds x4 Extremities: +2 pulses bilaterally radialis/ dorsalis pedis, no cyanosis, +2 edema bilateral lower extremity Neuro: Awake alert oriented to self and place Psych: Normal mood and affect G/U: No [place] Skin: no rashes, warm and dry Lymphatic: no cervical or axillary lymphadenopathy Results & Data Results & Data ([facility]) Vital Signs (Past 12 Hours) Vital Signs Temp Pulse Pulse Resp BP BP Pulse Ox 01/21/20 09:00 36.7 C 81 96 H 22 164/90 H 91 01/21/20 07:35 71 20 131/76 93 01/21/20 07:00 81 20 134/75 94 01/21/20 06:12 80 26 H 99 01/21/20 06:00 77 32 H 115/70 99 01/21/20 05:30 80 26 H 122/67 100 01/21/20 05:02 23 97 01/21/20 05:01 100 01/21/20 05:00 77 23 135/79 100 01/21/20 04:49 37.3 C 71 24 135/79 87 L 01/21/20 11:07 01/21/20 11:07 01/21/20 01/21/20 05:00 11:07 ABG pH 7.30 L ABG pCO2 84 H ABG pO2 81 ABG HCO3 40 H ABG O2 Saturation 95.0 ABG Base Excess 10.5 H VBG pH 7.18 L VBG pCO2 101 H VBG pO2 77 VBG HCO3 37 VBG O2 Saturation 93.2 VBG Base Excess 5.5 PG Care Time/CCT Total # of Minutes Spent Total Time Spent with Patient: Total time spent is greater than 50% in coordination of care (as documented) at patient's floor/unit and/or counseling patient: [place] [address] Initial Inpt Care Lvl 3 Patient Type New Diagnoses Acute respiratory failure with hypercapnia J96.02 Shortness of breath R06.02 Parkinson disease G20
[2020-01-21 11:53] LABS: Ferritin 56.8 ng/ml (8-388)
[2020-01-21 11:59] LABS: Folate (Folic Acid) 12.11 ng/ml (>5.38)
[2020-01-21] MEDS: ROPINIROLE HCL 1 MG TABLET PO SCH ×3 (12:21→21:17)
[2020-01-21] MEDS: CARBIDOPA/LEVODOPA 25/100MG TAB PO SCH (12:22)
[2020-01-21] MEDS: METOPROLOL TARTRATE 25 MG TAB PO SCH ×2 (12:22→21:17)
[2020-01-21] MEDS: PANTOprazole 40 MG TAB PO SCH (12:22)
[2020-01-21] MEDS: INSULIN GLARGINE SOLOSTAR 100 UNITS/ML 3 ML PEN SC SCH (12:22)
[2020-01-21] MEDS: FERROUS SULFATE 325 MG TAB PO SCH ×2 (12:22→21:17)
[2020-01-21] MEDS: lisinopriL 10 MG TAB PO SCH (12:22)
[2020-01-21] MEDS: INSULIN ASPART 100 UNITS/ML 3 ML PEN SC SCH ×3 (12:23→23:12)
[2020-01-21] MEDS ORDERED: XOPENEX/ATROVENT 1.25mg/0.5MG NEB COMBO NEB SCH (13:00)
[2020-01-21] MEDS: PIPERACILLIN/TAZOBACTAM 3.375 GM in DEXTROSE 5% 100 ML IV SCH ×2 (13:01→21:18)
[2020-01-21] MEDS: LEVALBUTEROL 1.25MG/0.5ML NEB INH SCH ×2 (13:06→19:07)
[2020-01-21] MEDS: IPRATROPIUM BROMIDE NEB SOLN 0.02% 2.5 ML VIAL INH SCH ×2 (13:06→19:07)
--- NOTE | 2020-01-21 15:27 | Communication Note ---
Date of Service: January 21, 2020 Pt was seen and examined Lying in bed with respiratory distress He said that his breathing is slightly improved He denies any chest pain Initially he refused BIpap After I explained to him the process of BIPAP and agreed to tried Spoke to and provided with up date and agreed to try bipap He was able to tolerated it for 2 hrs Exam General- Acute respiratory distress Head- atraumatic Eyes- PERRL, EOMI, ENT- oropharynx clear Neck- supple, no JVD Lungs- coarse BS Heart- regular rhythm; no murmur Abdomen- normal bowel sounds, soft, nontender Extremities- +edema A/P Acute respiratory failure with hypercapnia possible due to restrictive secondary to underlying Parkinson's disease CXR showed cardiomegaly with volume overload and advanced congestive change. ABG 7.3 and Pco2 84 Initially refused Bipap Agreed to try after explaining to him in details Case discussed with pulmonology If pt refused bipap will do high flow oxygen Check ABG in am Continue Bipap prn and when sleep Will discontinue abx Speech on board and pt is very high risk for aspiration DVT px on SCDs
[2020-01-21] MEDS: TAMSULOSIN HCL 0.4 MG CAP PO SCH (21:17)
[2020-01-21] MEDS: DOXYCYCLINE HYCLATE 100 MG in DEXTROSE 5% 100 ML IV SCH (21:18)
[2020-01-21] MEDS: CARBIDOPA/LEVODOPA 50/200MG EXT REL TAB PO SCH (21:18)
--- NOTE | 2020-01-21 23:45 | Electrocardiogram Report ---
Test Reason : Blood Pressure : / mmHG Vent. Rate : 075 BPM Atrial Rate : 075 BPM P-R Int : 134 ms QRS Dur : 086 ms QT Int : 398 ms P-R-T Axes : 054 024 039 degrees QTc Int : 444 ms Sinus rhythm with Premature supraventricular complexes Otherwise normal ECG When compared with ECG of 20-APR-2018 23:08, Premature supraventricular complexes are now Present Confirmed by Conor Hunt ([id number]) on 01/21/2020 11:44:59 PM Referred By: REFERRED SELF Confirmed By:Conor Hunt
[2020-01-22] MEDS: LEVALBUTEROL 1.25MG/0.5ML NEB INH SCH ×4 (01:12→18:59)
[2020-01-22] MEDS: IPRATROPIUM BROMIDE NEB SOLN 0.02% 2.5 ML VIAL INH SCH ×4 (01:12→19:01)
[2020-01-22] MEDS: PIPERACILLIN/TAZOBACTAM 3.375 GM in DEXTROSE 5% 100 ML IV SCH ×2 (04:49→12:10)
[2020-01-22] MEDS: ROPINIROLE HCL 1 MG TABLET PO SCH ×4 (05:54→20:58)
[2020-01-22] MEDS: CARBIDOPA/LEVODOPA 25/100MG TAB PO SCH (05:55)
[2020-01-22 06:31] LABS: Basophils # (auto) 0.01 K/uL (0-0.2); Basophils % (auto) 0.1 %; Eosinophils # (auto) 0.03 K/uL (0-0.5); Eosinophils % (auto) 0.2 %; Hematocrit (blood only) 38.4 % (42-52); Hemoglobin 12.5 g/dL (14.0-18.0); Immature Granulocytes # (auto) 0.03 K/uL (0.00-0.02); Immature Granulocytes % (auto) 0.2 %; Lymphocytes # (auto) 1.23 K/uL (1.2-3.4); Mean Corpuscular Hgb Conc 32.6 g/dL (32-36); Mean Corpuscular Volume 92.1 fL (80-100); Mean Platelet Volume 9.5 fL (7.4-10.4); Monocytes # (auto) 1.07 K/uL (0.11-0.59); Monocytes % (auto) 6.9 %; Neutrophils # (auto) 13.05 K/uL (1.4-6.5); Neutrophils % (auto) 84.6 %; Platelet Count 244 K/uL (130-400); RDW Coefficient of Variation 14.4 % (11.5-14.5); RDW Standard Deviation 48.8 fL (36.4-46.3); Red Blood Count 4.17 M/uL (4.7-6.1); White Blood Count 15.42 K/uL (4.8-10.8)
[2020-01-22 07:09] LABS: BUN Creatinine Ratio 15.8 (10-20); Calcium 8.3 mg/dl (8.5-10.1); Est GFR (Non-African American) 94.9
[2020-01-22 07:28] LABS: Potassium 4.1 mmol/L (3.5-5.1)
[2020-01-22] MEDS ORDERED: methylPREDNISolone 40 MG in SYRINGE 0 ML IV SCH (08:00)
[2020-01-22] MEDS: PANTOprazole 40 MG TAB PO SCH (08:23)
[2020-01-22] MEDS: INSULIN ASPART 100 UNITS/ML 3 ML PEN SC SCH ×4 (08:23→20:15)
[2020-01-22] MEDS: FERROUS SULFATE 325 MG TAB PO SCH ×2 (08:24→20:59)
[2020-01-22] MEDS: INSULIN GLARGINE SOLOSTAR 100 UNITS/ML 3 ML PEN SC SCH (08:24)
[2020-01-22] MEDS: lisinopriL 10 MG TAB PO SCH (08:24)
[2020-01-22] MEDS: METOPROLOL TARTRATE 25 MG TAB PO SCH ×2 (08:24→20:59)
[2020-01-22] MEDS: DOXYCYCLINE HYCLATE 100 MG in DEXTROSE 5% 100 ML IV SCH ×2 (08:57→20:59)
[2020-01-22 09:12] LABS: Allen Test Pos (Pos); HCO3 ABG 39 mmol/L (19-24); PCO2 ABG 72 mmHg (35-46); PO2 ABG 73 mmHg (80-95); pH ABG 7.35 (7.35-7.45)
[2020-01-22] MEDS ORDERED: FUROSEMIDE 40 MG in SYRINGE 0 ML IV ONE (09:15)
--- NOTE | 2020-01-22 12:56 | Pulmonology Progress Note ---
Date of Service January 22, 2020 Assessment & Plan (1) Acute respiratory failure with hypercapnia: Chest x-ray 01/21/2020: Portable film, poor inspiratory effort, bilateral costophrenic angles are clean, retrocardiac is not clearly visualized. Increased hilar vascular markings. --Acute hypercapnic respiratory failure Etiology is most likely restrictive secondary to underlying Parkinson's disease on top of probable YOON In patients with have advanced Parkinson's disease diaphragmatic muscle as well as expiratory muscles are also involved, this was a time when they need noninvasive ventilation Patient needs noninvasive ventilation [id number] and as needed after that Importance of using noninvasive ventilation was explained to the patient and he is willing to use it even though he doesn't like it. --Chronic lower extremity edema Etiology is quite unclear, Doppler negative for DVT Patient has history of lymphedema bilateral lower extremities Could be secondary to pulmonary hypertension Follow-up 2D echo, BNP is within normal limit Diuresis as tolerated --Parkinson's disease Care as per primary team. --Hyponatremia Hypervolemic Hypotonic Treatment as per primary team Plan: ABG from today 7.35/72/73 on 5.5 L. Patient did use BiPAP for couple of hours yesterday. Although he did not like it but there is improvement in his PCO2. The importance of using BiPAP explained to the patient and he did say that he will use it even at home if he has a machine like this to help him breathe. Will consult case management for it. It is very important for the patient to have oxygen saturation no greater than 92% or else he will get apneic. Recommend 2D echo if not already done. Recommend de-escalating antibiotics. Due to chronic respiratory failure consequent to neuromuscular disease, patient now requires a noninvasive home ventilator. Bilevel therapy with and without a rate would be ineffective as patient requires a volume targeted mode. Ventilation is required to decrease work of breathing and improve pulmonary status. Interruption of ventilator support would lead to decline of health status. NIMV settings should be AVAPS-AE; Breath rate: auto; Inspiratory time:auto; Sigh: off; Tidal Volume: 350-450, PS min: 4-10 PS max: 12-20; EPAP min: 6-10; EPAP max: 10-16; AVAPS rate: 14 during sleep and as needed Please note the above document was generated using voice recognition software. It may contain grammatical, syntax or spelling errors. (2) Shortness of breath: (3) Parkinson disease: Admission and Anticipated Discharge Date Admission Date: January 21, 2020 Subjective Patient seen and examined at bedside. In respiratory distress mild. States that shortness of breath is still the same. He did use BiPAP yesterday for couple of hours although did not like it there is improvement in his blood gas today. Importance of using the BiPAP explained to the patient. I told him that if he d oes not use the BiPAP the chances of him making out of this hospital stay is not good. He understands that he said he is going to use the BiPAP more often. Denies any chest pain, no headache, no nausea or vomiting. Patient is urinating well. Review of Systems 2 Review of Systems: All systems reviewed & are unremarkable except as noted in HPI & below Physical Exam Physical Exam: Constitutional: In mild respiratory distress HEENT: EOMI, PERRLA, torticollis to the left Respiratory system: Decreased air entry bilateral lower lobes, more decreased on the left, no wheeze, no rhonchi, no crackles CVS: S1-S2 positive, no murmurs or gallops, accentuated P2 Abdomen: Soft, nontender, nondistended, positive bowel sounds x4 Extremities: +2 pulses bilaterally radialis/ dorsalis pedis, no cyanosis, +1 edema bilateral lower extremity Neuro: Awake alert oriented to self and place Psych: Normal mood and affect G/U: No Oliver Patient was saturating 98% on 4 L nasal cannula at rest with heart rate of 71. Went down on oxygen to 3 L. Skin: no rashes, warm and dry Lymphatic: no cervical or axillary lymphadenopathy Results & Data Results & Data ([facility]) Vital Signs (Past 12 Hours) Vital Signs Temp Pulse Pulse Resp BP Pulse Ox 01/22/20 11:29 36.8 C 72 22 168/87 H 94 01/22/20 08:39 84 01/22/20 07:28 69 18 96 01/22/20 07:01 36.9 C 93 H 20 150/79 H 91 01/22/20 04:55 37.0 C 77 20 149/87 H 93 01/22/20 01:12 66 16 90 01/22/20 06:09 01/22/20 06:09 PG Care Time/CCT Total # of Minutes Spent Total Time Spent with Patient: Total time spent is greater than 50% in coordination of care (as documented) at patient's floor/unit and/or counseling patient: Coding Level of Care Code 97650 Subseq Hosp Care Lvl 3 Diagnoses Acute respiratory failure with hypercapnia J96.02 Shortness of breath R06.02 Parkinson disease G20
--- NOTE | 2020-01-22 19:43 | Hospitalist Progress Note ---
Date of Service January 22, 2020 Assessment & Plan (1) Hypercapnic respiratory failure: Acute respiratory failure with hypercapnia possible due to restrictive secondary to underlying Parkinson's disease CXR showed cardiomegaly with volume overload and advanced congestive change. ABG 7.3 and Pco2 84 Initially refused Bipap Agreed to try BIpap after explaining to him in details Case discussed with pulmonology If pt refused bipap will do high flow oxygen He tried Bipap yesterday for 2 hrs ABG showed PH 7.35 and PCO2 72 Continue Bipap prn and when sleep Will discontinue IV zosyn for now abx Speech on board and pt is very high risk for aspiration Keep oxygen saturation no greater than 92% or else he will get apneic. Will try to get BIpap to use at home if continue to tolerate it while in the hospital Will get an ABG in am Volume overload CXR showed cardiomegaly with volume overload and advanced congestive change. Pro BNP normal Received Lasix IV today Echo pending Will assess in am for additional lasix IV Repeat CXR in am HTN BP elevated Continue Lisinopril and metoprolol Will consider to increase lisinopril to 20mg if BP does not improve Continue monitor BP Parkinson Dx Continue Carbidopa/Levodopa Elevated BS Possible related to sterooid Most recent Hba1c 6 On lantus and novolog sliding scale Monitor BS closely DVT px on SCDs CODE STATUS DNR Patient's requesting updates from providers. Ms. Dominique Lynn, contact #[phone]. Admission and Anticipated Discharge Date Admission Date: January 21, 2020 Subjective Pt was seen and examined Lying in bed with mild respiratory distress Pt said that he is having difficulty to breath today He agreed to use the Bipap PRN today Denies any chest pain, palpitation and fever Physical Exam Physical Exam: General- Acute respiratory distress Head- atraumatic Eyes- PERRL, EOMI, ENT- oropharynx clear Neck- supple, no JVD Lungs- coarse BS Heart- regular rhythm; no murmur Abdomen- normal bowel sounds, soft, nontender Extremities- +edema Results & Data Results & Data ([facility]) Vital Signs (Past 12 Hours) Vital Signs Temp Pulse Pulse Resp BP Pulse Ox 01/22/20 19:01 87 24 94 01/22/20 18:44 37.3 C 91 H 20 169/93 H 91 01/22/20 15:40 37.3 C 83 22 168/90 H 92 01/22/20 15:06 86 01/22/20 13:14 94 H 18 93 01/22/20 11:29 36.8 C 72 22 168/87 H 94 01/22/20 08:39 84
[2020-01-22] MEDS: CARBIDOPA/LEVODOPA 50/200MG EXT REL TAB PO SCH (20:58)
[2020-01-22] MEDS: TAMSULOSIN HCL 0.4 MG CAP PO SCH (20:59)
[2020-01-23] MEDS: IPRATROPIUM BROMIDE NEB SOLN 0.02% 2.5 ML VIAL INH SCH ×4 (00:42→19:39)
[2020-01-23] MEDS: LEVALBUTEROL 1.25MG/0.5ML NEB INH SCH ×4 (00:42→19:38)
[2020-01-23 04:52] LABS: Hematocrit (blood only) 38.3 % (42-52); Hemoglobin 12.5 g/dL (14.0-18.0); Mean Corpuscular Hemoglobin 29.9 pg (25-34); Mean Corpuscular Hgb Conc 32.6 g/dL (32-36); Mean Corpuscular Volume 91.6 fL (80-100); Mean Platelet Volume 9.4 fL (7.4-10.4); Platelet Count 237 K/uL (130-400); RDW Coefficient of Variation 14.5 % (11.5-14.5); Red Blood Count 4.18 M/uL (4.7-6.1); White Blood Count 12.21 K/uL (4.8-10.8)
[2020-01-23 05:05] LABS: Base Excess ABG 12.6 mEq/L (-9-1.8); HCO3 ABG 40 mmol/L (19-24); PCO2 ABG 63 mmHg (35-46); PO2 ABG 64 mmHg (80-95); pH ABG 7.41 (7.35-7.45)
[2020-01-23 05:06] LABS: Allen Test POS (Pos)
[2020-01-23 05:10] LABS: BUN Creatinine Ratio 17.1 (10-20); Calcium 8.2 mg/dl (8.5-10.1); Creatinine Clr Calc Pharmacy 123.8 ml/min; Potassium 3.9 mmol/L (3.5-5.1)
--- NOTE | 2020-01-23 07:05 | XRay Report ---
XR chest 1V portable CLINICAL HISTORY: 69 years-old Male presenting with f/u shortness of breath and wheezing. TECHNIQUE: Portable upright AP view of the chest was obtained. COMPARISON: 01/21/2020. FINDINGS: A stimulator device projects over the left hemithorax with leads coursing to the left neck. Atheroscl erosis of the aortic arch. Cardiac silhouette moderately enlarged. Bilateral hilar prominence presuma sherrei is vascular in etiology. Severe pulmonary vascular engorgement with advanced gestational prominen ce. Mildly low lung volumes. Patchy added density of the left lung base may be present. No other new focal opacity. No large effusion or pneumothorax. Reverse right total shoulder arthroplasty. Degenera tive changes of the left glenohumeral joint. Suspected large hiatal hernia. IMPRESSION: 1. Cardiomegaly with significant volume overload and congestive change. Developing pulmonary edema a t the left lung base may be present. Attention on follow-up. ACT 112: Negative or not required by law. Electronically signed by: Michael Bailey M.D. 01/23/2020 7:03 AM
[2020-01-23] MEDS: ROPINIROLE HCL 1 MG TABLET PO SCH ×4 (07:31→20:48)
[2020-01-23] MEDS: lisinopriL 10 MG TAB PO SCH (07:32)
[2020-01-23] MEDS: METOPROLOL TARTRATE 25 MG TAB PO SCH ×2 (07:32→20:49)
[2020-01-23] MEDS: FERROUS SULFATE 325 MG TAB PO SCH ×2 (07:32→20:48)
[2020-01-23] MEDS: PANTOprazole 40 MG TAB PO SCH (07:32)
[2020-01-23] MEDS: DOXYCYCLINE HYCLATE 100 MG in DEXTROSE 5% 100 ML IV SCH (07:37)
[2020-01-23] MEDS: INSULIN GLARGINE SOLOSTAR 100 UNITS/ML 3 ML PEN SC SCH (08:36)
[2020-01-23] MEDS: INSULIN ASPART 100 UNITS/ML 3 ML PEN SC SCH ×4 (08:38→21:05)
[2020-01-23] MEDS: CARBIDOPA/LEVODOPA 25/100MG TAB PO SCH (08:48)
--- NOTE | 2020-01-23 11:23 | Pulmonology Progress Note ---
Date of Service January 23, 2020 Assessment & Plan (1) Acute respiratory failure with hypercapnia: Chest x-ray 01/21/2020: Portable film, poor inspiratory effort, bilateral costophrenic angles are clean, retrocardiac is not clearly visualized. Increased hilar vascular markings. Chest x-ray 01/23/2020: Portable film, poor inspiratory effort, no significant change compared to previous chest x-ray. Increased hilar vascular markings, bilateral costophrenic. Angles are clean. --Acute hypercapnic respiratory failure Etiology is most likely restrictive secondary to underlying Parkinson's disease on top of probable YOON In patients with have advanced Parkinson's disease diaphragmatic muscle as well as expiratory muscles are also involved, this was a time when they need noninvasive ventilation Patient needs noninvasive ventilation [id number] and as needed after that Patient is willing to use noninvasive ventilation. --Chronic lower extremity edema Etiology is quite unclear, Doppler negative for DVT Patient has history of lymphedema bilateral lower extremities Could be secondary to pulmonary hypertension Follow-up 2D echo, BNP is within normal limit Diuresis as tolerated --Parkinson's disease Care as per primary team. --Hyponatremia Hypervolemic Hypotonic Treatment as per primary team Plan: ABG from today 7.41/63/64 on 3 L nasal cannula Patient is trying to use his BiPAP more frequently now. Case management on board and working on getting him trilogy. It is very important for the patient to have oxygen saturation no greater than 92% or else he will get apneic. Recommend 2D echo if not already done. Due to chronic respiratory failure consequent to neuromuscular disease, patient now requires a noninvasive home ventilator. Bilevel therapy with and without a rate would be ineffective as patient requires a volume targeted mode. Ventilation is required to decrease work of breathing and improve pulmonary status. Interruption of ventilator support would lead to decline of health status. NIMV settings should be AVAPS-AE; Breath rate: auto; Inspiratory time:auto; Sigh: off; Tidal Volume: 350-450, PS min: 4-10 PS max: 12-20; EPAP min: 6-10; EPAP max: 10-16; AVAPS rate: 14 during sleep and as needed Please note the above document was generated using voice recognition software. It may contain grammatical, syntax or spelling errors. (2) Shortness of breath: (3) Parkinson disease: Admission and Anticipated Discharge Date Admission Date: January 21, 2020 Subjective Patient seen and examined at bedside. No acute distress, no adverse events overnight. On asking how he is feeling he says he feels better than before he came into the hospital. Shortness of breath is still evident as it is using accessory muscles. Denies any chest pain, urinating well. No headache, no dizziness. Is using BiPAP more frequently now. Importance of using BiPAP again explained to the patient. Review of Systems Review of Systems: All systems reviewed & are unremarkable except as noted in HPI & below Physical Exam Physical Exam: Constitutional: Mild respiratory distress HEENT: EOMI, PERRLA, torticollis to the left Respiratory system: Decreased air entry bilateral lower lobes, more decreased on the left, no wheeze, no rhonchi, no crackles CVS: S1-S2 positive, no murmurs or gallops, accentuated P2 Abdomen: Soft, nontender, nondistended, positive bowel sounds x4 Extremities: +2 pulses bilaterally radialis/ dorsalis pedis, no cyanosis, +1 edema bilateral lower extremity Neuro: Awake alert oriented to self and place Psych: Normal mood and affect G/U: No Oliver Skin: no rashes, warm and dry Lymphatic: no cervical or axillary lymphadenopathy Results & Data Results & Data ([facility]) Vital Signs (Past 12 Hours) Vital Signs Temp Pulse Pulse Resp BP Pulse Ox 01/23/20 07:43 36.9 C 88 22 168/85 H 92 01/23/20 07:08 82 22 93 01/23/20 00:44 60 60 26 H 98 01/23/20 00:05 71 01/22/20 23:25 71 26 H 97 01/23/20 04:46 01/23/20 04:46 Intake & Output 01/21/20 01/22/20 01/23/20 01/24/20 06:59 06:59 06:59 06:59 Intake Total 870.5 / 870.5 1345 / 1345 110 / 110 Output Total 2901 / 2901 2800 / 2800 Balance -2030.5 / -2030.5 -1455 / -1455 110 / 110 Weight 98.9 kg 87.6 kg PG Care Time/CCT Total # of Minutes Spent Total Time Spent with Patient: Total time spent is greater than 50% in coordination of care (as documented) at patient's floor/unit and/or counseling patient: Coding Level of Care Code 97483 Subseq Hosp Care Lvl 3 Diagnoses Acute respiratory failure with hypercapnia J96.02 Shortness of breath R06.02 Parkinson disease G20
--- NOTE | 2020-01-23 14:18 | Hospitalist Progress Note ---
Date of Service January 23, 2020 Assessment & Plan (1) Hypercapnic respiratory failure: Admitted with sob : Acute respiratory failure with hypercapnia possible due to restrictive lung disease secondary to underlying Parkinson's disease appreciate input from Pulm per Pulkaylah noted : ABG 01/23/20: 7.41/63/64 on 3 L nasal cannula pt will need home Trilogy -Case management on board It is very important for the patient to have oxygen saturation no greater than 92% or else he will get apneic/will develop co2 retention Due to chronic respiratory failure consequent to neuromuscular disease, patient now requires a noninvasive home ventilator. Bilevel therapy with and without a rate would be ineffective as patient requires a volume targeted mode. Ventilation is required to decrease work of breathing and improve pulmonary st atus. Interruption of ventilator support would lead to decline of health status. Decompensated CHF with diastolic heart failure ( HFpEF) CXR showed cardiomegaly with volume overload and advanced congestive change. Pro BNP normal given X1 dose Lasix IV monitor vol status /ECHO ordered -report pending will start pt on daily low dose 20 mg Lasix Hyponatremia appears to be chronic possible underlying SIADH ? due to chronic respiratory failure will check serum and urine osm ordered for fluid restriction 1800ml/daily repeat BMP in am HTN Continue Lisinopril and metoprolol added Lasix 20 mg daily Continue monitor BP Parkinson Dx Continue Carbidopa/Levodopa TYPE 2 DM : Most recent Hba1c 6 On lantus and novolog sliding scale DVT px on SCDs CODE STATUS DNR Patient's requesting updates from providers. Ms. Dominique Lynn, contact #[phone]. Admission and Anticipated Discharge Date Admission Date: January 21, 2020 Subjective denies of any SOB no cough or fever or chills wants to know when can be discharged home Review of Systems Review of Systems: All systems reviewed & are unremarkable except as noted in HPI & below Physical Exam Constitutional: WD/WN, vitals as above + ill appearing Eyes: PERRL, conjunctivae normal, anicteric sclerae ENMT: external ear and nose normal, oropharynx normal Neck: trachea midline, no thyromegaly Respiratory: no respiratory distress Auscultation: + diminished lung sounds, + rales and + rhonchi Cardiovascular: Rate/Rhythm: regular rate and regular rhythm Extremities: no edema Gastrointestinal (Abdomen): normal bowel sounds, soft, nontender, no hepatosplenomegaly Musculoskeletal: no cyanosis or clubbing, extremities motor strength 5/5 Neurologic: PERRL, EOMI, accommodation nl, no face palsy, no dysarthria Psychiatric: A+Ox3, euthymic affect Results & Data Results & Data ([facility]) Vital Signs (Past 12 Hours) Vital Signs Temp Pulse Resp BP Pulse Ox Pulse Ox Pulse Ox 01/23/20 13:25 92 95 01/23/20 13:19 74 18 94 01/23/20 07:43 36.9 C 88 22 168/85 H 92 01/23/20 07:08 82 22 93
[2020-01-23] MEDS: FUROSEMIDE 20 MG TAB PO SCH (15:56)
[2020-01-23] MEDS: TAMSULOSIN HCL 0.4 MG CAP PO SCH (20:48)
[2020-01-23] MEDS: CARBIDOPA/LEVODOPA 50/200MG EXT REL TAB PO SCH (20:49)
[2020-01-24] MEDS: LEVALBUTEROL 1.25MG/0.5ML NEB INH SCH ×4 (00:48→18:49)
[2020-01-24] MEDS: IPRATROPIUM BROMIDE NEB SOLN 0.02% 2.5 ML VIAL INH SCH ×4 (00:48→18:49)
[2020-01-24 07:20] LABS: BUN Creatinine Ratio 16.9 (10-20); Calcium 8.3 mg/dl (8.5-10.1); Creatinine Clr Calc Pharmacy 128.6 ml/min; Est GFR (African American) 120.6; Potassium 3.8 mmol/L (3.5-5.1)
[2020-01-24] MEDS: PANTOprazole 40 MG TAB PO SCH (07:35)
[2020-01-24] MEDS: FUROSEMIDE 20 MG TAB PO SCH (07:35)
[2020-01-24] MEDS: ROPINIROLE HCL 1 MG TABLET PO SCH ×4 (07:36→20:11)
[2020-01-24] MEDS: FERROUS SULFATE 325 MG TAB PO SCH ×2 (07:36→20:09)
[2020-01-24] MEDS: INSULIN ASPART 100 UNITS/ML 3 ML PEN SC SCH ×4 (08:44→20:23)
[2020-01-24] MEDS: CARBIDOPA/LEVODOPA 25/100MG TAB PO SCH (08:44)
[2020-01-24] MEDS: METOPROLOL TARTRATE 25 MG TAB PO SCH ×2 (08:44→20:10)
[2020-01-24] MEDS: lisinopriL 10 MG TAB PO SCH (08:44)
[2020-01-24] MEDS: INSULIN GLARGINE SOLOSTAR 100 UNITS/ML 3 ML PEN SC SCH (08:46)
[2020-01-24] MEDS ORDERED: Nursing to Pharmacy Communication ONE (09:17)
[2020-01-24] MEDS ORDERED: SODIUM CHLORIDE 0.65% NA SOLN 45 ML (OCEAN) PRN (09:25)
--- NOTE | 2020-01-24 17:14 | Hospitalist Progress Note ---
Date of Service January 24, 2020 Assessment & Plan (1) Hypercapnic respiratory failure: symptoms has resolved respiratory status improved to baseline with Bipap at night Admitted with sob : Acute on chronic respiratory failure with hypercapnia possible due to restrictive lung disease secondary to underlying Parkinson's disease appreciate input from Pulm per Pulm noted : ABG 01/23/20: 7.41/63/64 on 3 L nasal cannula -Case management on board -arrangements made for home Trilogy It is very important for the patient to have oxygen saturation no greater than 92% or else he will get apneic/will develop co2 retention Due to chronic respiratory failure consequent to neuromuscular disease, patient now requires a noninvasive home ventilator. Bilevel therapy with and without a rate would be ineffective as patient requires a volume targeted mode. Ventilation is required to decrease work of breathing and improve pulmonary status. Interruption of ventilator support would lead to decline of health status. Decompensated CHF with diastolic heart failure ( HFpEF) stable now CXR showed cardiomegaly with volume overload and advanced congestive change. Pro BNP normal cont Lasix 20 mg daily RIGHT LEG WOUND INFECTION : wound culture : staph aureus pt is started on PO Doxycyline , needs 5-7 days of tx POSITIVE URINE CULTURE : urine culture gram negative bacilli with no urinary symptoms possible asymptomatic bacteruria , no treatment needed Hyponatremia appears to be chronic possible underlying SIADH ? due to chronic respiratory failure will consult nephrology fluid restriction 1500ml/daily cont Lasix 20 mg daily will need out pt BMP check in 1 week after discharge HTN Continue Lisinopril and metoprolol added Lasix 20 mg daily Continue monitor BP Parkinson Dx Continue Carbidopa/Levodopa TYPE 2 DM : Most recent Hba1c 6 On lantus and novolog sliding scale DVT px on SCDs CODE STATUS DNR Ms. Dominique Lynn, contact #[phone]. spoke with PT's over the phone , wants pt to return home with home health , already has home 02 arrangements made for home delivery of Trilogy tomorrow plan to discharge pt home tomorrow afternoon Admission and Anticipated Discharge Date Admission Date: January 21, 2020 Subjective offers no new complain tolerating BIPAP no cough or fever or chills eager to be discharged home today Review of Systems Review of Systems: All systems reviewed & are unremarkable except as noted in HPI & below Respiratory: no cough, no dyspnea, no dyspnea on exertion and no wheezing Physical Exam Constitutional: WD/WN, vitals as above no acute distress Eyes: PERRL, conjunctivae normal, anicteric sclerae ENMT: external ear and nose normal, oropharynx normal Neck: trachea midline, no thyromegaly Respiratory: no respiratory distress Auscultation: + diminished lung sounds Cardiovascular: Rate/Rhythm: regular rate and regular rhythm Extremities: no edema Gastrointestinal (Abdomen): normal bowel sounds, soft, nontender, no hepatosplenomegaly Musculoskeletal: no cyanosis or clubbing, extremities motor strength 5/5 Neurologic: PERRL, EOMI, accommodation nl, no face palsy, no dysarthria Psychiatric: A+Ox3, euthymic affect Results & Data Results & Data ([facility]) Vital Signs (Past 12 Hours) Vital Signs Temp Pulse Resp BP Pulse Ox 01/24/20 15:00 37.0 C 82 22 166/96 H 92 01/24/20 13:02 61 16 94 01/24/20 07:04 85 18 92 01/24/20 07:00 36.8 C 83 22 158/88 H 95
--- NOTE | 2020-01-24 17:17 | Pulmonology Progress Note ---
Date of Service January 24, 2020 Assessment & Plan (1) Acute respiratory failure with hypercapnia: Chest x-ray 01/21/2020: Portable film, poor inspiratory effort, bilateral costophrenic angles are clean, retrocardiac is not clearly visualized. Increased hilar vascular markings. Chest x-ray 01/23/2020: Portable film, poor inspiratory effort, no significant change compared to previous chest x-ray. Increased hilar vascular markings, bilateral costophrenic. Angles are clean. --Acute hypercapnic respiratory failure Etiology is most likely restrictive secondary to underlying Parkinson's disease on top of probable YOON In patients with have advanced Parkinson's disease diaphragmatic muscle as well as expiratory muscles are also involved, this was a time when they need noninvasive ventilation Patient needs noninvasive ventilation [id number] and as needed after that Patient is willing to use noninvasive ventilation. --Chronic lower extremity edema Etiology is quite unclear, Doppler negative for DVT Patient has history of lymphedema bilateral lower extremities Could be secondary to pulmonary hypertension Follow-up 2D echo, BNP is within normal limit Diuresis as tolerated --Parkinson's disease Care as per primary team. Plan: Continue with BiPAP PRN and nightly Case management on board and working on getting him trilogy. It is very important for the patient to have oxygen saturation no greater than 92% or else he will get apneic. Continue course of doxycycline for total of 7 days. No further recommendations from pulmonary perspective. Will sign off, recall if needed. Due to chronic respiratory failure consequent to neuromuscular disease, patient now requires a noninvasive home ventilator. Bilevel therapy with and without a rate would be ineffective as patient requires a volume targeted mode. Ventilation is required to decrease work of breathing and improve pulmonary status. Interruption of ventilator support would lead to decline of health status. NIMV settings should be AVAPS-AE; Breath rate: auto; Inspiratory time:auto; Sigh: off; Tidal Volume: 350-450, PS min: 4-10 PS max: 12-20; EPAP min: 6-10; EPAP max: 10-16; AVAPS rate: 14 during sleep and as needed Please note the above document was generated using voice recognition software. It may contain grammatical, syntax or spelling errors. (2) Shortness of breath: (3) Parkinson disease: Admission and Anticipated Discharge Date Admission Date: January 21, 2020 Subjective Patient seen and examined at bedside. No acute distress, no adverse events overnight. Patient states that he is feeling much better. Shortness of breath is improved. When you look at him he still uses accessory muscles although the intensity of accessory muscles have decrease. Good appetite. Denies any chest pain, no dysuria. Urinating well. States that he has been using BiPAP. He is tolerating it well. Review of Systems Review of Systems: All systems reviewed & are unremarkable except as noted in HPI & below Physical Exam Physical Exam: Constitutional: Mild respiratory distress HEENT: EOMI, PERRLA, torticollis to the left Respiratory system: Decreased air entry bilateral lower lobes, more decreased on the left, no wheeze, no rhonchi, no crackles CVS: S1-S2 positive, no murmurs or gallops, accentuated P2 Abdomen: Soft, nontender, nondistended, positive bowel sounds x4 Extremities: +2 pulses bilaterally radialis/ dorsalis pedis, no cyanosis, +1 edema bilateral lower extremity Neuro: Awake alert oriented to self and place Psych: Normal mood and affect G/U: No Oliver Skin: no rashes, warm and dry Lymphatic: no cervical or axillary lymphadenopathy Results & Data Results & Data ([facility]) Vital Signs (Past 12 Hours) Vital Signs Temp Pulse Resp BP Pulse Ox 01/24/20 15:00 37.0 C 82 22 166/96 H 92 01/24/20 13:02 61 16 94 01/24/20 07:04 85 18 92 01/24/20 07:00 36.8 C 83 22 158/88 H 95 01/23/20 04:46 01/24/20 05:55 PG Care Time/CCT Total # of Minutes Spent Total Time Spent with Patient: Total time spent is greater than 50% in coordina tion of care (as documented) at patient's floor/unit and/or counseling patient: Coding Level of Care Code 31443 Subseq Hosp Care Lvl 3 Diagnoses Acute respiratory failure with hypercapnia J96.02 Shortness of breath R06.02 Parkinson disease G20
[2020-01-24] MEDS: DOXYCYCLINE HYCLATE 100 MG CAP PO SCH (18:22)
[2020-01-24] MEDS: TAMSULOSIN HCL 0.4 MG CAP PO SCH (20:09)
[2020-01-24] MEDS: CARBIDOPA/LEVODOPA 50/200MG EXT REL TAB PO SCH (20:10)
[2020-01-25] MEDS: LEVALBUTEROL 1.25MG/0.5ML NEB INH SCH ×2 (00:45→06:52)
[2020-01-25] MEDS: IPRATROPIUM BROMIDE NEB SOLN 0.02% 2.5 ML VIAL INH SCH ×2 (00:46→06:52)
[2020-01-25] MEDS: DOXYCYCLINE HYCLATE 100 MG CAP PO SCH (05:53)
[2020-01-25 07:53] LABS: BUN Creatinine Ratio 15.6 (10-20); Calcium 8.4 mg/dl (8.5-10.1); Creatinine Clr Calc Pharmacy 126.5 ml/min; Est GFR (African American) 119.8; Est GFR (Non-African American) 103.3; Potassium 4.2 mmol/L (3.5-5.1)
[2020-01-25] MEDS: METOPROLOL TARTRATE 25 MG TAB PO SCH (08:09)
[2020-01-25] MEDS: FUROSEMIDE 20 MG TAB PO SCH (08:09)
[2020-01-25] MEDS: FERROUS SULFATE 325 MG TAB PO SCH (08:09)
[2020-01-25] MEDS: ROPINIROLE HCL 1 MG TABLET PO SCH (08:09)
[2020-01-25] MEDS: PANTOprazole 40 MG TAB PO SCH (08:10)
[2020-01-25] MEDS: lisinopriL 10 MG TAB PO SCH (08:10)
[2020-01-25] MEDS: CARBIDOPA/LEVODOPA 25/100MG TAB PO SCH (08:10)
[2020-01-25] MEDS: INSULIN ASPART 100 UNITS/ML 3 ML PEN SC SCH (08:55)
[2020-01-25] MEDS: INSULIN GLARGINE SOLOSTAR 100 UNITS/ML 3 ML PEN SC SCH (08:55)
--- NOTE | 2020-01-25 09:56 | Nephrology Consultation ---
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 Urine osmolality of 407, serum osmolality of 271 consistent with hypovolemia also SIADH. Chest x-ray showed cardiomegaly and pulmonary vascular congestion as well as edema on admission which has now resolved. I discussed pathophysiology of hyponatremia with the patient. Goals of treatment will be fluid restriction and diuresis. -Recommend increasing Lasix 20 mg p.o. twice daily and tighten fluid restriction to 1.2 L daily. Patient can be discharged on the same. He will need a follow- up BMP in a week. PCP can refer to nephrology if sodium continues to be low. (2) HTN (hypertension): Blood pressure is above target today. Continue current regimen. We are increasing diuresis which will also help with the blood pressure. (3) Acute respiratory failure with hypercapnia: Due to COPD and volume overload. Diuresis as above. Continue oxygen and BIPAP as needed History of Present Illness Reason for Consultation: Hyponatremia Requesting Physician: Frieda Vega MD Attending Physician: Frieda Vega MD History of Present Illness This is a 69-year-old male with history of chronic respiratory failure on BiPAP at night, COPD, Parkinson's disease, hypertension, BPH and renal stones who was admitted on 01/21/2020 with acute on chronic respiratory failure. He was found to have sodium of 129 on admission and sodium stagnated around 129 until today when increased to 130. His respiratory failure was likely due to combination of COPD and pulmonary edema. Chest x-ray done on 01/23/2020 showed cardiomegaly and pulmonary vascular congestion. Today he feels better and eager to be discharged home. His breathing is improved. He still on oxygen nasal cannula. He is on a fluid restriction of 1.5 L and Lasix 20 mg daily. Leg swelling has improved. He lives in [place] with . They have 1 adult child. He ambulates with walker and is on disability due to advanced Parkinson's disease. He reported urinary frequency but no dysuria. Allergies Allergy/AdvReac Type Severity Reaction Status Date / Time sulindac AdvReac Intermediate STOMACH Verified 01/21/20 05:28 IRRATION Home Medications Home Medications Medication Instructions Recorded Confirmed Type albuterol sulfate 2.5 mg INHALATION UD PRN 01/21/20 01/21/20 History carbidopa-levodopa 1 tab PO HS 01/21/20 01/21/20 History carbidopa-levodopa 1.5 tab PO 6XD 01/21/20 01/21/20 History cyanocobalamin (vitamin B-12) 1,500 mcg PO DAILY 01/21/20 01/21/20 History ferrous sulfate 325 mg PO BID 01/21/20 01/21/20 History fluticasone propionate 2 spray INTRANASAL DAILY 01/21/20 01/21/20 History hydrocortisone [Proctosol HC] 1 applic [place] BID PRN 01/21/20 01/21/20 History lisinopril 10 mg PO DAILY 01/21/20 01/21/20 History metoprolol tartrate 25 mg PO BID 01/21/20 01/21/20 History omeprazole 20 mg PO QAM 01/21/20 01/21/20 History prednisone 40 mg PO DAILY PRN 01/21/20 01/21/20 History ropinirole 4 mg PO QID 01/21/20 01/21/20 History ropinirole 12 mg PO HS 01/21/20 01/21/20 History sildenafil 100 mg PO DAILY PRN 01/21/20 01/21/20 History sodium chloride [Saline Nasal Mist] 1 spray INTRANASAL DAILY PRN 01/21/20 01/21/20 History tamsulosin 0.4 mg PO HS 01/21/20 01/21/20 History trazodone 50 mg PO HS 01/21/20 01/21/20 History triamcinolone acetonide 1 applic TOPICAL BID 01/21/20 01/21/20 History furosemide 20 mg PO BID #60 tab 01/25/20 Rx Patient History Medical History (Updated 01/25/20 @ 09:56 by Kareem Guerra MD) History of kidney stones (Chronic) HTN (hypertension) (Chronic) Hypercapnic respiratory failure Parkinson disease (Chronic) Surgical History (Updated 01/21/20 @ 05:03 by Maurice Ayers PA-C) H/O inguinal hernia repair (Chronic) H/O shoulder surgery (Chronic) S/P deep brain stimulator placement (Chronic) Social History Preferred Language: Wolof Communication Ability: Impaired Communication Ability Comment: garbeled speech Behaviorist Required: No Beliefs That Will Affect Care: None marital status: Current Living Situation: Spouse Feels Safe at Home: Yes Safety Concerns: Feels Safe At This Time Smoking Status: Unknown if ever smoked Hx Alcohol Use: No Hx Substance Use: No Review of Systems Review of Systems: All systems reviewed & are unremarkable except as noted in HPI & below Physical Exam Physical Exam: General exam: Appears comfortable, no acute distress HEENT: Pupils are equal and reactive to light Neck: No JVD, neck is supple trachea is midline Respiratory system: Has kyphosis, clear breath sounds bilaterally. Gastrointestinal: Abdomen is soft, non distended, non tender, bowel sounds are present CVS: Regular rate and rhythm. No murmurs, rubs or gallops Musculoskeletal: No joint or muscle tenderness Extremities: Non tender, no edema, peripheral pulses are present Neuro: Oriented, has motor slowness and rigidity Skin: No rashes Results & Data Vital Signs (Past 12 Hours) Vital Signs Temp Pulse Pulse Resp BP BP Pulse Ox 01/25/20 07:32 36.5 C 89 32 H 188/87 H 92 01/25/20 06:53 83 22 94 01/25/20 00:46 69 28 H 97 01/24/20 23:20 65 26 H 96 01/24/20 22:57 36.7 C 69 18 151/79 H 91 01/24/20 22:55 83 L Laboratory Results 01/25/20 06:54
[2020-01-25] MEDS ORDERED: IPRATROPIUM BROMIDE NEB SOLN 0.02% 2.5 ML VIAL INH PRN (10:12)
[2020-01-25] MEDS ORDERED: LEVALBUTEROL 1.25MG/0.5ML NEB INH PRN (10:12)
--- NOTE | 2020-01-25 10:18 | Hospitalist Progress Note ---
Date of Service January 25, 2020 Assessment & Plan (1) Hypercapnic respiratory failure: symptoms has resolved respiratory status improved to baseline with Bipap at night -Case management on board -arrangements made for home Trilogy appreciate input from Pulmonology Admitted with sob : Acute on chronic respiratory failure with hypercapnia possible due to restrictive lung disease secondary to underlying Parkinson's disease stable to be discharged home today Trilogy machine will be delivered home today Decompensated CHF with diastolic heart failure ( HFpEF) stable now CXR showed cardiomegaly with volume overload and advanced congestive change. Pro BNP normal lasix dose increased to 20 mg PO BID RIGHT LEG WOUND INFECTION : wound culture : staph aureus -MRSA PO Doxycyline ,-7 days of tx POSITIVE URINE CULTURE : urine culture gram negative bacilli with no urinary symptoms possible asymptomatic bacteruria , no treatment needed Hyponatremia Na level improved to day 130 appears to be chronic possible underlying SIADH /due to chronic respiratory failure appreciate consult form nephrology recommends : fluid restriction 1200ml/daily Lasix 20 mg BID will need out pt BMP check in 1 week after discharge HTN Continue Lisinopril and metoprolol /lasix Parkinson Dx Continue Carbidopa/Levodopa TYPE 2 DM : Most recent Hba1c 6 On lantus and novolog sliding scale DVT px on SCDs CODE STATUS DNR Ms. Dominique Lynn, contact #[phone]. stable to be discharged home today with home health Admission and Anticipated Discharge Date Admission Date: January 21, 2020 Subjective offers no complain feels fine ready to be discharged home today Physical Exam Constitutional: WD/WN, vitals as above no acute distress Eyes: PERRL, conjunctivae normal, anicteric sclerae ENMT: external ear and nose normal, oropharynx normal Neck: trachea midline, no thyromegaly Respiratory: no respiratory distress Auscultation: + diminished lung sounds Cardiovascular: Rate/Rhythm: regular rate and regular rhythm Extremities: no edema Gastrointestinal (Abdomen): normal bowel sounds, soft, nontender, no hepatosplenomegaly Musculoskeletal: no cyanosis or clubbing, extremities motor strength 5/5 Neurologic: PERRL, EOMI, accommodation nl, no face palsy, no dysarthria Psychiatric: A+Ox3, euthymic affect Results & Data Results & Data ([facility]) Vital Signs (Past 12 Hours) Vital Signs Temp Pulse Pulse Resp BP BP Pulse Ox 01/25/20 09:58 36.5 C 89 32 H 151/79 H 92 01/25/20 07:32 36.5 C 89 32 H 188/87 H 92 01/25/20 06:53 83 22 94 01/25/20 00:46 69 28 H 97 01/24/20 23:20 65 26 H 96 01/24/20 22:57 36.7 C 69 18 151/79 H 91 01/24/20 22:55 83 L
--- NOTE | 2020-01-25 11:23 | Discharge Summary ---
Date of Service January 25, 2020 Admission HPI Per Admitting Provider History obtained from patient, family, and records. Limited history from patient secondary lethargy. Medical history significant for chronic respiratory failure, COPD/restrictive lung disease as per records, possible YOON as per records, BiPAP intolerance as per records, Parkinson's disease status post deep brain stimulator placement, hypertension, PVD as per records, BPH as per records, past tobacco abuse, hx of MRSA, chronic lymphedema as per , known aspiration risk. Recent confinement July 2017 for hypercapnic respiratory failure. Intermittent BiPAP during confinement although patient intolerant as per . Patient initially discharged to [facility] for rehab then transitioned to home. 1 month history of worsening LE lymphedema swelling with some yellow drainage. No fever, no chills. Outpatient antibiotic Rx and as needed Lasix ordered. Patient denies chest pain or S OB. Last two days patient noted worsening shortness of breath and cough symptoms. Coughing if not careful with meals/water intake as per . Patient noted to be increasingly lethargic. Patient denies abdominal pain symptoms. Intermittent hemorrhoidal bleed as per patient . Patient brought to the ER for evaluation. Medical History as above Surgical History : Craniotomy for deep brain stimulator placement, hernia repair, tonsil tag removal, shoulder surgery Family History : Parkinson's disease, diabetes, heart disease, prostate cancer Personal/Social history : Past tobacco abuse, no EtOH intake, disabled Principal Diagnosis RESPIRATORY FAILURE /HYPONATREMIA /PERKINSONS DISEASE Discharge Exam Constitutional WD/WN, vitals as above no acute distress Eyes PERRL, conjunctivae normal, anicteric sclerae ENMT external ear and nose normal, oropharynx normal Neck trachea midline, no thyromegaly Respiratory no respiratory distress Auscultation: + diminished lung sounds Cardiovascular Rate/Rhythm: regular rate and regular rhythm Extremities: no edema Gastrointestinal (Abdomen) normal bowel sounds, soft, nontender, no hepatosplenomegaly Musculoskeletal no cyanosis or clubbing, extremities motor strength 5/5 Neurologic PERRL, EOMI, accommodation nl, no face palsy, no dysarthria Psychiatric A+Ox3, euthymic affect Discharge Data Allergies Allergy/AdvReac Type Severity Reaction Status Date / Time sulindac AdvReac Intermediate STOMACH Verified 01/21/20 05:28 IRRATION Consultations 01/21/20 05:45 ED Decision to Admit Stat 01/21/20 09:15 Consult Pulmonology Routine 01/22/20 12:48 Consult Case Management - Discharge Planning Routine 01/24/20 17:25 Consult Nephrology Routine Ordered Studies 01/21/20 06:51 CT head/brain wo con Urgent 01/21/20 10:30 US venous doppler LE Urgent Hospital Course (1) Hypercapnic respiratory failure: symptoms has resolved respiratory status improved to baseline with Bipap at night -Case management on board -arrangements made for home Trilogy appreciate input from Pulmonology Admitted with sob : Acute on chronic respiratory failure with hypercapnia possible due to restrictive lung disease secondary to underlying Parkinson's disease stable to be discharged home today Trilogy machine will be delivered home today Decompensated CHF with diastolic heart failure ( HFpEF) stable now CXR showed cardiomegaly with volume overload and advanced congestive change. Pro BNP normal lasix dose increased to 20 mg PO BID RIGHT LEG WOUND INFECTION : wound culture : staph aureus -MRSA PO Doxycyline ,-7 days of tx POSITIVE URINE CULTURE : urine culture gram negative bacilli with no urinary symptoms possible asymptomatic bacteruria , no treatment needed Hyponatremia Na level improved to day 130 appears to be chronic possible underlying SIADH /due to chronic respiratory failure appreciate consult form nephrology recommends : fluid restriction 1200ml/daily Lasix 20 mg BID will need out pt BMP check in 1 week after discharge HTN Continue Lisinopril and metoprolol /lasix Parkinson Dx Continue Carbidopa/Levodopa TYPE 2 DM : Most recent Hba1c 6 On lantus and novolog sliding scale DVT px on SCDs CODE STATUS DNR Ms. Domniique Lynn, contact #[phone]. stable to be discharged home today with home health Total Time Total Time Spent Total Time Spent (In Minutes): approx 35 mins Total Time Includes: Discharge Planning, Medication Reconciliation and Communication With Other Providers Discharge Plan Discharge Items Patient Disposition: Home - Home Health Services Reason For Visit: RESP FAILURE Discharge Diagnosis: RESPIRATORY FAILURE /HYPONATREMIA /PERKINSONS DISEASE Activity: Resume your previous activity Non-emergency contact: Primary Care Provider Call non-emergency contact if: you have any medication questions Follow-up/Referrals: Miguel Angel Curran, [Primary Care Provider] - 01/30/20 11:00 am (01/30/2020 11:00 AM Hugo Drake III, MD General Internal Medicine [facility] ) Diet: Heart Healthy Fluids: 1200ml (5 cups) Ambulatory Orders: Basic Metabolic Panel (Routine) Timeframe: 1 Week Location: Determined by Patient Ordered By: Frieda Morales Attending Provider Instructions: BLOOD WORK : BASIC METABOLIC PANEL IN 1 WEEK Pending Studies at Discharge: Yes Studies:: BASIC METABOLIC PANEL IN 1 WEEK Stand-Alone Forms: [facility], Smoking Cessation Medications and DC Order Prescriptions: New furosemide 20 mg tablet 20 mg PO BID Qty: 60 RF: 3 doxycycline hyclate 100 mg Capsule 100 mg PO BID Qty: 7 RF: 0 Continued carbidopa-levodopa 50-200 mg tablet extended release 1 tab PO HS RF: 0 tamsulosin 0.4 mg capsule 0.4 mg PO HS RF: 0 trazodone 50 mg tablet 50 mg PO HS RF: 0 lisinopril 10 mg tablet 10 mg PO DAILY RF: 0 omeprazole 20 mg capsule,delayed release(DR/EC) 20 mg PO QAM RF: 0 carbidopa-levodopa 25-100 mg tablet 1.5 tab PO 6XD RF: 0 ferrous sulfate 325 mg (65 mg iron) tablet 325 mg PO BID RF: 0 ropinirole 4 mg tablet 4 mg PO QID RF: 0 metoprolol tartrate 25 mg tablet 25 mg PO BID RF: 0 ropinirole 12 mg tablet extended release 24 hr 12 mg PO HS RF: 0 albuterol sulfate 2.5 mg /3 mL (0.083 %) Solution For Nebulization 2.5 mg INHALATION UD PRN (Reason: Shortness Of Breath Or Wheezing) RF: 0 prednisone 20 mg tablet 40 mg PO DAILY PRN (Reason: rescue kit) RF: 0 cyanocobalamin (vitamin B-12) 1,000 mcg Tablet 1,500 mcg PO DAILY RF: 0 sildenafil 100 mg Tablet 100 mg PO DAILY PRN (Reason: Erectile Dysfunction) RF: 0 triamcinolone acetonide 0.1 % cream 1 applic TOPICAL BID RF: 0 hydrocortisone [Proctosol HC] 2.5 % Cream With Perineal Applicator 1 applic [place] BID PRN (Reason: Hemorrhoids) RF: 0 fluticasone propionate 50 mcg/actuation spray,suspension 2 spray INTRANASAL DAILY RF: 0 sodium chloride [Saline Nasal Mist] 0.65 % Aerosol,[place] 1 spray INTRANASAL DAILY PRN (Reason: Nasal Congestion) RF: 0 Discharge Orders: Discharge Order (Routine); Ordered 01/25/20 Ordered By: Frieda Parks/Other Patient Handouts: A1C Admission Data Admit Date/Time: 01/21/20 06:51 Attending Provider: Frieda Vega Admit Provider: Estephania Garber Primary Care Provider: Miguel Angel Curran Other Providers: Raf Yang ; Alex Wharton ; Messi Mancini ; Camelia Rucker ; Jignesh Gupta ; Mary Carmen Lewis ; Raf Flores ; Ketan Ch ; Donya Ayers ; Vipul Tobias ; Laith Estrada ; Cecilia Zamora ; Aaron Molina ; Tess Corey ; Zoraida Sandoval ; Kareem Guerra Other Interventions: Discharge Summary Assessment (RN) Last Done: 01/25/20 09:58
[2020-01-25] MEDS ORDERED: FUROSEMIDE 20 MG TAB PO SCH (17:00)
== END 2020-01-25 12:01 | disposition home health service (06) | DRG 189 ==
LOC: ED 04:39 → 2W 06:51 → SUATTDRO 06:51 → 2W 07:35 → 3E 01-24 19:14

== ENCOUNTER 2021-07-30 23:17 | Inpatient (IN) ==
[2021-07-30] MEDS ORDERED: IBUPROFEN 800 MG TAB PO STA (23:20)
[2021-07-30] MEDS ORDERED: ALBUT/IPRATROP 3MG/0.5MG NEB 3 ML VIAL NEB STA (23:23)
[2021-07-30] MEDS ORDERED: SODIUM CHLORIDE 0.9% 1000ML 1,000 ML IV SCH (23:30)
[2021-07-30 23:58] LABS: Basophils # (auto) 0.01 K/uL (0-0.2); Basophils % (auto) 0.2 %; Eosinophils # (auto) 0.02 K/uL (0-0.5); Eosinophils % (auto) 0.3 %; Hematocrit (blood only) 36.5 % (42-52); Hemoglobin 11.7 g/dL (14.0-18.0); Immature Granulocytes # (auto) 0.01 K/uL (0.00-0.02); Immature Granulocytes % (auto) 0.2 %; Lymphocytes # (auto) 0.07 K/uL (1.2-3.4); Lymphocytes % (auto) 1.1 %; Mean Corpuscular Hemoglobin 27.7 pg (25-34); Mean Corpuscular Hgb Conc 32.1 g/dL (32-36); Mean Corpuscular Volume 86.5 fL (80-100); Mean Platelet Volume 9.6 fL (7.4-10.4); Monocytes # (auto) 0.11 K/uL (0.11-0.59); Monocytes % (auto) 1.7 %; Neutrophils # (auto) 6.35 K/uL (1.4-6.5); Neutrophils % (auto) 96.5 %; Platelet Count 252 K/uL (130-400); RDW Standard Deviation 47.6 fL (36.4-46.3); Red Blood Count 4.22 M/uL (4.7-6.1); White Blood Count 6.57 K/uL (4.8-10.8)
[2021-07-31 00:11] LABS: INR 1.1 (0.9-1.1); Partial Thromboplastin Ratio 1.1; Partial Thromboplastin Time 28.5 Seconds (21.0-31.0); Prothrombin Time 11.2 Seconds (9.0-12.0)
[2021-07-31 00:20] LABS: Alanine Aminotransferase < 6 U/L (12-78); Albumin Level 2.9 gm/dl (3.4-5.0); Aspartate Aminotransferase 10 U/L (15-37); BUN Creatinine Ratio 14.7 (10-20); Blood Urea Nitrogen 14 mg/dl (7-18); Calcium 8.3 mg/dl (8.5-10.1); Carbon Dioxide 32 mmol/L (21-32); Chloride 93 mmol/L (98-107); Creatinine Clr Calc Pharmacy 80.5 ml/min; Est GFR (Non-African American) 84.6 ml/min; Glucose 118 mg/dl (70-99); Magnesium 1.7 mg/dl (1.8-2.4); Potassium 4.1 mmol/L (3.5-5.1); Sodium 132 mmol/L (136-145)
[2021-07-31 00:21] LABS: Appearance Urine Cloudy (Clear); Bilirubin Urine 1+ (Negative); Blood Urine Trace-lysed (Negative); Color Urine Yellow; Glucose Urine UA Negative (Negative); Ketones Urine 1+ (Negative); Leukocyte Esterase Urine 1+ (Negative); Nitrite Urine Negative (Negative); Protein Urine 1+ (Negative); Specific Gravity Urine >= 1.030 (1.000-1.030); Urobilinogen Urine Negative (Negative); pH Urine 5.5 (4.5-7.5)
[2021-07-31 00:24] LABS: Albumin Globulin Ratio 0.8 (0.9-2); Alkaline Phosphatase 64 U/L (45-117); Bilirubin,Total 0.4 mg/dl (0.2-1); Globulin 3.7 gm/dl (2.5-4.0); Total Protein 6.6 gm/dl (6.4-8.2); Troponin I < 0.015 ng/ml (0-0.045)
[2021-07-31 00:41] LABS: Bacteria Urine 1+ (Negative); RBC Urine 0-4 /hpf (0-4); WBC Urine >30 /hpf (0-5)
[2021-07-31 00:47] LABS: Influenza A virus by PCR Negative (Negative); Influenza B virus by PCR Negative (Negative)
[2021-07-31] MEDS ORDERED: PIPERACILLIN/TAZOBACTAM 4.5 GM/120 ML BAG IV ONE (01:17)
[2021-07-31] MEDS ORDERED: PIPERACILL/TAZOBAC CONSULT ACTIVE PRN (01:17)
--- NOTE | 2021-07-31 01:17 | Emergency Department Note ---
History of Present Illness General Chief complaint: Urinary Symptoms Stated complaint: Fever, UTI Time Seen by Provider: 07/30/21 23:19 History of Present Illness This 71-year-old presents to the ER complaining of fever and generalized illness Location: Generalized Quality: Weak Severity: Moderate Duration: Past few days Timing: Started few days ago Context: Family was concerned and sent him in Modifying factors: better with rest; worse with activity Patient was started on Bactrim for UTI. He has been getting worse. He has a fever. He has been vaccinated for COVID-19. He received his flu vaccine. Patient denies chest pain, vomiting, vomiting, diarrhea. Patient complains of cough and generalized illness. Home Medications Medication Instructions Recorded Confirmed Type albuterol sulfate 2.5 mg INHALATION Q4 PRN 01/21/20 07/31/21 History carbidopa 25 mg-levodopa 100 mg 1.5 tab PO 6XD 01/21/20 07/31/21 History tablet carbidopa ER 50 mg-levodopa 200 mg 1 tab PO HS 01/21/20 07/31/21 History tablet,extended release cyanocobalamin (vitamin B-12) 1,500 mcg PO DAILY 01/21/20 07/31/21 History 1,000 mcg tablet fluticasone propionate 50 2 spray INTRANASAL DAILY 01/21/20 07/31/21 History mcg/actuation nasal spray,suspension hydrocortisone 2.5 % topical cream 1 applic [place] BID PRN 01/21/20 07/31/21 History with perineal applicator (Proctosol HC) lisinopril 10 mg tablet 10 mg PO DAILY 01/21/20 07/31/21 History omeprazole 20 mg capsule,delayed 20 mg PO QAM 01/21/20 07/31/21 History release prednisone 20 mg tablet 40 mg PO DAILY PRN 01/21/20 07/31/21 History ropinirole 4 mg tablet 4 mg PO QID 01/21/20 07/31/21 History sildenafil 100 mg tablet 100 mg PO DAILY PRN 01/21/20 07/31/21 History sodium chloride 0.65 % nasal spray 1 spray INTRANASAL DAILY PRN 01/21/20 07/31/21 History aerosol (Saline Nasal Mist) tamsulosin 0.4 mg capsule 0.4 mg PO HS 01/21/20 07/31/21 History triamcinolone acetonide 0.1 % 1 applic TOPICAL BID 01/21/20 07/31/21 History topical cream furosemide 20 mg tablet 20 mg PO BID #60 tab 01/25/20 07/31/21 Rx cholecalciferol (vitamin D3) 50 50 mcg PO DAILY 07/31/21 07/31/21 History mcg (2,000 unit) tablet (Vitamin D3) metronidazole 1 % topical gel 1 applic TOPICAL BID 07/31/21 07/31/21 History (Metrogel) omega-3 fatty acids 1,000 mg PO DAILY 07/31/21 07/31/21 History sulfamethoxazole 800 1 tab PO BID 07/31/21 07/31/21 History mg-trimethoprim 160 mg tablet Allergies Allergy/AdvReac Type Severity Reaction Status Date / Time sulindac AdvReac Intermediate STOMACH Verified 07/31/21 03:17 IRRATION Past Med/Surg History Medical History History of kidney stones HTN (hypertension) Hypercapnic respiratory failure Parkinson disease Surgical History H/O inguinal hernia repair H/O shoulder surgery S/P deep brain stimulator placement Social History Smoking Status: Unknown if ever smoked Tobacco Type: Cigarettes Hx Alcohol Use: No Hx Substance Use: No Preferred Language: Setswana Communication Ability: Impaired Sas Etl Developer Required: No Beliefs That Will Affect Care: None marital status: Current Living Situation: Spouse Feels Safe at Home: Yes Assistive Devices: Brace/Splint/Immobilizer and Oxygen - Continuous Review of Systems A total of 10 systems reviewed and were otherwise negative Physical Exam Vital Signs Vital Signs - 24 hr 07/30/21 23:41 07/30/21 23:54 07/30/21 23:57 Temperature 38 C H Temperature Source Oral Pulse Rate 94 H Pulse Rate [Apical] 76 Pulse Rate from SpO2 Sensor Respiratory Rate 20 18 18 Respiratory Effort / Characteristics Spontaneous Non-Labored Spontaneous Non-Labored Spontaneous Respiratory Depth Normal Respiratory Pattern Regular Blood Pressure 124/85 Blood Pressure Mean 98 Blood Pressure Position Sitting Pulse Oximetry 94 92 92 Oxygen Delivery Method Nasal Cannula Nasal Cannula Nasal Cannula Oxygen Flow Rate 4 2.5 2.5 Sepsis Recent Fever Within 48 Hours Yes Sepsis New/Unexplained Change in Mental Status No Sepsis Action Taken by Nursing No Action Required 07/31/21 00:00 07/31/21 00:30 07/31/21 01:00 Temperature Temperature Source Pulse Rate 99 H 94 H 91 H Pulse Rate [Apical] Pulse Rate from SpO2 Sensor 93 H 100 H 94 H Respiratory Rate 24 24 24 Respiratory Effort / Characteristics Respiratory Depth Respiratory Pattern Blood Pressure 105/59 L 118/76 122/72 Blood Pressure Mean 74 90 88 Blood Pressure Position Pulse Oximetry 92 96 96 Oxygen Delivery Method Nasal Cannula Nasal Cannula Nasal Cannula Oxygen Flow Rate 2.5 4 4 Sepsis Recent Fever Within 48 Hours Sepsis New/Unexplained Change in Mental Status Sepsis Action Taken by Nursing 07/31/21 01:30 07/31/21 02:30 07/31/21 03:00 Temperature Temperature Source Pulse Rate 95 H 86 86 Pulse Rate [Apical] Pulse Rate from SpO2 Sensor 96 H 87 87 Respiratory Rate 24 24 28 H Respiratory Effort / Characteristics Respiratory Depth Respiratory Pattern Blood Pressure 118/78 123/76 118/76 Blood Pressure Mean 91 91 90 Blood Pressure Position Pulse Oximetry 94 96 93 Oxygen Delivery Method Nasal Cannula Oxygen Flow Rate 4 Sepsis Recent Fever Within 48 Hours Sepsis New/Unexplained Change in Mental Status Sepsis Action Taken by Nursing VITALS: Vitals are noted on the nurse's note and reviewed by myself. Vital signs febrile. GENERAL: Moderately ill-appearing male, in no acute distress, SKIN: The skin was without rashes, erythema, edema, or bruising. There is no tenting of the skin. Capillary reflex less than 2 seconds. HEAD: Normocephalic atraumatic. EARS: External auditory canals clear, EYES: Pupils equal round and reactive to light and accommodation. Conjunctivae without injection, sclerae without icterus. Extraocular movements intact. NOSE: Patent, turbinates without inflammation or discharge. MOUTH: Mucous membranes moist. Pharynx without erythema or exudate. Uvula midline. Airway patent. Tongue does not deviate. NECK: Supple without nuchal rigidity. No lymphadenopathy. No thyromegaly. Cervical spine is nontender. No JVD. HEART: Regular rate and rhythm LUNGS: Clear to auscultation bilaterally without wheezes, rales or rhonchi. No retractions or accessory muscle use. ABDOMEN: Positive bowel sounds x 4. Normal tympanic percussion. Soft, nontender, without masses or organomegaly. Sullivan sign negative. No guarding or rebound tenderness. No CVA tenderness MUSCULOSKELETAL: No muscle atrophy, erythema, noted. NEURO: Patient was alert and oriented to person place and time. Normal sensation to light and sharp touch. No focal neurological deficits. Course Administered Medications Magnesium Sulfate/Dextrose (Magnesium Sulfate / D5w) 1 gm in 100 mls @ 50 mls/hr IV Q2H TAMMY Stop: 07/31/21 06:59 Last Admin: 07/31/21 05:31 Dose: 50 mls/hr Documented by: [id number] Infusion: 07/31/21 05:31 Dose: 50 mls/hr Documented by: [id number] Admin: 07/31/21 04:24 Dose: 50 mls/hr Documented by: [id number] Piperacillin Sod/Tazobactam (Sod 3.375 gm/ Dextrose) 115 mls @ 28.75 mls/hr IV Q8H TAMMY; Protocol Stop: 08/07/21 05:59 Last Admin: 07/31/21 05:57 Dose: 28.8 mls/hr Documented by: [id number] Discontinued Medications Albuterol (Albut/Ipratrop 3mg/0.5mg Neb 3 Ml Vial) 3 ml NEB NOW STA Stop: 07/30/21 23:24 Last Admin: 07/30/21 23:41 Dose: 3 ml Documented by: [id number] Piperacillin Sod/Tazobactam Sod (Zosyn) 4.5 gm in 120 mls @ 240 mls/hr IV NOW ONE Stop: 07/31/21 01:46 Last Infusion: 07/31/21 02:22 Dose: 0 mls/hr Documented by: [id number] Admin: 07/31/21 01:39 Dose: 240 mls/hr Documented by: [id number] Cefepime HCl (Maxipime) 2,000 mg in 20 mls @ 5 mls/min IV NOW STA; Protocol Stop: 07/31/21 02:33 Last Admin: 07/31/21 02:38 Dose: 5 mls/min Documented by: [id number] Ibuprofen (Ibuprofen 800 Mg Tab) 800 mg PO NOW STA Stop: 07/30/21 23:21 Last Admin: 07/31/21 00:13 Dose: 800 mg Documented by: [id number] Ioversol (Optiray 320 125ml) 120 ml IV ONCE ONE Stop: 07/31/21 02:33 Last Admin: 07/31/21 02:32 Dose: 120 ml Documented by: [id number] Methylprednisolone (Methylprednisolone 40 Mg/Ml Vial) 40 mg IV ONE STA Stop: 07/31/21 02:57 Last Admin: 07/31/21 03:33 Dose: 40 mg Documented by: [id number] Medical Decision Making Medical Records Attestation: I reviewed the patient's medical records. Home Medications Current Medication List: was personally reviewed by me Laboratory Data Attestation: I reviewed the patient's lab results. Result diagrams: 07/30/21 23:45 07/30/21 23:45 Lab Results 07/30/21 07/30/21 07/30/21 Range/Units 23:45 23:45 23:45 WBC 6.57 (4.8-10.8) K/uL RBC 4.22 L (4.7-6.1) M/uL Hgb 11.7 L (14.0-18.0) g/dL Hct 36.5 L (42-52) % MCV 86.5 (80-100) fL MCH 27.7 (25-34) pg MCHC 32.1 (32-36) g/dL RDW Std Deviation 47.6 H (36.4-46.3) fL RDW Coeff of Helen 15.0 H (11.5-14.5) % Plt Count 252 (130-400) K/uL MPV 9.6 (7.4-10.4) fL Immature Gran % (Auto) 0.2 % Neut % (Auto) 96.5 % Lymph % (Auto) 1.1 % Mcdonough % (Auto) 1.7 % Eos % (Auto) 0.3 % Baso % (Auto) 0.2 % Neut # (Auto) 6.35 (1.4-6.5) K/uL Lymph # (Auto) 0.07 L (1.2-3.4) K/uL Mcdonough # (Auto) 0.11 (0.11-0.59) K/uL Eos # (Auto) 0.02 (0-0.5) K/uL Baso # (Auto) 0.01 (0-0.2) K/uL Immature Gran # (Auto) 0.01 (0.00-0.02) K/uL PT 11.2 (9.0-12.0) Seconds INR 1.1 (0.9-1.1) APTT 28.5 (21.0-31.0) Seconds PTT Ratio 1.1 Sodium 132 L (136-145) mmol/L Potassium 4.1 (3.5-5.1) mmol/L Chloride 93 L (98-107) mmol/L Carbon Dioxide 32 (21-32) mmol/L Anion Gap 7.0 (3-11) BUN 14 (7-18) mg/dl Creatinine 0.92 (0.6-1.4) mg/dl Est Cr Clr Drug Dosing 80.5 ml/min Est GFR ( Amer) 98.0 ml/min Est GFR (Non-Af Amer) 84.6 ml/min BUN/Creatinine Ratio 14.7 (10-20) Glucose 118 H (70-99) mg/dl Lactate (0.4-2.0) mmol/L Calcium 8.3 L (8.5-10.1) mg/dl Magnesium 1.7 L (1.8-2.4) mg/dl Total Bilirubin 0.4 (0.2-1) mg/dl AST 10 L (15-37) U/L ALT < 6 L (12-78) U/L Alkaline Phosphatase 64 (45-117) U/L Troponin I < 0.015 (0-0.045) ng/ml NT-Pro-B Natriuret Pep 337 (0-900) pg/ml Total Protein 6.6 (6.4-8.2) gm/dl Albumin 2.9 L (3.4-5.0) gm/dl Globulin 3.7 (2.5-4.0) gm/dl Albumin/Globulin Ratio 0.8 L (0.9-2) Urine Color Urine Appearance (Clear) Urine pH (4.5-7.5) Ur Specific [place] (1.000-1.030) Urine Protein (Negative) Urine Glucose (UA) (Negative) Urine Ketones (Negative) Urine Blood (Negative) Urine Nitrite (Negative) Urine Bilirubin (Negative) Urine Urobilinogen (Negative) Ur Leukocyte Esterase (Negative) Urine RBC (0-4) /hpf Urine WBC (0-5) /hpf Ur Epithelial Cells (0-5) /lpf Urine Bacteria (Negative) SARS-CoV-2 (PCR) (Negative) Influ A Molecular Assay (Negative) Influ B Molecular Assay (Negative) 07/30/21 07/30/21 07/31/21 Range/Units 23:45 23:45 00:00 WBC (4.8-10.8) K/uL RBC (4.7-6.1) M/uL Hgb (14.0-18.0) g/dL Hct (42-52) % MCV (80-100) fL MCH (25-34) pg MCHC (32-36) g/dL RDW Std Deviation (36.4-46.3) fL RDW Coeff of Helen (11.5-14.5) % Plt Count (130-400) K/uL MPV (7.4-10.4) fL Immature Gran % (Auto) % Neut % (Auto) % Lymph % (Auto) % Mcdonough % (Auto) % Eos % (Auto) % Baso % (Auto) % Neut # (Auto) (1.4-6.5) K/uL Lymph # (Auto) (1.2-3.4) K/uL Mcdonough # (Auto) (0.11-0.59) K/uL Eos # (Auto) (0-0.5) K/uL Baso # (Auto) (0-0.2) K/uL Immature Gran # (Auto) (0.00-0.02) K/uL PT (9.0-12.0) Seconds INR (0.9-1.1) APTT (21.0-31.0) Seconds PTT Ratio Sodium (136-145) mmol/L Potassium (3.5-5.1) mmol/L Chloride (98-107) mmol/L Carbon Dioxide (21-32) mmol/L Anion Gap (3-11) BUN (7-18) mg/dl Creatinine (0.6-1.4) mg/dl Est Cr Clr Drug Dosing ml/min Est GFR ( Amer) ml/min Est GFR (Non-Af Amer) ml/min BUN/Creatinine Ratio (10-20) Glucose (70-99) mg/dl Lactate 0.7 (0.4-2.0) mmol/L Calcium (8.5-10.1) mg/dl Magnesium (1.8-2.4) mg/dl Total Bilirubin (0.2-1) mg/dl AST (15-37) U/L ALT (12-78) U/L Alkaline Phosphatase (45-117) U/L Troponin I (0-0.045) ng/ml NT-Pro-B Natriuret Pep (0-900) pg/ml Total Protein (6.4-8.2) gm/dl Albumin (3.4-5.0) gm/dl Globulin (2.5-4.0) gm/dl Albumin/Globulin Ratio (0.9-2) Urine Color Yellow Urine Appearance Cloudy A (Clear) Urine pH 5.5 (4.5-7.5) Ur Specific [place] >= 1.030 (1.000-1.030) Urine Protein 1+ H (Negative) Urine Glucose (UA) Negative (Negative) Urine Ketones 1+ H (Negative) Urine Blood Trace-lysed H (Negative) Urine Nitrite Negative (Negative) Urine Bilirubin 1+ H (Negative) Urine Urobilinogen Negative (Negative) Ur Leukocyte Esterase 1+ H (Negative) Urine RBC 0-4 (0-4) /hpf Urine WBC >30 H (0-5) /hpf Ur Epithelial Cells 5-10 H (0-5) /lpf Urine Bacteria 1+ H (Negative) SARS-CoV-2 (PCR) NEGATIVE (Negative) Influ A Molecular Assay (Negative) Influ B Molecular Assay (Negative) 07/31/21 Range/Units 00:00 WBC (4.8-10.8) K/uL RBC (4.7-6.1) M/uL Hgb (14.0-18.0) g/dL Hct (42-52) % MCV (80-100) fL MCH (25-34) pg MCHC (32-36) g/dL RDW Std Deviation (36.4-46.3) fL RDW Coeff of Helen (11.5-14.5) % Plt Count (130-400) K/uL MPV (7.4-10.4) fL Immature Gran % (Auto) % Neut % (Auto) % Lymph % (Auto) % Mcdonough % (Auto) % Eos % (Auto) % Baso % (Auto) % Neut # (Auto) (1.4-6.5) K/uL Lymph # (Auto) (1.2-3.4) K/uL Mcdonough # (Auto) (0.11-0.59) K/uL Eos # (Auto) (0-0.5) K/uL Baso # (Auto) (0-0.2) K/uL Immature Gran # (Auto) (0.00-0.02) K/uL PT (9.0-12.0) Seconds INR (0.9-1.1) APTT (21.0-31.0) Seconds PTT Ratio Sodium (136-145) mmol/L Potassium (3.5-5.1) mmol/L Chloride (98-107) mmol/L Carbon Dioxide (21-32) mmol/L Anion Gap (3-11) BUN (7-18) mg/dl Creatinine (0.6-1.4) mg/dl Est Cr Clr Drug Dosing ml/min Est GFR ( Amer) ml/min Est GFR (Non-Af Amer) ml/min BUN/Creatinine Ratio (10-20) Glucose (70-99) mg/dl Lactate (0.4-2.0) mmol/L Calcium (8.5-10.1) mg/dl Magnesium (1.8-2.4) mg/dl Total Bilirubin (0.2-1) mg/dl AST (15-37) U/L ALT (12-78) U/L Alkaline Phosphatase (45-117) U/L Troponin I (0-0.045) ng/ml NT-Pro-B Natriuret Pep (0-900) pg/ml Total Protein (6.4-8.2) gm/dl Albumin (3.4-5.0) gm/dl Globulin (2.5-4.0) gm/dl Albumin/Globulin Ratio (0.9-2) Urine Color Urine Appearance (Clear) Urine pH (4.5-7.5) Ur Specific [place] (1.000-1.030) Urine Protein (Negative) Urine Glucose (UA) (Negative) Urine Ketones (Negative) Urine Blood (Negative) Urine Nitrite (Negative) Urine Bilirubin (Negative) Urine Urobilinogen (Negative) Ur Leukocyte Esterase (Negative) Urine RBC (0-4) /hpf Urine WBC (0-5) /hpf Ur Epithelial Cells (0-5) /lpf Urine Bacteria (Negative) SARS-CoV-2 (PCR) (Negative) Influ A Molecular Assay Negative (Negative) Influ B Molecular Assay Negative (Negative) Imaging Data Attestation: I personally reviewed and interpreted this imaging study as follows: MDM Narrative Prior records/ancillary studies reviewed. Triage Nursing notes reviewed. Additional history obtained from nursing. The patient's history was concerning for fever. Differential diagnosis: Etiologies such as viral syndrome, otitis, pharyngitis, pneumonia, influenza, meningitis, urinary tract infection, sepsis, bacteremia, as well as others were entertained. Physical examination: As above ER treatment provided: An order was placed for continuous cardiac monitoring. The monitor shows a rate of 60-1 20 with a sinus rhythm. Patient received Tylenol just prior to arrival. He was given Motrin and Zosyn On reassessment the patient felt better. Diagnostics interpreted by me: ECG: Ordered for weakness EKG: Normal sinus, sinus arrhythmia, no acute ST-T wave changes, rate of 102. Impression sinus tachycardia interpreted by myself I think arrhythmia is unlikely. EKG shows normal sinus rhythm with no interval abnormalities such as QT prolongation or WPW. There are no findings to suggest Brugada syndrome. Cardiac monitoring in the emergency department reveals no tachycardic or bradycardic dysrhythmia. Hypertrophic cardiomyopathy was consi dered but there are no clear historical elements pointing toward this. EKG is not suggestive. The QRS voltage is not extremely large and there are no suggestive Q waves. The labs revealed urine concerning for infection sent for culture Mild anemia, negative lactic Imaging studies: CTA CHEST: Direct comparison made to prior study of March 12, 2017. Heart is normal in size. Thoracic aorta appears normal. There is no pulmonary embolism. There is a large calcific sliding hiatal hernia. There is some airspace opacity in the right lung base there is some subsegmental atelectasis at the left lung there is. There is no pneumothorax or pleural fluid collection. There is stimulating device in the left chest wall is present at the time of the previous study. Impression: Airspace opacity at the right lung base suggesting aspiration or pneumonia. No pulmonary embolism Radiologist: Jarrell Thompson MD CT ABDOMEN & PELVIS With Contrast: Direct comparison made to prior study of August 24, 2017 The liver, spleen, and pancreas and gallbladder appear normal. There is a moderately sized hiatal hernia. There is colonic diverticulosis. Small bowel and appendix appear normal. There is a large left renal cyst. Finding is stable from the prior study Ureters bladder and prostate appear normal. There are moderate atherosclerotic changes in the abdominal aorta. There is some focal airspace opacity in the right lung base which may reflect atelectasis, aspiration, or pneumonia Impression: Airspace opacity at the right lung base suggesting aspiration or pneumonia. Radiologist: Jarrell Thmopson MD Consultation: A consultation was placed with Dr. Yang. The case was discussed and diagnostics were reviewed. The patient was evaluated in the ER for further treatment. This appears to be consistent with UTI and pneumonia. Patient was started antibiotics. Medicine was consulted. He will be admitted. Patient was on outpatient antibiotics. He then became febrile and was sent in. Patient will be admitted. By the evaluation outlined above emergent etiologies such as mimi tis, pharyngitis, meningitis, sepsis, bacteremia, as well as others were deemed relatively unlikely. The pt informed about the findings as listed above. All questions were answered and pleased with the treatment. The chart was completed utilizing [id number] Speech voice recognition software. Grammatical errors, random word insertions, pronoun errors, and incomplete sentences are an occassional consequence of this system due to software limitations, ambient noise, and hardware issues. Any formal questions or concerns about the content, text, or information contained within the body of this dictation should be directly addressed to the physician call center assistant for clarification. Impression & Plan Pneumonia, Urinary tract infection, Failure of outpatient treatment Discharge Plan Visit Data Chief Complaint: Urinary Symptoms Stated Complaint: Fever, UTI ED Provider: Shante Keene ED Midlevel Provider: Lona Vaughan Discharge Problem: Pneumonia, Urinary tract infection, Failure of outpatient treatment Patient Disposition: Admitted As Inpatient Condition: Fair Discharge Instructions Interventions: ED Discharge Assessment Last Done: 07/31/21 04:31 Discharge Problem: Pneumonia Qualifiers: Pneumonia type: due to unspecified organism Laterality: unspecified laterality Lung location: unspecified part of lung Qualified Code(s): J18.9 - Pneumonia, unspecified organism
[2021-07-31 02:08] LABS: NT Pro B Type Natriuretic Pept 337 pg/ml (0-900)
[2021-07-31] MEDS ORDERED: CEFEPIME 2,000 MG/20 ML VIAL IV STA (02:30)
[2021-07-31] MEDS ORDERED: OPTIRAY 320 125ml IV ONE (02:32)
[2021-07-31] MEDS ORDERED: methylPREDNISolone 40 MG in SYRINGE 0 ML IV STA (02:53)
--- NOTE | 2021-07-31 02:54 | History & Physical Report ---
Date of Service July 31, 2021 Assessment & Plan (1) Acute hypoxemic respiratory failure: Plan: Acute on chronic Likely underlying OHS (possible YONO as per records) History of BiPAP intolerance Secondary to COPD/RLD exacerbation secondary to possible aspiration pneumonia known aspiration risk as per Severe sepsis Multifactorial Aspiration pneumonia Complicated UTI, failed outpatient treatment History diastolic heart failure/hypertension, patient on the dry side hx Parkinson's disease status post deep brain stimulator placement hypertension, stable hx PVD Chronic anemia, hemoglobin slightly lower than baseline Prediabetes, hemoglobin A1c of 6 from last year past tobacco abuse hx of MRSA Medical telemetry Supplemental O2 baseline ABG CS, Zosyn Steroid course, nebs RTC Aspiration precautions, swallow eval Pulmonary consult if without improvement DVT prophylaxis. Lovenox subcu Full code. Patient's requesting updates from providers. Irasema Dominique Lynn, contact #[phone]. Total critical time was 40 minutes. Text document was generated using [employer] voice recognition software. It may contain grammatical or spelling errors. Kindly contact undersigned for clarification of any documentation item in question. History of Present Illness Chief Complaint: Fever, low O2, cough as per family Primary Care Provider: Miguel Angel Curran, History obtained from patient, family, and records. History somewhat limited from patient secondary to hearing impairment/chronic dysarthria. Medical history significant for chronic respiratory failure, COPD/restrictive lung disease/pulmonary HTN as per records, possible YOON as per records, BiPAP intolerance as per records, Parkinson's disease status post deep brain stimulator placement, hypertension, PAF as per records, PVD as per records, BPH as per records, past tobacco abuse, hx of MRSA, chronic lymphedema, known aspiration risk, chronic anemia (baseline hemoglobin 12). Recent confinement January 2020 for respiratory failure secondary to CHF. Patient seen at PCPs office 2 days ago for urinary frequency, dysuria, and foul- smelling urine. Patient started on Bactrim course. No UA collected outpatient. At home patient noted junky cough symptoms with respiratory distress as per . Patient still with fever, requiring higher amount of O2 as per . Patient denies chest pain and abdominal pain symptoms. Patient given Zosyn upon arrival at the ER. Neb treatment given for respiratory distress. Medical Historyas above Surgical History :Craniotomy for deep brain stimulator placement, hernia repair, tonsil tag removal, shoulder surgery Family History : Parkinson's disease, diabetes, heart disease, prostate cancer Personal/Social history : Past tobacco abuse, no EtOH intake, disabled Allergies Allergy/AdvReac Type Severity Reaction Status Date / Time sulindac AdvReac Intermediate STOMACH Verified 07/31/21 03:17 IRRATION Home Medications Medication Instructions Recorded Confirmed Type albuterol sulfate 2.5 mg INHALATION Q4 PRN 01/21/20 07/31/21 History carbidopa 25 mg-levodopa 100 mg 1.5 tab PO 6XD 01/21/20 07/31/21 History tablet carbidopa ER 50 mg-levodopa 200 mg 1 tab PO HS 01/21/20 07/31/21 History tablet,extended release cyanocobalamin (vitamin B-12) 1,500 mcg PO DAILY 01/21/20 07/31/21 History 1,000 mcg tablet fluticasone propionate 50 2 spray INTRANASAL DAILY 01/21/20 07/31/21 History mcg/actuation nasal spray,suspension hydrocortisone 2.5 % topical cream 1 applic IN BID PRN 01/21/20 07/31/21 History with perineal applicator (Proctosol HC) lisinopril 10 mg tablet 10 mg PO DAILY 01/21/20 07/31/21 History omeprazole 20 mg capsule,delayed 20 mg PO QAM 01/21/20 07/31/21 History release prednisone 20 mg tablet 40 mg PO DAILY PRN 01/21/20 07/31/21 History ropinirole 4 mg tablet 4 mg PO QID 01/21/20 07/31/21 History sildenafil 100 mg tablet 100 mg PO DAILY PRN 01/21/20 07/31/21 History sodium chloride 0.65 % nasal spray 1 spray INTRANASAL DAILY PRN 01/21/20 07/31/21 History aerosol (Saline Nasal Mist) tamsulosin 0.4 mg capsule 0.4 mg PO HS 01/21/20 07/31/21 History triamcinolone acetonide 0.1 % 1 applic TOPICAL BID 01/21/20 07/31/21 History topical cream furosemide 20 mg tablet 20 mg PO BID #60 tab 01/25/20 07/31/21 Rx cholecalciferol (vitamin D3) 50 50 mcg PO DAILY 07/31/21 07/31/21 History mcg (2,000 unit) tablet (Vitamin D3) metronidazole 1 % topical gel 1 applic TOPICAL BID 07/31/21 07/31/21 History (Metrogel) omega-3 fatty acids 1,000 mg PO DAILY 07/31/21 07/31/21 History sulfamethoxazole 800 1 tab PO BID 07/31/21 07/31/21 History mg-trimethoprim 160 mg tablet Past Med/Surg History Medical History History of kidney stones HTN (hypertension) Hypercapnic respiratory failure Parkinson disease Surgical History H/O inguinal hernia repair H/O shoulder surgery S/P deep brain stimulator placement Social History Smoking Status: Unknown if ever smoked Tobacco Type: Cigarettes Hx Alcohol Use: No Hx Substance Use: No Preferred Language: Thai Communication Ability: Impaired Cia[employer] Required: No Beliefs That Will Affect Care: None marital status: Current Living Situation: Spouse Feels Safe at Home: Yes Assistive Devices: Brace/Splint/Immobilizer and Oxygen - Continuous Review of Systems Review of Systems: Could not be reliably obtained Physical Exam Physical Exam: GENERAL: Hard of hearing, dysarthric, minimal respiratory distress SKIN: Pallor , warm HEENT: Pale palpebral conjunctivae, no ptosis, dry buccal mucosa, nasal cannula in place NECK : Supple, short neck, no tenderness CHEST : Decreased breath sounds, occasional expiratory wheezes , no tenderness HEART : RRR, no obvious murmurs ABDOMEN: Some distention, nontender EXTREMITIES : Minimal LE swelling, no LE tenderness, no other gross deformities NEUROLOGIC : Coherent, hard of hearing, chronic dysarthria, gait and stance not assessed Results & Data Results & Data ([facility]) Vital Signs (Past 12 Hours) Vital Signs Temp Pulse Pulse Resp BP Pulse Ox 07/31/21 01:30 95 H 24 118/78 94 07/31/21 01:00 91 H 24 122/72 96 07/31/21 00:30 94 H 24 118/76 96 07/31/21 00:00 99 H 24 105/59 L 92 07/30/21 23:57 18 92 07/30/21 23:54 38 C H 94 H 18 124/85 92 07/30/21 23:41 76 20 94 Laboratory Results Laboratory Results WBC 6.57 K/uL (4.8-10.8) 07/30/21 23:45 RBC 4.22 M/uL (4.7-6.1) L 07/30/21 23:45 Hgb 11.7 g/dL (14.0-18.0) L 07/30/21 23:45 Hct 36.5 % (42-52) L 07/30/21 23:45 MCV 86.5 fL (80-100) 07/30/21 23:45 MCH 27.7 pg (25-34) 07/30/21 23:45 MCHC 32.1 g/dL (32-36) 07/30/21 23:45 RDW Std Deviation 47.6 fL (36.4-46.3) H 07/30/21 23:45 RDW Coeff of Helen 15.0 % (11.5-14.5) H 07/30/21 23:45 Plt Count 252 K/uL (130-400) 07/30/21 23:45 MPV 9.6 fL (7.4-10.4) 07/30/21 23:45 Immature Gran % (Auto) 0.2 % 07/30/21 23:45 Neut % (Auto) 96.5 % 07/30/21 23:45 Lymph % (Auto) 1.1 % 07/30/21 23:45 [place] % (Auto) 1.7 % 07/30/21 23:45 Eos % (Auto) 0.3 % 07/30/21 23:45 Baso % (Auto) 0.2 % 07/30/21 23:45 Neut # (Auto) 6.35 K/uL (1.4-6.5) 07/30/21 23:45 Lymph # (Auto) 0.07 K/uL (1.2-3.4) L 07/30/21 23:45 [place] # (Auto) 0.11 K/uL (0.11-0.59) 07/30/21 23:45 Eos # (Auto) 0.02 K/uL (0-0.5) 07/30/21 23:45 Baso # (Auto) 0.01 K/uL (0-0.2) 07/30/21 23:45 Immature Gran # (Auto) 0.01 K/uL (0.00-0.02) 07/30/21 23:45 PT 11.2 Seconds (9.0-12.0) 07/30/21 23:45 INR 1.1 (0.9-1.1) 07/30/21 23:45 APTT 28.5 Seconds (21.0-31.0) 07/30/21 23:45 PTT Ratio 1.1 07/30/21 23:45 Sodium 132 mmol/L (136-145) L 07/30/21 23:45 Potassium 4.1 mmol/L (3.5-5.1) 07/30/21 23:45 Chloride 93 mmol/L (98-107) L 07/30/21 23:45 Carbon Dioxide 32 mmol/L (21-32) 07/30/21 23:45 Anion Gap 7.0 (3-11) 07/30/21 23:45 BUN 14 mg/dl (7-18) 07/30/21 23:45 Creatinine 0.92 mg/dl (0.6-1.4) 07/30/21 23:45 Est Cr Clr Drug Dosing 80.5 ml/min 07/30/21 23:45 Est GFR ( Amer) 98.0 ml/min 07/30/21 23:45 Est GFR (Non-Af Amer) 84.6 ml/min 07/30/21 23:45 BUN/Creatinine Ratio 14.7 (10-20) 07/30/21 23:45 Glucose 118 mg/dl (70-99) H 07/30/21 23:45 Lactate 0.7 mmol/L (0.4-2.0) 07/30/21 23:45 Calcium 8.3 mg/dl (8.5-10.1) L 07/30/21 23:45 Magnesium 1.7 mg/dl (1.8-2.4) L 07/30/21 23:45 Total Bilirubin 0.4 mg/dl (0.2-1) 07/30/21 23:45 AST 10 U/L (15-37) L 07/30/21 23:45 ALT < 6 U/L (12-78) L 07/30/21 23:45 Alkaline Phosphatase 64 U/L (45-117) 07/30/21 23:45 Troponin I < 0.015 ng/ml (0-0.045) 07/30/21 23:45 NT-Pro-B Natriuret Pep 337 pg/ml (0-900) 07/30/21 23:45 Total Protein 6.6 gm/dl (6.4-8.2) 07/30/21 23:45 Albumin 2.9 gm/dl (3.4-5.0) L 07/30/21 23:45 Globulin 3.7 gm/dl (2.5-4.0) 07/30/21 23:45 Albumin/Globulin Ratio 0.8 (0.9-2) L 07/30/21 23:45 Urine Color Yellow 07/30/21 23:45 Urine Appearance Cloudy (Clear) A 07/30/21 23:45 Urine pH 5.5 (4.5-7.5) 07/30/21 23:45 Ur Specific [place] >= 1.030 (1.000-1.030) 07/30/21 23:45 Urine Protein 1+ (Negative) H 07/30/21 23:45 Urine Glucose (UA) Negative (Negative) 07/30/21 23:45 Urine Ketones 1+ (Negative) H 07/30/21 23:45 Urine Blood Trace-lysed (Negative) H 07/30/21 23:45 Urine Nitrite Negative (Negative) 07/30/21 23:45 Urine Bilirubin 1+ (Negative) H 07/30/21 23:45 Urine Urobilinogen Negative (Negative) 07/30/21 23:45 Ur Leukocyte Esterase 1+ (Negative) H 07/30/21 23:45 Urine RBC 0-4 /hpf (0-4) 07/30/21 23:45 Urine WBC >30 /hpf (0-5) H 07/30/21 23:45 Ur Epithelial Cells 5-10 /lpf (0-5) H 07/30/21 23:45 Urine Bacteria 1+ (Negative) H 07/30/21 23:45 SARS-CoV-2 (PCR) NEGATIVE (Negative) 07/31/21 00:00 Influ A Molecular Assay Negative (Negative) 07/31/21 00:00 Influ B Molecular Assay Negative (Negative) 07/31/21 00:[address] chest initial read: Heart is normal in size. Thoracic aorta appears normal. There is no pulmonaryembolism. There is a large calcific sliding hiatal hernia. There is some airspace opacityin the right lung base there is some subsegmental atelectasis at the left lung there is. There is no pneumothorax or pleural fluid collection. There is stimulating device in the left chest wall is present at the time of the previous study. Impression:Airspace opacityat the right lung base suggesting aspiration or pneumonia. No pulmonaryembolism CT abdomen pelvis initial read: The liver, spleen, and pancreas and gallbladder appear normal. There is a moderatelysized hiatal hernia. There is colonic diverticulosis. Small bowel and appendix appear normal. There is a large left renal cyst. Finding is stable fromthe prior studyUreters bladder and prostate appear normal. There are moderate atherosclerotic changes in the abdominal aorta. There is some focal airspace opacityin the right lung base which mayreflect atelectasis, aspiration, or pneumonia Impression:Airspace opacityat the right lung base suggesting aspiration or pneumonia EKG as per my interpretation rate 105, sinus tachycardia, LAD, LAFB, no ischemia, PACs
[2021-07-31 04:00] LABS: Base Excess ABG 4.4 mEq/L (-9-1.8); HCO3 ABG 32 mmol/L (19-24); Oxygen Saturation ABG 94.3 % (90-95); PCO2 ABG 63 mmHg (35-46); PO2 ABG 73 mmHg (80-95); pH ABG 7.33 (7.35-7.45)
[2021-07-31 04:07] LABS: Allen Test POS (Pos)
[2021-07-31] MEDS: MAGNESIUM SULFATE / D5W 1 GM/100 ML BAG IV SCH ×2 (04:24→05:31)
[2021-07-31] MEDS ORDERED: ACETAMINOPHEN 325 MG TAB PO PRN (04:31)
[2021-07-31] MEDS ORDERED: PROMETHAZINE HCL 12.5 MG in SODIUM CHLORIDE 0.9% 50 ML IV PRN (04:31)
[2021-07-31] MEDS: PIPERACILLIN/TAZOBACTAM 3.375 GM in DEXTROSE 5% 100 ML IV SCH ×3 (05:57→22:07)
[2021-07-31] MEDS ORDERED: XOPENEX/ATROVENT 1.25mg/0.5MG NEB COMBO NEB SCH (07:00)
[2021-07-31] MEDS ORDERED: LEVALBUTEROL 1.25MG/0.5ML NEB INH SCH (07:00)
[2021-07-31] MEDS ORDERED: IPRATROPIUM BROMIDE NEB SOLN 0.02% 2.5 ML VIAL INH SCH (07:00)
[2021-07-31] MEDS ORDERED: SODIUM CHLORIDE 0.9% 1000ML 1,000 ML IV ONE (07:57)
[2021-07-31] MEDS: CARBIDOPA/LEVODOPA 25/100MG TAB PO SCH ×5 (07:59→22:06)
[2021-07-31] MEDS: rOPINIRole HCL 1 MG TABLET PO SCH ×2 (08:04→12:28)
[2021-07-31 08:15] LABS: Allen Test Pos (Pos); Base Excess ABG 4.2 mEq/L (-9-1.8); HCO3 ABG 32 mmol/L (19-24); Oxygen Saturation ABG 94.2 % (90-95); PCO2 ABG 64 mmHg (35-46); PO2 ABG 73 mmHg (80-95); pH ABG 7.32 (7.35-7.45)
--- NOTE | 2021-07-31 08:26 | XRay Report ---
XR chest 1V portable HISTORY: SEPSIS COMPARISON: Chest 01/23/2020. FINDINGS: The heart remains enlarged. No pneumothorax. There is a large hiatus hernia, unchanged. Lef t-sided neurostimulator device again noted. There is a right shoulder prosthesis. There is mild centr al pulmonary vascular congestion without overt edema. Bibasilar linear densities favor subsegmental a telectasis. Otherwise, no focal lung consolidations to suggest pneumonia. IMPRESSION: 1. Low lung volumes with bibasilar linear densities suggesting subsegmental atelectasis. 2. Large hiatus hernia, unchanged. ACT 112: Negative or not required by law. Electronically signed by: Sanket Kilpatrick M.D. 07/31/2021 8:24 AM
[2021-07-31] MEDS: lisinopril 10 MG TAB PO SCH (09:09)
[2021-07-31] MEDS: PANTOprazole 40 MG TAB PO SCH (09:10)
[2021-07-31] MEDS: CYANOCOBALAMIN 500 MCG TABLET (VITAMIN B-12) PO SCH (09:10)
[2021-07-31] MEDS: ENOXAPARIN INJ 40 MG/0.4 ML SYR SQ SCH (09:20)
[2021-07-31] MEDS ORDERED: predniSONE 20 MG TAB ONE (09:27)
--- NOTE | 2021-07-31 09:29 | CT Scan Report ---
CHEST CTA for PULMONARY ARTERIES CT DOSE: HISTORY: Epigastric pain which radiates into chest. Shortness of breath. Fever. TECHNIQUE: Multiaxial CT images of the chest were performed following the intravenous administration of contrast to evaluate the pulmonary arteries. Maximal intensity projection images were also obtaine d. A dose lowering technique was utilized adhering to the principles of ALARA. COMPARISON STUDY: Chest CTA 03/12/2017. FINDINGS: There is a large hiatus hernia again noted. This has slightly increased in size. The heart remains mildly enlarged. No pleural or pericardial effusions. Severe calcified plaque within the sharron nary arteries. No evidence for an aortic dissection. Respiratory motion artifact results in nondiagno stic evaluation of a few the bilateral upper lobe and left lower lobe segmental/subsegmental pulmonar y emboli. The remaining pulmonary arteries show no filling defects to suggest a pulmonary embolus. Pl ease refer to the same day abdomen and pelvis CT for further evaluation of the abdominal structures. No significant pleural effusions. No pericardial effusion. Stable prominent bilateral hilar lymph nod es. No mediastinal lymphadenopathy. There is a left-sided neural stimulator device present. No acute fractures within the visualized osseous structures. There is a right shoulder prosthesis. No pneumoth orax. Suboptimal evaluation of the lungs due to the respiratory motion. Bibasilar linear densities fa vor subsegmental atelectasis. There are also a few patchy densities within the base of the right lowe r lobe. This could represent atelectasis or pneumonia. IMPRESSION: 1. No evidence for pulmonary embolus with limitations as described above. 2. Large hiatus hernia. This has slightly increased in size. 3. Patchy densities within the base of the right lower lobe. This could represent atelectasis or pneu monia. ACT 112: Negative or not required by law. Electronically signed by: Sanket Kilpatrick M.D. 07/31/2021 9:28 AM
[2021-07-31] MEDS: FLUTICASONE PROPIONATE NA SPR 16 GM BTL SCH (09:30)
[2021-07-31] MEDS ORDERED: IPRATROPIUM BROMIDE NEB SOLN 0.02% 2.5 ML VIAL INH PRN (09:33)
[2021-07-31] MEDS ORDERED: LEVALBUTEROL 1.25MG/0.5ML NEB INH PRN (09:33)
--- NOTE | 2021-07-31 09:34 | CT Scan Report ---
ABDOMEN AND PELVIS CT WITH IV CONTRAST CT DOSE: 1776.23 mGy.cm HISTORY: Fever. Urinary tract infection. TECHNIQUE: Multiaxial CT images of the abdomen and pelvis were performed following the use of intrave nous contrast. A dose lowering technique was utilized adhering to the principles of ALARA. COMPARISON STUDY: Abdomen and pelvis CT 08/24/2017. FINDINGS: Please refer to same day chest CT for further evaluation of the lung bases. There is a larg e hiatus hernia. No acute fractures identified. The liver, gallbladder, pancreas, spleen, and adrenal glands are unremarkable. There is a small diverticulum at the second portion of the duodenum. Left-s ided nephrolithiasis. A few bilateral renal hypodense lesions are again noted. These favor cysts. Dom inant left renal cyst measures 11.5 cm. This has slightly increased in size. The main portal vein is patent. Normal caliber abdominal aorta. No retroperitoneal lymphadenopathy. Mild bladder wall thicken ing with adjacent fat stranding. This likely represents a cystitis. There are few small bladder diver ticula. The prostate gland is normal in size. Colonic diverticulosis. No evidence for acute diverticu litis. No bowel wall thickening or obstruction. Normal appendix. IMPRESSION: 1. Mild bladder wall thickening with adjacent fat stranding. This likely represents a cystitis. 2. Left-sided nephrolithiasis. No ureteral stones. No hydronephrosis. 3. Colonic diverticulosis. No evidence for acute diverticulitis. 4. No bowel wall thickening or obstruction. 5. Large hiatus hernia. This has slightly increased in size. 6. Please refer to the same day chest CT for further evaluation of the lung bases. ACT 112: Negative or not required by law. Electronically signed by: Sanket Kilpatrick M.D. 07/31/2021 9:33 AM
[2021-07-31] MEDS: rOPINIRole HCL 2 MG TABLET PO SCH ×2 (17:05→22:07)
[2021-07-31] MEDS ORDERED: Nursing to Pharmacy Communication SCH (18:15)
--- NOTE | 2021-07-31 18:24 | Electrocardiogram Report ---
Test Reason : Blood Pressure : / mmHG Vent. Rate : 102 BPM Atrial Rate : 102 BPM P-R Int : 130 ms QRS Dur : 082 ms QT Int : 340 ms P-R-T Axes : 060 -09 031 degrees QTc Int : 443 ms Sinus tachycardia with Premature atrial complexes Otherwise normal ECG When compared with ECG of 21-JAN-2020 04:44, No significant change was found Confirmed by Kamron Bustamante ([id number]) on 07/31/2021 6:23:44 PM Referred By: REFERRED SELF Confirmed By:Kamron Bustamante
[2021-07-31] MEDS: CARBIDOPA/LEVODOPA 50/200MG EXT REL TAB PO SCH (22:06)
[2021-07-31] MEDS: TAMSULOSIN HCL 0.4 MG CAP PO SCH (22:07)
--- NOTE | 2021-07-31 23:28 | Communication Note ---
Date of Service: July 31, 2021 Pt was seen and examined for follow up of SOB. Lying in bed with no acute distress. Pt said that he feels fine and he wants to go home. He kept saying t hat he is ready to go home today. CT abd/pelvis showed mild bladder wall thickening with adjacent fat stranding. This likely represents a cystitis. Colonic diverticulosis. No evidence for acute diverticulitis. Large hiatus hernia. This has slightly increased in size. CTA chest showed patchy densities within the base of the right lower lobe. Speech was consulted and patient is very high risk for aspiration, but and patient chose permissive aspiration., Easy to chew and moist diet. Continue IV Zosyn for now. Will follow blood cx and aspiration precaution. MD Piotr
[2021-08-01] MEDS: CARBIDOPA/LEVODOPA 25/100MG TAB PO SCH ×7 (00:28→22:24)
[2021-08-01] MEDS: PIPERACILLIN/TAZOBACTAM 3.375 GM in DEXTROSE 5% 100 ML IV SCH ×3 (06:14→21:31)
[2021-08-01 07:55] LABS: Eosinophils # (auto) 0.02 K/uL (0-0.5); Eosinophils % (auto) 0.4 %; Hematocrit (blood only) 36.7 % (42-52); Hemoglobin 11.4 g/dL (14.0-18.0); Lymphocytes % (auto) 6.7 %; Mean Corpuscular Hemoglobin 27.5 pg (25-34); Mean Corpuscular Hgb Conc 31.1 g/dL (32-36); Mean Corpuscular Volume 88.4 fL (80-100); Mean Platelet Volume 9.5 fL (7.4-10.4); Monocytes # (auto) 0.26 K/uL (0.11-0.59); Monocytes % (auto) 5.8 %; Neutrophils # (auto) 3.92 K/uL (1.4-6.5); Neutrophils % (auto) 87.1 %; Platelet Count 232 K/uL (130-400); RDW Coefficient of Variation 15.1 % (11.5-14.5); RDW Standard Deviation 49.5 fL (36.4-46.3); Red Blood Count 4.15 M/uL (4.7-6.1)
[2021-08-01] MEDS: predniSONE 20 MG TAB PO SCH (08:01)
[2021-08-01] MEDS: rOPINIRole HCL 2 MG TABLET PO SCH ×4 (08:01→20:13)
[2021-08-01] MEDS: lisinopril 10 MG TAB PO SCH (08:01)
[2021-08-01] MEDS: PANTOprazole 40 MG TAB PO SCH (08:02)
[2021-08-01] MEDS: ENOXAPARIN INJ 40 MG/0.4 ML SYR SQ SCH (08:02)
[2021-08-01] MEDS: CYANOCOBALAMIN 500 MCG TABLET (VITAMIN B-12) PO SCH (08:02)
[2021-08-01 08:20] LABS: BUN Creatinine Ratio 14.2 (10-20); Calcium 8.5 mg/dl (8.5-10.1); Creatinine Clr Calc Pharmacy 89.1 ml/min; Est GFR (African American) 103.5 ml/min; Est GFR (Non-African American) 89.3 ml/min; Magnesium 2.4 mg/dl (1.8-2.4); Potassium 4.4 mmol/L (3.5-5.1)
[2021-08-01] MEDS ORDERED: SODIUM CHLORIDE 0.65% NA SOLN 45 ML (OCEAN) PRN (08:20)
[2021-08-01] MEDS: FLUTICASONE PROPIONATE NA SPR 16 GM BTL SCH (09:35)
--- NOTE | 2021-08-01 19:39 | Hospitalist Progress Note ---
Date of Service August 01, 2021 Assessment & Plan (1) Acute hypoxemic respiratory failure: Plan: Possible due to aspiration pneumonia CTA worsening respiratory distress showed Large hiatus hernia. Patchy densities within the base of the right lower lobe. Continue IV antibiotic with Zosyn and steroid Speech on board Very high risk of aspiration Case discussed with patient and that showed permissive aspiration Patient understand the risk such as aspiration, worsening respiratory distress, and Speech recommend easy to chew with moist diet Continue oxygen supplement Patient is very anxious to go home today but agree to stay to stay for tonight YOON History of BiPAP intolerance History diastolic heart failure Continue Lasix Hypertension BP stable Continue outpatient BP meds Hx Parkinson's disease status post deep brain stimulator placement Stable hypertension, stable hx PVD DVT prophylaxis. Lovenox subcu Full code. Patient's requesting updates from providers. Ms. Dominique Lynn, contact #[phone]. Admission and Anticipated Discharge Date Admission Date: July 31, 2021 Subjective Pt was seen and examined for follow up of aspiration and SOB Sitting on the chair with no acute distress and continue to require 2 L NC Pt is very upset because I keep him in the hospital at bedside, she had to calm him down that he can stay an extra day He is willing to stay for tonight but he wants the to come get him tomorrow at 5 AM,but said that was too early, but he is ok for to come at 9AM Denies any chest pain, palpitation, dizziness and SOB Review of Systems Review of Systems: All systems reviewed & are unremarkable except as noted in Subjective Physical Exam Physical Exam: General- No acute distress, sitting in chair leaned side way Head- atraumatic Eyes- PERRL, EOMI, ENT- oropharynx clear, decrease hearing function Neck- supple, no JVD Lungs- Coarse BS Heart- regular rhythm; no murmur Abdomen- normal bowel sounds, soft, nontender Extremities- no calf tenderness Neuro- alert, oriented x 3; PERRL, EOMI; no facial palsy; +speech dysarthria Skin- warm & dry Results & Data Results & [facility] ([facility]) Vital Signs (Past 12 Hours) Vital Signs Temp Pulse Pulse Resp BP Pulse Ox Pulse Ox 08/01/21 18:42 36.8 C 92 H 18 124/73 90 08/01/21 16:40 93 08/01/21 16:00 96 H 11/20/21 15:25 93 08/01/21 15:01 37.1 C 97 H 20 114/63 94 08/01/21 11:04 36.8 C 76 18 123/76 94 08/01/21 07:46 36.3 C L 72 18 128/78 98
[2021-08-01] MEDS: TAMSULOSIN HCL 0.4 MG CAP PO SCH (20:13)
[2021-08-01] MEDS: CARBIDOPA/LEVODOPA 50/200MG EXT REL TAB PO SCH (20:13)
[2021-08-02 02:09] LABS: BUN Creatinine Ratio 17.6 (10-20); Calcium 8.9 mg/dl (8.5-10.1); Creatinine Clr Calc Pharmacy 91.3 ml/min; Est GFR (African American) 104.6 ml/min; Est GFR (Non-African American) 90.2 ml/min; Magnesium 2.3 mg/dl (1.8-2.4); Potassium 4.5 mmol/L (3.5-5.1)
[2021-08-02] MEDS: CARBIDOPA/LEVODOPA 25/100MG TAB PO SCH (06:03)
[2021-08-02] MEDS: PIPERACILLIN/TAZOBACTAM 3.375 GM in DEXTROSE 5% 100 ML IV SCH (06:03)
[2021-08-02] MEDS: FLUTICASONE PROPIONATE NA SPR 16 GM BTL SCH (08:46)
[2021-08-02] MEDS: lisinopril 10 MG TAB PO SCH (08:48)
[2021-08-02] MEDS: rOPINIRole HCL 2 MG TABLET PO SCH (08:48)
[2021-08-02] MEDS: predniSONE 20 MG TAB PO SCH (08:48)
[2021-08-02] MEDS: ENOXAPARIN INJ 40 MG/0.4 ML SYR SQ SCH (08:50)
[2021-08-02] MEDS: PANTOprazole 40 MG TAB PO SCH (08:51)
--- NOTE | 2021-08-13 01:42 | Discharge Summary ---
Date of Service August 02, 2021 Admission HPI Per Admitting Provider History obtained from patient, family, and records. History somewhat limited from patient secondary to hearing impairment/chronic dysarthria. Medical history significant for chronic respiratory failure, COPD/restrictive lung disease/pulmonary HTN as per records, possible YOON as per records, BiPAP intolerance as per records, Parkinson's disease status post deep brain stimulator placement, hypertension, PAF as per records, PVD as per records, BPH as per records, past tobacco abuse, hx of MRSA, chronic lymphedema, known aspiration risk, chronic anemia (baseline hemoglobin 12). Recent confinement January 2020 for respiratory failure secondary to CHF. Patient seen at PCPs office 2 days ago for urinary frequency, dysuria, and foul- smelling urine. Patient started on Bactrim course. No UA collected outpatient. At home patient noted junky cough symptoms with respiratory distress as per . Patient still with fever, requiring higher amount of O2 as per . Patient denies chest pain and abdominal pain symptoms. Patient given Zosyn upon arrival at the ER. Neb treatment given for respiratory distress. Medical Historyas above Surgical History :Craniotomy for deep brain stimulator placement, hernia repair, tonsil tag removal, shoulder surgery Family History : Parkinson's disease, diabetes, heart disease, prostate cancer Personal/Social history : Past tobacco abuse, no EtOH intake, disabled Admission Exam Per Admitting Provider GENERAL: Hard of hearing, dysarthric, minimal respiratory distress SKIN: Pallor , warm HEENT: Pale palpebral conjunctivae, no ptosis, dry buccal mucosa, nasal cannula in place NECK : Supple, short neck, no tenderness CHEST : Decreased breath sounds, occasional expiratory wheezes , no tenderness HEART : RRR, no obvious murmurs ABDOMEN: Some distention, nontender EXTREMITIES : Minimal LE swelling, no LE tenderness, no other gross deformities NEUROLOGIC : Coherent, hard of hearing, chronic dysarthria, gait and stance not assessed Principal Diagnosis Acute hypoxemic respiratory failure Aspiration pneumonia Discharge Exam General- No acute distress, sitting in chair leaned side way Head- atraumatic Eyes- PERRL, EOMI, ENT- oropharynx clear, decrease hearing function Neck- supple, no JVD Lungs- Coarse BS Heart- regular rhythm; no murmur Abdomen- normal bowel sounds, soft, nontender Extremities- no calf tenderness Neuro- alert, oriented x 3; PERRL, EOMI; no facial palsy; +speech dysarthria Skin- warm & dry Discharge Data Allergies Allergy/AdvReac Type Severity Reaction Status Date / Time sulindac AdvReac Intermediate STOMACH Verified 07/31/21 03:17 IRRATION Ordered Studies 07/31/21 01:02 CT angio chest PE protocol Urgent 07/31/21 01:48 CT abd pelvis IV con only Urgent ABDOMEN AND PELVIS CT WITH IV CONTRAST CT DOSE: 1776.23 mGy.cm HISTORY: Fever. Urinary tract infection. TECHNIQUE: Multiaxial CT images of the abdomen and pelvis were performed following the use of intravenous contrast. A dose lowering technique was utilized adhering to the principles of ALARA. COMPARISON STUDY: Abdomen and pelvis CT 08/24/2017. FINDINGS: Please refer to same day chest CT for further evaluation of the lung bases. There is a large hiatus hernia. No acute fractures identified. The liver, gallbladder, pancreas, spleen, and adrenal glands are unremarkable. There is a small diverticulum at the second portion of the duodenum. Left-sided nephrolithiasis. A few bilateral renal hypodense lesions are again noted. These favor cysts. Dominant left renal cyst measures 11.5 cm. This has slightly increased in size. The main portal vein is patent. Normal caliber abdominal aorta. No retroperitoneal lymphadenopathy. Mild bladder wall thickening with adjacent fat stranding. This likely represents a cystitis. There are few small bladder diverticula. The prostate gland is normal in size. Colonic diverticulosis. No evidence for acute diverticulitis. No bowel wall thickening or obstruction. Normal appendix. IMPRESSION: 1. Mild bladder wall thickening with adjacent fat stranding. This likely represents a cystitis. 2. Left-sided nephrolithiasis. No ureteral stones. No hydronephrosis. 3. Colonic diverticulosis. No evidence for acute diverticulitis. 4. No bowel wall thickening or obstruction. 5. Large hiatus hernia. This has slightly increased in size. 6. Please refer to the same day chest CT for further evaluation of the lung bases. ACT 112: Negative or not required by law. Electronically signed by: Sanket Kilpatrick M.D. 07/31/2021 9:33 AM Dictated:07/31/21927 Transcribed: 07/31/21927 CHEST CTA for PULMONARY ARTERIES CT DOSE: HISTORY: Epigastric pain which radiates into chest. Shortness of breath. Fever. TECHNIQUE: Multiaxial CT images of the chest were performed following the intravenous administration of contrast to evaluate the pulmonary arteries. Maximal intensity projection images were also obtained. A dose lowering technique was utilized adhering to the principles of ALARA. COMPARISON STUDY: Chest CTA 03/12/2017. FINDINGS: There is a large hiatus hernia again noted. This has slightly increased in size. The heart remains mildly enlarged. No pleural or pericardial effusions. Severe calcified plaque within the coronary arteries. No evidence for an aortic dissection. Respiratory motion artifact results in nondiagnostic evalu ation of a few the bilateral upper lobe and left lower lobe segmental/subsegmental pulmonary emboli. The remaining pulmonary arteries show no filling defects to suggest a pulmonary embolus. Please refer to the same day abdomen and pelvis CT for further evaluation of the abdominal structures. No significant pleural effusions. No pericardial effusion. Stable prominent bilateral hilar lymph nodes. No mediastinal lymphadenopathy. There is a left- sided neural stimulator device present. No acute fractures within the visualized osseous structures. There is a right shoulder prosthesis. No pneumothorax. Suboptimal evaluation of the lungs due to the respiratory motion. Bibasilar linear densities favor subsegmental atelectasis. There are also a few patchy densities within the base of the right lower lobe. This could represent atelectasis or pneumonia. IMPRESSION: 1. No evidence for pulmonary embolus with limitations as described above. 2. Large hiatus hernia. This has slightly increased in size. 3. Patchy densities within the base of the right lower lobe. This could represent atelectasis or pneumonia. ACT 112: Negative or not required by law. Electronically signed by: Sanket Kilpatrick M.D. 07/31/2021 9:28 AM Dictated:07/31/21920 Transcribed: 07/31/21920 XR chest 1V portable HISTORY: SEPSIS COMPARISON: Chest 01/23/2020. FINDINGS: The heart remains enlarged. No pneumothorax. There is a large hiatus hernia, unchanged. Left-sided neurostimulator device again noted. There is a right shoulder prosthesis. There is mild central pulmonary vascular congestion without overt edema. Bibasilar linear densities favor subsegmental atelectasis. Otherwise, no focal lung consolidations to suggest pneumonia. IMPRESSION: 1. Low lung volumes with bibasilar linear densities suggesting subsegmental atelectasis. 2. Large hiatus hernia, unchanged. ACT 112: Negative or not required by law. Electronically signed by: Sanket Kilpatrick M.D. 07/31/2021 8:24 AM Dictated:07/31/21822 Transcribed: 07/31/21822 Hospital Course (1) Acute hypoxemic respiratory failure: Possible due to aspiration pneumonia CTA worsening respiratory distress showed Large hiatus hernia. Patchy densities within the base of the right lower lobe. Continue IV antibiotic with Zosyn and steroid Speech on board Very high risk of aspiration Case discussed with patient and that showed permissive aspiration Patient understand the risk such as aspiration, worsening respiratory distress, and Speech recommend easy to chew with moist diet Continue oxygen supplement Patient is very anxious to go home today but agree to stay to stay for tonight YOON History of BiPAP intolerance History diastolic heart failure Continue Lasix Hypertension BP stable Continue outpatient BP meds Hx Parkinson's disease status post deep brain stimulator placement Stable hypertension, stable hx PVD DVT prophylaxis. Lovenox subcu Full code. Patient's requesting updates from providers. Ms. Dominique Lynn, contact #[phone]. Total Time Total Time Spent Total Time Spent (In Minutes): 35 minutes Discharge Plan Discharge Items Patient Disposition: Home - Home Health Services Reason For Visit: RESP FAILURE Discharge Diagnosis: Acute hypoxemic respiratory failure Aspiration pneumonia Condition on Discharge: Fair Activity: Resume your previous activity Non-emergency contact: Primary Care Provider Call non-emergency contact if: you have any medication questions, your symptoms worsen and your temperature is above 101 Follow-up/Referrals: Miguel Angel Curran, [Primary Care Provider] - Diet: Heart Healthy Diet Texture: Easy to Chew Addtl Attending Provider Instructions: Follow up with your primary care provider Dr. Curran within 1 week Continue physical and occupational therapy Your are not fully back to your baseline to be discharged yet, but since you don't want to be in the hospital I want you to continue to use your oxygen at home with 2 liter Nasal canula. Complete the course of the antibiotic with Augmentin and prednisone. You are very high risk for aspiration. You and your are OK with permissive aspiration Follow and easy to chew and moist diet Continue aspiration precaution ( small sips, single and small bites) Continue incentive spirometry and flutter valve Fall precaution Continue oxygen supplement Please seek medical attention if your breathing worsening Pending Studies at Discharge: No Stand-Alone Forms: My [facility], Smoking Cessation Medications and DC Order Prescriptions: New amoxicillin-pot clavulanate [Augmentin] 875-125 mg tablet 1 tab PO BID Qty: 10 RF: 0 guaifenesin 200 mg tablet 200 mg PO TID PRN (Reason: congestion) Qty: 15 RF: 0 Continued carbidopa-levodopa 50-200 mg tablet extended release 1 tab PO HS RF: 0 tamsulosin 0.4 mg capsule 0.4 mg PO HS RF: 0 lisinopril 10 mg tablet 10 mg PO DAILY RF: 0 omeprazole 20 mg capsule,delayed release(DR/EC) 20 mg PO QAM RF: 0 carbidopa-levodopa 25-100 mg tablet 1.5 tab PO 6XD RF: 0 ropinirole 4 mg tablet 4 mg PO QID RF: 0 albuterol sulfate 2.5 mg /3 mL (0.083 %) Solution For Nebulization 2.5 mg INHALATION Q4 PRN (Reason: Shortness Of Breath Or Wheezing) RF: 0 prednisone 20 mg tablet 40 mg PO DAILY PRN (Reason: rescue kit) RF: 0 cyanocobalamin (vitamin B-12) 1,000 mcg Tablet 1,500 mcg PO DAILY RF: 0 sildenafil 100 mg Tablet 100 mg PO DAILY PRN (Reason: Erectile Dysfunction) RF: 0 triamcinolone acetonide 0.1 % cream 1 applic TOPICAL BID RF: 0 hydrocortisone [Proctosol HC] 2.5 % Cream With Perineal Applicator 1 applic VA BID PRN (Reason: Hemorrhoids) RF: 0 fluticasone propionate 50 mcg/actuation spray,suspension 2 spray INTRANASAL DAILY RF: 0 sodium chloride [Saline Nasal Mist] 0.65 % Aerosol,[place] 1 spray INTRANASAL DAILY PRN (Reason: Nasal Congestion) RF: 0 furosemide 20 mg tablet 20 mg PO BID Qty: 60 RF: 3 omega-3 fatty acids Capsule 1,000 mg PO DAILY RF: 0 metronidazole [Metrogel] 1 % Gel 1 applic TOPICAL BID RF: 0 cholecalciferol (vitamin D3) [Vitamin D3] 50 mcg (2,000 unit) Tablet 50 mcg PO DAILY RF: 0 Discontinued sulfamethoxazole-trimethoprim 800-160 mg tablet 1 tab PO BID RF: 0 Discharge Orders: Discharge Order (Routine); Ordered 08/02/21 Ordered By: Anusha Saldaña Admission Data Admit Date/Time: 07/31/21 03:01 Attending Provider: Anusha Saldaña Admit Provider: Raf Yang Primary Care Provider: Miguel Angel Curran Other Interventions: Discharge Summary Assessment (RN) Last Done: 08/02/21 10:39
--- NOTE | 2021-08-13 05:38 | Coding Query ---
SEPSIS To promote full compliance with coding requirements relating to patient care, physician participation is requested in all cases of cooper apprentice uncertainty. Please assist us with the question(s) below: In responding to this query, please exercise your independent professional judgement. The fact that a question is asked does not imply that any particular answer is desired or expected. We appreciate your clarification on this issue. Throughout the medical record, you have clearly documented a localized infection and your patient has clinical evidence of a generalized sepsis or severe sepsis. The term urosepsis is a nonspecific entity and is coded as an UTI. If the patient has sepsis, severe sepsis, from an urinary source or some other source, please clarify in your response below. The medical record reflects the following clinical findings: Patient admitted with fever, pneumonia, UTI , failed outpatient treatment. Acute/Chronic Respiratory failure and COPD exacerbation. H/P and 08/01 progress note mention Severe Sepsis, multifactorial- Aspiration, UTI. Please check below if Sepsis was treated during this brief IP stay. Thanks for your help. Gopi Mei [facility] ____ ( )Bacteremia (Nonspecific laboratory finding of bacteria in the blood) Specify Organism ( ) Present on Admission ( ) Not present on admission () Unable to clinically determine ( ) Septicemia (Systemic disease associated with the presence of pathogenic microorganisms in the blood): Specify Organism ( ) Present on Admission ( ) Not present on admission ( ) Unable to clinically determine ( ) Sepsis Specify Organism Specify Associated Condition/Diagnosis ( ) Present on Admission ( ) Not present on admission ( ) Unable to clinically determine ( ) Severe Sepsis (Sepsis associated with acute organ dysfunction) Specify Organism Specify Associated Condition/Diagnosis ( ) Present on Admission ( ) Not present on admission ( ) Unable to clinically determine ( ) Septic Shock (Severe sepsis with acute circulatory failure, unexplained by other causes) ( ) Present on Admission ( ) Not present on admission ( ) Unable to clinically determine (x ) Other, patient has: Sepsis ruled out MTDD
== END 2021-08-02 11:19 | disposition home health service (06) | DRG 177 ==
LOC: ED 23:17 → EDINP 07-31 03:01 → 2W 08-01 04:31

== ENCOUNTER 2022-08-27 18:29 | Inpatient (IN) ==
--- NOTE | 2022-08-27 19:41 | XRay Report ---
LEFT SHOULDER 3 VIEWS; LEFT HUMERUS 2 VIEWS CLINICAL HISTORY: Left shoulder and arm pain. FINDINGS: 3 views of the left shoulder with AP and lateral views of the left humerus are obtained. No prior studies are available for comparison at the time of dictation. The examinations are degraded b y inability to properly position the patient. The skeletal structures are osteopenic. There is an age -indeterminate Hill-Sachs lesion in the humeral head. Displaced fragments are not corticated and this may be acute. There is likely a joint effusion of the left shoulder with additional calcifications w ithin the joint space. No additional findings are seen to suggest acute fracture at the shoulder join t. The distal humerus is intact. There is mild subluxation of the humeral head at the shoulder joint without catarina dislocation. The acromioclavicular joint appears maintained. The left elbow joint is gr ossly maintained. Soft tissue edema is present in the left upper extremity. The visualized left lung parenchyma is grossly clear. An electronic device projects over the upper chest. IMPRESSION: 1. Age indeterminant Hill-Sachs fracture of the humeral head which may be acute. Clinical correlation will be required. 2. No additional finding is seen to suggest acute fracture at the shoulder joint. The distal humerus is intact. 3. There is mild subluxation of the humeral head at the glenohumeral articulation without catarina dislo cation. 4. Suspect a joint effusion of the left shoulder with additional calcified joint bodies. Electronically signed by: Jignesh Hernández M.D. 08/27/2022 7:39 PM
--- NOTE | 2022-08-27 20:32 | History & Physical Report ---
Date of Service August 27, 2022 Assessment & Plan (1) Closed Hill-Sachs fracture of left humerus: (2) Parkinson's disease: (3) Chronic diastolic heart failure: (4) HTN (hypertension): (5) COPD (chronic obstructive pulmonary disease): (6) YOON (obstructive sleep apnea): (7) Chronic hypercapnic respiratory failure: (8) Iron deficiency anemia: (9) BPH (benign prostatic hypertrophy): Plan: Assessment and plan per Dr Yang. History of Present Illness Chief Complaint: Left shoulder pain Primary Care Provider: Miguel Angel Curran DO Patient is 72-year-old male with PMH Parkinson's s/p deep brain stimulator, HTN, dyslipidemia, chronic diastolic heart failure, chronic hypoxic hypercapnic respiratory failure, COPD, YOON on BiPAP, pulmonary hypertension, iron deficiency anemia, GERD, BPH presents to ER with complaint of left shoulder pain. History obtained from patient and patient's . Reports on 08/16/22 patient was getting into car and pulled himself up with the grab bar in the car and he states he felt burning type sensation. states called Kat at home who reached out to ortho and thought it may be rotator cuff tear and was treated with Medrol dosepak. States had ecchymosis left shoulder extending to left chest wall. The ecchymosis has since decreased. Has swelling of entire LUE. Patient states no significant pain with rest. States limited ROM of left shoulder prior to injury but now is unable to use left shoulder. He states has limited movement left elbow and can move wrist and fingers as per baseline. Denies numbness/tingling. Denies any other complaints. Is right hand dominant. Denies fever/chills, diaphoresis, N/V/D/C, ROSEN, dizziness, syncope, vision changes, neck pain, CP, SOB, orthopnea, palpitations, cough, sore throat, otalgia, rhinorrhea, abdominal pain, increased lower extremity edema, rashes, urinary symptoms. Allergies Allergy/AdvReac Type Severity Reaction Status Date / Time sulindac AdvReac Intermediate STOMACH Verified 07/31/21 03:17 IRRATION Home Medications Medication Instructions Recorded Confirmed Type albuterol sulfate 2.5 mg/3 mL 2.5 mg inhalation Q4 PRN Shortness 01/21/20 08/27/22 History (0.083 %) solution for nebulization Of Breath Or Wheezing carbidopa 25 mg-levodopa 100 mg 1.5 tab PO 6XD 01/21/20 08/27/22 History tablet carbidopa ER 50 mg-levodopa 200 mg 1 tab PO HS 01/21/20 08/27/22 History tablet,extended release cyanocobalamin (vitamin B-12) 1,000 mcg PO DAILY 01/21/20 08/27/22 History 1,000 mcg tablet fluticasone propionate 50 2 spray intranasal DAILY 01/21/20 08/27/22 History mcg/actuation nasal spray,suspension omeprazole 20 mg capsule,delayed 20 mg PO QAM 01/21/20 08/27/22 History release tamsulosin 0.4 mg capsule 0.4 mg PO HS 01/21/20 08/27/22 History cholecalciferol (vitamin D3) 50 50 mcg PO DAILY 07/31/21 08/27/22 History mcg (2,000 unit) tablet (Vitamin D3) omega-3 fatty acids 1,000 mg PO DAILY 07/31/21 08/27/22 History furosemide 40 mg tablet 40 mg PO DAILY 08/27/22 08/27/22 History lisinopril 5 mg tablet 5 mg PO DAILY 08/27/22 08/27/22 History ropinirole 12 mg tablet,extended 12 mg PO HS 08/27/22 08/27/22 History release 24 hr ropinirole 3 mg tablet 3 mg PO QID 08/27/22 08/27/22 History Past Med/Surg History Medical History (Updated 08/27/22 @ 21:44 by Roxann Khan PA-C) BPH (benign prostatic hypertrophy) Chronic diastolic heart failure Chronic hypercapnic respiratory failure COPD (chronic obstructive pulmonary disease) Dyslipidemia GERD (gastroesophageal reflux disease) History of kidney stones HTN (hypertension) Hypercapnic respiratory failure Iron deficiency anemia YOON (obstructive sleep apnea) bipap with 2.5L oxygen Parkinson disease Surgical History H/O inguinal hernia repair H/O shoulder surgery reverse total shoulder arthroplasty- right. 01/2017. [place] [facility] [place] shoulder [place] -right. 11/2021. 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 Required: No Beliefs That Will Affect Care: None marital status: Current Living Situation: Spouse Current Living Situation Comment: Home with spouse who is unable to care for him - Was to recieve home health Other Information That Helps Us Care for You: No Feels Safe at Home: Yes Safety Concerns: Feels Safe At This Time Assistive Devices: BiPap Review of Systems Review of Systems: All systems reviewed & are unremarkable except as noted in HPI & below Physical Exam Physical Exam: General: no distress, WDWN Head: normocephalic, atraumatic Eyes: conjunctiva non-injected, anicteric ENT: hard of hearing, normal inspection external ears, nose, mucous membranes moist Neck: supple, trachea midline Lungs: clear, no respiratory distress, no wheezing/rhonchi/rales CV: RRR, no murmur, 1-2+ pretibial edema Abd: normal BS, soft, non-tender Ext: no cyanosis, no calf tenderness; LUE: +edema entire LUE, +apparent resolving ecchymosis axilla and left breast, +tenderness to palpation anterior left shoulder, no active ROM shoulder, limited to pronation and supination hand, paper hanger strength intact, distal pulses intact, sensation to light touch intact Neuro: A&O x 3, +speech dysarthria, flat affect Skin: warm, dry Results & Data Results & Data ([facility]) Vital Signs (Past 12 Hours) Vital Signs Temp Pulse Resp BP Pulse Ox O2 Del Method 08/27/22 18:44 37.1 C 76 18 138/86 96 Room Air Laboratory Results Short CBC 08/27/22 Range/Units 20:38 WBC 9.54 (4.8-10.8) K/ul Hgb 11.8 L (14.0-18.0) g/dl Hct 36.6 L (40.1-51.0) % Plt Count 438 H (130-400) K/uL BMP 08/27/22 20:38 Sodium 135 L Potassium 3.8 Chloride 96 L Carbon Dioxide 34 H BUN 19 Creatinine 0.59 L Glucose 99 Calcium 8.2 L Diagnostic Findings Humerus X-Ray 08/27/22 18:54 LEFT SHOULDER 3 VIEWS; LEFT HUMERUS 2 VIEWS CLINICAL HISTORY: Left shoulder and arm pain. FINDINGS: 3 views of the left shoulder with AP and lateral views of the left humerus are obtained. No prior studies are available for comparison at the time of dictation. The examinations are degraded by inability to properly position the patient. The skeletal structures are osteopenic. There is an age- indeterminate Hill-Sachs lesion in the humeral head. Displaced fragments are not corticated and this may be acute. There is likely a joint effusion of the left shoulder with additional calcifications within the joint space. No additional findings are seen to suggest acute fracture at the shoulder joint. The distal humerus is intact. There is mild subluxation of the humeral head at the shoulder joint without catarina dislocation. The acromioclavicular joint appears maintained. The left elbow joint is grossly maintained. Soft tissue edema is present in the left upper extremity. The visualized left lung parenchyma is grossly clear. An electronic device projects over the upper chest. IMPRESSION: 1. Age indeterminant Hill-Sachs fracture of the humeral head which may be acute. Clinical correlation will be required. 2. No additional finding is seen to suggest acute fracture at the shoulder joint. The distal humerus is intact. 3. There is mild subluxation of the humeral head at the glenohumeral articulation without catarina dislocation. 4. Suspect a joint effusion of the left shoulder with additional calcified joint bodies. Electronically signed by: Jignesh Hernández M.D. 08/27/2022 7:39 PM Shoulder X-Ray 08/27/22 18:54 LEFT SHOULDER 3 VIEWS; LEFT HUMERUS 2 VIEWS CLINICAL HISTORY: Left shoulder and arm pain. FINDINGS: 3 views of the left shoulder with AP and lateral views of the left humerus are obtained. No prior studies are available for comparison at the time of dictation. The examinations are degraded by inability to properly position the patient. The skeletal structures are osteopenic. There is an age- indeterminate Hill-Sachs lesion in the humeral head. Displaced fragments are not corticated and this may be acute. There is likely a joint effusion of the left shoulder with additional calcifications within the joint space. No additional findings are seen to suggest acute fracture at the shoulder joint. The distal humerus is intact. There is mild subluxation of the humeral head at the shoulder joint without catarina dislocation. The acromioclavicular joint appears maintained. The left elbow joint is grossly maintained. Soft tissue edema is present in the left upper extremity. The visualized left lung parenchyma is grossly clear. An electronic device projects over the upper chest. IMPRESSION: 1. Age indeterminant Hill-Sachs fracture of the humeral head which may be acute. Clinical correlation will be required. 2. No additional finding is seen to suggest acute fracture at the shoulder join t. The distal humerus is intact. 3. There is mild subluxation of the humeral head at the glenohumeral articulation without catarina dislocation. 4. Suspect a joint effusion of the left shoulder with additional calcified joint bodies. Electronically signed by: Jignesh Hrenández M.D. 08/27/2022 7:39 PM Supervising Physician Co-Signing Physician Notes IM ATTENDING : Patient seen and examined. History obtained from patient, , and records. Preceding documentation by Ms. Roxann Khan PA-C reviewed. FINAL ASSESSMENT AND PLAN as follows : Traumatic left shoulder injury Acute on chronic anemia Hemoglobin drop from baseline secondary to left shoulder joint injury/chest wall ecchymosis Chronic respiratory failure hx COPD/RLD as per records hx OHS on BIPAP Baseline wheezing symptoms on clinical exam without unusual shortness of breath History diastolic heart failure/hypertension, patient euvolemic hx Parkinson's disease status post deep brain stimulator placement, [place] [facility] [place], stable hx PVD Prediabetes, hemoglobin A1c of 6 from last year past tobacco abuse hx of MRSA OBS [facility] Orthopedics consult Re: Left shoulder injury, abnormal x-ray (Patient known to [facility] Follow H&H, transfuse PRBC if hemoglobin less than 8 and or for symptomatic anemia (hx PVD) PT OT eval DVT prophylaxis with SCDs Re: Chest wall ecchymosis Full code Patient's requesting updates from providers. Irasema Dominique Lynn, contact #[phone]. Text document was generated using [employer] voice recognition software. It may contain grammatical or spelling errors. Kindly contact undersigned for clarification of any documentation item in question. (1) Closed Hill-Sachs fracture of left humerus Encounter type: initial encounter Qualified Code(s): S42.292A - Other displaced fracture of upper end of left humerus, initial encounter for closed fracture
[2022-08-27 20:53] LABS: Basophils # (auto) 0.04 K/uL (0-0.2); Basophils % (auto) 0.4 %; Eosinophils # (auto) 0.17 K/uL (0-0.50); Eosinophils % (auto) 1.8 %; Hematocrit (blood only) 36.6 % (40.1-51.0); Hemoglobin 11.8 g/dl (14.0-18.0); Immature Granulocytes # (auto) 0.08 K/uL (0.00-0.02); Immature Granulocytes % (auto) 0.8 %; Lymphocytes # (auto) 1.03 K/uL (1.2-3.4); Lymphocytes % (auto) 10.8 %; Mean Corpuscular Hemoglobin 29.6 pg (25.0-34.0); Mean Corpuscular Hgb Conc 32.2 g/dL (32.0-36.0); Mean Platelet Volume 9.1 fL (9.4-12.4); Monocytes # (auto) 1.16 K/uL (0.24-0.82); Monocytes % (auto) 12.2 %; Neutrophils # (auto) 7.06 K/uL (1.4-6.5); Platelet Count 438 K/uL (130-400); RDW Coefficient of Variation 14.8 % (11.5-14.5); RDW Standard Deviation 50.4 fL (36.4-46.3); Red Blood Count 3.98 M/uL (4.63-6.08); White Blood Count 9.54 K/ul (4.8-10.8)
[2022-08-27 21:16] LABS: BUN Creatinine Ratio 32.2 (10-20); Calcium 8.2 mg/dl (8.5-10.1); Creatinine Clr Calc Pharmacy 125.4 ml/min; Est GFR (African American) 118.9 ml/min; Est GFR (Non-African American) 102.6 ml/min; Potassium 3.8 mmol/L (3.5-5.1)
--- NOTE | 2022-08-27 21:42 | Emergency Department Note ---
History of Present Illness General Chief complaint: Shoulder Pain Stated complaint: POSSIBLE SHOULDER DISLOCATION 10 DAYS AGO Time Seen by Provider: 08/27/22 19:02 History of Present Illness Maximum Pain Intensity: 8 72-year-old male who presents to the emergency department via ambulance with his for evaluation of left shoulder pain. Patient has a history of Parkinson's disease, and along with a history of right shoulder replacement in December of this year, has limited use of his arms for mobility. The reports that he is unable to ambulate or weight-bear, therefore she has to transfer him in their home. The patient does have home health care weekly, and after the patient fell 10 days ago, the reports that they constantly nagged their PCP that something was not right. The patient ended up having a portable x-ray performed of the shoulder, and was told that it is either broken or dislocated. The then elected to have the patient brought to the emergency department for further evaluation. She reports that she is unable to transfer the patient because he cannot use his left upper extremity. The patient rates his discomfort an 8 out of 10. The patient is right-hand dominant. Home Medications Medication Instructions Recorded Confirmed Type albuterol sulfate 2.5 mg/3 mL 2.5 mg inhalation Q4 PRN Shortness 01/21/20 08/27/22 History (0.083 %) solution for nebulization Of Breath Or Wheezing carbidopa 25 mg-levodopa 100 mg 1.5 tab PO 6XD 01/21/20 08/27/22 History tablet carbidopa ER 50 mg-levodopa 200 mg 1 tab PO HS 01/21/20 08/27/22 History tablet,extended release cyanocobalamin (vitamin B-12) 1,000 mcg PO DAILY 01/21/20 08/27/22 History 1,000 mcg tablet fluticasone propionate 50 2 spray intranasal DAILY 01/21/20 08/27/22 History mcg/actuation nasal spray,suspension omeprazole 20 mg capsule,delayed 20 mg PO QAM 01/21/20 08/27/22 History release tamsulosin 0.4 mg capsule 0.4 mg PO HS 01/21/20 08/27/22 History cholecalciferol (vitamin D3) 50 50 mcg PO DAILY 07/31/21 08/27/22 History mcg (2,000 unit) tablet (Vitamin D3) omega-3 fatty acids 1,000 mg PO DAILY 07/31/21 08/27/22 History furosemide 40 mg tablet 40 mg PO DAILY 08/27/22 08/27/22 History lisinopril 5 mg tablet 5 mg PO DAILY 08/27/22 08/27/22 History ropinirole 12 mg tablet,extended 12 mg PO HS 08/27/22 08/27/22 History release 24 hr ropinirole 3 mg tablet 3 mg PO QID 08/27/22 08/27/22 History Allergies Allergy/AdvReac Type Severity Reaction Status Date / Time sulindac AdvReac Intermediate STOMACH Verified 07/31/21 03:17 IRRATION Past Med/Surg History Medical History BPH (benign prostatic hypertrophy) Chronic diastolic heart failure COPD (chronic obstructive pulmonary disease) Dyslipidemia GERD (gastroesophageal reflux disease) History of kidney stones HTN (hypertension) Hypercapnic respiratory failure Iron deficiency anemia YOON (obstructive sleep apnea) bipap with 2.5L oxygen Parkinson disease Surgical History H/O inguinal hernia repair H/O shoulder surgery reverse total shoulder arthroplasty- right. 01/2017. Dr Helton at [facility] revision total shoulder arthroplasty -right. 11/2021. Dr Orozco at [facility] S/P deep brain stimulator placement Family History Other Asthma Diabetes Hypertension Prostate cancer Social History Smoking Status: Former smoker Tobacco Type: Cigarettes Hx Alcohol Use: No Hx Substance Use: No Preferred Language: Macedonian Communication Ability: Effective Operating Room Tech Required: No Beliefs That Will Affect Care: None marital status: Current Living Situation: Spouse Feels Safe at Home: Yes Assistive Devices: Glasses, Hearing Aid - Bilateral and Oxygen - Continuous Review of Systems Review of systems was extremely limited because the patient was very difficult to understand with his speech, that the reports is baseline. Physical Exam Vital Signs Vital Signs - 24 hr 08/27/22 18:44 08/27/22 21:09 Temperature 37.1 C Temperature Source Oral Pulse Rate 76 Pulse Rate [Finger] 83 Respiratory Rate 18 18 Respiratory Effort / Characteristics Non-Labored Spontaneous Respiratory Depth Normal Respiratory Pattern Regular Blood Pressure 138/86 Blood Pressure [Right Arm] 152/86 H Blood Pressure Mean 103 Blood Pressure Mean [Right Arm] 108 Blood Pressure Position Sitting Pulse Oximetry 96 96 Oxygen Delivery Method Room Air Room Air Sepsis Recent Fever Within 48 Hours No Sepsis New/Unexplained Change in Mental Status No Sepsis Action Taken by Nursing No Action Required CONSTITUTIONAL: Healthy and well nourished. Patient does not appear in any acute distress. HEENT: Normocephalic, atraumatic. RESPIRATORY: Clear to auscultation bilaterally with no wheezing, crackles, rhonchi or stridor. CARDIOVASCULAR: Regular rate and rhythm with no murmurs, rubs or gallops. GASTROINTESTINAL: Bowel sounds present in all quadrants. Soft and nontender to palpation. MUSCULOSKELETAL: Examination shows generalized tenderness to palpation about the left shoulder. No palpable deformity noted. Distal pulses are intact. INTEGUMENTARY: No rash or other significant dermatologic conditions noted. HEMATOLOGIC: No ecchymosis or petechiae. PSYCHIATRIC: Flat affect. NEUROLOGIC: Left deltoid, hand and fingers are sensory intact. Course Course Patient history and physical exam were performed. Nurses notes were reviewed. Vital signs were reviewed, showing an elevated blood pressure. Per nursing protocol, x-rays of the left shoulder and humerus were ordered and performed, showing a Hill-Sachs fracture of the humeral head, with mild subluxation. Suspected joint effusion is also noted with calcified joint bodies. Findings were discussed with the patient and . I did explain that the treatment would be shoulder immobilization. The reports again that she is unable to transfer the patient at home. At this point, I did recommend placement, discussing the case further with our [facility] service since it is after hours. The patient was initially resistant, but agreed that he cannot transfer on his own. The case was further discussed with our [employer], as well [facility] Please see his dictation for further treatment and final disposition. The case was also discussed with Dr. Dutta, ED attending physician, who agrees with work-up and hospitalist admission Medical Decision Making Medical Records Attestation: I reviewed the patient's medical records. Home Medications Current Medication List: was personally reviewed by me Laboratory Data Attestation: I reviewed the patient's lab results. Result diagrams: 08/27/22 20:38 08/27/22 20:38 Lab Results 08/27/22 08/27/22 08/27/22 Range/Units 20:38 20:38 20:49 WBC 9.54 (4.8-10.8) K/ul RBC 3.98 L (4.63-6.08) M/uL Hgb 11.8 L (14.0-18.0) g/dl Hct 36.6 L (40.1-51.0) % MCV 92.0 (80.0-100.0) fL MCH 29.6 (25.0-34.0) pg MCHC 32.2 (32.0-36.0) g/dL RDW Std Deviation 50.4 H (36.4-46.3) fL RDW Coeff of Helen 14.8 H (11.5-14.5) % Plt Count 438 H (130-400) K/uL MPV 9.1 L (9.4-12.4) fL Immature Gran % (Auto) 0.8 % Neut % (Auto) 74.0 % Lymph % (Auto) 10.8 % Eagle % (Auto) 12.2 % Eos % (Auto) 1.8 % Baso % (Auto) 0.4 % Neut # (Auto) 7.06 H (1.4-6.5) K/uL Lymph # (Auto) 1.03 L (1.2-3.4) K/uL Eagle # (Auto) 1.16 H (0.24-0.82) K/uL Eos # (Auto) 0.17 (0-0.50) K/uL Baso # (Auto) 0.04 (0-0.2) K/uL Immature Gran # (Auto) 0.08 H (0.00-0.02) K/uL Sodium 135 L (136-145) mmol/L Potassium 3.8 (3.5-5.1) mmol/L Chloride 96 L (98-107) mmol/L Carbon Dioxide 34 H (21-32) mmol/L Anion Gap 5 (3-11) BUN 19 (6-23) mg/dl Creatinine 0.59 L (0.6-1.4) mg/dl Est Cr Clr Drug Dosing 125.4 ml/min Est GFR ( Amer) 118.9 ml/min Est GFR (Non-Af Amer) 102.6 ml/min BUN/Creatinine Ratio 32.2 H (10-20) Glucose 99 (70-99(Fasting)) mg/dl Calcium 8.2 L (8.5-10.1) mg/dl Magnesium 2.0 (1.7-2.4) mg/dl SARS-CoV-2, RNA, NAAT NEGATIVE (NEGATIVE) Imaging Data Attestation: I personally reviewed and interpreted this imaging study as follows: My Impression: My interpretation of left shoulder and humerus x-rays shows a Hill-Sachs fracture of the humeral head, as well as a partial subluxation. Patient also is noted to have a joint effusion with additional calcified joint bodies. Further details are discussed in the following radiologist reports, which were also reviewed. Radiologist's Impression: Humerus X-Ray 08/27/22 18:54 LEFT SHOULDER 3 VIEWS; LEFT HUMERUS 2 VIEWS CLINICAL HISTORY: Left shoulder and arm pain. FINDINGS: 3 views of the left shoulder with AP and lateral views of the left humerus are obtained. No prior studies are available for comparison at the time of dictation. The examinations are degraded by inability to properly position the patient. The skeletal structures are osteopenic. There is an age- indeterminate Hill-Sachs lesion in the humeral head. Displaced fragments are not corticated and this may be acute. There is likely a joint effusion of the left shoulder with additional calcifications within the joint space. No additional findings are seen to suggest acute fracture at the shoulder joint. The distal humerus is intact. There is mild subluxation of the humeral head at the shoulder joint without catarina dislocation. The acromioclavicular joint appears maintained. The left elbow joint is grossly maintained. Soft tissue edema is present in the left upper extremity. The visualized left lung parenchyma is grossly clear. An electronic device projects over the upper chest. IMPRESSION: 1. Age indeterminant Hill-Sachs fracture of the humeral head which may be acute. Clinical correlation will be required. 2. No additional finding is seen to suggest acute fracture at the shoulder joint. The distal humerus is intact. 3. There is mild subluxation of the humeral head at the glenohumeral articulation without catarina dislocation. 4. Suspect a joint effusion of the left shoulder with additional calcified joint bodies. Electronically signed by: Jignesh Hernández M.D. 08/27/2022 7:39 PM Shoulder X-Ray 08/27/22 18:54 LEFT SHOULDER 3 VIEWS; LEFT HUMERUS 2 VIEWS CLINICAL HISTORY: Left shoulder and arm pain. FINDINGS: 3 views of the left shoulder with AP and lateral views of the left humerus are obtained. No prior studies are available for comparison at the time of dictation. The examinations are degraded by inability to properly position the patient. The skeletal structures are osteopenic. There is an age-ind eterminate Hill-Sachs lesion in the humeral head. Displaced fragments are not corticated and this may be acute. There is likely a joint effusion of the left shoulder with additional calcifications within the joint space. No additional findings are seen to suggest acute fracture at the shoulder joint. The distal humerus is intact. There is mild subluxation of the humeral head at the shoulder joint without catarina dislocation. The acromioclavicular joint appears maintained. The left elbow joint is grossly maintained. Soft tissue edema is present in the left upper extremity. The visualized left lung parenchyma is grossly clear. An electronic device projects over the upper chest. IMPRESSION: 1. Age indeterminant Hill-Sachs fracture of the humeral head which may be acute. Clinical correlation will be required. 2. No additional finding is seen to suggest acute fracture at the shoulder joint. The distal humerus is intact. 3. There is mild subluxation of the humeral head at the glenohumeral articulation without catarina dislocation. 4. Suspect a joint effusion of the left shoulder with additional calcified joint bodies. Electronically signed by: Jignesh Hernández M.D. 08/27/2022 7:39 PM Blood Pressure Blood Pressure Findings: Elevated blood pressure Blood Pressure Disposition: elevated BP felt to be situational MDM Narrative Impression & Plan Closed Hill-Sachs fracture of left humerus, Parkinson's disease, Fall at home Discharge Plan Visit Data Chief Complaint: Shoulder Pain Stated Complaint: POSSIBLE SHOULDER DISLOCATION 10 DAYS AGO ED Provider: Karl Dutta ED Midlevel Provider: Juan M Jiménez Discharge Problem: Closed Hill-Sachs fracture of left humerus, Parkinson's disease, Fall at home Forms Stand Alone Forms: [facility] [employer] Prescriptions Prescriptions: No Action carbidopa-levodopa 50-200 mg tablet extended release 1 tab PO HS tamsulosin 0.4 mg capsule 0.4 mg PO HS omeprazole 20 mg capsule,delayed release(DR/EC) 20 mg PO QAM Rx Instructions: take 1 hour before breakfast carbidopa-levodopa 25-100 mg tablet 1.5 tab PO 6XD albuterol sulfate 2.5 mg /3 mL (0.083 %) Solution For Nebulization 2.5 mg INHALATION Q4 PRN (Reason: Shortness Of Breath Or Wheezing) cyanocobalamin (vitamin B-12) 1,000 mcg Tablet 1,000 mcg PO DAILY fluticasone propionate 50 mcg/actuation spray,suspension 2 spray INTRANASAL DAILY omega-3 fatty acids Capsule 1,000 mg PO DAILY cholecalciferol (vitamin D3) [Vitamin D3] 50 mcg (2,000 unit) Tablet 50 mcg PO DAILY furosemide 40 mg tablet 40 mg PO DAILY ropinirole 3 mg tablet 3 mg PO QID lisinopril 5 mg tablet 5 mg PO DAILY ropinirole 12 mg tablet extended release 24 hr 12 mg PO HS Referrals Referrals: Miguel Angel Curran DO [Primary Care Provider] - : Closed Hill-Sachs fracture of left humerus Qualifiers: Encounter type: initial encounter Qualified Code(s): S42.292A - Other displaced fracture of upper end of left humerus, initial encounter for closed fracture Fall at home Qualifiers: Encounter type: initial encounter Qualified Code(s): W19.XXXA - Unspecified fall, initial encounter
[2022-08-27] MEDS ORDERED: LACTATED RINGER'S 1,000 ML IV ONE (21:54)
[2022-08-27] MEDS ORDERED: ALBUT/IPRATROP 3MG/0.5MG NEB 3 ML VIAL NEB STA (22:01)
[2022-08-27] MEDS ORDERED: XOPENEX/ATROVENT 1.25mg/0.5MG NEB COMBO NEB PRN (22:10)
--- NOTE | 2022-08-27 23:39 | XRay Report ---
SINGLE VIEW CHEST CLINICAL HISTORY: Wheezing. FINDINGS: An AP, portable, upright chest radiograph is compared to study dated 05/29/2022 and correlat ed with chest CT dated 07/31/2021. The examination is degraded by portable technique and by the patie nt's head partially obscuring the apices. A large hiatal hernia is noted. The heart is enlarged notin g atherosclerotic calcification of the thoracic aorta. The pulmonary vasculature is noncontrast. Park Warden irvin interstitial thickening is similar to previous. Scarring/atelectasis is noted at the lung bases. The lungs and pleural spaces are clear. No pneumothorax is seen. The skeletal structures are osteopen ic. A right shoulder arthroplasty is in place. There is an acute appearing fracture of the left humer al head with subluxation of the left shoulder joint. An electronic device is located in the left uppe r chest with leads extending to the neck. IMPRESSION: 1. Cardiomegaly with no acute cardiopulmonary abnormality identified. 2. Large hiatal hernia. 3. Acute appearing left humeral head fracture with subluxation of the left shoulder joint. ACT 112: Negative or not required by law. Electronically signed by: Jignesh Hernández M.D. 08/27/2022 10:59 PM
[2022-08-28] MEDS ORDERED: PROMETHAZINE HCL 12.5 MG in SODIUM CHLORIDE 0.9% 50 ML IV PRN (00:13)
[2022-08-28] MEDS ORDERED: ACETAMINOPHEN 325 MG TAB PO PRN (00:13)
[2022-08-28] MEDS ORDERED: MoRPHine SULFATE 4 MG/ML 1 ML CARP\\VIAL IV PRN (00:13)
[2022-08-28] MEDS ORDERED: oxyCODONE HCL IR 5 MG TAB (IMMEDIATE RELEASE) PO PRN (00:13)
[2022-08-28] MEDS: CARBIDOPA/LEVODOPA 50/200MG EXT REL TAB PO SCH ×3 (01:17→20:01)
[2022-08-28] MEDS: TAMSULOSIN HCL 0.4 MG CAP PO SCH ×2 (01:24→20:00)
[2022-08-28 06:43] LABS: Basophils # (auto) 0.03 K/uL (0-0.2); Basophils % (auto) 0.4 %; Eosinophils # (auto) 0.14 K/uL (0-0.50); Eosinophils % (auto) 1.7 %; Hematocrit (blood only) 34.2 % (40.1-51.0); Hemoglobin 11.2 g/dl (14.0-18.0); Immature Granulocytes # (auto) 0.05 K/uL (0.00-0.02); Immature Granulocytes % (auto) 0.6 %; Lymphocytes # (auto) 0.88 K/uL (1.2-3.4); Lymphocytes % (auto) 10.5 %; Mean Corpuscular Hemoglobin 29.8 pg (25.0-34.0); Mean Corpuscular Hgb Conc 32.7 g/dL (32.0-36.0); Mean Platelet Volume 8.9 fL (9.4-12.4); Monocytes % (auto) 10.7 %; Neutrophils # (auto) 6.42 K/uL (1.4-6.5); Neutrophils % (auto) 76.1 %; Platelet Count 375 K/uL (130-400); RDW Coefficient of Variation 14.9 % (11.5-14.5); RDW Standard Deviation 49.7 fL (36.4-46.3); Red Blood Count 3.76 M/uL (4.63-6.08); White Blood Count 8.42 K/ul (4.8-10.8)
[2022-08-28] MEDS: CARBIDOPA/LEVODOPA 25/100MG TAB PO SCH ×6 (07:52→22:31)
[2022-08-28] MEDS: rOPINIRole HCL 1 MG TABLET PO SCH ×4 (07:53→20:00)
[2022-08-28] MEDS: lisinopril 5 MG TAB PO SCH (07:54)
[2022-08-28] MEDS: CYANOCOBALAMIN (B-12) 500 MCG TABLET PO SCH (07:54)
[2022-08-28] MEDS: PANTOprazole 40 MG TAB PO SCH (07:54)
[2022-08-28] MEDS: FLUTICASONE PROPIONATE NA SPR 16 GM BTL SCH (07:54)
--- NOTE | 2022-08-28 08:18 | Orthopedic Consultation ---
Date of Service August 28, 2022 Assessment & Plan (1) Injury of shoulder, left: (2) Dysfunction of left rotator cuff: (3) Instability of left shoulder joint: Plan Patient presents with acute decline to his left shoulder function. CT suggests a bony Bankart fracture of the glenoid which may be acute and a chronic Hill- Sachs deformity in the setting of severe degenerative change of the glenohumeral joint. The joint is reduced on advanced imaging. The conversation with the patient was limited due to my inability to understand him. His did not answer my phone calls. I did review the diagnosis based on this imaging and his history. I related that I think that he may have experienced an instability event resulting in periarticular fracture. I do think he could be managed nonoperatively and this seemed to be his preference. I stated the only surgical treatment option would be a reverse shoulder replacement, which he is familiar with from his history on the right shoulder. He immediately appeared to decline any suggestion of surgical intervention of the left shoulder. Nonsurgical treatment is entirely appropriate in the setting. Would recommend use of a sling for comfort, particular when out of bed. He can be active assisted range of motion as tolerated. He should not perform any significant weightbearing on the left upper extremity for 4 to 6 weeks or until comfort improves. There should be caution with assisting for transfers with the left upper extremity. I recommend a follow-up with his recent shoulder surgeon at some point after discharge from the hospital. Contact with any further questions. I can be reached via [place] text dallin alvarez History of Present Illness Reason for Consultation: Left shoulder injury Requesting Physician: . Attending Physician: Anusha Saldaña MD 72-year-old male with history significant for Parkinson's s/p deep brain stimulator, right reverse and revision reverse shoulder arthroplasty, chronic diastolic heart failure, chronic hypoxic hypercapnic respiratory failure, COPD, YOON on BiPAP, and pulmonary hypertension presented to ER with complaint of left shoulder pain and was admitted because of inability for him and his to care for him due to transfer difficulty. Medical records reviewed. Apparently had difficulty pulling himself on a handle, and experience left shoulder pain. Usually has minimal range of motion through that shoulder, but now it is much worse. This complicates transfers. The right shoulder has a history of reverse shoulder arthroplasty that eventually required revision which occurred apparently in November of this year at [facility]. Patient states he is right-handed. Pain is tolerable unless he tries to move it. Ecchymosis improved. Edema throughout the LUE is slow to improve. Allergies Allergy/AdvReac Type Severity Reaction Status Date / Time sulindac AdvReac Intermediate STOMACH Verified 07/31/21 03:17 IRRATION Home Medications Medication Instructions Recorded Confirmed Type albuterol sulfate 2.5 mg/3 mL 2.5 mg inhalation Q4 PRN Shortness 01/21/20 08/27/22 History (0.083 %) solution for nebulization Of Breath Or Wheezing carbidopa 25 mg-levodopa 100 mg 1.5 tab PO 6XD 01/21/20 08/27/22 History tablet carbidopa ER 50 mg-levodopa 200 mg 1 tab PO HS 01/21/20 08/27/22 History tablet,extended release cyanocobalamin (vitamin B-12) 1,000 mcg PO DAILY 01/21/20 08/27/22 History 1,000 mcg tablet fluticasone propionate 50 2 spray intranasal DAILY 01/21/20 08/27/22 History mcg/actuation nasal spray,suspension omeprazole 20 mg capsule,delayed 20 mg PO QAM 01/21/20 08/27/22 History release tamsulosin 0.4 mg capsule 0.4 mg PO HS 01/21/20 08/27/22 History cholecalciferol (vitamin D3) 50 50 mcg PO DAILY 07/31/21 08/27/22 History mcg (2,000 unit) tablet (Vitamin D3) omega-3 fatty acids 1,000 mg PO DAILY 07/31/21 08/27/22 History furosemide 40 mg tablet 40 mg PO DAILY 08/27/22 08/27/22 History lisinopril 5 mg tablet 5 mg PO DAILY 08/27/22 08/27/22 History ropinirole 12 mg tablet,extended 12 mg PO HS 08/27/22 08/27/22 History release 24 hr ropinirole 3 mg tablet 3 mg PO QID 08/27/22 08/27/22 History Past Med/Surg History Medical History BPH (benign prostatic hypertrophy) Chronic diastolic heart failure Chronic hypercapnic respiratory failure COPD (chronic obstructive pulmonary disease) Dyslipidemia GERD (gastroesophageal reflux disease) History of kidney stones HTN (hypertension) Hypercapnic respiratory failure Iron deficiency anemia YOON (obstructive sleep apnea) bipap with 2.5L oxygen Parkinson disease Surgical History H/O inguinal hernia repair H/O shoulder surgery reverse total shoulder arthroplasty- right. 01/2017. Dr Helton at [facility] revision total shoulder arthroplasty -right. 11/2021. Dr Orozco at [facility] S/P deep brain stimulator placement Family History Other Asthma Diabetes Hypertension Prostate cancer Social History Smoking Status: Never smoker Tobacco Type: Cigarettes Second Hand Exposure: No; Do You Dip or Chew Tobacco: No; Tobacco Cessation Education Requested by Patient: No Hx Alcohol Use: No Hx Substance Use: No Preferred Language: Polish Communication Ability: Impaired Linoleum Tile Layer Required: No Beliefs That Will Affect Care: None marital status: Current Living Situation: Spouse Current Living Situation Comment: Home with spouse who is unable to care for him - Was to recieve home health Other Information That Helps Us Care for You: No Feels Safe at Home: Yes Safety Concerns: Feels Safe At This Time Assistive Devices: BiPap Review of Systems All systems reviewed & are unremarkable except as noted in HPI & below. Physical Exam LUE: There is diffuse edema from the shoulder down to the forearm. There is no apparent ecchymosis. He can flex his elbow to reach his mouth. He has trouble straightening it due to positioning in the bed. Intact range of motion of the wrist and digits. He is neurovascular intact. He is tender about the shoulder. On palpation it feels to be reduced. There is no deformity about the clavicle nor acromion. No crepitus about the humerus. Constitutional no acute distress Lying comfortably with head of bed elevated. He is eating on his own. He is very difficult to understand due to apparent facial paralysis but makes reasonable attempts to communicate. Psychiatric Orientation: alert and cooperative Eye Contact: good eye contact Results & Data Results & Data Laboratory Results Laboratory Tests 05/29/22 08/27/22 08/28/22 16:40 20:38 06:31 WBC 8.42 Hct 41.5 36.6 L 34.2 L Diagnostic Findings Left shoulder and humerus xrays show located glenohumeral joint with greater tuberosity deformity and fragmentation peripheral to the joint, possible within recesses of subacromial space CT shoulder: Shows that the glenohumeral joint is reduced. There is evidence of a bony Bankart lesion in the anterior-inferior glenoid, chronicity unclear. There is flattening of the Hill-Sachs region without significant depth. Chronic cystic changes to the humeral head. Severe degenerative change. PG Care Time/CCT Total # of Minutes Spent Total Time Spent with Patient: Total time spent is greater than 50% in coordination of care (as documented) at patient's floor/unit and/or counseling patient: Coding Level of Care Code 29299 Inpt Consult Level 4 Diagnoses Injury of shoulder, left S49.92XA Dysfunction of left rotator cuff M67.912 Instability of left shoulder joint M25.312
--- NOTE | 2022-08-28 13:27 | CT Scan Report ---
CT SCAN OF THE LEFT SHOULDER WITHOUT IV CONTRAST CLINICAL HISTORY: Humeral fracture. COMPARISON STUDY: Radiographs of the left humerus and shoulder dated 08/27/2022. TECHNIQUE: CT scan of the left shoulder is performed from the lower neck to the humeral shaft. Images are reviewed in the axial, sagittal, and coronal planes. IV contrast was not administered for this e xamination. 3-D reformats are created and assessed. A dose lowering technique was utilized adhering t o the principles of ALARA. The examination is compromised by motion artifact. CT DOSE: 883.16 mGy.cm FINDINGS: The skeletal structures are osteopenic. There is a Hill-Sachs type impaction fracture of th e humeral head with displaced bony fragments. The largest bone fragment measures up to 1.6 cm as seen on axial image #108. No additional acute fracture is clearly identified. No definite glenoid fractu re is seen. There is anterior/inferior subluxation of the humeral head without complete dislocation. Advanced arthritic change is seen in the left shoulder, with sclerosis and subchondral cyst formation in the humeral head and glenoid as well as flattening of the humeral head and glenoid. Mild producti ve degenerative change is seen at the acromioclavicular joint. There is a large complex joint effusio n/bursal fluid collection around the left shoulder with calcific debris and tiny bone fragments. No l ytic or blastic lesion is seen. Soft tissue edema overlies the left shoulder. The visualized left perez g parenchyma appears clear noting bibasilar atelectasis. The visualized left-sided ribs appear intact . There is generalized atrophy of the regional musculature. An electronic device is present in the le ft anterior chest wall with leads extending to the neck. IMPRESSION: 1. Hill-Sachs impaction fracture of the humeral head with large displaced fragments. 2. No additional fracture is clearly identified. No definite glenoid fracture is seen. 3. These findings indicate a dislocation type injury. 4. There is persistent subluxation of the humeral head without catarina dislocation at this time. 5. There is associated joint effusion and bursal fluid collection with calcific debris/bone fragments . 6. Advanced arthritic change is seen at the glenohumeral articulation. ACT 112: Negative or not required by law. Dictated: 08/28/2022 10:08 AM Transcribed: 08/28/2022 10:42 PAPO Ghosh [id number] [email or web address]_Kings Electronically signed by: Jignesh Hernández M.D. 08/28/2022 1:26 PM
[2022-08-28] MEDS: IPRATROPIUM BROMIDE NEB SOLN 0.02% 2.5 ML VIAL INH PRN (17:13)
[2022-08-28] MEDS: LEVALBUTEROL 1.25MG/0.5ML NEB INH PRN (17:13)
--- NOTE | 2022-08-28 18:26 | Hospitalist Progress Note ---
Date of Service August 28, 2022 Assessment & Plan (1) Closed Hill-Sachs fracture of left humerus: (2) Instability of left shoulder joint: (3) Injury of shoulder, left: Plan: Present on admission with worsening left shoulder pain Left humerus xray showed age indeterminant Hill-Sachs fracture of the humeral head which may be acute. There is mild subluxation of the humeral head at the glenohumeral articulation without catarina dislocation. CT left shoulder showed Hill-Sachs impaction fracture of the humeral head with large displaced fragments.There is persistent subluxation of the humeral head without catarina dislocation at this time. There is associated joint effusion and bursal fluid collection with calcific debris/bone fragments. Ortho on board recommended nonsurgical management for now Recommended the use of a sling for comfort, non weightbearing on the left upper extremity for 4 to 6 weeks or until comfort improves. He can be active assisted range of motion as tolerated as per ortho Continue pain control Will consult PT/OT eval Fall precaution YOON History of BiPAP?Cpap intolerance Continue cpap/bipap History diastolic heart failure No sign of volume overload Continue Lasix Hypertension BP stable Continue outpatient BP meds Hx Parkinson's disease status post deep brain stimulator placement Stable hypertension Continue Lisinopril Stable BPH Continue Flomax stable DVT prophylaxis SCD due to ecchymosis if remains in the hospital for another 24hrs, will add heparin subq Full code. Disposition Will discharge once medically stable Ms. Dominique Lynn, contact #[phone]. Admission and Anticipated Discharge Date Admission Date: August 27, 2022 Subjective Pt was seen and examined for follow up of L shoulder pain Lying in bed with no acute distress Pt said that his L shoulder pain worsening with movement He said last night he did not sleep well because there was a air leak coming from the mask of Cpap/Bipap that was making a loud noise Denies any chest pain, palpitation, dizziness and SOB Review of Systems Review of Systems: All systems reviewed & are unremarkable except as noted in Subjective Physical Exam Physical Exam: General- No acute distress Head- atraumatic Eyes- PERRL, EOMI, ENT- oropharynx clear Neck- supple, no JVD Lungs- clear to auscultation Heart- regular rhythm; no murmur Abdomen- normal bowel sounds, soft, nontender Extremities- no calf tenderness, LUE edema from shoulder to forearm, + L shoulder tenderness, unable to lift his LUE up due to the pain Neuro- alert, oriented x 3; PERRL, EOMI; no facial palsy; +dysarthria Skin- warm & dry Results & Data Results & Data ([facility]) Vital Signs (Past 12 Hours) Vital Signs Temp Pulse Resp BP Pulse Ox O2 Del Method O2 Flow Rate 08/28/22 17:15 85 24 96 Nasal Cannula 3 08/28/22 15:44 37.2 C 56 L 20 95/50 L 99 Nasal Cannula 2 08/28/22 12:03 37.1 C 127 H 19 106/67 97 Room Air 08/28/22 07:45 37.4 C 68 17 145/79 H 100 Room Air, Nasal Cannula 2 (1) Closed Hill-Sachs fracture of left humerus Encounter type: initial encounter Qualified Code(s): S42.292A - Other displaced fracture of upper end of left humerus, initial encounter for closed fracture
[2022-08-28] MEDS: MUPIROCIN 2% OINT 22 GM TUBE EXT SCH (20:33)
[2022-08-28] MEDS ORDERED: hydrOXYzine HCl 10 MG TAB PO STA (22:07)
[2022-08-29] MEDS: CARBIDOPA/LEVODOPA 25/100MG TAB PO SCH ×6 (06:42→20:43)
[2022-08-29] MEDS: rOPINIRole HCL 1 MG TABLET PO SCH ×4 (07:43→19:54)
[2022-08-29] MEDS: lisinopril 5 MG TAB PO SCH (07:43)
[2022-08-29] MEDS: CYANOCOBALAMIN (B-12) 500 MCG TABLET PO SCH (07:44)
[2022-08-29] MEDS: FLUTICASONE PROPIONATE NA SPR 16 GM BTL SCH (07:44)
[2022-08-29] MEDS: PANTOprazole 40 MG TAB PO SCH (07:44)
[2022-08-29] MEDS: MUPIROCIN 2% OINT 22 GM TUBE EXT SCH ×2 (07:44→19:55)
--- NOTE | 2022-08-29 14:34 | Hospitalist Progress Note ---
Date of Service August 29, 2022 Assessment & Plan (1) Closed Hill-Sachs fracture of left humerus: (2) Instability of left shoulder joint: (3) Injury of shoulder, left: Plan: Present on admission with worsening left shoulder pain Left humerus xray showed age indeterminant Hill-Sachs fracture of the humeral head which may be acute. There is mild subluxation of the humeral head at the glenohumeral articulation without catarina dislocation. CT left shoulder showed Hill-Sachs impaction fracture of the humeral head with large displaced fragments.There is persistent subluxation of the humeral head without catarina dislocation at this time. There is associated joint effusion and bursal fluid collection with calcific debris/bone fragments. Ortho on board recommended nonsurgical management for now Recommended the use of a sling for comfort, non weightbearing on the left upper extremity for 4 to 6 weeks or until comfort improves. He can be active assisted range of motion as tolerated as per ortho Continue pain control continue PT/OT eval Fall precaution Plan to go to rehab YOON History of BiPAP?Cpap intolerance Continue cpap/bipap History diastolic heart failure No sign of volume overload Continue Lasix Hypertension BP stable Continue outpatient BP meds Hx Parkinson's disease status post deep brain stimulator placement Stable hypertension Continue Lisinopril Stable BPH Continue Flomax stable DVT prophylaxis SCD due to ecchymosis if remains in the hospital for another 24hrs, will add heparin subq Full code. Disposition Will discharge once medically stable Ms. Dominique Lynn, contact #[phone]. Admission and Anticipated Discharge Date Admission Date: August 27, 2022 Subjective Pt was seen and examined for follow up of L shoulder pain Lying in bed with no acute distress Continue to have pain with movement of the L shoulder Denies any chest pain, palpitation, dizziness and SOB Review of Systems Review of Systems: All systems reviewed & are unremarkable except as noted in Subjective Physical Exam Physical Exam: General- No acute distress Head- atraumatic Eyes- PERRL, EOMI, ENT- oropharynx clear Neck- supple, no JVD Lungs- clear to auscultation Heart- regular rhythm; no murmur Abdomen- normal bowel sounds, soft, nontender Extremities- no calf tenderness, LUE edema from shoulder to forearm, + L shoulder tenderness, unable to lift his LUE up due to the pain Neuro- alert, oriented x 3; PERRL, EOMI; no facial palsy; +dysarthria Skin- warm & dry Results & Data Results & Data ([facility]) Vital Signs (Past 12 Hours) Vital Signs Temp Pulse Pulse Resp BP Pulse Ox O2 Del Method 08/29/22 11:27 36.5 C 80 19 113/70 96 Nasal Cannula 08/29/22 07:38 36.9 C 72 18 131/81 99 Nasal Cannula 08/29/22 07:09 Nasal Cannula 08/29/22 04:00 36.7 C 73 20 124/65 98 Nasal Cannula 08/29/22 04:19 CPAP 08/29/22 03:20 76 30 H 95 O2 Flow Rate 08/29/22 11:27 2 08/29/22 07:38 3 08/29/22 07:09 2 08/29/22 04:00 3 08/29/22 04:19 08/29/22 03:20 2 (1) Closed Hill-Sachs fracture of left humerus Encounter type: initial encounter Qualified Code(s): S42.292A - Other displaced fracture of upper end of left humerus, initial encounter for closed fracture
[2022-08-29] MEDS: TAMSULOSIN HCL 0.4 MG CAP PO SCH (19:55)
[2022-08-29] MEDS: CARBIDOPA/LEVODOPA 50/200MG EXT REL TAB PO SCH (19:56)
[2022-08-30] MEDS: CARBIDOPA/LEVODOPA 25/100MG TAB PO SCH ×6 (06:02→21:54)
[2022-08-30] MEDS: lisinopril 5 MG TAB PO SCH (08:37)
[2022-08-30] MEDS: PANTOprazole 40 MG TAB PO SCH (08:37)
[2022-08-30] MEDS: CYANOCOBALAMIN (B-12) 500 MCG TABLET PO SCH (08:38)
[2022-08-30] MEDS: MUPIROCIN 2% OINT 22 GM TUBE EXT SCH ×2 (08:38→20:33)
[2022-08-30] MEDS: FLUTICASONE PROPIONATE NA SPR 16 GM BTL SCH (08:38)
[2022-08-30] MEDS: rOPINIRole HCL 1 MG TABLET PO SCH ×4 (08:39→20:33)
[2022-08-30] MEDS: IPRATROPIUM BROMIDE NEB SOLN 0.02% 2.5 ML VIAL INH PRN ×2 (11:15→21:30)
[2022-08-30] MEDS: LEVALBUTEROL 1.25MG/0.5ML NEB INH PRN ×2 (11:16→21:39)
[2022-08-30] MEDS: TAMSULOSIN HCL 0.4 MG CAP PO SCH (20:32)
[2022-08-30] MEDS: CARBIDOPA/LEVODOPA 50/200MG EXT REL TAB PO SCH (20:33)
--- NOTE | 2022-08-30 23:58 | Hospitalist Progress Note ---
Date of Service August 30, 2022 Assessment & Plan (1) Closed Hill-Sachs fracture of left humerus: (2) Instability of left shoulder joint: (3) Injury of shoulder, left: Plan: Present on admission with worsening left shoulder pain Left humerus xray showed age indeterminant Hill-Sachs fracture of the humeral head which may be acute. There is mild subluxation of the humeral head at the glenohumeral articulation without catarina dislocation. CT left shoulder showed Hill-Sachs impaction fracture of the humeral head with large displaced fragments.There is persistent subluxation of the humeral head without catarina dislocation at this time. There is associated joint effusion and bursal fluid collection with calcific debris/bone fragments. Ortho on board recommended nonsurgical management for now Recommended the use of a sling for comfort, non weightbearing on the left upper extremity for 4 to 6 weeks or until comfort improves. He can be active assisted range of motion as tolerated as per ortho Continue pain control continue PT/OT eval Fall precaution Waiting for placement to go to rehab YOON History of BiPAP?Cpap intolerance Continue cpap/bipap History diastolic heart failure No sign of volume overload Continue Lasix Hypertension BP stable Continue outpatient BP meds Hx Parkinson's disease status post deep brain stimulator placement Stable hypertension Continue Lisinopril Stable BPH Continue Flomax stable DVT prophylaxis SCD due to ecchymosis if remains in the hospital for another 24hrs, will add heparin subq Full code. Disposition Will discharge once medically stable Ms. Dominique Lynn, contact #[phone]. Admission and Anticipated Discharge Date Admission Date: August 29, 2022 Subjective Pt was seen and examined for follow up of L shoulder pain Lying in bed with no acute distress Continue to have pain with movement of the L shoulder Denies any chest pain, palpitation, dizziness and SOB Waiting for placement to rehab Review of Systems Review of Systems: All systems reviewed & are unremarkable except as noted in Subjective Physical Exam Physical Exam: General- No acute distress Head- atraumatic Eyes- PERRL, EOMI, ENT- oropharynx clear Neck- supple, no JVD Lungs- clear to auscultation Heart- regular rhythm; no murmur Abdomen- normal bowel sounds, soft, nontender Extremities- no calf tenderness, LUE edema from shoulder to forearm, + L shoulder tenderness, unable to lift his LUE up due to the pain Neuro- alert, oriented x 3; PERRL, EOMI; no facial palsy; +dysarthria Skin- warm & dry Results & Data Results & Data ([facility]) Vital Signs (Past 12 Hours) Vital Signs Temp Pulse Pulse Resp BP Pulse Ox O2 Del Method 08/30/22 23:32 37.0 C 74 20 123/72 90 Room Air 08/30/22 23:04 64 17 91 08/30/22 21:45 94 H 27 H 94 Room Air 08/30/22 20:45 Room Air 08/30/22 16:05 36.8 C 77 16 139/67 93 Room Air 08/30/22 15:40 37.1 C 82 18 96/56 L 92 Room Air (1) Closed Hill-Sachs fracture of left humerus Encounter type: initial encounter Qualified Code(s): S42.292A - Other displaced fracture of upper end of left humerus, initial encounter for closed fracture
[2022-08-31] MEDS: CARBIDOPA/LEVODOPA 25/100MG TAB PO SCH ×6 (06:35→21:33)
[2022-08-31] MEDS: rOPINIRole HCL 1 MG TABLET PO SCH ×4 (08:51→20:56)
[2022-08-31] MEDS: CYANOCOBALAMIN (B-12) 500 MCG TABLET PO SCH (08:51)
[2022-08-31] MEDS: MUPIROCIN 2% OINT 22 GM TUBE EXT SCH ×2 (08:51→20:57)
[2022-08-31] MEDS: PANTOprazole 40 MG TAB PO SCH (08:52)
[2022-08-31] MEDS: FLUTICASONE PROPIONATE NA SPR 16 GM BTL SCH (08:52)
[2022-08-31] MEDS: lisinopril 5 MG TAB PO SCH (08:52)
[2022-08-31] MEDS: IPRATROPIUM BROMIDE NEB SOLN 0.02% 2.5 ML VIAL INH PRN ×2 (11:06→17:42)
[2022-08-31] MEDS: LEVALBUTEROL 1.25MG/0.5ML NEB INH PRN ×2 (11:06→17:42)
--- NOTE | 2022-08-31 16:59 | Hospitalist Progress Note ---
Date of Service August 31, 2022 Assessment & Plan (1) Closed Hill-Sachs fracture of left humerus: (2) Instability of left shoulder joint: (3) Injury of shoulder, left: Plan: Present on admission with worsening left shoulder pain Left humerus xray showed age indeterminant Hill-Sachs fracture of the humeral head which may be acute. There is mild subluxation of the humeral head at the glenohumeral articulation without catarina dislocation. CT left shoulder showed Hill-Sachs impaction fracture of the humeral head with large displaced fragments.There is persistent subluxation of the humeral head without catarina dislocation at this time. There is associated joint effusion and bursal fluid collection with calcific debris/bone fragments. Ortho on board recommended nonsurgical management for now Recommended the use of a sling for comfort, non weightbearing on the left upper extremity for 4 to 6 weeks or until comfort improves. He can be active assisted range of motion as tolerated as per ortho Continue pain control continue PT/OT eval Fall precaution Waiting for placement to go to rehab tomorrow YOON History of BiPAP?Cpap intolerance Continue cpap/bipap History diastolic heart failure No sign of volume overload Continue Lasix Hypertension BP stable Continue outpatient BP meds Hx Parkinson's disease status post deep brain stimulator placement Stable hypertension Continue Lisinopril Stable BPH Continue Flomax stable DVT prophylaxis SCD due to ecchymosis Full code. Disposition Plan to discharge tomorrow. Transport schedule for noon. Ms. Dominique Lynn, contact #[phone]. Admission and Anticipated Discharge Date Admission Date: August 29, 2022 Subjective Pt was seen and examined for follow up of L shoulder pain Lying in bed with no acute distress Denies any chest pain, palpitation, dizziness and SOB Plan to discharge to rehab tomorrow Review of Systems Review of Systems: All systems reviewed & are unremarkable except as noted in Subjective Physical Exam Physical Exam: General- No acute distress Head- atraumatic Eyes- PERRL, EOMI, ENT- oropharynx clear Neck- supple, no JVD Lungs- clear to auscultation Heart- regular rhythm; no murmur Abdomen- normal bowel sounds, soft, nontender Extremities- no calf tenderness, LUE edema from shoulder to forearm, + L shoulder tenderness, unable to lift his LUE up due to the pain Neuro- alert, oriented x 3; PERRL, EOMI; no facial palsy; +dysarthria Skin- warm & dry Results & Data Results & Data ([facility]) Vital Signs (Past 12 Hours) Vital Signs Temp Pulse Resp BP Pulse Ox O2 Del Method O2 Flow Rate 08/31/22 15:05 36.7 C 87 16 144/79 H 93 Room Air 08/31/22 11:06 86 22 94 Room Air 08/31/22 08:04 37.0 C 83 20 131/73 96 Nasal Cannula 2 08/31/22 07:21 Room Air (1) Closed Hill-Sachs fracture of left humerus Encounter type: initial encounter Qualified Code(s): S42.292A - Other displaced fracture of upper end of left humerus, initial encounter for closed fracture
[2022-08-31] MEDS: TAMSULOSIN HCL 0.4 MG CAP PO SCH (20:56)
[2022-08-31] MEDS: CARBIDOPA/LEVODOPA 50/200MG EXT REL TAB PO SCH (20:58)
[2022-08-31] MEDS ORDERED: ROPINIROLE PO SCH (21:00)
[2022-08-31] MEDS: HEPARIN SOD 5,000 UNIT/0.5 ML VIAL SQ SCH (21:02)
[2022-09-01] MEDS: CARBIDOPA/LEVODOPA 25/100MG TAB PO SCH ×2 (06:00→09:11)
[2022-09-01] MEDS: IPRATROPIUM BROMIDE NEB SOLN 0.02% 2.5 ML VIAL INH PRN (06:25)
[2022-09-01] MEDS: LEVALBUTEROL 1.25MG/0.5ML NEB INH PRN (06:25)
[2022-09-01] MEDS: FLUTICASONE PROPIONATE NA SPR 16 GM BTL SCH (08:49)
[2022-09-01] MEDS: MUPIROCIN 2% OINT 22 GM TUBE EXT SCH (08:49)
[2022-09-01] MEDS: lisinopril 5 MG TAB PO SCH (08:50)
[2022-09-01] MEDS: HEPARIN SOD 5,000 UNIT/0.5 ML VIAL SQ SCH (08:50)
[2022-09-01] MEDS: rOPINIRole HCL 1 MG TABLET PO SCH (08:51)
[2022-09-01] MEDS: PANTOprazole 40 MG TAB PO SCH (08:51)
[2022-09-01] MEDS: CYANOCOBALAMIN (B-12) 500 MCG TABLET PO SCH (08:51)
--- NOTE | 2022-09-01 09:28 | Hospitalist Progress Note ---
Date of Service September 01, 2022 Assessment & Plan (1) Closed Hill-Sachs fracture of left humerus: Plan: Management conservative and as documented below Will need Ortho appointment in 4 to 6 weeks (2) Instability of left shoulder joint: (3) Injury of shoulder, left: Plan: Age indeterminant Hill-Sachs fracture of the humeral head which may be acute Present on admission with worsening left shoulder pain Left humerus xray showed age indeterminant Hill-Sachs fracture of the humeral head which may be acute. There is mild subluxation of the humeral head at the glenohumeral articulation without catarina dislocation. CT left shoulder showed Hill-Sachs impaction fracture of the humeral head with large displaced fragments.There is persistent subluxation of the humeral head without catarina dislocation at this time. There is associated joint effusion and bursal fluid collection with calcific debris/bone fragments. Ortho on board recommended nonsurgical management for now Recommended the use of a sling for comfort, non weightbearing on the left upper extremity for 4 to 6 weeks or until comfort improves. He can be active assisted range of motion as tolerated as per ortho Continue pain control Continue PT/OT Accepted to [facility] and will be transferred to [facility] this afternoon YOON History of BiPAP?Cpap intolerance Continue cpap/bipap Denies any symptoms at rest and was advised to continue with CPAP/BiPAP as before History diastolic heart failure No sign of volume overload Continue Lasix Hypertension BP stable Continue outpatient BP meds Hx Parkinson's disease status post deep brain stimulator placement Stable without any significant tremor at rest hypertension Continue Lisinopril Stable BPH Continue Flomax stable DVT prophylaxis SCD due to ecchymosis Full code. Disposition Plan to discharge tomorrow. Transport schedule for noon. Ms. Dominique Lynn, contact #[phone]. Remains medically stable and can be transferred to [facility] this afternoon Admission and Anticipated Discharge Date Admission Date: August 29, 2022 Subjective 09/01/2022 The patient was seen and examined in medical telemetry unit He has been stable and denies any symptoms at rest Denies any pain in the left shoulder No chest pain, palpitation or shortness of breath. Is ready to be discharged to [facility] this afternoon Review of Systems Review of Systems: All systems reviewed and are unremarkable except as noted below Physical Exam Physical Exam: Lying in bed comfortably Constitutional: well developed, well nourished and + obese; not ill appearing Eyes: PERRL, conjunctivae normal, anicteric sclerae ENMT: external ear and nose normal, oropharynx normal Neck: Neck deformity and leaning towards the right side Respiratory: no respiratory distress Auscultation: lungs clear to auscultation bilaterally Cardiovascular: Rate/Rhythm: regular rate, regular rhythm and + bradycardic Heart Sounds: normal S1 and normal S2; no murmur Extremities: no edema Gastrointestinal (Abdomen): Inspection/Auscultation: normal bowel sounds; abdomen not distended Percussion/Palpation: abdomen soft; abdomen nontender Musculoskeletal: Shoulder: + limited ROM (Limited movement of the left shoulder joint with associated pain) Has severe osteoarthritic changes involving the extremities but no acute arthritis in any joint Neurologic: Alert, awake and oriented x3. Generally weak but no focal neurodeficit Lymphatic: no cervical or axillary lymphadenopathy Results & Data Results & Data ([facility]) Vital Signs (Past 12 Hours) Vital Signs Temp Pulse Pulse Resp BP Pulse Ox O2 Del Method 09/01/22 07:24 36.8 C 58 L 18 136/66 92 Room Air 09/01/22 07:04 Room Air, BiPAP 09/01/22 06:29 69 18 93 Room Air 09/01/22 02:44 77 25 H 94 08/31/22 23:04 36.5 C 87 20 104/66 92 BiPAP 08/31/22 22:21 104 H 29 H 94 FiO2 09/01/22 07:24 09/01/22 07:04 09/01/22 06:29 09/01/22 02:44 21 08/31/22 23:04 08/31/22 22:21 21 Medications Administered Current Inpatient Medications Acetaminophen (Acetaminophen 325 Mg Tab) 650 mg PO Q4H PRN PRN Reason: pain/fever Stop: 09/27/22 00:12 Carbidopa/Levodopa (Carbidopa/Levodopa 50/200mg Ext Rel Tab) 1 tab PO HS TAMMY Stop: 09/27/22 00:12 Last Admin: 08/31/22 20:58 Dose: 1 tab Carbidopa/Levodopa (Carbidopa/Levodopa 25/100mg Tab) 1.5 tab PO [id number] TAMMY Stop: 09/27/22 06:59 Last Admin: 09/01/22 09:11 Dose: 1.5 tab Cyanocobalamin (Cyanocobalamin (B-12) 500 Mcg Tablet) 1,000 mcg PO DAILY [facility] Stop: 09/27/22 08:59 Last Admin: 09/01/22 08:51 Dose: 1,000 mcg Fluticasone Propionate (Fluticasone Propionate Na Spr 16 Gm Btl) 2 sprays NA DAILY TAMMY Stop: 09/27/22 08:59 Last Admin: 09/01/22 08:49 Dose: 2 sprays Heparin Sodium (Porcine) (Heparin Sod 5,000 Unit/0.5 Ml Vial) 5,000 units SQ Q12 TAMMY Stop: 09/30/22 20:59 Last Admin: 09/01/22 08:50 Dose: 5,000 units Promethazine HCl 12.5 mg/ (Sodium Chloride) 50.5 mls @ 202 mls/hr IV Q6H PRN PRN Reason: Nausea And Vomiting Stop: 09/27/22 00:12 Ipratropium Fountain (Ipratropium Fountain Neb Soln 0.02% 2.5 Ml Vial) 0.5 mg INH Q4H PRN PRN Reason: sob wheeze Stop: 09/26/22 22:14 Last Admin: 09/01/22 06:25 Dose: 0.5 mg Levalbuterol HCl (Levalbuterol 1.25mg/0.5ml Neb) 1.25 mg INH Q4H PRN PRN Reason: sob wheeze Stop: 09/26/22 22:14 Last Admin: 09/01/22 06:25 Dose: 1.25 mg Lisinopril (Lisinopril 5 Mg Tab) 5 mg PO DAILY [facility] Stop: 09/27/22 08:59 Last Admin: 09/01/22 08:50 Dose: 5 mg Morphine Sulfate (Morphine Sulfate 4 Mg/Ml 1 Ml Carp\Vial) 4 mg IV Q6H PRN PRN Reason: Pain Stop: 09/11/22 00:12 Mupirocin (Mupirocin 2% Oint 22 Gm Tube) 1 appln EXT BID [facility] Stop: 09/02/22 20:59 Last Admin: 09/01/22 08:49 Dose: 1 appln Non-Formulary Patient's Own Med: Ropinerole Xr 12mg Tab 1 each PO HS [facility] Stop: 09/30/22 20:59 Last Admin: 08/31/22 20:57 Dose: 1 tab Oxycodone HCl (Oxycodone Hcl Ir 5 Mg Tab (Immediate Release)) 5 mg PO Q4H PRN PRN Reason: Pain Stop: 09/11/22 00:12 Pantoprazole Sodium (Pantoprazole 40 Mg Tab) 40 mg PO QAM [facility] Stop: 09/27/22 08:59 Last Admin: 09/01/22 08:51 Dose: 40 mg Ropinirole HCl (Ropinirole Hcl 1 Mg Tablet) 3 mg PO QID [facility] Stop: 09/27/22 08:59 Last Admin: 09/01/22 08:51 Dose: 3 mg Tamsulosin HCl (Tamsulosin Hcl 0.4 Mg Cap) 0.4 mg PO HS [facility] Stop: 09/27/22 00:12 Last Admin: 08/31/22 20:56 Dose: 0.4 mg (1) Closed Hill-Sachs fracture of left humerus Encounter type: initial encounter Qualified Code(s): S42.292A - Other displaced fracture of upper end of left humerus, initial encounter for closed fracture
--- NOTE | 2022-09-02 07:39 | Discharge Summary ---
Date of Service September 01, 2022 Admission HPI Per Admitting Provider Patient is 72-year-old male with PMH Parkinson's s/p deep brain stimulator, HTN, dyslipidemia, chronic diastolic heart failure, chronic hypoxic hypercapnic respiratory failure, COPD, YOON on BiPAP, pulmonary hypertension, iron deficiency anemia, GERD, BPH presents to ER with complaint of left shoulder pain. History obtained from patient and patient's . Reports on 08/16/22 patient was getting into car and pulled himself up with the grab bar in the car and he states he felt burning type sensation. states called Kat at home who reached out to ortho and thought it may be rotator cuff tear and was treated with Medrol dosepak. States had ecchymosis left shoulder extending to left chest wall. The ecchymosis has since decreased. Has swelling of entire LUE. Patient states no significant pain with rest. States limited ROM of left shoulder prior to injury but now is unable to use left shoulder. He states has limited movement left elbow and can move wrist and fingers as per baseline. Denies numbness/tingling. Denies any other complaints. Is right hand dominant. Denies fever/chills, diaphoresis, N/V/D/C, ROSEN, dizziness, syncope, vision changes, neck pain, CP, SOB, orthopnea, palpitations, cough, sore throat, otalgia, rhinorrhea, abdominal pain, increased lower extremity edema, rashes, urinary symptoms. Admission Exam Per Admitting Provider Physical Exam: General: no distress, WDWN Head: normocephalic, atraumatic Eyes: conjunctiva non-injected, anicteric ENT: hard of hearing, normal inspection external ears, nose, mucous membranes moist Neck: supple, trachea midline Lungs: clear, no respiratory distress, no wheezing/rhonchi/rales CV: RRR, no murmur, 1-2+ pretibial edema Abd: normal BS, soft, non-tender Ext: no cyanosis, no calf tenderness; LUE: +edema entire LUE, +apparent resolving ecchymosis axilla and left breast, +tenderness to palpation anterior left shoulder, no active ROM shoulder, limited to pronation and supination hand, group captain strength intact, distal pulses intact, sensation to light touch intact Neuro: A&O x 3, +speech dysarthria, flat affect Skin: warm, dry Principal Diagnosis Closed Hill-Sachs fracture of left humerus, YOON, controlled diastolic heart failure, hypertension Discharge Exam Lying in bed comfortably Constitutional well developed, well nourished and + obese; not ill appearing Eyes PERRL, conjunctivae normal, anicteric sclerae ENMT external ear and nose normal, oropharynx normal Respiratory no respiratory distress Auscultation: lungs clear to auscultation bilaterally Cardiovascular Rate/Rhythm: regular rate, regular rhythm and + bradycardic Heart Sounds: normal S1 and normal S2; no murmur Extremities: no edema Gastrointestinal (Abdomen) Inspection/Auscultation: normal bowel sounds; abdomen not distended Percussion/Palpation: abdomen soft; abdomen nontender Musculoskeletal Shoulder: + limited ROM (Limited movement of the left shoulder joint with associated pain) Lymphatic no cervical or axillary lymphadenopathy Discharge Data Allergies Allergy/AdvReac Type Severity Reaction Status Date / Time sulindac AdvReac Intermediate STOMACH Verified 07/31/21 03:17 IRRATION Consultations 08/27/22 22:31 Consult Orthopedic Surgery Routine Ordered Studies 08/28/22 07:59 CT shoulder LT wo con Urgent Hospital Course (1) Closed Hill-Sachs fracture of left humerus: Management conservative and as documented below Will need Ortho appointment in 4 to 6 weeks (2) Instability of left shoulder joint: (3) Injury of shoulder, left: Age indeterminant Hill-Sachs fracture of the humeral head which may be acute Present on admission with worsening left shoulder pain Left humerus xray showed age indeterminant Hill-Sachs fracture of the humeral head which may be acute. There is mild subluxation of the humeral head at the glenohumeral articulation without catarina dislocation. CT left shoulder showed Hill-Sachs impaction fracture of the humeral head with large displaced fragments.There is persistent subluxation of the humeral head without catarina dislocation at this time. There is associated joint effusion and bursal fluid collection with calcific debris/bone fragments. Ortho on board recommended nonsurgical management for now Recommended the use of a sling for comfort, non weightbearing on the left upper extremity for 4 to 6 weeks or until comfort improves. He can be active assisted range of motion as tolerated as per ortho Continue pain control Continue PT/OT Accepted to [facility] and will be transferred to [facility] this afternoon YOON History of BiPAP?Cpap intolerance Continue cpap/bipap Denies any symptoms at rest and was advised to continue with CPAP/BiPAP as before History diastolic heart failure No sign of volume overload Continue Lasix Hypertension BP stable Continue outpatient BP meds Hx Parkinson's disease status post deep brain stimulator placement Stable without any significant tremor at rest hypertension Continue Lisinopril Stable BPH Continue Flomax stable DVT prophylaxis SCD due to ecchymosis Full code. Disposition Plan to discharge tomorrow. Transport schedule for noon. Ms. Dominique Lynn, contact #[phone]. Remains medically stable and can be transferred to [facility] this afternoon Total Time Total Time Spent Total Time Spent (In Minutes): 35 minutes Discharge Plan Discharge Items Patient Disposition: Transfer [facility] Reason For Visit: L SHOULDER PAIN Discharge Diagnosis: Closed Hill-Sachs fracture of left humerus, YOON, controlled diastolic heart failure, hypertension Condition on Discharge: Fair Activity: As commented below Activity Comment: Continue PT OT as recommended by Ortho Non-emergency contact: Primary Care Provider Call non-emergency contact if: you have any medication questions and your symptoms worsen Follow-up/Referrals: Miguel Angel Curran, DO [Primary Care Provider] - (Please make an appointment with your PCP within 1 week following discharge from the facility) Diet: Regular Diet Texture: Easy to Chew Addtl Attending Provider Instructions: Please take precautions to avoid falls Use sling for comfort of left shoulder while out of bed. Will need to make an appointment with orthopedic surgeon within 4-[address] Orozco at [facility]-as recommended by orthopedic surgeon at [facility] Pending Studies at Discharge: No Stand-Alone Forms: My [facility] Skilled Items Patient informed of condition?: Yes DNR: No Discharge Level of Care: Skilled Communicable Disease: No Discharge Prognosis: Stable Lines: None Urinary Catheter: No Medications and DC Order Prescriptions: Continued carbidopa-levodopa 50-200 mg tablet extended release 1 tab PO HS tamsulosin 0.4 mg capsule 0.4 mg PO HS omeprazole 20 mg capsule,delayed release(DR/EC) 20 mg PO QAM Rx Instructions: take 1 hour before breakfast carbidopa-levodopa 25-100 mg tablet 1.5 tab PO 6XD albuterol sulfate 2.5 mg /3 mL (0.083 %) Solution For Nebulization 2.5 mg INHALATION Q4 PRN (Reason: Shortness Of Breath Or Wheezing) cyanocobalamin (vitamin B-12) 1,000 mcg Tablet 1,000 mcg PO DAILY fluticasone propionate 50 mcg/actuation spray,suspension 2 spray INTRANASAL DAILY omega-3 fatty acids Capsule 1,000 mg PO DAILY cholecalciferol (vitamin D3) [Vitamin D3] 50 mcg (2,000 unit) Tablet 50 mcg PO DAILY furosemide 40 mg tablet 40 mg PO DAILY ropinirole 3 mg tablet 3 mg PO QID lisinopril 5 mg tablet 5 mg PO DAILY ropinirole 12 mg tablet extended release 24 hr 12 mg PO HS Discharge Orders: Discharge Order (Routine); Ordered 09/01/22 Ordered By: Haleigh Becker Admission Data Admit Date/Time: 08/29/22 14:34 Attending Provider: Haleigh Becker Admit Provider: Raf Yang Primary Care Provider: Miguel Angel Curran Other Providers: Karl Hillman ; Jenny Scott ; Medardo Martinez ; Romi Lundberg ; Nilton Croft ; Suzi Beltran ; Maricel Looney ; Clau Beck ; Maurice Crook ; Carlitos Salazar ; Wicho Murcia ; Wicho Johnson ; Karen AmericusSubha ; [facility] Other Interventions: Discharge Summary Assessment (RN) Last Done: 09/01/22 09:51
== END 2022-09-01 12:11 | DRG 543 ==
LOC: ED 18:29 → 2N 18:29 → SUATTDRO 08-29 14:34

== ENCOUNTER 2022-09-05 23:54 | Inpatient (IN) ==
[2022-09-06] MEDS ORDERED: methylPREDNISolone 125 MG/2 ML VIAL IV STA (00:02)
--- NOTE | 2022-09-06 00:06 | Emergency Department Note ---
History of Present Illness General Chief complaint: Shortness of Breath/Dyspnea Stated complaint: RESPIRATORY/COUGH Time Seen by Provider: 09/05/22 23:56 History of Present Illness 72-year-old male presents via EMS from the [facility] with reported shortness of breath this evening. Patient had a low pulse ox was started on 4 L of oxygen after the husker operator noticed that the oxygen was not currently on the patient upon arrival is had a cough cold congestion. Patient's had a recent left humeral fracture. Patient is a poor historian. Reportedly the patient's had an increased cough over the past few days with associated congestion. Home Medications Medication Instructions Recorded Confirmed Type albuterol sulfate 2.5 mg/3 mL 2.5 mg inhalation Q4 PRN Shortness 01/21/20 08/27/22 History (0.083 %) solution for nebulization Of Breath Or Wheezing carbidopa 25 mg-levodopa 100 mg 1.5 tab PO 6XD 01/21/20 08/27/22 History tablet carbidopa ER 50 mg-levodopa 200 mg 1 tab PO HS 01/21/20 08/27/22 History tablet,extended release cyanocobalamin (vitamin B-12) 1,000 mcg PO DAILY 01/21/20 08/27/22 History 1,000 mcg tablet fluticasone propionate 50 2 spray intranasal DAILY 01/21/20 08/27/22 History mcg/actuation nasal spray,suspension omeprazole 20 mg capsule,delayed 20 mg PO QAM 01/21/20 08/27/22 History release tamsulosin 0.4 mg capsule 0.4 mg PO HS 01/21/20 08/27/22 History cholecalciferol (vitamin D3) 50 50 mcg PO DAILY 07/31/21 08/27/22 History mcg (2,000 unit) tablet (Vitamin D3) omega-3 fatty acids 1,000 mg PO DAILY 07/31/21 08/27/22 History furosemide 40 mg tablet 40 mg PO DAILY 08/27/22 08/27/22 History lisinopril 5 mg tablet 5 mg PO DAILY 08/27/22 08/27/22 History ropinirole 12 mg tablet,extended 12 mg PO HS 08/27/22 08/27/22 History release 24 hr ropinirole 3 mg tablet 3 mg PO QID 08/27/22 08/27/22 History Allergies Allergy/AdvReac Type Severity Reaction Status Date / Time sulindac AdvReac Intermediate STOMACH Verified 07/31/21 03:17 IRRATION Past Med/Surg History Medical History BPH (benign prostatic hypertrophy) Chronic diastolic heart failure Chronic hypercapnic respiratory failure COPD (chronic obstructive pulmonary disease) Dyslipidemia GERD (gastroesophageal reflux disease) History of kidney stones HTN (hypertension) Hypercapnic respiratory failure Iron deficiency anemia YOON (obstructive sleep apnea) bipap with 2.5L oxygen Parkinson disease Surgical History H/O inguinal hernia repair H/O shoulder surgery reverse total shoulder arthroplasty- right. 01/2017. Dr Helton at [facility] revision total shoulder arthroplasty -right. 11/2021. Dr Orozco at [facility] S/P deep brain stimulator placement Family History Other Asthma Diabetes Hypertension Prostate cancer Social History Smoking Status: Never smoker Tobacco Type: Cigarettes Second Hand Exposure: No; Hx Alcohol Use: No Hx Substance Use: No Preferred Language: Thai Communication Ability: Impaired Monotype Operator Required: No Beliefs That Will Affect Care: None marital status: Current Living Situation: Spouse Current Living Situation Comment: Home with spouse who is unable to care for him - Was to recieve home health Feels Safe at Home: Yes Assistive Devices: BiPap, Lift Chair, Oxygen - at Night, Scooter/Electric Scooter, Walker and Wheelchair Review of Systems Unobtainable due to cognitive status Physical Exam Vital Signs Vital Signs - 24 hr 09/06/22 00:05 09/06/22 00:05 09/06/22 00:05 Temperature 37.1 C Temperature Source Oral Pulse Rate [Left Finger] 81 Respiratory Rate 26 H Respiratory Effort / Characteristics Accessory Muscle Use Blood Pressure [Right Arm] 101/60 Blood Pressure Mean [Right Arm] 73 Blood Pressure Position [Right Arm] Lying Pulse Oximetry 96 Oxygen Delivery Method Nasal Cannula Nasal Cannula Nasal Cannula Oxygen Flow Rate 4 4 4 09/06/22 01:26 Temperature Temperature Source Pulse Rate [Left Finger] 82 Respiratory Rate 26 H Respiratory Effort / Characteristics Blood Pressure [Right Arm] 94/66 L Blood Pressure Mean [Right Arm] 75 Blood Pressure Position [Right Arm] Pulse Oximetry 94 Oxygen Delivery Method Nasal Cannula Oxygen Flow Rate 4 GENERAL: Patient is awake alert in no acute distress patient is resting comfortably EYES: The conjunctivae are clear. The pupils are round and reactive. EARS, NOSE, MOUTH AND THROAT: The nose is without any evidence of any deformity. Mucous membranes are moist. Tongue is midline. NECK: Patient has torticollis RESPIRATORY: Rhonchi bilaterally CARDIOVASCULAR: Regular rate and rhythm noted there no murmurs rubs or gallops normal S1 normal S2. GASTROINTESTINAL: The abdomen is soft. Abdomen is nontender. PELVIS: The Pelvis is stable. No tenderness to palpation is noted. BACK: No midline tenderness or or step-off noted range of motion in flexion extension as well as rotation no signs of muscle spasm noted MUSCULOSKELETAL/EXTREMITIES: There is no evidence of gross deformity full range of motion is noted in the hips and shoulders. Patient has hammertoe right foot SKIN: There is no obvious evidence of any rash. There are no petechiae, pallor or cyanosis noted. NEUROLOGIC: Patient is awake alert; patient has dysarthric speech Course Reevaluation(s) Reevaluation #1: Patient was started on 4 L of oxygen, patient was started on empiric antibiotics for left lower lobe pulmonary infiltrate. Patient is not in septic shock. I suspect that the patient is experiencing COPD exacerbation Time: 01:55 Consultations Consultation #1: [facility] hospitalist for admission Time: 01:56 Administered Medications Azithromycin 500 mg/ Dextrose 255 mls @ 127.5 mls/hr IV NOW STA Stop: 09/06/22 02:43 Last Admin: 09/06/22 01: Dose: 127.5 mls/hr Documented By: HOUSTON Discontinued Medications Ceftriaxone Sodium (Rocephin) 2,000 mg in 70 mls @ 140 mls/hr IV NOW STA Stop: 09/06/22 01:13 Last Infusion: 09/06/22 01:26 Dose: 0 mls/hr Documented By: Admin: 09/06/22 00:53 Dose: 140 mls/hr Documented By: HOUSTON Methylprednisolone (Methylprednisolone 125 Mg/2 Ml Vial) 125 mg IV NOW STA Stop: 09/06/22 00:03 Last Admin: 09/06/22 00:27 Dose: 125 mg Documented By: HOUSTON Medical Decision Making Medical Records Attestation: I reviewed the patient's medical records. Home Medications Current Medication List: was personally reviewed by me Laboratory Data Attestation: I reviewed the patient's lab results. Result diagrams: 09/06/22 00:30 09/06/22 00:30 Lab Results 09/06/22 09/06/22 09/06/22 Range/Units 00:30 00:30 00:30 WBC 8.22 (4.8-10.8) K/ul RBC 4.06 L (4.63-6.08) M/uL Hgb 12.1 L (14.0-18.0) g/dl Hct 37.7 L (40.1-51.0) % MCV 92.9 (80.0-100.0) fL MCH 29.8 (25.0-34.0) pg MCHC 32.1 (32.0-36.0) g/dL RDW Std Deviation 51.7 H (36.4-46.3) fL RDW Coeff of Helen 14.9 H (11.5-14.5) % Plt Count 324 (130-400) K/uL MPV 9.5 (9.4-12.4) fL Immature Gran % (Auto) 0.4 % Neut % (Auto) 79.7 % Lymph % (Auto) 4.9 % Wells % (Auto) 14.1 % Eos % (Auto) 0.7 % Baso % (Auto) 0.2 % Neut # (Auto) 6.55 H (1.4-6.5) K/uL Lymph # (Auto) 0.40 L (1.2-3.4) K/uL Wells # (Auto) 1.16 H (0.24-0.82) K/uL Eos # (Auto) 0.06 (0-0.50) K/uL Baso # (Auto) 0.02 (0-0.2) K/uL Immature Gran # (Auto) 0.03 H (0.00-0.02) K/uL Sodium 136 (136-145) mmol/L Potassium 3.8 (3.5-5.1) mmol/L Chloride 94 L (98-107) mmol/L Carbon Dioxide 35 H (21-32) mmol/L Anion Gap 7 (3-11) BUN 28 H (6-23) mg/dl Creatinine 0.93 (0.6-1.4) mg/dl Est Cr Clr Drug Dosing 69.1 ml/min Est GFR ( Amer) 96.1 ml/min Est GFR (Non-Af Amer) 82.9 ml/min BUN/Creatinine Ratio 30.1 H (10-20) Glucose 116 H (70-99(Fasting)) mg/dl Lactate (0.4-2.0) mmol/L Calcium 8.7 (8.5-10.1) mg/dl Magnesium 2.0 (1.7-2.4) mg/dl Total Bilirubin 0.5 (0.2-1.0) mg/dl Direct Bilirubin 0.1 (0-0.2) mg/dl AST 15 (13-39) U/L ALT 3 L (7-52) U/L Alkaline Phosphatase 98 (34-104) U/L Troponin I High Sens 15.7 (0-20) pg/ml Total Protein 7.1 (6.0-8.3) gm/dl Albumin 4.1 (3.4-5.0) gm/dl Procalcitonin 0.05 (0-0.5) ng/ml 09/06/22 Range/Units 00:55 WBC (4.8-10.8) K/ul RBC (4.63-6.08) M/uL Hgb (14.0-18.0) g/dl Hct (40.1-51.0) % MCV (80.0-100.0) fL MCH (25.0-34.0) pg MCHC (32.0-36.0) g/dL RDW Std Deviation (36.4-46.3) fL RDW Coeff of Helen (11.5-14.5) % Plt Count (130-400) K/uL MPV (9.4-12.4) fL Immature Gran % (Auto) % Neut % (Auto) % Lymph % (Auto) % Wells % (Auto) % Eos % (Auto) % Baso % (Auto) % Neut # (Auto) (1.4-6.5) K/uL Lymph # (Auto) (1.2-3.4) K/uL Wells # (Auto) (0.24-0.82) K/uL Eos # (Auto) (0-0.50) K/uL Baso # (Auto) (0-0.2) K/uL Immature Gran # (Auto) (0.00-0.02) K/uL Sodium (136-145) mmol/L Potassium (3.5-5.1) mmol/L Chloride (98-107) mmol/L Carbon Dioxide (21-32) mmol/L Anion Gap (3-11) BUN (6-23) mg/dl Creatinine (0.6-1.4) mg/dl Est Cr Clr Drug Dosing ml/min Est GFR ( Amer) ml/min Est GFR (Non-Af Amer) ml/min BUN/Creatinine Ratio (10-20) Glucose (70-99(Fasting)) mg/dl Lactate 0.9 (0.4-2.0) mmol/L Calcium (8.5-10.1) mg/dl Magnesium (1.7-2.4) mg/dl Total Bilirubin (0.2-1.0) mg/dl Direct Bilirubin (0-0.2) mg/dl AST (13-39) U/L ALT (7-52) U/L Alkaline Phosphatase (34-104) U/L Troponin I High Sens (0-20) pg/ml Total Protein (6.0-8.3) gm/dl Albumin (3.4-5.0) gm/dl Procalcitonin (0-0.5) ng/ml Imaging Data Attestation: I personally reviewed and interpreted this imaging study as follows: My Impression: Chest x-ray interpreted by me cardiomegaly pacemaker is present there appears to be a left lower lobe infiltrate is poor inspiratory effort however ECG Data Attestation: I personally reviewed and interpreted this ECG as follows: Additional Comments: EKG interpreted by me sinus rhythm rate of 74 normal intervals normal axis no obvious ST segment elevation or depression MDM Narrative Medical decision making differential diagnosis includes COPD, bronchitis, upper respiratory tract infection, pneumonia, CHF. Plan is to check labs, EKG, chest x-ray. Patient was evaluated for shortness of breath started on oxygen, may have left lower lobe pulmonary infiltrate, was started on empiric antibiotics, was also given IV Solu-Medrol. I suspect that this is a COPD exacerbation with pulmonary infiltrate. He was discussed with the hospitalist for admission. Impression & Plan COPD with acute exacerbation, Hypoxia, Pulmonary infiltrate Discharge Plan Visit Data Chief Complaint: Shortness of Breath/Dyspnea Stated Complaint: RESPIRATORY/COUGH ED Provider: Musa Munoz Discharge Problem: COPD with acute exacerbation, Hypoxia, Pulmonary infiltrate Patient Disposition: Being Evaluated by Hospitalist Forms Stand Alone Forms: My [facility] [employer] Prescriptions Prescriptions: No Action carbidopa-levodopa 50-200 mg tablet extended release 1 tab PO HS tamsulosin 0.4 mg capsule 0.4 mg PO HS omeprazole 20 mg capsule,delayed release(DR/EC) 20 mg PO QAM Rx Instructions: take 1 hour before breakfast carbidopa-levodopa 25-100 mg tablet 1.5 tab PO 6XD albuterol sulfate 2.5 mg /3 mL (0.083 %) Solution For Nebulization 2.5 mg INHALATION Q4 PRN (Reason: Shortness Of Breath Or Wheezing) cyanocobalamin (vitamin B-12) 1,000 mcg Tablet 1,000 mcg PO DAILY fluticasone propionate 50 mcg/actuation spray,suspension 2 spray INTRANASAL DAILY omega-3 fatty acids Capsule 1,000 mg PO DAILY cholecalciferol (vitamin D3) [Vitamin D3] 50 mcg (2,000 unit) Tablet 50 mcg PO DAILY furosemide 40 mg tablet 40 mg PO DAILY ropinirole 3 mg tablet 3 mg PO QID lisinopril 5 mg tablet 5 mg PO DAILY ropinirole 12 mg tablet extended release 24 hr 12 mg PO HS Referrals Referrals: Miguel Angel Curran DO [Primary Care Provider] -
[2022-09-06] MEDS ORDERED: AZITHROMYCIN 500 MG in DEXTROSE 5% 250 ML IV STA (00:44)
[2022-09-06] MEDS ORDERED: cefTRIAXone SODIUM 2,000 MG/70 ML BAG IV STA (00:44)
[2022-09-06 00:47] LABS: Basophils # (auto) 0.02 K/uL (0-0.2); Basophils % (auto) 0.2 %; Eosinophils # (auto) 0.06 K/uL (0-0.50); Eosinophils % (auto) 0.7 %; Hematocrit (blood only) 37.7 % (40.1-51.0); Hemoglobin 12.1 g/dl (14.0-18.0); Immature Granulocytes # (auto) 0.03 K/uL (0.00-0.02); Immature Granulocytes % (auto) 0.4 %; Lymphocytes % (auto) 4.9 %; Mean Corpuscular Hemoglobin 29.8 pg (25.0-34.0); Mean Corpuscular Hgb Conc 32.1 g/dL (32.0-36.0); Mean Corpuscular Volume 92.9 fL (80.0-100.0); Mean Platelet Volume 9.5 fL (9.4-12.4); Monocytes # (auto) 1.16 K/uL (0.24-0.82); Monocytes % (auto) 14.1 %; Neutrophils # (auto) 6.55 K/uL (1.4-6.5); Neutrophils % (auto) 79.7 %; Platelet Count 324 K/uL (130-400); RDW Coefficient of Variation 14.9 % (11.5-14.5); RDW Standard Deviation 51.7 fL (36.4-46.3); Red Blood Count 4.06 M/uL (4.63-6.08); White Blood Count 8.22 K/ul (4.8-10.8)
[2022-09-06 01:24] LABS: Troponin I High Sensitivity 15.7 pg/ml (0-20)
[2022-09-06 01:37] LABS: Albumin Level 4.1 gm/dl (3.4-5.0); BUN Creatinine Ratio 30.1 (10-20); Bilirubin Direct 0.1 mg/dl (0-0.2); Bilirubin,Total 0.5 mg/dl (0.2-1.0); Calcium 8.7 mg/dl (8.5-10.1); Creatinine Clr Calc Pharmacy 69.1 ml/min; Est GFR (African American) 96.1 ml/min; Est GFR (Non-African American) 82.9 ml/min; Potassium 3.8 mmol/L (3.5-5.1); Total Protein 7.1 gm/dl (6.0-8.3)
[2022-09-06 01:59] LABS: Influenza B virus by PCR Negative (Neg); RSV by PCR Negative (Neg); SARS CoV2 RNA(COVID-19) Ceph NEGATIVE (Negative)
[2022-09-06 03:39] LABS: Influenza A virus by PCR Positive (Neg)
[2022-09-06 04:19] LABS: Appearance Urine Clear (Clear); Bacteria Urine Automated Negative (Negative); Bilirubin Urine Negative (Negative); Blood Urine Negative (Negative); Color Urine Dark Yellow; Epithelial Cell Urine Auto 20-30 /lpf (0-5); Glucose Urine UA Negative (Negative); Ketones Urine Trace (Negative); Leukocyte Esterase Urine Negative (Negative); Nitrite Urine Negative (Negative); Protein Urine Trace (Negative); RBC Urine Automated 0-4 /hpf (0-4); Specific Gravity Urine 1.027 (1.000-1.030); Urobilinogen Urine Negative (Negative)
[2022-09-06] MEDS ORDERED: SODIUM CHLORIDE 0.9% 1000ML 1,000 ML IV SCH (04:22)
[2022-09-06] MEDS ORDERED: ALBUT/IPRATROP 3MG/0.5MG NEB 3 ML VIAL NEB PRN (04:22)
[2022-09-06] MEDS ORDERED: NITROGLYCERIN SL 0.4 MG/TAB TAB SL PRN (04:22)
[2022-09-06] MEDS ORDERED: ACETAMINOPHEN 325 MG TAB PO PRN (04:22)
[2022-09-06] MEDS ORDERED: POLYETHYLENE (MIRALAX) 17 GM PACK PO PRN (04:22)
[2022-09-06] MEDS: ALBUT/IPRATROP 3MG/0.5MG NEB 3 ML VIAL NEB SCH ×4 (06:15→18:49)
[2022-09-06] MEDS: ENOXAPARIN INJ 40 MG/0.4 ML SYR SQ SCH (06:16)
[2022-09-06 07:38] LABS: Hematocrit (blood only) 36.7 % (40.1-51.0); Hemoglobin 11.9 g/dl (14.0-18.0); Mean Corpuscular Hemoglobin 30.1 pg (25.0-34.0); Mean Corpuscular Hgb Conc 32.4 g/dL (32.0-36.0); Mean Corpuscular Volume 92.7 fL (80.0-100.0); Mean Platelet Volume 9.6 fL (9.4-12.4); Platelet Count 298 K/uL (130-400); RDW Coefficient of Variation 14.9 % (11.5-14.5); Red Blood Count 3.96 M/uL (4.63-6.08); White Blood Count 6.01 K/ul (4.8-10.8)
[2022-09-06 07:56] LABS: BUN Creatinine Ratio 37.1 (10-20); Calcium 8.4 mg/dl (8.5-10.1); Creatinine Clr Calc Pharmacy 91.8 ml/min; Est GFR (African American) 110.8 ml/min; Est GFR (Non-African American) 95.6 ml/min; Magnesium 2.1 mg/dl (1.7-2.4); Potassium 4.3 mmol/L (3.5-5.1)
[2022-09-06] MEDS ORDERED: methylPREDNISolone 40 MG in SYRINGE 0 ML IV SCH (08:00)
[2022-09-06 08:01] LABS: Basophils # (auto) 0.01 K/uL (0-0.2); Basophils % (auto) 0.2 %; Immature Granulocytes # (auto) 0.02 K/uL (0.00-0.02); Immature Granulocytes % (auto) 0.3 %; Lymphocytes # (auto) 0.17 K/uL (1.2-3.4); Lymphocytes % (auto) 2.8 %; Monocytes # (auto) 0.14 K/uL (0.24-0.82); Monocytes % (auto) 2.3 %; Neutrophils # (auto) 5.67 K/uL (1.4-6.5); Neutrophils % (auto) 94.4 %
--- NOTE | 2022-09-06 08:37 | History and Physical Report ---
DATE OF ADMISSION: 09/06/2022. CHIEF COMPLAINT: Shortness of breath, cough. 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 The patient was recently in the hospital, was admitted on 08/27/2022, and discharged to [facility] on 09/02/2022. He was admitted with closed Hill-Sachs fracture of left humerus, conservative management recommended by Orthopedics. Supposed to follow up with Ortho in four to six weeks. Plan for active assisted range of motion as tolerated and pain control. is in the room, as per , the patient used to walk with a walker before, now he is not ambulating because of left humerus fracture. As per since yesterday he is having a lot of coughing, bringing phlegm and today was short of breath and as his blood pressure was running low EMS was called and he was requiring 4 liters oxygen, currently on 4 liters he is saturating okay. He has humped back, and could not understand his speech. As per the , this is his baseline because of his Parkinson disease. As per the , he is eating, drinking okay, swallowing okay and patient denies any chest pain, denies any headache. No neck pain, has some back pain, no belly pain. Currently saturating okay on 4 liters and seems comfortable. Denies any runny nose, no sore throat, no earache. He always has blurred vision, no nausea, no abdominal pain. ALLERGIES: SULINDAC. PAST MEDICAL HISTORY: As mentioned above. PAST SURGICAL HISTORY: Bronchoscopy, craniotomy, implant of electrode, incision of colon, BPH, inguinal hernia, right shoulder arthroplasty, right thoracocentesis. MEDICATIONS: The patient is on albuterol nebulization p.r.n., carbidopa/levodopa 1 tablet p.o. at bedtime, carbidopa/levodopa 1.5 tab p.o. q. 6 days, vitamin D 50 mcg p.o. daily, vitamin B12 1000 mcg p.o. daily, Flonase 2 sprays intranasal daily, Lasix 40 mg p.o. daily, lisinopril 5 mg p.o. daily, [place] fish oil 1 capsule daily, omeprazole 20 mg p.o. a.m., ropinirole 3 mg p.o. q.i.d., ropinirole 12 mg p.o. at bedtime, Flomax 0.4 mg p.o. at bedtime. FAMILY HISTORY: Significant for father has asthma, heart disorder, hypertension, Parkinson disease, prostate cancer, mother has diabetes. SOCIAL HISTORY: . Quit smoking in 1968. Smoked 0.5 pack a day for one year. No alcohol use. No drug use. REVIEW OF SYSTEMS: As per HPI. The patient is a poor historian. PHYSICAL EXAMINATION: GENERAL: The patient is somewhat crouched in the bed and does not seem to be in acute distress, alert, and awake. VITAL SIGNS: Temperature 37.1, pulse 82, respiratory rate 26, blood pressure 94/66, oxygen 94% on 4 liters. HEENT: Pupils equal, round and reactive to light. Oral mucosa moist. NECK: No JVD, no neck masses. CARDIOVASCULAR: S1 and S2 heard. Regular rate and rhythm. No murmur, no gallop. RESPIRATORY SYSTEM: Somewhat mildly diminished breath sounds. No obvious wheezing or crackles. ABDOMEN: Soft, bowel sounds present, nontender, no distention. CENTRAL NERVOUS SYSTEM: Alert and oriented. Obeys simple commands. Moves extremities. EXTREMITIES: No edema, no erythema. LABORATORY DATA: WBC 8.2, hemoglobin 12.1, hematocrit 37.7, platelets 324. Sodium 136, potassium 3.9, chloride 94, CO2 of 35, BUN 28, creatinine 0.9, serum glucose 116, lactate 0.9, calcium 8.7, magnesium 2, total bilirubin 0.5, direct bilirubin 0.1, AST 15, ALT 33, alkaline phosphatase 98. Troponin I high sensitivity 15.7. IMAGING DATA: Chest x-ray, questionable left lower lobe infiltrate. EKG: Sinus rhythm with PVCs at a rate of 74, no significant change was found. COVID test, flu test, and RSV test is pending. ASSESSMENT AND PLAN: This is a 72-year-old male who presents with shortness of breath, cough, and phlegm, questionable pneumonia. 1. Chronic obstructive pulmonary disease exacerbation, currently requiring 4 liters of oxygen. Not on home oxygen. Received steroids and nebs, and Rocephin and azithromycin in the ER. We will continue with IV Solu-Medrol 40 mg t.i.d. Nebs atc and and p.r.n. IV Rocephin and IV azithromycin. We will get a CT chest to get a better picture. We will monitor for response. Gentle fluids. 2. Recent closed Hill-Sachs fracture of the left humerus, conservative management recommended. Follow with Orthopedics. Discharge back to [facility] when stable. 3. Obstructive sleep apnea on BiPAP at bedtime. 4. History of diastolic congestive heart failure. Continue Lasix. Currently, holding lisinopril. Follow low blood pressure. Getting gentle fluids, monitor for volume overload. 5. Hypertension. Currently, blood pressures is borderline low. Holding lisinopril. Monitor the blood pressure. 6. History of Parkinson's disease, status post deep brain stimulator. Continue his home medications. 7. Benign prostatic hypertrophy. Continue his Flomax. 8. Deep venous thrombosis prophylaxis, Lovenox. Addendum: Influenza a positive. Droplet precautions. Started on Tamiflu. Can d/c abx. DISPOSITION: Closely monitor in med tele. Discharge back to [facility] when stable. Level 1 full code. Job ID: [id number] [facility]
--- NOTE | 2022-09-06 08:46 | XRay Report ---
XR chest 1V portable CLINICAL HISTORY: Sepsis TECHNIQUE: Single frontal radiograph of the chest was obtained. Comparison: Comparison is made to chest radiograph 08/27/2022 FINDINGS: No lines and tubes are seen. Calcified aortic knob is seen. The lungs are clear. No evidence of pleur al effusion or pneumothorax. Right shoulder arthroplasty is seen. Degenerative changes of the left sh oulder. IMPRESSION: No acute abnormalities and in particular no evidence of pneumonia. ACT 112: Negative or not required by law. Electronically signed by: Merlin Ng M.D. 09/06/2022 8:44 AM
--- NOTE | 2022-09-06 09:01 | CT Scan Report ---
CT chest diagnostic wo con CLINICAL HISTORY: sob , hypoxia, pneumonia? TECHNIQUE: Multidetector row helical CT of the chest was performed. Coronal and sagittal reformations were obtained. Automated dose lowering techniques and/or adjustment according to patient size were u tilized for this exam. CT DOSE: 629.59 mGy.cm Comparison: Comparison is made to CTA chest 07/31/2021 FINDINGS: Lungs and pleura: Atelectasis is seen in the lung base. There is a 4 mm nodule in the left lower lobe (series 4 image 120). Heart and pericardium: Heart size is normal. No pericardial effusion. Vessels: Moderate atherosclerotic changes in the aorta and coronary arteries. Mediastinum and lakhwinder: Unremarkable. Chest wall and lower neck: Unremarkable. A left neural stimulator is unchanged Abdomen: A large hiatal hernia is seen. Bones: Chronic dislocation of the left shoulder. Right shoulder arthroplasty and degeneration are see n. Heterotopic ossification is seen in the bilateral shoulders. Bilateral rib fractures are seen whic h appear subacute to chronic. Degenerative changes are seen in the spine. IMPRESSION: 1. No evidence of pneumonia. Atelectasis is seen. There is a tiny pulmonary nodule measuring up to 4 mm. 2. Chronic degenerative changes in the shoulders and spine. Additional findings as above. ACT 112: Negative or not required by law. Electronically signed by: Merlin Ng M.D. 09/06/2022 8:59 AM
[2022-09-06] MEDS: FLUTICASONE PROPIONATE NA SPR 16 GM BTL SCH (09:37)
[2022-09-06] MEDS: CARBIDOPA/LEVODOPA 25/100MG TAB PO SCH ×5 (09:40→21:25)
[2022-09-06] MEDS: CHOLECALCIFEROL 1,000 UNITS 25 MCG TAB PO SCH (09:43)
[2022-09-06] MEDS: CYANOCOBALAMIN (B-12) 500 MCG TABLET PO SCH (09:45)
[2022-09-06] MEDS: FUROSEMIDE 40 MG TAB PO SCH (09:45)
[2022-09-06] MEDS: PANTOprazole 40 MG TAB PO SCH (09:46)
[2022-09-06] MEDS: rOPINIRole HCL 1 MG TABLET PO SCH ×4 (09:47→21:22)
[2022-09-06] MEDS: OSELTAMIVIR PHOSPHATE 75 MG CAP PO SCH ×2 (09:55→21:24)
--- NOTE | 2022-09-06 12:24 | Electrocardiogram Report ---
Test Reason : Blood Pressure : / mmHG Vent. Rate : 074 BPM Atrial Rate : 074 BPM P-R Int : 146 ms QRS Dur : 082 ms QT Int : 386 ms P-R-T Axes : 048 -11 033 degrees QTc Int : 428 ms Sinus rhythm with Premature supraventricular complexes Otherwise normal ECG When compared with ECG of 29-MAY-2022 16:24, No significant change was found Confirmed by Alex March ([id number]) on 09/06/2022 12:23:47 PM Referred By: REFERRED SELF Confirmed By:Alex March
--- NOTE | 2022-09-06 13:29 | Communication Note ---
Date of Service: September 06, 2022 Patient seen and examined in the emergency department. He is sitting up on the bed comfortably; not in any distress. He is saturating well at 4 L of oxygen. On examination Awake, not in any discomfort Chestno wheeze/crackles Abdomensoft nontender Neurogrossly intact Influenza A came back positive; started on Tamiflu 75 mg twice daily for 5 days. We will continue on current antibiotics, duo nebs. We will hold off on steroids for now.
[2022-09-06] MEDS ORDERED: cefTRIAXone SODIUM 2,000 MG in DEXTROSE 5% 50 ML IV SCH (20:00)
[2022-09-06] MEDS ORDERED: cefTRIAXone SODIUM 2000MG/70ML D5W IV ONE (20:55)
[2022-09-06] MEDS ORDERED: CARBIDOPA/LEVODOPA 50/200MG EXT REL TAB PO SCH (21:00)
[2022-09-06] MEDS ORDERED: TAMSULOSIN HCL 0.4 MG CAP PO SCH (21:00)
[2022-09-07] MEDS: CARBIDOPA/LEVODOPA 25/100MG TAB PO SCH ×4 (01:08→13:53)
[2022-09-07 04:44] LABS: Hematocrit (blood only) 34.1 % (40.1-51.0); Hemoglobin 11.2 g/dl (14.0-18.0); Immature Granulocytes # (auto) 0.03 K/uL (0.00-0.02); Immature Granulocytes % (auto) 0.6 %; Lymphocytes # (auto) 0.41 K/uL (1.2-3.4); Lymphocytes % (auto) 7.6 %; Mean Corpuscular Hgb Conc 32.8 g/dL (32.0-36.0); Mean Corpuscular Volume 91.4 fL (80.0-100.0); Mean Platelet Volume 9.6 fL (9.4-12.4); Monocytes # (auto) 0.67 K/uL (0.24-0.82); Monocytes % (auto) 12.5 %; Neutrophils # (auto) 4.26 K/uL (1.4-6.5); Neutrophils % (auto) 79.3 %; Platelet Count 290 K/uL (130-400); RDW Coefficient of Variation 14.4 % (11.5-14.5); RDW Standard Deviation 48.2 fL (36.4-46.3); Red Blood Count 3.73 M/uL (4.63-6.08); White Blood Count 5.37 K/ul (4.8-10.8)
[2022-09-07 05:12] LABS: BUN Creatinine Ratio 41.7 (10-20); Calcium 8.2 mg/dl (8.5-10.1); Creatinine Clr Calc Pharmacy 107.1 ml/min; Est GFR (African American) 118.1 ml/min; Est GFR (Non-African American) 101.9 ml/min; Potassium 3.9 mmol/L (3.5-5.1)
[2022-09-07] MEDS: ALBUT/IPRATROP 3MG/0.5MG NEB 3 ML VIAL NEB SCH ×2 (06:18→10:56)
[2022-09-07] MEDS: rOPINIRole HCL 1 MG TABLET PO SCH ×2 (07:55→14:00)
[2022-09-07] MEDS: ENOXAPARIN INJ 40 MG/0.4 ML SYR SQ SCH (07:55)
[2022-09-07] MEDS: CHOLECALCIFEROL 1,000 UNITS 25 MCG TAB PO SCH (07:56)
[2022-09-07] MEDS: FLUTICASONE PROPIONATE NA SPR 16 GM BTL SCH (07:56)
[2022-09-07] MEDS: CYANOCOBALAMIN (B-12) 500 MCG TABLET PO SCH (07:56)
[2022-09-07] MEDS: FUROSEMIDE 40 MG TAB PO SCH (07:56)
[2022-09-07] MEDS: OSELTAMIVIR PHOSPHATE 75 MG CAP PO SCH (07:57)
[2022-09-07] MEDS: PANTOprazole 40 MG TAB PO SCH (07:57)
[2022-09-07] MEDS ORDERED: AZITHROMYCIN 250 MG TAB PO SCH (09:00)
[2022-09-07] MEDS ORDERED: AZITHROMYCIN 250 MG in DEXTROSE 5% 250 ML IV SCH (09:00)
--- NOTE | 2022-09-07 17:45 | Discharge Summary ---
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 The patient was recently in the hospital, was admitted on 08/27/2022, and discharged to [facility] on 09/02/2022. He was admitted with closed Hill-Sachs fracture of left humerus, conservative management recommended by Orthopedics. Supposed to follow up with Ortho in four to six weeks. Plan for active assisted range of motion as tolerated and pain control. is in the room, as per , the patient used to walk with a walker before, now he is not ambulating because of left humerus fracture. As per since yesterday he is having a lot of coughing, bringing phlegm and today was short of breath and as his blood pressure was running low EMS was called and he was requiring 4 liters oxygen, currently on 4 liters he is saturating okay. He has humped back, and could not understand his speech. As per the , this is his baseline because of his Parkinson disease. As per the , he is eating, drinking okay, swallowing okay and patient denies any chest pain, denies any headache. No neck pain, has some back pain, no belly pain. Currently saturating okay on 4 liters and seems comfortable. Denies any runny nose, no sore throat, no earache. He always has blurred vision, no nausea, no abdominal pain. Principal Diagnosis Influenza A Discharge Exam Constitutional: WD/WN, vitals as above, NAD, sitting up in bed, pleasant, conversing easily Respiratory: normal respiratory effort, lungs clear to auscultation, no wheeze, rales, rhonchi. Normal insp/exp effort, no accessory muscle use Cardiovascular: RRR, no murmur, no edema Vessels: no JVD or carotid bruit Chest: normal inspection of chest Abdomen: normal bowel sounds, soft, nontender, no hepatosplenomegaly Musculoskeletal: no cyanosis or clubbing, extremities motor strength 5/5 Skin: no rashes, warm and dry normal turgor Neurologic: PERRL, EOMI, accommodation nl, no face palsy, no dysarthria CN's II- XI intact bilaterally and moves all extremities Psychiatric: A+Ox3, euthymic affect Lymphatic: no cervical or axillary lymphadenopathy : deferred Discharge Data Allergies Allergy/AdvReac Type Severity Reaction Status Date / Time sulindac AdvReac Intermediate STOMACH Verified 09/06/22 02:53 IRRATION Consultations 09/06/22 01:54 ED Decision to Admit Stat Ordered Studies 09/06/22 02:27 CT chest diagnostic wo con Urgent Hospital Course (1) Influenza A: (2) COPD with acute exacerbation: Plan Patient is a 72 with past medical history of YOON, COPD presented to the ED from rehab with cough and shortness of breath. He was recently admitted for closed Hill-Sachs fracture of the left humerus; was treated conservatively and discharged to the Rehab. on presentation to the ED, patient was hypoxic; placed on 4L of NC. He was given duo nebs, steroids and was started on antibiotics. CT chest was done which did not show any infiltrate/pneumonia. Influenza A came back positive. Patient was started on Tamiflu. Over the course of the hospitalization, patient showed improvement in his oxygenation and was back to room air at discharge. He was discharged back to rehab with instruction to finish the course of Tamiflu. Total Time Total Time Spent Total Time Spent (In Minutes): 35 Discharge Plan Discharge Items Patient Disposition: Transfer Long Term Fac Reason For Visit: SOB Discharge Diagnosis: Influenza A COPD Activity: Resume your previous activity Non-emergency contact: Primary Care Provider Call non-emergency contact if: you have any medication questions and your symptoms worsen Follow-up/Referrals: Miguel Angel Curran, [Primary Care Provider] - Diet: Regular Diet Texture: Easy to Chew Addtl Attending Provider Instructions: You were admitted here with Influenza A. Please take Tamiflu 75mg twice daily for 4 days. You are also prescribed azithromycin 500mg once a day fo 2 more days for COPD excerebation. Please continue aspiration precautions. Continue physical therapy. Pending Studies at Discharge: No Stand-Alone Forms: My [facility] [place] [employer], Smoking Cessation Skilled Items Patient informed of condition?: Yes DNR: No Discharge Level of Care: Skilled Communicable Disease: Yes Discharge Prognosis: Stable Lines: None Urinary Catheter: No Medications and DC Order Prescriptions: New azithromycin 250 mg Tablet 500 mg PO QAM 2 Days Qty: 4 0RF oseltamivir [Tamiflu] 75 mg Capsule 75 mg PO BID 4 Days Qty: 8 0RF Continued carbidopa-levodopa 50-200 mg tablet extended release 1 tab PO HS tamsulosin 0.4 mg capsule 0.4 mg PO HS omeprazole 20 mg capsule,delayed release(DR/EC) 20 mg PO QAM Rx Instructions: take 1 hour before breakfast carbidopa-levodopa 25-100 mg tablet 1.5 tab PO Q6 albuterol sulfate 2.5 mg /3 mL (0.083 %) Solution For Nebulization 2.5 mg INHALATION Q4 PRN (Reason: Shortness Of Breath Or Wheezing) cyanocobalamin (vitamin B-12) 1,000 mcg Tablet 1,000 mcg PO DAILY fluticasone propionate 50 mcg/actuation spray,suspension 2 spray INTRANASAL DAILY omega-3 fatty acids Capsule 1,000 mg PO DAILY cholecalciferol (vitamin D3) [Vitamin D3] 50 mcg (2,000 unit) Tablet 50 mcg PO DAILY furosemide 40 mg tablet 40 mg PO DAILY ropinirole 3 mg tablet 3 mg PO QID Rx Instructions: Take am, afternoon,pm & hs lisinopril 5 mg tablet 5 mg PO DAILY ropinirole 12 mg tablet extended release 24 hr 12 mg PO HS Discharge Orders: Discharge Order (Routine); Ordered 09/07/22 Ordered By: Kd Day Admission Data Admit Date/Time: 09/06/22 02:23 Attending Provider: Kd Day Admit Provider: Curry Wynn Primary Care Provider: Miguel Angel Curran Other Providers: Curry Wynn ; [facility] Other Interventions: Discharge Summary Assessment (RN) Last Done: 09/07/22 14:04
== END 2022-09-07 14:55 | DRG 191 ==
LOC: ED 23:54 → EDINP 09-06 02:23